=== PATIENT | male | born 1930 | race Hispanic/Latino ===

== ENCOUNTER 2018-04-03 17:07 | Inpatient (IN) | payer MEDICARE ==
[~2018-04-03 17:07] MED LIST: ISOVUE-370 76%-LOCM 1 ML ONE
[2018-04-03 17:44] LABS: #Basophils 0.2 thou/uL (0.0-0.2); #Eosinphils 0.1 thou/uL (0.0-0.7); #Lymphocytes 5.9 thou/uL (1.20-3.40); #Monocytes 0.5 thou/uL (0.11-0.59); #Neutrophils 5.7 thou/uL (1.40-6.50); %Basophils 1.7 % (0.0-1.0); %Eosinophils 0.8 % (0.0-10.0); %Lymphocytes 47.3 % (21.0-51.0); %Neutrophils 46.2 % (42.0-75.0); Mean Corpuscular HGB CONC 33.4 g/dL (32.0-36.0); Mean Corpuscular Hemoglobin 32.9 pg (27.0-31.0); Mean Corpuscular Volume 98.5 fL (78.0-98.0); Mean Platelet Volume 7.3 fL (7.4-10.4); Platelet Count 202 thou/uL (130-400); RBC Distribution Width 12.1 % (11.5-14.5); Red Blood Cell (RBC) Count 4.25 mill/uL (4.70-6.10); White Blood Cell (WBC) Count 12.4 thou/uL (4.8-10.8)
[2018-04-03 18:01] LABS: ALT (SGPT) Less than 7 U/L (8-55); AST (SGOT) 20 U/L (5-34); Albumin 3.9 g/dL (3.4-4.8); Alkaline Phosphatase 71 U/L (40-150); Anion Gap 13 mmol/L (10-20); BUN (Urea Nitrogen) 18 mg/dL (8.4-25.7); Bilirubin, Total 0.8 mg/dL (0.2-1.2); Calc. Creatinine Clearance 0 mL/min (70-130); Calcium 9.6 mg/dL (7.8-10.44); Carbon Dioxide 26 mmol/L (23-31); Chloride 107 mmol/L (98-107); Estimated GFR-MDRD 42; Globulin 2.9 g/dL (2.4-3.5); Glucose 113 mg/dL (83-110); Potassium 3.5 mmol/L (3.5-5.1); Protein, Total 6.8 g/dL (5.8-8.1); Sodium 142 mmol/L (136-145)
[2018-04-03 18:26] LABS: CKMB 0.7 ng/mL (0-6.6); Troponin I Less than 0.010 ng/mL (< 0.028)
[2018-04-03 18:34] LABS: Bilirubin Small (Negative); Blood, Urine Moderate (Negative); Clarity CLOUDY (Clear); Glucose, Urine (Dipstick) Negative (Negative); Leukocyte Small (Negative); Nitrite Negative (Negative); Protein, Urine (Dipstick) 30 mg/dL (Neg-Trace)
[2018-04-03 18:36] LABS: Hyaline Casts/LPF 7-10 HYALINE CAST LPF (0-3 Hyaline); Pathc Cast-AUWi Flag 1.16 (0-2.49)
[2018-04-03 18:37] LABS: Yeast-AUWi Flag 50.1 (0-25.0)
[2018-04-03 18:45] LABS: Bacteria/HPF Rare-Few HPF (None Seen); Yeast-All Forms None Seen HPF (None Seen)
--- NOTE | 2018-04-03 19:56 | RAD ---
PORTABLE CHEST: 04/03/18 HISTORY: Mental status change. COMPARISON: 09/09/16. Rounded mass lesion right mid lung is stable. Cardiomegaly. Lung carlin are clear of acute infiltrate . AICD leads have been placed since the prior study. IMPRESSION: No acute lung process identified. POS: [facility]
--- NOTE | 2018-04-03 21:23 | CT ---
CT BRAIN WITHOUT CONTRAST: 04/03/18 HISTORY: Syncope. Altered mental status. FINDINGS: There are changes of cortical atrophy and old infarction in the right occipital lobe. Ventricular siz e is appropriate and the basilar cisterns patent. No evidence of acute infarct, hemorrhage, midline s hift or abnormal extra-axial fluid collections are seen. The bony calvarium is intact. There is mucos al disease in the paranasal sinuses. There is an osteoma in the right anterior ethmoid air cells. IMPRESSION: No CT evidence of acute intracranial process. POS: [facility]
[2018-04-03] MEDS ORDERED: Nitrofurantoin Macrocrystal 50 MG CAP PO SCH (21:30)
--- NOTE | 2018-04-03 22:46 | CT ---
CT ABDOMEN AND PELVIS WITH IV CONTRAST: HISTORY: Left upper quadrant abdominal pain. COMPARISON: 12/24/2014 FINDINGS: A hamartoma in the right lower lobe is again seen. Mild atelectatic changes in the left lung base ar e again seen. There is a tiny calcified granuloma at the posterior aspect of the liver. The patient is post cholecystectomy. The spleen, pancreas, and adrenal glands are unremarkable. 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 There are cysts in the horseshoe kidney on both sides. There is a 9 mm atiya culus in the right ureter, at the pelvic inlet, which was not seen on the previous exam, with mild hy droureteronephrosis. No calculi are seen in the left ureter or in the urinary bladder. The prostate is enlarged. No free air, free fluid, or lymphadenopathy is seen in the abdomen or pelvis. The small bowel loops are not abnormally dilated. There is sigmoid diverticulosis. There is a 13 mm left paraaortic lymph node. Nonspecific stranding of the presacral fat is again not ed. There are vascular calcifications without evidence of aneurysmal dilatation of the abdominal aorta. There is an 8 mm lymph node in the gastrohepatic ligament. Degenerative changes are seen in the spin e. IMPRESSION: 1. Horseshoe kidney with cysts and calculi. 2. A 9 mm right ureteric calculus at the pelvic inlet with mild ipsilateral hydroureteronephrosis. 3. Sigmoid diverticulosis. 4. Prostatic enlargement. 5. 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 6. Prominent lymph nodes in the gastrohepatic ligament and retroperitoneum. POS: [facility]
[2018-04-03] MEDS ORDERED: Albuterol Sulfate 1.25 MG/3 ML NEB NEB PRN (23:04)
[2018-04-03] MEDS ORDERED: Ondansetron HCl/PF 4 MG/2 ML Vial IVP PRN (23:07)
[2018-04-03] MEDS ORDERED: Dextrose 50% Abboject 50 ML SYRINGE SLOW IVP PRN (23:07)
[2018-04-03] MEDS ORDERED: HumaLOG 300 UNITS/3 ML VIAL SC PRN (23:07)
[2018-04-03] MEDS ORDERED: Dextrose 5% in Water 1,000 ML IV PRN (23:07)
[2018-04-03 23:22] VITALS: BMI 32.7
[2018-04-04] MEDS: cefTRIAXone\\ROCEPHIN 1 GM in Sodium Chloride 0.9% 100 ML IVPB SCH (06:00)
[2018-04-04 06:24] LABS: Anion Gap 11 mmol/L (10-20); BUN (Urea Nitrogen) 17 mg/dL (8.4-25.7); Calc. Creatinine Clearance 55 mL/min (70-130); Carbon Dioxide 25 mmol/L (23-31); Chloride 110 mmol/L (98-107); Estimated GFR-MDRD 47; Glucose 93 mg/dL (83-110); Sodium 143 mmol/L (136-145)
[2018-04-04 06:28] LABS: Band 1 % (5-11); Hemoglobin 12.8 g/dL (14.0-18.0); Lymphocytes 53 % (21-51); MDiff Complete? YES; Mean Corpuscular HGB CONC 33.2 g/dL (32.0-36.0); Mean Corpuscular Hemoglobin 32.5 pg (27.0-31.0); Mean Platelet Volume 7.5 fL (7.4-10.4); Monocytes 4 % (0-10); Neutrophil 28 % (42-75); Platelet Count 193 thou/uL (130-400); Reactive Lymphocytes 14 % (0-10); Red Blood Cell (RBC) Count 3.95 mill/uL (4.70-6.10); White Blood Cell (WBC) Count 10.5 thou/uL (4.8-10.8)
[2018-04-04] MEDS: Carvedilol 3.125 MG TAB PO SCH (08:27)
[2018-04-04] MEDS: Finasteride 5 MG TAB PO SCH (08:27)
[2018-04-04] MEDS: Folic Acid 1 MG TAB PO SCH (08:27)
[2018-04-04] MEDS: Tamsulosin HCl 0.4 MG CAP PO SCH (08:28)
[2018-04-04] MEDS: Allopurinol 300 MG TAB PO SCH (08:28)
[2018-04-04] MEDS: Furosemide 20 MG TAB PO SCH (08:28)
[2018-04-04] MEDS: Apixaban 2.5 MG TAB PO SCH ×2 (08:29→21:39)
[2018-04-04] MEDS: Donepezil HCl 5 MG TAB PO SCH (08:29)
[2018-04-04] MEDS: Carbidopa/Levodopa 25-100 mg Tablet PO SCH (08:29)
[2018-04-04] MEDS ORDERED: Lisinopril 5 MG TAB PO SCH (09:00)
[2018-04-04] MEDS ORDERED: Enoxaparin Sodium 40 MG/0.4 ML SYRINGE SC SCH (09:00)
[2018-04-04] MEDS ORDERED: Metoprolol Tartrate 50 MG TAB PO SCH (09:00)
[2018-04-04] MEDS: Betamethasone 0.1% Cream 15 GM TUBE TOP SCH ×2 (09:32→21:39)
[2018-04-04] MEDS: Bicalutamide 50 MG TAB PO SCH (09:36)
--- NOTE | 2018-04-04 11:21 | PDOC.EVN ---
Event Note - Event Note Event Note: I am seeing this patient in follow-up from Dr. Jimenez. H&P not yet transcribed.
--- NOTE | 2018-04-04 11:25 | PDOC.PN ---
- Subjective Encounter Start Date: 04/04/18 Encounter Start Time: 11:22 Mr. Rowland was seen today in follow-up of diarrhea, abdominal pain, and syncope. He has been having problems with diarrhea, loose stools off and on for about a month. He will have cramping abdominal pain on the left side of his abdomen, and then will have a large volume loose stool. No blood. He will be very weak, afterward, and at times, will become incoherent,and confused, and even pass out. Usually this will happen only once a day, but it happens almost everyday. - Objective Resuscitation Status: Resuscitation Status FULL:Full Resuscitation MAR Reviewed: Yes Vital Signs & Weight: Vital Signs (12 hours) Temp Pulse Resp BP Pulse Ox 04/04/18 07:30 98.7 F 93 16 114/82 95 04/04/18 04:00 97.8 F 89 18 108/51 L 93 L Weight Weight 228 lb 4.8 oz I&O: 04/03/18 04/04/18 04/05/18 06:59 06:59 06:59 Intake Total 300 Output Total 150 Balance 150 Result Diagrams: 04/04/18 05:06 04/04/18 05:06 Additional Labs: Accuchecks 04/04/18 06:28 POC Glucose 78 Phys Exam - Physical Examination HEENT: PERRLA Respiratory: no wheezing, no rales, no rhonchi, clear to auscultation bilateral Cardiovascular: RRR, no significant murmur, no rub Gastrointestinal: soft, no distention, positive bowel sounds + left upper quandrant tenderness, no rebound tenderness Musculoskeletal: no edema, pulses present Psychiatric: normal affect, A&O x 3 Skin: normal turgor, cap refill <2 seconds Dx/Plan (1) Chronic diarrhea Code(s): K52.9 - NONINFECTIVE GASTROENTERITIS AND COLITIS, UNSPECIFIED Status : Acute (2) Syncope Code(s): R55 - SYNCOPE AND COLLAPSE Status: Acute (3) Abdominal pain Code(s): R10.9 - UNSPECIFIED ABDOMINAL PAIN Status: Acute (4) Parkinson disease Code(s): G20 - PARKINSON'S DISEASE Status: Chronic (5) Coronary artery disease Code(s): I25.10 - ATHSCL HEART DISEASE OF [place] CORONARY ARTERY W/O ANG PCTRS Status: Acute (6) DM type 2 (diabetes mellitus, type 2) Status: Chronic Qualifiers: Diabetes mellitus 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 helper insulin use: with 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 helper use Diabetes mellitus complication status: with unspecified complications Qualified Code(s) : E11.8 - Type 2 diabetes mellitus with unspecified complications; Z79.4 - terminal press operator (current) use of insulin (7) Complicated UTI (urinary tract infection) Code(s): N39.0 - URINARY TRACT INFECTION, SITE NOT SPECIFIED Status: Acute (8) HTN (hypertension) Code(s): I10 - ESSENTIAL (PRIMARY) HYPERTENSION Status: Chronic Qualifiers: Hypertension type: essential hypertension Qualified Code(s): I10 - Essential (primary) hypertension (9) Chronic systolic congestive heart failure, NYHA class 3 Code(s): I50.22 - CHRONIC SYSTOLIC (CONGESTIVE) HEART FAILURE Status: Acute Comment: EF- 30-35% in 2017 (10) Nephrolithiasis Status: Chronic - Plan * Diarrhea- Some of his symptoms sound like he may be having intermittent partial obstruction- however his was not noted on CT-scan. Will consult GI * Syncope- suspect this may be due to a vagal response after defecation. However he has a history of CAD,and has a defibrillator- will consult Cardiology for evaluation, and have his pacer-defibrillator interrogated * Complicated UTI due to nephrolithiasis- continue Rocephin * DM- blood glucose is stable * HTN- stable * Parkinson's disease- stable * Chronic systolic heart failure- compensated
--- NOTE | 2018-04-04 12:10 | HP ---
PRIMARY CARE PHYSICIAN: [facility] call. CODE STATUS: FULL CODE. TIME OF EVALUATION: 9:35 p.m. CHIEF COMPLAINT: Change in mental status. HISTORY OF PRESENT ILLNESS: This is an 87 years old male patient with past medical history of multiple comorbidities including chronic kidney disease, malingnacy cancer prostate, cardiomegaly, CHF with EF of 35% on last echo, diabetes, hyperlipidemia, hypertension, Parkinson's disease, who came to the hospital after having episodes of change in mental status per family member, the son and were at the room during my examination. The patient has been getting confused, disoriented, especially for the past month, but really worsening in the past 2-3 days. The patient occasionally has been sleepy most of the time, and having some episodes of near syncope every time. The patient has a bowel movement. The patient also reports that was having diarrhea for about a month with no clear etiology, visited the primary care doctor and was given some laxative. Symptoms were reported as severe. No clear triggers or alleviating factors. REVIEW OF SYSTEMS: Review of system was obtained with the help of the and the son. The patient is cooperative; however, as per family has been confused and forgetful. Constitutional: The patient had no fever, chills or generalized weakness. Respiratory: The patient has some cough, no sputum production or shortness of breath. Cardiovascular: No chest pain, palpitation. Gastrointestinal: The patient had nausea, vomiting, diarrhea for about a month, and some abdominal cramps. 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 Genitourinary: No burning with urination. Extremities: No leg swelling. All other systems were reviewed and are negative except for the findings mentioned above. PAST MEDICAL HISTORY: As mentioned in the HPI. PAST SURGICAL HISTORY: Gallbladder stent removal, cholecystectomy, tonsillectomy, pacemaker. PSYCHIATRIC HISTORY: Depression. SOCIAL HISTORY: The patient quit smoking 10 years ago. Lives at home with family. KNOWN ALLERGIES: No known drug allergies. REPORTED MEDICATIONS: Sertraline, cholecalciferol, allopurinol, finasteride, simvastatin, aspirin, bicalutamide, lisinopril, Flomax, carvedilol, furosemide, carbidopa/levodopa, pantoprazole, folic acid, and donepezil. PHYSICAL EXAMINATION: VITAL SIGNS: On presentation, blood pressure 100/67 with heart rate 104, respiratory rate was 20, temperature 98.8, pain 2/10, oxygen saturation 93 on room air. GENERAL APPEARANCE: The patient is alert, oriented, not in any acute distress. HEENT: Eyes: Normal conjunctiva, moist oral mucosa, anicteric. NECK: No JVD. RESPIRATORY: Bilateral air entry. No rales, no wheezing. Symmetric expansion. CARDIOVASCULAR: Normal rate, regular rhythm. No murmurs, no gallop. Bilateral leg edema. ABDOMEN: Soft, normal bowel sounds. MUSCULOSKELETAL: Baseline range of motion and strength. No tenderness. SKIN: Warm and intact. No pallor, no rash or redness. Peripheral pulses are present. Capillary refill seems to be intact. NEUROLOGIC: No evidence of any new focal weakness. Baseline speech. Cranial nerves seem to be intact. However, the patient is confused occasionally with short memory problems. PSYCHIATRIC: The patient is in good mood. No anxiety, oriented, optimal judgement. EKG was reviewed and discussed with the performing physician from the ER. The patient has normal sinus rhythm at the rate of 90 with frequent PVCs, AV dual paced rhythm. Abdomen and pelvis CT was done showed some renal stones, no severe hydronephrosis, some lymph nodes in the retroperitoneal area. LABORATORY DATA: Labs were drawn. The patient has white blood cell count 12.4 , hemoglobin 14, MCV 98.5, platelet count 202. Chemistry: Sodium 142, potassium 3.5, chloride 107, carbon dioxide 26, anion gap 13, BUN 18, creatinine 1.58. Old records that were reviewed by myself. The creatinine is 1.6, still about same value. GFR 42, glucose 113, calcium 9.6, total bilirubin 0.8, AST 20, ALT less than 7, alkaline phosphatase 71. Troponin less than 0.010. Beta-natriuretic peptide that was mildly elevated at 392. UA was reviewed. The patient had a white count in urine was 7-10. ASSESSMENT AND PLAN: The patient will be placed in the hospital with the following medical problem: 1. Urinary tract infection. The patient has white count in urine while treat the patient with antibiotics. We will need to follow cultures. 2. Nausea, vomiting, and diarrhea, this has been going on for the past month, with no clear triggers. The patient saw his primary care doctor, but no diagnosis was obtained at that point. We are going to send stool samples for culture and we will treat accordingly. The patient has had no sick contacts, no travels, and no exposure for antibiotics recently. The patient already on Rocephin. We will follow workup results to adjust treatment. 3. Hyperlipidemia. Continue atorvastatin, low cholesterol diet is advised. 4. Congestive heart failure. Reconcile home medications. Last echo was few months ago as per the patient and the patient's cattle knocker is Dr. Shin. We will need to be called in for further evaluation and management of medications. 5. History of Parkinson's disease. Continue carbidopa/levodopa. 6. Deep venous thrombosis prophylaxis. We will reconcile home medications. 7. Syncope, unclear etiology, will consult Dr Shin, will follow rec's. MTDD
--- NOTE | 2018-04-04 17:07 | CON ---
DATE OF CONSULTATION: 04/04/2018 REASON FOR CONSULTATION: Syncope. HISTORY OF PRESENT ILLNESS: Mr. Rowland is an 87-year-old gentleman who known in the past. He has a history of severe underlying coronary disease and opted against bypass surgery. He has also ICD plac ement. He states over the last several days to weeks, he has had significant diarrhea. He has been found slumped over. He was seen and evaluated in the emergency room with confusion and mental status changes. His ICD was interrogated with no significant source to his syncope. He denies chest pain, pressure, or other associated symptoms. PAST MEDICAL HISTORY: Ischemic cardiomyopathy, diabetes mellitus, hyperlipidemia, Parkinson disease, prostate cancer, chronic kidney disease, and depression. PAST SURGICAL HISTORY: Cholecystectomy, tonsillectomy, ICD placemen. SOCIAL HISTORY: No current tobacco or alcohol use. ALLERGIES: None. HOME MEDICATIONS: Include allopurinol, finasteride, carvedilol, Lasix, carbidopa/levodopa, sertralin e, simvastatin, aspirin, folic acid, and Donepezil. REVIEW OF SYSTEMS: Ten-point review of systems reviewed and as above, otherwise negative. PHYSICAL EXAMINATION: VITAL SIGNS: Blood pressure 99/52, pulse 80, temperature 97.5. GENERAL: Patient is a pleasant male who is in no acute distress. The patient appears his stated age . NEUROLOGIC: The patient is alert and oriented times 3 with no focal neurologic deficits. HEENT: Sclerae without icterus. Mouth has moist mucous membranes with normal pallor. NECK: No JVD. Carotid upstroke brisk. No bruits bilaterally. LUNGS: Clear to auscultation with unlabored respirations. BACK: No scoliosis or kyphosis. CARDIAC: Regular rate and rhythm with normal S1 and S2. No S3 or S4 noted. No significant rubs, murmurs, thrills, or gallops noted throughout the precordium. PMI is not displaced. There is no parasternal heave. ABDOMEN: Soft, nontender, nondistended. No peritoneal signs present. No hepatosplenomegaly. No abnormal striae. EXTREMITIES: 2+ femoral and 2+ dorsalis pedis pulses. No cyanosis, clubbing, or edema. SKIN: No gross abnormalities. PERTINENT LABS: Hemoglobin 12.8, creatinine 1.44, GFR 47. BNP of 392. IMPRESSION: 1. Syncope. 2. Ischemic cardiomyopathy. 3. Status post implantable cardioverter defibrillator. RECOMMENDATIONS: Recent ICD interrogated and did not find a source to his syncopal episode. This is likely due to volume contraction. BNP is slightly elevated. We would recommend volume replacement. GI has been consulted. Otherwise, continue current medical therapy as prescribed. We will hold li sinopril given hypotension. I would keep on telemetry monitoring overnight. If stable, we would transfer to medical.
[2018-04-04] MEDS: Atorvastatin Calcium 20 MG TAB PO SCH (21:39)
[2018-04-04] MEDS: Acetaminophen 325 MG TAB PO PRN (21:47)
--- NOTE | 2018-04-04 23:49 | CON ---
DATE OF CONSULTATION: 04/04/2018 REQUESTING PHYSICIAN: Dr. Cohen. REASON FOR CONSULTATION: Diarrhea and abdominal pain. HISTORY OF PRESENT ILLNESS: Pierre Rowland is an 87-year-old man with a significant past medical histo ry of severe coronary artery disease, ischemic cardiomyopathy with ejection fraction 35%, pacemaker a nd AICD placement and Parkinson's disease. He is morbidly obese. He was seen in the past by Dr. Shasta gage in 2014. He had a cholecystectomy with subsequent postoperative bile leak and had to have a b iliary stent placed temporarily. He fully recovered from that. Evidently, he has no chronic gastroi ntestinal symptoms until about the past month. He tells me that for about the past month, he has had left-sided abdominal pain off and on, worse over the past several days. He describes this primarily in the left upper quadrant, but also some in the left lower quadrant. It comes on randomly and is n ot particularly associated with eating. In addition to this, he will have diarrhea. He describes th is as only a single bowel movement per day, but this is evidently quite urgent, quite high volume and explosive and usually preceded by the left-sided cramping abdominal pain. There has been no melena or hematochezia. He estimates he has lost about 10 pounds or so. He has not had any significant vom iting. His appetite fluctuates. He was admitted to the hospital yesterday with altered mental statu s and presyncopal episode. Currently, he is alert and oriented and able to give a good history of hi s symptoms. PAST MEDICAL HISTORY: Chronic kidney disease, coronary artery disease, prostate cancer, ischemic car diomyopathy with ejection fraction 35%, diabetes, hypertension, hyperlipidemia, Parkinson's disease, cholecystectomy with postoperative bile leak 2014, ERCP with biliary stent placement in 2014, pacemak er/AICD placement, depression. ALLERGIES: No known drug allergies. OUTPATIENT MEDICATIONS: Sertraline, vitamin D, allopurinol, finasteride, simvastatin, aspirin, bical utamide, lisinopril, Flomax, carvedilol, furosemide, carbidopa/levodopa, pantoprazole, folic acid, do nepezil. INPATIENT MEDICATIONS: Allopurinol, Eliquis 2.5 mg b.i.d., Casodex, carbidopa/levodopa, Coreg, ceftr iaxone 1 gram IV q.24 hours, Aricept, Proscar, folic acid, Lasix, Protonix 40 mg daily, Zoloft, Floma x. SOCIAL HISTORY: He quit smoking about 10 years ago. FAMILY HISTORY: Noncontributory. PHYSICAL EXAMINATION: VITAL SIGNS: Temperature 97.5, pulse 80, blood pressure 99/52, 93% oxygen saturation on room air. GENERAL: Morbidly obese 87-year-old man lying in bed comfortably in no acute distress. MENTAL: He is alert and oriented to person and place. He is able to give pretty good details about his recent history as well as answer questions appropriately regarding current symptoms. SKIN: No jaundice, no rashes were palpable. EYES: No scleral icterus. Extraocular movements intact. ENT: Mucous membranes moist, no oral lesions. LYMPH: No submandibular, supraclavicular lymphadenopathy. THYROID: Nontender to palpation. HEART: Regular rate and rhythm. LUNGS: Distant breath sounds due to body habitus. No respiratory distress, no wheezing appreciated. ABDOMEN: Morbidly obese, nondistended, bowel sounds are present, soft, tender to palpation in the le ft side of the abdomen, particularly left upper quadrant, but no guarding or rebound tenderness. EXTREMITIES: No peripheral edema. VESSELS: Radial pulses 2+ bilaterally. NEUROLOGICAL: Cranial nerves II-XII intact bilaterally. LABORATORY STUDIES: WBC 10.5, hemoglobin 12.8, platelets 193. Sodium 143, potassium 3.0, BUN 17, cr eatinine 1.44, glucose 112. Troponin negative. BNP is elevated to 392.2. LFTs are all normal with total bilirubin 0.8, alkaline phosphatase 71, AST 20, ALT less than 7, albumin 3.9. Urinalysis demon strated 7-10 wbc's, positive for leukocyte esterase. ASSESSMENT AND PLAN: 1. Chronic diarrhea over the past month. 2. Left upper quadrant pain, also over the past month. It is unclear to what extent his reported di arrhea, and abdominal pain is directly related to these episodes of altered mental status. Symptoms might possibly represent left-sided colitic process. Need to consider infectious or ischemic etiolog ies, less likely inflammatory bowel disease. It is unclear to me whether he has ever had a colonosco py before, he thinks so, but it would have been a long time ago. Obviously, due to his age and comor bidities, he would be a higher procedure risk. I think the best course of action would be to await r esults of stool studies already ordered and collected. I have added C. difficile to this. If stool studies are positive, treat appropriately. If the stool studies are unrevealing and the patient miguel ins symptomatic, then diagnostic colonoscopy could be entertained. Thank you for the consultation. Please call any time with questions or concerns.
[2018-04-05] MEDS ORDERED: Furosemide 20 MG TAB PO SCH (09:00)
[2018-04-05] MEDS ORDERED: Bicalutamide 50 MG TAB PO SCH (09:00)
[2018-04-05] MEDS ORDERED: Folic Acid 1 MG TAB PO SCH (09:00)
[2018-04-05] MEDS ORDERED: Loratadine 10 MG TAB PO PRN (11:29)
[2018-04-05] MEDS ORDERED: Artificial Tears 18 DROP/0.9 ML EA EYE PRN (11:29)
[2018-04-05] MEDS ORDERED: Diabetic Tussin 200 MG/10 ML UDCUP PO PRN (11:29)
[2018-04-05] MEDS ORDERED: Zolpidem Tartrate 5 MG TAB PO PRN (11:29)
[2018-04-05] MEDS ORDERED: Ondansetron ODT 4 MG TAB PO PRN (11:29)
[2018-04-05] MEDS ORDERED: hydrALAZINE 20 MG/ML VIAL SLOW IVP PRN (11:29)
[2018-04-05] MEDS ORDERED: HYDROcodone/Acetaminophen 5/325 mg Tablet PO PRN (11:29)
[2018-04-05] MEDS ORDERED: Sodium Chloride 0.65% Nasal 44 ML BOT EA NARE PRN (11:29)
[2018-04-05] MEDS ORDERED: Mag-Al 1200 mg/1200 mg/30 ML UDCUP PO PRN (11:29)
[2018-04-05] MEDS ORDERED: Chloraseptic Spray 180 ml Bottle PO PRN (11:29)
[2018-04-05] MEDS ORDERED: Eucerin (Mineral Oil/Petrolatum,White) 30 gm Jar TOP PRN (11:29)
[2018-04-05 12:17] LABS: Eosinophils 1 % (0-10); Lymphocytes 67 % (21-51); Monocytes 6 % (0-10); Reactive Lymphocytes 5 % (0-10)
[2018-04-05 12:19] LABS: Hemoglobin 12.4 g/dL (14.0-18.0); Mean Corpuscular HGB CONC 32.4 g/dL (32.0-36.0); Mean Corpuscular Hemoglobin 31.9 pg (27.0-31.0); Mean Corpuscular Volume 98.4 fL (78.0-98.0); Platelet Count 189 thou/uL (130-400); RBC Distribution Width 12.1 % (11.5-14.5); Red Blood Cell (RBC) Count 3.89 mill/uL (4.70-6.10)
[2018-04-05 12:20] LABS: Mean Platelet Volume 7.8 fL (7.4-10.4)
[2018-04-05 12:21] LABS: MDiff Complete? YES; Neutrophil 21 % (42-75)
--- NOTE | 2018-04-05 12:46 | PRG ---
DATE OF SERVICE: 04/05/2018 Mr. Rowland states he is feeling better today. No current complaints. He states his diarrhea has imp roved. PHYSICAL EXAMINATION: VITAL SIGNS: Blood pressure 92/54, pulse 80, temperature 98.2. LUNGS: Clear to auscultation. CARDIAC: Regular rate and rhythm. ABDOMEN: Soft, nontender, nondistended. EXTREMITIES: 1+ pitting edema. PERTINENT LABORATORY DATA: Hemoglobin 12.4, creatinine 1.44. IMPRESSION: 1. Syncope. 2. Severe peripheral artery disease. 3. Status post implantable cardioverter/defibrillator. 4. Ischemic cardiomyopathy. RECOMMENDATIONS: Mr. Rowladn's symptoms of syncope, likely related to volume contraction. His ICD di d have several runs of atrial fibrillation with no significant dysrhythmias. There was no discharge present. Continue Eliquis to prevent stroke. He is also on aspirin in addition to atorvastatin. We will hold carvedilol due to hypotension and restart when more stable. We will also discontinue Lasi x.
[2018-04-05 12:48] LABS: Anion Gap 12 mmol/L (10-20); BUN (Urea Nitrogen) 18 mg/dL (8.4-25.7); Calc. Creatinine Clearance 49 mL/min (70-130); Calcium 9.1 mg/dL (7.8-10.44); Carbon Dioxide 24 mmol/L (23-31); Chloride 109 mmol/L (98-107); Estimated GFR-MDRD 41; Glucose 75 mg/dL (83-110); Sodium 142 mmol/L (136-145)
--- NOTE | 2018-04-05 14:41 | PDOC.PN ---
- Subjective Encounter Start Date: 04/05/18 Encounter Start Time: 08:10 -: old records requested/rev Patient seen and examined. No new complaints. No overnight events his left side abdominal pain is better today, no dizziness, no fever, no chest pain - Objective Resuscitation Status: Resuscitation Status FULL:Full Resuscitation MAR Reviewed: Yes Vital Signs & Weight: Weight Weight 228 lb 4.8 oz I&O: 04/04/18 04/05/18 04/06/18 06:59 06:59 06:59 Intake Total 300 240 Output Total 150 Balance 150 240 Result Diagrams: 04/05/18 03:30 04/05/18 03:30 Additional Labs: Accuchecks 04/04/18 04/04/18 20:33 16:43 POC Glucose 108 112 H Radiology Reviewed by me: Yes EKG Reviewed by me: Yes (pacing) Phys Exam - Physical Examination Constitutional: NAD HEENT: PERRLA, moist MMs, sclera anicteric Neck: no JVD, supple Respiratory: no wheezing, no rales, no rhonchi Cardiovascular: no significant murmur, no rub, irregular Gastrointestinal: soft, non-tender, no distention, positive bowel sounds Musculoskeletal: no edema, pulses present Neurological: non-focal, normal sensation, moves all 4 limbs Lymphatic: no nodes Psychiatric: normal affect, A&O x 3 Skin: no rash, normal turgor Dx/Plan (1) Syncope Code(s): R55 - SYNCOPE AND COLLAPSE Status: Acute Comment: due to volume contraction (2) UTI (urinary tract infection) Status: Acute (3) Abdominal pain Code(s): R10.9 - UNSPECIFIED ABDOMINAL PAIN Status: Acute Qualifiers: Abdominal location: left upper quadrant Qualified Code(s): R10.12 - Left upper quadrant pain (4) Chronic diarrhea Code(s): K52.9 - NONINFECTIVE GASTROENTERITIS AND COLITIS, UNSPECIFIED Status : Chronic (5) Chronic systolic congestive heart failure, NYHA class 3 Code(s): I50.22 - CHRONIC SYSTOLIC (CONGESTIVE) HEART FAILURE Status: Chronic Comment: EF- 30-35% in 2017 (6) Coronary artery disease Code(s): I25.10 - ATHSCL HEART DISEASE OF [place] CORONARY ARTERY W/O ANG PCTRS Status: Chronic (7) Nephrolithiasis Status: Chronic (8) Physical deconditioning Code(s): R53.81 - OTHER MALAISE Status: Acute (9) DM type 2 (diabetes mellitus, type 2) Status: Chronic Qualifiers: Diabetes mellitus terminologist insulin use: with terminologist use Diabetes mellitus complication status: with unspecified complications Qualified Code(s) : E11.8 - Type 2 diabetes mellitus with unspecified complications; Z79.4 - FDC (current) use of insulin (10) Dyslipidemia Code(s): E78.5 - HYPERLIPIDEMIA, UNSPECIFIED Status: Chronic (11) H/O prostate cancer Code(s): Z85.46 - PERSONAL HISTORY OF MALIGNANT NEOPLASM OF PROSTATE Status: Chronic (12) HTN (hypertension) Code(s): I10 - ESSENTIAL (PRIMARY) HYPERTENSION Status: Chronic Qualifiers: Hypertension type: essential hypertension Qualified Code(s): I10 - Essential (primary) hypertension (13) Ischemic cardiomyopathy Code(s): I25.5 - ISCHEMIC CARDIOMYOPATHY Status: Chronic Comment: with ef of around 30% (14) Macrocytic anemia Code(s): D53.9 - NUTRITIONAL ANEMIA, UNSPECIFIED Status: Chronic (15) Obesity (BMI 30-39.9) Code(s): E66.9 - OBESITY, UNSPECIFIED Status: Chronic (16) Parkinson disease Code(s): G20 - PARKINSON'S DISEASE Status: Chronic (17) CKD (chronic kidney disease) stage 3, GFR 30-59 ml/min Code(s): N18.3 - CHRONIC KIDNEY DISEASE, STAGE 3 (MODERATE) Status: Chronic - Plan cont current plan of care, continue antibiotics, PT/OT * medication reviewed as below * symptomatic treatment * continue rocephin * continue elliquis * medication adjusted for low BP * transfer to medical * start PT/OT and discharge planning. * GI and cardiology recommendation noted Review of Systems - Review of Systems ENT: negative: Ear Pain, Ear Discharge, Nose Pain, Nose Discharge, Nose Congestion, Mouth Pain, Mouth Swelling, Throat Pain, Throat Swelling, Other Respiratory: negative: Cough, Dry, Shortness of Breath, Hemoptysis, SOB with Excertion, Pleuritic Pain, Sputum, Wheezing Cardiovascular: negative: chest pain, palpitations, orthopnea, paroxysmal nocturnal dyspnea, edema, light headedness, other Gastrointestinal: negative: Nausea, Vomiting, Abdominal Pain, Diarrhea, Constipation, Melena, Hematochezia, Other Genitourinary: negative: Dysuria, Frequency, Incontinence, Hematuria, Retention , Other Musculoskeletal: negative: Neck Pain, Shoulder Pain, Arm Pain, Back Pain, Hand Pain, Leg Pain, Foot Pain, Other - Medications/Allergies Allergies/Adverse Reactions: Allergies Allergy/AdvReac Type Severity Reaction Status Date / Time No Known Drug Allergies Allergy Verified 09/09/16 17:33 Medications: Current Medications Acetaminophen (Tylenol) 650 mg PO Q4H PRN PRN Reason: Headache/Fever/Mild Pain (1-3) Last Admin: 04/04/18 21:47 Dose: 650 mg Albuterol Sulfate (Albuterol Sulfate) 0.63 mg NEB Q4H PRN PRN Reason: Wheezing Allopurinol (Zyloprim) 300 mg PO DAILY [facility] Last Admin: 04/04/18 08:28 Dose: 300 mg Apixaban (Eliquis) 2.5 mg PO BID [facility] Last Admin: 04/04/18 21:39 Dose: 2.5 mg Aspirin (Aspirin) 325 mg PO DAILY [facility] Atorvastatin Calcium (Lipitor) 20 mg PO HS [facility] Last Admin: 04/04/18 21:39 Dose: 20 mg Betamethasone Valerate (Valisone 0.1% Cream) 0 gm TOP BID [facility] Last Admin: 04/04/18 21:39 Dose: Not Given Bicalutamide (Casodex) 50 mg PO DAILY [facility] Last Admin: 04/04/18 09:36 Dose: 50 mg Carbidopa/Levodopa (Sinemet 25-100) 1 tab PO DAILY [facility] Last Admin: 04/04/18 08:29 Dose: 1 tab Carvedilol (Coreg) 3.125 mg PO DAILY [facility] Last Admin: 04/04/18 08:27 Dose: 3.125 mg Cholecalciferol (Vitamin D3) 1,000 units PO DAILY [facility] Dextrose/Water (Dextrose 50%) 25 gm SLOW IVP PRN PRN PRN Reason: Hypoglycemia Donepezil HCl (Aricept) 5 mg PO DAILY [facility] Last Admin: 04/04/18 08:29 Dose: 5 mg Finasteride (Proscar) 5 mg PO DAILY [facility] Last Admin: 04/04/18 08:27 Dose: 5 mg Folic Acid (Folvite) 1 mg PO DAILY [facility] Last Admin: 04/04/18 08:27 Dose: 1 mg Furosemide (Lasix) 20 mg PO DAILY [facility] Last Admin: 04/04/18 08:28 Dose: 20 mg Glucagon (Glucagon) 1 mg IM PRN PRN PRN Reason: Hypoglycemia Dextrose/Water (D5w) 1,000 mls @ 0 mls/hr IV .Q0M PRN PRN Reason: Hypoglycemia Ceftriaxone Sodium 1 gm/ (Sodium Chloride) 100 mls @ 200 mls/hr IVPB Q24HR [facility] Last Admin: 04/04/18 06:00 Dose: 100 mls Insulin Human Lispro (Humalog) 0 units SC .MILD SLIDING SCALE PRN PRN Reason: Mild Correctional Scale Ondansetron HCl (Zofran) 4 mg IVP Q6H PRN PRN Reason: Nausea/Vomiting Pantoprazole Sodium (Protonix) 40 mg PO DAILY [facility] Last Admin: 04/04/18 08:27 Dose: 40 mg Sertraline HCl (Zoloft) 50 mg PO DAILY [facility] Last Admin: 04/04/18 08:28 Dose: 50 mg Sodium Chloride (Flush - Normal Saline) 10 ml IVF Q12HR [facility] Last Admin: 04/04/18 21:39 Dose: 10 ml Sodium Chloride (Flush - Normal Saline) 10 ml IVF PRN PRN PRN Reason: Saline Flush Tamsulosin HCl (Flomax) 0.4 mg PO DAILY [facility] Last Admin: 04/04/18 08:28 Dose: 0.4 mg
--- NOTE | 2018-04-05 14:51 | PRG ---
DATE OF SERVICE: 04/05/2018 SUBJECTIVE: Mr. Rowland is feeling okay today. No chest pain. His left-sided abdominal pain is quit e mild. He has actually not had a bowel movement yet today. He is tolerating his diet. I met his s on as well who confirms that the patient has been having significant left-sided pain for the past sun and the bowel movements have been quite explosive though nonbloody. OBJECTIVE: GENERAL: No acute distress. HEART: Regular rate and rhythm. LUNGS: Clear to auscultation bilaterally. ABDOMEN: Bowel sounds are present, soft, nontender to palpation throughout today. EXTREMITIES: No peripheral edema. LABORATORY STUDIES: Stool is so far negative for Salmonella, Shigella, E. coli and Campylobacter. F ecal leukocytes are not elevated. C. difficile result is not yet back. ASSESSMENT AND PLAN: 1. Chronic diarrhea. 2. Left upper quadrant abdominal pain. I had another long discussion with the patient and his son regarding the differential for his symptom s. Need to consider left-sided colitic process. We are still awaiting on C. difficile result. At t his point, I think the best course would be to go ahead and hold the Eliquis today, and have him on a clear liquid diet tomorrow. The C. difficile would be back by then. If negative, then he could hav e a bowel prep tomorrow evening and plan for diagnostic EGD and colonoscopy on Sunday. The patient a nd his son are in agreement with the plan. Dr. Seth is covering for GI this weekend.
[2018-04-05 15:11] LABS: Potassium 2.9 mmol/L (3.5-5.1)
[2018-04-05] MEDS: Allopurinol 300 MG TAB PO SCH (16:57)
[2018-04-05] MEDS: cefTRIAXone\\ROCEPHIN 1 GM in Sodium Chloride 0.9% 100 ML IVPB SCH (16:57)
[2018-04-05] MEDS: Betamethasone 0.1% Cream 15 GM TUBE TOP SCH ×2 (16:57→19:51)
[2018-04-05] MEDS: Bicalutamide 50 MG TAB PO SCH (16:57)
[2018-04-05] MEDS: Aspirin 325 MG TAB PO SCH (16:57)
[2018-04-05] MEDS: Carbidopa/Levodopa 25-100 mg Tablet PO SCH (16:58)
[2018-04-05] MEDS: Finasteride 5 MG TAB PO SCH (16:58)
[2018-04-05] MEDS: Donepezil HCl 5 MG TAB PO SCH (16:58)
[2018-04-05] MEDS: Folic Acid 1 MG TAB PO SCH (16:58)
[2018-04-05] MEDS: Tamsulosin HCl 0.4 MG CAP PO SCH (16:59)
[2018-04-05] MEDS: Apixaban 2.5 MG TAB PO SCH (17:00)
[2018-04-05] MEDS: Carvedilol 3.125 MG TAB PO SCH (17:00)
[2018-04-05] MEDS: Furosemide 20 MG TAB PO SCH (17:01)
[2018-04-05] MEDS ORDERED: Potassium Chloride 20 MEQ TAB PO SCH (17:30)
[2018-04-05] MEDS: Atorvastatin Calcium 20 MG TAB PO SCH (19:50)
[2018-04-05] MEDS: Famotidine 20 MG TAB PO SCH (19:50)
[2018-04-05] MEDS: Acetaminophen 325 MG TAB PO PRN (23:30)
[2018-04-06] MEDS: cefTRIAXone\\ROCEPHIN 1 GM in Sodium Chloride 0.9% 100 ML IVPB SCH (05:46)
[2018-04-06] MEDS: Donepezil HCl 5 MG TAB PO SCH (09:29)
[2018-04-06] MEDS: Famotidine 20 MG TAB PO SCH ×2 (09:29→21:11)
[2018-04-06] MEDS: Aspirin 325 MG TAB PO SCH (09:29)
[2018-04-06] MEDS: Tamsulosin HCl 0.4 MG CAP PO SCH (09:30)
[2018-04-06] MEDS: Potassium Chloride 20 MEQ TAB PO SCH (09:30)
[2018-04-06] MEDS: Folic Acid 1 MG TAB PO SCH (09:30)
[2018-04-06] MEDS: Allopurinol 300 MG TAB PO SCH (09:31)
[2018-04-06] MEDS: Finasteride 5 MG TAB PO SCH (09:33)
[2018-04-06] MEDS: Betamethasone 0.1% Cream 15 GM TUBE TOP SCH ×2 (09:35→21:10)
[2018-04-06] MEDS: Bicalutamide 50 MG TAB PO SCH (11:37)
[2018-04-06] MEDS: Carbidopa/Levodopa 25-100 mg Tablet PO SCH (11:40)
--- NOTE | 2018-04-06 16:16 | PDOC.PN ---
- Subjective Encounter Start Date: 04/06/18 Encounter Start Time: 11:45 Subjective: pt up in bed no complains - Objective Resuscitation Status: Resuscitation Status FULL:Full Resuscitation Vital Signs & Weight: Vital Signs (12 hours) Temp Pulse Resp BP Pulse Ox 04/06/18 11:00 97.5 F L 86 18 100/56 L 96 04/06/18 08:00 97.6 F 79 04/06/18 07:22 97.6 F 79 18 100/65 95 Weight Weight 228 lb 4.8 oz I&O: 04/05/18 04/06/18 04/07/18 06:59 06:59 06:59 Intake Total 240 910 Output Total 350 Balance 240 560 Result Diagrams: 04/05/18 03:30 04/05/18 03:30 Additional Labs: Accuchecks 04/06/18 04/06/18 04/05/18 11:09 04:24 20:38 POC Glucose 131 H 87 122 H 04/05/18 17:03 POC Glucose 104 Phys Exam - Physical Examination Neck: no nodes, no JVD, supple, full ROM Respiratory: no wheezing, no rales, no rhonchi, wheezing present, clear to auscultation bilateral Cardiovascular: RRR, no significant murmur, no rub, gallop, irregular Gastrointestinal: soft, non-tender, no distention, positive bowel sounds Dx/Plan (1) Syncope Code(s): R55 - SYNCOPE AND COLLAPSE Status: Acute Comment: due to volume contraction (2) Abdominal pain Code(s): R10.9 - UNSPECIFIED ABDOMINAL PAIN Status: Acute Qualifiers: Abdominal location: left upper quadrant Qualified Code(s): R10.12 - Left upper quadrant pain (3) CKD (chronic kidney disease) stage 3, GFR 30-59 ml/min Code(s): N18.3 - CHRONIC KIDNEY DISEASE, STAGE 3 (MODERATE) Status: Chronic - Plan pt up in bed no complains -: stool cx negative -: per gi note pt to have EGD/colo -: pt's urine cx negative will discontinue abx * . Review of Systems - Review of Systems Respiratory: negative: Cough, Dry, Shortness of Breath, Hemoptysis, SOB with Excertion, Pleuritic Pain, Sputum, Wheezing Cardiovascular: negative: chest pain, palpitations, orthopnea, paroxysmal nocturnal dyspnea, edema, light headedness, other Gastrointestinal: negative: Nausea, Vomiting, Abdominal Pain, Diarrhea, Constipation, Melena, Hematochezia, Other - Medications/Allergies Allergies/Adverse Reactions: Allergies Allergy/AdvReac Type Severity Reaction Status Date / Time No Known Drug Allergies Allergy Verified 09/09/16 17:33 Medications: Current Medications Acetaminophen (Tylenol) 650 mg PO Q4H PRN PRN Reason: Headache/Fever/Mild Pain (1-3) Last Admin: 04/05/18 23:30 Dose: 650 mg Hydrocodone Bitart/Acetaminophen ([place] 5/325) 1 tab PO Q4H PRN PRN Reason: Moderate Pain (4-6) Al Hydroxide/Mg Hydroxide (Maalox) 15 ml PO Q4H PRN PRN Reason: Heartburn or Indigestion Albuterol Sulfate (Albuterol Sulfate) 0.63 mg NEB Q4H PRN PRN Reason: Wheezing Allopurinol (Zyloprim) 300 mg PO DAILY [facility] Last Admin: 04/06/18 09:31 Dose: 300 mg Artificial Tears (Tears Naturale) 0 drop EA EYE PRN PRN PRN Reason: Dry Eyes Aspirin (Aspirin) 325 mg PO DAILY [facility] Last Admin: 04/06/18 09:29 Dose: 325 mg Atorvastatin Calcium (Lipitor) 20 mg PO HS [facility] Last Admin: 04/05/18 19:50 Dose: 20 mg Betamethasone Valerate (Valisone 0.1% Cream) 0 gm TOP BID [facility] Last Admin: 04/06/18 09:35 Dose: 1 applic Bicalutamide (Casodex) 50 mg PO DAILY [facility] Last Admin: 04/06/18 11:37 Dose: 50 mg Carbidopa/Levodopa (Sinemet 25-100) 1 tab PO DAILY [facility] Last Admin: 04/06/18 11:40 Dose: Not Given Cholecalciferol (Vitamin D3) 1,000 units PO DAILY [facility] Last Admin: 04/06/18 09:31 Dose: 1,000 units Dextrose/Water (Dextrose 50%) 25 gm SLOW IVP PRN PRN PRN Reason: Hypoglycemia Donepezil HCl (Aricept) 5 mg PO DAILY [facility] Last Admin: 04/06/18 09:29 Dose: 5 mg Famotidine (Pepcid) 20 mg PO BID [facility] Last Admin: 04/06/18 09:29 Dose: 20 mg Finasteride (Proscar) 5 mg PO DAILY [facility] Last Admin: 04/06/18 09:33 Dose: 5 mg Folic Acid (Folvite) 1 mg PO DAILY [facility] Last Admin: 04/06/18 09:30 Dose: 1 mg Glucagon (Glucagon) 1 mg IM PRN PRN PRN Reason: Hypoglycemia Guaifenesin (Robitussin Sf) 200 mg PO Q4H PRN PRN Reason: Cough Hydralazine HCl (Apresoline) 10 mg SLOW IVP Q4H PRN PRN Reason: Systolic BP > 180 Dextrose/Water (D5w) 1,000 mls @ 0 mls/hr IV .Q0M PRN PRN Reason: Hypoglycemia Insulin Human Lispro (Humalog) 0 units SC .MILD SLIDING SCALE PRN PRN Reason: Mild Correctional Scale Loratadine (Claritin) 10 mg PO DAILYPRN PRN PRN Reason: Sinus Symptoms Last Admin: 04/05/18 23:30 Dose: 10 mg Mineral Oil/White Petrolatum (Eucerin Cream) 0 gm TOP BIDPRN PRN PRN Reason: Dry Skin Ondansetron HCl (Zofran) 4 mg IVP Q6H PRN PRN Reason: Nausea/Vomiting Ondansetron HCl (Zofran Odt) 4 mg PO Q6H PRN PRN Reason: Nausea/Vomiting Pantoprazole Sodium (Protonix) 40 mg PO DAILY [facility] Last Admin: 04/06/18 09:31 Dose: 40 mg Phenol (Chloraseptic [place] 180 Ml Bot) 0 ml PO PRN PRN PRN Reason: Sore Throat Potassium Chloride (K-Dur) 20 meq PO QAM-WM [facility] Last Admin: 04/06/18 09:30 Dose: 20 meq Sertraline HCl (Zoloft) 50 mg PO DAILY [facility] Last Admin: 04/06/18 09:31 Dose: 50 mg Sodium Chloride (Flush - Normal Saline) 10 ml IVF Q12HR [facility] Last Admin: 04/06/18 09:32 Dose: 10 ml Sodium Chloride (Flush - Normal Saline) 10 ml IVF PRN PRN PRN Reason: Saline Flush Last Admin: 04/06/18 05:46 Dose: 10 ml Sodium Chloride ([place] Nasal [place] 0.65%) 0 ml EA NARE QIDPRN PRN PRN Reason: Nasal Congestion Tamsulosin HCl (Flomax) 0.4 mg PO DAILY [facility] Last Admin: 04/06/18 09:30 Dose: 0.4 mg Zolpidem Tartrate (Ambien) 5 mg PO HSPRN PRN PRN Reason: Insomnia
[2018-04-06] MEDS ORDERED: GoLYTELY 4,000 ml Bottle PO SCH (18:00)
[2018-04-06] MEDS: Atorvastatin Calcium 20 MG TAB PO SCH (21:11)
--- NOTE | 2018-04-07 05:56 | PRG ---
DATE OF SERVICE: 04/06/2018 REASON FOR CONSULTATION: Diarrhea. SUBJECTIVE: The patient states that he is doing well today with no complaints or problems overnight. He denies any further episodes of diarrhea during this admission and has been able to tolerate a cl ear liquid diet today without difficulty. Currently, he denies any nausea, vomiting, fevers, chills, abdominal pain, diarrhea or constipation. OBJECTIVE: VITAL SIGNS: Temperature 97.8, pulse 88, blood pressure 122/84, respiratory rate 18, satting 93% on room air. GENERAL: The patient is lying in bed in no acute distress. CARDIOVASCULAR: Regular rate and rhythm. RESPIRATORY: Clear to auscultation bilaterally. ABDOMEN: Normoactive bowel sounds, soft, nontender, nondistended. EXTREMITIES: No cyanosis, clubbing or edema. LABORATORY DATA: No current studies are available for review. Although, upon review of his Infectio us Disease studies, they were all negative including C. difficile. IMAGING DATA: No current GI imaging is available for review. ASSESSMENT AND PLAN: The patient is an 87-year-old gentleman presenting with a stated history of chr onic diarrhea and left upper quadrant abdominal pain. Chronic diarrhea. The patient is presenting with a longstanding history of chronic diarrhea that was described as nonbloody explosive bowel movements prior to admission that had been going on for the p ast month; however, during this hospitalization, he has had relatively little bowel movements with no bowel movements within the last 24-48 hours. With negative infectious stool workup, a possible smal l bowel or quick process could be contributing to his diarrhea. Therefore, intraluminal evaluation w ith upper and lower endoscopy is indicated. RECOMMENDATIONS: 1. We will continue patient on clear liquid diet today with plans for n.p.o. at midnight in preparat ion for procedures. 2. We will proceed with both EGD and colonoscopy tomorrow morning for intraluminal evaluation of the small bowel and colon to determine possible chronic diarrhea. We will continue to follow. Please call with any questions.
[2018-04-07] MEDS: Allopurinol 300 MG TAB PO SCH ×2 (09:17→18:02)
[2018-04-07] MEDS: Potassium Chloride 20 MEQ TAB PO SCH ×2 (09:17→18:00)
[2018-04-07] MEDS ORDERED: PROPOFOL 200 MG/20 ML VIAL ONE (11:27)
[2018-04-07] MEDS ORDERED: PHENYLEPHRINE-NS 100 MCG/ML 10 ML SYRINGE ONE ×2 (11:27→16:32)
[2018-04-07] MEDS ORDERED: Lidocaine 1% PF 5 ML VIAL ONE (11:27)
--- NOTE | 2018-04-07 15:27 | PDOC.PN ---
- Subjective Encounter Start Date: 04/07/18 Encounter Start Time: 12:00 Subjective: pt up in bed appears drowsy but easily aroused - Objective Resuscitation Status: Resuscitation Status FULL:Full Resuscitation Vital Signs & Weight: Vital Signs (12 hours) Temp Pulse Resp BP Pulse Ox 04/07/18 11:00 97.6 F 91 18 147/81 H 94 L 04/07/18 08:00 97.7 F 04/07/18 07:50 97.7 F 84 18 114/70 95 Weight Weight 228 lb 4.8 oz I&O: 04/06/18 04/07/18 04/08/18 06:59 06:59 06:59 Intake Total 910 6590 Output Total 350 450 Balance 560 6140 Result Diagrams: 04/05/18 03:30 04/05/18 03:30 Additional Labs: Accuchecks 04/07/18 04/07/18 04/06/18 11:08 05:20 19:48 POC Glucose 85 80 110 04/06/18 15:53 POC Glucose 122 H Phys Exam - Physical Examination Neck: no nodes, no JVD, supple, full ROM Respiratory: no wheezing, no rales, no rhonchi, wheezing present, clear to auscultation bilateral Cardiovascular: RRR, no significant murmur, no rub, gallop, irregular Gastrointestinal: soft, non-tender, no distention, positive bowel sounds Dx/Plan (1) Syncope Code(s): R55 - SYNCOPE AND COLLAPSE Status: Acute Comment: due to volume contraction (2) Abdominal pain Code(s): R10.9 - UNSPECIFIED ABDOMINAL PAIN Status: Acute Qualifiers: Abdominal location: left upper quadrant Qualified Code(s): R10.12 - Left upper quadrant pain (3) CKD (chronic kidney disease) stage 3, GFR 30-59 ml/min Code(s): N18.3 - CHRONIC KIDNEY DISEASE, STAGE 3 (MODERATE) Status: Chronic - Plan stool cx negative. pt going for EGD colonosocpy today -: ? celiac disease will check serology -: tsh is normal. * . Review of Systems - Review of Systems Respiratory: negative: Cough, Dry, Shortness of Breath, Hemoptysis, SOB with Excertion, Pleuritic Pain, Sputum, Wheezing Cardiovascular: negative: chest pain, palpitations, orthopnea, paroxysmal nocturnal dyspnea, edema, light headedness, other Gastrointestinal: negative: Nausea, Vomiting, Abdominal Pain, Diarrhea, Constipation, Melena, Hematochezia, Other Genitourinary: negative: Dysuria, Frequency, Incontinence, Hematuria, Retention , Other Musculoskeletal: negative: Neck Pain, Shoulder Pain, Arm Pain, Back Pain, Hand Pain, Leg Pain, Foot Pain, Other - Medications/Allergies Allergies/Adverse Reactions: Allergies Allergy/AdvReac Type Severity Reaction Status Date / Time No Known Drug Allergies Allergy Verified 09/09/16 17:33 Medications: Current Medications Acetaminophen (Tylenol) 650 mg PO Q4H PRN PRN Reason: Headache/Fever/Mild Pain (1-3) Last Admin: 04/05/18 23:30 Dose: 650 mg Hydrocodone Bitart/Acetaminophen ([place] 5/325) 1 tab PO Q4H PRN PRN Reason: Moderate Pain (4-6) Al Hydroxide/Mg Hydroxide (Maalox) 15 ml PO Q4H PRN PRN Reason: Heartburn or Indigestion Albuterol Sulfate (Albuterol Sulfate) 0.63 mg NEB Q4H PRN PRN Reason: Wheezing Allopurinol (Zyloprim) 300 mg PO DAILY [facility] Last Admin: 04/07/18 09:17 Dose: Not Given Artificial Tears (Tears Naturale) 0 drop EA EYE PRN PRN PRN Reason: Dry Eyes Aspirin (Aspirin) 325 mg PO DAILY [facility] Last Admin: 04/06/18 09:29 Dose: 325 mg Atorvastatin Calcium (Lipitor) 20 mg PO HS [facility] Last Admin: 04/06/18 21:11 Dose: 20 mg Betamethasone Valerate (Valisone 0.1% Cream) 0 gm TOP BID [facility] Last Admin: 04/06/18 21:10 Dose: 1 applic Bicalutamide (Casodex) 50 mg PO DAILY [facility] Last Admin: 04/06/18 11:37 Dose: 50 mg Carbidopa/Levodopa (Sinemet 25-100) 1 tab PO DAILY [facility] Last Admin: 04/06/18 11:40 Dose: Not Given Cholecalciferol (Vitamin D3) 1,000 units PO DAILY [facility] Last Admin: 04/06/18 09:31 Dose: 1,000 units Dextrose/Water (Dextrose 50%) 25 gm SLOW IVP PRN PRN PRN Reason: Hypoglycemia Donepezil HCl (Aricept) 5 mg PO DAILY [facility] Last Admin: 04/06/18 09:29 Dose: 5 mg Famotidine (Pepcid) 20 mg PO BID [facility] Last Admin: 04/06/18 21:11 Dose: 20 mg Finasteride (Proscar) 5 mg PO DAILY [facility] Last Admin: 04/06/18 09:33 Dose: 5 mg Folic Acid (Folvite) 1 mg PO DAILY [facility] Last Admin: 04/06/18 09:30 Dose: 1 mg Glucagon (Glucagon) 1 mg IM PRN PRN PRN Reason: Hypoglycemia Guaifenesin (Robitussin Sf) 200 mg PO Q4H PRN PRN Reason: Cough Hydralazine HCl (Apresoline) 10 mg SLOW IVP Q4H PRN PRN Reason: Systolic BP > 180 Dextrose/Water (D5w) 1,000 mls @ 0 mls/hr IV .Q0M PRN PRN Reason: Hypoglycemia Insulin Human Lispro (Humalog) 0 units SC .MILD SLIDING SCALE PRN PRN Reason: Mild Correctional Scale Loratadine (Claritin) 10 mg PO DAILYPRN PRN PRN Reason: Sinus Symptoms Last Admin: 04/05/18 23:30 Dose: 10 mg Mineral Oil/White Petrolatum (Eucerin Cream) 0 gm TOP BIDPRN PRN PRN Reason: Dry Skin Ondansetron HCl (Zofran) 4 mg IVP Q6H PRN PRN Reason: Nausea/Vomiting Ondansetron HCl (Zofran Odt) 4 mg PO Q6H PRN PRN Reason: Nausea/Vomiting Pantoprazole Sodium (Protonix) 40 mg PO DAILY [facility] Last Admin: 04/06/18 09:31 Dose: 40 mg Phenol (Chloraseptic [place] 180 Ml Bot) 0 ml PO PRN PRN PRN Reason: Sore Throat Potassium Chloride (K-Dur) 20 meq PO QAM[facility] Last Admin: 04/07/18 09:17 Dose: Not Given Sertraline HCl (Zoloft) 50 mg PO DAILY [facility] Last Admin: 04/06/18 09:31 Dose: 50 mg Sodium Chloride (Flush - Normal Saline) 10 ml IVF Q12HR [facility] Last Admin: 04/07/18 09:20 Dose: 10 ml Sodium Chloride (Flush - Normal Saline) 10 ml IVF PRN PRN PRN Reason: Saline Flush Last Admin: 04/06/18 05:46 Dose: 10 ml Sodium Chloride ([place] Nasal [place] 0.65%) 0 ml EA NARE QIDPRN PRN PRN Reason: Nasal Congestion Tamsulosin HCl (Flomax) 0.4 mg PO DAILY [facility] Last Admin: 04/06/18 09:30 Dose: 0.4 mg Zolpidem Tartrate (Ambien) 5 mg PO HSPRN PRN PRN Reason: Insomnia
[2018-04-07] MEDS: Carbidopa/Levodopa 25-100 mg Tablet PO SCH (17:58)
[2018-04-07] MEDS: Bicalutamide 50 MG TAB PO SCH (17:59)
[2018-04-07] MEDS: Folic Acid 1 MG TAB PO SCH (18:00)
[2018-04-07] MEDS: Finasteride 5 MG TAB PO SCH (18:00)
[2018-04-07] MEDS: Famotidine 20 MG TAB PO SCH ×2 (18:01→21:17)
[2018-04-07] MEDS: Tamsulosin HCl 0.4 MG CAP PO SCH (18:01)
[2018-04-07] MEDS: Aspirin 325 MG TAB PO SCH (18:02)
[2018-04-07] MEDS: Betamethasone 0.1% Cream 15 GM TUBE TOP SCH ×2 (18:04→21:17)
[2018-04-07] MEDS: Donepezil HCl 5 MG TAB PO SCH (18:05)
[2018-04-07] MEDS: Atorvastatin Calcium 20 MG TAB PO SCH (21:17)
--- NOTE | 2018-04-07 21:37 | OP ---
DATE OF PROCEDURE: 04/07/2018 PROCEDURES: Esophagogastroduodenoscopy with biopsy, colonoscopy with biopsy, polypectomy and control of hemorrhage. INDICATION FOR PROCEDURE: Chronic diarrhea, left upper quadrant abdominal pain. DESCRIPTION OF PROCEDURES: After the risks and benefits of the procedures were explained to the sedrick ent including risks of bleeding, infection, perforation, reactions to anesthesia, aspiration and/or p ain, informed consent was obtained. The patient was then taken to the endoscopy suite where deep sed ation was administered via propofol and anesthesia support. Once adequate sedation was achieved, the standard gastroscope was introduced into the mouth with intubation of the esophagus, stomach and pro ximal small intestine with the findings listed below. Upon completion of this portion of the procedu re, all equipment was removed and the bed was rotated approximately 180 degrees in preparation for th e colonoscopy. After a digital rectal examination, the standard colonoscope was then introduced into the rectum and advanced to the cecum with moderate difficulty requiring manual abdominal pressure to facilitate passage of the colonoscope from the ascending colon to the cecum. The quality of the pre p was poor with significant lack of visualization in the right colon secondary to retained both solid and liquid stool. Polyps less than 5-6 mm in size could have been missed based on this prep. The p atient tolerated the procedure well with no immediate perioperative complications. After the procedu res were complete, the patient was then taken to PACU in satisfactory condition. EGD FINDINGS: Esophagus: Normal-appearing mucosa was seen in the proximal, mid and distal esophagus. There was no evidence of ulcers, erosions, mass lesions or active/recent bleeding. Stomach: Normal-appearing mucosa was seen in the gastric cardia, fundus, along the greater curvature , antrum and incisura. An 8-9 mm submucosal nodule was seen in the gastric body along the posterior wall that displayed pillow sign upon manipulation with the biopsy forceps. Biopsies were taken of th is nodule and placed in a specimen jar for evaluation. Otherwise, there was no evidence of erosions, ulcerations, mass lesions or active/recent bleeding. Duodenum: Normal-appearing mucosa was seen in both the duodenal bulb and second portion of the duode num. There was no evidence of erosions, ulcerations, mass lesions or active/recent bleeding. Biopsi es were taken from the small bowel for evaluation of chronic diarrhea. IMPRESSION: 1. An 8-9 mm submucosal nodule was seen in the gastric body, status post biopsies. 2. Otherwise, normal upper endoscopy. COLONOSCOPY FINDINGS: Digital Rectal Exam: Small external hemorrhoids were noted on external examination. Colon Findings: A large amount of both solid and liquid stool was seen in the right colon transverse and moderately within the left colon, thereby limiting visualization significantly. The quality of the prep was inadequate for the evaluation of fine mucosal lesions less than 6-7 mm in size and there fore polyps could have been missed. Of the mucosa seen, there were two 5-6 mm transverse colon polyp s that were completely removed with snare cautery polypectomy. They were retrieved and placed in a s pecimen jar for evaluation. There were also 4 polyps seen in the descending colon measuring between 6 mm and 15 mm in size. These were all removed completely with snare cautery polypectomy with en blo c excision. The largest polyp measuring 15 mm required the use of 2 Hemoclips to approximate the muc osal defect, but with good hemostasis achieved. Scattered medium-sized diverticula were seen in the distal descending and sigmoid colon. The mucosa within the rectum was normal. Internal hemorrhoids were seen on rectal retroflexion. IMPRESSION: 1. Poor colonic preparation limiting visualization, especially within the right colon and transverse colon. 2. Two 5-6 mm transverse colon polyps, status post snare cautery polypectomy. 3. Four polyps measuring 6-15 mm in size were seen in the descending colon and completely removed wi th snare cautery polypectomy. Hemoclip x2 was used to approximate the mucosal defect on the 15 mm si ze polyp. 4. [id number] left-sided diverticulosis. 5. Internal and external hemorrhoids. RECOMMENDATIONS: 1. We will follow up on biopsy results with further colonoscopy interval determined by pathology res ults. 2. We would continue higher fiber diet for chronic diarrhea. 3. We would continue PPI 40 mg daily given relief of abdominal pain with this medication. 4. We will place the patient on a full liquid diet and advance as tolerated. We will continue to follow. Please call with any questions.
[2018-04-08] MEDS: Folic Acid 1 MG TAB PO SCH (09:28)
[2018-04-08] MEDS: Tamsulosin HCl 0.4 MG CAP PO SCH (09:28)
[2018-04-08] MEDS: Aspirin 325 MG TAB PO SCH (09:28)
[2018-04-08] MEDS: Potassium Chloride 20 MEQ TAB PO SCH (09:28)
[2018-04-08] MEDS: Finasteride 5 MG TAB PO SCH (09:29)
[2018-04-08] MEDS: Donepezil HCl 5 MG TAB PO SCH (09:29)
[2018-04-08] MEDS: Famotidine 20 MG TAB PO SCH ×2 (09:29→19:58)
[2018-04-08] MEDS: Bicalutamide 50 MG TAB PO SCH (09:30)
[2018-04-08] MEDS: Carbidopa/Levodopa 25-100 mg Tablet PO SCH (09:30)
[2018-04-08] MEDS: Betamethasone 0.1% Cream 15 GM TUBE TOP SCH ×2 (09:36→19:54)
[2018-04-08] MEDS: Allopurinol 300 MG TAB PO SCH (10:04)
[2018-04-08] MEDS: Atorvastatin Calcium 20 MG TAB PO SCH (19:58)
--- NOTE | 2018-04-08 21:28 | PDOC.PN ---
- Subjective Encounter Start Date: 04/08/18 Encounter Start Time: 10:30 Subjective: pt up in bed no complains - Objective Resuscitation Status: Resuscitation Status FULL:Full Resuscitation Vital Signs & Weight: Vital Signs (12 hours) Temp Pulse Resp BP Pulse Ox 04/08/18 19:45 98.9 F 66 16 137/69 97 04/08/18 16:56 98.1 F 83 18 111/67 96 04/08/18 11:34 98.1 F 84 18 104/65 95 Weight Weight 228 lb 4.8 oz I&O: 04/07/18 04/08/18 04/09/18 06:59 06:59 06:59 Intake Total 6590 1490 800 Output Total 450 175 750 Balance 6140 1315 50 Result Diagrams: 04/09/18 04:29 04/09/18 06:39 Additional Labs: Accuchecks 04/08/18 04/08/18 04/08/18 16:26 11:03 05:28 POC Glucose 148 H 132 H 76 04/07/18 20:20 POC Glucose 141 H Phys Exam - Physical Examination Neck: no nodes, no JVD, supple, full ROM Respiratory: no wheezing, no rales, no rhonchi, wheezing present, clear to auscultation bilateral Cardiovascular: RRR, no significant murmur, no rub, gallop, irregular Dx/Plan (1) Syncope Code(s): R55 - SYNCOPE AND COLLAPSE Status: Acute Comment: due to volume contraction (2) Abdominal pain Code(s): R10.9 - UNSPECIFIED ABDOMINAL PAIN Status: Acute Qualifiers: Abdominal location: left upper quadrant Qualified Code(s): R10.12 - Left upper quadrant pain (3) CKD (chronic kidney disease) stage 3, GFR 30-59 ml/min Code(s): N18.3 - CHRONIC KIDNEY DISEASE, STAGE 3 (MODERATE) Status: Chronic - Plan pt going for egd/colonoscopy -: will continue current meds * . Review of Systems - Review of Systems Respiratory: negative: Cough, Dry, Shortness of Breath, Hemoptysis, SOB with Excertion, Pleuritic Pain, Sputum, Wheezing Cardiovascular: negative: chest pain, palpitations, orthopnea, paroxysmal nocturnal dyspnea, edema, light headedness, other Gastrointestinal: negative: Nausea, Vomiting, Abdominal Pain, Diarrhea, Constipation, Melena, Hematochezia, Other - Medications/Allergies Allergies/Adverse Reactions: Allergies Allergy/AdvReac Type Severity Reaction Status Date / Time No Known Drug Allergies Allergy Verified 09/09/16 17:33
[2018-04-09 06:06] LABS: Band 4 % (5-11); Eosinophils 1 % (0-10); Hemoglobin 12.5 g/dL (14.0-18.0); Lymphocytes 61 % (21-51); MDiff Complete? YES; Mean Corpuscular HGB CONC 33.1 g/dL (32.0-36.0); Mean Corpuscular Hemoglobin 32.9 pg (27.0-31.0); Mean Corpuscular Volume 99.3 fL (78.0-98.0); Mean Platelet Volume 7.5 fL (7.4-10.4); Monocytes 8 % (0-10); Neutrophil 26 % (42-75); Platelet Count 188 thou/uL (130-400); RBC Distribution Width 12.3 % (11.5-14.5); White Blood Cell (WBC) Count 11.1 thou/uL (4.8-10.8)
[2018-04-09 07:05] LABS: Calcium 8.9 mg/dL (7.8-10.44); Chloride 113 mmol/L (98-107); Potassium 3.6 mmol/L (3.5-5.1); Sodium 142 mmol/L (136-145)
[2018-04-09 07:06] LABS: Glucose 92 mg/dL (83-110)
[2018-04-09 07:07] LABS: Anion Gap 9 mmol/L (10-20); Carbon Dioxide 24 mmol/L (23-31)
[2018-04-09 07:09] LABS: Calc. Creatinine Clearance 54 mL/min (70-130); Estimated GFR-MDRD 46
[2018-04-09 07:10] LABS: BUN (Urea Nitrogen) 12 mg/dL (8.4-25.7)
[2018-04-09] MEDS: Potassium Chloride 20 MEQ TAB PO SCH (08:10)
[2018-04-09] MEDS: Carbidopa/Levodopa 25-100 mg Tablet PO SCH (08:11)
[2018-04-09] MEDS: Bicalutamide 50 MG TAB PO SCH (08:11)
[2018-04-09] MEDS: Donepezil HCl 5 MG TAB PO SCH (08:11)
[2018-04-09] MEDS: Finasteride 5 MG TAB PO SCH (08:11)
[2018-04-09] MEDS: Folic Acid 1 MG TAB PO SCH (08:11)
[2018-04-09] MEDS: Allopurinol 300 MG TAB PO SCH (08:11)
[2018-04-09] MEDS: Famotidine 20 MG TAB PO SCH (08:12)
[2018-04-09] MEDS: Aspirin 325 MG TAB PO SCH (08:12)
[2018-04-09] MEDS: Tamsulosin HCl 0.4 MG CAP PO SCH (08:12)
[2018-04-09] MEDS: Betamethasone 0.1% Cream 15 GM TUBE TOP SCH (08:13)
[2018-04-09 15:17] LABS: Norovirus GI Negative (Negative); Norovirus GII Negative (Negative)
[2018-04-09 15:58] VITALS: BP 136/70; TEMP 97.6
--- NOTE | 2018-04-09 21:07 | DIS ---
DATE OF ADMISSION: 04/04/2018 DATE OF DISCHARGE: 04/09/2018 DISCHARGE DIAGNOSES: As of the following, 1. Syncope. 2. Abdominal pain. 3. Nausea, vomiting, diarrhea. 4. Chronic kidney disease. HOSPITAL COURSE: The patient is a very pleasant 87-year-old male who has a history of on and off katherine rrhea; however, for the past week had significant frequent diarrhea which caused him to have a syncop al episode. The patient at that time was admitted to the hospital. 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 The patient at that time was seen by GI and underwent an upper endoscopy and a colonoscopy. The u pper endoscopy indicated 8-9 mm submucosal nodule in the gastric body which was biopsied. Also, a co lonoscopy was poor prep, but he did have two 5-6 mm transverse colon polyps which were cauterized and removed and 4 polyps 6-15 mm in size were also seen were removed. Hemoclips was used also. He did have some mild to moderate left-sided diverticulosis. GI recommended to continue PPI and also recomm ended a high-fiber diet and follow up with them as an outpatient. This was transcribed to the patien t and the patient's son. They will follow up as an outpatient. Also, I did send a celiac workup jus t in case if this could be related to his celiac disease. Since he had a syncopal episode, he was se en actually by Dr. Shin in the hospital who recommended just to follow up as outpatient. He tho ught that the syncope was most likely secondary to his volume depletion and also ICD was recently int errogated which did not indicate any acute sources. Patient again will be discharged home. He does not want to go to rehabilitation. He will get home health and physical therapy. DISCHARGE MEDICATIONS: As the following, He is going to go back on finasteride 5 mg daily, donepezil 5 mg daily, Protonix 40 mg daily, folic a issac 1 daily, levodopa and carbidopa 1 daily, Lasix 20 mg daily, simvastatin 40 mg at bedtime, sertral ine 50 daily, lisinopril 5 mg daily, Casodex 50 mg daily, allopurinol 300 mg daily, Carvedilol 2.5 b.i.d., aspirin 81 mg daily. PHYSICAL EXAMINATION: VITAL SIGNS: As of the following, temperature 98.1, 80, 18, 94% on room air, 125/72. GENERAL: He is awake, alert, and oriented x3, does not appear in distress. CARDIOVASCULAR: S1, S2 present. No murmurs, rubs, or gallops. ABDOMEN: Soft. Mild tenderness to his left upper quadrant which is mild than before. Bowel sounds are present x2. DISCHARGE INSTRUCTIONS: The patient will be discharged home. He will follow up with GI as outpatien t for his biopsy results and also with Cardiology.
[2018-04-10 15:31] LABS: t-Transglutaminase (tTG) IgA 0.5 EliAU/mL (<7 Negative); t-Transglutaminase (tTG) IgG Less than 0.6 EliAU/mL (<7 Negative)
--- NOTE | 2018-04-13 10:45 | EKG ---
Test Reason : IRREGULAR PULSE Blood Pressure : / mmHG Vent. Rate : 090 BPM Atrial Rate : 088 BPM P-R Int : 000 ms QRS Dur : 166 ms QT Int : 464 ms P-R-T Axes : 000 -67 053 degrees QTc Int : 567 ms AV dual-paced rhythm with frequent ventricular-paced complexes Biventricular pacemaker detected Abnormal ECG Confirmed by IVANIA GOMEZ ([id number]), associate entertainment editor EDI RODAS ([id number]) on 04/13/2018 10:44:33 AM Referred By: Confirmed By:IVANIA GOMEZ
== END 2018-04-09 16:24 | disposition home or self-care (01) | DRG 690 ==
LOC: ERS 17:07 → 2NO 22:51 → T4-B 04-05 22:53
PROVIDERS: ADMIT Hospitalist; ATTEND Hospitalist
PROC: 0DB98ZX Excision of Duodenum, Via Natural or Artificial Opening Endoscopic, Diagnostic (ICD-10-PCS; principal; 2018-04-07)
PROC: 0DB68ZX Excision of Stomach, Via Natural or Artificial Opening Endoscopic, Diagnostic (ICD-10-PCS; 2018-04-07)
PROC: 0DBM8ZX Excision of Descending Colon, Via Natural or Artificial Opening Endoscopic, Diagnostic (ICD-10-PCS; 2018-04-07)
PROC: 0DBL8ZX Excision of Transverse Colon, Via Natural or Artificial Opening Endoscopic, Diagnostic (ICD-10-PCS; 2018-04-07)
PROC: 0W3P8ZZ Control Bleeding in Gastrointestinal Tract, Via Natural or Artificial Opening Endoscopic (ICD-10-PCS; 2018-04-07)
DX: N39.0 Urinary tract infection, site not specified (principal); I13.0 Hypertensive heart and chronic kidney disease with heart failure and stage 1 through stage 4 chronic kidney disease, or unspecified chronic kidney disease; I50.22 Chronic systolic (congestive) heart failure; K52.9 Noninfective gastroenteritis and colitis, unspecified; E11.22 Type 2 diabetes mellitus with diabetic chronic kidney disease; N18.3 Chronic kidney disease, stage 3 (moderate); I50.9 Heart failure, unspecified; E78.5 Hyperlipidemia, unspecified; G20 Parkinson's disease; F32.9 Major depressive disorder, single episode, unspecified; K31.89 Other diseases of stomach and duodenum; K57.30 Diverticulosis of large intestine without perforation or abscess without bleeding; K64.8 Other hemorrhoids; K63.5 Polyp of colon; I25.5 Ischemic cardiomyopathy; D53.9 Nutritional anemia, unspecified; E66.9 Obesity, unspecified; Z68.32 Body mass index [BMI] 32.0-32.9, adult; Z85.46 Personal history of malignant neoplasm of prostate; Z87.891 Personal history of nicotine dependence; Z95.810 Presence of automatic (implantable) cardiac defibrillator; Z90.49 Acquired absence of other specified parts of digestive tract
CPT/HCPCS: 36415; 36416; 70450; 71045; 74177; 80048; 80053; 81003; 81015; 82553; 83516; 83630; 83735; 83880; 83883; 84443; 84484; 85025; 87045; 87046; 87086; 87324; 87449; 87798; 87899; 88305; 88312; 93005; 93306; G8978-GP-CM; G8979-GP-CK; G8987-GO-CL; G8988-GO-CK; J0696; J2001; J2704; J7050; Q0162

== ENCOUNTER 2018-05-03 09:38 | Inpatient (IN) | payer MEDICARE, OTHER ==
[2018-05-03 10:10] LABS: Hemoglobin 14.8 g/dL (14.0-18.0); Mean Corpuscular HGB CONC 32.4 g/dL (32.0-36.0); Mean Corpuscular Volume 98.9 fL (78.0-98.0); Mean Platelet Volume 7.5 fL (7.4-10.4); Platelet Count 202 thou/uL (130-400); RBC Distribution Width 12.2 % (11.5-14.5); Red Blood Cell (RBC) Count 4.61 mill/uL (4.70-6.10); White Blood Cell (WBC) Count 15.5 thou/uL (4.8-10.8)
[2018-05-03 10:29] LABS: Band 10 % (5-11); Eosinophils 1 % (0-10); Lymphocytes 51 % (21-51); MDiff Complete? YES; Monocytes 5 % (0-10); Neutrophil 32 % (42-75); Reactive Lymphocytes 1 % (0-10)
[2018-05-03 10:30] LABS: ALT (SGPT) 24 U/L (8-55); AST (SGOT) 29 U/L (5-34); Albumin 4.3 g/dL (3.4-4.8); Alkaline Phosphatase 79 U/L (40-150); Anion Gap 16 mmol/L (10-20); BUN (Urea Nitrogen) 24 mg/dL (8.4-25.7); Bilirubin, Total 0.7 mg/dL (0.2-1.2); CK (CPK) 37 U/L (30-200); Calc. Creatinine Clearance 0 mL/min (70-130); Calcium 9.8 mg/dL (7.8-10.44); Carbon Dioxide 22 mmol/L (23-31); Chloride 103 mmol/L (98-107); Estimated GFR-MDRD 27; Globulin 3.1 g/dL (2.4-3.5); Glucose 199 mg/dL (83-110); Lipase 199 U/L (8-78); Potassium 3.8 mmol/L (3.5-5.1); Protein, Total 7.4 g/dL (5.8-8.1); Sodium 137 mmol/L (136-145)
[2018-05-03 10:35] LABS: CKMB 0.6 ng/mL (0-6.6); Troponin I 0.011 ng/mL (< 0.028)
--- NOTE | 2018-05-03 11:13 | RAD ---
PORTABLE CHEST 1 VIEW: Date: 05/03/18 HISTORY: 87-year-old male with history of left-sided abdominal pain. Prior diverticulitis. COMPARISON: 04/03/18. FINDINGS: Left ICD. Minimal cardiomegaly. Stable circumscribed opacity over the right mid chest. IMPRESSION: Stable chest. No acute intrathoracic disease. POS: [facility]
--- NOTE | 2018-05-03 11:20 | CT ---
CT HEAD NONCONTRAST: Indication: Altered mental status. FINDINGS: There is mild to moderate global atrophy. No intracranial hemorrhage, mass effect, or midline shift. Compensatory dilatation of the ventricular system is present. There is mild chronic ischemic disease. IMPRESSION: No acute intracranial hemorrhage or mass effect. POS: [facility]
--- NOTE | 2018-05-03 11:38 | CT ---
CT ABDOMEN AND PELVIS NONCONTRAST: History: Right flank pain. Kidney stones. 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 Proximal to midright ureter remains mildly distended to the level of a cluster of calcifications at the pelvi c inlet that is 0.9 cm axial diameter. Within the distal ureter, smaller grouping of calcifications i s also unchanged in appearance. Approximately 0.5 cm axial diameter. Tiny calcifications are now note d in the dependent portion of the urinary bladder which is incompletely distended. The left ureter is decompressed without stone evident. Lack of contrast limits evaluation for other abnormalities. 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 There is atelectasis at the lung base. Small hiatal hernia. Gallbladder is surgically absent. Calc ification throughout the arterial structures. Diverticulosis is again demonstrated. Slightly enlarged periportal and upper retroperitoneal lymph nodes are unchanged. IMPRESSION: 1. 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 A few tiny calcifications are now present within the urinary bladder. The appearanc e is otherwise unchanged. 2. Diverticulosis. 3. Prominent lymph nodes of the upper abdomen are unchanged. POS: [facility]
[2018-05-03] MEDS ORDERED: cefTRIAXone\\ROCEPHIN 2 GM VIAL ONE (11:52)
[2018-05-03 12:07] LABS: Bilirubin Negative (Negative); Blood, Urine Moderate (Negative); Clarity CLOUDY (Clear); Glucose, Urine (Dipstick) Negative (Negative); Leukocyte Moderate (Negative); Nitrite Negative (Negative); Protein, Urine (Dipstick) 30 mg/dL (Neg-Trace); Specific Gravity, Urine 1.013 (1.002-1.036)
[2018-05-03 12:22] LABS: Hyaline Casts/LPF 0-3 HYALINE CAST LPF (0-3 Hyaline); Pathc Cast-AUWi Flag 0.29 (0-2.49); Squamous Epithelial 0-3 HPF (0-3); WBC/HPF 21-50 HPF (0-3)
[2018-05-03 12:24] LABS: Yeast-AUWi Flag 186.6 (0-25.0)
[2018-05-03 12:27] LABS: Bacteria/HPF 3+ HPF (None Seen); Yeast-All Forms None Seen HPF (None Seen)
[2018-05-03 14:54] LABS: Lactic Acid 1.7 mmol/L (0.5-2.2)
[2018-05-03 15:04] LABS: Troponin I 0.015 ng/mL (< 0.028)
--- NOTE | 2018-05-03 16:07 | CON ---
DATE OF CONSULTATION: 05/03/2018 REASON FOR CONSULTATION: Right ureteral stones and urinary tract infection. HISTORY OF PRESENT ILLNESS: The patient is an 87-year-old male who has a history of a known horseshoe kidney and known renal stones who had opted on monitoring; however, he had never done a prior 24-hour urinalysis. He does have a history of passing a stone 20 years ago and he has never had trouble since. He also has a history of prostate cancer and by their report, has had no treatment for it. On prior record, it sounded like he had possible Lupron or antiandrogen therapy. His is on Casodex at this time. [facility] and presumably a PSA was checked and noted to be okay as the family reports no concerns noted at that visit. Normally, he has frequency q.2-3 hours and nocturia x1. He denies any hesitancy , weak stream, incomplete emptying or straining, but he does admit to recent burning. He has no gross hematuria nor discharge. He is already on tamsulosin twice a day and finasteride once a day. Approximately 3 years ago after his gallbladder surgery, he did go into retention and saw my partner, Dr. Dagmar Tejada and then returned to the [facility] for his further care. He has not had further retention episodes and he stayed on those medicines. He had a history of urinary tract infection in 2014 and they report another one last month; however, they were only with WBCs with rare bacteria and the culture was negative. I am not sufficiently concerned for infection recently, but it does look like he has an infection currently based on his microanalysis from this admission. 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 PAST SURGICAL HISTORY: Includes gallbladder, tonsils and a pacemaker. MEDICATIONS: Include many including Eliquis 2.5 twice a day. He is not taking an aspirin in addition to the above-mentioned finasteride and tamsulosin. He is also on fluocinonide for eczema; carvedilol 6.25 mg half a tablet twice a day ; cholecalciferol; allopurinol 300 mg daily; stool softener, which we reviewed he should not be on because he has chronic diarrhea; bicalutamide 50 mg daily; simvastatin 80; lisinopril 10; sertraline 50; furosemide 20; carbidopa/levodopa daily; pantoprazole 40 daily; folic acid and donepezil 10 mg half daily. ALLERGIES: None. SOCIAL HISTORY: He has a 1 pack per day history for 5-10 years in the past, but quit 30-40 years ago. He drinks wine rarely at 2 ounces at most. Otherwise , he does drink or use other drugs. He lives at home. REVIEW OF SYSTEMS: Revealed that he was admitted last month with diarrhea and had both endoscopy and colonoscopy, which showed polyps in both, but no cancer. He is continued with the diarrhea and nothing is improved from that. In fact , upon admission, he had had 2 very large movements and then passed out, which is why he presented this day and last month, he had mental status changes with the diarrhea. Currently, his pain is better than when he came in, but it was described as a punch in the belly and he has his back pain, which is chronic due 4 disk problems, but he has no new back pain, no chest pain, no shortness of breath and not coughing up anything. FAMILY HISTORY: Significant for mother dying at 85 of heart disease. She also had a history of colon cancer. Father at 92 of heart disease. He also had Parkinson's. PHYSICAL EXAMINATION: GENERAL: He is comfortable in the bed. He is alert and oriented. VITAL SIGNS: His blood pressure was 143/85, heart rate in the 70s, satting well on room air. CARDIOVASCULAR: Regular rate and rhythm. No obvious murmurs, gallops or rubs. LUNGS: Clear to auscultation bilaterally. ABDOMEN: Soft, nondistended, mild tenderness in the left mid to upper quadrant. No CVA tenderness. EXTREMITIES: No significant lower extremity edema. GENITOURINARY: Testes were descended bilaterally without masses. Phallus was uncircumcised with phimosis. I was able to see the glans easily with the meatus , but otherwise unable to retract it beyond that. LABORATORY DATA: White count of 15.5. BUN and creatinine are 24 and 2.30 with his baseline ranging between 1.5 and 2 and lactic acid of 5. A urinalysis from today showed 21-50 wbc's, 4-6 rbc's, 3+ bacteria and 0-3 squamous cells. Urinalysis from last month showed 7-10 wbc's, 4-6 RBCs, rare bacteria and 4-6 squamous cells with a negative culture. He had another negative culture in 2017 from a urine standpoint and has not had a positive culture in the urine since 2014, which was Klebsiella pneumoniae. A PSA from 12/2013 is less than 0.1. I do not have any since then. IMAGING: CT scan from this day 05/03/2018 without contrast reveals a horseshoe kidney, full of stones in both units and the isthmus of it. He also has right proximal 2.5 cm x 6 mm ureteral stone and a right distal 1.5 cm x 3 mm. Both appear to be nonobstructing as there is no significant hydronephrosis on this side. No hydroureter. There is a right simple cyst. There is small debris or stone in the bladder with an enlarged prostate. CT scan from 04/03/2018 with contrast was also reviewed and showed both right ureteral stones were present at that time with the left distal ones slightly smaller than it is today. It actually appeared that there was more distention of the renal pelvis on that scan than on the most recent one. ASSESSMENT AND PLAN: We have an 87-year-old gentleman, admitted after passing out after 2 large diarrhea movements. He has urinary tract infection and bilateral stones with right ureteral stones without any obvious obstruction at this time, which are incidental and having been present for some time. He also has benign prostatic hyperplasia, already on maximum meds with incomplete emptying as well as phimosis as the reason for urinary tract infections. Finally, he also has a history of prostate cancer and is on antiandrogen therapy with bicalutamide at this time as well as maximum benign prostatic hyperplasia therapy with the finasteride and tamsulosin twice a day. He should continue all these medications. Since he is already significantly improving just with hydration and the dose of antibiotics, I did not think that an urgent stent is indicated at this time. We reviewed how a stent could be placed, but then ultimately treating his ureteral stones will take 2, if not, closer to 4 hours of surgical intervention. His anatomy is not amenable to percutaneous nephrostomy tube and I would not attempt to or expect that anyone would be able to clear his kidney stones and would rather only address the ureteral if and when necessary. We also reviewed [employer] laser vaporization of prostate and his phimosis with the possible need for circumcision in the future as well. For now, unless he spikes a temperature or has concern for blood pressure issues , I would allow him to stay without an indwelling catheter, but ensure he is emptying adequately by checking a bladder scan and the postvoid residual. Continue IV antibiotics and hydration at this time and monitor. I have also asked the Emergency Department to consult GI based on his chronic diarrhea and see if there is anything that can be beneficial since I think this was more of an instigating cause for his current hospitalization. ESTHELA
[2018-05-03 17:37] VITALS: BMI 31.9
[2018-05-03 17:59] LABS: Troponin I Less than 0.010 ng/mL (< 0.028)
[2018-05-03] MEDS ORDERED: Calcium Carbonate 500 MG ChewTAB PO PRN (19:10)
[2018-05-03] MEDS ORDERED: Senokot S 8.6-50 MG TAB PO PRN ×2 (19:10→19:14)
[2018-05-03] MEDS ORDERED: Bisacodyl 5 MG TAB PO PRN (19:10)
[2018-05-03] MEDS ORDERED: Ondansetron PF 4 MG/2 ML Vial IVP PRN (19:10)
[2018-05-03] MEDS ORDERED: Acetaminophen 325 MG TAB PO PRN (19:10)
[2018-05-03] MEDS ORDERED: HYDROcodone/Acetaminophen 5/325 mg Tablet PO PRN (19:10)
[2018-05-03] MEDS ORDERED: Betamethasone 0.1% Cream 15 GM TUBE TOP PRN (19:14)
[2018-05-03 20:38] LABS: Troponin I 0.015 ng/mL (< 0.028)
[2018-05-03] MEDS ORDERED: KETOCONAZOLE TOP SCH (21:00)
[2018-05-03] MEDS: Sodium Chloride 0.9% 1,000 ML IV SCH (21:03)
[2018-05-03] MEDS: Apixaban 2.5 MG TAB PO SCH (21:38)
[2018-05-03] MEDS: Atorvastatin Calcium 20 MG TAB PO SCH (21:38)
[2018-05-03] MEDS: Montelukast Sodium 10 mg Tablet PO SCH (21:39)
[2018-05-03] MEDS: Ketoconazole 2% Cream 15 gm Tube TOP SCH (21:41)
[2018-05-03] MEDS: Tamsulosin HCl 0.4 MG CAP PO SCH (21:41)
[2018-05-03] MEDS: Famotidine/PF 20 mg/2ml Vial SLOW IVP SCH (21:45)
[2018-05-03] MEDS: metroNIDAZOLE 500 MG in Premix Bag 1 BAG IVPB SCH (23:00)
--- NOTE | 2018-05-04 01:08 | PDOC.EVN ---
Event Note - Event Note Event Note: h&p [id number]
[2018-05-04] MEDS ORDERED: Melatonin 3 MG TAB PO SCH (02:30)
[2018-05-04] MEDS: metroNIDAZOLE 500 MG in Premix Bag 1 BAG IVPB SCH ×3 (06:08→21:49)
[2018-05-04 06:11] LABS: Anion Gap 12 mmol/L (10-20); BUN (Urea Nitrogen) 25 mg/dL (8.4-25.7); Calc. Creatinine Clearance 43 mL/min (70-130); Calcium 8.7 mg/dL (7.8-10.44); Carbon Dioxide 20 mmol/L (23-31); Chloride 109 mmol/L (98-107); Estimated GFR-MDRD 36; Glucose 94 mg/dL (83-110); Sodium 137 mmol/L (136-145)
[2018-05-04 06:12] LABS: Band 1 % (5-11); Eosinophils 2 % (0-10); Lymphocytes 46 % (21-51); MDiff Complete? YES; Mean Corpuscular HGB CONC 32.8 g/dL (32.0-36.0); Mean Corpuscular Hemoglobin 32.5 pg (27.0-31.0); Mean Platelet Volume 7.9 fL (7.4-10.4); Monocytes 8 % (0-10); Neutrophil 33 % (42-75); Platelet Count 172 thou/uL (130-400); RBC Distribution Width 12.1 % (11.5-14.5); Reactive Lymphocytes 10 % (0-10); Red Blood Cell (RBC) Count 3.71 mill/uL (4.70-6.10); White Blood Cell (WBC) Count 13.7 thou/uL (4.8-10.8)
[2018-05-04 08:57] LABS: Hemoglobin 12.3 g/dL (14.0-18.0); Platelet Count 170 thou/uL (130-400)
[2018-05-04] MEDS ORDERED: FINASTERIDE 5 MG PO SCH (09:00)
[2018-05-04] MEDS ORDERED: Lisinopril 5 MG TAB PO SCH (09:00)
[2018-05-04] MEDS ORDERED: Furosemide 20 MG TAB PO SCH (09:00)
[2018-05-04] MEDS ORDERED: Bicalutamide 50 MG TAB PO SCH (09:00)
[2018-05-04] MEDS: Carvedilol 3.125 MG TAB PO SCH (09:41)
[2018-05-04] MEDS: Bicalutamide 50 MG TAB PO SCH (09:41)
[2018-05-04] MEDS: Allopurinol 300 MG TAB PO SCH (09:44)
[2018-05-04] MEDS: Carbidopa/Levodopa 25-100 mg Tablet PO SCH (09:44)
[2018-05-04] MEDS: Tamsulosin HCl 0.4 MG CAP PO SCH ×2 (09:45→21:49)
[2018-05-04] MEDS: Folic Acid 1 MG TAB PO SCH (09:45)
[2018-05-04] MEDS: Donepezil HCl 5 MG TAB PO SCH (09:45)
[2018-05-04] MEDS: Finasteride 5 MG TAB PO SCH (09:46)
[2018-05-04] MEDS: Ketoconazole 2% Cream 15 gm Tube TOP SCH ×2 (09:46→21:48)
[2018-05-04] MEDS: Betamethasone Val 0.1% OINT 15 GM TUBE TOP SCH (09:49)
--- NOTE | 2018-05-04 12:23 | PDOC.PN ---
- Subjective Encounter Start Date: 05/04/18 Encounter Start Time: 09:50 Subjective: no sob or nausea -: is sitting in chair - Objective Resuscitation Status: Resuscitation Status FULL:Full Resuscitation MAR Reviewed: Yes Vital Signs & Weight: Vital Signs (12 hours) Temp Pulse Resp BP BP BP Pulse Ox 05/04/18 11:49 98.1 F 66 14 117/66 100 05/04/18 09:48 68 05/04/18 09:34 97.7 F 68 18 119/56 L 94 L 05/04/18 03:05 99.0 F 81 16 72/51 L 105/56 L 97 Weight Weight 224 lb 1.6 oz I&O: 05/03/18 05/04/18 05/05/18 06:59 06:59 06:59 Intake Total 1160 Output Total 210 Balance 950 Result Diagrams: 05/04/18 08:29 05/04/18 08:29 Phys Exam - Physical Examination HEENT: PERRLA, moist MMs Neck: no JVD, supple Respiratory: no wheezing, no rales Cardiovascular: RRR, no significant murmur Gastrointestinal: soft, no distention, positive bowel sounds Musculoskeletal: pulses present, edema present Neurological: non-focal, moves all 4 limbs Psychiatric: normal affect, A&O x 3 Dx/Plan (1) Abdominal pain Code(s): R10.9 - UNSPECIFIED ABDOMINAL PAIN Status: Acute Qualifiers: (2) UTI (urinary tract infection) Status: Acute Qualifiers: Urinary tract infection type: acute cystitis Hematuria presence: without hematuria Qualified Code(s): N30.00 - Acute cystitis without hematuria (3) Asthma Code(s): J45.909 - UNSPECIFIED ASTHMA, UNCOMPLICATED Status: Chronic Qualifiers: Asthma severity: mild Asthma persistence: intermittent Asthma complication type: uncomplicated Qualified Code(s): J45.20 - Mild intermittent asthma, uncomplicated (4) CKD (chronic kidney disease) stage 3, GFR 30-59 ml/min Code(s): N18.3 - CHRONIC KIDNEY DISEASE, STAGE 3 (MODERATE) Status: Chronic (5) Chronic systolic congestive heart failure, NYHA class 3 Code(s): I50.22 - CHRONIC SYSTOLIC (CONGESTIVE) HEART FAILURE Status: Chronic Comment: EF- 30-35% in 2017 (6) Coronary artery disease Code(s): I25.10 - ATHSCL HEART DISEASE OF [place] CORONARY ARTERY W/O ANG PCTRS Status: Chronic Qualifiers: Associated angina: without angina (7) DM type 2 (diabetes mellitus, type 2) Status: Chronic Qualifiers: Diabetes mellitus [facility] insulin use: without terminal operator use Diabetes mellitus complication status: with unspecified complications Qualified Code(s) : E11.8 - Type 2 diabetes mellitus with unspecified complications (8) Dyslipidemia Code(s): E78.5 - HYPERLIPIDEMIA, UNSPECIFIED Status: Chronic (9) H/O prostate cancer Code(s): Z85.46 - PERSONAL HISTORY OF MALIGNANT NEOPLASM OF PROSTATE Status: Chronic (10) HTN (hypertension) Code(s): I10 - ESSENTIAL (PRIMARY) HYPERTENSION Status: Chronic Qualifiers: Hypertension type: essential hypertension (11) Macrocytic anemia Code(s): D53.9 - NUTRITIONAL ANEMIA, UNSPECIFIED Status: Chronic (12) Nephrolithiasis Status: Chronic Comment: has horse shoe kidney with multiple stone, partial obstr on right side (13) Obesity (BMI 30-39.9) Code(s): E66.9 - OBESITY, UNSPECIFIED Status: Chronic (14) Parkinson disease Code(s): G20 - PARKINSON'S DISEASE Status: Chronic - Plan is on ceftriaxone, cipro and flagyl, jackson cultures are -ve -: will hold eliquis if urology is planning on stenting right side -: continue coreg, zocor, levadopa, casodez, flomax and finasteride -: hold lasix and lisinopril due to low bp -: wbc is 13k, creatinine around 1.8, mild met acidosis * . Review of Systems - Medications/Allergies Allergies/Adverse Reactions: Allergies Allergy/AdvReac Type Severity Reaction Status Date / Time No Known Drug Allergies Allergy Verified 09/09/16 17:33 Medications: Current Medications Acetaminophen (Tylenol) 650 mg PO Q4H PRN PRN Reason: Headache/Fever/Mild Pain (1-3) Hydrocodone Bitart/Acetaminophen ([place] 5/325) 1 tab PO Q4H PRN PRN Reason: Moderate Pain (4-6) Allopurinol (Zyloprim) 300 mg PO DAILY [facility] Last Admin: 05/04/18 09:44 Dose: 300 mg Apixaban (Eliquis) 2.5 mg PO BID [facility] Last Admin: 05/03/18 21:38 Dose: 2.5 mg Atorvastatin Calcium (Lipitor) 20 mg PO HS [facility] Last Admin: 05/03/18 21:38 Dose: 20 mg Betamethasone Valerate (Valisone 0.1% Cream) 0 gm TOP DAILYPRN PRN PRN Reason: eczema Betamethasone Valerate (Valisone 0.1% Ointment) 0 gm TOP DAILY [facility] Last Admin: 05/04/18 09:49 Dose: 1 applic Bicalutamide (Casodex) 50 mg PO DAILY [facility] Last Admin: 05/04/18 09:41 Dose: 50 mg Bisacodyl (Dulcolax) 10 mg PO DAILYPRN PRN PRN Reason: Constipation Calcium Carbonate (Tums) 1,000 mg PO Q4H PRN PRN Reason: Heartburn or Indigestion Carbidopa/Levodopa (Sinemet 25-100) 1 tab PO DAILY [facility] Last Admin: 05/04/18 09:44 Dose: 1 tab Carvedilol (Coreg) 3.125 mg PO QA-[facility] Last Admin: 05/04/18 09:41 Dose: 3.125 mg Cholecalciferol (Vitamin D3) 500 units PO DAILY [facility] Last Admin: 05/04/18 09:44 Dose: 500 units Donepezil HCl (Aricept) 5 mg PO DAILY [facility] Last Admin: 05/04/18 09:45 Dose: 5 mg Famotidine (Pepcid) 20 mg SLOW IVP Q24HR [facility] Last Admin: 05/03/18 21:45 Dose: 20 mg Finasteride (Proscar) 5 mg PO DAILY [facility] Last Admin: 05/04/18 09:46 Dose: 5 mg Folic Acid (Folvite) 1 mg PO DAILY [facility] Last Admin: 05/04/18 09:45 Dose: 1 mg Sodium Chloride (Normal Saline 0.9%) 1,000 mls @ 100 mls/hr IV .Q10H [facility] Last Admin: 05/03/18 21:03 Dose: 1,000 mls Ciprofloxacin/Dextrose 400 mg/ (Device) 200 mls @ 200 mls/hr IVPB Q12HR [facility] Last Admin: 05/04/18 11:41 Dose: 200 mls Metronidazole 500 mg/ Device 100 mls @ 100 mls/hr IVPB Q8HR [facility] Last Admin: 05/04/18 06:08 Dose: 100 mls Ceftriaxone Sodium 2 gm/ (Sodium Chloride) 100 mls @ 200 mls/hr IVPB Q24HR [facility] Ketoconazole (Nizoral 2% Cream) 0 gm TOP BID [facility] Last Admin: 05/04/18 09:46 Dose: 1 applic Montelukast Sodium (Singulair) 10 mg PO QPM [facility] Last Admin: 05/03/18 21:39 Dose: 10 mg Ondansetron HCl (Zofran) 4 mg IVP Q6H PRN PRN Reason: Nausea/Vomiting Pantoprazole Sodium (Protonix) 40 mg PO DAILY [facility] Last Admin: 05/04/18 09:45 Dose: 40 mg Senna/Docusate Sodium (Senokot S) 2 tab PO BIDPRN PRN PRN Reason: Constipation Sertraline HCl (Zoloft) 50 mg PO DAILY [facility] Last Admin: 05/04/18 09:45 Dose: 50 mg Tamsulosin HCl (Flomax) 0.4 mg PO BID [facility] Last Admin: 05/04/18 09:45 Dose: 0.4 mg
--- NOTE | 2018-05-04 12:32 | PRG ---
DATE OF SERVICE: 05/04/2018 SUBJECTIVE: The patient did well overnight. He still has some left upper quadrant discomfort, he would not describe it as a pain. He has had no further diarrhea. He has had no trouble urinating and a bladder scan showed that he had nothing remaining. OBJECTIVE: VITAL SIGNS: Vitals have been stable with a T-max of 99.0, blood pressure 119/ 56, heart rate 68, satting 94%-97% on room air. GENITOURINARY: Output is listed as only 210 overnight with another approximately 100 mL of yellow urine at the bedside in the urinal. ABDOMEN: Soft, nondistended, with decreased tenderness in left upper quadrant compared to yesterday's exam. He has no suprapubic tenderness or fullness. He has no costovertebral angle tenderness. LABORATORY DATA: His H&H dropped with hydration, but has remained stable and now is 12.3 and 37.8. His white count has come down to 13.7. His creatinine is improved to 1.87. His PSA was 0.05. I contacted Cardiology about him. Right now, there is no emergent or urgent reason for urologic intervention; however, he has multiple issues that may require and/or benefit from intervention in the near future. If we do have to treat the ureteral stones and that could be a 2-4 hour procedure and I would first place a stent and allow that to dilate the ureter before attempting to go treat them whether I had to place a stent urgently or electively. He also has significant BPH with possible debris in the bladder as a source for his infection as well as phimosis, so a [employer] laser vaporization of the prostate and/or a circumcision could be something that are beneficial in the near future. ASSESSMENT: We have an 87-year-old gentleman with multiple issues, nothing urgent or emergent at this time, but certainly could benefit from urologic intervention for circumcision and possibly for his stones and prostate. We will have Cardiology see him in this hospital stay and continue to monitor. ESTHELA
[2018-05-04] MEDS: cefTRIAXone\\ROCEPHIN 2 GM in Sodium Chloride 0.9% 100 ML IVPB SCH (13:50)
[2018-05-04] MEDS: Sodium Chloride 0.9% 1,000 ML IV SCH ×2 (16:10→18:22)
[2018-05-04] MEDS: Apixaban 2.5 MG TAB PO SCH (18:03)
[2018-05-04] MEDS: Atorvastatin Calcium 20 MG TAB PO SCH (21:48)
[2018-05-04] MEDS: Montelukast Sodium 10 mg Tablet PO SCH (21:49)
[2018-05-04] MEDS: Famotidine/PF 20 mg/2ml Vial SLOW IVP SCH (21:52)
--- NOTE | 2018-05-04 23:08 | CON ---
DATE OF CONSULT: 05/04/18 HISTORY OF PRESENT ILLNESS: Patient is an unfortunate 87-year-old gentleman who presented with renal stones and is being evaluated for possible need for surgery. The patient has a long history of coronary artery disease. He underwent a cardiac catheterization approximately a year and half ago. He was found to have a 50% left main lesion and diffuse coronary artery disease. The patient was felt to be a prohibitive risk for undergoing surgery. The patient has been on medical therapy. He denies having any chest pain. He reports occasional palpitations. The patient was admitted with sepsis and urinary tract infection. PAST MEDICAL HISTORY: 1. Coronary artery disease. 2. Severe cardiomyopathy. 3. Parkinson disease. 4. Chronic renal failure. 5. Dyslipidemia. 6. Depression. PAST SURGICAL HISTORY: Cholecystectomy, tonsillectomy. SOCIAL HISTORY: Nonsmoker. MEDICATIONS: See nursing list. ALLERGIES: None. PHYSICAL EXAMINATION: GENERAL: This is an obese gentleman in no acute distress. VITAL SIGNS: Blood pressure 125/68. NECK: No jugular venous distention. LUNGS: Clear to auscultation. HEART: Regular rate and rhythm, normal S1, S2 with no murmurs. ABDOMEN: Distended. EXTREMITIES: Showed trace edema. VASCULAR: Radial pulses 2+. LABORATORY RESULTS: Sodium 137, potassium 4.0, chloride 109, bicarbonate 20, BUN 25, creatinine 1.8. White blood cell count 13.7, hemoglobin 12.0, hematocrit 36.7, his platelets were 172. His EKG reveals him to have dual chamber pacemaker. IMPRESSION: 1. Urosepsis with ureteral stones. 2. History of severe coronary artery disease with a 50% left main lesion. 3. Ischemic cardiomyopathy. 4. History of AICD placement. 5. Renal insufficiency. 6. Parkinson's disease. This gentleman may need to undergo urologic surgery. The patient has a left main lesion, but did not undergo surgery due to being a prohibitive risk. If the patient should need to undergo noncardiac surgery, he is certainly at increased risk of cardiac complications. He does, however, appear to be at acceptable risk since he has had no angina. From a cardiac standpoint,I would monitor the patient very closely perioperatively. Would avoid marked fluctuations in his blood pressure and control the patient's heart rate perioperatively. We will follow this patient with you through his hospitalization. CC: Dr. Juan Luis PROCTOR
[2018-05-05] MEDS: Sodium Chloride 0.9% 1,000 ML IV SCH ×2 (02:48→05:52)
[2018-05-05] MEDS: metroNIDAZOLE 500 MG in Premix Bag 1 BAG IVPB SCH (05:52)
[2018-05-05 05:59] LABS: Band 6 % (5-11); Hemoglobin 11.6 g/dL (14.0-18.0); Lymphocytes 59 % (21-51); MDiff Complete? YES; Mean Corpuscular HGB CONC 32.3 g/dL (32.0-36.0); Mean Corpuscular Hemoglobin 32.3 pg (27.0-31.0); Mean Corpuscular Volume 99.9 fL (78.0-98.0); Mean Platelet Volume 7.8 fL (7.4-10.4); Monocytes 7 % (0-10); Neutrophil 28 % (42-75); Platelet Count 161 thou/uL (130-400); RBC Distribution Width 12.4 % (11.5-14.5); Red Blood Cell (RBC) Count 3.59 mill/uL (4.70-6.10); White Blood Cell (WBC) Count 10.2 thou/uL (4.8-10.8)
[2018-05-05 06:43] LABS: Chloride 113 mmol/L (98-107); Potassium 3.7 mmol/L (3.5-5.1); Sodium 141 mmol/L (136-145)
[2018-05-05 06:44] LABS: Calcium 8.9 mg/dL (7.8-10.44); Glucose 115 mg/dL (83-110)
[2018-05-05 06:45] LABS: Anion Gap 10 mmol/L (10-20); Carbon Dioxide 22 mmol/L (23-31)
[2018-05-05 06:47] LABS: Calc. Creatinine Clearance 48 mL/min (70-130); Estimated GFR-MDRD 40
[2018-05-05 06:48] LABS: BUN (Urea Nitrogen) 21 mg/dL (8.4-25.7)
[2018-05-05] MEDS: Carvedilol 3.125 MG TAB PO SCH (09:56)
[2018-05-05] MEDS: Finasteride 5 MG TAB PO SCH (09:56)
[2018-05-05] MEDS: Folic Acid 1 MG TAB PO SCH (09:57)
[2018-05-05] MEDS: Tamsulosin HCl 0.4 MG CAP PO SCH ×2 (09:57→20:21)
[2018-05-05] MEDS: Donepezil HCl 5 MG TAB PO SCH (09:57)
[2018-05-05] MEDS: Bicalutamide 50 MG TAB PO SCH (09:57)
[2018-05-05] MEDS: Carbidopa/Levodopa 25-100 mg Tablet PO SCH (09:57)
[2018-05-05] MEDS: Allopurinol 300 MG TAB PO SCH (09:58)
[2018-05-05] MEDS: Ketoconazole 2% Cream 15 gm Tube TOP SCH ×2 (09:58→20:21)
[2018-05-05] MEDS: Betamethasone Val 0.1% OINT 15 GM TUBE TOP SCH (09:59)
[2018-05-05] MEDS ORDERED: Apixaban 2.5 MG TAB PO SCH (10:00)
--- NOTE | 2018-05-05 10:15 | PDOC.PN ---
- Subjective Encounter Start Date: 05/05/18 Encounter Start Time: 09:00 Subjective: no abd pain or nausea -: no sob or chest pain - Objective Resuscitation Status: Resuscitation Status FULL:Full Resuscitation MAR Reviewed: Yes Vital Signs & Weight: Vital Signs (12 hours) Temp Pulse Resp BP Pulse Ox 05/05/18 09:45 97.8 F 63 15 136/62 98 05/05/18 03:30 97.9 F 64 19 145/65 H 97 Weight Weight 224 lb 1.6 oz I&O: 05/04/18 05/05/18 05/06/18 06:59 06:59 06:59 Intake Total 1160 880 Output Total 210 850 Balance 950 30 Result Diagrams: 05/05/18 04:58 05/05/18 06:10 Additional Labs: Accuchecks 05/05/18 05/04/18 05/04/18 05:55 20:14 16:52 POC Glucose 116 H 135 H 96 05/04/18 10:55 POC Glucose 117 H Phys Exam - Physical Examination HEENT: PERRLA, moist MMs Neck: no JVD, supple Respiratory: no wheezing, no rales Cardiovascular: RRR, no significant murmur Gastrointestinal: soft, non-tender, positive bowel sounds Musculoskeletal: no edema, pulses present Neurological: non-focal, moves all 4 limbs Psychiatric: normal affect, A&O x 3 Dx/Plan (1) Abdominal pain Code(s): R10.9 - UNSPECIFIED ABDOMINAL PAIN Status: Resolved Qualifiers: (2) UTI (urinary tract infection) Status: Acute Qualifiers: Urinary tract infection type: acute cystitis Hematuria presence: without hematuria Qualified Code(s): N30.00 - Acute cystitis without hematuria (3) Asthma Code(s): J45.909 - UNSPECIFIED ASTHMA, UNCOMPLICATED Status: Chronic Qualifiers: Asthma severity: mild Asthma persistence: intermittent Asthma complication type: uncomplicated Qualified Code(s): J45.20 - Mild intermittent asthma, uncomplicated (4) CKD (chronic kidney disease) stage 3, GFR 30-59 ml/min Code(s): N18.3 - CHRONIC KIDNEY DISEASE, STAGE 3 (MODERATE) Status: Chronic (5) Chronic systolic congestive heart failure, NYHA class 3 Code(s): I50.22 - CHRONIC SYSTOLIC (CONGESTIVE) HEART FAILURE Status: Chronic Comment: EF- 30-35% in 2017 (6) Coronary artery disease Code(s): I25.10 - ATHSCL HEART DISEASE OF [place] CORONARY ARTERY W/O ANG PCTRS Status: Chronic Qualifiers: Associated angina: without angina (7) DM type 2 (diabetes mellitus, type 2) Status: Chronic Qualifiers: Diabetes mellitus belt cutter insulin use: without belt cutter use Diabetes mellitus complication status: with unspecified complications Qualified Code(s) : E11.8 - Type 2 diabetes mellitus with unspecified complications (8) Dyslipidemia Code(s): E78.5 - HYPERLIPIDEMIA, UNSPECIFIED Status: Chronic (9) H/O prostate cancer Code(s): Z85.46 - PERSONAL HISTORY OF MALIGNANT NEOPLASM OF PROSTATE Status: Chronic (10) HTN (hypertension) Code(s): I10 - ESSENTIAL (PRIMARY) HYPERTENSION Status: Chronic Qualifiers: Hypertension type: essential hypertension (11) Macrocytic anemia Code(s): D53.9 - NUTRITIONAL ANEMIA, UNSPECIFIED Status: Chronic (12) Nephrolithiasis Status: Chronic Comment: has horse shoe kidney with multiple stone, partial obstr on right side (13) Obesity (BMI 30-39.9) Code(s): E66.9 - OBESITY, UNSPECIFIED Status: Chronic (14) Parkinson disease Code(s): G20 - PARKINSON'S DISEASE Status: Chronic - Plan is on ceftriaxone and cipro, wbc down to 10k -: blood and urine cultures are -ve -: further w/u per , may tx to med if ok with [place] -: continue coreg, levodopa, casodex, finasteride, zocor -: may restart eliquis if no procedures are planned by urology * . Review of Systems - Medications/Allergies Allergies/Adverse Reactions: Allergies Allergy/AdvReac Type Severity Reaction Status Date / Time No Known Drug Allergies Allergy Verified 09/09/16 17:33 Medications: Current Medications Acetaminophen (Tylenol) 650 mg PO Q4H PRN PRN Reason: Headache/Fever/Mild Pain (1-3) Hydrocodone Bitart/Acetaminophen ([place] 5/325) 1 tab PO Q4H PRN PRN Reason: Moderate Pain (4-6) Allopurinol (Zyloprim) 300 mg PO DAILY [facility] Last Admin: 05/05/18 09:58 Dose: 300 mg Apixaban (Eliquis) 2.5 mg PO NOW [facility] Stop: 05/05/18 12:00 Last Admin: 05/05/18 09:59 Dose: 2.5 mg Atorvastatin Calcium (Lipitor) 20 mg PO HS [facility] Last Admin: 05/04/18 21:48 Dose: 20 mg Betamethasone Valerate (Valisone 0.1% Cream) 0 gm TOP DAILYPRN PRN PRN Reason: eczema Betamethasone Valerate (Valisone 0.1% Ointment) 0 gm TOP DAILY [facility] Last Admin: 05/05/18 09:59 Dose: 1 applic Bicalutamide (Casodex) 50 mg PO DAILY [facility] Last Admin: 05/05/18 09:57 Dose: 50 mg Bisacodyl (Dulcolax) 10 mg PO DAILYPRN PRN PRN Reason: Constipation Calcium Carbonate (Tums) 1,000 mg PO Q4H PRN PRN Reason: Heartburn or Indigestion Carbidopa/Levodopa (Sinemet 25-100) 1 tab PO DAILY [facility] Last Admin: 05/05/18 09:57 Dose: 1 tab Carvedilol (Coreg) 3.125 mg PO QAM[facility] Last Admin: 05/05/18 09:56 Dose: 3.125 mg Cholecalciferol (Vitamin D3) 500 units PO DAILY [facility] Last Admin: 05/05/18 09:57 Dose: 500 units Donepezil HCl (Aricept) 5 mg PO DAILY [facility] Last Admin: 05/05/18 09:57 Dose: 5 mg Famotidine (Pepcid) 20 mg SLOW IVP Q24HR [facility] Last Admin: 05/04/18 21:52 Dose: 20 mg Finasteride (Proscar) 5 mg PO DAILY [facility] Last Admin: 05/05/18 09:56 Dose: 5 mg Folic Acid (Folvite) 1 mg PO DAILY [facility] Last Admin: 05/05/18 09:57 Dose: 1 mg Sodium Chloride (Normal Saline 0.9%) 1,000 mls @ 100 mls/hr IV .Q10H [facility] Last Admin: 05/05/18 05:52 Dose: 1,000 mls Ciprofloxacin/Dextrose 400 mg/ (Device) 200 mls @ 200 mls/hr IVPB Q12HR [facility] Last Admin: 05/05/18 09:58 Dose: 200 mls Metronidazole 500 mg/ Device 100 mls @ 100 mls/hr IVPB Q8HR [facility] Last Admin: 05/05/18 05:52 Dose: 100 mls Ceftriaxone Sodium 2 gm/ (Sodium Chloride) 100 mls @ 200 mls/hr IVPB Q24HR [facility] Last Admin: 05/04/18 13:50 Dose: 100 mls Ketoconazole (Nizoral 2% Cream) 0 gm TOP BID [facility] Last Admin: 05/05/18 09:58 Dose: 1 applic Montelukast Sodium (Singulair) 10 mg PO QPM [facility] Last Admin: 05/04/18 21:49 Dose: 10 mg Ondansetron HCl (Zofran) 4 mg IVP Q6H PRN PRN Reason: Nausea/Vomiting Pantoprazole Sodium (Protonix) 40 mg PO DAILY [facility] Last Admin: 05/05/18 09:57 Dose: 40 mg Senna/Docusate Sodium (Senokot S) 2 tab PO BIDPRN PRN PRN Reason: Constipation Sertraline HCl (Zoloft) 50 mg PO DAILY [facility] Last Admin: 05/05/18 09:57 Dose: 50 mg Tamsulosin HCl (Flomax) 0.4 mg PO BID [facility] Last Admin: 05/05/18 09:57 Dose: 0.4 mg
--- NOTE | 2018-05-05 10:37 | PRG ---
DATE OF SERVICE: 05/05/2018 SUBJECTIVE: The patient has done well overnight. He has no further abdominal pain. He has had no further bowel movements. However, GI has not come to see him and I suspect this is because it never got input as a consult. I'll put this in. I greatly appreciate Cardiology's input and I reviewed this with the patient and his who was on speaker phone. Given the concern that he has significant cardiovascular disease that is too risky to even intervene on--this makes any noncardiac surgery very high risk from a cardiac standpoint. I do not think intervention for his ureteral stones is appropriate at this time, based on his significant cardiac risk. The question will be, if and when it does become an acute concern for obstruction whether or not to pursue a stent at that time--because the stent is only temporary and ultimately a much longer surgery would be required in order to remove the stent. Since he did come in with infection of the urine, and he has phimosis as well as concern for possibly tiny stones in the bladder, if not debris, I do think it would be worth doing a circumcision without general anesthesia and irrigating his bladder at that time. We reviewed this in detail today. OBJECTIVE: He has been afebrile with T-max 98.4. Vitals have been stable and his heart rate in the 60s-70s and blood pressure 136/62 and satting 98% on room air. LABORATORY VALUES: Revealed a white count of 10.2, H and H of 11.6 and 35.9. ASSESSMENT: We have an 87-year-old male admitted with what is most likely diverticulitis, which is now much improved, but he also had a urinary tract infection and ureteral stones without any obvious obstruction that had been present for some time. He also has BPH, bladder debris if not small stones, and prostate cancer. I would plan for circumcision and bladder irrigation Sunday morning. I reviewed this with the nurse, and therefore, I am giving him a dose of Eliquis now and we will hold it thereafter in anticipation of surgery for Sunday under local anesthesia with IV sedation. Continue his current antibiotics, as the culture is unlikely to grow anything, as it has the colony count at this time. His abx coverage best for diverticulitis will cover his urine as well. ESTHELA
[2018-05-05] MEDS: cefTRIAXone\\ROCEPHIN 2 GM in Sodium Chloride 0.9% 100 ML IVPB SCH (11:30)
--- NOTE | 2018-05-05 15:07 | CON ---
DATE OF CONSULTATION: 05/05/2018 GASTROENTEROLOGY CONSULTATION NOTE CHIEF COMPLAINT: Abdominal pain. HISTORY OF PRESENT ILLNESS: Mr. Rowland is an 87-year-old man who was admitted on 05/03/2018 with abd ominal pain. He had some diarrhea prior to admission, but that has since improved. He was found to have urinary tract infection and ureteral stone. He was started on antibiotics and his abdominal jose antonio n has improved. CT scan on admission on 05/03/2018 showed diverticulosis, but no obvious acute dickson es of diverticulitis. He has had no nausea or vomiting. He denies current diarrhea or constipation. He did undergo EGD and colonoscopy by Dr. Seth on 04/07/2018 for evaluation of chronic diarrhea. Upper endoscopy showed a small submucosal nodule in the gastric body. Biopsies over that site were u nremarkable. Colonoscopy showed poor colon prep in the right colon. A few small adenomas were remov ed. A larger adenoma was removed from the descending colon measuring 15 mm. Mild to moderate divert iculosis was noted in the left colon. He was clinically thought to have diverticulitis on presentati on and he has been treated with ciprofloxacin and ceftriaxone. 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 PAST SURGICAL HISTORY: Cholecystectomy followed by ERCP with stent for bile leak. The stent was rem chandan after that. He has had a pacemaker with ICD placement. FAMILY HISTORY: Negative for GI malignancies. SOCIAL HISTORY: Former smoker. No alcohol or drugs. ALLERGIES: No known drug allergies. MEDICATIONS: Currently in the hospital include carbidopa/levodopa, betamethasone, topical atorvastat in, allopurinol, Casodex, calcium carbonate, carvedilol, ceftriaxone, cholecalciferol, ciprofloxacin, donepezil, famotidine, finasteride, folic acid, montelukast, pantoprazole 40 mg daily, sertraline an d tamsulosin. REVIEW OF SYSTEMS: Negative x10 systems reviewed except as stated in history of present illness. Pl ease note that he was on Eliquis prior to admission. PHYSICAL EXAMINATION: VITAL SIGNS: Temperature 98.0, pulse 65, blood pressure 136/62. GENERAL: He is in no acute distress. He is awake and alert. EYES: Have no scleral icterus. OROPHARYNX: Clear without lesions. NECK: No cervical or supraclavicular lymphadenopathy. LUNGS: Clear to auscultation bilaterally. HEART: Regular rate and rhythm without murmur. ABDOMEN: Soft. He has mild tenderness in the left lower quadrant without guarding. Bowel sounds ar e present. EXTREMITIES: Trace lower extremity edema. IMPRESSION: 1. Left-sided abdominal pain currently is improved after antibiotics. He is covered with antibiotic s for clinical diagnosis of diverticulitis. The CT scan shows no obvious diverticulitis. He does duran ve known diverticulosis and since he has had clinical improvement, then he could complete a 7-day cou rse of antibiotics from a colon standpoint. It may be that he will require more prolonged antibiotic s regarding UTI and ureteral stones. 2. He did just undergo colonoscopy last month that showed colon polyps and normal random colon biops ies without microscopic colitis. Duodenal biopsies were negative for celiac disease. 3. Ureteral stones. This is being managed by Urology. 4. Chronic kidney disease and ischemic cardiomyopathy. RECOMMENDATIONS: 1. We should at least complete a 7-day course of antibiotics. However, ultimately the diagnosis of diverticulitis is not confirmed at this point. 2. No further GI intervention indicated at this point. Please call if we can be of assistance.
[2018-05-05] MEDS: Atorvastatin Calcium 20 MG TAB PO SCH (20:19)
[2018-05-05] MEDS: Montelukast Sodium 10 mg Tablet PO SCH (20:21)
[2018-05-05] MEDS: Famotidine 20 MG TAB PO SCH (20:40)
[2018-05-06 05:56] LABS: Anion Gap 12 mmol/L (10-20); BUN (Urea Nitrogen) 19 mg/dL (8.4-25.7); Calc. Creatinine Clearance 44 mL/min (70-130); Calcium 9.1 mg/dL (7.8-10.44); Carbon Dioxide 22 mmol/L (23-31); Chloride 113 mmol/L (98-107); Estimated GFR-MDRD 37; Glucose 123 mg/dL (83-110); Potassium 4.2 mmol/L (3.5-5.1); Sodium 143 mmol/L (136-145)
[2018-05-06 06:13] LABS: Eosinophils 1 % (0-10); Hemoglobin 11.9 g/dL (14.0-18.0); Lymphocytes 59 % (21-51); MDiff Complete? YES; Mean Corpuscular HGB CONC 34.5 g/dL (32.0-36.0); Mean Corpuscular Hemoglobin 34.7 pg (27.0-31.0); Mean Platelet Volume 7.2 fL (7.4-10.4); Monocytes 3 % (0-10); Neutrophil 37 % (42-75); Platelet Count 160 thou/uL (130-400); RBC Distribution Width 12.1 % (11.5-14.5); Red Blood Cell (RBC) Count 3.41 mill/uL (4.70-6.10); White Blood Cell (WBC) Count 11.2 thou/uL (4.8-10.8)
[2018-05-06 08:13] LABS: Hemoglobin 11.8 g/dL (14.0-18.0); Platelet Count 169 thou/uL (130-400)
[2018-05-06] MEDS: Tamsulosin HCl 0.4 MG CAP PO SCH ×2 (08:21→20:15)
[2018-05-06] MEDS: Finasteride 5 MG TAB PO SCH (08:21)
[2018-05-06] MEDS: Carvedilol 3.125 MG TAB PO SCH (08:22)
[2018-05-06] MEDS: Donepezil HCl 5 MG TAB PO SCH (08:22)
[2018-05-06] MEDS: Folic Acid 1 MG TAB PO SCH (08:22)
[2018-05-06] MEDS: Allopurinol 300 MG TAB PO SCH (08:22)
[2018-05-06] MEDS: Ketoconazole 2% Cream 15 gm Tube TOP SCH ×2 (08:23→20:15)
[2018-05-06] MEDS: Carbidopa/Levodopa 25-100 mg Tablet PO SCH (08:23)
[2018-05-06] MEDS: Betamethasone Val 0.1% OINT 15 GM TUBE TOP SCH (08:23)
[2018-05-06] MEDS: Bicalutamide 50 MG TAB PO SCH (08:27)
--- NOTE | 2018-05-06 09:19 | HP ---
CHIEF COMPLAINT: Abdominal pain. HISTORY OF PRESENT ILLNESS: This is an 87-year-old male with a known history of diverticulosis, CHF, horseshoe kidney with staghorn calculi, who initially presented with a chief complaint of left-sided abdominal pain. Of note, the patient was recently seen approximately 3 weeks ago for the same and was diagnosed with diverticulosis. However, earlier today the patient's complaint of pain was accompanied by a syncopal episode while sitting on the toilet right after having an incontinent stool movement. Please note that at the time of my evaluation, the patient is not a great historian. He is accompanied by his son who helps provide the majority of the history as well. Notably, per the son and also secondarily through the ER record appears per the as well, the patient himself has not been cognitively at his baseline just prior to admission. REVIEW OF SYSTEMS: As per HPI. Constitutional: No noted fevers or chills at home. HEENT: No complaints of headache, lightheadedness, or dizziness. Cardiovascular: No complaints of chest pain or chest pressure. No new shortness of breath. Respiratory: No new cough or recent upper respiratory infection. Gastrointestinal: As noted above. Otherwise, no issues with constipation, but the patient has been having intermittent diarrhea at home which she is sometimes incontinent of. Genitourinary: No noted changes in urinary frequency, color; however, it appears that over the last week, the patient had some foul-smelling urine. PAST MEDICAL HISTORY: Significant for, 1. Congestive heart failure, EF of approximately 30%-35%. 2. Coronary artery disease. 3. Permanent pacemaker placement. 4. Horseshoe kidney with staghorn calculi. 5. Prior history of prostate cancer. 6. Diabetes type 2. 7. Hyperlipidemia. 8. Hypertension. 9. Parkinson's disease. 10. Status post cholecystectomy. 11. Status post gallbladder "stent with subsequent removal." 12. 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 13. Status post tonsillectomy. 14. Status post permanent pacemaker placement. HOME MEDICATIONS: Please see the EMR. His list appears to include the following, montelukast sodium 10 mg p.o. q.p.m., pantoprazole 40 mg p.o. daily, folic acid 1 tab p.o. daily, Carbidopa/levodopa 1 tab p.o. daily, simvastatin 40 mg at p.o. bedtime, sertraline 50 mg p.o. daily, lisinopril 5 mg p.o. daily, furosemide 20 mg p.o. daily, Senokot-S 1 tab p.o. b.i.d. p.r.n., Bicalutamide 50 mg p.o. daily, Calcitriol 0.5 tab p.o. daily, Carvedilol unknown strength, allopurinol 300 mg p.o. daily, finasteride 5 mg p.o. daily, Apixaban 2.5 mg p.o. b.i.d., donepezil 5 mg p.o. daily. ALLERGIES: No known drug allergies. FAMILY HISTORY: The patient and his son are not aware of any family history of seizure or syncope. SOCIAL HISTORY: The patient lives at home with . No alcohol, tobacco or illicit drug use. The patient's son at bedside would be his medical decision maker if he is unable to make his own medical decisions and the patient wishes to be FULL CODE at this point in time. The patient states that he has attempted to get an advance directive completed multiple times in the past, but has been unable to do so. PHYSICAL EXAMINATION: GENERAL: The patient is awake, alert, conversant, lying in the hospital bed. He is unfortunately not a particularly reliable historian, however. HEENT: Normocephalic, atraumatic. Moist mucous membranes. Equal ocular motions are intact. CARDIOVASCULAR: S1, S2. No murmurs, rubs or gallops. Pulses 2+ bilateral upper extremities, no pitting pedal edema. RESPIRATORY: Reasonable air movement. No conversational dyspnea. No wheezes, rales or rhonchi. GASTROINTESTINAL: Positive bowel sounds. Soft, slightly tender to palpation over the left upper quadrant of the abdomen. MUSCULOSKELETAL: Moving all 4 extremities. LABORATORY DATA AND IMAGING: WBC 15.5, hemoglobin 14.8, hematocrit 45.6, platelets 202. Sodium 137, potassium 3.8, chloride 103, bicarbonate 22, BUN 24 , creatinine 2.3, glucose 199. Lactic acid initial was 5.0, subsequent was 1.7 , calcium 9.8, total bilirubin 0.7, AST 29, ALT 24, alkaline phosphatase 79. Troponin first is 0.11. BNP natriuretic peptide is 101.4, total protein 7.4, albumin 4.3, lipase 199. UA is significant for 30 of protein, moderate blood, moderate leukocyte esterase, 21-50 urine wbc's, 3+ urine bacteria. ASSESSMENT AND PLAN: This is an 87-year-old male who presents after having a syncopal episode while at home; suspect secondary to hypotension related to sepsis. 1. Urinary tract infection. The patient will be on empiric ciprofloxacin. He has had prior urinary tract infections with the last positive urine cultures in 2014. Based on those speciation, if he has a single organism, he will be sensitive to ciprofloxacin. 2. Hypotension, likely related to sepsis. The patient has responded to IV fluid bolus in the emergency department with subsequent resolution of his hypotension and currently has systolic blood pressures in the 130s to 140s currently. Continue to closely monitor his renal function. I will continue with IV fluids and recommend checking orthostatic vital signs. If the patient is no longer orthostatic and tolerating adequate oral intake, may discontinue the IVF as he has a history of congestive heart failure with ejection fraction was 30%-35%. 3. Sepsis, suspect that the patient's actual source is the urine given his clinical picture. However, the patient does have upper quadrant abdominal discomfort but that may be preexisting. The patient also has a slightly elevated lipase. We will keep the patient n.p.o., continue IV fluid as noted above and symptomatic pain management. In case there is an intra-abdominal component, the patient will have Flagyl added. Patient does appear to be improving since initial presentation in the emergency department with clearance of the patient's lactic acid along with resolution of his hypotension. 4. Prior known history of congestive heart failure with an EF of 35%, status post AICD placement. The patient otherwise continue his home regimen. 5. Parkinson's, continue home regimen. 6. History of a horseshoe kidney with staghorn calculi and prostate cancer. Appreciate Urology consultation. Continue with strict intake/output and closely monitor urine output. 7. Diet: As per above. 8. Activity as tolerated. 9. Deep venous thrombosis prophylaxis, adjust enoxaparin secondary to renal dysfunction and weight. 10. The patient will be admitted inpatient with telemetry. [facility]
--- NOTE | 2018-05-06 09:22 | PRG ---
DATE OF SERVICE: 05/06/2018 The patient did well overnight. He has no complaints. He is still voiding without difficulty. His vitals have been stable. He has been afebrile at 98.4. LABORATORY: Laboratory values reveal an H&H that is good at 11.8 and 37.2, creatinine of 1.67, which appears to be his baseline. We reviewed the risks and benefits of circumcision and bladder irrigation in detail. We will plan to do this without general anesthesia and only under IV sedation and local and we will plan for this to coppola. We signed the consent form together and with his listening on the phone. All questions were answered. We will plan for a circumcision in the OR with cystoscopy and bladder irrigation jory orrow under local anesthetic.
--- NOTE | 2018-05-06 10:26 | PDOC.PN ---
- Subjective Encounter Start Date: 05/06/18 Encounter Start Time: 10:00 Subjective: no sob or abd pain -: is feeling better -: is slowly working with PT - Objective Resuscitation Status: Resuscitation Status FULL:Full Resuscitation MAR Reviewed: Yes Vital Signs & Weight: Vital Signs (12 hours) Temp Pulse Resp BP Pulse Ox 05/06/18 08:00 97 05/06/18 07:35 98.3 F 84 17 141/69 H 94 L 05/06/18 03:03 98.3 F 68 17 126/60 97 Weight Weight 223 lb 11.2 oz I&O: 05/05/18 05/06/18 05/07/18 06:59 06:59 06:59 Intake Total 880 1940 Output Total 850 1185 Balance 30 755 Result Diagrams: 05/06/18 07:55 05/06/18 07:55 Additional Labs: Accuchecks 05/06/18 05/05/18 05/05/18 05:42 20:01 16:52 POC Glucose 115 H 138 H 123 H 05/05/18 10:37 POC Glucose 122 H Phys Exam - Physical Examination HEENT: PERRLA, moist MMs Neck: no JVD, supple Respiratory: no wheezing, no rales Cardiovascular: RRR, no significant murmur Gastrointestinal: soft, non-tender, positive bowel sounds Musculoskeletal: no edema, pulses present Neurological: non-focal, moves all 4 limbs Psychiatric: normal affect, A&O x 3 Dx/Plan (1) Abdominal pain Code(s): R10.9 - UNSPECIFIED ABDOMINAL PAIN Status: Resolved Qualifiers: (2) UTI (urinary tract infection) Status: Acute Qualifiers: Urinary tract infection type: acute cystitis Hematuria presence: without hematuria Qualified Code(s): N30.00 - Acute cystitis without hematuria (3) Asthma Code(s): J45.909 - UNSPECIFIED ASTHMA, UNCOMPLICATED Status: Chronic Qualifiers: Asthma severity: mild Asthma persistence: intermittent Asthma complication type: uncomplicated Qualified Code(s): J45.20 - Mild intermittent asthma, uncomplicated (4) CKD (chronic kidney disease) stage 3, GFR 30-59 ml/min Code(s): N18.3 - CHRONIC KIDNEY DISEASE, STAGE 3 (MODERATE) Status: Chronic (5) Chronic systolic congestive heart failure, NYHA class 3 Code(s): I50.22 - CHRONIC SYSTOLIC (CONGESTIVE) HEART FAILURE Status: Chronic Comment: EF- 30-35% in 2017 (6) Coronary artery disease Code(s): I25.10 - ATHSCL HEART DISEASE OF [place] CORONARY ARTERY W/O ANG PCTRS Status: Chronic Qualifiers: Associated angina: without angina (7) DM type 2 (diabetes mellitus, type 2) Status: Chronic Qualifiers: Diabetes mellitus long-term insulin use: without artificial insemination technician use Diabetes mellitus complication status: with unspecified complications Qualified Code(s) : E11.8 - Type 2 diabetes mellitus with unspecified complications (8) Dyslipidemia Code(s): E78.5 - HYPERLIPIDEMIA, UNSPECIFIED Status: Chronic (9) H/O prostate cancer Code(s): Z85.46 - PERSONAL HISTORY OF MALIGNANT NEOPLASM OF PROSTATE Status: Chronic (10) HTN (hypertension) Code(s): I10 - ESSENTIAL (PRIMARY) HYPERTENSION Status: Chronic Qualifiers: Hypertension type: essential hypertension (11) Macrocytic anemia Code(s): D53.9 - NUTRITIONAL ANEMIA, UNSPECIFIED Status: Chronic (12) Nephrolithiasis Status: Chronic Comment: has horse shoe kidney with multiple stone, partial obstr on right side (13) Obesity (BMI 30-39.9) Code(s): E66.9 - OBESITY, UNSPECIFIED Status: Chronic (14) Parkinson disease Code(s): G20 - PARKINSON'S DISEASE Status: Chronic - Plan for cystoscopy and circumcision in am -: october tx to medsurg if ok with cardio/urology -: hemostable, needs to amb with PT, walked only 20ft -: continue ceftriaxone, cipro, coreg, zocor, casodex, finasteride -: eliquis is held for procedure, dc plan per urology adv * . Review of Systems - Medications/Allergies Allergies/Adverse Reactions: Allergies Allergy/AdvReac Type Severity Reaction Status Date / Time No Known Drug Allergies Allergy Verified 09/09/16 17:33 Medications: Current Medications Acetaminophen (Tylenol) 650 mg PO Q4H PRN PRN Reason: Headache/Fever/Mild Pain (1-3) Hydrocodone Bitart/Acetaminophen ([place] 5/325) 1 tab PO Q4H PRN PRN Reason: Moderate Pain (4-6) Allopurinol (Zyloprim) 300 mg PO DAILY [facility] Last Admin: 05/06/18 08:22 Dose: 300 mg Atorvastatin Calcium (Lipitor) 20 mg PO HS [facility] Last Admin: 05/05/18 20:19 Dose: 20 mg Betamethasone Valerate (Valisone 0.1% Cream) 0 gm TOP DAILYPRN PRN PRN Reason: eczema Betamethasone Valerate (Valisone 0.1% Ointment) 0 gm TOP DAILY [facility] Last Admin: 05/06/18 08:23 Dose: 1 applic Bicalutamide (Casodex) 50 mg PO DAILY [facility] Last Admin: 05/06/18 08:27 Dose: 50 mg Bisacodyl (Dulcolax) 10 mg PO DAILYPRN PRN PRN Reason: Constipation Calcium Carbonate (Tums) 1,000 mg PO Q4H PRN PRN Reason: Heartburn or Indigestion Carbidopa/Levodopa (Sinemet 25-100) 1 tab PO DAILY [facility] Last Admin: 05/06/18 08:23 Dose: 1 tab Carvedilol (Coreg) 3.125 mg PO QA[facility] Last Admin: 05/06/18 08:22 Dose: 3.125 mg Cholecalciferol (Vitamin D3) 500 units PO DAILY [facility] Last Admin: 05/06/18 08:22 Dose: 500 units Donepezil HCl (Aricept) 5 mg PO DAILY [facility] Last Admin: 05/06/18 08:22 Dose: 5 mg Famotidine (Pepcid) 20 mg PO Q24HR [facility] Last Admin: 05/05/18 20:40 Dose: 20 mg Finasteride (Proscar) 5 mg PO DAILY [facility] Last Admin: 05/06/18 08:21 Dose: 5 mg Folic Acid (Folvite) 1 mg PO DAILY [facility] Last Admin: 05/06/18 08:22 Dose: 1 mg Ciprofloxacin/Dextrose 400 mg/ (Device) 200 mls @ 200 mls/hr IVPB Q12HR [facility] Last Admin: 05/06/18 08:23 Dose: 200 mls Ceftriaxone Sodium 2 gm/ (Sodium Chloride) 100 mls @ 200 mls/hr IVPB Q24HR [facility] Last Admin: 05/05/18 11:30 Dose: 100 mls Ketoconazole (Nizoral 2% Cream) 0 gm TOP BID [facility] Last Admin: 05/06/18 08:23 Dose: 1 applic Montelukast Sodium (Singulair) 10 mg PO QPM [facility] Last Admin: 05/05/18 20:21 Dose: 10 mg Ondansetron HCl (Zofran) 4 mg IVP Q6H PRN PRN Reason: Nausea/Vomiting Pantoprazole Sodium (Protonix) 40 mg PO DAILY [facility] Last Admin: 05/06/18 08:22 Dose: 40 mg Senna/Docusate Sodium (Senokot S) 2 tab PO BIDPRN PRN PRN Reason: Constipation Sertraline HCl (Zoloft) 50 mg PO DAILY [facility] Last Admin: 05/06/18 08:22 Dose: 50 mg Tamsulosin HCl (Flomax) 0.4 mg PO BID [facility] Last Admin: 05/06/18 08:21 Dose: 0.4 mg
[2018-05-06] MEDS: cefTRIAXone\\ROCEPHIN 2 GM in Sodium Chloride 0.9% 100 ML IVPB SCH (11:19)
--- NOTE | 2018-05-06 12:25 | PQF ---
CLINICAL DOCUMENTATION IMPROVEMENT CLARIFICATION FORM: ICD-10 Updated PLEASE DO AN ADDENDUM TO THE PROGRESS NOTE WITH ANY DOCUMENTATION UPDATES OR ADDITIONS AND CARRY THROUGH TO DC SUMMARY. THANK YOU. DATE: 05/06 ATTN: DR. Ru LANCASTER Please exercise your independent, professional judgment in responding to the clarification form. Clinical indicators are provided on the bottom of this form for your review. Please check appropriate box(s) to clarify if the following diagnosis has been ruled in or ruled out: SEPSIS [ x ] Ruled in diagnosis [ x ] Continue to treat [ ] Resolved [ ] Ruled out diagnosis [ ] Other diagnosis [ ] Unable to determine For continuity of documentation, please document condition throughout progress notes and discharge summary. Thank You. CLINICAL INDICATORS - SIGNS / SYMPTOMS / LABS ER PRESENTATION 05/03: SEPSIS ALERT RR: 25 HYPOTENSIVE CONFUSED LACTIC ACID: 5.0 WBC: 15.5 ER PHYSICIAN FINAL DIAGNOSES: SEVERE SEPSIS, UTI ATTENDING H&P 05/03: IMPRESSION: 1) UTI; 2) HYPOTENSION, LIKELY R/T SEPSIS; 3 ) SEPSIS, SUSPECT ACTUAL SOURCE IS URINE NO FURTHER MENTION OF SEPSIS TO DATE RISK FACTORS: UTI BPH CHRONIC RENAL STONES W/KNOWN HORSESHOE KIDNEY TREATMENTS: IVF (NS 05/03 - 11; 1.5L NS IN ER) IV ANTIBIOTICS (ROCEPHIN & CIPRO 05/03 - PRESENT) UROLOGY CONSULT THANK YOU! Nusrat (This form is maintained as a part of the permanent medical record) 2014 [employer]. All Rights Reserved Nusrat Bateman RN, BSN [email or web address] Office: [phone] [facility]
[2018-05-06] MEDS: Atorvastatin Calcium 20 MG TAB PO SCH (20:14)
[2018-05-06] MEDS: Montelukast Sodium 10 mg Tablet PO SCH (20:15)
[2018-05-06] MEDS: Famotidine 20 MG TAB PO SCH (20:15)
[2018-05-07 06:14] LABS: Anion Gap 10 mmol/L (10-20); BUN (Urea Nitrogen) 15 mg/dL (8.4-25.7); Calc. Creatinine Clearance 51 mL/min (70-130); Calcium 8.9 mg/dL (7.8-10.44); Carbon Dioxide 22 mmol/L (23-31); Chloride 112 mmol/L (98-107); Estimated GFR-MDRD 44; Glucose 81 mg/dL (83-110); Potassium 3.8 mmol/L (3.5-5.1); Sodium 140 mmol/L (136-145)
[2018-05-07 06:32] LABS: Band 7 % (5-11); Hemoglobin 11.4 g/dL (14.0-18.0); Lymphocytes 45 % (21-51); MDiff Complete? YES; Mean Corpuscular HGB CONC 32.8 g/dL (32.0-36.0); Mean Corpuscular Hemoglobin 32.9 pg (27.0-31.0); Mean Platelet Volume 7.3 fL (7.4-10.4); Monocytes 14 % (0-10); Neutrophil 34 % (42-75); Platelet Count 177 thou/uL (130-400); RBC Distribution Width 12.4 % (11.5-14.5); Red Blood Cell (RBC) Count 3.46 mill/uL (4.70-6.10); White Blood Cell (WBC) Count 10.7 thou/uL (4.8-10.8)
[2018-05-07] MEDS ORDERED: Bupivacaine 0.25% HCL 30 ML VIAL ONE (09:14)
[2018-05-07] MEDS ORDERED: Lidocaine 1% (PF) 30 ML VIAL ONE (09:14)
[2018-05-07] MEDS ORDERED: Bacitracin Zinc Ointment 30 gm TUBE ONE (09:14)
[2018-05-07] MEDS ORDERED: Midazolam HCl 2 mg/2 ml Vial ONE (09:29)
[2018-05-07] MEDS ORDERED: Fentanyl 100 MCG/2 ML VIAL ONE (09:30)
--- NOTE | 2018-05-07 10:21 | PDOC.PN ---
- Subjective Encounter Start Date: 05/07/18 Encounter Start Time: 10:19 Subjective: Feeling better, awaiting cystoscopy - Objective Resuscitation Status: Resuscitation Status FULL:Full Resuscitation MAR Reviewed: Yes Vital Signs & Weight: Vital Signs (12 hours) Temp Pulse Resp BP Pulse Ox 05/07/18 08:25 98 F 80 16 129/66 97 05/07/18 04:00 97.9 F 75 18 109/57 L 94 L Weight Weight 223 lb 11.2 oz I&O: 05/06/18 05/07/18 05/08/18 06:59 06:59 06:59 Intake Total 1940 760 Output Total 1185 600 Balance 755 160 Result Diagrams: 05/07/18 04:59 05/07/18 04:59 Additional Labs: Accuchecks 05/07/18 05/06/18 05/06/18 06:14 20:26 16:44 POC Glucose 79 106 116 H 05/06/18 10:59 POC Glucose 98 Phys Exam - Physical Examination HEENT: PERRLA, moist MMs, sclera anicteric, TM's clear, oral pharynx no lesions , 2+ tonsils Neck: no nodes, no JVD, supple, full ROM Respiratory: no wheezing, no rales, no rhonchi Cardiovascular: RRR, no significant murmur, no rub, gallop, irregular Gastrointestinal: soft, non-tender, no distention, positive bowel sounds Dx/Plan (1) UTI (urinary tract infection) Status: Acute Qualifiers: Urinary tract infection type: acute cystitis Hematuria presence: without hematuria Qualified Code(s): N30.00 - Acute cystitis without hematuria Comment: Urine cx wnl. Continue current abx empirically. Lactic acidosis resolved with IV hydration and abx, issues of kidney anatomy and staghorn renal calculi. Urology on board. Plans for cystoscopy (2) Acute on chronic renal failure Code(s): N17.9 - ACUTE KIDNEY FAILURE, UNSPECIFIED; N18.9 - CHRONIC KIDNEY DISEASE, UNSPECIFIED Status: Acute Qualifiers: Acute renal failure type: with other specified pathological lesion Chronic kidney disease stage: stage 3 (moderate) Qualified Code(s): N17.8 - Other acute kidney failure; N18.3 - Chronic kidney disease, stage 3 (moderate) Comment: Acute on chronic renal failre, IV fluids, creatinine trending down (3) Chronic systolic congestive heart failure, NYHA class 3 Code(s): I50.22 - CHRONIC SYSTOLIC (CONGESTIVE) HEART FAILURE Status: Chronic Comment: EF- 30-35% in 2017. Continue Carvedilol (4) Coronary artery disease Code(s): I25.10 - ATHSCL HEART DISEASE OF [place] CORONARY ARTERY W/O ANG PCTRS Status: Chronic Qualifiers: Coronary Disease-Associated Artery/Lesion type: [place] artery [place] vs. transplanted heart: [place] heart Associated angina: without angina Qualified Code(s): I25.10 - Atherosclerotic heart disease of [place] coronary artery without angina pectoris Comment: Continue statin (5) DM type 2 (diabetes mellitus, type 2) Status: Chronic Qualifiers: Diabetes mellitus shelter insulin use: without shelter use Diabetes mellitus complication status: with unspecified complications Qualified Code(s) : E11.8 - Type 2 diabetes mellitus with unspecified complications (6) Dyslipidemia Code(s): E78.5 - HYPERLIPIDEMIA, UNSPECIFIED Status: Chronic Comment: continue statin (7) Nephrolithiasis Status: Chronic Comment: has horse shoe kidney with multiple stone, partial obstr on right side (8) Parkinson disease Code(s): G20 - PARKINSON'S DISEASE Status: Chronic Comment: continue Carbidopa-Levodopa - Plan cont current plan of care, plan discussed w/ family, continue antibiotics, DVT proph w/SCDs * .
[2018-05-07] MEDS: Carvedilol 3.125 MG TAB PO SCH (11:45)
[2018-05-07] MEDS: Allopurinol 300 MG TAB PO SCH (11:46)
[2018-05-07] MEDS: Betamethasone Val 0.1% OINT 15 GM TUBE TOP SCH (11:47)
[2018-05-07] MEDS: Bicalutamide 50 MG TAB PO SCH (11:48)
[2018-05-07] MEDS: Carbidopa/Levodopa 25-100 mg Tablet PO SCH (11:48)
[2018-05-07] MEDS: Donepezil HCl 5 MG TAB PO SCH (11:49)
[2018-05-07] MEDS: Folic Acid 1 MG TAB PO SCH (11:50)
[2018-05-07] MEDS: Finasteride 5 MG TAB PO SCH (11:50)
[2018-05-07] MEDS: Ketoconazole 2% Cream 15 gm Tube TOP SCH ×2 (11:50→20:38)
[2018-05-07] MEDS: Tamsulosin HCl 0.4 MG CAP PO SCH ×2 (11:51→20:38)
[2018-05-07] MEDS: cefTRIAXone\\ROCEPHIN 2 GM in Sodium Chloride 0.9% 100 ML IVPB SCH (11:51)
[2018-05-07] MEDS ORDERED: Acetaminophen/Codeine 30-300mg Tablet PO PRN ×2 (13:01)
--- NOTE | 2018-05-07 13:52 | OP ---
DATE OF PROCEDURE: 05/07/2018 PREOPERATIVE DIAGNOSES: Phimosis, urinary tract infection, benign prostatic hypertrophy, bladder sto ne debris. POSTOPERATIVE DIAGNOSES: Phimosis, urinary tract infection, benign prostatic hypertrophy, bladder st one debris. PROCEDURE: Cystoscopy, bladder irrigation and circumcision. SURGEON: Soumya Mcknight M.D. ANESTHESIA: IV sedation with penile block using 14 mL lidocaine and Marcaine mixture. SPECIMENS: None. COMPLICATIONS: None. DRAINS REMAINING: None. BLOOD LOSS: Minimal. INDICATIONS: The patient is an 87-year-old male with multiple issues, but did come in with a urinary tract infection and a CT scan showed a small amount of bladder stone debris so in hopes of decreasin g future infections, especially given he has complicated stone history and present stone burden, we o pted for minimal intervention based on his cardiac status to include bladder irrigation and a circumc ision. TECHNIQUE: The patient was brought to the room by Anesthesia and laid on the table in supine positio n. After receiving IV sedation, the penile block was performed with lidocaine and Marcaine mixture f or 10 mL and 4 more were added later when he had some sensation still. At this point, his perineum w as prepped and draped in sterile fashion after his legs were put in lithotomy position and a 21-Frenc h cystoscope was traversed and the bladder inspected. Small tiny bladder stones were noted and irrig ated out. The MiNOWireless evacuator was used to help irrigation and this was after the 22-Afghan was switc hed to a 25-Afghan for further easy irrigation and rinsing out. This was done several times and then the scope was removed in its entirety after draining the bladder fully. At this point, he was repos itioned supine with the legs down and supported at the knees and he was again prepped and draped in s terile fashion. Two circumferential incisions were made, 1 with the foreskin reduced to the level of the mendoza and t he other with the foreskin retracted after performing a dorsal slit in order to fully retract it. Th is was made approximately 5 mm proximal to the mendoza. This excess skin was sharply excised. Hemost asis was achieved with electrocautery and then the 2 skin edges were reapproximated using 3-0 and 4-0 chromic in interrupted fashion. Bacitracin and sterile dressing and Coban were used as a wrap at th e end. The patient tolerated procedure well and was then awakened fully and transferred to PACU in s table condition.
--- NOTE | 2018-05-07 14:14 | PDOC.CTH ---
Cardiology Progress Note - Subjective Pt doing well overall. No current CV complaints. - Objective Vital Signs Temp Pulse Resp BP Pulse Ox 05/07/18 11:39 97.6 F 68 22 H 117/56 L 95 05/07/18 08:25 98 F 80 16 129/66 97 05/07/18 04:00 97.9 F 75 18 109/57 L 94 L Weight 223 lb 11.2 oz 05/06/18 05/07/18 05/08/18 06:59 06:59 06:59 Intake Total 1940 760 Output Total 1185 600 Balance 755 160 - Physical Examination General/Neuro: alert & oriented x3, NAD Neck: no JVD present Lungs: CTA, unlabored respirations Heart: RRR Abdomen: NT/ND, soft Extremities: + femoral B - Labs Result Diagrams: 05/07/18 04:59 05/07/18 04:59 Troponin/CKMB CK-MB (CK-2) 0.6 ng/mL (0-6.6) 05/03/18 09:57 Troponin I 0.015 ng/mL (< 0.028) 05/03/18 19:57 - Assessment/Plan Severe CAD Cardiomyopathy renal calculi Pt ok to proceed with surgery (circumcision, cystoscopy) Pt not felt to be at prohibitive risk but increased risk secodnary to underlying CAD
[2018-05-07] MEDS ORDERED: PROPOFOL 200 MG/20 ML VIAL ONE (16:21)
[2018-05-07] MEDS ORDERED: Lidocaine 1% PF 5 ML VIAL ONE (16:21)
[2018-05-07] MEDS: Atorvastatin Calcium 20 MG TAB PO SCH (20:37)
[2018-05-07] MEDS: Montelukast Sodium 10 mg Tablet PO SCH (20:38)
[2018-05-07] MEDS: Famotidine 20 MG TAB PO SCH (20:38)
[2018-05-08 08:07] LABS: Hemoglobin 11.6 g/dL (14.0-18.0); Platelet Count 172 thou/uL (130-400)
[2018-05-08] MEDS: Carvedilol 3.125 MG TAB PO SCH (08:18)
[2018-05-08] MEDS: Allopurinol 300 MG TAB PO SCH (08:18)
[2018-05-08] MEDS: Bicalutamide 50 MG TAB PO SCH (08:19)
[2018-05-08] MEDS: Betamethasone Val 0.1% OINT 15 GM TUBE TOP SCH (08:19)
[2018-05-08] MEDS: Carbidopa/Levodopa 25-100 mg Tablet PO SCH (08:20)
[2018-05-08] MEDS: Finasteride 5 MG TAB PO SCH (08:21)
[2018-05-08] MEDS: Folic Acid 1 MG TAB PO SCH (08:21)
[2018-05-08] MEDS: Donepezil HCl 5 MG TAB PO SCH (08:21)
[2018-05-08] MEDS: Ketoconazole 2% Cream 15 gm Tube TOP SCH (08:21)
[2018-05-08] MEDS: Tamsulosin HCl 0.4 MG CAP PO SCH (08:22)
--- NOTE | 2018-05-08 08:44 | PRG ---
DATE OF SERVICE: 05/08/2018 SUBJECTIVE: The patient is doing well, getting cleaned. Currently, he has no complaints except he d id have some burning with urination which is expected, but he has been otherwise voiding and feeling empty. OBJECTIVE: VITAL SIGNS: His vitals have been stable. He has had no temperatures. He has 600 out from the urin al by report. : His penis is still wrapped with no significant edema and a pink glans. ASSESSMENT: We have an 87-year-old male status post circumcision and cystoscopy with bladder irrigat ion doing well. Continue the wrap until the evening of the or the morning of the 15 and then that can be removed. From my standpoint, he is fine to resume any anticoagulation therapy that Cardi ology or primary care recommends.
[2018-05-08] MEDS: cefTRIAXone\\ROCEPHIN 2 GM in Sodium Chloride 0.9% 100 ML IVPB SCH (11:25)
--- NOTE | 2018-05-08 11:48 | PDOC.PN ---
- Subjective Encounter Start Date: 05/08/18 Encounter Start Time: 11:46 Subjective: Doing well, no comp-lains. Wants PT and rehab - Objective Resuscitation Status: Resuscitation Status FULL:Full Resuscitation MAR Reviewed: Yes Vital Signs & Weight: Vital Signs (12 hours) Temp Pulse Resp BP Pulse Ox 05/08/18 11:23 97.7 F 60 18 115/59 L 96 05/08/18 08:11 97.9 F 80 16 111/60 95 05/08/18 04:00 98.1 F 71 18 125/58 L 95 Weight Weight 203 lb 3.2 oz I&O: 05/07/18 05/08/18 05/09/18 06:59 06:59 06:59 Intake Total 760 680 Output Total 600 175 Balance 160 505 Result Diagrams: 05/08/18 07:59 05/08/18 07:59 Additional Labs: Accuchecks 05/08/18 05/08/18 05/07/18 10:37 05:48 21:18 POC Glucose 130 H 127 H 162 H 05/07/18 05/07/18 17:06 11:47 POC Glucose 133 H 125 H Phys Exam - Physical Examination HEENT: PERRLA, moist MMs, sclera anicteric, TM's clear, oral pharynx no lesions , 2+ tonsils Respiratory: no wheezing, no rales, no rhonchi Cardiovascular: RRR, no significant murmur, no rub Gastrointestinal: soft, non-tender, no distention, positive bowel sounds Musculoskeletal: edema present Deviation from normal: S/P Circumcision Dx/Plan (1) UTI (urinary tract infection) Status: Acute Qualifiers: Urinary tract infection type: acute cystitis Hematuria presence: without hematuria Qualified Code(s): N30.00 - Acute cystitis without hematuria Comment: Urine cx wnl. Continue current abx empirically. Lactic acidosis resolved with IV hydration and abx, issues of kidney anatomy and staghorn renal calculi. Urology on board. S/P cystoscopy, bladder irrigation, circumcision. OK to start AC as deemd required from urology perspective (2) Acute on chronic renal failure Code(s): N17.9 - ACUTE KIDNEY FAILURE, UNSPECIFIED; N18.9 - CHRONIC KIDNEY DISEASE, UNSPECIFIED Status: Acute Qualifiers: Acute renal failure type: with other specified pathological lesion Chronic kidney disease stage: stage 3 (moderate) Qualified Code(s): N17.8 - Other acute kidney failure; N18.3 - Chronic kidney disease, stage 3 (moderate) Comment: Acute on chronic renal failre, IV fluids, creatinine trending down (3) Chronic systolic congestive heart failure, NYHA class 3 Code(s): I50.22 - CHRONIC SYSTOLIC (CONGESTIVE) HEART FAILURE Status: Chronic Comment: EF- 30-35% in 2017. Continue Carvedilol (4) Coronary artery disease Code(s): I25.10 - ATHSCL HEART DISEASE OF [place] CORONARY ARTERY W/O ANG PCTRS Status: Chronic Qualifiers: Coronary Disease-Associated Artery/Lesion type: [place] artery [place] vs. transplanted heart: [place] heart Associated angina: without angina Qualified Code(s): I25.10 - Atherosclerotic heart disease of [place] coronary artery without angina pectoris Comment: Continue statin (5) DM type 2 (diabetes mellitus, type 2) Status: Chronic Qualifiers: Diabetes mellitus long term care social worker insulin use: without long term care social worker use Diabetes mellitus complication status: with unspecified complications Qualified Code(s) : E11.8 - Type 2 diabetes mellitus with unspecified complications (6) Dyslipidemia Code(s): E78.5 - HYPERLIPIDEMIA, UNSPECIFIED Status: Chronic Comment: continue statin (7) Nephrolithiasis Status: Chronic Comment: has horse shoe kidney with multiple stone, partial obstr on right side (8) Parkinson disease Code(s): G20 - PARKINSON'S DISEASE Status: Chronic Comment: continue Carbidopa-Levodopa - Plan cont current plan of care DW BEATA wrt to DC * .
[2018-05-08 15:51] VITALS: BP 125/65; TEMP 98.4
--- NOTE | 2018-05-09 01:59 | DIS ---
DATE OF ADMISSION: 05/03/2018 DATE OF DISCHARGE: 05/08/2018 ADMISSION DIAGNOSES: 1. Urinary tract infection. 2. Acute on chronic renal failure. 3. Chronic systolic congestive heart failure. 4. Coronary artery disease. 5. Diabetes. 6. Dyslipidemia. 7. Nephrolithiasis. 8. Parkinson's disease. DISCHARGE DIAGNOSES: 1. Urinary tract infection. 2. Acute on chronic renal failure. 3. Chronic systolic congestive heart failure. 4. Coronary artery disease. 5. Diabetes, type 2. 6. Dyslipidemia. 7. Nephrolithiasis. 8. Parkinson's disease. HISTORY OF PRESENT ILLNESS: Patient presented to the ER with complaints of left-sided abdominal pain . Patient was admitted for possible UTI and he was empirically treated with antibiotics. Urine and blood cultures were drawn. Patient's past medical history significant for diverticulosis, congestive heart failure, horseshoe kidney with staghorn calculi, and Parkinson's disease along with acute interventional cardiologist cheryl renal failure. Patient was treated empirically with IV antibiotics and he underwent cystoscopy a nd bladder irrigation and circumcision for his diagnosis of phimosis here in the hospital. The cysto scopy and a bladder irrigation was done because patient had some degrees of the stone and also had le ft hydronephrosis on the CT of the abdomen. SIGNIFICANT LABORATORY DATA: Creatinine on admission was 2.3 that slowly improved to 11.6 prior to d ischarge. RADIOLOGY REPORTS: 1. CT of the abdomen and pelvis without any contrast showed horseshoe kidney with extensive bilatera l renal calculi and extensive partially obstructing right ureteral calculi. 2. Diverticulosis. 3. Prominent lymph node of the upper abdomen. MICROBIOLOGY: Blood and urine cultures did not show any growth. DISCHARGE INSTRUCTIONS: 1. Patient was discharged with an instruction to follow up with his primary care physician and also the urologist. 2. Heart healthy diet. 3. Activity: As tolerated. 4. PT requested with home health.
== END 2018-05-08 16:42 | disposition home health service (06) | DRG 872 ==
LOC: ERS 09:38 → 2NO 17:25
PROVIDERS: ADMIT Internal Medicine; ATTEND Internal Medicine
PROC: 30233K1 Transfusion of Nonautologous Frozen Plasma into Peripheral Vein, Percutaneous Approach (ICD-10-PCS; principal; 2018-05-04)
PROC: 3E1K88Z Irrigation of Genitourinary Tract using Irrigating Substance, Via Natural or Artificial Opening Endoscopic (ICD-10-PCS; 2018-05-07)
PROC: 0VTTXZZ Resection of Prepuce, External Approach (ICD-10-PCS; 2018-05-07)
DX: A41.9 Sepsis, unspecified organism (principal); N30.00 Acute cystitis without hematuria; E87.2 Acidosis; N17.9 Acute kidney failure, unspecified; I13.0 Hypertensive heart and chronic kidney disease with heart failure and stage 1 through stage 4 chronic kidney disease, or unspecified chronic kidney disease; I50.22 Chronic systolic (congestive) heart failure; N20.2 Calculus of kidney with calculus of ureter; K57.92 Diverticulitis of intestine, part unspecified, without perforation or abscess without bleeding; E11.22 Type 2 diabetes mellitus with diabetic chronic kidney disease; N18.3 Chronic kidney disease, stage 3 (moderate); I25.10 Atherosclerotic heart disease of native coronary artery without angina pectoris; E78.5 Hyperlipidemia, unspecified; G20 Parkinson's disease; Z85.46 Personal history of malignant neoplasm of prostate; D53.9 Nutritional anemia, unspecified; Q63.1 Lobulated, fused and horseshoe kidney; N28.89 Other specified disorders of kidney and ureter; E66.9 Obesity, unspecified; J45.20 Mild intermittent asthma, uncomplicated; N47.1 Phimosis; N21.0 Calculus in bladder; Z95.810 Presence of automatic (implantable) cardiac defibrillator; Z86.718 Personal history of other venous thrombosis and embolism; F32.9 Major depressive disorder, single episode, unspecified; Z91.81 History of falling; Z87.891 Personal history of nicotine dependence; R65.20 Severe sepsis without septic shock; N40.0 Benign prostatic hyperplasia without lower urinary tract symptoms; K57.90 Diverticulosis of intestine, part unspecified, without perforation or abscess without bleeding; I25.5 Ischemic cardiomyopathy; K52.9 Noninfective gastroenteritis and colitis, unspecified
CPT/HCPCS: 36415; 36416; 70450; 71045; 74176; 80048; 80053; 81003; 81015; 82553; 82565; 83605; 83690; 83880; 84153; 84484; 85014; 85018; 85025; 85049; 87040; 87086; 93005; 96361; 96365; G8978-GP-CK; G8979-GP-CI; J0696; J0744; J2001; J2250; J2405; J2704; J3010; J7050; S0020; S0028

== ENCOUNTER 2018-06-17 19:38 | Emergency (ER) | payer MEDICARE, OTHER ==
[2018-06-17 20:58] LABS: Bilirubin Small (Negative); Blood, Urine Trace (Negative); Clarity CLEAR (Clear); Glucose, Urine (Dipstick) Negative (Negative); Leukocyte Moderate (Negative); Nitrite Negative (Negative); Protein, Urine (Dipstick) 30 mg/dL (Neg-Trace); Specific Gravity, Urine 1.021 (1.002-1.036)
[2018-06-17 20:59] LABS: Bacteria/HPF None Seen HPF (None Seen); Hyaline Casts/LPF 0-3 HYALINE CAST LPF (0-3 Hyaline); Pathc Cast-AUWi Flag 0.14 (0-2.49); Squamous Epithelial 0-3 HPF (0-3)
--- NOTE | 2018-06-17 22:17 | RAD ---
SINGLE VIEW OF THE CHEST TWO VIEWS ABDOMEN: Comparison: 05-03-18 chest radiograph and 09-09-16. CT chest 11-18-14 History: Constipation. FINDINGS: Single view of the chest and two views of the abdomen shows a nonspecific, nonobstructed bowel gas p attern. Air is seen throughout the colon. A few air bubbles are seen within the colon which may repre sent loose stool. No free air is seen on upright examination. Cholecystectomy clips are seen. A pacemaker is seen with its leads in the right atrium, right ventric le and coronary sinus. A 3.5 cm mass projects over the right thorax. IMPRESSION: 1. No evidence of obstruction. 2. Stable right pulmonary mass. POS: [facility]
== END 2018-06-17 22:20 | disposition home or self-care (01) ==
LOC: ERS 19:38
DX: K59.00 Constipation, unspecified (principal); N30.90 Cystitis, unspecified without hematuria; I11.0 Hypertensive heart disease with heart failure; I50.9 Heart failure, unspecified; D53.9 Nutritional anemia, unspecified; G20 Parkinson's disease; E11.9 Type 2 diabetes mellitus without complications; E78.5 Hyperlipidemia, unspecified; F32.9 Major depressive disorder, single episode, unspecified; N28.9 Disorder of kidney and ureter, unspecified; I25.10 Atherosclerotic heart disease of native coronary artery without angina pectoris; Q63.1 Lobulated, fused and horseshoe kidney; J45.909 Unspecified asthma, uncomplicated; Z79.899 Other long term (current) drug therapy; Z87.891 Personal history of nicotine dependence
CPT/HCPCS: 74022; 81003; 81015; 87086

== ENCOUNTER 2018-07-01 14:28 | Inpatient (IN) | payer MEDICARE ==
[~2018-07-01 14:28] MED LIST changes: -ISOVUE-370 76%-LOCM 1 ML ONE; +Iopamidol 370 76% 100 ML VIAL ONE
[2018-07-01] MEDS ORDERED: Sodium Chloride 0.9% 100 ML ONE ×2 (14:52→14:53)
[2018-07-01] MEDS ORDERED: cefTRIAXone\\ROCEPHIN 1 GM VIAL ONE (14:52)
[2018-07-01] MEDS ORDERED: Piperacillin/Tazobactam 4.5 GM VIAL ONE (14:53)
[2018-07-01 14:56] LABS: Mean Corpuscular HGB CONC 32.6 g/dL (32.0-36.0); Mean Corpuscular Hemoglobin 32.3 pg (27.0-31.0); Platelet Count 190 thou/uL (130-400); RBC Distribution Width 12.7 % (11.5-14.5); Red Blood Cell (RBC) Count 4.33 mill/uL (4.70-6.10); White Blood Cell (WBC) Count 22.1 thou/uL (4.8-10.8)
[2018-07-01 15:00] LABS: Bilirubin Small (Negative); Blood, Urine Large (Negative); Clarity CLOUDY (Clear); Glucose, Urine (Dipstick) Negative (Negative); Leukocyte Large (Negative); Nitrite Negative (Negative); Protein, Urine (Dipstick) 100 mg/dL (Neg-Trace); Specific Gravity, Urine 1.015 (1.002-1.036); Urobilinogen 0.2 mg/dL (0.2-1.0); pH, Urine 5.5 (5.0-9.0)
[2018-07-01 15:02] LABS: Pathc Cast-AUWi Flag 2.03 (0-2.49); Squamous Epithelial 0-3 HPF (0-3); Yeast-AUWi Flag 121.2 (0-25.0)
[2018-07-01 15:06] LABS: Chloride 102 mmol/L (98-107); Sodium 135 mmol/L (136-145)
[2018-07-01 15:13] LABS: Bacteria/HPF Rare-Few HPF (None Seen); Crystals/HPF 2+ AMORPH URATES HPF (Negative)
[2018-07-01 15:15] LABS: CKMB 1.4 ng/mL (0-6.6); Troponin I 0.023 ng/mL (< 0.028)
[2018-07-01 15:17] LABS: ALT (SGPT) Less than 7 U/L (8-55); AST (SGOT) 29 U/L (5-34); Albumin 3.9 g/dL (3.4-4.8); Alkaline Phosphatase 67 U/L (40-150); Anion Gap 27 mmol/L (10-20); BUN (Urea Nitrogen) 36 mg/dL (8.4-25.7); Bilirubin, Total 0.7 mg/dL (0.2-1.2); CK (CPK) 126 U/L (30-200); Calc. Creatinine Clearance 0 mL/min (70-130); Calcium 9.7 mg/dL (7.8-10.44); Carbon Dioxide 12 mmol/L (23-31); Estimated GFR-MDRD 26; Globulin 2.7 g/dL (2.4-3.5); Glucose 156 mg/dL (83-110); Protein, Total 6.6 g/dL (5.8-8.1)
[2018-07-01 15:18] LABS: MDiff Complete? YES
[2018-07-01 15:19] LABS: Band 2 % (5-11); Lymphocytes 47 % (21-51); Monocytes 4 % (0-10); Neutrophil 47 % (42-75); Platelet Morphology Comment Appears Adequate
[2018-07-01 15:20] LABS: Acetaminophen Less than 6.0 mcg/mL (10.0-30.0); Alcohol Less than 10 mg/dL (Less than 10); Lipase 93 U/L (8-78); Salicylate Less than 8.0 mg/dL (15.0-30.0)
--- NOTE | 2018-07-01 15:21 | RAD ---
PORTABLE CHEST: Date: 07/01/18 INDICATION: Trauma. Injury to chest. COMPARISON: 05/03/18. FINDINGS: Rounded mass density overlying the peripheral right mid lung is unchanged. Cardiomegaly again noted w ith AICD leads unchanged in position. No acute lung process or significant interval change noted. The bony thorax appears intact. IMPRESSION: Stable findings as described. POS: [facility]
--- NOTE | 2018-07-01 15:29 | CT ---
CT BRAIN NONCONTRAST: DATE: 07/01/18 TIME: 1503 hours HISTORY: 87-year-old male with altered mental status. As requested, this report was called STAT to Dr. Sanchez of the emergency department at 1512 hours on 0 07/01/18. FINDINGS: There is no midline shift or any other mass effect. There is no evidence of acute intracranial hemor rhage, large cortical infarct, obstructive hydrocephalus, or extraaxial fluid collection. The calvar ium is intact. There is diffuse brain parenchymal volume loss, not unusual for age. There is a band around the right globe. The right globe is elongated in the AP dimension. There is no interval change overall compare d to 05/03/18. IMPRESSION: 1. No acute intracranial findings. 2. Right-sided scleral buckle. CODE CR. jn [] POS: [facility]
--- NOTE | 2018-07-01 15:35 | CT ---
CT CERVICAL SPINE WITHOUT CONTRAST: Date: 07/01/18 INDICATION: Level II trauma. Altered mental status, found down. History of chronic back pain. COMPARISON: None. FINDINGS: Craniocervical junction appears within normal limits. There is multilevel spondylosis of cervical spi ne. No definite acute fracture or subluxation is present. There is diffuse osteopenia. There are mild interstitial fibrotic changes and paraseptal emphysema involving the lung apices. Prevertebral soft tissues appear within normal limits. IMPRESSION: No acute fracture or subluxation is demonstrated. Findings concerning the cervical spine called to Dr. Sanchez at 1514 hours on 07/01/18. CODE CR. POS: [facility]
[2018-07-01 15:49] LABS: Actual Bicarbonate (HCO3a) 16.9 mEq/L (22-28); Analyzer IN Cardio ER; Base Excess (BEa) -8.3 mEq/L (-2.0 to +3.0); CO2 Tension 33.7 mmHg (35.0-45.0); Calcium, Ionized 1.13 mmol/L (1.12-1.30); Carboxyhemoglobin (COHb) 0.1 gm% (0.0-3.0); Hemoglobin (Hb) 13.1 g/dL (14.0-18.0); O2 Tension (PaO2) 77.2 mmHg (> 60.0); Potassium - ABG Lab 3.35 mmol/L (3.70-5.30); pH, Arterial 7.32 (7.35-7.45)
[2018-07-01 15:50] LABS: Puncture Site RBA
[2018-07-01] MEDS ORDERED: Fentanyl 100 MCG/2 ML VIAL ONE ×2 (15:51→15:58)
--- NOTE | 2018-07-01 15:53 | CT ---
CT THORAX WITH CONTRAST CT ABDOMEN WITH CONTRAST CT PELVIS WITH CONTRAST: (trauma protocol) Date: 07/01/18 Time: 1506 hours HISTORY: 87-year-old male status post acute trauma to chest, abdomen, and pelvis from fall. Dr. Jolly gave this Level II trauma report STAT to Dr. Sanchez of the emergency department at 1529 hours on 07/01/18. The left cervical lymphadenopathy suspicious for malignancy was included in the discussi on by telephone. COMPARISON: 11/18/14. TECHNIQUE: IV administration of iodinated contrast media. No oral contrast media. Single phase scans of thorax, abdomen, and pelvis. Sagittal reconstructions of thoracic and lumbar spine. FINDINGS: Thoracic and lumbar spine: Vertebral body heights are maintained, with no evidence of compression fracture. Thorax: The approximately 2.6 x 2.6 x 2.4 cm pulmonary mass in the right lower lobe containing a single tiny central calcification, is unchanged since 2015, and is therefore, benign. 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 No evidence of acute pulmonary contusion. No pleural effus ion or pneumothorax. There is cardiomegaly with chamber dilation. Pacemaker with generator implanted on the left side. No thoracic aortic dissection, aneurysm, or rupture. Ectasia and tortuosity with at herosclerotic calcification of the thoracic aorta. No mediastinal hematoma or lymphadenopathy. There is a new finding of a cluster of numerous enlarged lymph nodes in the lower portion of the left neck, including supraclavicular region. As an example, one of the larger lymph nodes measures 1.5 x 1.0 cm. Level III, IV, and V lymph nodes are involved. There may be higher level pathological lymph n odes that were not included on this chest CT. Chronic small wedge-shaped region of consolidation at t he posterobasilar segment of left lower lobe abutting the left posterior pleural surface appears slig htly larger than on the previous CT. This appears to be chronic. Abdomen: No evidence of laceration involving liver, pancreas, kidneys, or spleen. Horseshoe kidney. Large numb er of moderate-sized bilateral renal calculi, including small staghorn calculi. A calculus in the rig ht renal pelvis was present previously, but currently no such calculus is in a renal pelvis. No hydro nephrosis. An approximately 4 x 5 cm exophytic cyst protruding from the right renal cortex is again n oted. The right side of the horseshoe kidney parenchyma has become atrophic now compared to previous CT. Heavy atherosclerotic calcification of abdominal aorta and iliac arteries, without aneurysm, diss ection, or rupture. No retroperitoneal hematoma. No free fluid within the peritoneal cavity. No obvio us acute findings of the colon down to the sigmoid level. No small bowel dilation. No adrenal nodule. Cholecystectomy clips in the gallbladder fossa. Pelvis: No free fluid within the pelvic cavity. New finding of distention of the rectum by a large amount of stool, to a caliber of 6.5 cm. Mild fat stranding of perirectal space, including presacral region. Th is appears similar or slightly worse compared to prior CT. New Benavides catheter within empty urinary bl adder. Enlarged prostate gland. Skeletal: No acute pelvic fracture identified. No rib fracture or clavicular fracture. No sternal fracture. IMPRESSION: 1. Significant pathologic new left cervical lymphadenopathy, suspicious for malignancy. 2. No evidence of acute traumatic injury in the thorax, abdomen, or pelvis. 3. Horseshoe kidney. 4. Nephrolithiasis, with large stone burden. 5. Interval atrophy of right renal parenchyma. 6. Enlarged prostate gland. 7. Rectal distention by large volume of stool. 8. Right lower lobe pulmonary benign mass, hamartoma. 9. Multiple other findings. CODE CR. JN R POS: [facility]
--- NOTE | 2018-07-01 16:06 | PDOC.FPRHP ---
- History of Present Illness Chief Complaint: AMS History of Present Illness: The following history was obtained from EMS/family/medical records Mr. Rowland presents to the ED with his family for AMS/fall EMS was called after he was found down by his family after being left for no more than two hours. They report that when they left him he was at baseline, talking/moving around and not complaining of anything. When they came back they found him down on the ground with a cut on his head, he was muttering things but unable to communicate much more than that he was in pain. for the past few days he has had some diarrhea and worsening of vision. he has been following up with urology regularly for bladder wash outs. he has a history of recurrent UTI and a known heavy stone burden. no recent illness overall family reports he has been improving since his last admission. ED Course: fentanyl, vanc, zosyn, 2L NS CBC, CMP, LA, CXR, TSH,CK, UDS, Lipase, ABG trauma CT, Xray leg- trauma - Allergies/Adverse Reactions Allergies Allergy/AdvReac Type Severity Reaction Status Date / Time No Known Drug Allergies Allergy Verified 09/09/16 17:33 - Home Medications Medication Instructions Recorded Confirmed Type Cholecalciferol (Vitamin D3) 0.5 tab PO DAILY 11/18/14 05/03/18 History [Vitamin D3] Simvastatin [Zocor] 40 mg PO HS 11/18/14 05/03/18 History Bicalutamide [Casodex] 50 mg PO DAILY 11/21/14 05/03/18 History Folic Acid [Folvite] 1 mg PO DAILY 11/21/14 05/03/18 History Sertraline HCl 50 mg PO DAILY 11/21/14 05/03/18 History Furosemide 20 mg PO DAILY 12/21/14 05/03/18 History Lisinopril 5 mg PO DAILY 12/21/14 05/03/18 History Pantoprazole [Protonix] 40 mg PO DAILY #30 tab 09/18/16 05/03/18 Rx Allopurinol [Zyloprim] 300 mg PO DAILY 04/03/18 05/03/18 History Apixaban [Eliquis] 2.5 mg PO BID 04/03/18 05/03/18 History Carbidopa/Levodopa 1 tablet PO DAILY 04/03/18 05/03/18 History [Carbidopa/Levodopa ODT] Carvedilol [Coreg] 0.5 tab PO DAILY 04/03/18 05/03/18 History Donepezil HCl [Aricept] 5 mg PO DAILY 04/03/18 05/03/18 History Fluocinonide [Fluocinonide 0.05% 1 applic TOP DAILY PRN 04/03/18 05/03/18 History Cream] Ketoconazole [Ketoconazole 2% Foam] 1 applic TOP BID 04/03/18 05/03/18 History Sennosides/Docusate Sodium 2 tab PO BID PRN 04/03/18 05/03/18 History [Senokot S] Triamcinolone Acetonide 1 applic TOP DAILY 04/03/18 05/03/18 History [Triamcinolone Acetonide 0.025% Ointment] Montelukast Sodium 10 mg PO QPM 05/03/18 05/03/18 History Acetaminophen [Tylenol Regular 650 mg PO Q4H PRN tab 05/08/18 Rx Strength] Famotidine [Pepcid] 20 mg PO Q24HR tab 05/08/18 Rx Finasteride [Proscar] 5 mg PO DAILY tab 05/08/18 Rx Tamsulosin HCl [Flomax] 0.4 mg PO BID #60 cap 05/08/18 Rx - History PMHx: chronic UTI/stones, DMII, HTN, CHF, afib, horseshoe kidney, prostate ca, HLD, parkinsons PSHx: multiple bladder washouts, cholecystectomy, appendectomy, AICD placement FHx:NC Social: former smoker, no alcohol or drugs - Review of Systems ROS unobtainable: due to mental status - Vital signs BP: 124/59 HR: 75 RR: 20 Tmax: 96.6 Pox: 99% on RA Wt: 104kg - Physical Exam Constitutional: NAD HEENT: normocephalic and atraumatic, conjunctiva clear, oropharynx clear, other (dry mucous membranes) Neck: trachea midline, other (lymphadenopathy present, non tender) Chest: no-tender to palpation, no lesions Heart: RRR, normal S1/S2, no murmurs/rubs/gallops, pulses present, no edema Lungs: CTAB, no respiratory distress, good air movement Abdomen: soft, bowel sounds present, no masses/distention, other (suprapubic tenderness) Musculoskeletal: normal structure, ROM grossly normal Neurological: no focal deficit Skin: no rash/lesions, other (poor skin turgor, cap refill>2 sec) Heme/Lymphatic: no unusual bruising or bleeding -Psychiatric: unable to asses, somnolent and minimally responsive FMR H&P: Results - Labs Result Diagrams: 07/02/18 04:07 07/02/18 04:07 Lab results: WBC 22.1 thou/uL (4.8-10.8) H 07/01/18 14:38 Hgb 14.0 g/dL (14.0-18.0) 07/01/18 14:38 Hct 42.9 % (42.0-52.0) 07/01/18 14:38 MCV 99.0 fL (78.0-98.0) H 07/01/18 14:38 Plt Count 190 thou/uL (130-400) 07/01/18 14:38 Band Neuts % (Manual) 2 % (5-11) L 07/01/18 14:38 ABG pH 7.32 (7.35-7.45) L 07/01/18 15:48 ABG pCO2 33.7 mmHg (35.0-45.0) L 07/01/18 15:48 ABG pO2 77.2 mmHg (> 60.0) H 07/01/18 15:48 Sodium 135 mmol/L (136-145) L 07/01/18 14:38 Potassium 4.0 mmol/L (3.5-5.1) 07/01/18 14:38 Chloride 102 mmol/L (98-107) 07/01/18 14:38 Carbon Dioxide 12 mmol/L (23-31) L 07/01/18 14:38 BUN 36 mg/dL (8.4-25.7) H 07/01/18 14:38 Creatinine 2.38 mg/dL (0.7-1.3) H 07/01/18 14:38 Glucose 156 mg/dL (83-110) H 07/01/18 14:38 Lactic Acid 3.1 mmol/L (0.5-2.2) H 07/01/18 14:40 Calcium 9.7 mg/dL (7.8-10.44) 07/01/18 14:38 Total Bilirubin 0.7 mg/dL (0.2-1.2) 07/01/18 14:38 AST 29 U/L (5-34) 07/01/18 14:38 ALT Less than 7 U/L (8-55) L 07/01/18 14:38 Alkaline Phosphatase 67 U/L (40-150) 07/01/18 14:38 Creatine Kinase 126 U/L (30-200) 07/01/18 14:38 CK-MB (CK-2) 1.4 ng/mL (0-6.6) 07/01/18 14:38 Serum Total Protein 6.6 g/dL (5.8-8.1) 07/01/18 14:38 Albumin 3.9 g/dL (3.4-4.8) 07/01/18 14:38 Lipase 93 U/L (8-78) H 07/01/18 14:40 Urine Ketones 15 mg/dL (Negative) H 07/01/18 14:42 Urine Blood Large (Negative) H 07/01/18 14:42 Urine Nitrite Negative (Negative) 07/01/18 14:42 Ur Leukocyte Esterase Large (Negative) H 07/01/18 14:42 Urine RBC 7-10 HPF (0-3) H 07/01/18 14:42 Urine WBC Greater Than 50-TNTC HPF (0-3) H 07/01/18 14:42 Ur Squamous Epith Cells 0-3 HPF (0-3) 07/01/18 14:42 Urine Bacteria Rare-Few HPF (None Seen) 07/01/18 14:42 - EKG Interpretation EKG: paced rhythm FMR H&P: A/P - Problem List (1) Septic shock Current Visit: Yes Status: Acute Code(s): A41.9 - SEPSIS, UNSPECIFIED ORGANISM; R65.21 - SEVERE SEPSIS WITH SEPTIC SHOCK (2) Metabolic encephalopathy Current Visit: Yes Status: Acute Code(s): G93.41 - METABOLIC ENCEPHALOPATHY (3) Acute on chronic renal failure Current Visit: No Status: Acute Code(s): N17.9 - ACUTE KIDNEY FAILURE, UNSPECIFIED; N18.9 - CHRONIC KIDNEY DISEASE, UNSPECIFIED Qualifiers: Acute renal failure type: with other specified pathological lesion Chronic kidney disease stage: stage 3 (moderate) Qualified Code(s): N17.8 - Other acute kidney failure; N18.3 - Chronic kidney disease, stage 3 (moderate) Comment: Acute on chronic renal failre, IV fluids, creatinine trending down (4) Chronic systolic congestive heart failure, NYHA class 3 Current Visit: No Status: Chronic Code(s): I50.22 - CHRONIC SYSTOLIC ( CONGE[place]IVE) HEART FAILURE Comment: EF- 30-35% in 2017. Continue Carvedilol (5) DM type 2 (diabetes mellitus, type 2) Current Visit: No Status: Chronic Qualifiers: Diabetes mellitus terminologist insulin use: without senior care use Diabetes mellitus complication status: with unspecified complications Qualified Code(s) : E11.8 - Type 2 diabetes mellitus with unspecified complications (6) Dyslipidemia Current Visit: No Status: Chronic Code(s): E78.5 - HYPERLIPIDEMIA, UNSPECIFIED Comment: continue statin (7) H/O prostate cancer Current Visit: No Status: Chronic Code(s): Z85.46 - PERSONAL HISTORY OF MALIGNANT NEOPLASM OF PROSTATE (8) HTN (hypertension) Current Visit: No Status: Chronic Code(s): I10 - ESSENTIAL (PRIMARY) HYPERTENSION Qualifiers: Hypertension type: essential hypertension Qualified Code(s): I10 - Essential (primary) hypertension (9) Nephrolithiasis Current Visit: No Status: Chronic Comment: has horse shoe kidney with multiple stone, partial obstr on right side (10) Parkinson disease Current Visit: No Status: Chronic Code(s): G20 - PARKINSON'S DISEASE Comment: continue Carbidopa-Levodopa - Plan Septic shock 2/2 UTI - WBC 22, UA w/ bacteria/WBC/LE, LA 3.1, hypothermia, hypotension present on admission - MAP<70 despite adequate fluid resuscitation, central line placed 07/01, pressors began - vanc/zosynx1 in ED, continue broad spectrum coverage, UCx collected - narrow coverage with sensitivities resulted - pulmonology consulted and aware, appreciate recs Metabolic encephalopathy - likely 2/2 UTI and lactic acidosis - underlying parkinsons and some level of altered mentation - monitor mental status, consider other etiologies if persistent with resolved sepsis Acute kidney injury on CKD - known kidney disease - LR 120ml/hr - consider urology consult in AM HTN - aware, hold home medications d/t sepsis DMII - aware, continue home meds once able to tolerate PO - mild SSI CHF - aware, hold lasix - monitor fluid status closely aFib w/ pacemaker - aware, continue home medications once able to tolerate PO Parkinsons - aware, continue home medications once able to tolerate PO HLD - aware, continue home medications once able to tolerate PO Code: full, discussed with son and (REFUGIO) ppx: eliquis, famotidine dispo: admit to ICU on levophed drip, monitor pressure/fluid status/respiratory status closely FMR H&P: Upper Level - Pertinent history 87 yo M with PMHx listed above who presents to ED via EMS from home after being found down by his and son. They report that at 11 am they left to run to have blood work done and got back about a hour and half later and he said he fell getting up to go to the bathroom. Family called EMS and by the time they got there, they report he had gotten progressively more unintelligible and lethargic. On arrival to the ED, his rectal temperature was 92 and he was not communicative or following commands. At this time, he is awake, alert and making eye contact, responding yes/no questions and following simple commands. and son at the bedside provided the majority of history. - Pertinent findings VS: hypothermic on arrival, improving, hypotensive Labs and imaging reviewed Gen: awake, alert, not oriented HEENT: atraumatic, normocephalic, LAD appreciated on L subclavicular and anterior cervical chain CV: RRR, no murmur noted RESP: CTAB ABD: soft, mildly TTP in RLQ and LUQ, no guarding or rebound EXT: no edema, pulses 2+ throughout NEURO: follows simple commands, no facial droop, cranial nerves intact, moving all extremities, gross sensation intact throughout - Plan Date/Time: 07/01/18 1605 87 yo M here with septic shock 2/2 UTI 1. Septic shock 2/2 UTI - s/p 3L NS in ED, persistent hypotension, will start on levophed gtt - continue Vanc/Zosyn - BCx, UCx pending - admit to ICU - repeat lactic acid pending - significant stone burden on CT, will notify Dr. Mcknight in the a.m. 2. Metabolic encephalopathy - likely 2/2 UTI, complicated by history of Parkinson's but not at baseline per family - CT head negative, consider MRI if persistent despite tx of #1 3. Acute kidney injury on CKD - known kidney disease, UZMA likely 2/2 septic shock - continue gentle fluids @ 100 mL/hr - repeat BMP in a.m. 4. HTN - holding home meds 5. DMII - mild SSI - resume home meds when tolerating PO 6. CHF - last EF 30-35% earlier this year - no signs fluid overload - gentle fluids 7. Chronic a-fib - On Eliquis at home, will start heparin gtt 8. Parkinson's - home meds once tolerating PO 9. HLD - Home meds once tolerating PO I, Kelli Yanez MD, have evaluated this patient and agree with findings/plan as outlined by science intern resident. Pertinent changes/additions are listed here. Addendum - Attending - Attending Attestation Date/Time: 07/01/181905 I personally evaluated the patient and discussed the management with Dr. Mcneill and Beau I agree with the History, Examination, Assessment and Plan documented above with any addition or exceptions noted below. 87 yo male present for evaluation of AMS and fall Progressive decline over the past few weeks with increasing weakness. Found down by today. EMS records reviewed. Requiring pressor support. Will need central line and art line. Infection work up pending. Concern for septic shock. Imaging pending. Rule out cardiovascular complications as cause. Patient also with history of parkinson's dz concern this is possible autonomic dysfunction related to dz state. Admit to ICU. Close monitoring throughout the night. Tomeka
--- NOTE | 2018-07-01 16:19 | RAD ---
RADIOGRAPH LEFT LEG TIBIA AND FIBULA 2 VIEWS: Date: 07/01/18 HISTORY: 87-year-old male status post acute traumatic injury to the left leg from fall. FINDINGS: No acute fracture is identified involving the tibia or fibula. IMPRESSION: Negative. POS: [facility]
--- NOTE | 2018-07-01 16:20 | RAD ---
LEFT KNEE 4 VIEWS: Date: 07/01/18 INDICATION: History of altered mental status. Found down at home. Concern for left knee injury. FINDINGS: There is moderate osteoarthrosis of the left knee. There is diffuse osteopenia. There is mild joint c apsular distention. There are vascular calcifications within the soft tissues. No definite acute frac ture or subluxation is evident. IMPRESSION: No acute osseous abnormality demonstrated. POS: [facility]
--- NOTE | 2018-07-01 16:30 | RAD ---
LEFT FEMUR: Date: 07/01/18 INDICATION: Trauma with injury. Fall at home. FINDINGS: AP and lateral views of femur obtained with a total of four images. Degenerative changes of hip and knee. No evidence of acute fracture. IMPRESSION: No acute fracture identified. POS: [facility]
[2018-07-01] MEDS ORDERED: Morphine 4 MG/ML VIAL ONE (18:31)
[2018-07-01] MEDS ORDERED: Norepinephrine 8 MG/0.9% NS 250 ML ONE (18:44)
--- NOTE | 2018-07-01 19:17 | RAD ---
PORTABLE CHEST: 07/01/2018 PROVIDED CLINICAL HISTORY: Altered mental status. COMPARISON: Exam performed earlier on the same date. FINDINGS: Significant interval change with respect to the prior examination is not apparent. IMPRESSION: As above. POS: [facility]
[2018-07-01 19:30] LABS: Lactic Acid 1.4 mmol/L (0.5-2.2)
[2018-07-01 19:57] LABS: CKMB 5.8 ng/mL (0-6.6)
[2018-07-01] MEDS ORDERED: Acetaminophen 325 MG TAB PO PRN (21:41)
[2018-07-01] MEDS ORDERED: Ondansetron PF 4 MG/2 ML Vial IVP PRN ×2 (21:41→22:53)
[2018-07-01] MEDS ORDERED: Ondansetron ODT 4 MG TAB SL PRN (21:41)
[2018-07-01] MEDS ORDERED: Piperacillin/Tazobactam 2.25 GM in Sodium Chloride 0.9% 100 ML IVPB SCH (22:00)
[2018-07-01 22:30] VITALS: BMI 29.7
[2018-07-01] MEDS ORDERED: Norepinephrine 8 MG/0.9% NS 250 ML IVPB SCH (22:53)
[2018-07-01] MEDS ORDERED: Heparin 25,000 units/D5W 500 ML IVPB SCH (22:53)
[2018-07-01] MEDS ORDERED: HumaLOG 300 UNITS/3 ML VIAL SC PRN ×2 (22:53)
[2018-07-01] MEDS ORDERED: Ondansetron ODT 4 MG TAB PO PRN (22:53)
[2018-07-01] MEDS ORDERED: Dextrose 5% in Water 1,000 ML IV PRN (22:53)
[2018-07-01] MEDS ORDERED: Dextrose 50% Abboject 50 ML SYRINGE SLOW IVP PRN (22:53)
[2018-07-01] MEDS ORDERED: Heparin 10,000 UNITS/ 10 ML VIAL SLOW IVP SCH (22:53)
[2018-07-01] MEDS ORDERED: Acetaminophen 650 MG Suppository PR PRN (22:53)
[2018-07-01] MEDS: Piperacillin/Tazobactam 3.375 GM in Sodium Chloride 0.9% 100 ML IVPB SCH (23:28)
[2018-07-01] MEDS: Lactated Ringer's 1,000 ML IV SCH (23:28)
[2018-07-01] MEDS ORDERED: Famotidine 20 MG TAB PO SCH (23:30)
[2018-07-01] MEDS ORDERED: Famotidine/PF 20 mg/2ml Vial SLOW IVP SCH (23:30)
[2018-07-02] MEDS: Acetaminophen 325 MG TAB PO PRN ×2 (00:25→20:06)
[2018-07-02] MEDS ORDERED: Nystatin Powder 15 GM BOT TOP PRN (01:25)
[2018-07-02] MEDS: Piperacillin/Tazobactam 3.375 GM in Sodium Chloride 0.9% 100 ML IVPB SCH ×4 (04:35→22:57)
[2018-07-02] MEDS: traMADol HCl 50 MG TAB PO SCH (04:35)
[2018-07-02 05:07] LABS: ALT (SGPT) 9 U/L (8-55); AST (SGOT) 26 U/L (5-34); Albumin 3.4 g/dL (3.4-4.8); Alkaline Phosphatase 53 U/L (40-150); Anion Gap 19 mmol/L (10-20); BUN (Urea Nitrogen) 33 mg/dL (8.4-25.7); Bilirubin, Total 0.7 mg/dL (0.2-1.2); Calc. Creatinine Clearance 32 mL/min (70-130); Calcium 8.5 mg/dL (7.8-10.44); Carbon Dioxide 18 mmol/L (23-31); Chloride 105 mmol/L (98-107); Estimated GFR-MDRD 27; Globulin 2.5 g/dL (2.4-3.5); Glucose 87 mg/dL (83-110); Potassium 3.7 mmol/L (3.5-5.1); Protein, Total 5.9 g/dL (5.8-8.1); Sodium 138 mmol/L (136-145)
[2018-07-02 05:28] LABS: CKMB 5.3 ng/mL (0-6.6)
[2018-07-02 05:29] LABS: Band 5 % (5-11); Hemoglobin 12.4 g/dL (14.0-18.0); Lymphocytes 43 % (21-51); MDiff Complete? YES; Mean Corpuscular Hemoglobin 33.3 pg (27.0-31.0); Mean Corpuscular Volume 97.8 fL (78.0-98.0); Mean Platelet Volume 7.8 fL (7.4-10.4); Monocytes 6 % (0-10); Neutrophil 41 % (42-75); Platelet Count 141 thou/uL (130-400); RBC Distribution Width 12.8 % (11.5-14.5); Reactive Lymphocytes 5 % (0-10); Red Blood Cell (RBC) Count 3.74 mill/uL (4.70-6.10); White Blood Cell (WBC) Count 16.9 thou/uL (4.8-10.8)
--- NOTE | 2018-07-02 07:21 | PDOC.FM ---
- Subjective Subjective: Pierre Rowland seen at bedside this morning. He is doing well and there were no acute events overnight. He complains of some abdominal pain related to his constipation, states he has not had a BM in about 5 days. He denies fever, chills, chest pain, dyspnea, n/v. He did not require pressors overnight. He can be transitioned out of the ICU today. - Objective MAR Reviewed: Yes Vital Signs & Weight: Vital Signs (12 hours) Temp Pulse Ox 07/02/18 04:00 98.4 F 07/02/18 01:00 98.5 F 07/01/18 22:29 98.3 F 07/01/18 22:00 98.0 F 97 Weight Weight 96.9 kg Most Recent Monitor Data Heart Rate from ECG 87 NIBP 107/47 NIBP BP-Mean 67 Respiration from ECG 22 SpO2 96 I&O: 07/01/18 07/02/18 07/03/18 06:59 06:59 06:59 Intake Total 665 Output Total 415 Balance 250 Result Diagrams: 07/02/18 04:07 07/02/18 04:07 Phys Exam - Physical Examination Constitutional: NAD HEENT: moist MMs, sclera anicteric Neck: supple, full ROM Respiratory: no wheezing, no rales, no rhonchi, clear to auscultation bilateral Cardiovascular: RRR, no significant murmur Gastrointestinal: soft, no distention, positive bowel sounds mild TTP on the left side Musculoskeletal: no edema, pulses present Neurological: non-focal, normal sensation Psychiatric: normal affect, A&O x 3 Dx/Plan (1) Septic shock Code(s): A41.9 - SEPSIS, UNSPECIFIED ORGANISM; R65.21 - SEVERE SEPSIS WITH SEPTIC SHOCK Status: Acute (2) UTI (urinary tract infection) Status: Acute Qualifiers: Urinary tract infection type: acute cystitis Hematuria presence: without hematuria Qualified Code(s): N30.00 - Acute cystitis without hematuria (3) Metabolic encephalopathy Code(s): G93.41 - METABOLIC ENCEPHALOPATHY Status: Acute (4) Acute on chronic renal failure Code(s): N17.9 - ACUTE KIDNEY FAILURE, UNSPECIFIED; N18.9 - CHRONIC KIDNEY DISEASE, UNSPECIFIED Status: Acute Qualifiers: Acute renal failure type: with other specified pathological lesion Chronic kidney disease stage: stage 3 (moderate) Qualified Code(s): N17.8 - Other acute kidney failure; N18.3 - Chronic kidney disease, stage 3 (moderate) (5) Physical deconditioning Code(s): R53.81 - OTHER MALAISE Status: Acute (6) Coronary artery disease Code(s): I25.10 - ATHSCL HEART DISEASE OF [place] CORONARY ARTERY W/O ANG PCTRS Status: Chronic Qualifiers: Coronary Disease-Associated Artery/Lesion type: [place] artery [place] vs. transplanted heart: [place] heart Associated angina: without angina Qualified Code(s): I25.10 - Atherosclerotic heart disease of [place] coronary artery without angina pectoris (7) DM type 2 (diabetes mellitus, type 2) Status: Chronic Qualifiers: Diabetes mellitus terminal operator insulin use: without prison use Diabetes mellitus complication status: with unspecified complications Qualified Code(s) : E11.8 - Type 2 diabetes mellitus with unspecified complications (8) Parkinson disease Code(s): G20 - PARKINSON'S DISEASE Status: Chronic (9) Supraclavicular adenopathy Code(s): R59.0 - LOCALIZED ENLARGED LYMPH NODES Status: Acute - Plan Plan: 1. Septic shock (resolved) 2/2 UTI - s/p 3L NS in ED, persistent hypotension, briefly on Levo ggt, discontinued on 07/01/18 - continue Vanc/Zosyn - BCx, UCx pending - Will transition to floor today - significant stone burden on CT, horseshoe kidney, staghorn calculus with multiple moderate sized chronic stones - Dr. Mcknight is patient's Urologist, no additional recommendations from current plan, she will stop by to see patient. 2. Metabolic encephalopathy - likely 2/2 UTI, complicated by history of Parkinson's but not at baseline per family - CT head negative, consider MRI if persistent despite tx of #1 3. Acute kidney injury on CKD - known kidney disease, UZMA likely 2/2 septic shock - continue gentle fluids @ 100 mL/hr - repeat BMP in a.m. 4. 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 HTN - holding home meds - pt required pressors initially but pressors d/c'd on 07/01/18 - will monitor BP closely 6. DMII - mild SSI - resume home meds when tolerating PO - accuchecks achs 7. CHF - last EF 30-35% earlier this year - no signs fluid overload - gentle fluids - monitor resp status - strict I/Os 8. Chronic a-fib - Cont home eliquis 9. Parkinson's - home meds once tolerating PO 10. HLD - Home meds once tolerating PO Addendum - Attending - Attending Attestation Date/Time: 07/02/18 1036 I personally evaluated the patient and discussed the management with Dr. Longo. I agree with the History, Examination, Assessment and Plan documented above with any addition or exceptions noted below. Patient here with suspected Sepsis 2/2 UTI in the setting of multiple previous UTI and nephrolithiasis. He had CT done overnight which did not show obstructing stone but was done with contrast. Will discuss with radiology what the potential for an obstructed stone is on that imaging and hopefully not need to repeat. Clinically, he is improved, afebrile, and WBC downtrending. Renal function improved somewhat but still elevated above what appears to be his baseline. Improvement in his metabolic acidosis. He sees Urology outpatient and will give them a courtesy call. Continues IVF and abx and await cx results. BP low normal, hold anti-HTN meds. Will transfer out of CCU this morning as no need for respiratory or pressor support at this time.
[2018-07-02] MEDS ORDERED: Prevnar 13-Val Conj/PF 0.5 ML SYRINGE IM ONE (09:00)
[2018-07-02] MEDS ORDERED: Famotidine/PF 20 mg/2ml Vial SLOW IVP SCH (09:00)
[2018-07-02] MEDS ORDERED: Bisacodyl 10 MG SUPP PR PRN (09:11)
[2018-07-02] MEDS ORDERED: Famotidine 20 MG TAB PO SCH (09:15)
[2018-07-02] MEDS: Senokot S 8.6-50 MG TAB PO PRN ×2 (11:42→12:40)
[2018-07-02] MEDS: Famotidine 20 MG TAB PO SCH (11:42)
[2018-07-02] MEDS: Lactated Ringer's 1,000 ML IV SCH ×2 (11:43→20:06)
[2018-07-02] MEDS ORDERED: Milk Of Magnesia 30 ML UDCUP PO PRN (12:13)
[2018-07-02] MEDS: Apixaban 2.5 MG TAB PO SCH ×2 (12:40→20:06)
--- NOTE | 2018-07-02 13:02 | CON ---
DATE OF CONSULTATION: HISTORY OF PRESENT ILLNESS: An 87-year-old morbidly obese gentleman, 104 kg, presented to the ER yesterday after became confused after he sustained a fall. He was telling me that he was tried to get to the bathroom, which is not a long distance. He slipped and fell down. His saturations were 92% on room air. His blood pressure was low in the ER. He was resuscitated volume. I was told that attending physicians tried to put a central line and were unsuccessful. He is now in the ICU. He is off all pressors. Awake, alert, and responsive. It is felt that he had UTI. He has chronic problems, chronic pain. He is having some abdominal issues. He has chronic constipation as per the . He has limitation of activity. Denies any coughing or wheezing. PAST MEDICAL HISTORY: Reported for congestive heart failure, pacemaker inserted, history of anemia, history of renal failure, prostate cancer, diabetes, hyperlipidemia, hypertension, Parkinson disease, asthma, and chronic UTI. PAST SURGICAL HISTORY: Eye surgery, gallbladder, cholecystectomy, stents, tonsils, pacemaker, kidney stones removed. SOCIAL HISTORY: Former smoker. No alcohol. MEDICATIONS: Home medicine includes; 1. Flomax 0.4. 2. Zocor 40. 3. Zoloft 50. 4. Singulair 10. 5. Lisinopril 5. 6. Lasix 20. 7. Folic acid. 8. Proscar 5. 9. Pepcid 20. 10. Aricept 5 mg. 11. carbidopa one tablet daily. 12. Casodex 50. 13. Eliquis 2.5. ALLERGIES: NONE. REVIEW OF SYSTEMS: Otherwise, 10-point negative. PHYSICAL EXAMINATION: GENERAL: Awake, alert, and responsive. VITAL SIGNS: Blood pressure 110/50, saturations are 98%, respiratory rate 18, and pulse 80. CHEST: Decreased breath sounds. No wheezing. CARDIAC: Normal S1 and S2. No gallops. ABDOMEN: Soft. NEUROLOGIC: Awake, alert, and responsive. EXTREMITIES: No edema. LABORATORY DATA: White count 16,000, hemoglobin and hematocrit of 12 and 36, platelet count is normal, 41 segs. His creatinine is 2.3, mildly elevated from baseline. All cultures so far negative. His chest x-ray from yesterday shows the pacemaker, questionable left-sided infiltrate. IMPRESSION: Leukocytosis, hypertension, urinary tract infection, encephalopathy, , asthma, renal failure, congestive heart failure. PLAN: 1. Continue antibiotics. We will deescalate once we have all the cultures back. 2. Pulmonary Critical Care will follow while in the ICU. Consultation note, 70 minutes, 50% direct patient care. Job ID: [id number]
[2018-07-02] MEDS ORDERED: Bisacodyl 10 MG SUPP PR SCH (14:00)
[2018-07-02] MEDS: Vancomycin HCl 750 MG in Sodium Chloride 0.9% 250 ML 250 ML IVPB SCH (15:29)
--- NOTE | 2018-07-02 16:12 | CON ---
DATE OF CONSULTATION: 07/02/2018 HISTORY OF PRESENT ILLNESS: An 87-year-old gentleman, who has a history of Parkinson disease; ischemic cardiomyopathy with a pacemaker; prostate cancer, until now in remission; and type 2 diabetes mellitus; who has been unwell for the past few months with recurrent episodes of hypotension associated with diarrhea. The initial evaluation demonstrated a horseshoe kidney with cysts and nephrolithiasis, but no obstruction. He did have prostatic enlargement. The patient has had numerous cultures submitted since September 08, and all those urine cultures and blood cultures have been no growth on final results. Nonetheless, he has been treated with antimicrobial therapy and he has seen Urology, Dr. Mcknight has done bladder washouts. The last operative note is from May 07 and the procedure carried out was cystoscopy with bladder irrigation as well as circumcision. On the day of admission, the family had left him in the house for a brief period of time, but when they returned, he was down on the ground with a small cut in his forehead with some difficulty with communication. He had experienced return of his diarrhea and denied any headaches, except for the area of injury, no cough or sputum production. No chest pain or abdominal pain. Still with intermittent loose stool and was able to void without difficulty without dysuria. He is somewhat mobility impaired. 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 He also has had a prior cholecystectomy, appendectomy, AICD placement. FAMILY HISTORY: Noncontributory. SOCIAL HISTORY: Former smoker. He is from [place], used to work with the . ALLERGY HISTORY: No known drug allergies. CURRENT MEDICATIONS: 1. P.r.n. medications. 2. Eliquis. 3. Lipitor. 4. Casodex. 5. Dextrose. 6. Aricept. 7. Famotidine. 8. Proscar. 9. Fluocinonide. 10. Folic acid. 11. Insulin. 12. Singulair. 13. Levophed. 14. Zosyn. 15. Vancomycin. PHYSICAL EXAMINATION: VITAL SIGNS: Temperature max 98.4, blood pressure 110/52, heart rate 82, respiratory rate 18, and O2 saturation 97%. SKIN: Remarkable for the presence of a Benavides catheter. He also has a triple-lumen catheter, which was attempted in the right IJ, but was not successful. I believe now he has a peripheral IV access. Areas of bruising in the upper extremities, in the left knee area. The patient has a fairly large lymph node at the base of the neck, left side, it is not fixed to the underlying tissues. HEENT: Ocular movements conjugate. Pupils are equal. Oral cavity is moist. A quite a few teeth in place with a lot of decay and gum disease. NECK: Supple. No jugular venous distention. LUNGS: Symmetric air entry with no crackles or wheezing. HEART: S1 and S2 with a soft aortic murmur. Diminished heart sounds. ABDOMEN: Soft, nondistended, tender. No ascites. A little bit of tenderness in the left upper quadrant. No bladder distention. EXTREMITIES: Some tenderness in the left knee prepatellar region, where he fell and hit his knee. Trace edema in lower extremities. Pulses 1+ in dorsalis pedis. Plantar responses are flexor. No clonus. NEUROLOGIC: He is awake, he knows his name, he knows he is in the hospital, but could not tell me the date, and recollection is limited. LABORATORY DATA: White cell count is 22,000, down to 16; hemoglobin 14; platelets 190; 2% bands; 47% neutrophils. PH 7.32, pCO2 of 33, PO2 of 77. Sodium 138, creatinine is 2.31 and his baseline is around 1.5. Liver profile, normal. Albumin 3.4, globulin 2.5. TSH 0.5. Urinalysis, greater than 50 wbc's. Toxicology negative. Microbiology again thus far cultures negative at 24 hours for the urine and blood cultures in progress. A CT of abdomen, chest, and pelvis with abnormal lymph nodes at base of neck left side, consistent with metastatic malignancy, and note, there are stones but no evidence of pyelonephritis or obstruction. No other intraabdominal inflammatory process noted, no free fluid in the peritoneal cavity. Repeat chest x-ray from yesterday with no interval change. ASSESSMENT: 1. Ischemic cardiomyopathy, biventricular pacemaker, decline in his health status for the past few months with episodes of diarrhea, volume depletion, alternating with constipation. 2. Nephrolithiasis with extensive treatment with washouts and treatment with antimicrobials, but no positive cultures noted. 3. Decline with a fall and hypotension with presumption of sepsis. 4. Abnormal lymph nodes in the left neck chain with a history of prostate cancer and a history of smoking in the past. 5. Neutrophilia. DISCUSSION: Differential diagnosis includes sepsis with secondary to the usual processes, particularly the urinary tract. This will have to be confirmed by cultures. If the cultures remain negative, then we will have to consider other possibilities, particularly metastatic malignancy as the culprit behind his clinical deterioration over the past few weeks to months. This could be either metastatic prostate or a 2nd primary cancer with metastases to the lymph node chain. He has a mass in the lung, but that appears to be benign without any changes over the past few years and central calcification. He may need a core needle biopsy of the lymph node at the left side for diagnostic purposes. Job ID: [id number]
--- NOTE | 2018-07-02 19:46 | CON ---
DATE OF CONSULTATION: 07/02/2018 REASON FOR CONSULTATION: Consultation was requested for urinary tract infection with presumed sepsis. HISTORY OF PRESENT ILLNESS: The patient is known to me as I was consulted on previously for such an admission and has a known horseshoe kidney full of stones as well as significant right-sided ureteral stones, that each time he has been imaged have never appeared to be obstructive and each time he is treated for his urine infection, he gets better slowly with antibiotics. He has not been demonstrated to have obstruction from these ureteral stones thus far. He was sent out on antibiotics from his last hospitalization, followed up in the office and had further infection, so that is when I started 4 weeks of Cipro, starting 06/14/2018, and he was still on these when he presented to this admission. Normally, he has frequency every 2 to 3 hours and nocturia x1. He has been trying to get more fluid in, however, that has to be tampered with his cardiac and pulmonary status. He is already on tamsulosin twice a day and finasteride after he had postop retention for gallbladder surgery back in 2014, but if not had further retention since, we have already reviewed how he is a candidate for [facility] based on his symptoms, but he is ultimately not a good surgical candidate in general and his PCRs have been 0 when checked recently. Based on infections and his phimosis, I did cystoscopy and circumcision under MAC only on 05/07/2018, and noted debris only in the bladder, which I irrigated out and was hoping that both the circumcision and irrigation would decrease his chance further for infections, but more than likely his stones are colonized and then persistent source for infection. I have already had multiple discussions with the family and the patient regarding his stones and how there is no way to get him stone free based on the significant volume and his horseshoe kidney. If it is acutely obstructed, then we can place a stent on the right, but treating the stones in the right previously would be a significant undertaking lasting up to 3 to 4 hours ureteroscopically based on the large stone volume, so unless there is documented obstruction on this side, I have not wanted to place a stent. If I did, we would have to change periodically and/or treat all the ureteral stone. For this admission, he was initially feeling worse and had called the office, and I asked to check another sample, but then he started to actually feel better, and his family went on there and came back to find him having fallen on his way to try to go to the bathroom and brought him in. PAST MEDICAL HISTORY: Significant for diabetes, hypertension, hyperlipidemia, asthma, Parkinson's, cardiomyopathy followed by Dr. Shin, diabetes, morbid obesity, and stones. PAST SURGICAL HISTORY: He had a laparoscopic cholecystectomy as well as stent placement in 2014. He had tonsils, pacemaker, retinal detachment procedure, as well as the above-mentioned cystoscopy and circumcision on 04/2018. FAMILY HISTORY: Father at 92 of a heart attack. Mother at 89 with colorectal cancer. Sister had brain cancer. SOCIAL HISTORY: He smoked for 4 years, four pack a day, but quit in . He does not drink or use other drugs. He has occupational and/or physical therapy 2 to 3 times a week. ALLERGIES: NONE. REVIEW OF SYSTEMS: He really had a colonoscopy in March that showed polyps. He is significantly constipated as he has not had bowel movement in 5 days. We reviewed ways to keep this regular and there is concern that his stools do get too loose or have diarrhea if he goes back and forth between that and constipation, so we discussed this in detail. When he came in, he had malaise and fatigue, but no specific pain. Currently, he has no chest pain. No shortness of breath. No cough. No nausea. No vomiting. Does have some dyspepsia. He had no fever, but his temperature was actually lower than normal without any obvious chills. PHYSICAL EXAMINATION: GENERAL: He is lying in the bed comfortably. He is alert and oriented and appropriate. VITAL SIGNS: T-max of 98.7, heart rate in the 80s, blood pressure 110/52, saturating 95% on room air with respiratory rate between 18 and 23. His urine output has been 500mL after approximately 500 originally. NECK: There is no obvious JVD or cervical lymph nodes visible. HEART: Regular rhythm without any obvious murmurs, gallops, or rubs, but has decreased heart sounds overall. LUNGS: Clear to auscultation bilaterally with somewhat limited inspiratory effort. ABDOMEN: Soft, mildly distended with some tenderness in the left upper quadrant , but no peritoneal signs or rebound tenderness with normoactive bowel sounds. : The Benavides was in place draining yellow urine. Testes descended without masses. Penis circumcised/well healed. EXTREMITIES: He had no significant lower extremity edema. LABORATORY DATA: White count came down to 16.9. Creatinine stable at 2.31 despite the contrast he got with the CT. Urinalysis from 07/01/2018 reveals too numerous to count wbc's, 7 to 10 rbc's, rare bacteria, and 0 to 3 squamous cells with culture pending. Unfortunately, there are no recent cultures that are positive, all of them show mixed kayla or minimal colonies. IMAGING STUDIES: CT scan with contrast reviewed personally from 07/01/2018 reveals that the proximal right ureteral stone is now somewhat smaller, so appears to have 2 stones together and 1 of them is dropped lower, so he now has a 1 x 1 cm proximal ureteral stone, which is still at the level of the mid ureter anatomy hill based on his horseshoe kidney, and then, the distal stone is 2.2 cm, but likely 2 stones together to make that up by about 4 x 5 mm. There is no hydronephrosis or hydroureter, and there is a lot of stones in the kidney, but difficult to tell because there was contrast as well. His bladder is decompressed with Benavides and the ureteral stones are seen on volcanology professor. ASSESSMENT: An 87-year-old gentleman with full of multiple stones that are likely colonized and contribute to be the reason for his infections leading to sepsis without any obvious concern for obstruction despite his existing right ureteral stones. The most recent CT scan actually makes the ureteral stones look a little bit more manageable than previous one since there is more distal, but I am still not sure that getting rid of these would be beneficial for him since there is no pain, no obstruction, and he would still be left with countless stones in the kidney that are likely colonized. He is currently improving with just the antibiotic therapy, but I would ask Dr. Alfred get involved for further recommendations for both type and duration. Job ID: [id number] [facility]
[2018-07-02] MEDS: Montelukast Sodium 10 mg Tablet PO SCH (20:06)
[2018-07-02] MEDS: Atorvastatin Calcium 20 MG TAB PO SCH (20:06)
[2018-07-02] MEDS: Tamsulosin HCl 0.4 MG CAP PO SCH (20:06)
[2018-07-03] MEDS: Lactated Ringer's 1,000 ML IV SCH (04:38)
[2018-07-03] MEDS: Piperacillin/Tazobactam 3.375 GM in Sodium Chloride 0.9% 100 ML IVPB SCH (04:38)
[2018-07-03] MEDS: Acetaminophen 325 MG TAB PO PRN ×2 (04:42→20:17)
--- NOTE | 2018-07-03 06:23 | PDOC.FM ---
- Subjective Subjective: Pierre Rowland seen at bedside this morning. He is doing well, family feels like he is closer to his baseline mental status. Several questions were answered for the son today. Patient had no acute events overnight. Dr. Alfred and Dr. Mcknight have seen the patient. Dr. Alfred feels like patient needs to have biopsy of supraclavicular lymph node performed. Patient continues to have some abdominal pain and constipation. He has not had a BM in 5-6 days now. He denies any fever, chills, chest pain, dyspnea, n/v. - Objective MAR Reviewed: Yes Vital Signs & Weight: Vital Signs (12 hours) Temp Pulse Ox 07/03/18 00:00 98.3 F 07/02/18 20:00 98.2 F 95 Weight Admit Weight 96.615 kg Weight 96.9 kg Most Recent Monitor Data Heart Rate from ECG 89 NIBP 90/59 NIBP BP-Mean 69 Respiration from ECG 16 SpO2 96 I&O: 07/01/18 07/02/18 07/03/18 06:59 06:59 06:59 Intake Total 665 120 Output Total 455 1125 Balance 210 -1005 Result Diagrams: 07/03/18 06:37 07/03/18 06:37 Phys Exam - Physical Examination Constitutional: NAD HEENT: sclera anicteric, TM's clear Neck: supple, full ROM Respiratory: no wheezing, no rales, no rhonchi, clear to auscultation bilateral Cardiovascular: RRR, no significant murmur Gastrointestinal: soft, no distention mild ttp, no rigidity or guarding Musculoskeletal: no edema, pulses present Neurological: non-focal, normal sensation, moves all 4 limbs Psychiatric: normal affect, A&O x 3 Skin: no rash Dx/Plan (1) Septic shock Code(s): A41.9 - SEPSIS, UNSPECIFIED ORGANISM; R65.21 - SEVERE SEPSIS WITH SEPTIC SHOCK Status: Resolved (2) UTI (urinary tract infection) Status: Acute Qualifiers: Urinary tract infection type: acute cystitis Hematuria presence: without hematuria Qualified Code(s): N30.00 - Acute cystitis without hematuria (3) Metabolic encephalopathy Code(s): G93.41 - METABOLIC ENCEPHALOPATHY Status: Resolved (4) Acute on chronic renal failure Code(s): N17.9 - ACUTE KIDNEY FAILURE, UNSPECIFIED; N18.9 - CHRONIC KIDNEY DISEASE, UNSPECIFIED Status: Acute Qualifiers: Acute renal failure type: with other specified pathological lesion Chronic kidney disease stage: stage 3 (moderate) Qualified Code(s): N17.8 - Other acute kidney failure; N18.3 - Chronic kidney disease, stage 3 (moderate) (5) Physical deconditioning Code(s): R53.81 - OTHER MALAISE Status: Acute (6) Coronary artery disease Code(s): I25.10 - ATHSCL HEART DISEASE OF [place] CORONARY ARTERY W/O ANG PCTRS Status: Chronic Qualifiers: Coronary Disease-Associated Artery/Lesion type: [place] artery [place] vs. transplanted heart: [place] heart Associated angina: without angina Qualified Code(s): I25.10 - Atherosclerotic heart disease of [place] coronary artery without angina pectoris (7) DM type 2 (diabetes mellitus, type 2) Status: Chronic Qualifiers: Diabetes mellitus longterm insulin use: without longterm use Diabetes mellitus complication status: with unspecified complications Qualified Code(s) : E11.8 - Type 2 diabetes mellitus with unspecified complications (8) Parkinson disease Code(s): G20 - PARKINSON'S DISEASE Status: Chronic (9) Supraclavicular adenopathy Code(s): R59.0 - LOCALIZED ENLARGED LYMPH NODES Status: Acute - Plan Plan: 1. 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 Mcknight consulted, appreciate recs - Dr. Alfred consulted, appreciate recs 2. Metabolic encephalopathy-improving - likely 2/2 UTI, complicated by history of Parkinson's but not at baseline on admission per family - CT head negative, consider MRI if persistent despite tx of #1 3. Acute kidney injury on CKD: showing improvement - known kidney disease, UZMA likely 2/2 septic shock - continue gentle fluids @ 100 mL/hr - repeat BMP in a.m. 4. 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 Alfred consulted, recommended biopsy - ordered placed to IR for biopsy 5. HTN - holding home meds - pt required pressors initially but pressors d/c'd on 07/01/18 - will monitor BP closely 6. DMII - mild SSI - resume home meds when tolerating PO - accuchecks achs 7. CHF - last EF 30-35% earlier this year - no signs fluid overload - gentle fluids - monitor resp status - strict I/Os 8. Chronic a-fib - Cont home eliquis 9. Parkinson's - home meds once tolerating PO 10. HLD - Home meds once tolerating PO Addendum - Attending - Attending Attestation Date/Time: 07/03/18 1105 I personally evaluated the patient and discussed the management with Dr. Longo. I agree with the History, Examination, Assessment and Plan documented above with any addition or exceptions noted below. Patient here for AMS and hypotension with suspicion of Sepsis 2/2 UTI. He is clinically improving and near mental baseline. However, cultures are negative at this time. He is likely colonized with his nephrolithiasis, Urology and ID on board. We will order CT guided biopsy as some unspecified malignancy may be part to blame with his presentation. Large neck node will be attempted. Other labs stable at this time. Continue to monitor and therapy. Xfer from CCU today. Further mgmt per results and specialist recs.
[2018-07-03 06:58] LABS: Hemoglobin 11.4 g/dL (14.0-18.0); Mean Corpuscular HGB CONC 33.9 g/dL (32.0-36.0); Mean Corpuscular Hemoglobin 33.1 pg (27.0-31.0); Mean Corpuscular Volume 97.5 fL (78.0-98.0); Mean Platelet Volume 7.7 fL (7.4-10.4); Platelet Count 125 thou/uL (130-400); RBC Distribution Width 12.9 % (11.5-14.5); Red Blood Cell (RBC) Count 3.45 mill/uL (4.70-6.10); White Blood Cell (WBC) Count 11.6 thou/uL (4.8-10.8)
[2018-07-03 07:06] LABS: Anion Gap 14 mmol/L (10-20); BUN (Urea Nitrogen) 29 mg/dL (8.4-25.7); Calc. Creatinine Clearance 37 mL/min (70-130); Calcium 8.7 mg/dL (7.8-10.44); Carbon Dioxide 19 mmol/L (23-31); Chloride 106 mmol/L (98-107); Estimated GFR-MDRD 32; Glucose 108 mg/dL (83-110); Potassium 3.3 mmol/L (3.5-5.1); Sodium 136 mmol/L (136-145)
[2018-07-03 07:11] LABS: Troponin I 0.133 ng/mL (< 0.028)
[2018-07-03 07:24] LABS: Band 3 % (5-11); Eosinophils 2 % (0-10); Lymphocytes 52 % (21-51); MDiff Complete? YES; Monocytes 7 % (0-10); Neutrophil 35 % (42-75); Platelet Morphology Comment Appears Decreased; RBC Morphology Normal; Reactive Lymphocytes 1 % (0-10)
[2018-07-03] MEDS ORDERED: Carbidopa/Levodopa 25-100 mg Tablet PO SCH (09:00)
--- NOTE | 2018-07-03 09:11 | PRG ---
DATE OF SERVICE: OBJECTIVE: GENERAL: This morning, he is awake, alert, responsive, still weak. VITAL SIGNS: Pulse is 94, blood pressure 100/80, respiratory rate 18, sats are 99%. He is awake, responsive. He is weak. CHEST: Decreased breath sounds, no wheezing. CARDIAC: Normal S1 and S2. No gallops. ABDOMEN: No masses. Creatinine is 1.9, white count 11,000, H and H are 11 and 33, platelet count is normal. Lytes are normal. All cultures so far negative. IMPRESSION: 1. Hypertension. 2. Advanced age. 3. Recurrent urinary tract infection. 4. Benign prostatic hypertrophy. 5. History of asthma. PLAN: All cultures are negative. I would consider deescalating his antibiotics. Continue PT, supportive care, can probably be transferred out of the ICU. Job ID: [id number]
--- NOTE | 2018-07-03 09:54 | PRG ---
DATE OF SERVICE: 07/03/2018 SUBJECTIVE: The patient was sleeping comfortably and admitted to being cold this morning. There were no overnight events. Vital signs have been stable. He has been afebrile with a T-max of 98.7, heart rate in the 80s with a systolic blood pressure in the 90s to 100s, with a respiratory rate of 18, saturating 96% on room air with about 1200 urine output and it is draining yellow and clear. The catheter no longer secured, so I asked the nurses to get a new component for this, but otherwise his general physical exam was unremarkable, but it was quite bothered by elevating the scrotum which is what we should work to maintain, so that he does not have significant scrotal edema. Dr. Alfred' input is greatly appreciated and biopsy of the lymph node in the neck can definitely give helpful information. 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 He does have a history of prostate cancer and his most recent PSA was 0.05 from May 12, so I suspect based on the current imaging and this PSA that there is no concern for significant recurrence of disease from a prostate cancer standpoint. But certainly pathology of any concerning lymph nodes would be helpful. Job ID: [id number] MTDD
[2018-07-03] MEDS: Apixaban 2.5 MG TAB PO SCH ×2 (09:56→20:18)
[2018-07-03] MEDS: Tamsulosin HCl 0.4 MG CAP PO SCH ×2 (09:58→20:17)
[2018-07-03] MEDS: Famotidine 20 MG TAB PO SCH (09:58)
[2018-07-03] MEDS: Finasteride 5 MG TAB PO SCH (09:58)
[2018-07-03] MEDS: Donepezil HCl 5 MG TAB PO SCH (09:58)
[2018-07-03] MEDS: Bicalutamide 50 MG TAB PO SCH (09:58)
[2018-07-03] MEDS: Folic Acid 1 MG TAB PO SCH (09:58)
[2018-07-03] MEDS: Ketoconazole 2% Cream 15 gm Tube TOP SCH ×4 (10:00→20:18)
[2018-07-03] MEDS: Piperacillin/Tazobactam 2.25 GM in Sodium Chloride 0.9% 100 ML IVPB SCH ×3 (12:49→22:14)
[2018-07-03] MEDS: Vancomycin HCl 750 MG in Sodium Chloride 0.9% 250 ML 250 ML IVPB SCH (14:04)
--- NOTE | 2018-07-03 15:53 | PRG ---
DATE OF SERVICE: 07/03/2018 SUBJECTIVE: Mr. Rowland is awake. There is no dyspnea. No chest pain. No abdominal pain. There is an indwelling Benavides catheter, and urinary output was 1100 over the past 24 hours. Slightly positive balance. OBJECTIVE: GENERAL: Chronically-ill appearing. LUNGS: Symmetric air entry. HEART: S1, S2. Regular rate. ABDOMEN: Soft, not distended. LABORATORY DATA: White cell count 11.6, which is improved from admission. Platelets at 125 with 35% neutrophils, 3% bands, 52% lymphocytes. Two sets of blood cultures. Urine culture, no growth at 48 hours. ASSESSMENT AND DISCUSSION: 1. Ischemic cardiomyopathy, biventricular pacemaker with decline in health status over the past few months, episodes of diarrhea, volume depletion, alternating with constipation. 2. Nephrolithiasis with extensive washouts in the past and treatment with antimicrobials, but no positive cultures noted thus far. 3. Fall and hypotension with presumption of sepsis. 4. Abnormal lymph nodes suggestive of metastatic malignancy. The patient is currently on broad-spectrum antimicrobial therapy with piperacillin-tazobactam, vancomycin. The cultures remain negative, although he does have pyuria. If the final culture results are negative, I guess we will have to make a decision regarding the antimicrobials. Probably, will have to continue to be treated with broad-spectrum coverage assuming colonization of the upper tracts. He will need a biopsy of those lymph nodes because of the likelihood of metastatic malignancy, which could be in part be responsible for his clinical presentation. Job ID: [id number]
[2018-07-03] MEDS ORDERED: traMADol HCl 50 MG TAB PO SCH (16:30)
[2018-07-03] MEDS: traMADol HCl 50 MG TAB PO SCH (16:50)
[2018-07-03] MEDS ORDERED: Docusate 100 MG CAP PO PRN (18:56)
[2018-07-03] MEDS ORDERED: Polyethylene Glycol 3350 17 GM Packet PO SCH (19:45)
[2018-07-03] MEDS: Montelukast Sodium 10 mg Tablet PO SCH (20:17)
[2018-07-03] MEDS: Atorvastatin Calcium 20 MG TAB PO SCH (20:17)
[2018-07-03] MEDS: Carbidopa/Levodopa 25-100 mg Tablet PO SCH (20:39)
[2018-07-04] MEDS: Piperacillin/Tazobactam 2.25 GM in Sodium Chloride 0.9% 100 ML IVPB SCH ×2 (05:13→11:57)
--- NOTE | 2018-07-04 06:21 | PDOC.FM ---
Addendum entered and electronically signed by Dawson Longo MD 07/04/18 10:51: Dr. Alfred recommended biopsy of new supraclavicular lymphadenopathy. Dr. Madrigal recommended excisional biopsy by General Surgery. Dr. Briggs consulted, saw the patient, and recommended that patient have US guided core needle biopsy performed. Order placed for US guided biopsy. Patient's Eliquis was held after morning dose on 07/03/18. Original Note: - Subjective Subjective: Pierre Rowland seen at bedside this morning. Did not have BM with enema yesterday , did have large BM with lactulose this morning. He is influenza B positive. He has shown improvement since admission but family does not feel like he is at his baseline mental status yet. He still complains of vague diffuse abdominal pain. Denies fever, chills, chest pain, dyspnea, n/v. Family is adamant about having lymph node biopsy done during hospitalization. - Objective MAR Reviewed: Yes Vital Signs & Weight: Weight Admit Weight 96.615 kg Weight 96.9 kg Most Recent Monitor Data Heart Rate from ECG 89 NIBP 106/47 NIBP BP-Mean 66 Respiration from ECG 19 SpO2 94 I&O: 07/02/18 07/03/18 07/04/18 06:59 06:59 06:59 Intake Total 665 1244 1583 Output Total 455 1150 420 Balance 811 38 9410 Result Diagrams: 07/03/18 06:37 07/03/18 06:37 Phys Exam - Physical Examination Constitutional: NAD HEENT: moist MMs, sclera anicteric Neck: supple, full ROM Respiratory: no wheezing, no rales, no rhonchi, clear to auscultation bilateral Cardiovascular: RRR, no significant murmur Gastrointestinal: soft, no distention mild ttp in LUQ and suprapubic areas Musculoskeletal: no edema, pulses present Neurological: non-focal, normal sensation, moves all 4 limbs Psychiatric: A&O x 3 Skin: no rash Dx/Plan (1) Septic shock Code(s): A41.9 - SEPSIS, UNSPECIFIED ORGANISM; R65.21 - SEVERE SEPSIS WITH SEPTIC SHOCK Status: Resolved (2) UTI (urinary tract infection) Status: Acute Qualifiers: Urinary tract infection type: acute cystitis Hematuria presence: without hematuria Qualified Code(s): N30.00 - Acute cystitis without hematuria (3) Metabolic encephalopathy Code(s): G93.41 - METABOLIC ENCEPHALOPATHY Status: Resolved (4) Acute on chronic renal failure Code(s): N17.9 - ACUTE KIDNEY FAILURE, UNSPECIFIED; N18.9 - CHRONIC KIDNEY DISEASE, UNSPECIFIED Status: Acute Qualifiers: Acute renal failure type: with other specified pathological lesion Chronic kidney disease stage: stage 3 (moderate) Qualified Code(s): N17.8 - Other acute kidney failure; N18.3 - Chronic kidney disease, stage 3 (moderate) (5) Physical deconditioning Code(s): R53.81 - OTHER MALAISE Status: Acute (6) Coronary artery disease Code(s): I25.10 - ATHSCL HEART DISEASE OF [place] CORONARY ARTERY W/O ANG PCTRS Status: Chronic Qualifiers: Coronary Disease-Associated Artery/Lesion type: [place] artery [place] vs. transplanted heart: [place] heart Associated angina: without angina Qualified Code(s): I25.10 - Atherosclerotic heart disease of [place] coronary artery without angina pectoris (7) DM type 2 (diabetes mellitus, type 2) Status: Chronic Qualifiers: Diabetes mellitus detention insulin use: without detention use Diabetes mellitus complication status: with unspecified complications Qualified Code(s) : E11.8 - Type 2 diabetes mellitus with unspecified complications (8) Parkinson disease Code(s): G20 - PARKINSON'S DISEASE Status: Chronic (9) Supraclavicular adenopathy Code(s): R59.0 - LOCALIZED ENLARGED LYMPH NODES Status: Acute - Plan Plan: 1. 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 Mcknight consulted, appreciate recs - Dr. Alfred consulted, appreciate recs 2. Metabolic encephalopathy-improving - likely 2/2 UTI, complicated by history of Parkinson's but not at baseline on admission per family - CT head negative, consider MRI if persistent despite tx of #1 3. Acute kidney injury on CKD: showing improvement - known kidney disease, UZMA likely 2/2 septic shock - continue gentle fluids @ 100 mL/hr - repeat BMP in a.m. 4. 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 Alfred consulted, recommended biopsy - Consulted Gen Surg, Dr. Briggs, for excision. - will need to hold eliquis for 2 days 5. HTN - holding home meds - pt required pressors initially but pressors d/c'd on 07/01/18 - will monitor BP closely 6. DMII - mild SSI - resume home meds when tolerating PO - accuchecks achs 7. CHF - last EF 30-35% earlier this year - no signs fluid overload - gentle fluids - monitor resp status - strict I/Os 8. Chronic a-fib - Cont home eliquis 9. Parkinson's - home meds once tolerating PO 10. HLD - Home meds once tolerating PO Addendum - Attending - Attending Attestation Date/Time: 07/04/18 1103 I personally evaluated the patient and discussed the management with Dr. Longo. I agree with the History, Examination, Assessment and Plan documented above with any addition or exceptions noted below. Patient here for initial presumed AMS from sepsis 2/2 UTI with negative growing cultures. There is some concern now that his presentation may be due to either UTI in the setting of chronic nephrolithiasis or malignancy. We are working to determine the best approach to biopsy that will be least invasive but give best results. Do not suspect fungal infection as the family suggests but will appreciate Uro and ID input on this. Mentation at baseline. He has tested positive for Influenza B which could also result in his initial presentation.
[2018-07-04] MEDS: Acetaminophen 325 MG TAB PO PRN (08:05)
[2018-07-04] MEDS: Finasteride 5 MG TAB PO SCH (09:20)
[2018-07-04] MEDS: Bicalutamide 50 MG TAB PO SCH (09:20)
[2018-07-04] MEDS: Carbidopa/Levodopa 25-100 mg Tablet PO SCH ×3 (09:20→21:36)
[2018-07-04] MEDS: Donepezil HCl 5 MG TAB PO SCH (09:20)
[2018-07-04] MEDS: Famotidine 20 MG TAB PO SCH (09:20)
[2018-07-04] MEDS: Tamsulosin HCl 0.4 MG CAP PO SCH ×2 (09:20→21:35)
[2018-07-04] MEDS: Folic Acid 1 MG TAB PO SCH (09:20)
[2018-07-04] MEDS: Oseltamivir 75 MG CAP PO SCH ×2 (09:21→21:37)
[2018-07-04] MEDS: Polyethylene Glycol 3350 17 GM Packet PO SCH (09:21)
--- NOTE | 2018-07-04 10:09 | PRG ---
DATE OF SERVICE: 07/04/2018 SUBJECTIVE: This morning, he is better. OBJECTIVE: VITAL SIGNS: Saturations are 92% on room air, respiratory rate temperature 97, and blood pressure 148/74. CHEST: Decreased breath sounds. No wheezing. CARDIAC: Normal S1 and S2. No gallops. ABDOMEN: No masses. IMPRESSION: 1. Recurrent urinary tract infection. 2. Hypotension, resolved. 3. Left supraclavicular lymph node enlargement. PLAN: Family wants to have a biopsy. Best option is to remove the entire lymph node under local. I would consider a surgical consultation. Otherwise, Tamiflu for his influenza B. Pulmonary will follow at a distance. Please call if needed. Job ID: [id number]
[2018-07-04] MEDS: Ketoconazole 2% Cream 15 gm Tube TOP SCH ×2 (11:56→21:36)
--- NOTE | 2018-07-04 12:43 | PRG ---
DATE OF SERVICE: 07/04/2018 SUBJECTIVE: The patient did well overnight. He is more awake and alert today. He did have a bowel movement after lactulose. The abdominal pain is still present in the left upper quadrant, but may be somewhat better. OBJECTIVE: He has been afebrile with T-max 97.9, blood pressure 148/76, saturating 92% on room air with respiratory rate of 20, had about 900 out. On exam, his abdomen is soft, nondistended, tenderness in the left upper quadrant, but without any rebound tenderness and no tenderness to percussion or concern for peritoneal signs. His Benavides catheter is secured and draining yellow urine. We discussed getting that out. No new labs for today. There was discussion of doing a biopsy of his lymph nodes in his neck, and General Surgery was consulted. They recommended having IR to do instead, so that this is still in process. Dr. Alfred, by report, has recommended stopping antibiotics at this time and monitoring. ASSESSMENT: We have an 87-year-old gentleman, admitted with initial concerns for urosepsis. However, now more concern for flu and some other systemic process, possibly exacerbating that with some cervical lymph nodes that will likely be biopsied in the near future. I would remove his catheter and monitor his I's and O's, and continue tamsulosin twice a day and finasteride for now. Job ID: [id number] MTDD
[2018-07-04 14:29] LABS: Vancomycin, Trough 9.3 ug/mL
[2018-07-04] MEDS: Montelukast Sodium 10 mg Tablet PO SCH (21:35)
[2018-07-04] MEDS: Atorvastatin Calcium 20 MG TAB PO SCH (21:35)
[2018-07-04] MEDS: Refresh Lacri-lube Opth Oint 7 GM TUBE L EYE SCH (21:40)
--- NOTE | 2018-07-05 06:23 | PDOC.FM ---
- Subjective Subjective: Pierre Rowland seen at bedside this morning. He has no complaints and there were no acute events overnight. He had multiple BMs yesterday. States he is feeling much better. He denies fever, chills, chest pain, dyspnea, myalgias, n/ v. He is scheduled for US guided lymph node biopsy today and will be clear for discharge afterwards with follow up with his PCP. - Objective MAR Reviewed: Yes Vital Signs & Weight: Vital Signs (12 hours) Temp Pulse Resp BP Pulse Ox 07/04/18 20:10 98.3 F 78 20 130/78 93 L Weight Admit Weight 96.615 kg Weight 96.9 kg Most Recent Monitor Data Heart Rate from ECG 89 NIBP 106/47 NIBP BP-Mean 66 Respiration from ECG 19 SpO2 94 I&O: 07/03/18 07/04/18 07/05/18 06:59 06:59 06:59 Intake Total 1244 2183 Output Total 1150 920 Balance 94 1263 Result Diagrams: 07/05/18 07:03 07/05/18 07:03 Phys Exam - Physical Examination Constitutional: NAD HEENT: moist MMs, sclera anicteric Neck: no JVD, supple, full ROM Respiratory: no rales, no rhonchi, clear to auscultation bilateral very mild end expiratory wheezing Cardiovascular: RRR, no significant murmur Gastrointestinal: soft, non-tender, no distention Musculoskeletal: no edema, pulses present Neurological: non-focal, normal sensation, moves all 4 limbs Psychiatric: normal affect, A&O x 3 Dx/Plan (1) Septic shock Code(s): A41.9 - SEPSIS, UNSPECIFIED ORGANISM; R65.21 - SEVERE SEPSIS WITH SEPTIC SHOCK Status: Resolved (2) UTI (urinary tract infection) Status: Acute Qualifiers: Urinary tract infection type: acute cystitis Hematuria presence: without hematuria Qualified Code(s): N30.00 - Acute cystitis without hematuria (3) Metabolic encephalopathy Code(s): G93.41 - METABOLIC ENCEPHALOPATHY Status: Resolved (4) Acute on chronic renal failure Code(s): N17.9 - ACUTE KIDNEY FAILURE, UNSPECIFIED; N18.9 - CHRONIC KIDNEY DISEASE, UNSPECIFIED Status: Acute Qualifiers: Acute renal failure type: with other specified pathological lesion Chronic kidney disease stage: stage 3 (moderate) Qualified Code(s): N17.8 - Other acute kidney failure; N18.3 - Chronic kidney disease, stage 3 (moderate) (5) Physical deconditioning Code(s): R53.81 - OTHER MALAISE Status: Acute (6) Coronary artery disease Code(s): I25.10 - ATHSCL HEART DISEASE OF [place] CORONARY ARTERY W/O ANG PCTRS Status: Chronic Qualifiers: Coronary Disease-Associated Artery/Lesion type: [place] artery [place] vs. transplanted heart: [place] heart Associated angina: without angina Qualified Code(s): I25.10 - Atherosclerotic heart disease of [place] coronary artery without angina pectoris (7) DM type 2 (diabetes mellitus, type 2) Status: Chronic Qualifiers: Diabetes mellitus mcfp insulin use: without long wall mining machine helper use Diabetes mellitus complication status: with unspecified complications Qualified Code(s) : E11.8 - Type 2 diabetes mellitus with unspecified complications (8) Parkinson disease Code(s): G20 - PARKINSON'S DISEASE Status: Chronic (9) Supraclavicular adenopathy Code(s): R59.0 - LOCALIZED ENLARGED LYMPH NODES Status: Acute - Plan Plan: 1. 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 Mcknight consulted, appreciate recs - Dr. Alfred consulted, appreciate recs 2. Metabolic encephalopathy-improving - likely 2/2 UTI, complicated by history of Parkinson's but not at baseline on admission per family - CT head negative, consider MRI if persistent despite tx of #1 3. Acute kidney injury on CKD: showing improvement - known kidney disease, UZMA likely 2/2 septic shock - continue gentle fluids @ 100 mL/hr - repeat BMP in a.m. 4. 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 Tima consulted, recommended biopsy - Consulted Gen Surg, Dr. Briggs, for excision. - will need to hold eliquis for 2 days - US guided LN biopsy today 5. HTN - holding home meds - pt required pressors initially but pressors d/c'd on 07/01/18 - will monitor BP closely 6. DMII - mild SSI - resume home meds when tolerating PO - accuchecks achs 7. CHF - last EF 30-35% earlier this year - no signs fluid overload - gentle fluids - monitor resp status - strict I/Os 8. Chronic a-fib - Cont home eliquis 9. Parkinson's - home meds once tolerating PO 10. HLD - Home meds once tolerating PO Dispo: patient will be clear for discharge after lymph node biopsy today Addendum - Attending - Attending Attestation Date/Time: 07/05/18 1008 I personally evaluated the patient and discussed the management with Dr. Longo. I agree with the History, Examination, Assessment and Plan documented above with any addition or exceptions noted below. Patient stable. Did not do well on PT eval and discussing with family the options for placement outside of hospital. Cultures negative and ID apparently not recommending long wall mining machine helper abx. This presentation could be due to influenza, deconditioning, infection, or malignancy among other things and likely multifactorial. He is overall at baseline. Going today for biopsy and will likely follow up with that as outpatient. Continue therapy and work on placement decision with family but likely nearing stability for discharge though will need further follow up outpatient with Urology as he has in the past.
[2018-07-05 08:11] LABS: Anion Gap 11 mmol/L (10-20); BUN (Urea Nitrogen) 19 mg/dL (8.4-25.7); Calc. Creatinine Clearance 50 mL/min (70-130); Calcium 8.8 mg/dL (7.8-10.44); Carbon Dioxide 22 mmol/L (23-31); Chloride 110 mmol/L (98-107); Estimated GFR-MDRD 46; Glucose 90 mg/dL (83-110); Potassium 3.2 mmol/L (3.5-5.1); Sodium 140 mmol/L (136-145)
[2018-07-05 08:28] LABS: Hemoglobin 11.4 g/dL (14.0-18.0); Mean Corpuscular HGB CONC 33.5 g/dL (32.0-36.0); Mean Corpuscular Hemoglobin 32.7 pg (27.0-31.0); Mean Corpuscular Volume 97.5 fL (78.0-98.0); Mean Platelet Volume 7.7 fL (7.4-10.4); Platelet Count 165 thou/uL (130-400); Red Blood Cell (RBC) Count 3.49 mill/uL (4.70-6.10); White Blood Cell (WBC) Count 9.9 thou/uL (4.8-10.8)
[2018-07-05 08:44] LABS: Band 2 % (5-11); Eosinophils 3 % (0-10); Lymphocytes 52 % (21-51); MDiff Complete? YES; Monocytes 6 % (0-10); Neutrophil 37 % (42-75); RBC Morphology Normal
[2018-07-05] MEDS: Bicalutamide 50 MG TAB PO SCH (08:50)
[2018-07-05] MEDS: Saccharomyces boulardii 250 MG CAP PO SCH (08:50)
[2018-07-05] MEDS: Finasteride 5 MG TAB PO SCH (08:50)
[2018-07-05] MEDS: Oseltamivir 75 MG CAP PO SCH ×2 (08:51→20:15)
[2018-07-05] MEDS: Ketoconazole 2% Cream 15 gm Tube TOP SCH ×2 (08:51→20:16)
[2018-07-05] MEDS: Carbidopa/Levodopa 25-100 mg Tablet PO SCH ×3 (08:51→20:15)
[2018-07-05] MEDS: Donepezil HCl 5 MG TAB PO SCH (08:51)
[2018-07-05] MEDS: Tamsulosin HCl 0.4 MG CAP PO SCH ×2 (08:51→20:15)
[2018-07-05] MEDS: Famotidine 20 MG TAB PO SCH (08:51)
[2018-07-05] MEDS: Folic Acid 1 MG TAB PO SCH (08:51)
[2018-07-05] MEDS: Refresh Lacri-lube Opth Oint 7 GM TUBE L EYE SCH ×2 (08:51→20:15)
[2018-07-05] MEDS: Polyethylene Glycol 3350 17 GM Packet PO SCH (08:54)
[2018-07-05] MEDS: Acetaminophen 325 MG TAB PO PRN (09:31)
--- NOTE | 2018-07-05 14:00 | EKG ---
Test Reason : Blood Pressure : / mmHG Vent. Rate : 094 BPM Atrial Rate : 033 BPM P-R Int : 000 ms QRS Dur : 168 ms QT Int : 546 ms P-R-T Axes : 000 -26 031 degrees QTc Int : 682 ms AV sequential or dual chamber electronic pacemaker Confirmed by NELI ARROYO MD ([id number]), scientific editor PATRICIA EVANS ([id number] on 07/05/2018 1:59:47 PM Referred By: Confirmed By:NELI ARROYO MD
[2018-07-05] MEDS ORDERED: Lidocaine 1% PF 5 ML VIAL ONE (14:29)
[2018-07-05] MEDS ORDERED: Sodium Bicarbonate 2.5 MEQ/5 ML VIAL ONE (14:29)
--- NOTE | 2018-07-05 15:05 | PRG ---
DATE OF SERVICE: 07/05/2018 SUBJECTIVE: The patient looks significantly better today and is smiling, happy self. He is trying to eat breakfast when I walked in. He has no complaints. He had multiple bowel movements, and he feels significantly better with respect to his abd pain. Benavides was removed previously and he has had no trouble with voiding. OBJECTIVE: VITAL SIGNS: His vitals have been stable. T-max 97.9, saturating 92% on room air with respiratory rate 20, and blood pressure 148/76. "urinal" GENERAL: He looks comfortable in the bed, is trying to eat, but is slouched down and cramped in the bed. ABDOMEN: Soft, nondistended, and nontender. I laid the bed down, helped to move up and then set him up normally. He was able to eat much more readily. LABORATORY DATA: White count down to 9.9, creatinine down to 1.47. Urine culture has been negative, other as previously dictated. His influenza type came back for B antigen. ASSESSMENT: An 87-year-old gentleman admitted with initially concerns for urosepsis, but now the concern is the flu exacerbated by potentially another systemic process that may or may not be related to enlarged cervical lymph nodes. I would continue tamsulosin twice a day and finasteride once a day, but antibiotics per Dr. Alfred' recommendations, which he is said to stop at this time. The plan is, once his lymph nodes are biopsied, he will be able to be discharged home and await the pathology reports to be followed up as an outpatient. For me, he already has followup set up and should keep this. Job ID: [id number] [facility]
--- NOTE | 2018-07-05 16:12 | ULT ---
ULTRASOUND GUIDED FINE NEEDLE ASPIRATION LEFT CERVICAL LYMPHADENOPATHY 07/05/18 HISTORY: Nonspecific new supraclavicular lymphadenopathy. FINDINGS: Informed consent obtained prior to the procedure. Preprocedural imaging demonstrates numerous enlarge d lymph nodes in the supraclavicular region/posterior triangle on the left. Skin overlying left cervical adenopathy prepped and draped in the normal sterile fashion. Two fine ne edle aspirations were obtained using an 18 gauge needle. Specimen was given to the pathologist at the bedside. He reports sarah tissue in the provided specimen. Patient tolerated the procedure well. No postprocedural bleeding noted. IMPRESSION: Successful fine needle aspiration of left cervical lymphadenopathy utilizing 18 gauge needle. POS: [facility]
[2018-07-05] MEDS: Atorvastatin Calcium 20 MG TAB PO SCH (20:15)
[2018-07-05] MEDS: Montelukast Sodium 10 mg Tablet PO SCH (20:16)
--- NOTE | 2018-07-06 06:35 | PDOC.FM ---
- Subjective Subjective: Mr. Rowland is resting comfortably in bed, he reports abdominal pain along his left side, but denies fever/chills - Objective Vital Signs & Weight: Vital Signs (12 hours) Temp Pulse Resp BP Pulse Ox 07/06/18 00:00 98.2 F 80 20 131/68 92 L 07/05/18 19:14 98.1 F 65 20 127/70 93 L Weight Admit Weight 96.615 kg Weight 96.9 kg Most Recent Monitor Data Heart Rate from ECG 89 NIBP 106/47 NIBP BP-Mean 66 Respiration from ECG 19 SpO2 94 I&O: 07/04/18 07/05/18 07/06/18 06:59 06:59 06:59 Intake Total 2183 Output Total 920 Balance 1263 Result Diagrams: 07/05/18 07:03 07/05/18 07:03 Phys Exam - Physical Examination Constitutional: NAD HEENT: moist MMs Neck: no nodes Respiratory: clear to auscultation bilateral Cardiovascular: RRR, no significant murmur Gastrointestinal: soft, non-tender Musculoskeletal: no edema, pulses present Neurological: non-focal, moves all 4 limbs Psychiatric: normal affect Skin: no rash Dx/Plan (1) Septic shock Code(s): A41.9 - SEPSIS, UNSPECIFIED ORGANISM; R65.21 - SEVERE SEPSIS WITH SEPTIC SHOCK Status: Resolved (2) Metabolic encephalopathy Code(s): G93.41 - METABOLIC ENCEPHALOPATHY Status: Resolved (3) Acute on chronic renal failure Code(s): N17.9 - ACUTE KIDNEY FAILURE, UNSPECIFIED; N18.9 - CHRONIC KIDNEY DISEASE, UNSPECIFIED Status: Acute Qualifiers: Acute renal failure type: with other specified pathological lesion Chronic kidney disease stage: stage 3 (moderate) Qualified Code(s): N17.8 - Other acute kidney failure; N18.3 - Chronic kidney disease, stage 3 (moderate) (4) Chronic systolic congestive heart failure, NYHA class 3 Code(s): I50.22 - CHRONIC SYSTOLIC (CONGESTIVE) HEART FAILURE Status: Chronic (5) DM type 2 (diabetes mellitus, type 2) Status: Chronic Qualifiers: Diabetes mellitus mcfp insulin use: without termite control service representative use Diabetes mellitus complication status: with unspecified complications Qualified Code(s) : E11.8 - Type 2 diabetes mellitus with unspecified complications (6) Dyslipidemia Code(s): E78.5 - HYPERLIPIDEMIA, UNSPECIFIED Status: Chronic (7) H/O prostate cancer Code(s): Z85.46 - PERSONAL HISTORY OF MALIGNANT NEOPLASM OF PROSTATE Status: Chronic (8) HTN (hypertension) Code(s): I10 - ESSENTIAL (PRIMARY) HYPERTENSION Status: Chronic Qualifiers: Hypertension type: essential hypertension Qualified Code(s): I10 - Essential (primary) hypertension (9) Nephrolithiasis Status: Chronic (10) Parkinson disease Code(s): G20 - PARKINSON'S DISEASE Status: Chronic - Plan Plan: 1. 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 Mcknight consulted, appreciate recs - Dr. Alfred consulted, appreciate recs 2. Metabolic encephalopathy-improving - likely 2/2 UTI, complicated by history of Parkinson's but not at baseline on admission per family - CT head negative, consider MRI if persistent despite tx of #1 3. Acute kidney injury on CKD: showing improvement - known kidney disease, UZMA likely 2/2 septic shock - continue gentle fluids @ 100 mL/hr - repeat BMP in a.m. 4. 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 Alfred consulted, recommended biopsy - Consulted Gen Surg, Dr. Briggs, for excision. - will need to hold eliquis for 2 days - US guided LN biopsy 5. HTN - holding home meds - pt required pressors initially but pressors d/c'd on 07/01/18 - will monitor BP closely 6. DMII - mild SSI - resume home meds - accuchecks achs 7. CHF - last EF 30-35% earlier this year - no signs fluid overload - gentle fluids - monitor resp status - strict I/Os 8. Chronic a-fib - Cont home eliquis 9. Parkinson's - home meds once tolerating PO 10. HLD - Home meds once tolerating PO Dispo: re-evaluate home situation, possible need for SNF placement Addendum - Attending - Attending Attestation Date/Time: 07/06/18 1016 I personally evaluated the patient and discussed the management with Dr. Mcneill. I agree with the History, Examination, Assessment and Plan documented above with any addition or exceptions noted below. The patient had a biopsy yesterday. Results are pending. No family at bedside. Pt has mild left sided abdominal pain but tells me that this always hurts. Will try to discuss discharge planning with case management.
[2018-07-06] MEDS: Oseltamivir 75 MG CAP PO SCH ×2 (08:16→20:56)
[2018-07-06] MEDS: Saccharomyces boulardii 250 MG CAP PO SCH (08:18)
[2018-07-06] MEDS: Finasteride 5 MG TAB PO SCH (08:18)
[2018-07-06] MEDS: Folic Acid 1 MG TAB PO SCH (08:18)
[2018-07-06] MEDS: Famotidine 20 MG TAB PO SCH (08:18)
[2018-07-06] MEDS: Tamsulosin HCl 0.4 MG CAP PO SCH ×2 (08:18→20:56)
[2018-07-06] MEDS: Donepezil HCl 5 MG TAB PO SCH (08:19)
[2018-07-06] MEDS: Bicalutamide 50 MG TAB PO SCH (08:20)
[2018-07-06] MEDS: Carbidopa/Levodopa 25-100 mg Tablet PO SCH ×3 (08:21→20:56)
[2018-07-06] MEDS: Ketoconazole 2% Cream 15 gm Tube TOP SCH ×2 (08:21→20:57)
[2018-07-06] MEDS: Polyethylene Glycol 3350 17 GM Packet PO SCH (08:22)
[2018-07-06] MEDS: Acetaminophen 325 MG TAB PO PRN (08:28)
[2018-07-06] MEDS: Potassium Chloride 20 MEQ TAB PO SCH ×2 (08:35→16:17)
[2018-07-06] MEDS: SYSTANE 3.5 GM TUBE L EYE SCH ×2 (12:21→20:57)
[2018-07-06] MEDS: Atorvastatin Calcium 20 MG TAB PO SCH (20:56)
[2018-07-06] MEDS: Montelukast Sodium 10 mg Tablet PO SCH (20:56)
--- NOTE | 2018-07-07 06:56 | PDOC.FM ---
- Subjective Subjective: Mr. Rowland is resting comfortably in bed, he reports improved abdominal pain today. no fever/chills - Objective Vital Signs & Weight: Vital Signs (12 hours) Pulse Ox 07/06/18 20:00 92 L Weight Admit Weight 96.615 kg Weight 96.9 kg Most Recent Monitor Data Heart Rate from ECG 89 NIBP 106/47 NIBP BP-Mean 66 Respiration from ECG 19 SpO2 94 I&O: 07/05/18 07/06/18 07/07/18 06:59 06:59 06:59 Intake Total 900 Output Total 800 Balance 100 Result Diagrams: 07/07/18 07:26 07/07/18 07:26 Phys Exam - Physical Examination Constitutional: NAD HEENT: moist MMs Respiratory: clear to auscultation bilateral Cardiovascular: RRR, no significant murmur Gastrointestinal: soft, non-tender, no distention Musculoskeletal: no edema Neurological: moves all 4 limbs Skin: no rash Dx/Plan (1) Septic shock Code(s): A41.9 - SEPSIS, UNSPECIFIED ORGANISM; R65.21 - SEVERE SEPSIS WITH SEPTIC SHOCK Status: Resolved (2) Metabolic encephalopathy Code(s): G93.41 - METABOLIC ENCEPHALOPATHY Status: Resolved (3) Acute on chronic renal failure Code(s): N17.9 - ACUTE KIDNEY FAILURE, UNSPECIFIED; N18.9 - CHRONIC KIDNEY DISEASE, UNSPECIFIED Status: Acute Qualifiers: Acute renal failure type: with other specified pathological lesion Chronic kidney disease stage: stage 3 (moderate) Qualified Code(s): N17.8 - Other acute kidney failure; N18.3 - Chronic kidney disease, stage 3 (moderate) (4) Chronic systolic congestive heart failure, NYHA class 3 Code(s): I50.22 - CHRONIC SYSTOLIC (CONGESTIVE) HEART FAILURE Status: Chronic (5) DM type 2 (diabetes mellitus, type 2) Status: Chronic Qualifiers: Diabetes mellitus trip motor operator insulin use: without trip motor operator use Diabetes mellitus complication status: with unspecified complications Qualified Code(s) : E11.8 - Type 2 diabetes mellitus with unspecified complications (6) Dyslipidemia Code(s): E78.5 - HYPERLIPIDEMIA, UNSPECIFIED Status: Chronic (7) H/O prostate cancer Code(s): Z85.46 - PERSONAL HISTORY OF MALIGNANT NEOPLASM OF PROSTATE Status: Chronic (8) HTN (hypertension) Code(s): I10 - ESSENTIAL (PRIMARY) HYPERTENSION Status: Chronic Qualifiers: Hypertension type: essential hypertension Qualified Code(s): I10 - Essential (primary) hypertension (9) Nephrolithiasis Status: Chronic (10) Parkinson disease Code(s): G20 - PARKINSON'S DISEASE Status: Chronic - Plan Plan: Septic shock (resolved) 2/2 UTI - s/p 3L NS in ED, persistent hypotension, briefly on Levo ggt, discontinued on 07/01/18 - cultures negative DC Vanc/Zosyn - significant stone burden on CT, horseshoe kidney, 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 Mcknight consulted, appreciate recs - Dr. 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 Alfred consulted, recommended biopsy - US guided LN biopsy, results pending HTN - holding home meds - pt required pressors initially but pressors d/c'd on 07/01/18 - will monitor BP closely DMII - mild SSI - resume home meds - accuchecks achs CHF - last EF 30-35% earlier this year - no signs fluid overload - monitor resp status - strict I/Os Chronic a-fib - Cont home eliquis Parkinson's - home meds once tolerating PO HLD - Home meds once tolerating PO Dispo: awaiting placement Addendum - Attending - Attending Attestation Date/Time: 07/07/18 1212 I personally evaluated the patient and discussed the management with Dr. Mcneill. I agree with the History, Examination, Assessment and Plan documented above with any addition or exceptions noted below. Abdominal pain is improved. Biopsy results are pending. Pt is doing well s/p flu diagnosis. Waiting on placement.
[2018-07-07 08:11] LABS: ALT (SGPT) Less than 7 U/L (8-55); AST (SGOT) 13 U/L (5-34); Albumin 2.7 g/dL (3.4-4.8); Alkaline Phosphatase 49 U/L (40-150); Anion Gap 10 mmol/L (10-20); BUN (Urea Nitrogen) 19 mg/dL (8.4-25.7); Bilirubin, Total 0.4 mg/dL (0.2-1.2); Calc. Creatinine Clearance 49 mL/min (70-130); Calcium 8.8 mg/dL (7.8-10.44); Carbon Dioxide 24 mmol/L (23-31); Chloride 113 mmol/L (98-107); Estimated GFR-MDRD 44; Globulin 2.4 g/dL (2.4-3.5); Glucose 105 mg/dL (83-110); Potassium 3.7 mmol/L (3.5-5.1); Protein, Total 5.1 g/dL (5.8-8.1); Sodium 143 mmol/L (136-145)
[2018-07-07] MEDS: Tamsulosin HCl 0.4 MG CAP PO SCH ×2 (08:15→22:03)
[2018-07-07] MEDS: Famotidine 20 MG TAB PO SCH (08:15)
[2018-07-07] MEDS: Potassium Chloride 20 MEQ TAB PO SCH ×2 (08:16→16:40)
[2018-07-07] MEDS: Donepezil HCl 5 MG TAB PO SCH (08:16)
[2018-07-07] MEDS: Saccharomyces boulardii 250 MG CAP PO SCH (08:16)
[2018-07-07] MEDS: Folic Acid 1 MG TAB PO SCH (08:16)
[2018-07-07] MEDS: Bicalutamide 50 MG TAB PO SCH (08:17)
[2018-07-07] MEDS: Finasteride 5 MG TAB PO SCH (08:17)
[2018-07-07] MEDS: Ketoconazole 2% Cream 15 gm Tube TOP SCH ×2 (08:18→20:45)
[2018-07-07] MEDS: Oseltamivir 75 MG CAP PO SCH ×2 (08:18→20:44)
[2018-07-07] MEDS: Carbidopa/Levodopa 25-100 mg Tablet PO SCH ×3 (08:19→20:45)
[2018-07-07] MEDS: Polyethylene Glycol 3350 17 GM Packet PO SCH (08:21)
[2018-07-07] MEDS: SYSTANE 3.5 GM TUBE L EYE SCH ×2 (08:21→21:17)
[2018-07-07] MEDS: Apixaban 2.5 MG TAB PO SCH ×2 (08:21→20:45)
[2018-07-07] MEDS: Acetaminophen 325 MG TAB PO PRN (08:22)
[2018-07-07 08:51] LABS: Eosinophils 4 % (0-10); Hemoglobin 11.2 g/dL (14.0-18.0); Lymphocytes 15 % (21-51); MDiff Complete? YES; Mean Corpuscular HGB CONC 33.7 g/dL (32.0-36.0); Mean Platelet Volume 6.8 fL (7.4-10.4); Microcytosis MODERATE=15-30 cells (100X) (0-5/hpf); Monocytes 8 % (0-10); Neutrophil 54 % (42-75); Platelet Count 201 thou/uL (130-400); Platelet Morphology Comment Appears Adequate; Polychromasia SLIGHT = 2-3 cells (100X) (0-2/hpf); RBC Distribution Width 12.9 % (11.5-14.5); Reactive Lymphocytes 19 % (0-10); Red Blood Cell (RBC) Count 3.38 mill/uL (4.70-6.10); White Blood Cell (WBC) Count 9.7 thou/uL (4.8-10.8)
[2018-07-07 17:08] LABS: Bilirubin Negative (Negative); Blood, Urine Large (Negative); Clarity CLOUDY (Clear); Glucose, Urine (Dipstick) Negative (Negative); Leukocyte Small (Negative); Nitrite Negative (Negative); Protein, Urine (Dipstick) 30 mg/dL (Neg-Trace); Urobilinogen 0.2 mg/dL (0.2-1.0)
[2018-07-07 17:10] LABS: Bacteria/HPF None Seen HPF (None Seen); Hyaline Casts/LPF 0-3 HYALINE CAST LPF (0-3 Hyaline); Pathc Cast-AUWi Flag 0.72 (0-2.49); RBC/HPF GREATER THAN 50-TNTC HPF (0-3); Squamous Epithelial 0-3 HPF (0-3); WBC/HPF 0-3 HPF (0-3)
[2018-07-07] MEDS: Montelukast Sodium 10 mg Tablet PO SCH (20:44)
[2018-07-07] MEDS: Atorvastatin Calcium 20 MG TAB PO SCH (20:44)
[2018-07-07] MEDS: Nystatin Powder 15 GM BOT TOP SCH (20:46)
--- NOTE | 2018-07-08 06:19 | PDOC.FM ---
- Subjective Subjective: No events overnight. Patient has no complaints or concerns. - Objective Vital Signs & Weight: Vital Signs (12 hours) Temp Pulse Resp BP Pulse Ox 07/07/18 20:05 98.4 F 88 18 138/78 94 L Weight Admit Weight 96.615 kg Weight 96.9 kg Most Recent Monitor Data Heart Rate from ECG 89 NIBP 106/47 NIBP BP-Mean 66 Respiration from ECG 19 SpO2 94 I&O: 07/06/18 07/07/18 07/08/18 06:59 06:59 06:59 Intake Total 900 1200 Output Total 800 1000 Balance 100 200 Result Diagrams: 07/08/18 06:01 07/08/18 06:01 Phys Exam - Physical Examination Constitutional: NAD HEENT: PERRLA, moist MMs Neck: full ROM Respiratory: clear to auscultation bilateral Cardiovascular: RRR Gastrointestinal: soft, non-tender, no distention, positive bowel sounds Musculoskeletal: no edema Neurological: moves all 4 limbs Psychiatric: normal affect Dx/Plan (1) Supraclavicular adenopathy Code(s): R59.0 - LOCALIZED ENLARGED LYMPH NODES Status: Acute (2) Metabolic encephalopathy Code(s): G93.41 - METABOLIC ENCEPHALOPATHY Status: Resolved (3) Septic shock Code(s): A41.9 - SEPSIS, UNSPECIFIED ORGANISM; R65.21 - SEVERE SEPSIS WITH SEPTIC SHOCK Status: Resolved (4) Acute on chronic renal failure Code(s): N17.9 - ACUTE KIDNEY FAILURE, UNSPECIFIED; N18.9 - CHRONIC KIDNEY DISEASE, UNSPECIFIED Status: Acute Qualifiers: Acute renal failure type: with other specified pathological lesion Chronic kidney disease stage: stage 3 (moderate) Qualified Code(s): N17.8 - Other acute kidney failure; N18.3 - Chronic kidney disease, stage 3 (moderate) (5) Physical deconditioning Code(s): R53.81 - OTHER MALAISE Status: Acute (6) UTI (urinary tract infection) Status: Acute Qualifiers: Urinary tract infection type: acute cystitis Hematuria presence: without hematuria Qualified Code(s): N30.00 - Acute cystitis without hematuria (7) Asthma Code(s): J45.909 - UNSPECIFIED ASTHMA, UNCOMPLICATED Status: Chronic Qualifiers: Asthma severity: mild Asthma persistence: intermittent Asthma complication type: uncomplicated Qualified Code(s): J45.20 - Mild intermittent asthma, uncomplicated (8) CKD (chronic kidney disease) stage 3, GFR 30-59 ml/min Code(s): N18.3 - CHRONIC KIDNEY DISEASE, STAGE 3 (MODERATE) Status: Chronic (9) Chronic diarrhea Code(s): K52.9 - NONINFECTIVE GASTROENTERITIS AND COLITIS, UNSPECIFIED Status : Chronic (10) Chronic systolic congestive heart failure, NYHA class 3 Code(s): I50.22 - CHRONIC SYSTOLIC (CONGESTIVE) HEART FAILURE Status: Chronic (11) Coronary artery disease Code(s): I25.10 - ATHSCL HEART DISEASE OF [place] CORONARY ARTERY W/O ANG PCTRS Status: Chronic Qualifiers: Coronary Disease-Associated Artery/Lesion type: [place] artery [place] vs. transplanted heart: [place] heart Associated angina: without angina Qualified Code(s): I25.10 - Atherosclerotic heart disease of [place] coronary artery without angina pectoris (12) DM type 2 (diabetes mellitus, type 2) Status: Chronic Qualifiers: Diabetes mellitus terminal supervisor insulin use: without usp use Diabetes mellitus complication status: with unspecified complications Qualified Code(s) : E11.8 - Type 2 diabetes mellitus with unspecified complications (13) Dyslipidemia Code(s): E78.5 - HYPERLIPIDEMIA, UNSPECIFIED Status: Chronic - Plan Plan: Septic shock (resolved) 2/2 UTI - s/p 3L NS in ED, persistent hypotension, briefly on Levo ggt, discontinued on 07/01/18 - cultures negative DC Vanc/Zosyn - significant stone burden on CT, horseshoe kidney, 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 Mcknight consulted, appreciate recs - Dr. 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 Alfred consulted, recommended biopsy; US guided LN biopsy, results pending HTN - holding home meds - pt required pressors initially but pressors d/c'd on 07/01/18 - will monitor BP closely DMII - mild SSI, accuchecks achs - resume home meds CHF - last EF 30-35% earlier this year - no signs fluid overload - monitor resp status - strict I/Os Chronic a-fib - Cont home eliquis Parkinson disease - home meds once tolerating PO HLD - Home meds once tolerating PO Dispo: awaiting placement Addendum - Attending - Attending Attestation Date/Time: 07/08/18 4075 I personally evaluated the patient and discussed the management with Dr. Crespo I agree with the History, Examination, Assessment and Plan documented above with any addition or exceptions noted below. Starting to look into rehab, history of horseshoe kidney with nephrolithiasis defer to [facility]. Biopsy result pending, advance activity and communicated care plan with family.
[2018-07-08 07:11] LABS: Hemoglobin 11.7 g/dL (14.0-18.0); Mean Corpuscular Hemoglobin 32.8 pg (27.0-31.0); Mean Corpuscular Volume 99.3 fL (78.0-98.0); Mean Platelet Volume 6.7 fL (7.4-10.4); Platelet Count 234 thou/uL (130-400); RBC Distribution Width 13.3 % (11.5-14.5); Red Blood Cell (RBC) Count 3.56 mill/uL (4.70-6.10); White Blood Cell (WBC) Count 9.9 thou/uL (4.8-10.8)
[2018-07-08 07:13] LABS: ALT (SGPT) Less than 7 U/L (8-55); AST (SGOT) 14 U/L (5-34); Alkaline Phosphatase 53 U/L (40-150); Anion Gap 9 mmol/L (10-20); BUN (Urea Nitrogen) 20 mg/dL (8.4-25.7); Bilirubin, Total 0.5 mg/dL (0.2-1.2); Calc. Creatinine Clearance 54 mL/min (70-130); Calcium 9.3 mg/dL (7.8-10.44); Carbon Dioxide 27 mmol/L (23-31); Chloride 113 mmol/L (98-107); Estimated GFR-MDRD 49; Globulin 2.4 g/dL (2.4-3.5); Glucose 102 mg/dL (83-110); Potassium 4.5 mmol/L (3.5-5.1); Protein, Total 5.4 g/dL (5.8-8.1); Sodium 144 mmol/L (136-145)
[2018-07-08 08:33] LABS: Band 5 % (5-11); Eosinophils 2 % (0-10); Lymphocytes 49 % (21-51); MDiff Complete? YES; Metamyelocyte 1 % (0-0); Monocytes 5 % (0-10); Neutrophil 28 % (42-75); RBC Morphology Normal; Reactive Lymphocytes 10 % (0-10)
[2018-07-08] MEDS: Potassium Chloride 20 MEQ TAB PO SCH ×2 (09:04→17:36)
[2018-07-08] MEDS: Apixaban 2.5 MG TAB PO SCH ×2 (09:04→20:11)
[2018-07-08] MEDS: Donepezil HCl 5 MG TAB PO SCH (09:05)
[2018-07-08] MEDS: Bicalutamide 50 MG TAB PO SCH (09:05)
[2018-07-08] MEDS: Saccharomyces boulardii 250 MG CAP PO SCH (09:05)
[2018-07-08] MEDS: Famotidine 20 MG TAB PO SCH (09:05)
[2018-07-08] MEDS: Carbidopa/Levodopa 25-100 mg Tablet PO SCH ×3 (09:05→20:11)
[2018-07-08] MEDS: Finasteride 5 MG TAB PO SCH (09:05)
[2018-07-08] MEDS: Tamsulosin HCl 0.4 MG CAP PO SCH ×2 (09:05→20:10)
[2018-07-08] MEDS: Oseltamivir 75 MG CAP PO SCH ×2 (09:05→20:10)
[2018-07-08] MEDS: Folic Acid 1 MG TAB PO SCH (09:05)
[2018-07-08] MEDS: Ketoconazole 2% Cream 15 gm Tube TOP SCH ×2 (09:06→20:11)
[2018-07-08] MEDS: Nystatin Powder 15 GM BOT TOP SCH ×2 (09:06→20:12)
[2018-07-08] MEDS: Acetaminophen 325 MG TAB PO PRN (09:09)
[2018-07-08] MEDS: Polyethylene Glycol 3350 17 GM Packet PO SCH (09:11)
[2018-07-08] MEDS: SYSTANE 3.5 GM TUBE L EYE SCH ×2 (10:15→20:12)
--- NOTE | 2018-07-08 10:52 | PRG ---
DATE OF SERVICE: 07/08/2018 SUBJECTIVE: The patient has done well over the weekend. The only reason he stated was because now they are looking for rehab and they were working for placement. He has remained afebrile. His abdominal pain comes and goes, but overall it is better than when he came in. We had a discussion about whether GI has re-consultation on this gentleman, but since they already did an endoscopy and colonoscopy just in March and based on his clinical condition and symptoms, I do not think there is anything acutely concerning related to this and it may be more related to irritable bowel, but also it could be his chronic issues. It is unlikely to represent anything disconcerting given his recent negative colonoscopy and endoscopy. OBJECTIVE: VITAL SIGNS: He has remained afebrile. Vital signs have been stable. Blood pressure 149/61, saturating 92% on room air, but previously 93% to 94% with a respiratory rate of 18, and heart rate of 74. His I's and O's have been recorded as urinal. GENERAL: He is comfortable on the bed, still lying down, eating a banana. LABORATORY DATA: Reveal a stable and improving CBC based on anemia and creatinine at 1.37. The pathology for his lymph nodes have not come back yet. ASSESSMENT: We have an 87-year-old gentleman admitted with a flu and concern for urosepsis, but this was ultimately deemed to be unlikely source for his deconditioning. He now is improving and doing fine off antibiotics with known significant stone disease including that in the right ureter, which is being observed and deferring treatment based on his medical status and surgical risks. Currently, awaiting pathology results and placement. Job ID: [id number]
[2018-07-08] MEDS: Atorvastatin Calcium 20 MG TAB PO SCH (20:10)
[2018-07-08] MEDS: Montelukast Sodium 10 mg Tablet PO SCH (20:10)
--- NOTE | 2018-07-09 06:37 | PDOC.FM ---
- Subjective Subjective: No events overnight. Patient states he is doing well this morning with no issues or concerns. - Objective Vital Signs & Weight: Vital Signs (12 hours) Temp Pulse Resp BP Pulse Ox 07/08/18 20:40 92 L 07/08/18 20:25 98.5 F 84 18 131/78 92 L Weight Admit Weight 96.615 kg Weight 96.9 kg Most Recent Monitor Data Heart Rate from ECG 89 NIBP 106/47 NIBP BP-Mean 66 Respiration from ECG 19 SpO2 94 I&O: 07/07/18 07/08/18 07/09/18 06:59 06:59 06:59 Intake Total 900 1200 1090 Output Total 800 1000 925 Balance 100 200 165 Result Diagrams: 07/08/18 06:01 07/08/18 06:01 Phys Exam - Physical Examination Constitutional: NAD HEENT: PERRLA, moist MMs, sclera anicteric Neck: supple, full ROM Respiratory: clear to auscultation bilateral Cardiovascular: RRR Gastrointestinal: soft, non-tender, no distention, positive bowel sounds Musculoskeletal: no edema Neurological: moves all 4 limbs Psychiatric: normal affect Dx/Plan (1) CLL (chronic lymphocytic leukemia) Code(s): C91.90 - LYMPHOID LEUKEMIA, UNSPECIFIED NOT HAVING ACHIEVED REMISSION Status: Acute (2) Supraclavicular adenopathy Code(s): R59.0 - LOCALIZED ENLARGED LYMPH NODES Status: Acute (3) Metabolic encephalopathy Code(s): G93.41 - METABOLIC ENCEPHALOPATHY Status: Resolved (4) Septic shock Code(s): A41.9 - SEPSIS, UNSPECIFIED ORGANISM; R65.21 - SEVERE SEPSIS WITH SEPTIC SHOCK Status: Resolved (5) Acute on chronic renal failure Code(s): N17.9 - ACUTE KIDNEY FAILURE, UNSPECIFIED; N18.9 - CHRONIC KIDNEY DISEASE, UNSPECIFIED Status: Acute Qualifiers: Acute renal failure type: with other specified pathological lesion Chronic kidney disease stage: stage 3 (moderate) Qualified Code(s): N17.8 - Other acute kidney failure; N18.3 - Chronic kidney disease, stage 3 (moderate) (6) Physical deconditioning Code(s): R53.81 - OTHER MALAISE Status: Acute (7) UTI (urinary tract infection) Status: Acute Qualifiers: Urinary tract infection type: acute cystitis Hematuria presence: without hematuria Qualified Code(s): N30.00 - Acute cystitis without hematuria (8) Asthma Code(s): J45.909 - UNSPECIFIED ASTHMA, UNCOMPLICATED Status: Chronic Qualifiers: Asthma severity: mild Asthma persistence: intermittent Asthma complication type: uncomplicated Qualified Code(s): J45.20 - Mild intermittent asthma, uncomplicated (9) CKD (chronic kidney disease) stage 3, GFR 30-59 ml/min Code(s): N18.3 - CHRONIC KIDNEY DISEASE, STAGE 3 (MODERATE) Status: Chronic (10) Chronic diarrhea Code(s): K52.9 - NONINFECTIVE GASTROENTERITIS AND COLITIS, UNSPECIFIED Status : Chronic (11) Chronic systolic congestive heart failure, NYHA class 3 Code(s): I50.22 - CHRONIC SYSTOLIC (CONGESTIVE) HEART FAILURE Status: Chronic (12) Coronary artery disease Code(s): I25.10 - ATHSCL HEART DISEASE OF [place] CORONARY ARTERY W/O ANG PCTRS Status: Chronic Qualifiers: Coronary Disease-Associated Artery/Lesion type: [place] artery [place] vs. transplanted heart: [place] heart Associated angina: without angina Qualified Code(s): I25.10 - Atherosclerotic heart disease of [place] coronary artery without angina pectoris (13) DM type 2 (diabetes mellitus, type 2) Status: Chronic Qualifiers: Diabetes mellitus bed bug 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 insulin use: without bed bug 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 use Diabetes mellitus complication status: with unspecified complications Qualified Code(s) : E11.8 - Type 2 diabetes mellitus with unspecified complications (14) Dyslipidemia Code(s): E78.5 - HYPERLIPIDEMIA, UNSPECIFIED Status: Chronic - Plan Plan: Septic shock (resolved) 2/2 UTI - s/p 3L NS in ED, persistent hypotension, briefly on Levo ggt, discontinued on 07/01/18 - cultures negative DC Vanc/Zosyn; pt doing well off abx - significant stone burden on CT, horseshoe kidney, 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 Mcknight consulted, appreciate recs - Dr. 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
[2018-07-09] MEDS: Saccharomyces boulardii 250 MG CAP PO SCH (09:32)
[2018-07-09] MEDS: Tamsulosin HCl 0.4 MG CAP PO SCH ×2 (09:32→20:24)
[2018-07-09] MEDS: Potassium Chloride 20 MEQ TAB PO SCH ×2 (09:32→16:59)
[2018-07-09] MEDS: Apixaban 2.5 MG TAB PO SCH ×2 (09:32→20:24)
[2018-07-09] MEDS: Famotidine 20 MG TAB PO SCH (09:32)
[2018-07-09] MEDS: Carbidopa/Levodopa 25-100 mg Tablet PO SCH ×3 (09:33→20:24)
[2018-07-09] MEDS: Bicalutamide 50 MG TAB PO SCH (09:33)
[2018-07-09] MEDS: Donepezil HCl 5 MG TAB PO SCH (09:33)
[2018-07-09] MEDS: Folic Acid 1 MG TAB PO SCH (09:33)
[2018-07-09] MEDS: Ketoconazole 2% Cream 15 gm Tube TOP SCH ×2 (09:33→20:27)
[2018-07-09] MEDS: Finasteride 5 MG TAB PO SCH (09:33)
[2018-07-09] MEDS: SYSTANE 3.5 GM TUBE L EYE SCH ×2 (09:34→20:25)
[2018-07-09] MEDS: Polyethylene Glycol 3350 17 GM Packet PO SCH (09:34)
[2018-07-09] MEDS: Nystatin Powder 15 GM BOT TOP SCH ×2 (09:34→20:26)
[2018-07-09 09:35] LABS: Hemoglobin 12.6 g/dL (14.0-18.0); Mean Corpuscular HGB CONC 31.9 g/dL (32.0-36.0); Mean Corpuscular Hemoglobin 31.8 pg (27.0-31.0); Mean Corpuscular Volume 99.7 fL (78.0-98.0); Mean Platelet Volume 6.3 fL (7.4-10.4); Platelet Count 260 thou/uL (130-400); RBC Distribution Width 13.2 % (11.5-14.5); Red Blood Cell (RBC) Count 3.97 mill/uL (4.70-6.10); White Blood Cell (WBC) Count 11.3 thou/uL (4.8-10.8)
[2018-07-09 09:55] LABS: Band 6 % (5-11); Lymphocytes 54 % (21-51); MDiff Complete? YES; Monocytes 5 % (0-10); Neutrophil 30 % (42-75); RBC Morphology Normal; Reactive Lymphocytes 5 % (0-10)
[2018-07-09] MEDS: Atorvastatin Calcium 20 MG TAB PO SCH (20:24)
[2018-07-09] MEDS: Montelukast Sodium 10 mg Tablet PO SCH (20:24)
--- NOTE | 2018-07-09 23:12 | CON ---
DATE OF CONSULTATION: REASON FOR CONSULT: CLL/SLL. HISTORY OF PRESENT ILLNESS: Mr. Rowland is a pleasant 87-year-old gentleman who was admitted on July 01 with altered mental status and a fall. He was diagnosed with sepsis, likely due to chronic UTI. During his workup, he had a CT of the chest, abdomen, and pelvis. There was a pulmonary mass noted that was unchanged since 2014 and likely benign. He had a cluster of enlarged lymph nodes in the lower portion of his left neck. There was one lymph node measuring 1.5 x 1.0 cm. Level 3, 4, and 5 lymph nodes were involved. There were no other concerning areas. He underwent an ultrasound-guided needle biopsy of the lymph node on July 05. 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 Tissue was submitted for cytogenetics. The patient has multiple medical problems including kidney stones with UTIs. He also has a remote history of prostate cancer. He is managed by Dr. Mcknight who has seen the patient on this admission. He has been seen by Dr. Alfred for sepsis. He also has coronary artery disease with his last EF around 30%. He complains of left upper quadrant abdominal pain. On exam, it appears to be his left rib where he fell. There was no evidence of fracture on scans. The patient has recovered from his acute illness and is awaiting placement to a rehab facility. PAST MEDICAL HISTORY: 1. Diabetes mellitus 2. 2. Hypertension. 3. Hyperlipidemia. 4. Asthma. 5. Parkinson's. 6. Cardiomyopathy. 7. Kidney stones. 8. Atrial fibrillation. 9. Prostate cancer. PAST SURGICAL HISTORY: 1. Multiple bladder washouts. 2. Cholecystectomy. 3. Appendectomy. 4. AICD placement. 5. Recent endoscopy. ALLERGIES: NO KNOWN DRUG ALLERGIES. HOME MEDICATIONS: 1. Allopurinol 300 mg daily. 2. Eliquis daily. 3. Casodex daily. 4. Levodopa/carbidopa daily. 5. Coreg daily. 6. Aricept daily. 7. Folic acid daily. 8. Furosemide daily. 9. Ketoconazole daily. 10. Lisinopril daily. 11. Dulcolax daily. 12. Zoloft daily. 13. Zocor daily. 14. Pepcid daily. 15. Proscar daily. 16. Protonix daily. 17. Flomax daily. FAMILY HISTORY: No history of lymphoma or leukemia. SOCIAL HISTORY: , lives with his spouse. No alcohol, tobacco, or illicit drug use. REVIEW OF SYSTEMS: A 10-point review of systems is negative except for noted in the HPI. PHYSICAL EXAMINATION: VITAL SIGNS: Temperature is 98.1, pulse is 74, respiratory rate is 18, BP is 125/73. He is 95% on room air. GENERAL: Chronically ill-appearing male, in no acute distress. HEENT: Normocephalic, atraumatic. Pupils equal and reactive to light. NECK: Supple. CV: Regular rate and rhythm. He has an AICD in place. LUNGS: Clear anterior. ABDOMEN: Obese, nontender. Bowel sounds are positive. EXTREMITIES: No clubbing, cyanosis, or edema. SKIN: No rash. HEMATOLOGICAL: He has got scattered bruising throughout. NEUROLOGICAL: The patient is alert and oriented. PERTINENT LABORATORY AND X-RAYS: Current WBCs 11.3, hemoglobin 12.6, hematocrit 39.6, platelet count is 260,000, 30% neutrophils, 6% bands, 54% lymphocytes. Sodium is 144, potassium is 4.5, chloride is 113, CO2 is 27, BUN is 20, creatinine is 1.37, calcium is 9.3, total bilirubin is 0.5, AST is 14, ALT is less than 7, alkaline phosphatase is 53. Serum total protein is 5.4, albumin is 3.0, globulin is 2.4. PSA is 0.05. He was positive for influenza B. ASSESSMENT: 1. Left cervical lymphadenopathy consistent with chronic lymphocytic leukemia/ small lymphocytic lymphoma on flow cytometry. 2. Sepsis, resolved. 3. Chronic kidney disease 3. 4. History of prostate cancer. DISCUSSION: The patient has minimal symptoms from CLL, primarily occasional night sweats, which may be secondary to his chronic infection. He has no cytopenias on his CBC. On discussion with Dr. Prince, there is no treatment required at this time. However, recommend that he follow up in the outpatient setting for continued monitoring. Thank you for the consult. Job ID: [id number] MTDD
--- NOTE | 2018-07-10 06:20 | PDOC.FM ---
- Subjective Subjective: Patient resting comfortably in bed. No complaints or issues. No events overnight. - Objective MAR Reviewed: Yes Vital Signs & Weight: Vital Signs (12 hours) Temp Pulse Resp BP Pulse Ox 07/09/18 20:20 93 L 07/09/18 19:24 98.5 F 86 20 120/69 93 L Weight Admit Weight 96.615 kg Weight 96.9 kg Most Recent Monitor Data Heart Rate from ECG 89 NIBP 106/47 NIBP BP-Mean 66 Respiration from ECG 19 SpO2 94 I&O: 07/08/18 07/09/18 07/10/18 06:59 06:59 06:59 Intake Total 1200 1090 1070 Output Total 1000 925 750 Balance 200 165 320 Result Diagrams: 07/09/18 09:16 07/08/18 06:01 Phys Exam - Physical Examination Constitutional: NAD HEENT: PERRLA, moist MMs, sclera anicteric Neck: supple, full ROM Respiratory: clear to auscultation bilateral Cardiovascular: RRR Gastrointestinal: soft, no distention Musculoskeletal: no edema Neurological: non-focal Psychiatric: normal affect Dx/Plan (1) CLL (chronic lymphocytic leukemia) Code(s): C91.90 - LYMPHOID LEUKEMIA, UNSPECIFIED NOT HAVING ACHIEVED REMISSION Status: Acute (2) Supraclavicular adenopathy Code(s): R59.0 - LOCALIZED ENLARGED LYMPH NODES Status: Acute (3) Metabolic encephalopathy Code(s): G93.41 - METABOLIC ENCEPHALOPATHY Status: Resolved (4) Septic shock Code(s): A41.9 - SEPSIS, UNSPECIFIED ORGANISM; R65.21 - SEVERE SEPSIS WITH SEPTIC SHOCK Status: Resolved (5) Acute on chronic renal failure Code(s): N17.9 - ACUTE KIDNEY FAILURE, UNSPECIFIED; N18.9 - CHRONIC KIDNEY DISEASE, UNSPECIFIED Status: Acute Qualifiers: Acute renal failure type: with other specified pathological lesion Chronic kidney disease stage: stage 3 (moderate) Qualified Code(s): N17.8 - Other acute kidney failure; N18.3 - Chronic kidney disease, stage 3 (moderate) (6) Physical deconditioning Code(s): R53.81 - OTHER MALAISE Status: Acute (7) UTI (urinary tract infection) Status: Acute Qualifiers: Urinary tract infection type: acute cystitis Hematuria presence: without hematuria Qualified Code(s): N30.00 - Acute cystitis without hematuria (8) Asthma Code(s): J45.909 - UNSPECIFIED ASTHMA, UNCOMPLICATED Status: Chronic Qualifiers: Asthma severity: mild Asthma persistence: intermittent Asthma complication type: uncomplicated Qualified Code(s): J45.20 - Mild intermittent asthma, uncomplicated (9) CKD (chronic kidney disease) stage 3, GFR 30-59 ml/min Code(s): N18.3 - CHRONIC KIDNEY DISEASE, STAGE 3 (MODERATE) Status: Chronic (10) Chronic diarrhea Code(s): K52.9 - NONINFECTIVE GASTROENTERITIS AND COLITIS, UNSPECIFIED Status : Chronic (11) Chronic systolic congestive heart failure, NYHA class 3 Code(s): I50.22 - CHRONIC SYSTOLIC (CONGESTIVE) HEART FAILURE Status: Chronic (12) Coronary artery disease Code(s): I25.10 - ATHSCL HEART DISEASE OF [place] CORONARY ARTERY W/O ANG PCTRS Status: Chronic Qualifiers: Coronary Disease-Associated Artery/Lesion type: [place] artery [place] vs. transplanted heart: [place] heart Associated angina: without angina Qualified Code(s): I25.10 - Atherosclerotic heart disease of [place] coronary artery without angina pectoris (13) DM type 2 (diabetes mellitus, type 2) Status: Chronic Qualifiers: Diabetes mellitus terminal clerk insulin use: without chcf use Diabetes mellitus complication status: with unspecified complications Qualified Code(s) : E11.8 - Type 2 diabetes mellitus with unspecified complications (14) Dyslipidemia Code(s): E78.5 - HYPERLIPIDEMIA, UNSPECIFIED Status: Chronic - Plan Plan: Septic shock (resolved) 2/2 UTI - s/p 3L NS in ED, persistent hypotension, briefly on Levo ggt, discontinued on 07/01/18 - cultures negative DC Vanc/Zosyn; pt doing well off abx - significant stone burden on CT, horseshoe kidney, 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 Mcknight consulted, appreciate recs - Dr. 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 Alfred consulted, recommended biopsy; US guided LN biopsy found CLL/SLL - Oncology consulted - no need for treatment at this time, follow up outpatient ; appreciate recs Acute kidney injury on CKD: showing improvement - known kidney disease, UZMA likely 2/2 septic shock - encourage PO hydration - monitor AM BMP HTN - holding home meds - pt required pressors initially but pressors d/c'd on 07/01/18 - will monitor BP closely DMII - mild SSI, accuchecks achs - resume home meds HFrEF, present on admission - last EF 30-35% earlier this year - no signs fluid overload - monitor resp status - strict I/Os Chronic a-fib - Cont home eliquis Parkinson disease - home meds once tolerating PO HLD - Home meds once tolerating PO Dispo: awaiting placement Addendum - Attending - Attending Attestation Date/Time: 07/10/182018 I personally evaluated the patient and discussed the management with Dr. Crespo I agree with the History, Examination, Assessment and Plan documented above with any addition or exceptions noted below.
[2018-07-10] MEDS: Apixaban 2.5 MG TAB PO SCH ×2 (08:29→20:18)
[2018-07-10] MEDS: Folic Acid 1 MG TAB PO SCH (08:29)
[2018-07-10] MEDS: Carbidopa/Levodopa 25-100 mg Tablet PO SCH ×3 (08:29→20:18)
[2018-07-10] MEDS: Donepezil HCl 5 MG TAB PO SCH (08:29)
[2018-07-10] MEDS: Polyethylene Glycol 3350 17 GM Packet PO SCH (08:29)
[2018-07-10] MEDS: Bicalutamide 50 MG TAB PO SCH (08:29)
[2018-07-10] MEDS: Finasteride 5 MG TAB PO SCH (08:30)
[2018-07-10] MEDS: Saccharomyces boulardii 250 MG CAP PO SCH (08:30)
[2018-07-10] MEDS: Potassium Chloride 20 MEQ TAB PO SCH ×2 (08:30→17:26)
[2018-07-10] MEDS: Ketoconazole 2% Cream 15 gm Tube TOP SCH ×2 (08:31→20:25)
[2018-07-10] MEDS: Nystatin Powder 15 GM BOT TOP SCH ×2 (08:32→20:25)
[2018-07-10] MEDS: SYSTANE 3.5 GM TUBE L EYE SCH ×2 (08:32→20:25)
[2018-07-10] MEDS: Tamsulosin HCl 0.4 MG CAP PO SCH ×2 (10:34→20:18)
[2018-07-10] MEDS: Famotidine 20 MG TAB PO SCH (12:44)
[2018-07-10] MEDS: Atorvastatin Calcium 20 MG TAB PO SCH (20:18)
[2018-07-10] MEDS: Montelukast Sodium 10 mg Tablet PO SCH (20:18)
[2018-07-10] MEDS: Acetaminophen 325 MG TAB PO PRN (20:18)
[2018-07-10] MEDS ORDERED: Melatonin 3 MG TAB PO PRN (22:30)
--- NOTE | 2018-07-11 06:48 | PDOC.FM ---
- Subjective Subjective: Patient resting comfortably in bed. No issues or complaints this morning. OVernight patient complained of itchy rash on his back. Patient states rash is itchy but not painful. - Objective MAR Reviewed: Yes Vital Signs & Weight: Vital Signs (12 hours) Temp Pulse Resp BP Pulse Ox 07/10/18 20:15 92 L 07/10/18 19:34 98.5 F 95 20 109/72 92 L Weight Admit Weight 96.615 kg Weight 96.9 kg Most Recent Monitor Data Heart Rate from ECG 89 NIBP 106/47 NIBP BP-Mean 66 Respiration from ECG 19 SpO2 94 I&O: 07/09/18 07/10/18 07/11/18 06:59 06:59 06:59 Intake Total 1090 1070 1000 Output Total 925 950 700 Balance 165 120 300 Result Diagrams: 07/11/18 06:32 07/11/18 06:32 Phys Exam - Physical Examination Constitutional: NAD HEENT: moist MMs, sclera anicteric Neck: supple, full ROM Respiratory: clear to auscultation bilateral Cardiovascular: RRR Gastrointestinal: soft, non-tender, no distention, positive bowel sounds Musculoskeletal: no edema Neurological: non-focal, moves all 4 limbs Psychiatric: normal affect Deviation from normal: dry skin on upper back Dx/Plan (1) CLL (chronic lymphocytic leukemia) Code(s): C91.90 - LYMPHOID LEUKEMIA, UNSPECIFIED NOT HAVING ACHIEVED REMISSION Status: Acute (2) Supraclavicular adenopathy Code(s): R59.0 - LOCALIZED ENLARGED LYMPH NODES Status: Acute (3) Metabolic encephalopathy Code(s): G93.41 - METABOLIC ENCEPHALOPATHY Status: Resolved (4) Septic shock Code(s): A41.9 - SEPSIS, UNSPECIFIED ORGANISM; R65.21 - SEVERE SEPSIS WITH SEPTIC SHOCK Status: Resolved (5) Acute on chronic renal failure Code(s): N17.9 - ACUTE KIDNEY FAILURE, UNSPECIFIED; N18.9 - CHRONIC KIDNEY DISEASE, UNSPECIFIED Status: Acute Qualifiers: Acute renal failure type: with other specified pathological lesion Chronic kidney disease stage: stage 3 (moderate) Qualified Code(s): N17.8 - Other acute kidney failure; N18.3 - Chronic kidney disease, stage 3 (moderate) (6) Physical deconditioning Code(s): R53.81 - OTHER MALAISE Status: Acute (7) UTI (urinary tract infection) Status: Acute Qualifiers: Urinary tract infection type: acute cystitis Hematuria presence: without hematuria Qualified Code(s): N30.00 - Acute cystitis without hematuria (8) Asthma Code(s): J45.909 - UNSPECIFIED ASTHMA, UNCOMPLICATED Status: Chronic Qualifiers: Asthma severity: mild Asthma persistence: intermittent Asthma complication type: uncomplicated Qualified Code(s): J45.20 - Mild intermittent asthma, uncomplicated (9) CKD (chronic kidney disease) stage 3, GFR 30-59 ml/min Code(s): N18.3 - CHRONIC KIDNEY DISEASE, STAGE 3 (MODERATE) Status: Chronic (10) Chronic diarrhea Code(s): K52.9 - NONINFECTIVE GASTROENTERITIS AND COLITIS, UNSPECIFIED Status : Chronic (11) Chronic systolic congestive heart failure, NYHA class 3 Code(s): I50.22 - CHRONIC SYSTOLIC (CONGESTIVE) HEART FAILURE Status: Chronic (12) Coronary artery disease Code(s): I25.10 - ATHSCL HEART DISEASE OF [place] CORONARY ARTERY W/O ANG PCTRS Status: Chronic Qualifiers: Coronary Disease-Associated Artery/Lesion type: [place] artery [place] vs. transplanted heart: [place] heart Associated angina: without angina Qualified Code(s): I25.10 - Atherosclerotic heart disease of [place] coronary artery without angina pectoris (13) DM type 2 (diabetes mellitus, type 2) Status: Chronic Qualifiers: Diabetes mellitus fpc insulin use: without fpc use Diabetes mellitus complication status: with unspecified complications Qualified Code(s) : E11.8 - Type 2 diabetes mellitus with unspecified complications (14) Dyslipidemia Code(s): E78.5 - HYPERLIPIDEMIA, UNSPECIFIED Status: Chronic - Plan Plan: Septic shock (resolved) 2/2 UTI - s/p 3L NS in ED, persistent hypotension, briefly on Levo ggt, discontinued on 07/01/18 - cultures negative DC Vanc/Zosyn; pt doing well off abx - significant stone burden on CT, horseshoe kidney, 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 Mcknight consulted, appreciate recs - Dr. 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 Alfred consulted, recommended biopsy; US guided LN biopsy found CLL/SLL - Oncology consulted - no need for treatment at this time, follow up outpatient ; appreciate recs Acute kidney injury on CKD: showing improvement - known kidney disease, UZMA likely 2/2 septic shock - encourage PO hydration - monitor AM BMP HTN - holding home meds - pt required pressors initially but pressors d/c'd on 07/01/18 - will monitor BP closely DMII - mild SSI, accuchecks achs - resume home meds HFrEF, present on admission - last EF 30-35% earlier this year - no signs fluid overload - monitor resp status - strict I/Os Chronic a-fib - Cont home eliquis Parkinson disease - home meds once tolerating PO HLD - Home meds once tolerating PO Dispo: pt rejected from rehab, pursuing SNF Addendum - Attending - Attending Attestation Date/Time: 07/11/18 1600 I personally evaluated the patient and discussed the management with Dr. Crespo I agree with the History, Examination, Assessment and Plan documented above with any addition or exceptions noted below.Disposition to SNF or swing bed as available working with family for further options.
[2018-07-11 07:31] LABS: Anion Gap 12 mmol/L (10-20); BUN (Urea Nitrogen) 20 mg/dL (8.4-25.7); Calc. Creatinine Clearance 51 mL/min (70-130); Calcium 9.2 mg/dL (7.8-10.44); Carbon Dioxide 23 mmol/L (23-31); Chloride 112 mmol/L (98-107); Estimated GFR-MDRD 46; Glucose 91 mg/dL (83-110); Potassium 4.9 mmol/L (3.5-5.1); Sodium 142 mmol/L (136-145)
[2018-07-11 07:32] LABS: Hemoglobin 11.6 g/dL (14.0-18.0); Mean Corpuscular HGB CONC 31.9 g/dL (32.0-36.0); Mean Corpuscular Hemoglobin 32.1 pg (27.0-31.0); Mean Platelet Volume 6.3 fL (7.4-10.4); Platelet Count 249 thou/uL (130-400); RBC Distribution Width 13.2 % (11.5-14.5); Red Blood Cell (RBC) Count 3.63 mill/uL (4.70-6.10)
[2018-07-11 08:03] LABS: Band 2 % (5-11); Eosinophils 1 % (0-10); Lymphocytes 70 % (21-51); MDiff Complete? YES; Monocytes 5 % (0-10); Neutrophil 22 % (42-75); RBC Morphology Normal
[2018-07-11] MEDS: Bicalutamide 50 MG TAB PO SCH (08:51)
[2018-07-11] MEDS: Donepezil HCl 5 MG TAB PO SCH (08:53)
[2018-07-11] MEDS: Apixaban 2.5 MG TAB PO SCH (08:53)
[2018-07-11] MEDS: Finasteride 5 MG TAB PO SCH (08:53)
[2018-07-11] MEDS: Potassium Chloride 20 MEQ TAB PO SCH (08:53)
[2018-07-11] MEDS: Carbidopa/Levodopa 25-100 mg Tablet PO SCH ×2 (08:53→15:06)
[2018-07-11] MEDS: Famotidine 20 MG TAB PO SCH (08:53)
[2018-07-11] MEDS: Saccharomyces boulardii 250 MG CAP PO SCH (08:53)
[2018-07-11] MEDS: Folic Acid 1 MG TAB PO SCH (08:53)
[2018-07-11] MEDS: Ketoconazole 2% Cream 15 gm Tube TOP SCH (08:54)
[2018-07-11] MEDS: Nystatin Powder 15 GM BOT TOP SCH (08:54)
[2018-07-11] MEDS: SYSTANE 3.5 GM TUBE L EYE SCH (08:54)
[2018-07-11] MEDS: Polyethylene Glycol 3350 17 GM Packet PO SCH (08:55)
[2018-07-11] MEDS: Tamsulosin HCl 0.4 MG CAP PO SCH (08:57)
[2018-07-11 16:13] VITALS: BP 161/63; TEMP 98.4
--- NOTE | 2018-07-12 08:58 | PRG ---
DATE OF SERVICE: 07/11/2018 SUBJECTIVE: The patient is sleeping comfortably in the bed. When I asked how he is doing, he is not as good as normal, because his left upper quadrant pain is still hurting. He has had a normal bowel movement and is not nauseous or vomiting and is eating okay. He has no complaints about his urination. I spoke with the patient about his pathology regarding the lymph node biopsy and he seemed to be hearing it for the first time. We reviewed how Oncology feels this is such an early stage component. There is no indicated treatment at this time. He seemed to understand. PHYSICAL EXAMINATION: VITAL SIGNS: He has been afebrile with vital signs stable, saturating 96% on room air. Output 700 in the last 24 hours, which is too low from a stone standpoint in prevention. ABDOMEN: Soft, nondistended, nontender. The tenderness is actually at the rib instead of the abdomen at this point. LABORATORY DATA: Laboratory values reveal a stable H and H, and improved creatinine to 1.45. ASSESSMENT: We have an 87-year-old gentleman, admitted initially with concerns for urosepsis, but now more likely related to dehydration and flu with long-standing stone disease and BPH. He should continue tamsulosin and finasteride and other care per the other services. He is awaiting placement at this time. Job ID: [id number]
--- NOTE | 2018-07-12 10:49 | DIS ---
DATE OF ADMISSION: 07/01/2018 DATE OF DISCHARGE: 07/11/2018 RESIDENT: Daphnie Crespo MD ADMITTING ATTENDING: Leona Avila MD DISCHARGE ATTENDING: Chilango Weinberg MD. CONSULTS: Case Management, Infectious Disease, Oncology, Pulmonology, PT/OT, Rehab Screen. PROCEDURES: Needle ultrasound-guided biopsy of lymph node on 07/05/2018. PRIMARY DIAGNOSES: 1. Septic shock, resolved, secondary to influenza B. 2. Metabolic encephalopathy, resolved. 3. Chronic lymphocytic leukemia/small lymphocytic lymphoma. 4. Acute kidney injury on chronic kidney disease. SECONDARY DIAGNOSES: 1. Hypertension. 2. Diabetes type 2. 3. Heart failure with reduced ejection fraction, present on admission. 4. Chronic atrial fibrillation. 5. Parkinson disease. 6. Hyperlipidemia. DISCHARGE MEDICATIONS: 1. Colace 100 mg oral twice daily as needed. 2. MiraLAX 17 g once daily. 3. K-Dur 20 mEq oral twice daily with meals. 4. Florastor 250 mg oral daily. 5. Zocor 40 mg oral at bedtime. 6. Vitamin D3, 0.5 tabs oral daily. 7. Sertraline 50 mg oral daily. 8. Casodex 50 mg oral daily. 9. Folic acid 1 mg oral daily. 10. Lisinopril 5 mg oral daily. 11. Furosemide 20 mg oral daily. 12. Protonix 40 mg oral daily. 13. Donepezil 5 mg oral daily. 14. Carbidopa/levodopa 1 tablet oral 3 times daily. 15. Triamcinolone acetonide ointment 1 application topical daily. 16. Ketoconazole 1 topical twice daily. 17. Senokot-S 2 tablets oral twice daily as needed. 18. Coreg 0.5 tabs oral daily. 19. Fluocinonide topical daily as needed. 20. Eliquis 2.5 mg oral twice daily. 21. Allopurinol 300 mg once daily. 22. Montelukast sodium 10 mg oral every evening. 23. Tylenol regular strength 650 mg oral every 4 hours as needed. 24. Pepcid 20 mg oral every 24 hours. 25. Proscar 5 mg oral daily. 26. Flomax 0.4 mg oral twice daily. DISCONTINUED MEDICATIONS: None. HISTORY OF PRESENT ILLNESS AND HOSPITAL COURSE: This is an 87-year-old male who presented to the emergency department for altered mental status and fall. The patient was found down by family after being left for no more than 2 hours. The patient was seen prior to the fall at baseline, walking, moving around, and not complaining of anything. When he was found, the patient was on the ground and had cut his head, was muttering incomprehensible words. Over the last several days , the patient had diarrhea with also constipation. The patient has been following up with Urology regularly for bladder washouts. The patient has a history significant for recurrent UTIs and a known heavy stone burden. The patient has a history of a horseshoe kidney. In the ED, the patient was given fentanyl, vancomycin, Zosyn , and normal saline. The patient's vital signs were within normal limits on admission. The patient was then found to have a white blood cell count of 15.9. The patient had a BUN/creatinine of 33/2.31 on admission. The patient's UA was positive for blood, leukocyte esterase, wbc's, and rare to few bacteria. The patient's urine culture had no growth next 48 hours, which made the patient's UTI unlikely. Due to blood pressure under 70, the patient had a central line placed on 07/01/2018 pressors were began. Pulmonology was consulted. The patient was found to have significant stone burden on CT as well as horseshoe kidney, staghorn calculus with multiple moderate-sized chronic stones. Dr. Mcknight is the patient's urologist, and she had no additional recommendations and to continue with the current plan. Over the course of the hospitalization, the patient's metabolic encephalopathy improved. The family endorsed that the patient was back to his baseline by the end of his hospitalization. The patient's CT chest, abdomen, and pelvis, which showed a new supraclavicular lymph node. ID recommended to obtain a biopsy. Pathology on this lymph node came back CLL/SLL. Oncology was consulted and came to see the patient and recommended that treatment at this time is follow up outpatient. The patient's pressors were discontinued and his blood pressure was monitored closely throughout his stay with a return to normal limits. The patient was found to be positive for influenza B and Tamiflu was started on 07/04/2018. The patient completed a full course of Tamiflu. The patient was initially set up to go to rehab, but was denied. The patient was unable to be transferred due to bed availability and family did not want to go a different facility. Discussed with family the need for PT/OT at home for the patient and caregiver burden. The family states that they would like to take the patient home and take care of him there. They are aware of the 30-day period when the patient would be eligible for an inpatient rehab stay. The patient's antibiotics were discontinued as UTI was unlikely and his symptoms were likely due to the flu. DISPOSITION: Guarded. DISCHARGE INSTRUCTIONS: 1. Location: Home. 2. Diet: Heart healthy, low-sodium. 3. Activity: Ad roberto with PT/OT. 4. Followup: With PCP within 1 week, follow up with Dr. Mcknight and Dr. Prince in 1 week. Job ID: [id number] [facility]ITAL[facility]
== END 2018-07-11 16:17 | disposition home health service (06) | DRG 853 ==
LOC: ERS 14:28 → CCU 17:27 → T4-A 07-03 15:26
PROVIDERS: ADMIT Student in an Organized Health Care Education/Training Program; ATTEND Student in an Organized Health Care Education/Training Program
PROC: 3E033XZ Introduction of Vasopressor into Peripheral Vein, Percutaneous Approach (ICD-10-PCS; 2018-07-01)
PROC: 07B23ZX Excision of Left Neck Lymphatic, Percutaneous Approach, Diagnostic (ICD-10-PCS; principal; 2018-07-05)
DX: A41.9 Sepsis, unspecified organism (principal); R65.21 Severe sepsis with septic shock; G93.41 Metabolic encephalopathy; N17.9 Acute kidney failure, unspecified; I13.0 Hypertensive heart and chronic kidney disease with heart failure and stage 1 through stage 4 chronic kidney disease, or unspecified chronic kidney disease; I50.22 Chronic systolic (congestive) heart failure; C91.10 Chronic lymphocytic leukemia of B-cell type not having achieved remission; N20.2 Calculus of kidney with calculus of ureter; Q63.1 Lobulated, fused and horseshoe kidney; E78.5 Hyperlipidemia, unspecified; G20 Parkinson's disease; E11.22 Type 2 diabetes mellitus with diabetic chronic kidney disease; N18.3 Chronic kidney disease, stage 3 (moderate); I25.10 Atherosclerotic heart disease of native coronary artery without angina pectoris; J11.1 Influenza due to unidentified influenza virus with other respiratory manifestations; I48.2 Chronic atrial fibrillation; K52.9 Noninfective gastroenteritis and colitis, unspecified; E66.01 Morbid (severe) obesity due to excess calories; Z68.29 Body mass index [BMI] 29.0-29.9, adult; G89.29 Other chronic pain; I25.5 Ischemic cardiomyopathy; Z87.891 Personal history of nicotine dependence; Z85.46 Personal history of malignant neoplasm of prostate; Z90.49 Acquired absence of other specified parts of digestive tract; Z95.810 Presence of automatic (implantable) cardiac defibrillator; Z80.0 Family history of malignant neoplasm of digestive organs; Z80.8 Family history of malignant neoplasm of other organs or systems; Z82.49 Family history of ischemic heart disease and other diseases of the circulatory system
CPT/HCPCS: 36415; 36416; 38505; 51702; 70450; 71045; 71260; 72125; 74177; 80048; 80053; 80202; 80307; 81001; 81003; 81015; 82550; 82553; 82805; 83605; 83690; 84443; 84484; 85007; 85025; 85027; 85060; 87040; 87086; 87804; 88184; 88333; 93005; 94760; 96361; 96365; 96366; 96367; 96374; 96375; J0696; J1644; J2001; J2270; J2543; J3010; J3370; J7050; S0028

== ENCOUNTER 2018-10-08 16:43 | Emergency (ER) | payer MEDICARE, OTHER ==
[~2018-10-08 16:43] MED LIST changes: +ISOVUE-370 76%-LOCM 1 ML ONE; -Iopamidol 370 76% 100 ML VIAL ONE
[2018-10-08 19:52] LABS: Mean Corpuscular HGB CONC 32.7 g/dL (32.0-36.0); Mean Corpuscular Hemoglobin 34.1 pg (27.0-31.0); Mean Platelet Volume 8.2 fL (7.4-10.4); Platelet Count 223 thou/uL (130-400); RBC Distribution Width 13.2 % (11.5-14.5); White Blood Cell (WBC) Count 31.5 thou/uL (4.8-10.8)
[2018-10-08 20:08] LABS: Anion Gap 10 mmol/L (10-20); BUN (Urea Nitrogen) 30 mg/dL (8.4-25.7); Calc. Creatinine Clearance 0 mL/min (70-130); Calcium 9.3 mg/dL (7.8-10.44); Carbon Dioxide 28 mmol/L (23-31); Chloride 107 mmol/L (98-107); Estimated GFR-MDRD 37; Glucose 98 mg/dL (83-110); Sodium 140 mmol/L (136-145)
[2018-10-08 20:15] LABS: Band 1 % (5-11); Lymphocytes 90 % (21-51); MDiff Complete? YES; Monocytes 1 % (0-10); Neutrophil 8 % (42-75); Platelet Morphology Comment Appears Adequate
--- NOTE | 2018-10-08 22:08 | CT ---
EXAM: ORBIT CT SCAN WITH IV CONTRAST: 10/08/18 HISTORY: Pain and swelling right eye. Patient has had prior surgery with some type of banding involving the right optic globe. The right op tic globe is somewhat more elongated in the anterior and posterior dimension compared to the left, pr esumably from the prior surgery. No evidence for intraorbital mass or abnormal fluid collection. 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 No evidence for significant sinus fluid. There is mil d right maxillary sinus mucosal disease. No evidence for acute fracture. There is bilateral atrophy a nd chronic white matter ischemic change. IMPRESSION: Postoperative changes involving the right optic globe. No intraorbital mass or abnormal fat stranding or abnormal fluid collection. Mild right maxillary sinus mucosal thickening. Right frontal sinus ost eoma. POS: ADRIÁN
== END 2018-10-08 22:32 | disposition home or self-care (01) ==
LOC: ERS 16:43
DX: H54.7 Unspecified visual loss (principal); H57.89 Other specified disorders of eye and adnexa; I11.0 Hypertensive heart disease with heart failure; I50.9 Heart failure, unspecified; E11.9 Type 2 diabetes mellitus without complications; E78.5 Hyperlipidemia, unspecified; G20 Parkinson's disease; J45.909 Unspecified asthma, uncomplicated; F32.9 Major depressive disorder, single episode, unspecified; Z87.891 Personal history of nicotine dependence; Z87.442 Personal history of urinary calculi; Z79.899 Other long term (current) drug therapy
CPT/HCPCS: 36415; 70481; 80048; 85025; Q9966

== ENCOUNTER 2019-01-31 02:36 | Inpatient (IN) | payer MEDICARE, OTHER ==
[2019-01-31] MEDS ORDERED: Ondansetron PF 4 MG/2 ML Vial ONE ×2 (03:01→09:45)
[2019-01-31] MEDS ORDERED: Acetaminophen 500 MG TAB ONE (03:15)
[2019-01-31 03:19] LABS: Hemoglobin 11.9 g/dL (14.0-18.0); Mean Corpuscular HGB CONC 31.9 g/dL (32.0-36.0); Mean Corpuscular Hemoglobin 32.7 pg (27.0-31.0); Mean Platelet Volume 8.8 fL (7.4-10.4); Platelet Count 376 thou/uL (130-400); RBC Distribution Width 12.9 % (11.5-14.5); Red Blood Cell (RBC) Count 3.65 mill/uL (4.70-6.10); White Blood Cell (WBC) Count 28.8 thou/uL (4.8-10.8)
[2019-01-31 03:31] LABS: ALT (SGPT) 13 U/L (8-55); AST (SGOT) 19 U/L (5-34); Albumin 3.5 g/dL (3.4-4.8); Alkaline Phosphatase 122 U/L (40-150); Anion Gap 16 mmol/L (10-20); BUN (Urea Nitrogen) 29 mg/dL (8.4-25.7); Bilirubin, Total 0.6 mg/dL (0.2-1.2); Calc. Creatinine Clearance 0 mL/min (70-130); Calcium 9.2 mg/dL (7.8-10.44); Carbon Dioxide 21 mmol/L (23-31); Chloride 107 mmol/L (98-107); Estimated GFR-MDRD 29; Globulin 2.9 g/dL (2.4-3.5); Glucose 282 mg/dL (83-110); Lipase 129 U/L (8-78); Potassium 4.2 mmol/L (3.5-5.1); Protein, Total 6.4 g/dL (5.8-8.1); Sodium 140 mmol/L (136-145)
[2019-01-31] MEDS ORDERED: Acetaminophen 650 MG Suppository ONE (03:34)
[2019-01-31] MEDS ORDERED: Acetaminophen 325 MG Suppository ONE (03:34)
[2019-01-31 03:44] LABS: Band 5 % (5-11); Hypochromia SLIGHT = 6-15 cells (100X) (0-5/hpf); Lymphocytes 17 % (21-51); MDiff Complete? YES; Macrocytosis SLIGHT = 6-15 cells (100X) (0-5/hpf); Monocytes 3 % (0-10); Neutrophil 75 % (42-75); Platelet Morphology Comment Appears Adequate
[2019-01-31 03:52] LABS: CKMB 0.8 ng/mL (0-6.6)
[2019-01-31] MEDS ORDERED: Meropenem 2 GM, Admixture Fee 1 EACH in Sodium Chloride 0.9% 100 ML IVPB SCH (04:00)
[2019-01-31] MEDS ORDERED: Acetaminophen 650 MG Suppository PR PRN (04:25)
[2019-01-31] MEDS ORDERED: Ondansetron ODT 4 MG TAB PO PRN (04:25)
[2019-01-31] MEDS ORDERED: Ondansetron PF 4 MG/2 ML Vial IVP PRN (04:25)
[2019-01-31] MEDS ORDERED: Meropenem 1 GM, Admixture Fee 1 EACH in Sodium Chloride 0.9% 100 ML IVPB SCH (04:30)
[2019-01-31] MEDS ORDERED: Vancomycin HCl 1.5 GM in Sodium Chloride 0.9% 250 ML 300 ML IVPB SCH (06:00)
[2019-01-31] MEDS ORDERED: Norepinephrine 4 MG/4 ML VIAL ONE ×2 (06:04→14:57)
[2019-01-31 06:18] LABS: Troponin I 0.034 ng/mL (< 0.028)
[2019-01-31] MEDS: Norepinephrine 8 MG in Dextrose 5% in Water 242 ML IVPB PRN ×2 (06:48→16:55)
--- NOTE | 2019-01-31 08:12 | HP ---
CODE STATUS: Full code as stated by son and he is the power of consumer attorney. TIME OF EVALUATION: 05:00 am CHIEF COMPLAINT: Nausea, vomiting, and diarrhea. HISTORY OF PRESENT ILLNESS: This is an 88-year-old male patient with past medical history of diabetes, leukemia, came to the hospital after having nausea, vomiting, and diarrhea reported for the past couple of days. associated with fever. No clear triggers, no alleviating factors. blood pressure has dropped during evaluation in er adn has not responded to ivf, will start vasopressors and treat for septic shock, pt has history of recurrent uti's and staghorn, kidney stones. REVIEW OF SYSTEMS: CONSTITUTIONAL: The patient had fever, chills, generalized weakness. RESPIRATORY: No cough, sputum production, or shortness of breath. CARDIOVASCULAR: No chest pain or palpitation. GASTROINTESTINAL: Patient has nausea, vomiting, and diarrhea. No abdominal pain. CENTRAL NERVOUS SYSTEM: No dizziness, headache, or feeling lightheaded. GENITOURINARY: No burning on urination. EXTREMITIES: No leg swelling. FAMILY HISTORY:Reviewed and non contributory for current presentation. All other systems were reviewed and negative except for the findings mentioned above. PAST MEDICAL HISTORY: Positive for CLL, hypertension, kidney stones, congestive heart failure, arrhythmia, treated with AICD, microcytic anemia, horseshoe kidney, prostate cancer, diabetes, hyperlipidemia, Parkinson, CHF with last EF of 35%, chronic UTIs. PAST SURGICAL HISTORY: The patient had eye surgery, gallbladder stent removed, cholecystectomy, heart surgery as an infant, and tonsillectomy. SOCIAL HISTORY: The patient lives in home with son. The son is the power of consumer attorney. ALLERGIES: NO KNOWN DRUG ALLERGIES. REPORTED MEDICATIONS: 1. Imbruvica. 2. Nizoral. 3. Potassium chloride. 4. Sertraline. 5. Simvastatin. 6. Tamsulosin. 7. Acetaminophen. 8. Allopurinol. 9. Eliquis. 10. Carbidopa levodopa. 11. Cholecalciferol. 12. Carvedilol. 13. Donepezil. 14. Finasteride. 15. Folic acid. 16. Furosemide. 17. Gabapentin. 18. Topiramate. FAMILY HISTORY: Reviewed, noncontributory for current presentation. PHYSICAL EXAMINATION: VITAL SIGNS: On presentation, blood pressure 181/137, blood pressure has continuously dropped needing vasopressors, with heart rate 83, respiratory rate was 22, oxygen saturation was 96%, temperature 101.6. GENERAL APPEARANCE: The patient is alert and oriented, not in acute distress. HEENT: Eyes, normal conjunctivae. Dry oral mucosa. Anicteric. No JVD. RESPIRATORY: Bilateral air entry. No rales or wheezes. Symmetric expansion. CARDIOVASCULAR: Normal rate. Regular rhythm. No murmurs. No gallop. Bilateral leg edema. ABDOMEN: Soft, decreased bowel sounds. MUSCULOSKELETAL: Baseline range of motion and strength. SKIN: Warm, intact. No pallor. No rash. No redness. Capillary refill seems to be intact. NEUROLOGIC: No evidence of any new focal weakness. Cranial nerves seem to be intact. PSYCHIATRIC: Patient is in good mood. No anxiety. Optimal judgment. IMAGING DATA: EKG, AV sequential dual chamber electronic pacemaker at the rate of 74, QRS 138, QT corrected 499. LABORATORY DATA: Reviewed. The patient has white count 28.8, hemoglobin 11.9, MCV 102, platelet count 376. Chemistry; sodium 140, potassium 4.2, chloride 107, carbon dioxide 21, anion gap 16, BUN 29, creatinine 2.19, GFR 29, glucose 282. Lactic acid 4.9, calcium 9.2, total bilirubin 0.6. LFTs were negative. Troponin 0.030. Lipase 129. ASSESSMENT AND PLAN: The patient will be placed in the hospital with following medical problems; 1. Possible septic shock. The patient is hypertensive with lactic acidosis. The patient is immunosuppressed due to CLL, the patient had fever today. We will start broad-spectrum antibiotics, send cultures. Chest x-ray is pending. UA is pending. We will follow cultures and adjust as per sensitivity. 2. Chronic lymphocytic leukemia, this places the patient at risk for complications. 3. Lactic acidosis secondary to possible sepsis, also we should have into consideration lactic acidosis type B from malignancy. We will repeat levels as per sepsis protocol. If not improving, we will consider contacting Oncology for any further recommendations. 4. Microcytic anemia. This is likely secondary to malignancy. This can be followed as outpatient. 5. Acute on chronic kidney injury with an increase in creatinine of 0.3 mg/dL. We will hydrate. It could be secondary to dehydration from diarrhea. We will monitor the patient and treat accordingly. 6. Mildly elevated troponin. This could be secondary to a [id number] myocardial infarction type 2 secondary to sepsis or kidney failure. 7. Uncontrolled hypertension. The patient presented with initial very high blood pressure and felt due to sepsis. We will hold any anti-hypertensive medications at this point. 8. History of congestive heart failure. Last EF mentioned in chart was 35%, so systolic dysfunction. The patient is in shock, giving fluids. Will monitor fluid balance, patient to get vasopressors. 9. History of recurrent urinary tract infection, that might be the source for infection. Order for urine has been placed, I will follow the results. 10. Hyperlipidemia. Low-cholesterol diet is advised. Reconcile home medications. 11. History of Parkinson's disease, reconcile home medications once updated to avoid withdrawals. 12. Deep venous thrombosis prophylaxis. 13. History of pacemaker. The patient has a paced rhythm on the EKG. Job ID: [id number] [facility]
--- NOTE | 2019-01-31 08:36 | RAD ---
CHEST 1 VIEW: HISTORY: Pneumonia. COMPARISON: 07/01/2018. FINDINGS: Cardiac silhouette is magnified and enlarged. Pulmonary vasculature accentuated by shallow inspirati on. Mediastinum is midline with aortic calcification, dual-lead left subclavian cardiac electronic d evice, and right subclavian central venous catheter. The tip overlies the right atrium. Left hemidiaphragm not well visualized, favored to be obscured. Soft tissue density mass over the ri ght lung is stable. No evidence of pneumothorax. IMPRESSION: 1. Left basilar infiltrate, suggestive of pneumonia. Consider upright PA and lateral views of the c hest when patient can undergo that exam. 2. Right subclavian central venous catheter in good radiographic position. 3. Chronic-type findings are stable. POS: ADRIÁN
[2019-01-31] MEDS ORDERED: Vancomycin HCl 1 GM in Premix Bag 1 BAG IVPB SCH (09:00)
[2019-01-31] MEDS ORDERED: Rocuronium Bromide 10 MG/ML (10ML VIAL) ONE (09:45)
[2019-01-31] MEDS ORDERED: PHENYLEPHRINE-NS 100 MCG/ML 10 ML SYRINGE ONE (09:45)
[2019-01-31] MEDS ORDERED: Dexamethasone 20 MG/5 ML VIAL ONE (09:45)
[2019-01-31] MEDS ORDERED: Succinylcholine Chloride 20 MG/ML 10 ml SYRINGE FS ONE (09:45)
[2019-01-31] MEDS ORDERED: Lidocaine 2% PF 5 ML VIAL ONE (09:45)
[2019-01-31 10:16] LABS: Troponin I 0.036 ng/mL (< 0.028)
--- NOTE | 2019-01-31 11:55 | CT ---
CT abdomen and pelvis noncontrast HISTORY: Sepsis. Renal stones. Hematuria. Flank pain. FINDINGS: Mild infiltrate at the left lung base. Small amount of bilateral pleural fluid. Mild atelec tasis right lung base. Soft tissue density mass within the right lung is partially visualized and has been documented to be stable. Horseshoe configuration of the kidney is again demonstrated with multiple irregular stones similar in appearance to the 07/01/2018 CT exam. There is now moderate distention of the right renal collecting system and proximal ureter. Multiple irregular shaped stones are stacked along several centimeters of the mid to distal right ureter. The largest stones are the more superior stones, measuring up to 0.8 cm diameter. Extensive stranding with moderate fluid in the right retroperitoneum indicating rupt ure of the collecting system. The left renal collecting system and ureter are decompressed. Benavides catheter decompresses the urinary bladder. Lack of contrast limits evaluation for other abnormalities. Gallbladder surgically absent. Prominent degenerative changes lumbar spine. Calcification throughout the arterial structures. IMPRESSION: High-grade obstruction of the mid to distal right ureter due to multiple, stacked calcifi cations. Evidence of rupture of the right renal collecting system. Horseshoe kidney, multiple stones, and other chronic-type findings are otherwise stable. Findings were discussed with Dr. Tejada at the time of the exam.
[2019-01-31] MEDS ORDERED: MEROPENEM 1 GM/50 ML 1 GM in Premix Bag 1 BAG IVPB SCH (12:00)
[2019-01-31] MEDS: Sodium Chloride 0.9% 1,000 ML IV SCH ×3 (12:21→16:53)
[2019-01-31] MEDS ORDERED: Fentanyl 100 MCG/2 ML VIAL ONE (13:54)
[2019-01-31] MEDS ORDERED: Midazolam HCl 2 mg/2 ml Vial ONE (13:55)
[2019-01-31] MEDS ORDERED: Ketamine 50 MG/ML (10ML VIAL) ONE (13:55)
[2019-01-31] MEDS ORDERED: Iothalamate Meglumine 60% 50 ML VIAL FS ONE (13:56)
[2019-01-31] MEDS ORDERED: SUGAMMADEX SODIUM 500 MG/5 ML VIAL ONE (15:15)
--- NOTE | 2019-01-31 15:25 | RAD ---
EXAM: XR IVP Retrograde PROVIDED CLINICAL HISTORY: Horseshoe-shaped kidney with obstructing right ureteral calculi and sepsis. COMPARISON: Noncontrast CT on 01/31/2019. FINDINGS/IMPRESSION: 3 images from a retrograde right urogram are submitted for interpretation. Veterinary Surgery Technologist image demonstrates b ilateral renal calculi with calcifications overlying the right sacrum shown to represent right ureteral calculi on recent CT scan exam. Subsequent imaging demonstrates opacification of a dilated r ight renal collecting system of the horseshoe kidney with a right ureteral stent in place with proximal portion overlying the right renal collecting system and distal portion overlying the expecte d location of the urinary bladder. Surgical clips overlie the right upper quadrant. Correlation with intraoperative findings is recommended.
--- NOTE | 2019-01-31 15:36 | CON ---
DATE OF CONSULTATION: 01/31/2019 REASON FOR CONSULTATION: Hematuria, history of sepsis. HISTORY OF PRESENT ILLNESS: Mr. Rowland is an 88-year-old male with history of prostate cancer, followed by [facility], treated with Casodex; questionable Lupron in the past. He is a poor historian, does confirm that he is solely treated with Casodex.. The patient was previously followed Dr. Soumya Mcknight, she saw him as an inpatient consult for UTI. She proceeded to perform a cystoscopy, circumcision under MAC on April 2018 in hopes that circumcision would reduce his history of recurrent UTI. He has been provided tamsulosin b.i.d., finasteride by Dr. Mcknight as he had postop urinary retention in the remote past, status post cholecystectomy. She was working him up for GreenLight laser prostatectomy, however due to his frail nature, decided to observe. He has a history of bilateral renal lithiasis, right ureteral stones with mild dilation previously on CT measuring 9 mm which she was aware of and opted not to address his stones as there was concern regarding definitive stone treatment. His last PSA of record is 0.05 in April 2018. He is followed by Dr. Mccann for history of leukemia , on observation . Also has seen Dr. Alfred, followed by Cardiology due to history of CHF.afib anticoagulant with Eliquis. He came in due to symptoms of malaise, abdominal pain. In the ER, his temperature was 101.6, blood pressure 64/41. Due to hypotension, high fever, he is currently in the ICU for sepsis, on pressure support. I was called this morning as nursing staff attempted to place a Benavides catheter for strict I's and O's as he is in septic shock, which went in without significant issues; however, hematuria was noted subsequently with no significant output. Nursing staff did try to irrigate the Benavides and got some fluid back. No obvious clots were appreciated. He has not had significant urine output with the Benavides catheter. CT obtained this morning per my request with clinical history provided to me demonstrates Benavides catheter in balloon, however, demonstrates extensive bilateral kidney stones and a horseshoe kidney with high-grade obstruction of the right ureter with perinephric stranding, with fluid in the retroperitoneal cavity consistent with rupture of the collecting system. PAST MEDICAL HISTORY: Horseshoe kidney; history of prostate cancer, on watchful waiting, active surveillance by the [facility], last PSA 0.05 in April 2018; chronic lymphocytic leukemia; hypertension; history of kidney stones with horseshoe kidney CHF, followed by Dr. Shin; history of arrhythmia; history of AICD; hypertension; Parkinson's; CHF, last ejection fraction 35%; history of recurrent UTI. Per review of records, his last positive urine culture in 2014 demonstrating pansensitive, ESBL negative Klebsiella. 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 ALLERGIES: NO KNOWN DRUG ALLERGIES. CURRENT MEDICATIONS: Include; 1. Tylenol. 2. Casodex. 3. Aricept. 4. Pepcid. 5. Meropenem. 6. on Levophed. 7. Zofran. 8. Zoloft. 9. Flomax b.i.d. 10. Vancomycin. HOME MEDICATIONS: Include; 1. Imbruvica. 2. Nizoral. 3. Potassium chloride. 4. Sertraline. 5. Simvastatin. 6. Tamsulosin. 7. Allopurinol. 8. Eliquis. 9. Carbidopa and levodopa. 10. Donepezil. 11. Finasteride. 12. Lasix. 13. Gabapentin. 14. Topiramate. REVIEW OF SYSTEMS: Ten-point review of systems as above, otherwise noncontributory, suboptimal due to poor historian. PHYSICAL EXAMINATION: VITAL SIGNS: Currently, blood pressure 108/59, heart rate 90. GENERAL: The patient is an elderly male. He is a poor historian. He is oriented x1. Therefore, history obtained per chart. The patient is resting, however, easily arousable. HEENT: Grossly unremarkable. HEART: Regular rate. LUNGS: Clear. ABDOMEN: Morbidly obese, protuberant. He does have right CVA tenderness. : Uncircumcised. Meatus is unremarkable. Benavides catheter demonstrates red- tinged urine. EXTREMITIES: No cyanosis, clubbing, or edema. DIAN demonstrates new tiny subtle nodularity in the right mid apex. This is very subtle. I do not feel any sinister DIAN such as gross nodularity, induration of concern. PSYCHIATRIC: Difficult to delineate due to his mental status currently. Affect appears to be appropriate. LABORATORY DATA: White count of 28,000. Baseline white count variable from 11 to 22. White count 11, platelet 276, INR is 1.0, PTT is 28, that was back in August of 2016. Creatinine is 2.1. Baseline creatinine is variable from 1.4 to 2.3. Hemoglobin A1c 5.9. UA is not obtained on this admission. Prior history of urine culture in 2014 demonstrates Klebsiella UTI, pansensitive, ESBL negative. CT of the abdomen and pelvis with stone protocol per my request this morning at January 31, 2019, demonstrates extensive bilateral renal calculi with horseshoe kidney. There are bilateral renal calculi per my review, the right kidney moiety demonstrates 1.6, 1.5, 1.7 cm stone s Multiple stones, calcific density in the isthmus measuring approximately 1.3 cm. Left renal moiety also has multiple renal lithiasis: 2 cm, 1.5 cm, 2.9 cm. Renal pelvic stone moiety is also appreciated about 2 cm, Hounsfield unit of over 1000. Right ureteral calculi at the level of L5 measuring 5 mm, 8 mm with extensive hydronephrosis and perinephric stranding. CT prostate measures 3.3 x 3.5 x 3.9 cm. Benavides catheter is confirmed to be within the bladder. Evidence of rupture the right renal collecting system, answers moderate fluid in the retroperitoneum CT of the chest, abdomen, and pelvis dated July 01, 2018, demonstrates cervical lymphadenopathy, horseshoe kidney, extensive bilateral nephrolithiasis, BPH. 04/2018: Horseshoe kidney with extensive bilateral renal calculi, extensive partially obstructing right ureteral calculi. Tiny calcifications within the bladder. Cluster of right ureteral stone measuring 9 mm smaller grouping more distal 5 mm IMPRESSION AND PLAN: Mr. Rowland is an 88-year-old male with history of severe CHF; history of arrhythmia; history of chronic lymphocytic leukemia; history of kidney stone; congestive heart failure; history of prostate cancer, [facility], last PSA of 0.05 in April 2018, currently admitted for septic shock. CT demonstrates obstructing right ureteral calculi with perinephric stranding, posterior collecting system with significant hydronephrosis. Unfortunately, percutaneous nephrostomy tube would be challenging, given his body habitus and horseshoe kidney, extensive perinephric stranding, moreover, he has been on Eliquis. As such, I do not have a choice but to proceed with cysto, right stent. The patient informed, he desires to proceed. We will need to monitor back in ICU after surgery as he remains high risk for surgical intervention. Formal cardiac consultation is advised. As prior CT demonstrates long-standing obstructing stone dating back April 2018, possibility of compromised function right kidney moiety. To OR emergent right stent Job ID: [id number] MTDD
--- NOTE | 2019-01-31 15:52 | PDOC.HOSPP ---
- Subjective Subjective: Patient seen and examined in ICU. Patient critically ill on vasoactive medications to maintain MAP >65. Patient answering simple questions appropriately, though much of history is limited due to mental status. Patient does endorse some right flank/ abdominal pain. Breathing well. With history of prostate CA a freeman cath has been difficult to maintain and Urology planning cystoscopy. - Objective Vital Signs & Weight: Vital Signs (12 hours) Temp 01/31/19 12:00 98.3 F 01/31/19 07:00 98.6 F Weight Weight 3.506 oz Most Recent Monitor Data Heart Rate from ECG 90 NIBP 106/54 NIBP BP-Mean 71 Respiration from ECG 25 SpO2 98 I&O: 01/30/19 01/31/19 02/01/19 06:59 06:59 06:59 Output Total 0 Balance 0 Result Diagrams: 01/31/19 03:04 01/31/19 02:45 ROS - Medication Medications: Active Medications Generic Name Dose Route Start Last Admin Trade Name Freq PRN Reason Stop Dose Admin Sodium Chloride 1,000 mls @ 100 mls/hr 01/31/19 04:30 01/31/19 12:44 Normal Saline 0.9% IV Not Given .Q10H BERNARDINO Vancomycin HCl 1.5 gm/ Sodium 300 mls @ 200 mls/hr 01/31/19 06:00 01/31/19 06 :48 Chloride IVPB 300 mls Q24HR@0600 BERNARDINO Administration Norepinephrine Bitartrate 8 mg 250 mls @ 0 mls/hr 01/31/19 06:15 01/31/19 06: 48 / Dextrose/Water IVPB 250 mls INF PRN Administration TO MAINTAIN MAP > 65 Protocol As Directed - Exam ill appearing Eye: PERRL ENT: moist mucosa Neck: supple, symmetric Heart: RRR, no murmur Respiratory: no wheezes, no ronchi. negative: normal chest expansion Respiratory - other findings: Poor air movement secondary to body habitus Gastrointestinal: soft, tender to palpation (Right side/ flank) Gastrointestinal - other findings: Obese Extremities: 1+ LE edema Neurological: no focal deficits, no new deficit, facial droop. negative: hemiplegia Musculoskeletal: generalized weakness Psychiatric: oriented to person, lethargic Hosp A/P - Plan Plan: ICU Pulmonology/CC consultation, recommendations appreciated Cardiology consultation, recommendations appreciated Urology consultation, recommendations appreciated Vasoactive medications as needed to maintain MAP >65 Broad spectrum ABX IV fluid resuscitation in the setting of reduced EF CHF Patient requiring cystoscopy Elevated cardiac risk Echo Resume home medications as able
--- NOTE | 2019-01-31 16:43 | CON ---
DATE OF CONSULTATION: 01/31/2019 CONSULTING PHYSICIAN: Dr. Jimenez. REASON FOR CONSULTATION: Septic shock. HISTORY OF PRESENT ILLNESS: The patient is an 88-year-old man, who came to the hospital last night with nausea, vomiting, diarrhea for 2 days prior to admission. He is complaining of some abdominal pain on palpation. He has had no real cough, chest congestion, or shortness of breath. PAST MEDICAL HISTORY: 1. Chronic lymphocytic leukemia. 2. Hypertension. 3. Nephrolithiasis. 4. Heart failure. 5. Cardiac arrhythmias. 6. AICD placement. 7. Horseshoe kidney. 8. Prostate cancer. 9. Diabetes mellitus type 2. 10. Hyperlipidemia. 11. Parkinson disease. 12. Systolic heart failure with EF 35%. 13. Chronic UTIs. PAST SURGICAL HISTORY: 1. Cholecystectomy. 2. Gallbladder stent with removal. 3. Pediatric heart surgery. 4. Eye surgery. 5. Tonsillectomy. SOCIAL HISTORY: Nonsmoker. Does not consume alcohol. ALLERGIES: NONE. MEDICATIONS: Prior to admission; 1. Imbruvica. 2. Nizoral. 3. Potassium chloride. 4. Sertraline. 5. Simvastatin. 6. Tamsulosin. 7. Acetaminophen. 8. Allopurinol. 9. Eliquis. 10. Carbidopa/levodopa. 11. Cholecalciferol. 12. Carvedilol. 13. Donepezil. 14. Finasteride. 15. Folate. 16. Furosemide. 17. Gabapentin. 18. Topiramate. FAMILY HISTORY: Unremarkable. PHYSICAL EXAMINATION: VITAL SIGNS: Pulse 78, blood pressure 105/59, O2 saturation 97%, respiratory rate 23. GENERAL: He is lying in bed, in no acute distress. HEENT: Unremarkable. NECK: No adenopathy or JVD. LUNGS: Fairly clear anteriorly. CARDIAC: S1, S2. Regular to tachycardic. Paced at times. ABDOMEN: Diffuse and mild tenderness to palpation. No rebound. EXTREMITIES: No clubbing, cyanosis, or edema. LABORATORY DATA: Sodium 140, potassium 4.2, BUN 29, creatinine 2.2, chloride 107, CO2 is 21. Lactate 4.9. Troponin 0.034. Lipase 129. White blood cell count 28.8, hematocrit 37.4, and platelet count 376. Chest x-ray showed no overt mass, effusion, or infiltrate. He has an old hematoma in the right chest. ASSESSMENT: I suspect he may have some type of intraabdominal process such as diverticulosis, diverticulitis. UTI would also be in the differential. I do not suspect pneumonia. RECOMMENDATIONS: 1. Hydration as you are doing. 2. Broad-spectrum IV antibiotics. 3. Benavides. Obtain urine culture. 4. Start Pepcid for GI prophylaxis. 5. Need his home medications restarted. Job ID: [id number]
--- NOTE | 2019-01-31 17:45 | CON ---
DATE OF CONSULTATION: 01/31/2019 REASON FOR CONSULTATION: Atrial fibrillation, anticoagulation, and hematuria. PRIMARY INSPECTOR [employer]: Riley Shin MD. HISTORY OF PRESENT ILLNESS: Mr. Rowland is a pleasant 88-year-old white gentleman who comes to the hospital for fever and chills. He has been having nausea, vomiting, and diarrhea for the last 2 days as well as abdominal pain. He was evaluated and admitted for septic shock, eventually was found to have hematuria and the imaging of the kidneys show evidence of obstructing right ureteral calculi with perinephric stranding. He is on Eliquis for history of chronic AFib and this has been stopped given his hematuria. He has a history of cardiomyopathy, EF at about 30% to 35%, AICD is in place. He had a heart catheterization in 2017, that showed moderate disease mostly. His last EF on echo was 30% to 35%. Currently, he denies any chest pain, tightness, or pressure. No shortness of breath. His blood pressure dropped and he had to be put on pressors. PAST MEDICAL HISTORY: 1. CLL. 2. Hypertension. 3. History of nephrolithiasis in the past. 4. Chronic systolic heart failure. 5. History of chronic atrial fibrillation. 6. AICD in place. 7. Horseshoe kidney. 8. Prostate cancer. 9. Type 2 diabetes. 10. Hyperlipidemia. 11. Parkinson disease. 12. Chronic UTIs. SURGICAL HISTORY: 1. Cholecystectomy. 2. Gallbladder stent with removal. 3. Heart surgery as a pediatric patient. 4. Eye surgery. 5. Tonsillectomy. SOCIAL HISTORY: No alcohol, tobacco, or drugs. FAMILY HISTORY: Noncontributory. OUTPATIENT MEDICATIONS: 1. Tamsulosin. 2. Sertraline. 3. Famotidine. 4. Donepezil. 5. Casodex. 6. Eliquis. 7. Triamcinolone ointment. 8. Simvastatin. 9. Senokot. 10. Florastor. 11. Potassium chloride. 12. MiraLAX. 13. Protonix. 14. Montelukast. 15. Lisinopril. 16. Ketoconazole. 17. Furosemide. 18. Folic acid. 19. Fluocinonide. 20. Finasteride. 21. Vitamin D3. 22. Coreg. 23. Carbidopa/levodopa. 24. Allopurinol. 25. Acetaminophen. ALLERGIES: NO KNOWN DRUG ALLERGIES. REVIEW OF SYSTEMS: A 12-point review of systems was done and was all negative unless stated in history of present illness. PHYSICAL EXAMINATION: VITAL SIGNS: Temperature 98.3, pulse 76, respiratory rate 24, and saturation 98 % on 3L nasal cannula. GENERAL: Awake, alert, oriented to person and place, difficulty with time, in no distress. HEENT: Normocephalic and atraumatic. NECK: Supple. LUNGS: Clear. CARDIOVASCULAR: S1 and S2. No S3 or S4. No murmurs. ABDOMEN: Soft. Positive bowel sounds. EXTREMITIES: No edema. SKIN: Warm and dry. LABORATORY DATA: Laboratory work was reviewed. CBC with a white count of 28, hemoglobin 11, hematocrit 37, and platelet count 376. Chemistries were unremarkable. Lactic acid was 4.9. Creatinine of 2.1 and GFR of 29. Troponin is 0.03, 0.03, and 0.03. Albumin of 3.5 and lipase of 129. ASSESSMENT AND PLAN: 1. Septic shock. 2. Chronic atrial fibrillation, on chronic anticoagulation with Eliquis. 3. Hematuria secondary to an obstructive right ureteral calculus with perinephric stranding. 4. Type 2 demand type of ischemia. PLAN: 1. Agree with holding Eliquis and any aspirin for the foreseeable future. His risk of stroke is much lower than the risk of the Eliquis being on board given his current situation with his kidneys. We will hold indefinitely for now. The patient understands the risk of stroke is just slightly higher than normal, but risk of bleeding is higher being on Eliquis. 2. Troponin is mildly elevated, likely related to his septic type picture. 3. From his systolic function point of view, his EF is reduced. He has an AICD in place and his coronary anatomy shows moderate disease mostly. 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 May proceed with surgery as advised per Urology. Thank you for letting me to participate in the care of your patient. We will follow. Job ID: [id number] [facility]
[2019-01-31] MEDS: Hyoscyamine Sulfate SL 0.125 mg Tablet SL SCH (17:47)
[2019-01-31] MEDS: Tamsulosin HCl 0.4 MG CAP PO SCH (20:08)
[2019-01-31] MEDS ORDERED: Apixaban 2.5 MG TAB PO SCH (21:00)
--- NOTE | 2019-01-31 21:44 | OP ---
DATE OF PROCEDURE: 01/31/2019 PREOPERATIVE DIAGNOSES: 1. Mr. Rowland is an 88-year-old male, with history of congestive heart failure, history of prostate cancer. 2. History of horseshoe kidney. 3. Known history of multiple renal calculi, ureteral calculi, previously on observation by Dr. Mcknight. 4. Presents with urosepsis, septic shock. 5. Severe hydronephrosis of the right horseshoe kidney moiety. POSTOPERATIVE DIAGNOSES: 1. Mr. Rowland is an 88-year-old male, with history of congestive heart failure, history of prostate cancer. 2. History of horseshoe kidney. 3. Known history of multiple renal calculi, ureteral calculi, previously on observation by Dr. Mcknight. 4. Presents with urosepsis, septic shock. 5. Severe hydronephrosis of the right horseshoe kidney moiety. PROCEDURES PERFORMED: Cystoscopy, right retrograde pyelogram, 6 x 22 double-J ureteral stent placement, 22-Trinidadian 3-way Benavides catheter over guidewire assist, 30 mL insufflated. ANESTHESIA: General. COMPLICATIONS: None apparent. DISPOSITION: Extubated to ICU in guarded condition. INDICATIONS FOR THE PROCEDURE AND HISTORY: Mr. Rowland is an 88-year-old male, with history of prostate cancer followed by the [facility], known history of horseshoe kidney with multiple extensive bilateral renal calculi, right ureteral calculi, previously followed by Dr. Mcknight on observation. He presented today early this morning with history of fever, hypotension. He is observed in ICU and Urology was consulted as he had hematuria with Benavides catheter placement for strict I's and O's. CT demonstrated high-grade obstruction of the right ureter of the horseshoe kidney, left kidney is decompressed; however, there are extensive bilateral renal calculi. Obstructing ureteral stone seen at the level of S1, S2 ureter. Discussed with the patient regarding CT findings, critical nature of his sepsis,with perforated collecting system advised regarding ureteral stent. I informed the patient that nephrostomy tube would be ideal; however, due to morbid obesity, congenital abnormality of horseshoe kidney, moreover as he is on Eliquis, nephrostomy tube is unable to be performed by Interventional Radiology; therefore, he presents for cysto and stent placement. Risks and complications including, but not limited to, bleeding, pain, infection, urosepsis, PE, DVT, perioperative morbidity and mortality was reviewed with him in detail and he desired to proceed. DESCRIPTION OF PROCEDURE: After an informed consent was signed, the patient taken to the operating room, placed in a dorsal lithotomy position. He had received broad-spectrum antibiotics on floor with meropenem. A 21-Trinidadian cystoscope was utilized for cystoscopy, which demonstrated normal anterior urethra. There was some evidence of irritation of the Benavides catheter with some edema in the bulbar proximal penile urethra with no gross false passage. Prostatic urethra appeared to be somewhat irritated from Benavides catheter placement, however, no false passage. He does have moderately obstructing bilobar hyperplasia with high median bar. Bladder was entered, which demonstrated the UOs left was unremarkable in normal anatomical location approximately 5 mm or 6 mm from the bladder neck. The left UO was obvious and easily identified. The right UO was difficult to identify. We followed the trigone to the right side and we were able to find what appeared to be a right UO, appeared to be small as he has had no significant output from the right kidney, likely due to high-grade obstruction. I tried to intubate the right UO was difficult given its small caliber, therefore we utilized a 0.35 Sensor wire Glidewire which had difficulty passing. Using angled Glidewire, we were able to get into the right UO, then subsequently passed the open-ended catheter to the level of the stone at the level of S1 to ureter. I had difficulty opacifying the collecting system proximal to this as there was high-grade obstruction. Faint contrast was seen just proximal to the stone. I did not see an extravasation of contrast at this point. I used a combination of 0.35 straight Sensor wire and angled Glidewire. We had difficulty passing the wire with high-grade obstruction; therefore, I did use 1:1 viscous lidocaine with contrast. We opacified and lubricated this region further. With further manipulation, I was able to negotiate an angled Glidewire proximally, then subsequently passed the open-ended catheter to the level of the upper pole. It was difficult to pass the open-ended catheter consistent with high-grade obstruction. At this time, we opacified the collecting system, confirming proper placement of the open-ended catheter in the upper pole of renal pelvis. There was some extravasation of contrast which is a high-grade hydronephrosis., withb known perforated collecting system on CT, Likely thinning of the parenchyma. A 0.35 Sensor wire was then placed into the right upper pole. Some of the wire did traverse outside the collecting system. We pulled back so that it is in the upper pole. A 6 x 22 double-J ureteral stent was passed with some manipulation due to an obstructing stone; however, I was able to successfully pass the stent to the upper pole and adequate redundancy in the bladder. Of note, once we passed a 5-Trinidadian open- ended catheter, we did obtain a culture from the right collecting system for urine culture. He did have significant hematuria old venous caliber coming from the right kidney consistent with high-grade obstruction and anticoagulation status Due to significant hematuria that I anticipate to as he is on Eliquis, I did try to pass a 22-Trinidadian; there was some hang up at the prostatic urethra and bladder neck due to high median bar. Therefore, a 0.35 Super Stiff wire in the bladder and made a Councill 3-way using 22-Trinidadian and passed the 22-Trinidadian Benavides over a guidewire assist without significant issues. 30 mL insufflated. Urine output demonstrates hematuria component with venous bleeding of venous old blood. CBI was initiated as there was significant hematuria as anticipated. He will be monitored with CBI and follow culture. The patient transported to ICU in critical guarded condition. Job ID: [id number] [facility]
--- NOTE | 2019-01-31 22:38 | CON ---
DATE OF CONSULTATION: 01/31/2019 REASON FOR CONSULTATION: CLL/SLL. HISTORY OF PRESENT ILLNESS: Mr. Rowland is an 88-year-old gentleman, who was diagnosed with CLL/SLL found incidentally on a hospitalization in June 2018. He was having some night sweats with fatigue and was started on reduced dose ibrutinib, which he has been on for several months. He presented to the emergency room with sepsis. He was noted to have obstructing right ureteral calculi with perinephric stranding. Dr. Tejada saw the patient and placed a stent. The patient was seen at bedside postoperatively, he remained sedated. No family at bedside. PAST MEDICAL HISTORY: 1. CLL/SLL. 2. Parkinson disease. 3. Congestive heart failure. 4. Diabetes mellitus 2. 5. Hypertension. 6. Hyperlipidemia. 7. Asthma. 8. Kidney stones. 9. Atrial fibrillation. 10. Prostate cancer. 11. Arthritis. PAST SURGICAL HISTORY: 1. Bladder washouts. 2. Cholecystectomy. 3. Appendectomy. 4. AICD placement. 5. Tonsillectomy. HOME MEDICATIONS: 1. Simvastatin 40. 2. Sertraline 50. 3. Proscar 5. 4. Ketoconazole foam. 5. Ibrutinib. 6. Glipizide. 7. Gabapentin. 8. Furosemide. 9. Folic acid. 10. Flomax. 11. Eliquis. 12. Donepezil. 13. Colace. 14. Coreg. 15. Carbidopa-levodopa. 16. Allopurinol. FAMILY HISTORY: Mother had a colon cancer. Sister had a brain cancer. SOCIAL HISTORY: , lives with his spouse. Former smoker. No alcohol or illicit drug use. REVIEW OF SYSTEMS: Unable to obtain secondary to sedation. PHYSICAL EXAMINATION: VITAL SIGNS: Temperature 98.3, pulse is 90, respiratory rate is 25, BP is 106/54, he is 98% on 3 L. GENERAL: Well-developed, well-nourished male, in no acute distress. HEENT: Normocephalic, atraumatic. NECK: Supple. CV: Regular rate and rhythm. LUNGS: Clear anterior. ABDOMEN: Soft and nontender. Bowel sounds are positive. EXTREMITIES: 1+ bilateral lower extremity edema. SKIN: No rash. HEMATOLOGICAL: Scattered bruising. NEUROLOGICAL: Unable to assess. PERTINENT LABS AND X-RAYS: Current WBCs are 28.8, hemoglobin 11.9, hematocrit 37.4, platelet count 376,000, 75% neutrophils, 5% bands, 17% lymphocytes. Sodium 140, potassium 4.2, chloride 107, CO2 is 21, BUN 29, creatinine 2.19. Lactic acid is 1. Calcium 9.2, bilirubin 0.6, AST is 19, ALT is 13, alkaline phosphatase is 122. Troponin is 0.036. Serum total protein 6.4, albumin 3.5, globulin is 2.9, lipase is 129. ASSESSMENT: 1. Chronic lymphocytic leukemia/small lymphocytic lymphoma. 2. Obstructing right ureteral calculi, status post stent. 3. Hematuria. 4. Congestive heart failure. 5. History of prostate cancer. DISCUSSION: The patient's ibrutinib should be held while he is in the hospital and until he recovers. He has a followup appointment with Dr. Mccann, which can be moved forward. He has been tolerating ibrutinib well with WBC count of around 12, so his leukocytosis is likely due to sepsis. We will defer to Urology and [facility] for treatment of this. We will follow his hospital course remotely. Thank you for the consult. Job ID: [id number]
[2019-02-01] MEDS: Hyoscyamine Sulfate SL 0.125 mg Tablet SL SCH ×4 (00:09→18:51)
[2019-02-01] MEDS: MEROPENEM 1 GM/50 ML 1 GM in Premix Bag 1 BAG IVPB SCH ×2 (00:09→12:13)
[2019-02-01] MEDS: Acetaminophen 325 MG TAB PO PRN ×2 (01:50→15:13)
[2019-02-01 05:23] LABS: Vancomycin, Random 15.7 ug/mL (See Comment)
[2019-02-01 05:30] LABS: Anion Gap 16 mmol/L (10-20); BUN (Urea Nitrogen) 45 mg/dL (8.4-25.7); Calc. Creatinine Clearance 0 mL/min (70-130); Calcium 8.2 mg/dL (7.8-10.44); Carbon Dioxide 15 mmol/L (23-31); Chloride 113 mmol/L (98-107); Estimated GFR-MDRD 14; Glucose 160 mg/dL (83-110); Potassium 4.8 mmol/L (3.5-5.1); Sodium 139 mmol/L (136-145)
[2019-02-01 05:33] LABS: Band 2 % (5-11); Elliptocytes SLIGHT = 2-5 cells (100X) (0-1/hpf); Hemoglobin 7.9 g/dL (14.0-18.0); Lymphocytes 26 % (21-51); MDiff Complete? YES; Mean Corpuscular HGB CONC 33.3 g/dL (32.0-36.0); Mean Corpuscular Volume 99.2 fL (78.0-98.0); Mean Platelet Volume 8.2 fL (7.4-10.4); Monocytes 8 % (0-10); Neutrophil 64 % (42-75); Platelet Count 256 thou/uL (130-400); Platelet Morphology Comment Appears Adequate; RBC Distribution Width 12.7 % (11.5-14.5); White Blood Cell (WBC) Count 19.8 thou/uL (4.8-10.8)
[2019-02-01] MEDS: Vancomycin HCl 1 GM in Premix Bag 1 BAG IVPB SCH (05:46)
[2019-02-01 08:26] LABS: Clarity Extra Turbid (Clear)
[2019-02-01 08:28] LABS: Glucose, Urine (Dipstick) Unable to Interpret mg/dL (Negative); Leukocyte Unable to Interpret (Negative); Nitrite Unable to Interpret (Negative); Protein, Urine (Dipstick) Unable to Interpret mg/dL (Neg-Trace)
[2019-02-01 08:29] LABS: Bilirubin Unable to Interpret (Negative); Blood, Urine Large (Negative); Urobilinogen UNABLE TO INTERPRET mg/dL (Less than 2)
[2019-02-01 08:30] LABS: RBC/HPF Greater than 50 HPF (0-3)
[2019-02-01 08:31] LABS: Squamous Epithelial None Seen HPF (0-3)
[2019-02-01 08:32] LABS: Bacteria/HPF 3+ HPF (None Seen); WBC/HPF 21-50 HPF (0-3)
[2019-02-01 08:34] LABS: Urine Culture Reflex Yes Yes
[2019-02-01] MEDS ORDERED: Bicalutamide 50 MG TAB PO SCH (09:00)
[2019-02-01] MEDS: Famotidine 20 MG TAB PO SCH (09:29)
[2019-02-01] MEDS: Tamsulosin HCl 0.4 MG CAP PO SCH ×2 (09:29→21:18)
[2019-02-01] MEDS: Donepezil HCl 5 MG TAB PO SCH (09:30)
--- NOTE | 2019-02-01 09:50 | PRG ---
DATE OF SERVICE: 02/01/2019 SUBJECTIVE: The patient was found to have nephrolithiasis with hydronephrosis of his right horseshoe kidney yesterday. He was taken to the operating room for cystoscopy, pyelogram, and ureteral stent placement with Dr. Tejada yesterday. He is very much improved today. He has been weaned off the vasopressors. He still complains of some mild abdominal pain. OBJECTIVE: VITAL SIGNS: His temperature is 98.4, pulse 76, blood pressure 111/64. HEENT: Unremarkable. NECK: No JVD. CHEST: Clear to auscultation. CARDIAC: S1 and S2 . ABDOMEN: Mildly tender to superficial palpation. EXTREMITIES: No clubbing, cyanosis, or edema. LABORATORY DATA: White cell count 19.8, hematocrit 23.8, and platelet count 256. Sodium 139, potassium 4.8, chloride 113, CO2 of 15, BUN 45, creatinine 3.9, glucose 160. Cultures have not resulted yet. ASSESSMENT: 1. Septic shock secondary to obstructing ureteral calculi. 2. Status post ureteral stent placement. 3. Anemia. RECOMMENDATIONS: 1. Continue to follow the patient's labs closely with low threshold for transfusing. 2. Continue antibiotics and consolidate once results known. 3. Keep in CCU for the time being. Job ID: [id number]
--- NOTE | 2019-02-01 11:31 | PRG ---
DATE OF SERVICE: 02/01/2019 SUBJECTIVE: The patient appears to be more alert, awake, states that he does feel better. OBJECTIVE: VITAL SIGNS: Stable. He is afebrile, off pressors. LABORATORY DATA: White count decreased from 28 to 19, hemoglobin 7.9, platelet 256 creatinine 3.96, BUN 45. Urine culture preliminary is negative, I did obtain a UA from catheterization of the right kidney, demonstrating 3+ bacteria. Currently, on meropenem and vancomycin. IMPRESSION AND PLAN: 1. An 88-year-old male with history of horseshoe kidney, extensive bilateral renal calculi, known history of right ureteral calculi, presents with ruptured right collecting system, severe hydronephrosis of the right renal moiety, septic shock. 2. Status post postoperative day 1, cystoscopy, right retrograde, 6 x 22 double- J ureteral stent, three-way Benavides catheter placement. Significant old venous output was noted upon catheterization of the right collecting system. CT known to have perforated collecting system. Anticoagulation is to be on hold as he has hematuria. Continue broad-spectrum antibiotic therapy, meropenem, vancomycin. Monitor renal function. 3. History of prostate cancer on Casodex. 4. History of congestive heart failure. 5. History of atrial fibrillation. Cardiology following approved to hold anticoagulation given current circumstances. Condition remains guarded. Transfuse p.r.n. Job ID: [id number] [facility]
[2019-02-01] MEDS: Sodium Chloride 0.9% 1,000 ML IV SCH (12:19)
[2019-02-01] MEDS ORDERED: Sodium Bicarbonate 150 MEQ in Dextrose 5% in Water 1,000 ML IV SCH (14:15)
--- NOTE | 2019-02-01 15:07 | PDOC.HOSPP ---
- Subjective Subjective: Seen and examined in ICU. Clinically improved after required surgery. Now off vasopressors. Has hematuria, holding any anticoagulation. Still with abdominal pain. No other acute complaints. - Objective Vital Signs & Weight: Vital Signs (12 hours) Temp Pulse Ox 02/01/19 12:00 98.7 F 02/01/19 08:00 98.4 F 02/01/19 07:55 97 02/01/19 04:00 99.1 F Weight Weight 221 lb 12.56 oz Most Recent Monitor Data Heart Rate from ECG 75 NIBP 102/53 NIBP BP-Mean 69 Respiration from ECG 24 SpO2 94 I&O: 01/31/19 02/01/19 02/02/19 06:59 06:59 06:59 Intake Total 3445.8 380 Output Total 0 Balance 3445.8 380 Result Diagrams: 02/01/19 04:56 02/01/19 04:56 ROS - Medication Medications: Active Medications Generic Name Dose Route Start Last Admin Trade Name Freq PRN Reason Stop Dose Admin Acetaminophen 650 mg 01/31/19 04:25 02/01/19 01:50 Tylenol PO 650 mg Q4H PRN Administration Headache/Fever/Mild Pain (1-3) Bicalutamide 50 mg 02/01/19 09:00 02/01/19 09:29 Casodex PO 50 mg DAILY BERNARDINO Administration Donepezil HCl 5 mg 02/01/19 09:00 02/01/19 09:30 Aricept PO 5 mg DAILY BERNARDINO Administration Famotidine 20 mg 02/01/19 09:00 02/01/19 09:29 Pepcid PO 20 mg DAILY BERNARDINO Administration Hyoscyamine Sulfate 0.25 mg 01/31/19 18:00 02/01/19 12:20 Levsin Sl SL 0.25 mg Q6HR BERNARDINO Administration Norepinephrine Bitartrate 8 mg 250 mls @ 0 mls/hr 01/31/19 06:15 01/31/19 16: 55 / Dextrose/Water IVPB 250 mls INF PRN Administration TO MAINTAIN MAP > 65 Protocol As Directed Meropenem 1 gm/ Device 50 mls @ 100 mls/hr 02/01/19 00:00 02/01/19 12:13 IVPB 50 mls 0000,1200 BERNARDINO Administration Vancomycin HCl 1 gm/ Device 200 mls @ 200 mls/hr 02/01/19 06:00 02/01/19 05: 46 IVPB 200 mls Q24HR@0600 BERNARDINO Administration Sertraline HCl 50 mg 02/01/19 09:00 02/01/19 09:29 Zoloft PO 50 mg DAILY BERNARDINO Administration Tamsulosin HCl 0.4 mg 01/31/19 21:00 02/01/19 09:29 Flomax PO 0.4 mg BID BERNARDINO Administration - Exam NAD, awake alert Eye: PERRL, anicteric sclera ENT: normocephalic atraumatic, moist mucosa Neck: supple, symmetric, no JVD Heart: no gallops, no rubs, normal peripheral pulses Heart - other findings: S1 and S2 present Respiratory: no wheezes, no rales, no ronchi Respiratory - other findings: Decreased breath sounds secondary to body habitus. Gastrointestinal: soft, non-distended, normal bowel sounds, no rigidity, tender to palpation. negative: voluntary guarding Gastrointestinal - other findings: Obese. mildly tender to deep palpation. Extremities: no cyanosis Skin: normal turgor Neurological: no focal deficits, no new deficit Musculoskeletal: generalized weakness Psychiatric: oriented to person (At baseline, Forgetful.) Psychiatric - other findings: Knows self, does not know situation despite being told multiple times. Hosp A/P (1) CHF (congestive heart failure), NYHA class III Code(s): I50.9 - HEART FAILURE, UNSPECIFIED Status: Chronic (2) Acute on chronic renal failure Code(s): N17.9 - ACUTE KIDNEY FAILURE, UNSPECIFIED; N18.9 - CHRONIC KIDNEY DISEASE, UNSPECIFIED Status: Acute Qualifiers: Acute renal failure type: with other specified pathological lesion Chronic kidney disease stage: stage 3 (moderate) Qualified Code(s): N17.8 - Other acute kidney failure; N18.3 - Chronic kidney disease, stage 3 (moderate) (3) CLL (chronic lymphocytic leukemia) Code(s): C91.90 - LYMPHOID LEUKEMIA, UNSPECIFIED NOT HAVING ACHIEVED REMISSION Status: Chronic (4) Physical deconditioning Code(s): R53.81 - OTHER MALAISE Status: Chronic (5) UTI (urinary tract infection) Status: Acute Qualifiers: Urinary tract infection type: acute cystitis Hematuria presence: without hematuria Qualified Code(s): N30.00 - Acute cystitis without hematuria (6) Coronary artery disease Code(s): I25.10 - ATHSCL HEART DISEASE OF [place] CORONARY ARTERY W/O ANG PCTRS Status: Chronic Qualifiers: Coronary Disease-Associated Artery/Lesion type: [place] artery [place] vs. transplanted heart: [place] heart Associated angina: without angina Qualified Code(s): I25.10 - Atherosclerotic heart disease of [place] coronary artery without angina pectoris (7) DM type 2 (diabetes mellitus, type 2) Status: Chronic Qualifiers: Diabetes mellitus terminal supervisor insulin use: without terminal supervisor use Diabetes mellitus complication status: with unspecified complications (8) Dyslipidemia Code(s): E78.5 - HYPERLIPIDEMIA, UNSPECIFIED Status: Chronic (9) H/O prostate cancer Code(s): Z85.46 - PERSONAL HISTORY OF MALIGNANT NEOPLASM OF PROSTATE Status: Chronic (10) HTN (hypertension) Code(s): I10 - ESSENTIAL (PRIMARY) HYPERTENSION Status: Chronic Qualifiers: Hypertension type: essential hypertension Qualified Code(s): I10 - Essential (primary) hypertension (11) Macrocytic anemia Code(s): D53.9 - NUTRITIONAL ANEMIA, UNSPECIFIED Status: Acute (12) Nephrolithiasis Status: Acute (13) Obesity (BMI 30-39.9) Code(s): E66.9 - OBESITY, UNSPECIFIED Status: Chronic (14) Parkinson disease Code(s): G20 - PARKINSON'S DISEASE Status: Chronic (15) Abdominal pain Code(s): R10.9 - UNSPECIFIED ABDOMINAL PAIN Status: Acute Qualifiers: (16) Metabolic encephalopathy Code(s): G93.41 - METABOLIC ENCEPHALOPATHY Status: Resolved (17) Septic shock Code(s): A41.9 - SEPSIS, UNSPECIFIED ORGANISM; R65.21 - SEVERE SEPSIS WITH SEPTIC SHOCK Status: Resolved - Plan Plan: ICU Pulmonology/CC consultation, recommendations appreciated Urology consultation, recommendations appreciated Nephrology consultation, recommendations appreciated Cardiology consultation, recommendations appreciated Worsening UZMA, expected with shock on vasopressors, nephrolithiasis w/ hydro. If renal function continues to worsen may require HD Weaned off vasoactive medications as needed to maintain MAP >65 Broad spectrum ABX, de escilate to culture and sensitivity as able IV fluid resuscitation in the setting of reduced EF CHF S/p cystoscopy on 01/31/19 - see full op report for details Caution with volume overload, patient with UZMA in the setting of CHF Echo Resume home medications as able DVT PPX - SCDS - Chemical PPX contraindicated with hematuria GI PPX
--- NOTE | 2019-02-01 15:15 | PDOC.CTH ---
Cardiology Progress Note - Subjective No new issues. - Objective Vital Signs Temp Pulse Ox 02/01/19 12:00 98.7 F 02/01/19 08:00 98.4 F 02/01/19 07:55 97 02/01/19 04:00 99.1 F Weight 221 lb 12.56 oz 01/31/19 02/01/19 02/02/19 06:59 06:59 06:59 Intake Total 3445.8 380 Output Total 0 Balance 3445.8 380 - Physical Examination General/Neuro: NAD Neck: no JVD present Lungs: CTA, unlabored respirations Heart: other: (Irre girreg) Abdomen: NT/ND Extremities: + edema B (1+) - Telemetry Telemetry Rhythm: Afib HR 70's. - Labs Result Diagrams: 02/01/19 04:56 02/01/19 04:56 Troponin/CKMB CK-MB (CK-2) 0.8 ng/mL (0-6.6) 01/31/19 02:45 Troponin I 0.036 ng/mL (< 0.028) H 01/31/19 09:43 - Assessment/Plan 1. Septic shock 2. Chronic afib, rate controlled. 3. Chronic anticoagulation with Eliquis on hold for now. 4. hematuria 5. Obstructive right ureteral calculus. PLAn: - Continue to hold Eliquis until bleeding has stopped and safe to restart from urologic perspective. - Abx per primary team.
[2019-02-01] MEDS ORDERED: IMBRUVICA 140 MG PO SCH (17:45)
--- NOTE | 2019-02-01 17:46 | CON ---
DATE OF CONSULTATION: 02/01/2019 CONSULTING PHYSICIAN: Dr. Tejada. REASON FOR CONSULTATION: Acute kidney injury. REASON FOR ADMISSION: Nausea, vomiting, and diarrhea. HISTORY OF PRESENT ILLNESS: This is an 88-year-old male with history of CLL, hypertension, kidney stones, congestive heart failure, AICD, anemia, prostate cancer, hyperlipidemia, diabetes, CHF, came to the hospital with nausea, vomiting, diarrhea and is initially treated for dehydration. His creatinine on admission was 2.19 from a baseline of around 1.4 to 1.6. The patient was seen in ICU today. 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 The patient is making dark urine. Denies any abdominal pain. No nausea or vomiting. No chest pain or palpitation reported. PAST MEDICAL HISTORY: Positive for CLL, hypertension, nephrolithiasis, congestive heart failure, microcytic anemia, horseshoe kidney, prostate cancer, type 2 diabetes, hyperlipidemia, and Parkinson's, and chronic UTIs. PAST SURGICAL HISTORY: Eye surgery, cholecystectomy, heart surgery, tonsillectomy, and AICD. HOME MEDICATIONS: Include: 1. Flomax. 2. Pepcid. 3. Casodex. 4. Eliquis. 5. Senokot. 6. K-Dur. 7. MiraLAX. 8. Protonix. 9. Proscar. 10. Vitamin D3. 11. Carbidopa/levodopa. 12. Tylenol. SOCIAL HISTORY: No smoking, alcohol, or illicit drugs. FAMILY HISTORY: No history of kidney disease. REVIEW OF SYSTEMS: CONSTITUTIONAL: Negative for weight loss or gain, ability to conduct usual activities. SKIN: Negative for rash, itching. EYES: Negative for double vision, pain. ENT/MOUTH: Negative for nose bleeding, neck stiffness, pain, tenderness. CARDIOVASCULAR: Negative for palpitations, dyspnea on exertion, orthopnea. RESPIRATORY: Negative for shortness of breath, wheezing, cough, hemoptysis, fever or night sweats. GASTROINTESTINAL: Negative for poor appetite, abdominal pain, heartburn, nausea, vomiting, constipation, or diarrhea. GENITOURINARY: Negative for urgency, frequency, dysuria, nocturia. MUSCULOSKELETAL: Negative for pain, swelling. NEUROLOGIC/PSYCHIATRIC: Negative for anxiety, depression. ALLERGY/IMMUNOLOGIC: Negative for skin rash, bleeding tendency. PHYSICAL EXAMINATION: GENERAL: This is a well-built male, in no apparent distress. VITAL SIGNS: Temperature 98.7, pulse 75, respiratory rate 20, blood pressure 102/53. HEENT: Atraumatic and normocephalic. Oral mucosa moist. NECK: Supple. CV: S1 and S2 heard. Regular rate and rhythm. RESPIRATORY: Clear to auscultation. GASTROINTESTINAL: Abdomen is soft. MUSCULOSKELETAL: 1+ edema. DERMATOLOGIC: No rash NEUROLOGIC: Alert and awake. PSYCHIATRIC: Mood and affect normal. LABORATORY DATA: Potassium is 4.8, BUN is 45, creatinine is 3.9, and bicarb is 50. ASSESSMENT AND PLAN: 1. Acute kidney injury, multifactorial given the obstructive uropathy and possible volume depletion. Agree with hydration. Given the severe acidosis, we will change fluids to bicarb drip. 2. Hyperchloremia. 3. Metabolic acidosis, per BMP. Plan is to start on bicarb drip. 4. Elevated BUN. 5. Anemia, rule out any bleed. Recheck hemoglobin. There is significant drop from yesterday. 6. Edema, controlled. 7. History of hypertension. 8. Pyuria. Follow up cultures. Plan is to hydrate avoid nephrotoxins. Renally dose the medications. Continue antibiotics. Continue bicarb drip. Monitor vancomycin level. We will closely follow. Thank you for the consult. Follow up with Urology. Job ID: [id number]
[2019-02-01] MEDS ORDERED: Prevnar 13-Val Conj/PF 0.5 ML SYRINGE IM ONE (18:30)
[2019-02-02] MEDS: Hyoscyamine Sulfate SL 0.125 mg Tablet SL SCH ×5 (00:07→23:32)
[2019-02-02] MEDS: MEROPENEM 1 GM/50 ML 1 GM in Premix Bag 1 BAG IVPB SCH ×3 (00:07→23:33)
[2019-02-02] MEDS ORDERED: Furosemide 40 MG/4 ML VIAL SLOW IVP SCH ×2 (02:00→16:15)
[2019-02-02] MEDS ORDERED: Sodium Chloride 0.9% 1,000 ML IV SCH (02:00)
[2019-02-02] MEDS: Morphine 4 MG/ML VIAL SLOW IVP PRN ×6 (03:06→23:31)
[2019-02-02] MEDS: Vancomycin HCl 1 GM in Premix Bag 1 BAG IVPB SCH (05:00)
[2019-02-02 05:25] LABS: #Basophils 0.2 thou/uL (0.0-0.2); #Lymphocytes 3.7 thou/uL (1.20-3.40); #Neutrophils 10.6 thou/uL (1.40-6.50); %Basophils 1.3 % (0.0-1.0); %Eosinophils 0.2 % (0.0-10.0); %Lymphocytes 23.8 % (21.0-51.0); %Monocytes 6.1 % (0.0-10.0); %Neutrophils 68.5 % (42.0-75.0); Hemoglobin 6.7 g/dL (14.0-18.0); Mean Corpuscular HGB CONC 32.5 g/dL (32.0-36.0); Mean Corpuscular Hemoglobin 32.5 pg (27.0-31.0); Mean Corpuscular Volume 99.8 fL (78.0-98.0); Mean Platelet Volume 7.8 fL (7.4-10.4); Platelet Count 227 thou/uL (130-400); RBC Distribution Width 12.8 % (11.5-14.5); Red Blood Cell (RBC) Count 2.08 mill/uL (4.70-6.10); White Blood Cell (WBC) Count 15.5 thou/uL (4.8-10.8)
[2019-02-02 05:43] LABS: Vancomycin, Trough 23.9 ug/mL
[2019-02-02 05:47] LABS: Anion Gap 13 mmol/L (10-20); BUN (Urea Nitrogen) 59 mg/dL (8.4-25.7); Calc. Creatinine Clearance 14 mL/min (70-130); Carbon Dioxide 20 mmol/L (23-31); Chloride 108 mmol/L (98-107); Estimated GFR-MDRD 10; Glucose 106 mg/dL (83-110); Potassium 4.2 mmol/L (3.5-5.1); Sodium 137 mmol/L (136-145)
[2019-02-02] MEDS: Tamsulosin HCl 0.4 MG CAP PO SCH ×2 (07:57→20:34)
[2019-02-02] MEDS: Famotidine 20 MG TAB PO SCH (07:57)
[2019-02-02] MEDS: Donepezil HCl 5 MG TAB PO SCH (07:57)
[2019-02-02] MEDS: Linezolid 600 MG in Premix Bag 1 BAG IVPB SCH ×2 (08:29→21:12)
--- NOTE | 2019-02-02 08:29 | PRG ---
DATE OF SERVICE: 02/02/2019 SUBJECTIVE: The patient is still complaining of abdominal pain, otherwise seems to be doing reasonably well given the circumstances. OBJECTIVE: VITAL SIGNS: His temperature is 98.3, pulse 93, blood pressure 103/62, O2 saturation 95%. Total intake for last 24 hours 680, output 1350. HEENT: Unremarkable. NECK: No adenopathy, JVD, or bruits. LUNGS: Clear. CARDIAC: S1 and S2. Somewhat irregular. ABDOMEN: Soft, slightly tender to palpation. EXTREMITIES: No clubbing, cyanosis, or edema. LABORATORY DATA: White blood cell count 15.5, hemoglobin 6.7, hematocrit 20.7, and platelet count 227. Sodium 137, potassium 4.2, chloride 108, CO2 of 20, BUN 59, creatinine 5.5, and glucose 106. ASSESSMENT: 1. Septic shock secondary to obstructing calculi. 2. Status post ureteral stent placement. 3. Anemia. 4. Worsening renal function. PLAN: 1. I think he probably would benefit from transfusion of blood products. Hopefully, this would also help his renal perfusion and his kidney function. 2. Continue antibiotics adjusted to altered kidney function. 3. Probably continue ICU care until bladder flushes no longer needed. Job ID: [id number]
[2019-02-02] MEDS ORDERED: IMBRUVICA 140 MG PO SCH (09:00)
--- NOTE | 2019-02-02 11:43 | PDOC.HOSPP ---
- Subjective Subjective: Seen and examined in ICU. Clinically not improving. Continues with hematuria requiring flushing. Worsening abdominal pain and distention, will add CT abd/ pelvis. Worsening renal function. Patient answering simple questions appropriately, currently at his baseline. - Objective Vital Signs & Weight: Vital Signs (12 hours) Temp Pulse Resp Pulse Ox 02/02/19 11:16 98.0 F 68 23 H 93 L 02/02/19 11:00 98.0 F 02/02/19 08:25 97.8 F 94 29 H 95 02/02/19 08:10 98.1 F 99 25 H 95 02/02/19 08:00 98.1 F 02/02/19 04:00 98.3 F 02/02/19 00:00 98.4 F Weight Admit Weight 221 lb 12.56 oz Weight 235 lb 0.204 oz Most Recent Monitor Data Heart Rate from ECG 99 NIBP 103/55 NIBP BP-Mean 71 Respiration from ECG 19 SpO2 91 I&O: 02/01/19 02/02/19 02/03/19 06:59 06:59 06:59 Intake Total 3445.8 680 350 Output Total 0 1350 Balance 3445.8 -670 350 Result Diagrams: 02/02/19 05:18 02/02/19 05:18 ROS - Medication Medications: Active Medications Generic Name Dose Route Start Last Admin Trade Name Freq PRN Reason Stop Dose Admin Acetaminophen 650 mg 01/31/19 04:25 02/01/19 15:13 Tylenol PO 650 mg Q4H PRN Administration Headache/Fever/Mild Pain (1-3) Donepezil HCl 5 mg 02/01/19 09:00 02/02/19 07:57 Aricept PO 5 mg DAILY BERNARDINO Administration Famotidine 20 mg 02/01/19 09:00 02/02/19 07:57 Pepcid PO 20 mg DAILY BERNARDINO Administration Hyoscyamine Sulfate 0.25 mg 01/31/19 18:00 02/02/19 11:19 Levsin Sl SL 0.25 mg Q6HR BERNARDINO Administration Norepinephrine Bitartrate 8 mg 250 mls @ 0 mls/hr 01/31/19 06:15 01/31/19 16: 55 / Dextrose/Water IVPB 250 mls INF PRN Administration TO MAINTAIN MAP > 65 Protocol As Directed Meropenem 1 gm/ Device 50 mls @ 100 mls/hr 02/01/19 00:00 02/02/19 11:26 IVPB 50 mls 0000,1200 BERNARDINO Administration Linezolid 600 mg/ Device 300 mls @ 150 mls/hr 02/02/19 09:00 02/02/19 08:29 IVPB 300 mls Q12HR BERNARDINO Administration Morphine Sulfate 2 mg 02/01/19 18:27 02/02/19 11:26 Morphine SLOW IVP 2 mg Q2H PRN Administration Pain Sertraline HCl 50 mg 02/01/19 09:00 02/02/19 07:57 Zoloft PO 50 mg DAILY BERNARDINO Administration Tamsulosin HCl 0.4 mg 01/31/19 21:00 02/02/19 07:57 Flomax PO 0.4 mg BID BERNARDINO Administration - Exam ill appearing Eye: PERRL, anicteric sclera ENT: normocephalic atraumatic, moist mucosa Neck: supple, symmetric, no JVD Heart - other findings: S1 and S2 present. Faint heart sounds secondary to body habitus Respiratory: CTAB, no wheezes, no rales, no ronchi Respiratory - other findings: Breathing well on room air Gastrointestinal: normal bowel sounds, no hepatomegaly, no splenomegaly, tender to palpation, distended Gastrointestinal - other findings: Worsening distention and pain to palpation from yesterday. Extremities: 1+ LE edema Skin: normal turgor Neurological: CN's grossly intact, no focal deficits, no new deficit Musculoskeletal: generalized weakness, diffuse muscle atrophy Psychiatric: oriented to person, oriented to place. negative: oriented to time Hosp A/P (1) CHF (congestive heart failure), NYHA class III Code(s): I50.9 - HEART FAILURE, UNSPECIFIED Status: Chronic (2) Acute on chronic renal failure Code(s): N17.9 - ACUTE KIDNEY FAILURE, UNSPECIFIED; N18.9 - CHRONIC KIDNEY DISEASE, UNSPECIFIED Status: Acute Qualifiers: Acute renal failure type: with other specified pathological lesion Chronic kidney disease stage: stage 3 (moderate) Qualified Code(s): N17.8 - Other acute kidney failure; N18.3 - Chronic kidney disease, stage 3 (moderate) (3) CLL (chronic lymphocytic leukemia) Code(s): C91.90 - LYMPHOID LEUKEMIA, UNSPECIFIED NOT HAVING ACHIEVED REMISSION Status: Chronic (4) Physical deconditioning Code(s): R53.81 - OTHER MALAISE Status: Chronic (5) UTI (urinary tract infection) Status: Acute Qualifiers: Urinary tract infection type: acute cystitis Hematuria presence: without hematuria Qualified Code(s): N30.00 - Acute cystitis without hematuria (6) Coronary artery disease Code(s): I25.10 - ATHSCL HEART DISEASE OF [place] CORONARY ARTERY W/O ANG PCTRS Status: Chronic Qualifiers: Coronary Disease-Associated Artery/Lesion type: [place] artery [place] vs. transplanted heart: [place] heart Associated angina: without angina Qualified Code(s): I25.10 - Atherosclerotic heart disease of [place] coronary artery without angina pectoris (7) DM type 2 (diabetes mellitus, type 2) Status: Chronic Qualifiers: Diabetes mellitus termite helper insulin use: without termite helper use Diabetes mellitus complication status: with unspecified complications (8) Dyslipidemia Code(s): E78.5 - HYPERLIPIDEMIA, UNSPECIFIED Status: Chronic (9) H/O prostate cancer Code(s): Z85.46 - PERSONAL HISTORY OF MALIGNANT NEOPLASM OF PROSTATE Status: Chronic (10) HTN (hypertension) Code(s): I10 - ESSENTIAL (PRIMARY) HYPERTENSION Status: Chronic Qualifiers: Hypertension type: essential hypertension Qualified Code(s): I10 - Essential (primary) hypertension (11) Macrocytic anemia Code(s): D53.9 - NUTRITIONAL ANEMIA, UNSPECIFIED Status: Acute (12) Nephrolithiasis Status: Acute (13) Obesity (BMI 30-39.9) Code(s): E66.9 - OBESITY, UNSPECIFIED Status: Chronic (14) Parkinson disease Code(s): G20 - PARKINSON'S DISEASE Status: Chronic (15) Abdominal pain Code(s): R10.9 - UNSPECIFIED ABDOMINAL PAIN Status: Acute Qualifiers: (16) Metabolic encephalopathy Code(s): G93.41 - METABOLIC ENCEPHALOPATHY Status: Resolved (17) Septic shock Code(s): A41.9 - SEPSIS, UNSPECIFIED ORGANISM; R65.21 - SEVERE SEPSIS WITH SEPTIC SHOCK Status: Resolved - Plan Plan: ICU Pulmonology/CC consultation, recommendations appreciated Urology consultation, recommendations appreciated Nephrology consultation, recommendations appreciated Cardiology consultation, recommendations appreciated ID consultation, recommendations appreciated CT abd/ pelvis - worsening pain and distention Continues to have hematuria requiring flushing Worsening UZMA, expected with shock on vasopressors, nephrolithiasis w/ hydro. If renal function continues to worsen may require HD Vanco trough high, will D/c vanco secondary to nephrotoxicity and add Zyvox Broad spectrum ABX, de escilate to culture and sensitivity as able Weaned off vasoactive medications as needed to maintain MAP >65 IV fluid resuscitation in the setting of reduced EF CHF S/p cystoscopy on 01/31/19 - see full op report for details Caution with volume overload, patient with UZMA in the setting of CHF Echo Resume home medications as able DVT PPX - SCDS - Chemical PPX contraindicated with hematuria GI PPX Long and short term prognosis for meaningful recovery is guarded
--- NOTE | 2019-02-02 12:01 | PRG ---
DATE OF SERVICE: 02/02/2019 SUBJECTIVE: The patient is oriented x2. OBJECTIVE: VITAL SIGNS: 98, respiration 23, 93%, and 103/55, off Levophed. CBI is going at a slow rate, megan peach. GENERAL: The patient has ecchymosis diffusely. ABDOMEN: Grossly distended more than previous, tender. No CVA tenderness. EXTREMITIES: Lower extremities consistent with evolving anasarca. : Benavides catheter adequately secured. I did gently flush the catheter with tiny clot, minimal, subsequently clear. Urine output 1350. LABORATORY DATA: White count has decreased from 28 to 15. Decrease hemoglobin at 6.7, he is receiving 2 units. Platelet 227. Worsening renal insufficiency, BUN 59, creatinine 5.5. Blood culture and urine culture, negative. Has been on meropenem, vancomycin. IMPRESSION AND PLAN: 1. Mr. Rowland is an 88-year-old male with horseshoe kidney. 2. Extensive bilateral renal moiety calculi. 3. High-grade right ureteral calculi with obstruction causing severe hydronephrosis of right renal moiety, presented with ruptured right collecting system. Postop day #2 cysto, right retrograde, 6 x 22 stent, 3-way Benavides catheter placed. 4. History of atrial fibrillation, congestive heart failure; on Eliquis, recently discontinued due to hematuria, recent surgery. con to hold due to anemia 5. History of prostate cancer, previously on Casodex, currently on hold per Med Onc. 6. Atrial fibrillation. patient remains high risk, hospitalist has obtained a CT scan this morning, which I agree due to his abdominal distention and worsening renal failure, Nephrology on board, hemodialysis as indicated per Nephrology service. Mr. Rowland remains critically ill. Continue medical optimization. will review CT when available. 7. [facility] Job ID: [id number] MTDD
--- NOTE | 2019-02-02 14:18 | CT ---
CT ABDOMEN AND PELVIS WITHOUT IV CONTRAST: HISTORY: Abdominal pain. The patient complains of increasing abdominal distention and pain. Recent ureteral stent placement secondary to obstructing ureteral calculi. COMPARISON: 01/31/2019. FINDINGS: Partial visualization of cardiac AICD leads is again seen. Cardiac silhouette is mildly enlarged. There are small bilateral pleural effusions and associated consolidation at each lung base which has developed in the interim which is probably related to passive atelectasis. The hypodense mass with c entral calcification is again seen and has been seen on prior studies dating back to 2015. This may represent a hamartoma. However, this is stable. Post cholecystectomy changes are noted. There has been interval placement of a right ureteral stent when compared to the prior exam with the proximal portion overlying the right aspect of the horseshoe-shaped kidney and distal portion just wi thin the urinary bladder. Multiple renal calculi are seen in the horseshoe-shaped kidney bilaterally with multiple calculi again seen along the course of the mid right ureter also noted on the prior ex am. There is increased density material within the right renal collecting system probably related to hemorrhage. There is also increased density material involving the horseshoe-shaped kidney with ove rall heterogeneous appearance of a kidney, and the kidney does appear larger in size. Findings are w orrisome for subcapsular hematoma. Increased density fluid is seen in the retroperitoneum on the rig ht also suggesting a hemorrhage. Calcified granuloma is seen in the liver. The spleen, pancreas, and bilateral adrenal glands demonstrate a normal CT appearance. Right renal hypodensities are seen likely related to renal cysts which were also seen on the study in 2015. Vascular calcifications are seen in the abdominal aorta and involving the iliac arteries. There is free fluid seen in the abdomen and each paracolic gutter with inflammatory stranding seen in a presacral location and a tiny amount of fluid was also seen on prior exam. Benavides catheter is present in the urinary bladder. There is colonic diverticulosis present. Mild gaseous distention of the colon and loops of small bow el are seen without small bowel dilatation. IMPRESSION: 1. Horseshoe-shaped kidney with evidence of nephrolithiasis including multiple calculi seen bilatera lly. 2. Heterogeneity of the horseshoe-shaped kidney on noncontrast exam with findings worrisome for subc apsular hemorrhage. The horseshoe-shaped kidney is larger in size compared to the prior exam on 2018. In addition, there is increased density material in a retroperitoneal location on the right wh ich is probably related to hemorrhage as well. Findings are similar to recent exam. 3. Interval placement of a right ureteral stent with improvement in hydronephrosis and hydroureter. 4. Increase in bilateral pleural effusions and consolidation at each lung base probably related to a telectasis. 5. Mild cardiomegaly. 6. Distention of the stomach and loops of colon as well as a few loops of small bowel. There are no findings to suggest a bowel obstruction. Findings may be related to developing ileus. 7. Above findings concerning the kidney and suggested subcapsular hematoma and retroperitoneal hemor rhage overall stable compared to the prior study were discussed with Dr. Tejada on 02/02/2019 at 1236 hours. CODE CR POS: [id number]
--- NOTE | 2019-02-02 15:50 | PDOC.CTH ---
Cardiology Progress Note - Subjective He is starting to accumulate fluid. Had to have a dose of lasix last night and it is difficult to tell his ins and outs due to his bladder being irrigated continuosly. His creatinine from yesterday. - Objective Vital Signs Temp Pulse Resp Pulse Ox 02/02/19 12:50 97.9 F 98 19 98 02/02/19 12:35 98.1 F 96 18 97 02/02/19 11:16 98.0 F 68 23 H 93 L 02/02/19 11:00 98.0 F 02/02/19 08:25 97.8 F 94 29 H 95 02/02/19 08:10 98.1 F 99 25 H 95 02/02/19 08:00 98.1 F 02/02/19 04:00 98.3 F Admit Weight 221 lb 12.56 oz Weight 235 lb 0.204 oz 02/01/19 02/02/19 02/03/19 06:59 06:59 06:59 Intake Total 3445.8 680 700 Output Total 0 1350 350 Balance 3445.8 -670 350 - Physical Examination General/Neuro: NAD Neck: no JVD present Lungs: other: (Crackles at bases. ) Heart: other: (Irreg irreg) Abdomen: NT/ND Extremities: + edema B (3+) - Telemetry Telemetry Rhythm: Afib HR 80-100 - Labs Result Diagrams: 02/02/19 05:18 02/02/19 05:18 Troponin/CKMB CK-MB (CK-2) 0.8 ng/mL (0-6.6) 01/31/19 02:45 Troponin I 0.036 ng/mL (< 0.028) H 01/31/19 09:43 - Assessment/Plan 1. Septic shock 2. Chronic afib, rate controlled. 3. Chronic anticoagulation with Eliquis on hold for now. 4. Hematuria 5. Obstructive right ureteral calculus. 6. Anemia 7. Dilated Cardiomyopathy EF 25-30% PLAN: - Continue to hold Eliquis until bleeding has stopped and safe to restart from urologic perspective. Currently his Hgb continues to drop and needs transfusion. - Repeat CT abdomen showed subcapsular hematoma and retroperitoneal hemorrhage around kidney which would explain both drop in Hgb and increased creatinine. - IV lasix to try to increase diuresis as he has anasarca now but his kidneys are worsening, most likely will need dialysis to get fluid out and maybe mcc. - Will repeat echocardiogram - Will interrogate PPM. - Try to keep Hgb above 8 if possible. - Severely ill and would not be unexpected. - Family was updated. - 40 minutes critical care time.
--- NOTE | 2019-02-02 16:15 | PRG ---
DATE OF SERVICE: 02/02/2019 SUBJECTIVE: Patient was seen and examined at bedside and overnight events noted. Patient denies any shortness of breath or chest pain or palpitation. No history of nausea or vomiting or diarrhea or fever or chills or cramps. OBJECTIVE: GENERAL: This is a well-built male, in no acute distress. VITAL SIGNS: Temperature 97.9. Heart rate 90. Respiratory rate 18. Blood pressure 108/68. HEENT: Atraumatic, normocephalic. Oral mucosa is moist NECK: Supple. CARDIOVASCULAR: S1, S2 heard. Rate and rhythm regular. RESPIRATORY: Clear to auscultation. GASTROINTESTINAL: Abdomen is soft. MUSCULOSKELETAL: No tenderness. No edema. DERMATOLOGIC: No skin rash. NEUROLOGIC: Alert and awake and oriented X3. No focal neurologic deficits. Moving all the extremities. PSYCHIATRIC: Mood and affect normal. LABORATORY DATA: Potassium 4.2, BUN is 59, and creatinine is 5.5. ASSESSMENT AND PLAN: 1. Acute kidney injury, getting worse. No acute indication for dialysis. We will continue to follow. Unable to have much IV fluids given his cardiac status. 2. Metabolic acidosis. 3. Elevated BUN. 4. Hypochloremia. 5. Edema. 6. History of hypertension. 7. Pyuria. 8. Acidosis, better. We will monitor. No acute indication for dialysis. Avoid nephrotoxins. Medications reviewed. Vancomycin changed to Zyvox. Add one dose of Lasix. Labs are stable. Continue to monitor. Job ID: [id number]
[2019-02-02] MEDS ORDERED: Vancomycin HCl 750 MG in Sodium Chloride 0.9% 250 ML 250 ML IVPB SCH (18:00)
--- NOTE | 2019-02-02 23:56 | CON ---
DATE OF CONSULTATION: 02/02/2019 REASON FOR CONSULTATION: Obstructive uropathy with sepsis. HISTORY OF PRESENT ILLNESS: An 88-year-old, whom I had seen in June when he presented with a history of Parkinson disease or actually essential tremors, ischemic cardiomyopathy with a pacemaker, prostate cancer in remission as well as type 2 diabetes mellitus with hypotension and diarrhea. He also has a history of nephrolithiasis with prior extensive treatment with washouts, antimicrobials, but always negative cultures. One prior urine culture from December 29, 2014 with Klebsiella. All more recent urine samples have been consistently negative. He had been receiving chemotherapy under Dr. Mccann's supervision for his CLL. This time, he was brought in with nausea, vomiting, and diarrhea associated with fever. He was given IV fluids in the emergency room and then started on vasopressors. On arrival, his BP was 180/130 initially and then it dropped, which led to the initiation of vasopressors. His O2 saturations were 96%, temperature 101.6. He was oriented and initial white cell count 28,000, hemoglobin 11.9, creatinine 2.19, glucose 282. The patient had an abdomen and pelvis CT, which demonstrated high-grade obstruction of mid to distal right ureter due to multiple stacked calcifications and possible rupture in the right renal collecting system. Dr. Tejada was consulted and she placed a stent over the obstruction. A followup abdomen and pelvis CT showed a stent. Multiple renal calculi seen along the course of the mid right ureter and increased density material within the right renal collecting system, possibly related to hemorrhage. Possibility of subcapsular hematoma was considered and also possibility of hemorrhage in the retroperitoneal area. Currently, Mr. Rowland is delirious. He is disoriented. Denies headaches. No respiratory symptoms. He has diffuse abdominal pain, particularly in the right side. PAST MEDICAL HISTORY: Includes type 2 diabetes, CLL, on Imbruvica, recurrent severe nephrolithiasis, requiring interventions in the past, episodes of urosepsis, hypertension, CHF with AICD, type 2 diabetes, essential tremor. SURGICAL HISTORY: Gallbladder stent removal, cholecystectomy. SOCIAL HISTORY: The patient lives in [place] with son. Retired. Never smoker. CURRENT MEDICATIONS: 1. Tylenol. 2. Aricept. 3. Pepcid. 4. Lasix. 5. Levsin. 6. Linezolid. 7. Meropenem. 8. Norepinephrine. PHYSICAL EXAMINATION: VITAL SIGNS: T-max 99.1, blood pressure 130/70, pulse 102, respirations 21, O2 saturation 99. SKIN: The patient has an indwelling Benavides. I's and O's were positive yesterday and now they are negative -600. HEENT: Ocular movements conjugate. Sclerae white. Oral cavity moist. NECK: Supple. No jugular vein distention. LUNGS: Symmetric air entry with diminished breath sounds at the bases. HEART: S1 and S2, diminished heart sounds. Regular rate. ABDOMEN: With tenderness particularly on the right side. Moderate distention. No ascites. No bladder distention. MUSCULOSKELETAL: No joint inflammatory activity. EXTREMITIES: He is able to move extremities on command. Plantar responses are flexor. No clonus. 1+ edema. NEUROLOGIC: He is awake, but has a hard time following commands. Cannot answer questions properly. LABORATORY DATA: [place] [address] to [address], hemoglobin is down to 6.7, MCV 99, platelets 227 with a normal differential. Creatinine is up from 2.19 to 5.54. AST 19, ALT 13, alkaline phosphatase 122, albumin 3.5, globulin 2.9, lipase 129. Urinalysis, 21 to 50 wbc's. Vancomycin trough was 23. Microbiology, thus far no growth in blood and urine cultures. ASSESSMENT: 1. Severe nephrolithiasis, recurrent episodes of urosepsis in the past, chronic lymphocytic leukemia, on Imbruvica. 2. Sepsis, presumably from urinary tract origin associated with the obstruction, status post stenting with negative cultures thus far. DISCUSSION: The patient has now developed a complication of the process and intervention, which is hemorrhage, his renal function is deteriorating probably from the sepsis and the obstruction. The negative cultures may be related to the obstruction and the fact that samples were obtained after the antimicrobials had been already initiated. From a practical standpoint, we will have to continue with this broad-spectrum coverage already given. Follow up the clinical course. Job ID: [id number]
[2019-02-03] MEDS: Morphine 4 MG/ML VIAL SLOW IVP PRN ×7 (02:19→23:00)
[2019-02-03 03:56] LABS: #Basophils 0.1 thou/uL (0.0-0.2); #Eosinphils 0.1 thou/uL (0.0-0.7); #Lymphocytes 3.8 thou/uL (1.20-3.40); #Monocytes 0.9 thou/uL (0.11-0.59); #Neutrophils 11.2 thou/uL (1.40-6.50); %Basophils 0.7 % (0.0-1.0); %Eosinophils 0.6 % (0.0-10.0); %Lymphocytes 23.7 % (21.0-51.0); %Monocytes 5.6 % (0.0-10.0); %Neutrophils 69.4 % (42.0-75.0); Hemoglobin 9.4 g/dL (14.0-18.0); Mean Corpuscular HGB CONC 33.2 g/dL (32.0-36.0); Mean Corpuscular Hemoglobin 32.5 pg (27.0-31.0); Platelet Count 212 thou/uL (130-400); Red Blood Cell (RBC) Count 2.88 mill/uL (4.70-6.10); White Blood Cell (WBC) Count 16.2 thou/uL (4.8-10.8)
[2019-02-03 04:18] LABS: Anion Gap 16 mmol/L (10-20); BUN (Urea Nitrogen) 68 mg/dL (8.4-25.7); Calc. Creatinine Clearance 13 mL/min (70-130); Carbon Dioxide 19 mmol/L (23-31); Chloride 107 mmol/L (98-107); Estimated GFR-MDRD 9; Glucose 108 mg/dL (83-110); Potassium 3.9 mmol/L (3.5-5.1); Sodium 138 mmol/L (136-145)
[2019-02-03] MEDS: Furosemide 40 MG/4 ML VIAL SLOW IVP SCH ×2 (05:41→15:33)
[2019-02-03] MEDS: Hyoscyamine Sulfate SL 0.125 mg Tablet SL SCH ×3 (05:42→17:46)
--- NOTE | 2019-02-03 08:21 | PRG ---
DATE OF SERVICE: 02/03/2019 SUBJECTIVE: The patient is arousable, coherent. OBJECTIVE: VITAL SIGNS: Stable at temperature 97.9, blood pressure 125/66 off pressors, and oxygen saturation 94%. I's and O's, 1740 in and 2049 out. His CBI is going at a slow rate, megan to clear. NG output 650. GENERAL: The patient is arousable, oriented x2. At rest, appears comfortable. LUNGS: Decreased inspiratory effort. ABDOMEN: Grossly distended, diffuse tenderness. GENITOURINARY: Three-way Benavides catheter in place. CBI going at a low rate. LABORATORY DATA: White count 16, hemoglobin after 2 units has increased from 6.7 to 9.4, and platelet 212. BUN increased to 68, creatinine 6.25, and potassium 3.9. All cultures so far negative. IMPRESSION AND PLAN: 1. Mr. Rowland is an 88-year-old male with history of horseshoe kidney. 2. Extensive bilateral renal stone moiety. 3. High-grade right ureteral obstruction due to calculi, longstanding, presented with ruptured right collecting system, subcapsular hematoma in retrospect as I reviewed CT with Dr. Reyna yesterday. He is postop day #3, status post cysto, right retrograde, 6 x 22 double-J ureteral stent, three-way Ebnavides catheter. 4. Hematuria, on continuous bladder irrigation degree of hematuria improving 5. Anemia, status post 2 units with appropriate increase in H and H. 6. History of prostate cancer, in remission, Casodex discontinued by Med/Onc. 7. History of atrial fibrillation and congestive heart failure. Anticoagulation on hold due to anemia, subcapsular hematoma of the right kidney and hematuria component. 8. History of CLL. RECOMMENDATION: His prognosis remains guarded and poor, patient will most likely require dialysis at this point. Nephrology is following. He remains in critical condition. Continue medical optimization. Job ID: [id number] [facility]
[2019-02-03] MEDS: Linezolid 600 MG in Premix Bag 1 BAG IVPB SCH ×2 (08:25→20:19)
--- NOTE | 2019-02-03 08:34 | PRG ---
DATE OF SERVICE: 02/03/2019 SUBJECTIVE: Mr. Rowland remains in the CCU. He is having severe problems with renal dysfunction and dialysis is now being considered. OBJECTIVE: VITAL SIGNS: His temperature is 97.9, pulse 94, and blood pressure 125/66. He is currently on no vasopressors. HEENT: Unremarkable. NECK: No adenopathy or JVD. CHEST: Clear anteriorly. CARDIAC: S1 and S2, regular. ABDOMEN: Diffusely tender to palpation. EXTREMITIES: Edematous. LABORATORY DATA: Sodium 138, potassium 3.9, chloride 107, CO2 of 19, BUN , creatinine 6.2, and glucose 108. White blood cell count 16.2, hemoglobin 9.4, hematocrit 28.2, and platelet count 212. ASSESSMENT: 1. Nephrolithiasis. 2. Status post septic shock. 3. Intraparenchymal bleed into horseshoe kidney. 4. Acute on chronic renal failure. PLAN: 1. I agree with Dr. Tejada that dialysis will be needed. 2. Keep in ICU for the time being as his status is very tenuous. 3. Continue to monitor labs. 4. Continue IV antibiotics. Job ID: [id number]
[2019-02-03] MEDS: Famotidine 20 MG TAB PO SCH (11:46)
[2019-02-03] MEDS: Tamsulosin HCl 0.4 MG CAP PO SCH ×2 (11:46→20:20)
[2019-02-03] MEDS: Donepezil HCl 5 MG TAB PO SCH (11:47)
[2019-02-03] MEDS: Meropenem 500 MG in Sodium Chloride 0.9% 100 ML IVPB SCH ×2 (12:43→23:44)
[2019-02-03 12:49] LABS: HBSAg Index 0.41 S/CO (0-0.99); Hep B Surf Ag Non-Reactive S/CO (NonReactive)
--- NOTE | 2019-02-03 13:31 | PRG ---
DATE OF SERVICE: 02/03/2019 SUBJECTIVE: An 88-year-old gentleman being seen for acute kidney injury. The patient is very somnolent. OBJECTIVE: See above. Awake, alert, in no acute distress. The patient is resting. VITAL SIGNS: Afebrile, pulse 124, breathing 16, blood pressure 109/54. GENERAL APPEARANCE AND MENTAL STATUS: Fair. HEAD/NECK: Normocephalic. Atraumatic. EYES: EOMI. No deformity. EARS: Clear. No ulcers. NOSE: Intact. No lesions. MOUTH: Clear. No discharge. THROAT: Clear. No exudate. LUNGS: Clear. No crackles. CARDIAC: S1, S2. No rub. ABDOMEN: Benign. Bowel sounds positive. GENITALIA/RECTUM: Benavides absent. BACK/EXTREMITIES: The patient has 4+ edema. NEUROLOGICAL: Alert and motor intact. The patient is resting. SKIN: LYMPHATICS: LABORATORY DATA: Showed hemoglobin 9.4. Creatinine is 6.25. ASSESSMENT AND PLAN: 1. Chronic kidney disease stage 5 with massive volume overload and possible uremia. Risks, versus, and benefits of dialysis were discussed with the patient and his son, and I spent more than 40 minutes about the importance and the risks versus benefits of dialysis. The patient's spouse wants the patient to be comfortable, do not resuscitate, but the son who is the medical [id number] wants full care at this time. I will advise them to discuss this and let me know, and if indicated, we will plan dialysis. 2. Anemia, stable. 3. Medication based on GFR appropriate. Job ID: [id number]
[2019-02-03] MEDS ORDERED: Lidocaine 1% (PF) 30 ML VIAL ONE (14:10)
[2019-02-03] MEDS ORDERED: Heparin 10,000 UNITS/1 ML VIAL ONE (15:00)
--- NOTE | 2019-02-03 16:13 | PDOC.HOSPP ---
- Subjective Subjective: Patient seen and examined in ICU. Remains critically ill. No clinical improvement. Will require HD, I discussed the case with nephrology. I discussed the case at [facility] with the patient, patients son (BROOK), and his . Many questions were asked, all answered in detail. - Objective Vital Signs & Weight: Vital Signs (12 hours) Temp 02/03/19 11:00 97.0 F L 02/03/19 08:00 98.0 F 02/03/19 05:36 97.9 F Weight Admit Weight 221 lb 12.56 oz Weight 236 lb 1.841 oz Most Recent Monitor Data Heart Rate from ECG 90 NIBP 109/65 NIBP BP-Mean 79 Respiration from ECG 14 SpO2 93 I&O: 02/02/19 02/03/19 02/04/19 06:59 06:59 06:59 Intake Total 680 1741 Output Total 1350 2050 Balance -670 -309 Result Diagrams: 02/03/19 03:30 02/03/19 03:30 ROS - Medication Medications: Active Medications Generic Name Dose Route Start Last Admin Trade Name Freq PRN Reason Stop Dose Admin Acetaminophen 650 mg 01/31/19 04:25 02/01/19 15:13 Tylenol PO 650 mg Q4H PRN Administration Headache/Fever/Mild Pain (1-3) Donepezil HCl 5 mg 02/01/19 09:00 02/03/19 11:47 Aricept PO 5 mg DAILY BERNARDINO Administration Famotidine 20 mg 02/01/19 09:00 02/03/19 11:46 Pepcid PO 20 mg DAILY BERNARDINO Administration Furosemide 40 mg 02/03/19 06:00 02/03/19 15:33 Lasix SLOW IVP Not Given 0600,1400 BERNARDINO Hyoscyamine Sulfate 0.25 mg 01/31/19 18:00 02/03/19 12:47 Levsin Sl SL Not Given Q6HR BERNARDINO Norepinephrine Bitartrate 8 mg 250 mls @ 0 mls/hr 01/31/19 06:15 01/31/19 16: 55 / Dextrose/Water IVPB 250 mls INF PRN Administration TO MAINTAIN MAP > 65 Protocol As Directed Linezolid 600 mg/ Device 300 mls @ 150 mls/hr 02/02/19 09:00 02/03/19 08:25 IVPB 300 mls Q12HR BERNARDINO Administration Meropenem 500 mg/ Sodium 100 mls @ 200 mls/hr 02/03/19 12:00 02/03/19 12:43 Chloride IVPB 100 mls 0000,1200 BERNARDINO Administration Morphine Sulfate 2 mg 02/01/19 18:27 02/03/19 12:10 Morphine SLOW IVP 2 mg Q2H PRN Administration Pain Sertraline HCl 50 mg 02/01/19 09:00 02/03/19 11:46 Zoloft PO 50 mg DAILY BERNARDINO Administration Tamsulosin HCl 0.4 mg 01/31/19 21:00 02/03/19 11:46 Flomax PO 0.4 mg BID BERNARDINO Administration - Exam ill appearing Eye: anicteric sclera Eye - other findings: EOMI ENT: moist mucosa Neck: supple, symmetric Heart - other findings: Irregularly irregular rhythm with a regular rate. Respiratory: rales, wheezes Respiratory - other findings: Decreased air movement secondary to body habitus Gastrointestinal: soft, non-tender, distended Extremities: 2+ LE edema Neurological: CN's grossly intact, no focal deficits, no new deficit Musculoskeletal: generalized weakness Psychiatric: oriented to person, flat affect. negative: oriented to place, oriented to time Hosp A/P (1) CHF (congestive heart failure), NYHA class III Code(s): I50.9 - HEART FAILURE, UNSPECIFIED Status: Chronic (2) Acute on chronic renal failure Code(s): N17.9 - ACUTE KIDNEY FAILURE, UNSPECIFIED; N18.9 - CHRONIC KIDNEY DISEASE, UNSPECIFIED Status: Acute Qualifiers: Acute renal failure type: with other specified pathological lesion Chronic kidney disease stage: stage 3 (moderate) Qualified Code(s): N17.8 - Other acute kidney failure; N18.3 - Chronic kidney disease, stage 3 (moderate) (3) CLL (chronic lymphocytic leukemia) Code(s): C91.90 - LYMPHOID LEUKEMIA, UNSPECIFIED NOT HAVING ACHIEVED REMISSION Status: Chronic (4) Physical deconditioning Code(s): R53.81 - OTHER MALAISE Status: Chronic (5) UTI (urinary tract infection) Status: Acute Qualifiers: Urinary tract infection type: acute cystitis Hematuria presence: without hematuria Qualified Code(s): N30.00 - Acute cystitis without hematuria (6) Coronary artery disease Code(s): I25.10 - ATHSCL HEART DISEASE OF [place] CORONARY ARTERY W/O ANG PCTRS Status: Chronic Qualifiers: Coronary Disease-Associated Artery/Lesion type: [place] artery [place] vs. transplanted heart: [place] heart Associated angina: without angina Qualified Code(s): I25.10 - Atherosclerotic heart disease of [place] coronary artery without angina pectoris (7) DM type 2 (diabetes mellitus, type 2) Status: Chronic Qualifiers: Diabetes mellitus pizza delivery insulin use: without usp use Diabetes mellitus complication status: with unspecified complications (8) Dyslipidemia Code(s): E78.5 - HYPERLIPIDEMIA, UNSPECIFIED Status: Chronic (9) H/O prostate cancer Code(s): Z85.46 - PERSONAL HISTORY OF MALIGNANT NEOPLASM OF PROSTATE Status: Chronic (10) HTN (hypertension) Code(s): I10 - ESSENTIAL (PRIMARY) HYPERTENSION Status: Chronic Qualifiers: Hypertension type: essential hypertension Qualified Code(s): I10 - Essential (primary) hypertension (11) Macrocytic anemia Code(s): D53.9 - NUTRITIONAL ANEMIA, UNSPECIFIED Status: Acute (12) Nephrolithiasis Status: Acute (13) Obesity (BMI 30-39.9) Code(s): E66.9 - OBESITY, UNSPECIFIED Status: Chronic (14) Parkinson disease Code(s): G20 - PARKINSON'S DISEASE Status: Chronic (15) Abdominal pain Code(s): R10.9 - UNSPECIFIED ABDOMINAL PAIN Status: Acute Qualifiers: (16) Metabolic encephalopathy Code(s): G93.41 - METABOLIC ENCEPHALOPATHY Status: Resolved (17) Septic shock Code(s): A41.9 - SEPSIS, UNSPECIFIED ORGANISM; R65.21 - SEVERE SEPSIS WITH SEPTIC SHOCK Status: Resolved - Plan Plan: ICU Pulmonology/CC consultation, recommendations appreciated Urology consultation, recommendations appreciated Nephrology consultation, recommendations appreciated Cardiology consultation, recommendations appreciated ID consultation, recommendations appreciated Will require HD, HD cath in place UZMA worsening CT abd/ pelvis with ileus Continues to have hematuria requiring flushing, Hgb not trending down Broad spectrum ABX, de escilate to culture and sensitivity as able Weaned off vasoactive medications as needed to maintain MAP >65 Caution with IV fluid resuscitation in the setting of reduced EF CHF S/p cystoscopy on 01/31/19 - see full op report for details Echo Continue home medications as able DVT PPX - SCDS - Chemical PPX contraindicated with hematuria GI PPX Long and short term prognosis for meaningful recovery is guarded - Patients son who is POA wishes patient to remain full code Greater than 40 minutes spent caring for the patient
--- NOTE | 2019-02-03 18:17 | OP ---
DATE OF PROCEDURE: 02/03/2019 PREOPERATIVE DIAGNOSIS: Acute renal failure. POSTOPERATIVE DIAGNOSIS: Acute renal failure. PROCEDURES: Placement of femoral dialysis catheter. ANESTHESIA: Local. ESTIMATED BLOOD LOSS: Minimal. COMPLICATION: None. SPECIMEN: None. DESCRIPTION OF PROCEDURE: The patient's right groin was shaved, prepped, and draped in a sterile fashion. Local anesthetic was infiltrated over the right femoral vein. Femoral vein was cannulated using Seldinger needle. Wire was passed under no tension. Small deon was made at the entrance site and the two dilators used to dilate the femoral vein under no tension. The Trialysis catheter was threaded to its fullest extent and sewn in place using the enclosed nylon suture, the wire was removed. All ports flushed and rebeca blood without difficulties, flushed with a heparin flush. Sterile dressings were placed. The patient tolerated the procedure well. Job ID: [id number]
[2019-02-04] MEDS: Hyoscyamine Sulfate SL 0.125 mg Tablet SL SCH ×5 (00:24→23:05)
[2019-02-04] MEDS: Morphine 4 MG/ML VIAL SLOW IVP PRN ×6 (01:00→21:43)
[2019-02-04 04:09] LABS: #Basophils 0.1 thou/uL (0.0-0.2); #Eosinphils 0.1 thou/uL (0.0-0.7); #Lymphocytes 3.5 thou/uL (1.20-3.40); #Monocytes 1.1 thou/uL (0.11-0.59); #Neutrophils 10.2 thou/uL (1.40-6.50); %Basophils 0.6 % (0.0-1.0); %Eosinophils 0.9 % (0.0-10.0); %Lymphocytes 23.5 % (21.0-51.0); %Monocytes 7.3 % (0.0-10.0); %Neutrophils 67.7 % (42.0-75.0); Hemoglobin 9.2 g/dL (14.0-18.0); Mean Corpuscular HGB CONC 33.6 g/dL (32.0-36.0); Mean Corpuscular Hemoglobin 32.6 pg (27.0-31.0); Mean Platelet Volume 7.7 fL (7.4-10.4); Platelet Count 227 thou/uL (130-400); RBC Distribution Width 13.2 % (11.5-14.5); Red Blood Cell (RBC) Count 2.82 mill/uL (4.70-6.10); White Blood Cell (WBC) Count 15.1 thou/uL (4.8-10.8)
[2019-02-04 04:32] LABS: Anion Gap 17 mmol/L (10-20); BUN (Urea Nitrogen) 61 mg/dL (8.4-25.7); Calc. Creatinine Clearance 15 mL/min (70-130); Calcium 8.4 mg/dL (7.8-10.44); Carbon Dioxide 20 mmol/L (23-31); Chloride 105 mmol/L (98-107); Estimated GFR-MDRD 10; Glucose 125 mg/dL (83-110); Potassium 4.2 mmol/L (3.5-5.1); Sodium 138 mmol/L (136-145)
[2019-02-04] MEDS: Furosemide 40 MG/4 ML VIAL SLOW IVP SCH ×2 (05:12→14:06)
--- NOTE | 2019-02-04 07:49 | PRG ---
DATE OF SERVICE: 02/04/2019 SUBJECTIVE: The patient confused, arousable. OBJECTIVE: VITAL SIGNS: Stable. He is afebrile off Levophed. Blood pressure 105/56, CBI going at a very slow rate, megan clear. I's and O's 1269 in and 1450 out. He was dialyzed yesterday, NG tube 350. Urine output 1100. GENERAL: The patient oriented x1, confused. ABDOMEN: Morbidly obese, protuberant, distended, diffuse tenderness. : Benavides catheter in place. CBI going at a slow rate. Preputial scrotal edema is consistent with fluid overload and anasarca. PERTINENT LABORATORY DATA: White count 15, hemoglobin stable at 9.2, status post 2 units, platelets 227. BUN today 61, creatinine 5.5, yesterday is predialysis 6.2. All cultures negative thus far, currently on meropenem. IMPRESSION AND PLAN: 1. 88-year-old male with history of horseshoe kidney. 2. Extensive bilateral renal stone moiety. 3. Presented with long-standing history likely of high-grade right ureteral obstruction due to mid to distal ureteral calculi, presented with ruptured collecting system with subcapsular hematoma, postop day #4 status post cysto, right retrograde, 6 x 22 double-J ureteral stent with 3-way Benavides catheter. 4. Hematuria, resolving. will hold CBI, monitor for recurrence of hematuria. Nursing provided regarding strict instructions to restart CBI if gross hematuria recurs. 5. Anemia, status post 2 units. H and H stable. 6. History of prostate cancer, in remission, Casodex discontinued by Med/Onc. 7. History of chronic lymphocytic leukemia. 8. History of atrial fibrillation. 9. Congestive heart failure with recent echocardiogram demonstrating EF of 30% to 35%. 10. Renal failure. 11. Sepsis. The patient's prognosis remains poor and guarded. Apparently, there is discrepancy regarding power of criminal attorney. Recommend case management, palliative care consult. Long discussion with son yesterday regarding presenting history and guarded clinical status. He has been updated regarding his plan of action, which I agreed /recom hemodialysis. The patient is 15 pounds plus since admission. hemodialysis p.r.n. per Nephrology. There are no indications to treat his ureteral or renal calculi at this time. when patient recovers medically, stone treatment would be elective. He remains critically ill, in guarded condition. Job ID: [id number] [facility]
[2019-02-04] MEDS: Donepezil HCl 5 MG TAB PO SCH (09:22)
[2019-02-04] MEDS: Famotidine 20 MG TAB PO SCH (09:23)
[2019-02-04] MEDS: Tamsulosin HCl 0.4 MG CAP PO SCH ×2 (09:25→20:04)
--- NOTE | 2019-02-04 09:31 | PRG ---
DATE OF SERVICE: 02/04/2019 SUBJECTIVE: He is a little more lethargic today than he has been before. He did get a session of dialysis yesterday. OBJECTIVE: VITAL SIGNS: On exam, temperature 98.4, pulse 100, blood pressure 90/61, O2 saturation 99%. Intake for 24 hours 1269, output 1450. HEENT: Unremarkable. NECK: No JVD. LUNGS: Fairly clear anteriorly. CARDIAC: S1 and S2. Regular. ABDOMEN: Less tender. EXTREMITIES: Edematous. LABORATORY DATA: Sodium 138, potassium 4.2, chloride 105, CO2 of 20, BUN 61, creatinine 5.5, glucose 125. White blood cell count 15.1, hematocrit 27.3, and platelet count 227. ASSESSMENT: 1. Acute renal failure. 2. Nephrolithiasis. 3. Status post septic shock. 4. Intraparenchymal bleed into a horseshoe kidney. PLAN: 1. Start Levophed for dialysis if needed. 2. I will withhold feeding him for the time being given that he has an ileus. Job ID: [id number]
[2019-02-04] MEDS: Linezolid 600 MG in Premix Bag 1 BAG IVPB SCH ×2 (09:42→19:51)
[2019-02-04] MEDS: Meropenem 500 MG in Sodium Chloride 0.9% 100 ML IVPB SCH ×2 (12:30→23:31)
--- NOTE | 2019-02-04 14:41 | PDOC.HOSPP ---
- Subjective Subjective: Seen and examined. After a long discussion with the and son, the has decided to make the patient a DNR and DNI. Patients tells me they have discussed this in the past and that he would not want to live artificially on machines. We will honor family wishes. Tolerated HD. Patient remains in good spirits. Abdominal pain persists, though abdomen is much softer and less distended after NG was placed. Discussed with family that long and short term prognosis for meaningful recovery is guarded. - Objective Vital Signs & Weight: Vital Signs (12 hours) Temp 02/04/19 12:00 98.2 F 02/04/19 08:00 98.4 F 02/04/19 03:00 98.2 F Weight Admit Weight 221 lb 12.56 oz Weight 235 lb 7.259 oz Most Recent Monitor Data Heart Rate from ECG 86 NIBP 102/50 NIBP BP-Mean 67 Respiration from ECG 17 SpO2 98 I&O: 02/03/19 02/04/19 02/05/19 06:59 06:59 06:59 Intake Total 1741 1269 1300 Output Total 2050 1450 Balance -309 -181 1300 Result Diagrams: 02/04/19 04:00 02/04/19 04:00 ROS - Medication Medications: Active Medications Generic Name Dose Route Start Last Admin Trade Name Vikki PRN Reason Stop Dose Admin Acetaminophen 650 mg 01/31/19 04:25 02/01/19 15:13 Tylenol PO 650 mg Q4H PRN Administration Headache/Fever/Mild Pain (1-3) Donepezil HCl 5 mg 02/01/19 09:00 02/04/19 09:22 Aricept PO Not Given DAILY BERNARDINO Furosemide 40 mg 02/03/19 06:00 02/04/19 14:06 Lasix SLOW IVP 40 mg 0600,1400 BERNARDINO Administration Hyoscyamine Sulfate 0.25 mg 01/31/19 18:00 02/04/19 12:32 Levsin Sl SL 0.25 mg Q6HR BERNARDINO Administration Norepinephrine Bitartrate 8 mg 250 mls @ 0 mls/hr 01/31/19 06:15 01/31/19 16: 55 / Dextrose/Water IVPB 250 mls INF PRN Administration TO MAINTAIN MAP > 65 Protocol As Directed Linezolid 600 mg/ Device 300 mls @ 150 mls/hr 02/02/19 09:00 02/04/19 09:42 IVPB 300 mls Q12HR BERNARDINO Administration Meropenem 500 mg/ Sodium 100 mls @ 200 mls/hr 02/03/19 12:00 02/04/19 12:30 Chloride IVPB 100 mls 0000,1200 BERNARDINO Administration Morphine Sulfate 2 mg 02/01/19 18:27 02/04/19 13:05 Morphine SLOW IVP 2 mg Q2H PRN Administration Pain Sertraline HCl 50 mg 02/01/19 09:00 02/04/19 09:25 Zoloft PO Not Given DAILY BERNARDINO Tamsulosin HCl 0.4 mg 01/31/19 21:00 02/04/19 09:25 Flomax PO Not Given BID BERNARDINO - Exam ill appearing Eye: PERRL Eye - other findings: EOMI Neck: supple, symmetric Heart: no murmur, no gallops, irregular Heart - other findings: Irregularly irregular rhythm with a regular rate. Respiratory: normal chest expansion, rales, rhonchi Gastrointestinal: soft, normal bowel sounds, tender to palpation, distended Extremities: no cyanosis, 2+ LE edema Neurological: CN's grossly intact, no focal deficits, no new deficit Musculoskeletal: generalized weakness Psychiatric: oriented to person. negative: oriented to place, oriented to time Hosp A/P (1) CHF (congestive heart failure), NYHA class III Code(s): I50.9 - HEART FAILURE, UNSPECIFIED Status: Acute (2) Acute on chronic renal failure Code(s): N17.9 - ACUTE KIDNEY FAILURE, UNSPECIFIED; N18.9 - CHRONIC KIDNEY DISEASE, UNSPECIFIED Status: Acute Qualifiers: Acute renal failure type: with other specified pathological lesion Chronic kidney disease stage: stage 3 (moderate) Qualified Code(s): N17.8 - Other acute kidney failure; N18.3 - Chronic kidney disease, stage 3 (moderate) (3) CLL (chronic lymphocytic leukemia) Code(s): C91.90 - LYMPHOID LEUKEMIA, UNSPECIFIED NOT HAVING ACHIEVED REMISSION Status: Chronic (4) Physical deconditioning Code(s): R53.81 - OTHER MALAISE Status: Chronic (5) UTI (urinary tract infection) Status: Acute Qualifiers: Urinary tract infection type: acute cystitis Hematuria presence: without hematuria Qualified Code(s): N30.00 - Acute cystitis without hematuria (6) Coronary artery disease Code(s): I25.10 - ATHSCL HEART DISEASE OF [place] CORONARY ARTERY W/O ANG PCTRS Status: Chronic Qualifiers: Coronary Disease-Associated Artery/Lesion type: [place] artery [place] vs. transplanted heart: [place] heart Associated angina: without angina Qualified Code(s): I25.10 - Atherosclerotic heart disease of [place] coronary artery without angina pectoris (7) DM type 2 (diabetes mellitus, type 2) Status: Chronic Qualifiers: Diabetes mellitus terminal gauger insulin use: without terminal gauger use Diabetes mellitus complication status: with unspecified complications (8) Dyslipidemia Code(s): E78.5 - HYPERLIPIDEMIA, UNSPECIFIED Status: Chronic (9) H/O prostate cancer Code(s): Z85.46 - PERSONAL HISTORY OF MALIGNANT NEOPLASM OF PROSTATE Status: Chronic (10) HTN (hypertension) Code(s): I10 - ESSENTIAL (PRIMARY) HYPERTENSION Status: Chronic Qualifiers: Hypertension type: essential hypertension Qualified Code(s): I10 - Essential (primary) hypertension (11) Macrocytic anemia Code(s): D53.9 - NUTRITIONAL ANEMIA, UNSPECIFIED Status: Acute (12) Nephrolithiasis Status: Acute (13) Obesity (BMI 30-39.9) Code(s): E66.9 - OBESITY, UNSPECIFIED Status: Chronic (14) Parkinson disease Code(s): G20 - PARKINSON'S DISEASE Status: Chronic (15) Abdominal pain Code(s): R10.9 - UNSPECIFIED ABDOMINAL PAIN Status: Acute Qualifiers: (16) Metabolic encephalopathy Code(s): G93.41 - METABOLIC ENCEPHALOPATHY Status: Resolved (17) Septic shock Code(s): A41.9 - SEPSIS, UNSPECIFIED ORGANISM; R65.21 - SEVERE SEPSIS WITH SEPTIC SHOCK Status: Resolved - Plan Plan: ICU Pulmonology/CC consultation, recommendations appreciated Urology consultation, recommendations appreciated Nephrology consultation, recommendations appreciated Cardiology consultation, recommendations appreciated ID consultation, recommendations appreciated vasoactive medications as needed to maintain MAP >65 HD as needed per nephrology, vasopressors if needed CT abd/ pelvis with ileus Has been having hematuria requiring flushing, Hgb not trending down - seems to be improving Broad spectrum ABX, de escilate to culture and sensitivity as able Caution with IV fluid resuscitation in the setting of reduced EF CHF S/p cystoscopy on 01/31/19 - see full op report for details Echo Continue home medications as able DVT PPX - SCDS - Chemical PPX contraindicated with hematuria GI PPX Long and short term prognosis for meaningful recovery is guarded - Patients / son have decided to make the patient DNR and DNI - we will honor their wishes
[2019-02-04] MEDS: Norepinephrine 8 MG in Dextrose 5% in Water 242 ML IVPB PRN (15:17)
--- NOTE | 2019-02-04 16:40 | PRG ---
DATE OF SERVICE: 02/04/2019 SUBJECTIVE: An 88-year-old gentleman being seen for end-stage renal disease. The patient denies any complaints. He is resting. OBJECTIVE: See above. GENERAL: Awake, alert, in no acute distress. On examination, the patient is resting. VITAL SIGNS: Pulse 95, breathing 16, blood pressure 100/64. GENERAL APPEARANCE AND MENTAL STATUS: Fair. HEAD/NECK: Normocephalic. Atraumatic. EYES: EOMI. No deformity. EARS: Clear. No ulcers. NOSE: Intact. No lesions. MOUTH: Clear. No discharge. THROAT: Clear. No exudate. LUNGS: Clear. No crackles. CARDIAC: S1, S2. No rub. ABDOMEN: Benign. Bowel sounds positive. GENITALIA/RECTUM: Benavides absent. BACK/EXTREMITIES: Edema 0+. NEUROLOGICAL: Alert and motor intact. SKIN: LYMPHATICS: LABORATORY DATA: Hemoglobin 9.2. Potassium 4.2, creatinine ASSESSMENT AND PLAN: 1. Stage 6 chronic kidney disease. Plan dialysis. 2. Hypertension, stable. 3. Anemia, stable. 4. Medication based on GFR appropriate. Overall prognosis remains poor due to multiple comorbidities and multiorgan failure. Job ID: [id number]
--- NOTE | 2019-02-04 17:23 | PRG ---
DATE OF SERVICE: 02/04/2019 SUBJECTIVE: The patient being dialyzed, at this time, feeling better, less abdominal distention, no respiratory symptoms. OBJECTIVE: VITAL SIGNS: Temperature max 98.4, blood pressure 100/64, heart rate 95, respiratory rate 20, O2 saturation 100. Right groin hemodialysis catheter. HEENT: Ocular movements conjugate. LUNGS: Symmetric air entry. Faint basilar crackles. HEART: S1 and S2, regular rate. ABDOMEN: Less distended. Benavides catheter with fairly clear urine with some blood in it. LABORATORY DATA: White cell count of 15,000, hemoglobin 9.2, platelets 227, 67% neutrophils, 22% lymphocytes. Creatinine is down to 5.51. Sodium 138. Microbiology with negative urine culture at 3 days. ASSESSMENT AND DISCUSSION: Severe nephrolithiasis, recurrent episodes of urosepsis. Chronic lymphocytic leukemia, on Imbruvica. Another episode of obstruction with likely infection, still negative cultures, status post stenting. The patient also had likely rupture of the collecting system with some bleeding from this rupture. The patient will continue on broad-spectrum antimicrobial coverage and hopefully, we will see improvement in renal function. Job ID: [id number]
--- NOTE | 2019-02-04 20:30 | PRG ---
DATE OF SERVICE: 02/04/2019 SUBJECTIVE: Mr. Rowland appears to be weaker today. He is also less responsive. He underwent dialysis. They pulled out 1.5 L. His blood pressure has been stable. He is not on pressors. PHYSICAL EXAMINATION: GENERAL: He does appear weak. VITAL SIGNS: Blood pressure 116/59, pulse 96, temperature afebrile. NEUROLOGIC: The patient is alert and oriented x3 with no focal neurologic deficits. HEENT: Sclerae without icterus. Mouth has moist mucous membranes with normal pallor. NECK: No JVD. Carotid upstroke brisk. No bruits bilaterally. LUNGS: Clear to auscultation with unlabored respirations. BACK: No scoliosis or kyphosis. CARDIAC: Regular rate and rhythm with normal S1 and S2. No S3 or S4 noted. No significant rubs, murmurs, thrills, or gallops noted throughout the precordium. PMI is not displaced. There is no parasternal heave. ABDOMEN: Soft, nontender, nondistended. No peritoneal signs present. No hepatosplenomegaly. No abnormal striae. EXTREMITIES: 2+ pitting edema. SKIN: No gross abnormalities. PERTINENT LABORATORY DATA: Hemoglobin 9.2. Creatinine 5.5. IMPRESSION: 1. Hematuria. 2. Horseshoe kidney. 3. Ischemic cardiomyopathy. 4. Status post ICD. RECOMMENDATIONS: Mr. Rowland fortunately has been holding from a CV standpoint. His blood pressure has been stable. He has no current symptoms suggesting angina. We will continue current course with continued bladder irrigation per Dr. Dagmar Tejada. We will also continue dialysis. Long-term dialysis has been discussed with family and Dr. Helton. Otherwise, I have no further recommendations. Job ID: [id number]
[2019-02-05 04:52] LABS: #Basophils 0.2 thou/uL (0.0-0.2); #Eosinphils 0.2 thou/uL (0.0-0.7); #Lymphocytes 3.9 thou/uL (1.20-3.40); #Monocytes 1.3 thou/uL (0.11-0.59); #Neutrophils 9.4 thou/uL (1.40-6.50); %Basophils 1.4 % (0.0-1.0); %Eosinophils 1.2 % (0.0-10.0); %Lymphocytes 26.1 % (21.0-51.0); %Monocytes 8.5 % (0.0-10.0); %Neutrophils 62.7 % (42.0-75.0); Mean Corpuscular HGB CONC 32.7 g/dL (32.0-36.0); Mean Corpuscular Hemoglobin 31.8 pg (27.0-31.0); Mean Corpuscular Volume 97.2 fL (78.0-98.0); Mean Platelet Volume 7.4 fL (7.4-10.4); Platelet Count 244 thou/uL (130-400); RBC Distribution Width 13.2 % (11.5-14.5); Red Blood Cell (RBC) Count 2.84 mill/uL (4.70-6.10)
[2019-02-05 05:10] LABS: Anion Gap 13 mmol/L (10-20); BUN (Urea Nitrogen) 45 mg/dL (8.4-25.7); Calc. Creatinine Clearance 19 mL/min (70-130); Calcium 8.8 mg/dL (7.8-10.44); Carbon Dioxide 27 mmol/L (23-31); Chloride 102 mmol/L (98-107); Estimated GFR-MDRD 14; Glucose 113 mg/dL (83-110); Potassium 4.1 mmol/L (3.5-5.1); Sodium 138 mmol/L (136-145)
[2019-02-05] MEDS: Furosemide 40 MG/4 ML VIAL SLOW IVP SCH ×2 (05:13→14:09)
[2019-02-05] MEDS: Hyoscyamine Sulfate SL 0.125 mg Tablet SL SCH ×4 (05:13→23:08)
--- NOTE | 2019-02-05 07:24 | PRG ---
DATE OF SERVICE: 02/05/2019 SUBJECTIVE: The patient remains in the CCU. He has been intermittently encephalopathic. Right now, he is conversant and seems to know everything that is going on. OBJECTIVE: VITAL SIGNS: Temperature 98.4, pulse 94, blood pressure 105/64, and O2 saturations 100% on nasal cannula. On Levophed drip at 2 mcg/minute. Intake for last 24 hours , and output from the Benavides is 650, through dialysis 1999. HEENT: Unremarkable. NECK: No JVD. LUNGS: Clear anteriorly. CARDIOVASCULAR: S1, S2. Regular. ABDOMEN: Softer, less tenderness. EXTREMITIES: Generalized mild edema. LABORATORY DATA: White blood cell count 15, hemoglobin 9, hematocrit 27.6, and platelet count 244. Sodium 138, potassium 4.1, chloride 102, CO2 of 27, BUN 45, creatinine 4.1, and glucose 113. ASSESSMENT: 1. Urosepsis/septic shock, which is resolved. 2. Hypotension, which I think is mediated by dialysis and fluid removal. 3. Status post intraparenchymal bleed into a horseshoe kidney. 4. Acute renal failure. PLAN: 1. He is continuing Zyvox and meropenem for his sepsis. I do not see an organism that has been identified. Dr. Alfred is on the case, and I will leave antibiotic management to him. 2. He continues on diuretics. Hopefully, wean off Levophed as his volume status normalizes. 3. Trial of clear liquids to see if he can tolerate eating. Job ID: [id number]
--- NOTE | 2019-02-05 08:08 | PRG ---
DATE OF SERVICE: 02/05/2019 SUBJECTIVE: The patient is more alert, states that he feels better. Clinically , appears to be improved after hemodialysis. Mental status improved. He is oriented x2. Vital signs are stable. Afebrile. He did require pressors during hemodialysis yesterday. Vital signs are stable. Urine output 650. His CBI was held yesterday; however, restarted at a low rate due to recurrent hematuria. Currently, it is dripping at a slow rate, megan clear urine. We did flush the tubing with no subsequent clots. I did gently manually irrigate his Benavides demonstrating no significant clots of concern. Abdomen is much softer; however, remains distended. NG tube in place. No rigidity. , decreased scrotal and preputial edema, improved with hemodialysis. Extremities, has persistent pedal edema. PERTINENT LABORATORY DATA: White count 15, hemoglobin 9.0, and platelet 244. Creatinine 4.1 and BUN 45. Cultures negative. IMPRESSION AND PLAN: 1. Mr. Rowland is an 88-year-old male with history of horseshoe kidney. 2. History of significant bilateral stone burden. 3. Presented with urosepsis, right severe hydronephrosis due to obstructing ureteral calculi resulting in ruptured collecting system subcapsular hematoma, postop day #5 cysto, right retrograde, 6 x 22 stent, and three-way Benavides catheter. 4. Hematuria, resolving, improving. We will monitor the patient off CBI. Restart p.r.n. if needed. Flush p.r.n. Nursing instruction provided. 5. Anemia, stable, status post 2 units. 6. History of prostate cancer in remission, Casodex on hold, discontinued by Med /Onc. 7. History of chronic lymphocytic leukemia. 8. History of atrial fibrillation. 9. History of congestive heart failure, ejection fraction 30%. 10. Renal failure. The patient's prognosis remained guarded, he appears to be clinically improved with hemodialysis. Long-term recovery of his renal function remains to be determined. Continue ICU monitoring. Job ID: [id number] MTDD
[2019-02-05] MEDS ORDERED: Famotidine/PF 20 mg/2ml Vial SLOW IVP SCH (09:00)
[2019-02-05] MEDS: Donepezil HCl 5 MG TAB PO SCH (10:19)
[2019-02-05] MEDS: Tamsulosin HCl 0.4 MG CAP PO SCH ×2 (10:19→20:02)
[2019-02-05] MEDS ORDERED: Heparin 10,000 UNITS/ 10 ML VIAL ONE (11:11)
--- NOTE | 2019-02-05 11:17 | PRG ---
DATE OF SERVICE: SUBJECTIVE: An 88-year-old gentleman being seen for end-stage renal disease. The patient denies any nausea, vomiting, chest pain. OBJECTIVE: GENERAL: The patient is awake and alert. VITAL SIGNS: Afebrile, pulse 75, breathing 16, blood pressure was 111/58 on Levophed. GENERAL APPEARANCE AND MENTAL STATUS: Fair. HEAD/NECK: Normocephalic. Atraumatic. EYES: EOMI. No deformity. EARS: Clear. No ulcers. NOSE: Intact. No lesions. MOUTH: Clear. No discharge. THROAT: Clear. No exudate. LUNGS: Clear. No crackles. CARDIAC: S1, S2. No rub. ABDOMEN: Benign. Bowel sounds positive. GENITALIA/RECTUM: Benavides absent. BACK/EXTREMITIES: Lower extremities have edema. NEUROLOGICAL: Alert and motor intact. SKIN: LYMPHATICS: LABORATORY DATA: Labs reviewed. ASSESSMENT AND PLAN: Stage 6 chronic kidney disease. Plan dialysis due to massive edema which has been improving. Anemia, stable. Medication based on GFR appropriate. Uremia, improved. The patient is much more awake, alert, and oriented. Job ID: [id number]
--- NOTE | 2019-02-05 13:44 | PDOC.HOSPP ---
- Subjective Subjective: Seen and examined. Clinically more awake and alert. Tolerating HD. Still with NG tube. No family at bedside this AM. - Objective Vital Signs & Weight: Vital Signs (12 hours) Temp Pulse BP Pulse Ox Pulse Ox 02/05/19 12:00 98.4 F 02/05/19 08:20 98 100/50 L 98 02/05/19 08:00 98.3 F 02/05/19 07:55 97 02/05/19 07:09 97 02/05/19 03:00 98.4 F Weight Admit Weight 221 lb 12.56 oz Weight 231 lb 4.238 oz Most Recent Monitor Data Heart Rate from ECG 92 NIBP 113/48 NIBP BP-Mean 69 Respiration from ECG 22 SpO2 99 I&O: 02/04/19 02/05/19 02/06/19 06:59 06:59 06:59 Intake Total 1269 1087 280 Output Total 1450 1050 360 Balance -181 37 -80 Result Diagrams: 02/05/19 04:36 02/05/19 04:36 ROS - Medication Medications: Active Medications Generic Name Dose Route Start Last Admin Trade Name Freq PRN Reason Stop Dose Admin Acetaminophen 650 mg 01/31/19 04:25 02/01/19 15:13 Tylenol PO 650 mg Q4H PRN Administration Headache/Fever/Mild Pain (1-3) Donepezil HCl 5 mg 02/01/19 09:00 02/05/19 10:19 Aricept PO 5 mg DAILY BERNARDINO Administration Furosemide 40 mg 02/03/19 06:00 02/05/19 05:13 Lasix SLOW IVP 40 mg 0600,1400 BERNARDINO Administration Hyoscyamine Sulfate 0.25 mg 01/31/19 18:00 02/05/19 05:13 Levsin Sl SL 0.25 mg Q6HR BERNARDINO Administration Norepinephrine Bitartrate 8 mg 250 mls @ 0 mls/hr 01/31/19 06:15 02/04/19 15: 17 / Dextrose/Water IVPB 250 mls INF PRN Administration TO MAINTAIN MAP > 65 Protocol As Directed Linezolid 600 mg/ Device 300 mls @ 150 mls/hr 02/02/19 09:00 02/04/19 19:51 IVPB 300 mls Q12HR BERNARDINO Administration Meropenem 500 mg/ Sodium 100 mls @ 200 mls/hr 02/03/19 12:00 02/04/19 23:31 Chloride IVPB 100 mls 0000,1200 BERNARDINO Administration Morphine Sulfate 2 mg 02/01/19 18:27 02/04/19 21:43 Morphine SLOW IVP 2 mg Q2H PRN Administration Pain Sertraline HCl 50 mg 02/01/19 09:00 02/05/19 10:19 Zoloft PO 50 mg DAILY BERNARDINO Administration Tamsulosin HCl 0.4 mg 01/31/19 21:00 02/05/19 10:19 Flomax PO 0.4 mg BID BERNARDINO Administration - Exam ill appearing Eye: PERRL, anicteric sclera ENT: no oropharyngeal lesions Neck: supple, symmetric Heart: no murmur, no gallops, irregular Heart - other findings: irregularly irregular rhythm with regular rate Respiratory: no rales, no ronchi, wheezes. negative: normal chest expansion Respiratory - other findings: Decreased pulmonary excursion secondary to body habitus Gastrointestinal: no palpable masses, no hepatomegaly, tender to palpation, distended Extremities: 2+ LE edema Skin: no rashes Neurological: CN's grossly intact, no focal deficits, no new deficit Musculoskeletal: generalized weakness, diffuse muscle atrophy Psychiatric: normal affect, oriented to person. negative: oriented to place, oriented to time Hosp A/P (1) CHF (congestive heart failure), NYHA class III Code(s): I50.9 - HEART FAILURE, UNSPECIFIED Status: Acute (2) Acute on chronic renal failure Code(s): N17.9 - ACUTE KIDNEY FAILURE, UNSPECIFIED; N18.9 - CHRONIC KIDNEY DISEASE, UNSPECIFIED Status: Acute Qualifiers: Acute renal failure type: with other specified pathological lesion Chronic kidney disease stage: stage 3 (moderate) Qualified Code(s): N17.8 - Other acute kidney failure; N18.3 - Chronic kidney disease, stage 3 (moderate) (3) CLL (chronic lymphocytic leukemia) Code(s): C91.90 - LYMPHOID LEUKEMIA, UNSPECIFIED NOT HAVING ACHIEVED REMISSION Status: Chronic (4) Physical deconditioning Code(s): R53.81 - OTHER MALAISE Status: Chronic (5) UTI (urinary tract infection) Status: Acute Qualifiers: Urinary tract infection type: acute cystitis Hematuria presence: without hematuria Qualified Code(s): N30.00 - Acute cystitis without hematuria (6) Coronary artery disease Code(s): I25.10 - ATHSCL HEART DISEASE OF [place] CORONARY ARTERY W/O ANG PCTRS Status: Chronic Qualifiers: Coronary Disease-Associated Artery/Lesion type: [place] artery [place] vs. transplanted heart: [place] heart Associated angina: without angina Qualified Code(s): I25.10 - Atherosclerotic heart disease of [place] coronary artery without angina pectoris (7) DM type 2 (diabetes mellitus, type 2) Status: Chronic Qualifiers: Diabetes mellitus longterm insulin use: without longterm use Diabetes mellitus complication status: with unspecified complications (8) Dyslipidemia Code(s): E78.5 - HYPERLIPIDEMIA, UNSPECIFIED Status: Chronic (9) H/O prostate cancer Code(s): Z85.46 - PERSONAL HISTORY OF MALIGNANT NEOPLASM OF PROSTATE Status: Chronic (10) HTN (hypertension) Code(s): I10 - ESSENTIAL (PRIMARY) HYPERTENSION Status: Chronic Qualifiers: Hypertension type: essential hypertension Qualified Code(s): I10 - Essential (primary) hypertension (11) Macrocytic anemia Code(s): D53.9 - NUTRITIONAL ANEMIA, UNSPECIFIED Status: Acute (12) Nephrolithiasis Status: Acute (13) Obesity (BMI 30-39.9) Code(s): E66.9 - OBESITY, UNSPECIFIED Status: Chronic (14) Parkinson disease Code(s): G20 - PARKINSON'S DISEASE Status: Chronic (15) Abdominal pain Code(s): R10.9 - UNSPECIFIED ABDOMINAL PAIN Status: Acute Qualifiers: (16) Metabolic encephalopathy Code(s): G93.41 - METABOLIC ENCEPHALOPATHY Status: Resolved (17) Septic shock Code(s): A41.9 - SEPSIS, UNSPECIFIED ORGANISM; R65.21 - SEVERE SEPSIS WITH SEPTIC SHOCK Status: Resolved - Plan Plan: ICU Pulmonology/CC consultation, recommendations appreciated Urology consultation, recommendations appreciated Nephrology consultation, recommendations appreciated Cardiology consultation, recommendations appreciated ID consultation, recommendations appreciated vasoactive medications as needed to maintain MAP >65 HD as needed per nephrology, vasopressors if needed CT abd/ pelvis with ileus Resolving hematuria, stopping CBI Broad spectrum ABX, de escilate to culture and sensitivity as able Caution with IV fluid resuscitation in the setting of reduced EF CHF S/p cystoscopy on 01/31/19 - see full op report for details Echo Continue home medications as able DVT PPX - SCDS - Chemical PPX contraindicated with hematuria GI PPX Long and short term prognosis for meaningful recovery is guarded - Patients / son have decided to make the patient DNR and DNI - we will honor their wishes
[2019-02-05] MEDS: Meropenem 500 MG in Sodium Chloride 0.9% 100 ML IVPB SCH ×2 (14:08→23:23)
[2019-02-05] MEDS: Linezolid 600 MG in Premix Bag 1 BAG IVPB SCH ×2 (14:21→20:02)
[2019-02-05] MEDS: Norepinephrine 8 MG in Dextrose 5% in Water 242 ML IVPB PRN (23:05)
--- NOTE | 2019-02-05 23:41 | PDOC.CTH ---
Cardiology Progress Note - Subjective Patient seen earlier this morning at approximately 10am. Mild encephlopathic, but improved per staff and compared to previous notes. No new events. Continues with good output on HD. - Objective Vital Signs Temp Pulse Pulse BP BP Pulse Ox Pulse Ox 02/05/19 23:00 98.3 F 02/05/19 19:35 94 L 02/05/19 19:00 98.3 F 02/05/19 17:00 98.1 F 02/05/19 14:42 92 91 117/51 L 108/76 95 02/05/19 14:00 98.1 F 02/05/19 12:00 98.4 F Pulse Ox 02/05/19 23:00 02/05/19 19:35 02/05/19 19:00 02/05/19 17:00 02/05/19 14:42 97 02/05/19 14:00 02/05/19 12:00 Admit Weight 221 lb 12.56 oz Weight 231 lb 4.238 oz 02/04/19 02/05/19 02/06/19 06:59 06:59 06:59 Intake Total 1269 1087 1199 Output Total 1450 1050 440 Balance -181 37 759 - Physical Examination General/Neuro: other: (alert and awake) Lungs: CTA Heart: RRR Abdomen: soft - Labs Result Diagrams: 02/05/19 04:36 02/05/19 04:36 Troponin/CKMB CK-MB (CK-2) 0.8 ng/mL (0-6.6) 01/31/19 02:45 Troponin I 0.036 ng/mL (< 0.028) H 01/31/19 09:43 - Assessment/Plan 1. Urosepsis and shock 2. ICMO 3. s/p ICD 4. Advanced CKD on HD Continue antibiotics and supportive care. No changes today.
[2019-02-06] MEDS: Acetaminophen 325 MG TAB PO PRN ×2 (04:08→11:49)
[2019-02-06 04:42] LABS: #Basophils 0.2 thou/uL (0.0-0.2); #Eosinphils 0.3 thou/uL (0.0-0.7); #Monocytes 1.3 thou/uL (0.11-0.59); #Neutrophils 7.9 thou/uL (1.40-6.50); %Basophils 1.5 % (0.0-1.0); %Lymphocytes 29.2 % (21.0-51.0); %Monocytes 9.7 % (0.0-10.0); %Neutrophils 57.6 % (42.0-75.0); Hemoglobin 8.9 g/dL (14.0-18.0); Mean Corpuscular HGB CONC 33.5 g/dL (32.0-36.0); Mean Corpuscular Hemoglobin 32.5 pg (27.0-31.0); Mean Platelet Volume 7.2 fL (7.4-10.4); Platelet Count 278 thou/uL (130-400); RBC Distribution Width 13.2 % (11.5-14.5); Red Blood Cell (RBC) Count 2.74 mill/uL (4.70-6.10); White Blood Cell (WBC) Count 13.8 thou/uL (4.8-10.8)
[2019-02-06 05:17] LABS: Anion Gap 15 mmol/L (10-20); BUN (Urea Nitrogen) 36 mg/dL (8.4-25.7); Calc. Creatinine Clearance 24 mL/min (70-130); Carbon Dioxide 26 mmol/L (23-31); Chloride 101 mmol/L (98-107); Estimated GFR-MDRD 18; Glucose 122 mg/dL (83-110); Potassium 3.6 mmol/L (3.5-5.1); Sodium 138 mmol/L (136-145)
[2019-02-06] MEDS: Furosemide 40 MG/4 ML VIAL SLOW IVP SCH ×2 (05:21→15:41)
[2019-02-06] MEDS: Hyoscyamine Sulfate SL 0.125 mg Tablet SL SCH ×3 (05:21→18:09)
--- NOTE | 2019-02-06 08:32 | PRG ---
DATE OF SERVICE: 02/06/2019 SUBJECTIVE: The patient is arousable, oriented x2, resting comfortably at rest. dialyzed yesterday, requiring pressors during dialysis, currently on low-dose Levophed. OBJECTIVE: VITAL SIGNS: Afebrile. Blood pressure 120/63. Abdomen: As previous grossly distended, however is soft. : Benavides catheter, 3-way, on hold with CBI, megan yellow urine in the bag. Nursing does require occasional flushing through the CBI when there is hematuria present. Overall hematuria component is improving. Hemoglobin stable. PERTINENT LABORATORY DATA: White count 13, hemoglobin 8.9, platelet 273. BUN 36, creatinine 3.22. All cultures negative thus far IMPRESSION AND PLAN: Mr. Rowland is an 88-year-old male with history of 1. Horseshoe kidney. 2. History of significant bilateral stone burden. 3. Current presentation due to urosepsis, severely obstructing right renal moiety due to ureteral calculi, resulting in calyceal rupture and subcapsular hematoma. Postop day #6 cysto right retrograde, 6 x 22 stent, 3-way Benavides. 4. Hematuria, resolving, improving, H and H stable. CBI in place, on hold. Nursing to flush p.r.n. 5. History of prostate cancer, in remission. Casodex on hold per Med/Onc. 6. History of chronic lymphocytic leukemia, followed by Dr. Mccann. 7. History of atrial fibrillation. 8. History of congestive heart failure with EF of 30%. 9. Renal failure, on hemodialysis, requiring pressure support. Continue ICU monitoring. No further surgical intervention is warranted at this time. patient needs to be medically optimized. His prognosis remains guarded. Continue present management. Job ID: [id number] [facility]
[2019-02-06] MEDS: Linezolid 600 MG in Premix Bag 1 BAG IVPB SCH (09:50)
[2019-02-06] MEDS: Famotidine 20 MG TAB PO SCH (09:50)
[2019-02-06] MEDS: Tamsulosin HCl 0.4 MG CAP PO SCH ×2 (09:50→21:50)
[2019-02-06] MEDS: Donepezil HCl 5 MG TAB PO SCH (09:50)
--- NOTE | 2019-02-06 11:40 | PRG ---
DATE OF SERVICE: 02/06/2019 SUBJECTIVE: This is an 88-year-old gentleman being seen for acute kidney injury, which is dialysis dependent. The patient denies any complaint, looks better. OBJECTIVE: See above. The patient is awake and alert, in no acute distress. VITAL SIGNS: Pulse 98, breathing 16, blood pressure 94/68, on pressors. GENERAL APPEARANCE AND MENTAL STATUS: Fair. HEAD/NECK: Normocephalic. Atraumatic. EYES: EOMI. No deformity. EARS: Clear. No ulcers. NOSE: Intact. No lesions. MOUTH: Clear. No discharge. THROAT: Clear. No exudate. LUNGS: Clear. No crackles. CARDIAC: S1, S2. No rub. ABDOMEN: Benign. Bowel sounds positive. GENITALIA/RECTUM: Benavides absent. BACK/EXTREMITIES: Edema 4+. NEUROLOGICAL: Alert and motor intact. SKIN: LYMPHATICS: LABORATORY DATA: Labs show hemoglobin 8.9. Creatinine 3.2. ASSESSMENT AND PLAN: 1. Chronic kidney disease, stage 6. Plan dialysis tomorrow. 2. Congestive heart failure, stable. 3. Hypotension, on pressors. 4. Multiorgan failure. Overall prognosis is poor. Risks versus benefits of dialysis as an outpatient were discussed. The family is in the decisive mode. Job ID: [id number]
[2019-02-06] MEDS: Meropenem 500 MG in Sodium Chloride 0.9% 100 ML IVPB SCH (12:03)
--- NOTE | 2019-02-06 13:15 | PDOC.PALCO ---
Palliative Care Consult - Consult Details Requesting Physician: Dr Tejada Reason for Consult: family support Family Members Present: Son and paitent - Pertinent HPI Presented to the emergency room with complaints of nausea, vomiting, diarrhea with fever for the past 2-3 days. No identified trigger or measures that alleviated the symptoms. During evaluation in the emergency room patient was noted to be hypotensive, admitted for septic shock. Franklin has had continued decline and required dialysis. Palliative Care consult for support of family. - Pertinent PMH CLL, Hypertension, kidney stones, CHF, A fib, microcytic anemia, horseshoe kidney, diabetes, prostate cancer, Parkinson, chronic UTI. - Social History Smoking Status: Unknown if ever smoked Alcohol Use: none Drug Use History: none Living Situation: other (lives iwth son and , son is MPOA) - Allergies Allergies/Adverse Reactions: Allergies Allergy/AdvReac Type Severity Reaction Status Date / Time No Known Drug Allergies Allergy Verified 09/09/16 17:33 - Subjective Patient intermittently sleeping during visit. No specific complaints today. Patient and his son are at bedside. Dr Helton discussed dialysis and potential outcomes. ROS: 10 point review negative - Objective Vital Signs: Vital Signs - Most Recent Temp Pulse Resp BP Pulse Ox 98.5 F 92 19 117/51 L 99 02/06/19 05:00 02/05/19 14:42 02/02/19 12:50 02/05/19 14:42 02/06/19 10:30 Palliative Performance Scale: 30 - Physical Exam Constitutional: confusion HEENT: moist MMs, EOMI Respiratory: unlabored breathing Cardiovascular: RRR Gastrointestinal: soft, positive bowel sounds Musculoskeletal: edema present (mild edema to hands) Deviation from normal: lethargic Deviation from normal: Fair turgor, brusing in various stages. Thin fragile skin - Problem List (1) Palliative care encounter Code(s): Z51.5 - ENCOUNTER FOR PALLIATIVE CARE Current Visit: Yes Status: Acute (2) CHF (congestive heart failure), NYHA class III Code(s): I50.9 - HEART FAILURE, UNSPECIFIED Current Visit: Yes Status: Acute (3) Acute on chronic renal failure Code(s): N17.9 - ACUTE KIDNEY FAILURE, UNSPECIFIED; N18.9 - CHRONIC KIDNEY DISEASE, UNSPECIFIED Current Visit: No Status: Acute Qualifiers: Acute renal failure type: with other specified pathological lesion Chronic kidney disease stage: stage 3 (moderate) Qualified Code(s): N17.8 - Other acute kidney failure; N18.3 - Chronic kidney disease, stage 3 (moderate) (4) Physical deconditioning Code(s): R53.81 - OTHER MALAISE Current Visit: No Status: Chronic - Plan/Recommendations Plan: Lengthy time spent (45 minutes) with family and patient. Discussed possible outcomes. Encouraged life review to reflect on patient previous expressed wishes related to treatment and measures that extend life verses measures that provide comfort. Therapeutic listening. Palliative Crae Team / Perla Fields RN and myself will continue to follow and offer support to patient, son and patient . states that she and her both had previous marriages with each having other children, neither of them have contact with their other children. states she and Mr Rowland have been 47 years and have one son, who is present, together. [75] minutes spent on this encounter with >50% of the time in counseling and coordination of care. Thank you for this very appropriate consult.
--- NOTE | 2019-02-06 13:37 | PRG ---
DATE OF SERVICE: 02/06/2019 SUBJECTIVE: The patient is seen and examined at the bedside. He does not have much complaints to offer, and he is getting irrigation of his urinary bladder. His hematuria is clearing up. OBJECTIVE: VITAL SIGNS: Blood pressure is 95/68, pulse is 98, respiratory rate is 16, and O2 saturation is 98% on room air. HEENT: His head is atraumatic and normocephalic. Eyes are PERRLA. Sclerae are nonicteric. Oral mucosa is moist. LUNGS: Breath sounds are somewhat diminished at both bases. HEART: S1 and S2, somewhat irregular. No S3. No S4. ABDOMEN: Soft, nontender. EXTREMITIES: 1+ to 2+ swelling. NEUROLOGICAL: He follows my commands. He moves his all 4 extremities. LABORATORY DATA: White count of 13.8, hemoglobin 8.9, hematocrit 26.6, platelet count is 278,000. Normal electrolytes. BUN of 36 and creatinine 3.22. Glucose is 122, calcium 9.0. Microbiology, no new tests were done. IMPRESSION: 1. Congestive heart failure. 2. Nhjyj-hj-ldvcwtj renal failure, currently on dialysis per linecasting machine keyboard operator service. 3. Chronic lymphocytic leukemia. 4. Coronary artery disease, chronic, stable. 5. Sepsis, improved. 6. Hypotension, secondary to sepsis. The patient is still requiring a small dose of Levophed. 7. Microcytic anemia. 8. Nephrolithiasis, resulting in a rupture of calyx and subcapsular hematoma with retroperitoneal bleed. DISCUSSION: The patient is receiving linezolid and meropenem. He had two bowel movements, so his GI function is coming back. I will continue hemodialysis per linecasting machine keyboard operator. I will continue Levophed small dose until his blood pressure does not require any support. His creatinine is gradually coming down. Thanks to Hemodialysis, and we will continue supportive care in intensive care unit, he is very deconditioned. Job ID: [id number]
[2019-02-06] MEDS: Carbidopa/Levodopa 25-100 mg Tablet PER TUBE SCH ×2 (16:26→21:50)
[2019-02-06] MEDS: HYDROcodone/Acetaminophen 7.5/325 mg Tablet PO PRN ×2 (16:33→22:58)
--- NOTE | 2019-02-06 17:28 | PRG ---
DATE OF SERVICE: 02/06/2019 SUBJECTIVE: Mr. Rowland has no complaints other than hurting all over. OBJECTIVE: VITAL SIGNS: Heart rate is 90, blood pressure 108/48, respiratory rate is 19, oximetry is 99%. HEAD AND NECK: Unremarkable. LUNGS: Clear anteriorly. HEART: Regular rhythm, S1 and S2 are normal. ABDOMEN: Protuberant, diffusely mildly tender as well as tympanitic. EXTREMITIES: Without clubbing, cyanosis, or edema. LABORATORY DATA: Intake and outputs recorded as being positive at 1213 mL. White count 13.8, hemoglobin 8.9, and platelets 278. Sodium 138, potassium 3.6, chloride 101, bicarb 26, BUN 36, creatinine 3.22, and glucose 122. Urine output for 24 hours was 560 mL. IMPRESSION: 1. Clinical sepsis. Cultures to date are negative. 2. Renal failure. 3. History of horseshoe kidney, parenchymal bleed. 4. Deconditioning with obesity. 5. History of chronic lymphocytic leukemia. 6. History of coronary artery disease. 7. History of nephrolithiasis. 8. Anemia that is likely multifactorial. PLAN: Continue supportive care. He clinically appears stable enough to move out of the Critical Care Unit. Job ID: [id number]
--- NOTE | 2019-02-06 19:51 | PRG ---
DATE OF SERVICE: 02/06/2019 SUBJECTIVE: The patient is awake, having some intermittent pain in the abdomen, mostly in the right upper quadrant, but sometimes with pain in the appendicular structures as well. He is oriented and follows commands. Some dyspnea. No chest pain. OBJECTIVE: VITAL SIGNS: He has been afebrile and the other vital signs are fairly stable. BP 196/60, pulse 72. I's and O's are slightly positive over the past 2 days and today there is 1200 positive. Output around 1300. GENERAL: Chronically ill appearing, but in no acute distress. HEENT: Ocular movements are conjugate. Pupils are equal. LUNGS: Symmetric air entry. HEART: S1, S2. Regular rate. ABDOMEN: Distended and diffusely tender. Indwelling Benavides catheter. EXTREMITIES: He is able to wiggle his distal ends of his upper and lower extremities. LABORATORY DATA: His white cell count is down to 13.8. Hemoglobin 8.9, platelets 278, 57% neutrophils, 29% lymphocytes. The creatinine is down to 3.22. Sodium 138. Microbiology: Again no growth in blood or urine cultures. He is currently on linezolid and meropenem. ASSESSMENT AND DISCUSSION: Severe nephrolithiasis, recurrent with episodes of urosepsis, chronic lymphocytic leukemia, on Imbruvica and another episode of obstruction with possible or likely infection, although cultures are negative, status post stenting with rupture of collecting system, some bleeding from the rupture. At this point, we will discontinue linezolid and continue the remainder antimicrobial. His kidney functions seems to be improving steadily. If the cultures are negative in final results then we should be able to discontinue antimicrobial therapy and then use antimicrobials in a preemptive fashion with periotic checking of his urinalysis and culture. Job ID: [id number] [facility]
[2019-02-07] MEDS: Hyoscyamine Sulfate SL 0.125 mg Tablet SL SCH ×4 (00:03→18:53)
[2019-02-07] MEDS: Meropenem 500 MG in Sodium Chloride 0.9% 100 ML IVPB SCH ×2 (00:05→11:30)
[2019-02-07 05:01] LABS: Anion Gap 13 mmol/L (10-20); BUN (Urea Nitrogen) 49 mg/dL (8.4-25.7); Calc. Creatinine Clearance 21 mL/min (70-130); Calcium 8.6 mg/dL (7.8-10.44); Carbon Dioxide 26 mmol/L (23-31); Chloride 102 mmol/L (98-107); Estimated GFR-MDRD 16; Glucose 103 mg/dL (83-110); Potassium 3.3 mmol/L (3.5-5.1); Sodium 138 mmol/L (136-145)
[2019-02-07 05:25] LABS: Band 2 % (5-11); Eosinophils 8 % (0-10); Hemoglobin 7.3 g/dL (14.0-18.0); Lymphocytes 19 % (21-51); MDiff Complete? YES; Mean Corpuscular Volume 96.9 fL (78.0-98.0); Mean Platelet Volume 7.4 fL (7.4-10.4); Monocytes 5 % (0-10); Neutrophil 66 % (42-75); Platelet Count 323 thou/uL (130-400); RBC Distribution Width 13.3 % (11.5-14.5); Red Blood Cell (RBC) Count 2.27 mill/uL (4.70-6.10); White Blood Cell (WBC) Count 14.9 thou/uL (4.8-10.8)
[2019-02-07] MEDS: Morphine 4 MG/ML VIAL SLOW IVP PRN ×2 (06:09→12:54)
[2019-02-07] MEDS: Carbidopa/Levodopa 25-100 mg Tablet PER TUBE SCH ×3 (06:10→21:46)
--- NOTE | 2019-02-07 07:46 | PRG ---
DATE OF SERVICE: 02/06/2019 SUBJECTIVE: Mr. Rowland is an 88-year-old gentleman, I have seen him recently. He continues to be on pressor support. This was required for dialysis. Otherwise from a CV standpoint, his blood pressure and heart rate have been marginal. His hematuria appears to slowly be improving. OBJECTIVE: GENERAL: Patient is a pleasant gentleman, who is in no acute distress. The patient appears weak. VITAL SIGNS: Blood pressure 107/51, pulse 69, temperature afebrile. NEUROLOGIC: The patient is alert and oriented x3 with no focal neurologic deficits. HEENT: Sclerae without icterus. Mouth has moist mucous membranes with normal pallor. NECK: No JVD. Carotid upstroke brisk. No bruits bilaterally. LUNGS: Clear to auscultation with unlabored respirations. BACK: No scoliosis or kyphosis. CARDIAC: Regular rate and rhythm with normal S1 and S2. No S3 or S4 noted. No significant rubs, murmurs, thrills, or gallops noted throughout the precordium. PMI is not displaced. There is no parasternal heave. ABDOMEN: Soft, nontender, nondistended. No peritoneal signs present. No hepatosplenomegaly. No abnormal striae. EXTREMITIES: 2+ femoral and 2+ dorsalis pedis pulses. No cyanosis or clubbing. 2+ pitting edema. SKIN: No gross abnormalities. PERTINENT LABORATORY DATA: Hemoglobin 8.9, white blood cell count 13.8. Creatinine 3.2. IMPRESSION: 1. Renal failure. 2. Ischemic cardiomyopathy. 3. Status post implantable cardioverter-defibrillator. 4. Horseshoe kidney. 5. Hematuria. RECOMMENDATIONS: From a CV standpoint, he appears stable. He is on low-dose Levophed. I would anticipate discontinuing over the next several hours. The patient does appear markedly weak, and based on his kidney function and ischemic cardiomyopathy, he will require a prolonged rehabilitation course and is unlikely to get back to his previous condition. Overall prognosis does appear poor to return to his baseline. Job ID: [id number]
--- NOTE | 2019-02-07 08:06 | PRG ---
DATE OF SERVICE: 02/07/2019 OBJECTIVE: GENERAL: The patient is alert, oriented x2. VITAL SIGNS: He is afebrile. All pressure is blood pressure variable from 109/ 42 to 93/57. LUNGS: Clear, decreased inspiratory effort. HEART: Regular rate. ABDOMEN: Obese, protuberant, distended; however, his abdominal exam is much softer, not as tense. EXTREMITIES: Bilateral lower extremity edema consistent with fluid overload. Admitting weight is 215#, increased to 236, currently 223 #after HD . Benavides draining megan-tinged urine. He is not on continuous bladder irrigation, requires flushing through the tubing p.r.n. with immediate clearing. manually irrigate his Benavides at bedside demonstrating no clots in the bladder with immediate clearing. PERTINENT LABORATORY DATA: BUN 49, creatinine 3.62. White count 14, hemoglobin 8.3, platelet 323. IMPRESSION: Mr. Rowland is an 88-year-old male with history of, 1. Horseshoe kidney. 2. History of significant bilateral renal stone burden. 3. High-grade obstruction of the right collecting system, renal moiety due to ureteral calculi resulting in calyceal rupture/subcapsular hematoma . POD #7, status post cystoscopy, right retrograde, 6 x 22 stent three-way Benavides. 4. Hematuria, improving. Occasionally requires flushing through the tubing; however, hematuria component has significantly improved. 5. History of prostate cancer in remission on Casodex, on hold per Medical Oncology. 6. History of chronic lymphocytic leukemia, followed by Dr. Mccann. 7. History of atrial fibrillation, off Eliquis due to recent renal parenchymal bleed secondary to high-grade obstruction. 8. History of congestive heart failure, ejection fraction 30%. 9. Renal failure multifactorial. He has been dialyzed intermittently, requiring pressure support during dialysis. He remains in critical condition. Recommend continuing ICU monitor. Party Plan Salesperson did order an acute abdominal series today Iwill reviewed as well. Continue to monitor CBC. Transfuse as indicated. There are no indications for further surgical intervention at this time given his clinical status. Plan is to perform ureteroscopy laser lithotripsy in a few weeks, when he has improved from Cardiopulmonary perspective. Dr. Hinson is covering me this weekend. Job ID: [id number] [facility]
--- NOTE | 2019-02-07 08:14 | PRG ---
DATE OF SERVICE: 02/07/2019 SUBJECTIVE: Mr. Jay today is complaining of discomfort. He appears to have diffuse pain, but mainly to the left upper quadrant. No chest pain or pressure noted. OBJECTIVE: VITAL SIGNS: Blood pressure 102/57, pulse 93, temperature afebrile. LUNGS: Clear to auscultation. HEART: Regular rate and rhythm with extra systolic beats. ABDOMEN: Tenderness noted to mild palpation in the left upper quadrant. EXTREMITIES: 2+ pitting edema. PERTINENT LABORATORY DATA: Creatinine 3.6. Hemoglobin 7.3. IMPRESSION: 1. Abdominal pain. 2. Ischemic cardiomyopathy. 3. Hematuria. 4. Horseshoe kidney. 5. Renal failure. RECOMMENDATIONS: GI has been consulted. X-ray of the abdomen has also been requested. He is off pressors with the stable blood pressure and heart rate. Again, prognosis appears guarded. Job ID: [id number]
--- NOTE | 2019-02-07 08:32 | RAD ---
ABDOMINAL SURVEY WITH UPRIGHT CHEST AND 2 VIEW ABDOMEN: Upright portable chest obtained along with a supine abdomen and a left lateral decubitus of abdomen. INDICATION: Abdominal distention and pain. COMPARISON: Correlation is made to CT of 02/02/2019. The lungs show bilateral effusions and bibasilar atelectasis as noted on the CT through the lung bases. The rounded mass density in the right lower lung has bee n previously noted. Images of the abdomen show gas-filled distended loops of small and large bowel. A right ureteral michael nt is noted with bilateral renal calcifications. Horseshoe kidney was noted on the CT. No free air identified. No change in the appearance of the bowel gas pattern when compared to the CT of 02/02/2019. POS: [facility]
--- NOTE | 2019-02-07 09:31 | PRG ---
DATE OF SERVICE: 02/07/2019 SUBJECTIVE: Pierre Rowland is off pressors. He still complains of hurting all over. He points to his abdomen when asked where his worst pain is. He actually moans when he squeeze any of his muscles on his extremities equally to the moaning he does when he has his abdomen palpated. OBJECTIVE: VITAL SIGNS: His heart rate is 95, blood pressure is 109/42, and respiratory rate is 20. GENERAL: He is in no distress. LUNGS: Clear. HEART: Regular rhythm. S1 and S2 are normal. ABDOMEN: Distended and diffusely tender, but no more than yesterday. EXTREMITIES: All tender. IMAGING STUDIES: Abdominal survey, an upright chest was done today. He has bilateral effusions, bibasilar atelectasis, density at his right lung base. He has no free air. He has a similar bowel-gas pattern comparing back to February [address] IMPRESSION: 1. Nephrolithiasis. 2. Status post cystoscopy with stenting. 3. Hematuria. 4. Prostate cancer. 5. Chronic lymphocytic leukemia. 6. Atrial fibrillation, off anticoagulants. 7. Cardiomyopathy that is severe with an ejection fraction of 30%. 8. Density at his right lung base of an unclear etiology. 9. Renal failure. 10. Hypotension, now off pressors. Cultures were again reviewed. There are no pathogens that have been isolated. 11. Continue with supportive care. I will have Gastroenterology look at him with his ongoing abdominal complaints. 12. He is being followed currently by just about every specialty. Deconditioning is a huge factor and added in to all of his medical problems. We will continue to follow. Job ID: [id number]
[2019-02-07] MEDS: Famotidine 20 MG TAB PO SCH (09:50)
[2019-02-07] MEDS: Tamsulosin HCl 0.4 MG CAP PO SCH ×2 (09:50→21:46)
[2019-02-07] MEDS: Donepezil HCl 5 MG TAB PO SCH (09:51)
[2019-02-07] MEDS: HYDROcodone/Acetaminophen 7.5/325 mg Tablet PO PRN ×2 (11:49→21:45)
--- NOTE | 2019-02-07 16:26 | CON ---
DATE OF CONSULTATION: 02/07/2019 CHIEF COMPLAINT: Abdominal pain. HISTORY OF PRESENT ILLNESS: Mr. Rowland was admitted to the hospital on 01/31/2019. For several days prior to that, his primary complaint was constipation. He took some MiraLAX without help and then a couple of days later, took some more MiraLAX without help and then on the morning of admission, he took a couple of Dulcolax tablets. Later that day, he developed 2 episodes of large volume diarrhea with incontinence. After the second large volume diarrhea episode, he passed out. He then came on to the emergency room for further care. He was found to have nephrolithiasis, hydronephrosis, and sepsis. He underwent ureteral stent placement and was treated with antibiotics. He had acute renal failure and required placement of a dialysis catheter. Over the course of his hospital stay, he has been evaluated by Cardiology for atrial fibrillation and Pulmonology Critical Care. He has been seen by Hematology/Oncology due to history of chronic lymphocytic leukemia. Today, he complains of abdominal pain. He has had some abdominal distention. He did have 2 loose to liquidy stools today, 3 yesterday, and 1 the day before that. He has had no nausea or vomiting. No blood in the stool. He reports upper and lower endoscopy were performed by Dr. Seth several months ago with polyps removed from his colon, but has no major pathology. PAST MEDICAL HISTORY: 1. Chronic lymphocytic leukemia. 2. Hypertension. 3. Kidney stones. 4. Congestive heart failure. 5. Atrial fibrillation. 6. AICD. 7. Prostate cancer. 8. Diabetes. 9. Hyperlipidemia. 10. Parkinson disease. 11. Horseshoe kidney. 12. Recurrent UTIs. PAST SURGICAL HISTORY: 1. Cholecystectomy. 2. Heart surgery as an . 3. Tonsillectomy. 4. Eye surgery. 5. Endoscopy. FAMILY HISTORY: Negative for GI malignancies. SOCIAL HISTORY: No alcohol, tobacco, or drugs. ALLERGIES: NO KNOWN DRUG ALLERGIES. MEDICATIONS: 1. Carbidopa-levodopa. 2. Pepcid. 3. Donepezil. 4. Hyoscyamine. 5. Meropenem. 6. Sertraline. 7. Tamsulosin. At home, he is on Eliquis prior to admission. REVIEW OF SYSTEMS: Negative x10 systems reviewed, except as stated in the history of present illness. PHYSICAL EXAMINATION: VITAL SIGNS: Temperature 98.0, blood pressure 90/44 to 107/42, pulse 96. GENERAL: He is in no acute distress. He is alert and oriented. HEENT: His eyes have no scleral icterus. Oropharynx is clear without lesions. No cervical or supraclavicular lymphadenopathy. LUNGS: Clear to auscultation bilaterally. HEART: Regular rate and rhythm without murmur. ABDOMEN: Soft; diffusely tender, more so on the right side. Bowel sounds are present. EXTREMITIES: 1+ lower extremity edema. RECTAL: Reveals no impaction in the rectal vault. He has brown stool. LABORATORY DATA: White blood cell count 14.9, hemoglobin 7.3, platelets 323. Creatinine 3.62, down from 6.25; BUN 49; bilirubin 0.6; AST 19; ALT 13; alkaline phosphatase 122; lipase 129; albumin 3.5. IMPRESSION: 1. Right-sided abdominal tenderness and diffused abdominal pain. He was constipated for several days prior to admission and then had diarrhea after taking multiple antibiotics. Combined with his sepsis and hypotension, he could have had ischemic colitis contributing to his abdominal pain. At this point, he is having some mild ongoing diarrhea, but no blood in the stool. Treatment either way would be supportive with IV fluids. We will rule out C diff. He does not have an impaction by digital exam now. 2. He does have right-sided kidney stones, had a stent placed and some of his tenderness might be related to that as well. 3. Sevfe-yc-fmuthht renal insufficiency. 4. Anemia without overt bleeding may be related to his renal failure. 5. Chronic lymphocytic leukemia. RECOMMENDATIONS: 1. Send stool for C diff. 2. Advance his diet as he tolerates. He is on clear liquids for now. 3. IV fluids and supportive care. Job ID: [id number]
--- NOTE | 2019-02-07 17:36 | PRG ---
DATE OF SERVICE: 02/07/2019 SUBJECTIVE: An 88-year-old gentleman being seen for acute kidney injury. The patient denied nausea, vomiting, or chest pain. OBJECTIVE: GENERAL: The patient is awake and alert. VITAL SIGNS: Febrile. Pulse 96, breathing 16, blood pressure 107/42. GENERAL APPEARANCE AND MENTAL STATUS: Fair. HEAD/NECK: Normocephalic. Atraumatic. EYES: EOMI. No deformity. EARS: Clear. No ulcers. NOSE: Intact. No lesions. MOUTH: Clear. No discharge. THROAT: Clear. No exudate. LUNGS: Clear. No crackles. CARDIAC: S1, S2. No rub. ABDOMEN: Benign. Bowel sounds positive. GENITALIA/RECTUM: Benavides absent. BACK/EXTREMITIES: Edema 0+. NEUROLOGICAL: Alert and motor intact. SKIN: LYMPHATICS: LABORATORY DATA: Hemoglobin 7.3. Creatinine is 3.6. ASSESSMENT AND PLAN: 1. Acute kidney injury with chronic kidney disease stage 5. Offered dialysis, the patient and his spouse declined. 2. Hypertension, stable. 3. Anemia, stable. 4. Medication based on GFR appropriate. 5. Hypokalemia. Recommend high potassium diet. Job ID: [id number]
--- NOTE | 2019-02-07 19:13 | PDOC.HOSPP ---
- Subjective Subjective: Doing ok. Sitting up a bit for the first time. Has some generalized abd discomfort. GI had just seen him. - Objective Vital Signs & Weight: Vital Signs (12 hours) Temp Pulse Ox 02/07/19 16:00 99.1 F 02/07/19 12:00 98.0 F 02/07/19 08:00 96 Weight Admit Weight 221 lb 12.56 oz Weight 223 lb 1.725 oz Most Recent Monitor Data Heart Rate from ECG 84 NIBP 97/48 NIBP BP-Mean 64 Respiration from ECG 19 SpO2 97 I&O: 02/06/19 02/07/19 02/08/19 06:59 06:59 06:59 Intake Total 1823 1455.3 832 Output Total 610 1420 330 Balance 1213 35.3 502 Result Diagrams: 02/07/19 03:50 02/07/19 03:50 ROS - Medication Medications: Active Medications Generic Name Dose Route Start Last Admin Trade Name Freq PRN Reason Stop Dose Admin Acetaminophen 650 mg 01/31/19 04:25 02/06/19 11:49 Tylenol PO 650 mg Q4H PRN Administration Headache/Fever/Mild Pain (1-3) Hydrocodone Bitart/Acetaminophen 1 tab 02/06/19 16:27 02/07/19 11:49 [place] 7.5/325 PO 1 tab Q6H PRN Administration Pain Carbidopa/Levodopa 1 tab 02/06/19 14:00 02/07/19 13:50 Sinemet 25-100 PER TUBE 1 tab Q8HR BERNARDINO Administration Donepezil HCl 5 mg 02/01/19 09:00 02/07/19 09:51 Aricept PO 5 mg DAILY BERNARDINO Administration Famotidine 20 mg 02/06/19 09:00 02/07/19 09:50 Pepcid PO 20 mg DAILY BERNARDINO Administration Hyoscyamine Sulfate 0.25 mg 01/31/19 18:00 02/07/19 18:53 Levsin Sl SL 0.25 mg Q6HR BERNARDINO Administration Norepinephrine Bitartrate 8 mg 250 mls @ 0 mls/hr 01/31/19 06:15 02/05/19 23: 05 / Dextrose/Water IVPB 250 mls INF PRN Administration TO MAINTAIN MAP > 65 Protocol As Directed Meropenem 500 mg/ Sodium 100 mls @ 200 mls/hr 02/03/19 12:00 02/07/19 11:30 Chloride IVPB 100 mls 0000,1200 BERNARDINO Administration Morphine Sulfate 2 mg 02/01/19 18:27 02/07/19 12:54 Morphine SLOW IVP 2 mg Q2H PRN Administration Pain Sertraline HCl 50 mg 02/01/19 09:00 02/07/19 09:50 Zoloft PO 50 mg DAILY BERNARDINO Administration Tamsulosin HCl 0.4 mg 01/31/19 21:00 02/07/19 09:50 Flomax PO 0.4 mg BID BERNARDINO Administration - Exam NAD, awake alert Heart: RRR (Frequent ectopy.) Gastrointestinal: soft, distended Gastrointestinal - other findings: Diffuse TTP and hyperresonance. Skin: normal turgor Neurological: CN's grossly intact Psychiatric: normal affect, normal behavior Hosp A/P (1) Septic shock Code(s): A41.9 - SEPSIS, UNSPECIFIED ORGANISM; R65.21 - SEVERE SEPSIS WITH SEPTIC SHOCK Status: Resolved (2) Hydroureter Code(s): N13.4 - HYDROURETER Status: Acute (3) Ureterolithiasis Code(s): N20.1 - CALCULUS OF URETER Status: Acute (4) Hematuria Code(s): R31.9 - HEMATURIA, UNSPECIFIED Status: Acute (5) Abdominal pain Code(s): R10.9 - UNSPECIFIED ABDOMINAL PAIN Status: Acute Qualifiers: (6) Acute on chronic renal failure Code(s): N17.9 - ACUTE KIDNEY FAILURE, UNSPECIFIED; N18.9 - CHRONIC KIDNEY DISEASE, UNSPECIFIED Status: Acute Qualifiers: Acute renal failure type: with other specified pathological lesion Chronic kidney disease stage: stage 3 (moderate) Qualified Code(s): N17.8 - Other acute kidney failure; N18.3 - Chronic kidney disease, stage 3 (moderate) (7) Nephrolithiasis Status: Acute (8) CLL (chronic lymphocytic leukemia) Code(s): C91.90 - LYMPHOID LEUKEMIA, UNSPECIFIED NOT HAVING ACHIEVED REMISSION Status: Chronic (9) Chronic systolic congestive heart failure, NYHA class 3 Code(s): I50.22 - CHRONIC SYSTOLIC (CONGESTIVE) HEART FAILURE Status: Chronic (10) Coronary artery disease Code(s): I25.10 - ATHSCL HEART DISEASE OF [place] CORONARY ARTERY W/O ANG PCTRS Status: Chronic Qualifiers: Coronary Disease-Associated Artery/Lesion type: [place] artery [place] vs. transplanted heart: [place] heart Associated angina: without angina Qualified Code(s): I25.10 - Atherosclerotic heart disease of [place] coronary artery without angina pectoris (11) H/O prostate cancer Code(s): Z85.46 - PERSONAL HISTORY OF MALIGNANT NEOPLASM OF PROSTATE Status: Chronic (12) HTN (hypertension) Code(s): I10 - ESSENTIAL (PRIMARY) HYPERTENSION Status: Chronic Qualifiers: Hypertension type: essential hypertension Qualified Code(s): I10 - Essential (primary) hypertension (13) Ischemic cardiomyopathy Code(s): I25.5 - ISCHEMIC CARDIOMYOPATHY Status: Chronic (14) Parkinson disease Code(s): G20 - PARKINSON'S DISEASE Status: Chronic (15) Physical deconditioning Code(s): R53.81 - OTHER MALAISE Status: Chronic (16) UTI (urinary tract infection) Status: Acute Qualifiers: Urinary tract infection type: acute cystitis Hematuria presence: without hematuria Qualified Code(s): N30.00 - Acute cystitis without hematuria - Plan Numerous questions from the patient, his and son answered. Had stent placed with resolution of hydroureter. Deferring dialysis today. Still making some urine. Suspect he has an ileus that looked to be early on admission CT. Has good bowel sounds. Gaseous distension. C diff pending. Off pressors. Advance to renal diet. Team includes ID, Onc, Pulmonay/CC, Urology, Nephrology, Cardiology, Surgery and Palliatie Care.
[2019-02-08] MEDS: Hyoscyamine Sulfate SL 0.125 mg Tablet SL SCH ×4 (00:22→18:27)
[2019-02-08] MEDS: Meropenem 500 MG in Sodium Chloride 0.9% 100 ML IVPB SCH ×2 (00:23→11:45)
[2019-02-08] MEDS: HYDROcodone/Acetaminophen 7.5/325 mg Tablet PO PRN ×3 (03:19→21:20)
[2019-02-08 03:49] LABS: #Basophils 0.3 thou/uL (0.0-0.2); #Eosinphils 0.4 thou/uL (0.0-0.7); #Monocytes 0.9 thou/uL (0.11-0.59); #Neutrophils 8.8 thou/uL (1.40-6.50); %Basophils 2.1 % (0.0-1.0); %Eosinophils 2.8 % (0.0-10.0); %Lymphocytes 22.7 % (21.0-51.0); %Monocytes 6.8 % (0.0-10.0); %Neutrophils 65.5 % (42.0-75.0); Hemoglobin 9.2 g/dL (14.0-18.0); Mean Corpuscular HGB CONC 33.6 g/dL (32.0-36.0); Mean Corpuscular Hemoglobin 32.3 pg (27.0-31.0); Mean Corpuscular Volume 96.2 fL (78.0-98.0); Platelet Count 303 thou/uL (130-400); RBC Distribution Width 13.7 % (11.5-14.5); Red Blood Cell (RBC) Count 2.86 mill/uL (4.70-6.10); White Blood Cell (WBC) Count 13.4 thou/uL (4.8-10.8)
[2019-02-08 04:11] LABS: Anion Gap 16 mmol/L (10-20); BUN (Urea Nitrogen) 60 mg/dL (8.4-25.7); Calc. Creatinine Clearance 20 mL/min (70-130); Calcium 9.1 mg/dL (7.8-10.44); Carbon Dioxide 25 mmol/L (23-31); Chloride 103 mmol/L (98-107); Estimated GFR-MDRD 15; Glucose 117 mg/dL (83-110); Potassium 3.5 mmol/L (3.5-5.1); Sodium 140 mmol/L (136-145)
[2019-02-08] MEDS: Carbidopa/Levodopa 25-100 mg Tablet PER TUBE SCH ×3 (05:42→20:58)
[2019-02-08] MEDS: Donepezil HCl 5 MG TAB PO SCH (09:20)
[2019-02-08] MEDS: Famotidine 20 MG TAB PO SCH (09:24)
[2019-02-08] MEDS: Tamsulosin HCl 0.4 MG CAP PO SCH ×2 (09:25→20:58)
[2019-02-08] MEDS: Morphine 4 MG/ML VIAL SLOW IVP PRN ×2 (10:14→12:30)
--- NOTE | 2019-02-08 10:59 | PRG ---
DATE OF SERVICE: 02/08/2019 SUBJECTIVE: An 88-year-old gentleman being seen for acute kidney injury, which is dialysis dependent. The patient does not make much urine and remains hypertensive throughout the day. He is off Levophed. The patient at this time is not interested in dialysis. OBJECTIVE: CONSTITUTIONAL: The patient is awake and alert. VITAL SIGNS: Afebrile, pulse 98, breathing 16, blood pressure 88/50. GENERAL APPEARANCE AND MENTAL STATUS: Fair. HEAD/NECK: Normocephalic. Atraumatic. EYES: EOMI. No deformity. EARS: Clear. No ulcers. NOSE: Intact. No lesions. MOUTH: Clear. No discharge. THROAT: Clear. No exudate. LUNGS: Clear. No crackles. CARDIAC: S1, S2. No rub. ABDOMEN: Benign. Bowel sounds positive. GENITALIA/RECTUM: Benavides absent. BACK/EXTREMITIES: Edema 0+. NEUROLOGICAL: Alert and motor intact. SKIN: LYMPHATICS: LABORATORY DATA: Labs show hemoglobin 9.2. Potassium is 3.5. ASSESSMENT AND PLAN: 1. Chronic kidney disease, stage 5. Discussed risks versus benefits of dialysis. The patient has declined. 2. Anemia, stable. 3. Hyperkalemia, stable. 4. Medication based on GFR appropriate. Job ID: [id number]
--- NOTE | 2019-02-08 11:16 | PRG ---
DATE OF SERVICE: 02/08/2019 SUBJECTIVE: Mr. Rowland reports his abdominal pain has significantly improved today. He is tolerating a solid diet. He had a couple of mushy bowel movements yesterday. OBJECTIVE: VITAL SIGNS: Blood pressure 93/52, pulse 107, temperature 97.8. GENERAL: He is in no acute distress. Awake and alert. LUNGS: Clear to auscultation bilaterally. HEART: Tachycardic, S1 and S2. ABDOMEN: Soft. Mild tenderness in the upper abdomen without guarding. Bowel sounds are present. EXTREMITIES: 1+ lower extremity edema. LABORATORY DATA: White blood cell count 13.4, hemoglobin 9.2, platelets 303. Creatinine 3.77. IMPRESSION: 1. Abdominal pain, more right-sided. He started with constipation for several days and then developed diarrhea after taking multiple laxatives. He was then admitted with sepsis and hypotension. I suspect he had mild ischemic colitis as a cause for his abdominal pain that is now improving. He had a couple of mushy stools yesterday and these were Clostridium difficile negative. 2. Chronic lymphocytic leukemia. 3. Sepsis and renal failure. RECOMMENDATIONS: Primary treatment from a GI standpoint is just supportive care now with fluids and antibiotics. His dialysis was held today due to low blood pressure. I will sign off for now. Please call if GI can be of assistance. Job ID: [id number]
--- NOTE | 2019-02-08 12:16 | EKG ---
Test Reason : Blood Pressure : / mmHG Vent. Rate : 074 BPM Atrial Rate : 258 BPM P-R Int : 000 ms QRS Dur : 138 ms QT Int : 450 ms P-R-T Axes : 000 -39 047 degrees QTc Int : 499 ms AV sequential or dual chamber electronic pacemaker Confirmed by MADDI CHONG ([id number]), web editor PATRICIA EVANS ([id number]) on 02/08/2019 12:15:26 PM Referred By: Confirmed By:MADDI CHONG
--- NOTE | 2019-02-08 12:51 | PRG ---
DATE OF SERVICE: 02/08/2019 SERVICE: Pulmonary Medicine. INTERVAL HISTORY: The patient is doing fine from a respiratory standpoint. He is breathing comfortably. That being said, he had significant abdominal discomfort. Any time he takes any p.o., he has severe pain that lasts for several hours. Yesterday, he had 2 to 3 mushy stools, which were moderate in size. There was no evidence of an infection in them. This was likely secondary to multiple laxatives that he previously received. Otherwise, there has been no interval change to his condition. PHYSICAL EXAMINATION: VITAL SIGNS: Afebrile, pulse 107, blood pressure 93/52, respirations 21, and saturation 94% on room air. GENERAL: The patient is awake and alert, in no apparent distress. LUNGS: Good air entry. Dependent crackles are minimal. No prolonged expiratory phase or wheezing is present. HEART: Normal rate. Irregular. ABDOMEN: Distended. Bowel sounds are present. He has tenderness to palpation throughout with no rebound or guarding. : Benavides catheter in place. NEUROLOGIC: Grossly nonfocal. MUSCULOSKELETAL: No cyanosis or clubbing. There is diffuse 2+ to 3+ pitting throughout. LABORATORY DATA: WBC 13.4, hemoglobin 9.2, and platelets 303,000. Creatinine 3.77 and roughly stable and BUN 60 and gently up-trending. Urinalysis; multiple red blood cells, several white blood cells. There is 3+ bacteria present. Large amounts of blood prevented us from interpreting nitrites or leukocyte esterase. Blood cultures x2, Clostridium difficile antigen and toxin, and urine culture are all unremarkable. ASSESSMENT: 1. Septic shock, resolved. 2. Nephrolithiasis, status post cystoscopy and stent placement. 3. Prostate cancer. 4. Chronic lymphocytic leukemia. 5. Atrial fibrillation, permanent. 6. Chronic systolic heart failure. 7. Acute kidney injury (versus chronic kidney disease). 8. Abdominal discomfort, suspect intestinal angina. DISCUSSION AND PLAN: The patient will remain in the ICU with supportive care. We will try to minimize fluids through time. Hopefully, his urine output will start to citrus picker and it will clear what I feel may be an acute on chronic kidney disease. Pulmonary/Critical Care will follow along while the patient remains in the ICU. Because of his multiple comorbidities, advanced age, and relative debility at baseline, I do think that the patient is going to have a very difficult time getting over this hospital stay. Supportive measures, however, will be continued. Job ID: [id number]
--- NOTE | 2019-02-08 14:00 | PRG ---
DATE OF SERVICE: 02/08/2019 SUBJECTIVE: The patient states that he is still having abdominal pain. He denies any significant bladder or penile pain. He is not complaining of any flank or back pain. Otherwise, not very conversant, not really answering questions very appropriately. OBJECTIVE: VITAL SIGNS: Temperature 98.2, pulse 93, blood pressure 120/57, and saturations 95% with respiration rate of 25. GENERAL: No apparent distress, not really answering questions appropriately, but not confused or delirious. CHEST: No increased work of breathing. CARDIOVASCULAR: Regular rate and rhythm. ABDOMEN: Protuberant, somewhat tender to palpation in the upper quadrants. : Benavides catheter in place with megan-colored urine. DIAGNOSTIC STUDIES: LABORATORY RESULTS: White count 13.4, hemoglobin 9.2. Creatinine 3.77. 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 He appears to be stable from a urologic standpoint. I would continue the catheter for the current time. The patient is currently having his dialysis held today secondary to hypotension, which I will defer decision on that to his film developer. The patient's hemoglobin is 9.2 currently. There is no evidence of ongoing bleeding at the current time, but his hemoglobin should continue to be checked serially to ensure that he does not continue to bleed more or have a problem with erythrogenesis secondary to his renal failure currently. No further management options from a urologic standpoint other than continued monitoring. We will continue to follow until Dr. Howard Hinson resumes care on Sunday. Job ID: [id number] [facility]
--- NOTE | 2019-02-08 16:29 | PDOC.HOSPP ---
- Subjective Encounter Date: 02/08/19 Encounter Time: 16:14 Subjective: Still having some intermittent crampy GI discomfort. He says he does not recall the conversation with Dr. Helton regarding dialysis. Son is at the bedside today as well. - Objective Vital Signs & Weight: Vital Signs (12 hours) Temp Pulse Ox 02/08/19 12:00 98.2 F 02/08/19 08:00 96 02/08/19 07:00 97.8 F Weight Admit Weight 221 lb 12.56 oz Weight 226 lb 3.108 oz Most Recent Monitor Data Heart Rate from ECG 90 NIBP 85/58 NIBP BP-Mean 67 Respiration from ECG 19 SpO2 92 I&O: 02/07/19 02/08/19 02/09/19 06:59 06:59 06:59 Intake Total 1455.3 1072 310 Output Total 1420 595 180 Balance 35.3 477 130 Result Diagrams: 02/08/19 03:30 02/08/19 03:30 ROS - Medication Medications: Active Medications Generic Name Dose Route Start Last Admin Trade Name Freq PRN Reason Stop Dose Admin Acetaminophen 650 mg 01/31/19 04:25 02/06/19 11:49 Tylenol PO 650 mg Q4H PRN Administration Headache/Fever/Mild Pain (1-3) Hydrocodone Bitart/Acetaminophen 1 tab 02/06/19 16:27 02/08/19 14:14 [place] 7.5/325 PO 1 tab Q6H PRN Administration Pain Carbidopa/Levodopa 1 tab 02/06/19 14:00 02/08/19 13:45 Sinemet 25-100 PER TUBE 1 tab Q8HR BERNARDINO Administration Donepezil HCl 5 mg 02/01/19 09:00 02/08/19 09:20 Aricept PO 5 mg DAILY BERNARDINO Administration Famotidine 20 mg 02/06/19 09:00 02/08/19 09:24 Pepcid PO 20 mg DAILY BERNARDINO Administration Hyoscyamine Sulfate 0.25 mg 01/31/19 18:00 02/08/19 12:44 Levsin Sl SL 0.25 mg Q6HR BERNARDINO Administration Norepinephrine Bitartrate 8 mg 250 mls @ 0 mls/hr 01/31/19 06:15 02/05/19 23: 05 / Dextrose/Water IVPB 250 mls INF PRN Administration TO MAINTAIN MAP > 65 Protocol As Directed Meropenem 500 mg/ Sodium 100 mls @ 200 mls/hr 02/03/19 12:00 02/08/19 11:45 Chloride IVPB 100 mls 0000,1200 BERNARDINO Administration Morphine Sulfate 2 mg 02/01/19 18:27 02/08/19 12:30 Morphine SLOW IVP 2 mg Q2H PRN Administration Pain Sertraline HCl 50 mg 02/01/19 09:00 02/08/19 09:25 Zoloft PO 50 mg DAILY BERNARDINO Administration Tamsulosin HCl 0.4 mg 01/31/19 21:00 02/08/19 09:25 Flomax PO 0.4 mg BID BERNARDINO Administration - Exam NAD, awake alert Heart: RRR, II/IV Heart - other findings: Frequent ectopy. Respiratory: no wheezes, no rales Respiratory - other findings: Diminished at bases. Gastrointestinal: soft, distended Gastrointestinal - other findings: hyperresonant. Extremeties - other findings: UE edema improved. LE edema worse. Skin: normal turgor Musculoskeletal: generalized weakness Psychiatric: normal affect, normal behavior, somnolent Hosp A/P (1) Septic shock Code(s): A41.9 - SEPSIS, UNSPECIFIED ORGANISM; R65.21 - SEVERE SEPSIS WITH SEPTIC SHOCK Status: Resolved (2) Hydroureter Code(s): N13.4 - HYDROURETER Status: Resolved (3) Ureterolithiasis Code(s): N20.1 - CALCULUS OF URETER Status: Acute (4) Hematuria Code(s): R31.9 - HEMATURIA, UNSPECIFIED Status: Acute (5) Abdominal pain Code(s): R10.9 - UNSPECIFIED ABDOMINAL PAIN Status: Acute Qualifiers: (6) Acute on chronic renal failure Code(s): N17.9 - ACUTE KIDNEY FAILURE, UNSPECIFIED; N18.9 - CHRONIC KIDNEY DISEASE, UNSPECIFIED Status: Acute Qualifiers: Acute renal failure type: with other specified pathological lesion Chronic kidney disease stage: stage 3 (moderate) Qualified Code(s): N17.8 - Other acute kidney failure; N18.3 - Chronic kidney disease, stage 3 (moderate) (7) Nephrolithiasis Status: Acute (8) CLL (chronic lymphocytic leukemia) Code(s): C91.90 - LYMPHOID LEUKEMIA, UNSPECIFIED NOT HAVING ACHIEVED REMISSION Status: Chronic (9) Chronic systolic congestive heart failure, NYHA class 3 Code(s): I50.22 - CHRONIC SYSTOLIC (CONGESTIVE) HEART FAILURE Status: Chronic (10) Coronary artery disease Code(s): I25.10 - ATHSCL HEART DISEASE OF [place] CORONARY ARTERY W/O ANG PCTRS Status: Chronic Qualifiers: Coronary Disease-Associated Artery/Lesion type: [place] artery [place] vs. transplanted heart: [place] heart Associated angina: without angina Qualified Code(s): I25.10 - Atherosclerotic heart disease of [place] coronary artery without angina pectoris (11) H/O prostate cancer Code(s): Z85.46 - PERSONAL HISTORY OF MALIGNANT NEOPLASM OF PROSTATE Status: Chronic (12) HTN (hypertension) Code(s): I10 - ESSENTIAL (PRIMARY) HYPERTENSION Status: Chronic Qualifiers: Hypertension type: essential hypertension Qualified Code(s): I10 - Essential (primary) hypertension (13) Ischemic cardiomyopathy Code(s): I25.5 - ISCHEMIC CARDIOMYOPATHY Status: Chronic (14) Parkinson disease Code(s): G20 - PARKINSON'S DISEASE Status: Chronic (15) Physical deconditioning Code(s): R53.81 - OTHER [place]AISE Status: Chronic (16) UTI (urinary tract infection) Status: Acute Qualifiers: Urinary tract infection type: acute cystitis Hematuria presence: without hematuria Qualified Code(s): N30.00 - Acute cystitis without hematuria - Plan Numerous questions from the patient, and son answered. Had stent placed with resolution of hydroureter. Deferring dialysis today. Dr. Helton indicated in his note patient is declining dialysis. Patient says he does not recall the conversation. I encouraged the patient and his son to consider HD tomorrow if that is the recommendation for nephrology. Still making some urine. Concern for ischemic gut given the initial hypotension. Has good bowel sounds. Gaseous distension. C diff negative. Off pressors. BP labile, but better overall. Advance to renal diet. Team includes ID, Onc, Pulmonay/CC, Urology, Nephrology, Cardiology, Surgery and Palliatie Care.
[2019-02-09] MEDS: Hyoscyamine Sulfate SL 0.125 mg Tablet SL SCH ×5 (00:02→23:51)
[2019-02-09] MEDS: Meropenem 500 MG in Sodium Chloride 0.9% 100 ML IVPB SCH ×3 (00:02→23:50)
[2019-02-09] MEDS: Morphine 4 MG/ML VIAL SLOW IVP PRN (00:45)
[2019-02-09] MEDS: HYDROcodone/Acetaminophen 7.5/325 mg Tablet PO PRN (02:56)
[2019-02-09 05:17] LABS: #Basophils 0.1 thou/uL (0.0-0.2); #Eosinphils 0.6 thou/uL (0.0-0.7); #Lymphocytes 2.6 thou/uL (1.20-3.40); #Neutrophils 6.4 thou/uL (1.40-6.50); %Basophils 0.8 % (0.0-1.0); %Eosinophils 5.5 % (0.0-10.0); %Lymphocytes 24.6 % (21.0-51.0); %Monocytes 8.9 % (0.0-10.0); %Neutrophils 60.3 % (42.0-75.0); Hemoglobin 8.6 g/dL (14.0-18.0); Mean Corpuscular HGB CONC 33.1 g/dL (32.0-36.0); Mean Corpuscular Hemoglobin 32.1 pg (27.0-31.0); Mean Corpuscular Volume 96.8 fL (78.0-98.0); Mean Platelet Volume 6.8 fL (7.4-10.4); Platelet Count 280 thou/uL (130-400); RBC Distribution Width 13.7 % (11.5-14.5); Red Blood Cell (RBC) Count 2.68 mill/uL (4.70-6.10); White Blood Cell (WBC) Count 10.6 thou/uL (4.8-10.8)
[2019-02-09 05:32] LABS: Phosphorus 5.3 mg/dL (2.3-4.7)
[2019-02-09 05:50] LABS: Anion Gap 13 mmol/L (10-20); BUN (Urea Nitrogen) 64 mg/dL (8.4-25.7); Calc. Creatinine Clearance 21 mL/min (70-130); Calcium 8.4 mg/dL (7.8-10.44); Carbon Dioxide 25 mmol/L (23-31); Chloride 104 mmol/L (98-107); Estimated GFR-MDRD 16; Glucose 90 mg/dL (83-110); Magnesium 2.1 mg/dL (1.6-2.6); Potassium 3.4 mmol/L (3.5-5.1); Sodium 139 mmol/L (136-145)
[2019-02-09] MEDS: Carbidopa/Levodopa 25-100 mg Tablet PER TUBE SCH ×3 (06:18→21:15)
[2019-02-09] MEDS: Tamsulosin HCl 0.4 MG CAP PO SCH ×2 (09:48→21:15)
[2019-02-09] MEDS: Famotidine 20 MG TAB PO SCH (09:49)
[2019-02-09] MEDS: Donepezil HCl 5 MG TAB PO SCH (09:52)
[2019-02-09] MEDS ORDERED: Furosemide 40 MG/4 ML VIAL SLOW IVP SCH (10:00)
--- NOTE | 2019-02-09 10:20 | PRG ---
DATE OF SERVICE: 02/09/2019 SERVICE: Pulmonary Medicine. INTERVAL HISTORY: The patient's blood pressure has firmed up a little bit. He is breathing comfortable. His strength is improving a little bit, although he remains extraordinarily weak. There has been no interval change to his condition otherwise. PHYSICAL EXAMINATION: VITAL SIGNS: Afebrile, pulse 95, blood pressure 99/48, respirations 20, and saturation 97%, currently on room air. GENERAL: The patient is awake and alert, in no apparent distress. LUNGS: Very good air entry. There are minimal dependent crackles present without overt rhonchi or wheezing. HEART: Normal rate and regular. ABDOMEN: Soft, nontender, nondistended. Bowel sounds are positive. MUSCULOSKELETAL: There is no cyanosis or clubbing. Diffuse 1 to 2+ pitting is present throughout. NEUROLOGIC: Grossly nonfocal. LABORATORY DATA: WBC 10.6, hemoglobin 8.6, platelets 280,000. Creatinine 3.64 and roughly stable, potassium 3.4, magnesium 2.1, phosphorus 5.3. Red blood cells and white blood cells are prominent in the urinalysis. Blood cultures x2 and urine culture, however, unremarkable. Clostridium difficile antigen and toxin are negative. ASSESSMENT: 1. Septic shock, resolved. 2. Nephrolithiasis, status post cystoscopy and stent placement. 3. Prostate cancer. 4. Chronic lymphocytic leukemia. 5. Atrial fibrillation, permanent. 6. Chronic systolic heart failure. 7. Acute kidney injury, suspected superimposed on top of chronic kidney disease. 8. Intestinal angina, suspected. DISCUSSION AND PLAN: The patient is doing great from respiratory standpoint. At this point, his blood pressure has firmed up very nicely and is stable for transition out of the ICU. He can go to the [facility] given his increasing nursing requirements. Pulmonary/Critical Care will follow very closely. Job ID: [id number]
[2019-02-09] MEDS ORDERED: Calcium Carbonate 500 MG ChewTAB PO PRN (11:34)
--- NOTE | 2019-02-09 13:31 | PRG ---
DATE OF SERVICE: 02/09/2019 SUBJECTIVE: An 88-year-old gentleman, being seen for acute kidney injury. The patient denies any complaints like nausea, vomiting, or chest pain. OBJECTIVE: CONSTITUTIONAL: The patient is awake and alert. VITAL SIGNS: Pulse 94, breathing 16, blood pressure 110/65. GENERAL APPEARANCE AND MENTAL STATUS: Fair. HEAD/NECK: Normocephalic. Atraumatic. EYES: EOMI. No deformity. EARS: Clear. No ulcers. NOSE: Intact. No lesions. MOUTH: Clear. No discharge. THROAT: Clear. No exudate. LUNGS: Clear. No crackles. CARDIAC: S1, S2. No rub. ABDOMEN: Benign. Bowel sounds positive. GENITALIA/RECTUM: Benavides absent. BACK/EXTREMITIES: Edema 0+. NEUROLOGICAL: Alert and motor intact. SKIN: LYMPHATICS: LABORATORY DATA: Hemoglobin 8.6. Creatinine 3.6. ASSESSMENT AND PLAN: 1. Chronic kidney disease, stage 4, stable. Has improved from stage 5 to stage 4. 2. The patient has multiorgan failure that is now improving. 3. The patient is nonoliguric. No indication for dialysis. Can remove dialysis catheter tomorrow. 4. Hypokalemia. Recommend 20 mEq of potassium. 5. Anemia, stable. 6. Medication based on GFR appropriate. Job ID: [id number]
--- NOTE | 2019-02-09 15:03 | PRG ---
DATE OF SERVICE: 02/09/2019 SUBJECTIVE: The patient continues to have vague GI abdominal discomfort. Otherwise, denies any bladder spasms. No other acute changes. Nursing staff has been flushing his catheter by starting the CBI twice a day. They have not reported any blood clots or significant hematuria in the urine. Urine output remains low, but continues to be produced. OBJECTIVE: VITAL SIGNS: Temperature 98.3, pulse 87, blood pressure 115/87, respirations 17, and saturation 90% on room air. GENERAL: No apparent distress. CARDIOVASCULAR: Regular rate. Irregular rhythm. ABDOMEN: Some vague abdominal discomfort in the upper abdomen. No significant suprapubic tenderness. : Benavides catheter secured with tape with megan colored urine. LABORATORY EVALUATION: Full set of labs are in the [employer] [facility], which I have reviewed. Of note, hemoglobin is 8.6. Creatinine today is 3.64. ASSESSMENT AND PLAN: An 88-year-old white male with presumed urosepsis, status post ureteral stent placement and either calyceal rupture versus perinephric bleed status post again ureteral stent, currently with recovering acute kidney injury. The patient's urine remains relatively clear. I agree with keeping the CBI off. However, if the patient's urine gets little bloody or dark, it would be reasonable to flush the catheter with CBI 1 to 2 times a day to avoid clots or blood from accumulating in the bladder. The patient not really having any reported bladder spasms or problems. Would continue current course and continue medical management per other teams. From Urology standpoint, Dr. Tejada will resume care tomorrow and will make further recommendations as needed. Job ID: [id number]
--- NOTE | 2019-02-09 22:14 | PDOC.HOSPP ---
- Subjective Subjective: Primary concern is still the abdominal distention and bloat. Otherwise ok. - Objective Vital Signs & Weight: Vital Signs (12 hours) Temp 02/09/19 21:09 98.6 F 02/09/19 15:03 97.6 F Weight Admit Weight 221 lb 12.56 oz Weight 226 lb 10.163 oz Most Recent Monitor Data Heart Rate from ECG 92 NIBP 114/71 NIBP BP-Mean 85 Respiration from ECG 18 SpO2 95 I&O: 02/08/19 02/09/19 02/10/19 06:59 06:59 06:59 Intake Total 1072 1070 1180 Output Total 595 730 700 Balance 477 340 480 Result Diagrams: 02/09/19 04:50 02/09/19 04:50 ROS - Medication Medications: Active Medications Generic Name Dose Route Start Last Admin Trade Name Freq PRN Reason Stop Dose Admin Acetaminophen 650 mg 01/31/19 04:25 02/06/19 11:49 Tylenol PO 650 mg Q4H PRN Administration Headache/Fever/Mild Pain (1-3) Hydrocodone Bitart/Acetaminophen 1 tab 02/06/19 16:27 02/09/19 02:56 [place] 7.5/325 PO 1 tab Q6H PRN Administration Pain Calcium Carbonate 1,000 mg 02/09/19 11:34 02/09/19 12:02 Tums PO 1,000 mg Q4H PRN Administration HEART BURN Carbidopa/Levodopa 1 tab 02/06/19 14:00 02/09/19 21:15 Sinemet 25-100 PER TUBE 1 tab Q8HR BERNARDINO Administration Donepezil HCl 5 mg 02/01/19 09:00 02/09/19 09:52 Aricept PO 5 mg DAILY BERNARDINO Administration Famotidine 20 mg 02/06/19 09:00 02/09/19 09:49 Pepcid PO 20 mg DAILY BERNARDINO Administration Hyoscyamine Sulfate 0.25 mg 01/31/19 18:00 02/09/19 17:47 Levsin Sl SL 0.25 mg Q6HR BERNARDINO Administration Norepinephrine Bitartrate 8 mg 250 mls @ 0 mls/hr 01/31/19 06:15 02/05/19 23: 05 / Dextrose/Water IVPB 250 mls INF PRN Administration TO MAINTAIN MAP > 65 Protocol As Directed Meropenem 500 mg/ Sodium 100 mls @ 200 mls/hr 02/03/19 12:00 02/09/19 12:03 Chloride IVPB 100 mls 0000,1200 BERNARDINO Administration Morphine Sulfate 2 mg 02/01/19 18:27 02/09/19 00:45 Morphine SLOW IVP 2 mg Q2H PRN Administration Pain Sertraline HCl 50 mg 02/01/19 09:00 02/09/19 09:48 Zoloft PO 50 mg DAILY BERNARDINO Administration Tamsulosin HCl 0.4 mg 01/31/19 21:00 02/09/19 21:15 Flomax PO 0.4 mg BID BERNARDINO Administration - Exam NAD, awake alert Heart: no murmur, no gallops, irregular Respiratory: CTAB, no wheezes, no rales Respiratory - other findings: diminished at bases. Gastrointestinal: soft Gastrointestinal - other findings: Distented with hyperresonance. Slightly high pitched bowel sounds. Hosp A/P (1) Septic shock Code(s): A41.9 - SEPSIS, UNSPECIFIED ORGANISM; R65.21 - SEVERE SEPSIS WITH SEPTIC SHOCK Status: Resolved (2) Hydroureter Code(s): N13.4 - HYDROURETER Status: Resolved (3) Ureterolithiasis Code(s): N20.1 - CALCULUS OF URETER Status: Acute (4) Hematuria Code(s): R31.9 - HEMATURIA, UNSPECIFIED Status: Acute (5) Abdominal pain Code(s): R10.9 - UNSPECIFIED ABDOMINAL PAIN Status: Acute Qualifiers: (6) Acute on chronic renal failure Code(s): N17.9 - ACUTE KIDNEY FAILURE, UNSPECIFIED; N18.9 - CHRONIC KIDNEY DISEASE, UNSPECIFIED Status: Acute Qualifiers: Acute renal failure type: with other specified pathological lesion Chronic kidney disease stage: stage 3 (moderate) Qualified Code(s): N17.8 - Other acute kidney failure; N18.3 - Chronic kidney disease, stage 3 (moderate) (7) Nephrolithiasis Status: Acute (8) CLL (chronic lymphocytic leukemia) Code(s): C91.90 - LYMPHOID LEUKEMIA, UNSPECIFIED NOT HAVING ACHIEVED REMISSION Status: Chronic (9) Chronic systolic congestive heart failure, NYHA class 3 Code(s): I50.22 - CHRONIC SYSTOLIC (CONGESTIVE) HEART FAILURE Status: Chronic (10) Coronary artery disease Code(s): I25.10 - ATHSCL HEART DISEASE OF [place] CORONARY ARTERY W/O ANG PCTRS Status: Chronic Qualifiers: Coronary Disease-Associated Artery/Lesion type: [place] artery [place] vs. transplanted heart: [place] heart Associated angina: without angina Qualified Code(s): I25.10 - Atherosclerotic heart disease of [place] coronary artery without angina pectoris (11) H/O prostate cancer Code(s): Z85.46 - PERSONAL HISTORY OF MALIGNANT NEOPLASM OF PROSTATE Status: Chronic (12) HTN (hypertension) Code(s): I10 - ESSENTIAL (PRIMARY) HYPERTENSION Status: Chronic Qualifiers: Hypertension type: essential hypertension Qualified Code(s): I10 - Essential (primary) hypertension (13) Ischemic cardiomyopathy Code(s): I25.5 - ISCHEMIC CARDIOMYOPATHY Status: Chronic (14) Parkinson disease Code(s): G20 - PARKINSON'S DISEASE Status: Chronic (15) Physical deconditioning Code(s): R53.81 - OTHER MALAISE Status: Chronic (16) UTI (urinary tract infection) Status: Acute Qualifiers: Urinary tract infection type: acute cystitis Hematuria presence: without hematuria Qualified Code(s): N30.00 - Acute cystitis without hematuria - Plan All questions from the patient, and son answered. Had stent placed with resolution of hydroureter in the setting of possible ruptured calyx or hemorrhage. Creatinine has stabilized. Making urine. Discussed with Dr. Helton. Will recheck tomorrow. If stable, consider DC in the catheter. Concern for ischemic gut given the initial hypotension. Has good bowel sounds. Slightly high pitched. Gaseous distension. C diff negative. Off pressors. BP better overall. Advance to renal diet. Team includes ID, Onc, Pulmonay/CC, Urology, Nephrology, Cardiology, Surgery and Palliatie Care.
[2019-02-10 05:05] LABS: #Basophils 0.1 thou/uL (0.0-0.2); #Eosinphils 0.4 thou/uL (0.0-0.7); #Lymphocytes 2.6 thou/uL (1.20-3.40); #Monocytes 0.9 thou/uL (0.11-0.59); #Neutrophils 5.7 thou/uL (1.40-6.50); %Basophils 1.2 % (0.0-1.0); %Eosinophils 4.5 % (0.0-10.0); %Lymphocytes 26.6 % (21.0-51.0); %Neutrophils 58.7 % (42.0-75.0); Hemoglobin 8.7 g/dL (14.0-18.0); Mean Corpuscular HGB CONC 33.6 g/dL (32.0-36.0); Mean Corpuscular Hemoglobin 32.5 pg (27.0-31.0); Mean Corpuscular Volume 96.9 fL (78.0-98.0); Mean Platelet Volume 6.7 fL (7.4-10.4); Platelet Count 291 thou/uL (130-400); Red Blood Cell (RBC) Count 2.66 mill/uL (4.70-6.10); White Blood Cell (WBC) Count 9.7 thou/uL (4.8-10.8)
[2019-02-10 05:18] LABS: Anion Gap 14 mmol/L (10-20); BUN (Urea Nitrogen) 62 mg/dL (8.4-25.7); Calc. Creatinine Clearance 24 mL/min (70-130); Calcium 8.4 mg/dL (7.8-10.44); Carbon Dioxide 25 mmol/L (23-31); Chloride 105 mmol/L (98-107); Estimated GFR-MDRD 19; Glucose 93 mg/dL (83-110); Potassium 3.3 mmol/L (3.5-5.1); Sodium 141 mmol/L (136-145)
[2019-02-10] MEDS: Carbidopa/Levodopa 25-100 mg Tablet PER TUBE SCH ×3 (06:02→21:36)
[2019-02-10] MEDS: Furosemide 40 MG/4 ML VIAL SLOW IVP SCH (06:02)
[2019-02-10] MEDS: Hyoscyamine Sulfate SL 0.125 mg Tablet SL SCH ×3 (06:06→18:16)
--- NOTE | 2019-02-10 08:47 | PRG ---
DATE OF SERVICE: 02/10/2019 SUBJECTIVE: The patient is alert, awake. Denies chills. Events over the weekend reviewed. The patient off pressors. Dialysis on hold, discontinued. OBJECTIVE: VITAL SIGNS: He is afebrile, blood pressure 116/62. I's and O's 1580 in and 1100 out. He is positive for 180 mL. Admitting weight 219. Current weight is 231. ABDOMEN: Distended, however, soft. Bowel sounds active. : Preputial scrotal edema consistent with anasarca. Benavides catheter secured. Continuous bladder irrigation tubing in place. The patient has flushing p.r.n., twice a day flushing to prevent blood and bladder debris. Urine output has been relatively clear per nursing staff. Urine is yellow in the bag. EXTREMITIES: Bilateral edema. No calf tenderness. LABORATORY DATA: White count 9.7, hemoglobin stable at 8.7, and platelets 291. BUN 62, creatinine 3.15. Over the weekend, creatinine was variable from 3.7 to 3.6. Repeat cultures are negative. IMPRESSION AND PLAN: Mr. Rowland is an 88-year-old male with history of; 1. Horseshoe kidney. 2. Significant bilateral renal stone burden. 3. High-grade obstruction of the right renal moiety, secondary to obstructing ureteral calculi, postop day #10, status post cysto, right retrograde, 6 x 22 double-J ureteral stent. 4. Hematuria, improving, resolving. Continue to flush tubing p.r.n. 5. History of prostate cancer in remission, on Casodex on hold per Med Onc. 6. History of chronic lymphocytic leukemia, followed by Dr. Mccann. 7. History of atrial fibrillation, previously on Eliquis on hold due to subcapsular hematoma, resolving. 8. History of congestive heart failure, ejection fraction of 30%. 9. Renal failure, multifactorial. The patient has received dialysis last week. His creatinine is stable and slowly improving off dialysis; however, he continues to have significant fluid overload, as indicated by his weight. will need to monitor his fluid status closely, may need to repeat hemodialysis if cardio pul compromise p.r.n., which I will leave up to Nephrology. From Urologic perspective, continue present management. will continue indwelling Benavides catheter, Monitor degree of hematuria Continue IV antibiotics per Infectious Disease. . Anticoagulation contraindicated due presenting complaints in presentation of hematuria and subcapsular bleed. Job ID: [id number] MTDD
[2019-02-10] MEDS ORDERED: Clopidogrel Bisulfate 75 MG TAB ONE (10:00)
[2019-02-10] MEDS: Famotidine 20 MG TAB PO SCH (10:12)
[2019-02-10] MEDS: Tamsulosin HCl 0.4 MG CAP PO SCH ×2 (10:14→21:36)
[2019-02-10] MEDS: Donepezil HCl 5 MG TAB PO SCH (10:15)
--- NOTE | 2019-02-10 11:12 | PRG ---
DATE OF SERVICE: 02/10/2019 SUBJECTIVE: Patient was seen and examined at bedside and overnight events noted. Patient denies any shortness of breath or chest pain or palpitation. No history of nausea or vomiting or diarrhea or fever or chills or cramps. OBJECTIVE: GENERAL: This is a well-built male, in no apparent distress. VITAL SIGNS: Temperature 98.0. Heart rate 96. Respiratory rate 18. Blood pressure 110/63. HEENT: Atraumatic, normocephalic. Oral mucosa is moist NECK: Supple. CARDIOVASCULAR: S1, S2 heard. Rate and rhythm regular. RESPIRATORY: Clear to auscultation. GASTROINTESTINAL: Abdomen is soft. MUSCULOSKELETAL: No tenderness. 2+ edema. DERMATOLOGIC: No skin rash. NEUROLOGIC: Alert and awake and oriented X3. No focal neurologic deficits. Moving all the extremities. PSYCHIATRIC: Mood and affect normal. LABORATORY DATA: Potassium 3.3, BUN is 62 from 64, creatinine is 3.1 from 3.66. ASSESSMENT AND PLAN: 1. Chronic kidney disease, stage 4 with recent acute kidney injury. Creatinine is better off dialysis, creatinine down to 3.1. 2. Edema. The patient remains edematous, but not hypoxic. Hopefully, we will have postobstructive diuresis and improvement in his edema. No acute indication for dialysis. We will continue to monitor. Limit fluid intake, if tolerated. 3. Hypokalemia, replace aggressively with cautious monitoring. 4. Anemia. 5. History of hypertension. 6. No acute indication for dialysis. We will continue close monitoring. We will follow. Continue antibiotics. Currently on Lasix and potassium. We will follow. Job ID: [id number]
[2019-02-10] MEDS: Meropenem 500 MG in Sodium Chloride 0.9% 100 ML IVPB SCH (11:49)
--- NOTE | 2019-02-10 13:34 | PRG ---
DATE OF SERVICE: 02/10/2019 SERVICE: Pulmonary Medicine. INTERVAL HISTORY: The patient is doing really well from respiratory standpoint. No complaints of chest discomfort, nausea, or vomiting. He is breathing comfortably. He is surrounding by his family today. His white count continues to go down, and his breathing continues to improve. His strength is better day-by-day as well. PHYSICAL EXAMINATION: VITAL SIGNS: Afebrile. Pulse 78, blood pressure 127/53, respirations 17, and saturation 98% on room air. GENERAL: The patient is awake and alert, in no apparent distress. LUNGS: Decent air entry. Crackles are present dependently. HEART: Normal rate, regular. ABDOMEN: Soft, nontender, and nondistended. Bowel sounds are positive. MUSCULOSKELETAL: No cyanosis or clubbing. Pitting edema is dramatically improving. NEUROLOGIC: Grossly nonfocal. LABORATORY DATA: WBC 9.7, hemoglobin 8.7 and stable, and platelets 291,000. Creatinine 3.15, downtrending; BUN 62, and potassium 3.3. Urinalysis is unremarkable. Blood cultures x2, and C. diff antigen and toxin are negative. ASSESSMENT: 1. Septic shock, resolved. 2. Nephrolithiasis, status post cystoscopy and stent placement. 3. Prostate cancer. 4. Chronic lymphocytic leukemia. 5. Atrial fibrillation, permanent. 6. Chronic systolic heart failure. 7. Acute kidney injury, on chronic kidney disease, improving. 8. Intestinal angina, suspected. DISCUSSION AND PLAN: I will continue our mobilization efforts. At this point, I believe the patient is stable from a respiratory standpoint for transition out of the hospital. We will continue to diurese him gently to euvolemia. I will give him one time dose of potassium today. Pulmonary/Critical Care will continue to follow along, but hopefully, he will be discharged from the hospital soon. Job ID: [id number]
--- NOTE | 2019-02-10 17:29 | PDOC.HOSPP ---
- Subjective Encounter Date: 02/10/19 Encounter Time: 17:27 Subjective: Feels ok. He is continuing to have bowel movements. No abdominal pain today. - Objective Vital Signs & Weight: Vital Signs (12 hours) Temp Pulse Ox 02/10/19 14:54 97.8 F 02/10/19 10:39 98.2 F 02/10/19 07:51 98 02/10/19 07:10 98.0 F Weight Admit Weight 221 lb 12.56 oz Weight 231 lb 14.821 oz Most Recent Monitor Data Heart Rate from ECG 89 NIBP 119/56 NIBP BP-Mean 77 Respiration from ECG 50 SpO2 97 I&O: 02/09/19 02/10/19 02/11/19 06:59 06:59 06:59 Intake Total 1070 1580 Output Total 730 1100 Balance 340 480 Result Diagrams: 02/10/19 04:45 02/10/19 04:45 ROS - Medication Medications: Active Medications Generic Name Dose Route Start Last Admin Trade Name Freq PRN Reason Stop Dose Admin Acetaminophen 650 mg 01/31/19 04:25 02/06/19 11:49 Tylenol PO 650 mg Q4H PRN Administration Headache/Fever/Mild Pain (1-3) Hydrocodone Bitart/Acetaminophen 1 tab 02/06/19 16:27 02/09/19 02:56 [place] 7.5/325 PO 1 tab Q6H PRN Administration Pain Calcium Carbonate 1,000 mg 02/09/19 11:34 02/09/19 12:02 Tums PO 1,000 mg Q4H PRN Administration HEART BURN Carbidopa/Levodopa 1 tab 02/06/19 14:00 02/10/19 14:18 Sinemet 25-100 PER TUBE 1 tab Q8HR BERNARDINO Administration Donepezil HCl 5 mg 02/01/19 09:00 02/10/19 10:15 Aricept PO 5 mg DAILY BERNARDINO Administration Famotidine 20 mg 02/06/19 09:00 02/10/19 10:12 Pepcid PO 20 mg DAILY BERNARDINO Administration Furosemide 40 mg 02/10/19 06:00 02/10/19 06:02 Lasix SLOW IVP 40 mg 0600 BERNARDINO Administration Hyoscyamine Sulfate 0.25 mg 01/31/19 18:00 02/10/19 14:12 Levsin Sl SL 0.25 mg Q6HR BERNARDINO Administration Meropenem 500 mg/ Sodium 100 mls @ 200 mls/hr 02/03/19 12:00 02/10/19 11:49 Chloride IVPB 100 mls 0000,1200 BERNARDINO Administration Sertraline HCl 50 mg 02/01/19 09:00 02/10/19 10:14 Zoloft PO 50 mg DAILY BERNARDINO Administration Tamsulosin HCl 0.4 mg 01/31/19 21:00 02/10/19 10:14 Flomax PO 0.4 mg BID BERNARDINO Administration - Exam NAD, awake alert Heart: RRR, no murmur, no gallops, no rubs, normal peripheral pulses Respiratory: CTAB, no wheezes, no rales, no ronchi, normal chest expansion, no tachypnea, normal percussion Gastrointestinal: soft, non-tender, non-distended, normal bowel sounds, no palpable masses, no hepatomegaly, no splenomegaly, no bruit Extremities: 1+ LE edema Neurological: CN's grossly intact Psychiatric: normal affect, normal behavior, A&O x 3 Hosp A/P (1) Septic shock Code(s): A41.9 - SEPSIS, UNSPECIFIED ORGANISM; R65.21 - SEVERE SEPSIS WITH SEPTIC SHOCK Status: Resolved (2) Hydroureter Code(s): N13.4 - HYDROURETER Status: Resolved (3) Ureterolithiasis Code(s): N20.1 - CALCULUS OF URETER Status: Acute (4) Hematuria Code(s): R31.9 - HEMATURIA, UNSPECIFIED Status: Acute (5) Abdominal pain Code(s): R10.9 - UNSPECIFIED ABDOMINAL PAIN Status: Acute Qualifiers: (6) Acute on chronic renal failure Code(s): N17.9 - ACUTE KIDNEY FAILURE, UNSPECIFIED; N18.9 - CHRONIC KIDNEY DISEASE, UNSPECIFIED Status: Acute Qualifiers: Acute renal failure type: with other specified pathological lesion Chronic kidney disease stage: stage 3 (moderate) Qualified Code(s): N17.8 - Other acute kidney failure; N18.3 - Chronic kidney disease, stage 3 (moderate) (7) Nephrolithiasis Status: Acute (8) CLL (chronic lymphocytic leukemia) Code(s): C91.90 - LYMPHOID LEUKEMIA, UNSPECIFIED NOT HAVING ACHIEVED REMISSION Status: Chronic (9) Chronic systolic congestive heart failure, NYHA class 3 Code(s): I50.22 - CHRONIC SYSTOLIC (CONGESTIVE) HEART FAILURE Status: Chronic (10) Coronary artery disease Code(s): I25.10 - ATHSCL HEART DISEASE OF [place] CORONARY ARTERY W/O ANG PCTRS Status: Chronic Qualifiers: Coronary Disease-Associated Artery/Lesion type: [place] artery [place] vs. transplanted heart: [place] heart Associated angina: without angina Qualified Code(s): I25.10 - Atherosclerotic heart disease of [place] coronary artery without angina pectoris (11) H/O prostate cancer Code(s): Z85.46 - PERSONAL HISTORY OF MALIGNANT NEOPLASM OF PROSTATE Status: Chronic (12) HTN (hypertension) Code(s): I10 - ESSENTIAL (PRIMARY) HYPERTENSION Status: Chronic Qualifiers: Hypertension type: essential hypertension Qualified Code(s): I10 - Essential (primary) hypertension (13) Ischemic cardiomyopathy Code(s): I25.5 - ISCHEMIC CARDIOMYOPATHY Status: Chronic (14) Parkinson disease Code(s): G20 - PARKINSON'S DISEASE Status: Chronic (15) Physical deconditioning Code(s): R53.81 - OTHER MALAISE Status: Chronic (16) UTI (urinary tract infection) Status: Acute Qualifiers: Urinary tract infection type: acute cystitis Hematuria presence: without hematuria Qualified Code(s): N30.00 - Acute cystitis without hematuria - Plan All questions from the patient answered. Had stent placed with resolution of hydroureter in the setting of possible ruptured calyx or hemorrhage. Requiring intermittent irrigation. Creatinine has stabilized and slightly better. Making urine. Hoping [facility] will pick up and delivery driver. Concern for ischemic gut given the initial hypotension. Has good bowel sounds. Gaseous distension improved today. C diff negative. renal diet. Team includes ID, Onc, Pulmonay/CC, Urology, Nephrology, Cardiology, Surgery and Palliatie Care. Will need PT.
[2019-02-11] MEDS: Hyoscyamine Sulfate SL 0.125 mg Tablet SL SCH ×4 (01:01→18:10)
[2019-02-11] MEDS: Meropenem 500 MG in Sodium Chloride 0.9% 100 ML IVPB SCH ×2 (01:02→12:18)
[2019-02-11] MEDS: Furosemide 40 MG/4 ML VIAL SLOW IVP SCH (05:37)
[2019-02-11] MEDS: Carbidopa/Levodopa 25-100 mg Tablet PER TUBE SCH ×3 (05:37→21:59)
[2019-02-11 06:16] LABS: Anion Gap 14 mmol/L (10-20); BUN (Urea Nitrogen) 60 mg/dL (8.4-25.7); Calc. Creatinine Clearance 28 mL/min (70-130); Calcium 8.2 mg/dL (7.8-10.44); Carbon Dioxide 26 mmol/L (23-31); Chloride 105 mmol/L (98-107); Estimated GFR-MDRD 21; Glucose 91 mg/dL (83-110); Potassium 3.6 mmol/L (3.5-5.1); Sodium 141 mmol/L (136-145)
--- NOTE | 2019-02-11 08:02 | PRG ---
DATE OF SERVICE: 02/11/2019 SUBJECTIVE: The patient without complaints. OBJECTIVE: GENERAL: He is alert. VITAL SIGNS: Stable at 97, blood pressure 117/61, off pressors. I's and O's 1700 in, 1025 out. He is positive 670 mL. ABDOMEN: Morbidly obese, protuberant, soft. No rigidity. No rebound. : Preputial and scrotal edema consistent with anasarca. Benavides catheter is secured demonstrating megan concentrated urine. Nursing staff flushing CBI tubing b.i.d.; however, with no significant clots appreciated. PERTINENT LABORATORY DATA: No new CBC. His hemoglobin yesterday was stable at 8.7. BUN 60, creatinine 2.84, previously 3.1, 3.6. Cultures negative thus far. IMPRESSION/PLAN: Mr. Rowland is an 88-year-old male with history of, 1. Horseshoe kidney. 2. History of bilateral renal stone burden. 3. History of high-grade obstruction of the right renal moiety secondary to obstructing ureteral calculi. Postoperative day #11, status post cystoscopy, right retrograde, 6 x 22 stent. 4. Hematuria, improving, near resolved. 5. History of prostate cancer, in remission, previously on Casodex. 6. History of chronic lymphocytic leukemia. 7. Atrial fibrillation. 8. Congestive heart failure, ejection fraction of 30%. 9. Renal failure multifactorial, dialysis on hold as his creatinine is slowly improving with observation. Continue medical management. Continue Benavides catheter, p.r.n. flushing, b.i.d. Continue antibiotics per Infectious Disease. Job ID: [id number] [facility]
--- NOTE | 2019-02-11 09:45 | PRG ---
DATE OF SERVICE: 02/11/2019 SUBJECTIVE: He appears to be doing better. Dialysis is being held because his kidney function has apparently improved. He is still having some mild abdominal pain. OBJECTIVE: VITAL SIGNS: Temperature 97.0, pulse 92, respirations 24, O2 saturation 96%, blood pressure 117/61. HEENT: Unremarkable. NECK: No adenopathy or JVD. CHEST: Clear to auscultation. CARDIAC: S1 and S2. Regular. ABDOMEN: Mild diffuse tenderness. EXTREMITIES: No edema. LABORATORY DATA: Sodium 141, potassium 3.6, chloride 105, CO2 of 26, BUN 60, creatinine 2.8, and glucose 91. ASSESSMENT: 1. Acute renal failure, improving. 2. Status post septic shock and nephrolithiasis. 3. Horseshoe kidney. 4. Chronic lymphocytic leukemia. PLAN: From my point, he can be probably transferred to the floor if okay with Dr. Tejada. Job ID: [id number]
[2019-02-11] MEDS: Famotidine 20 MG TAB PO SCH (10:31)
[2019-02-11] MEDS: Donepezil HCl 5 MG TAB PO SCH (10:31)
[2019-02-11] MEDS: Tamsulosin HCl 0.4 MG CAP PO SCH ×2 (10:31→21:59)
--- NOTE | 2019-02-11 14:52 | PRG ---
DATE OF SERVICE: 02/11/2019 SUBJECTIVE: Patient was seen and examined at bedside and overnight events noted. Patient denies any shortness of breath or chest pain or palpitation. No history of nausea or vomiting or diarrhea or fever or chills or cramps. OBJECTIVE: GENERAL: This is a well built male, in no acute distress. VITAL SIGNS: Temperature 98.4. Heart rate 62. Respiratory rate 21. Blood pressure 117/61. HEENT: Atraumatic, normocephalic. Oral mucosa is moist NECK: Supple. CARDIOVASCULAR: S1, S2 heard. Rate and rhythm regular. RESPIRATORY: Clear to auscultation. GASTROINTESTINAL: Abdomen is soft. MUSCULOSKELETAL: No tenderness. No edema. DERMATOLOGIC: No skin rash. NEUROLOGIC: Alert and awake and oriented X3. No focal neurologic deficits. Moving all the extremities. PSYCHIATRIC: Mood and affect normal. LABORATORY DATA: Potassium 3.6, BUN is 60, creatinine is 2.84. ASSESSMENT AND PLAN: 1. Chronic kidney stage 4 with recent acute kidney injury. Creatinine seems to be getting better. Avoid nephrotoxins and recommend cautious use of diuretics and potassium replacement. 2. Hypokalemia, better. 3. Edema. We will continue close watch and currently, on Lasix and diuresing well. 4. Edema, controlled. 5. History of hypertension. 6. Anemia of chronic disease. 7. Renal function, getting better. Avoid nephrotoxins. Cautious diuresis with close monitoring of labs and electrolytes. We will follow. Job ID: [id number]
[2019-02-11] MEDS: HYDROcodone/Acetaminophen 7.5/325 mg Tablet PO PRN ×2 (15:54→22:00)
--- NOTE | 2019-02-11 17:19 | PRG ---
DATE OF SERVICE: 02/11/2019 SUBJECTIVE: Feeling much better. No abdominal pain. No dyspnea. Voiding without difficulty. OBJECTIVE: VITAL SIGNS: T-max 98.4, blood pressure 106/58, pulse 85, and O2 saturation 93%. GENERAL: Oriented, follows commands. Good recollection. HEENT: Ocular movements conjugate. LUNGS: Clear. HEART: S1 and S2, regular rate. ABDOMEN: Flat and soft, not tender. EXTREMITIES: No edema. LABORATORY DATA: White cell count down to 9.7, hemoglobin 8.7, and platelets 291. Sodium 141; creatinine 2.84, which is markedly improved since peaked at 5.51. ASSESSMENT AND DISCUSSION: Severe nephrolithiasis, recurrent with episodes of urosepsis, chronic lymphocytic leukemia, on Imbruvica and status post another stent for management of obstruction and the right side much improved renal function since the procedure. Cultures have been negative, final results. At this time, we would recommend discontinuation of antimicrobial therapy. Remove a triple-lumen catheter and dialysis catheter as soon as possible. Job ID: [id number] MTDD
[2019-02-12] MEDS: Hyoscyamine Sulfate SL 0.125 mg Tablet SL SCH ×5 (00:27→23:57)
--- NOTE | 2019-02-12 01:05 | PDOC.HOSPP ---
- Subjective Subjective: Having a little more GI discomfort again today. Still having BM's. - Objective Vital Signs & Weight: Vital Signs (12 hours) Temp 02/12/19 00:00 97.9 F 02/11/19 19:29 98.3 F 02/11/19 14:54 98.2 F Weight Admit Weight 221 lb 12.56 oz Weight 226 lb 6.636 oz Most Recent Monitor Data Heart Rate from ECG 90 NIBP 118/60 NIBP BP-Mean 79 Respiration from ECG 22 SpO2 98 I&O: 02/10/19 02/11/19 02/12/19 06:59 06:59 06:59 Intake Total 1580 1700 1020 Output Total 1100 1025 535 Balance 480 675 485 Result Diagrams: 02/10/19 04:45 02/11/19 05:48 ROS - Medication Medications: Active Medications Generic Name Dose Route Start Last Admin Trade Name Freq PRN Reason Stop Dose Admin Acetaminophen 650 mg 01/31/19 04:25 02/06/19 11:49 Tylenol PO 650 mg Q4H PRN Administration Headache/Fever/Mild Pain (1-3) Hydrocodone Bitart/Acetaminophen 1 tab 02/06/19 16:27 02/11/19 22:00 [place] 7.5/325 PO 1 tab Q6H PRN Administration Pain Calcium Carbonate 1,000 mg 02/09/19 11:34 02/09/19 12:02 Tums PO 1,000 mg Q4H PRN Administration HEART BURN Carbidopa/Levodopa 1 tab 02/06/19 14:00 02/11/19 21:59 Sinemet 25-100 PER TUBE 1 tab Q8HR BERNARDINO Administration Donepezil HCl 5 mg 02/01/19 09:00 02/11/19 10:31 Aricept PO 5 mg DAILY BERNARDINO Administration Famotidine 20 mg 02/06/19 09:00 02/11/19 10:31 Pepcid PO 20 mg DAILY BERNARDINO Administration Furosemide 40 mg 02/10/19 06:00 02/11/19 05:37 Lasix SLOW IVP 40 mg 0600 BERNARDINO Administration Hyoscyamine Sulfate 0.25 mg 01/31/19 18:00 02/12/19 00:27 Levsin Sl SL 0.25 mg Q6HR BERNARDINO Administration Sertraline HCl 50 mg 02/01/19 09:00 02/11/19 10:31 Zoloft PO 50 mg DAILY BERNARDINO Administration Tamsulosin HCl 0.4 mg 01/31/19 21:00 02/11/19 21:59 Flomax PO 0.4 mg BID BERNARDINO Administration - Exam NAD, awake alert Heart: no murmur, irregular Respiratory: CTAB, no wheezes, no rales Respiratory - other findings: Diminished at bases. Gastrointestinal: soft, normal bowel sounds Gastrointestinal - other findings: Slightly distended and hypertympanic. Skin: normal turgor Psychiatric: normal affect Hosp A/P (1) Septic shock Code(s): A41.9 - SEPSIS, UNSPECIFIED ORGANISM; R65.21 - SEVERE SEPSIS WITH SEPTIC SHOCK Status: Resolved (2) Hydroureter Code(s): N13.4 - HYDROURETER Status: Resolved (3) Ureterolithiasis Code(s): N20.1 - CALCULUS OF URETER Status: Acute (4) Hematuria Code(s): R31.9 - HEMATURIA, UNSPECIFIED Status: Acute (5) Abdominal pain Code(s): R10.9 - UNSPECIFIED ABDOMINAL PAIN Status: Acute Qualifiers: (6) Acute on chronic renal failure Code(s): N17.9 - ACUTE KIDNEY FAILURE, UNSPECIFIED; N18.9 - CHRONIC KIDNEY DISEASE, UNSPECIFIED Status: Acute Qualifiers: Acute renal failure type: with other specified pathological lesion Chronic kidney disease stage: stage 3 (moderate) Qualified Code(s): N17.8 - Other acute kidney failure; N18.3 - Chronic kidney disease, stage 3 (moderate) (7) Nephrolithiasis Status: Acute (8) CLL (chronic lymphocytic leukemia) Code(s): C91.90 - LYMPHOID LEUKEMIA, UNSPECIFIED NOT HAVING ACHIEVED REMISSION Status: Chronic (9) Chronic systolic congestive heart failure, NYHA class 3 Code(s): I50.22 - CHRONIC SYSTOLIC (CONGESTIVE) HEART FAILURE Status: Chronic (10) Coronary artery disease Code(s): I25.10 - ATHSCL HEART DISEASE OF [place] CORONARY ARTERY W/O ANG PCTRS Status: Chronic Qualifiers: Coronary Disease-Associated Artery/Lesion type: [place] artery [place] vs. transplanted heart: [place] heart Associated angina: without angina Qualified Code(s): I25.10 - Atherosclerotic heart disease of [place] coronary artery without angina pectoris (11) H/O prostate cancer Code(s): Z85.46 - PERSONAL HISTORY OF MALIGNANT NEOPLASM OF PROSTATE Status: Chronic (12) HTN (hypertension) Code(s): I10 - ESSENTIAL (PRIMARY) HYPERTENSION Status: Chronic Qualifiers: Hypertension type: essential hypertension Qualified Code(s): I10 - Essential (primary) hypertension (13) Ischemic cardiomyopathy Code(s): I25.5 - ISCHEMIC CARDIOMYOPATHY Status: Chronic (14) Parkinson disease Code(s): G20 - PARKINSON'S DISEASE Status: Chronic (15) Physical deconditioning Code(s): R53.81 - OTHER MALAISE Status: Chronic (16) UTI (urinary tract infection) Status: Acute Qualifiers: Urinary tract infection type: acute cystitis Hematuria presence: without hematuria Qualified Code(s): N30.00 - Acute cystitis without hematuria - Plan All questions from the patient answered. Had stent placed with resolution of hydroureter in the setting of possible ruptured calyx or hemorrhage. Requiring intermittent irrigation. Creatinine has stabilized and slightly better. Making urine. Hoping UOP will excelsior picker so PRN bladder irrigation can be stopped. Concern for ischemic gut given the initial hypotension. Has good bowel sounds. Gaseous distension waxes and wanes. C diff negative. Renal Diet. Should remove the dialysis catheter. Does not appear that there will be a need for dialysis. Team includes ID, Onc, Pulmonay/CC, Urology, Nephrology, Cardiology, Surgery and Palliatie Care. Will need PT.
[2019-02-12] MEDS: Carbidopa/Levodopa 25-100 mg Tablet PER TUBE SCH ×3 (05:26→21:22)
[2019-02-12] MEDS: Furosemide 40 MG/4 ML VIAL SLOW IVP SCH (05:26)
[2019-02-12 06:14] LABS: Anion Gap 13 mmol/L (10-20); BUN (Urea Nitrogen) 53 mg/dL (8.4-25.7); Calc. Creatinine Clearance 34 mL/min (70-130); Calcium 8.3 mg/dL (7.8-10.44); Carbon Dioxide 25 mmol/L (23-31); Chloride 109 mmol/L (98-107); Estimated GFR-MDRD 27; Glucose 77 mg/dL (83-110); Potassium 3.6 mmol/L (3.5-5.1); Sodium 143 mmol/L (136-145)
--- NOTE | 2019-02-12 08:20 | PRG ---
DATE OF SERVICE: 02/12/2019 OBJECTIVE: GENERAL: The patient is alert and awake, clinically appears to be improving. VITAL SIGNS: Stable. He is afebrile. Blood pressure 112/60. Is and Os 1170 in, 885 out. Urine output, megan. Per nursing staff, urine output occasionally turns red-tinged requiring a flushing. ABDOMEN: Obese, protuberant; however, it is soft. No rigidity. No rebound. : Benavides catheters demonstrating megan, concentrated yellow urine. LABORATORY DATA: No recent CBC. BUN 53, creatinine 2.33, potassium 3.6. IMPRESSION AND PLAN: Mr. Rowland is an 88-year-old male with, 1. Horseshoe kidney. 2. Bilateral renal stone burden. 3. High-grade right ureteral obstruction secondary to multiple ureteral calculi postop day #12 status post cystoscopy, right retrograde, 6 x 22 stent. 4. Hematuria, improving, near resolved. 5. History of prostate cancer, in remission. Previously on Casodex. 6. History of chronic lymphocytic leukemia. 7. Atrial fibrillation, congestive heart failure. 8. Renal failure, slowly improving off hemodialysis. The nursing staff will provide a specimen of urine when it does turn with component of hematuria for my view, if it is not significantly of concern, I will plug a CBI port and leave Benavides catheter to gravity. The patient's clinical status is slowly improving. Antibiotics have been discontinued by Dr. Alfred. We will continue to follow. Elective ureteroscopy when the patient recovers from current events. Eliquis contraindicated due to hematuria and subcapsular bleed. Job ID: [id number]
[2019-02-12] MEDS ORDERED: Saccharomyces boulardii 250 MG CAP PO SCH (09:00)
--- NOTE | 2019-02-12 09:49 | PRG ---
DATE OF SERVICE: 02/12/2019 SUBJECTIVE: Mr. Rowland seems to be doing well. He has continued to get bladder irrigation, which is necessitating him staying in the intermediate care unit. OBJECTIVE: VITAL SIGNS: Temperature 97.9, pulse 92, blood pressure 112/60, and O2 saturation 95%. His intake for the last 24 hours was 1170 and output 885. HEENT: Unremarkable. NECK: No adenopathy or JVD. CHEST: Clear anteriorly. CARDIAC: S1 and S2. Regular without murmur. ABDOMEN: Soft. EXTREMITIES: No edema. LABORATORY DATA: Sodium 143, potassium 3.6, BUN 53, creatinine 2.3, and glucose 77. ASSESSMENT: 1. Acute renal failure - improving. 2. Status post septic shock from nephrolithiasis. 3. Horseshoe kidney. 4. Chronic lymphocytic leukemia. PLAN: He is continuing bladder irrigation. His antibiotics have been stopped. He can be transferred to the floor when his need for bladder irrigation stops. Job ID: [id number]
[2019-02-12] MEDS: Saccharomyces boulardii 250 MG CAP PO SCH (09:55)
[2019-02-12] MEDS: Tamsulosin HCl 0.4 MG CAP PO SCH ×2 (09:55→21:22)
[2019-02-12] MEDS: Famotidine 20 MG TAB PO SCH (09:55)
[2019-02-12] MEDS: Donepezil HCl 5 MG TAB PO SCH (09:56)
--- NOTE | 2019-02-12 13:09 | PDOC.HOSPP ---
- Subjective Encounter Date: 02/12/19 Encounter Time: 12:30 Subjective: Patient seen and examined for Sepsis. No CP/SOB or fever. No new complaints. No overnight events - Objective Vital Signs & Weight: Vital Signs (12 hours) Temp Pulse Pulse BP BP Pulse Ox 02/12/19 11:16 97.2 F L 02/12/19 09:00 67 95 91/56 L 119/83 02/12/19 08:00 99 02/12/19 07:27 96.7 F L 02/12/19 03:46 97.9 F Weight Admit Weight 221 lb 12.56 oz Weight 231 lb 7.766 oz Most Recent Monitor Data Heart Rate from ECG 94 NIBP 120/62 NIBP BP-Mean 81 Respiration from ECG 26 SpO2 99 I&O: 02/11/19 02/12/19 02/13/19 06:59 06:59 06:59 Intake Total 1700 1170 Output Total 1025 885 Balance 675 285 Result Diagrams: 02/10/19 04:45 02/12/19 05:40 EKG Reviewed by me: Yes (Tele SR) ROS - Review of Systems Respiratory: denies: cough, dry, shortness of breath, hemoptysis, SOB with excertion, pleuritic pain, sputum, wheezing, other Cardiovascular: denies: chest pain, palpitations, orthopnea, paroxysmal noc. dyspnea, edema, light headedness, other Gastrointestinal: denies: nausea, vomitting, abdominal pain, diarrhea, constipation, melena, hematochezia, other - Medication Medications: Active Medications Generic Name Dose Route Start Last Admin Trade Name Freq PRN Reason Stop Dose Admin Acetaminophen 650 mg 01/31/19 04:25 02/06/19 11:49 Tylenol PO 650 mg Q4H PRN Administration Headache/Fever/Mild Pain (1-3) Hydrocodone Bitart/Acetaminophen 1 tab 02/06/19 16:27 02/11/19 22:00 [place] 7.5/325 PO 1 tab Q6H PRN Administration Pain Calcium Carbonate 1,000 mg 02/09/19 11:34 02/09/19 12:02 Tums PO 1,000 mg Q4H PRN Administration HEART BURN Carbidopa/Levodopa 1 tab 02/06/19 14:00 02/12/19 05:26 Sinemet 25-100 PER TUBE 1 tab Q8HR BERNARDINO Administration Donepezil HCl 5 mg 02/01/19 09:00 02/12/19 09:56 Aricept PO 5 mg DAILY BERNARDINO Administration Famotidine 20 mg 02/06/19 09:00 02/12/19 09:55 Pepcid PO 20 mg DAILY BERNARDINO Administration Furosemide 40 mg 02/10/19 06:00 02/12/19 05:26 Lasix SLOW IVP 40 mg 0600 BERNARDINO Administration Hyoscyamine Sulfate 0.25 mg 01/31/19 18:00 02/12/19 05:26 Levsin Sl SL 0.25 mg Q6HR BERNARDINO Administration Saccharomyces Boulardii 250 mg 02/12/19 09:00 02/12/19 09:55 Florastor PO 250 mg DAILY BERNARDINO Administration Sertraline HCl 50 mg 02/01/19 09:00 02/12/19 09:55 Zoloft PO 50 mg DAILY BERNARDINO Administration Tamsulosin HCl 0.4 mg 01/31/19 21:00 02/12/19 09:55 Flomax PO 0.4 mg BID BERNARDINO Administration - Exam NAD Neck: supple, no JVD Heart: RRR, no rubs Respiratory: CTAB, no rales Gastrointestinal: soft, non-tender, normal bowel sounds Extremities: 1+ LE edema Hosp A/P (1) UTI (urinary tract infection) Status: Acute Qualifiers: Urinary tract infection type: acute cystitis Hematuria presence: without hematuria Qualified Code(s): N30.00 - Acute cystitis without hematuria (2) Acute on chronic renal failure Code(s): N17.9 - ACUTE KIDNEY FAILURE, UNSPECIFIED; N18.9 - CHRONIC KIDNEY DISEASE, UNSPECIFIED Status: Acute Qualifiers: Acute renal failure type: with other specified pathological lesion Chronic kidney disease stage: stage 3 (moderate) Qualified Code(s): N17.8 - Other acute kidney failure; N18.3 - Chronic kidney disease, stage 3 (moderate) (3) Coronary artery disease Code(s): I25.10 - ATHSCL HEART DISEASE OF [place] CORONARY ARTERY W/O ANG PCTRS Status: Chronic (4) HTN (hypertension) Code(s): I10 - ESSENTIAL (PRIMARY) HYPERTENSION Status: Chronic Qualifiers: Hypertension type: essential hypertension Qualified Code(s): I10 - Essential (primary) hypertension (5) Septic shock Code(s): A41.9 - SEPSIS, UNSPECIFIED ORGANISM; R65.21 - SEVERE SEPSIS WITH SEPTIC SHOCK Status: Resolved (6) CKD (chronic kidney disease) stage 3, GFR 30-59 ml/min Code(s): N18.3 - CHRONIC KIDNEY DISEASE, STAGE 3 (MODERATE) Status: Chronic (7) Other issues per previous notes - Plan PT/OT, DVT proph w/SCDs DC Dialysis catheter Cont other meds as below Atbx dced per ID Bladder irrigation PRN for hematuria Cont PT/OT AM labs Add Nepro TID on IV Lasix
--- NOTE | 2019-02-12 16:08 | PRG ---
DATE OF SERVICE: 02/12/2019 SUBJECTIVE: Patient was seen and examined at bedside and overnight events noted. Patient denies any shortness of breath or chest pain or palpitation. No history of nausea or vomiting or diarrhea or fever or chills or cramps. OBJECTIVE: GENERAL: This is a well-built male, in no apparent distress. VITAL SIGNS: Temperature 97.2. Heart rate 91. Respiratory rate 22. Blood pressure 120/62. HEENT: Atraumatic, normocephalic. Oral mucosa is moist. NECK: Supple. CARDIOVASCULAR: S1, S2 heard. Rate and rhythm regular. RESPIRATORY: Clear to auscultation. GASTROINTESTINAL: Abdomen is soft. MUSCULOSKELETAL: No tenderness. No edema. DERMATOLOGIC: No skin rash. NEUROLOGIC: Alert and awake and oriented x3. No focal neurologic deficits. Moving all the extremities. PSYCHIATRIC: Mood and affect normal. LABORATORY DATA: Potassium is 3.6, BUN is 53, and creatinine is 2.3. ASSESSMENT AND PLAN: 1. Chronic kidney disease, stage 4, getting better. 2. Acute kidney injury, much better. 3. Edema, controlled. Now, hypoxia. 4. Anemia. 5. History of hypertension. Renal function continues to get better. Recommend cautious use of Lasix. Limit fluid intake and we will follow. No acute indication for dialysis. Job ID: [id number]
[2019-02-13] MEDS: Carbidopa/Levodopa 25-100 mg Tablet PER TUBE SCH ×3 (05:49→22:29)
[2019-02-13] MEDS: Hyoscyamine Sulfate SL 0.125 mg Tablet SL SCH ×4 (05:49→22:29)
[2019-02-13] MEDS: Furosemide 40 MG/4 ML VIAL SLOW IVP SCH (05:49)
[2019-02-13 06:09] LABS: #Basophils 0.1 thou/uL (0.0-0.2); #Eosinphils 0.2 thou/uL (0.0-0.7); #Lymphocytes 1.9 thou/uL (1.20-3.40); #Monocytes 0.8 thou/uL (0.11-0.59); #Neutrophils 6.2 thou/uL (1.40-6.50); %Basophils 0.8 % (0.0-1.0); %Eosinophils 2.6 % (0.0-10.0); %Lymphocytes 20.8 % (21.0-51.0); %Monocytes 8.7 % (0.0-10.0); %Neutrophils 67.1 % (42.0-75.0); Hemoglobin 8.6 g/dL (14.0-18.0); Mean Corpuscular HGB CONC 33.2 g/dL (32.0-36.0); Mean Corpuscular Hemoglobin 32.4 pg (27.0-31.0); Mean Corpuscular Volume 97.4 fL (78.0-98.0); Mean Platelet Volume 6.3 fL (7.4-10.4); Platelet Count 302 thou/uL (130-400); RBC Distribution Width 13.9 % (11.5-14.5); Red Blood Cell (RBC) Count 2.66 mill/uL (4.70-6.10); White Blood Cell (WBC) Count 9.3 thou/uL (4.8-10.8)
[2019-02-13 06:30] LABS: Anion Gap 12 mmol/L (10-20); BUN (Urea Nitrogen) 45 mg/dL (8.4-25.7); Calc. Creatinine Clearance 36 mL/min (70-130); Calcium 8.2 mg/dL (7.8-10.44); Carbon Dioxide 27 mmol/L (23-31); Chloride 107 mmol/L (98-107); Estimated GFR-MDRD 29; Glucose 119 mg/dL (83-110); Potassium 3.5 mmol/L (3.5-5.1); Sodium 142 mmol/L (136-145)
--- NOTE | 2019-02-13 08:06 | PRG ---
DATE OF SERVICE: 02/13/2019 SUBJECTIVE: The patient is doing well, he states that he is feeling well with no complaints. OBJECTIVE: VITAL SIGNS: Stable, afebrile. I's and O's 1170 in, 885 out. He is positive 200 mL. ABDOMEN: Morbidly obese, soft. No rigidity. No rebound. : Benavides catheter demonstrating concentrated yellow urine per nursing staff. There was no degree of hematuria over the last 24 hours. PERTINENT LABORATORY DATA: White count is stable at 9.3, hemoglobin 8.6, 302 platelets. BUN 45, creatinine 2.4. IMPRESSION AND PLAN: Mr. Rowland is an 88-year-old male with history of, 1. Horseshoe kidney. 2. Bilateral renal stone burden. 3. History of right high-grade ureteral obstruction secondary to multiple ureteral calculi postoperative day #13, status post cystoscopy, right retrograde, 6 x 22 stent. 4. Hematuria secondary to high-grade obstruction, subcapsular bleed. Hematuria has resolved. Hemoglobin and hematocrit are stable. 5. Chronic lymphocytic leukemia. 6. Atrial fibrillation. 7. Congestive heart failure. 8. Renal failure. Continues to make progress off dialysis. Please remove his triple-lumen femoral catheter, If there are no plans to proceed with hemodialysis. Continue indwelling Benavides catheter for strict Is and Os. His CBI port is plugged this morning. From urologic perspective, the patient can be transitioned to medical or surgical floor. Elective treatment of his ureteral calculi obstructing in few weeks as previously advised. Job ID: [id number] MTDD
--- NOTE | 2019-02-13 08:19 | PRG ---
DATE OF SERVICE: 02/13/2019 SUBJECTIVE: Mr. Rowland is doing well. His bladder irrigation has been stopped. He is anxious to start walk again. OBJECTIVE: VITAL SIGNS: Temperature 98.7, pulse 90, blood pressure 108/50, O2 saturation 100%. Intake for 24 hours 1170, output 885. HEENT: Unremarkable. NECK: No JVD. CHEST: Clear to auscultation. CARDIAC: S1 and S2 regular. ABDOMEN: Soft. EXTREMITIES: No edema. LABORATORY DATA: White blood cell count 9.3, hematocrit 25.9, and platelet count 302. Sodium 142, potassium 3.5, chloride 107, CO2 of 27, BUN 45, creatinine 2.1, glucose 119. ASSESSMENT: 1. Status post septic shock related to nephrolithiasis. 2. Acute renal failure, improving. 3. Horseshoe kidney. 4. Chronic lymphocytic leukemia. PLAN: Since his bladder irrigation has been discontinued, I will go ahead and move him out to the medical floor. We need to focus on physical therapy. He would be a great candidate for rehab given his deconditioning. Job ID: [id number]
[2019-02-13] MEDS: Donepezil HCl 5 MG TAB PO SCH (10:34)
[2019-02-13] MEDS: Saccharomyces boulardii 250 MG CAP PO SCH (10:34)
[2019-02-13] MEDS: Tamsulosin HCl 0.4 MG CAP PO SCH ×2 (10:35→22:30)
[2019-02-13] MEDS: Famotidine 20 MG TAB PO SCH (10:35)
--- NOTE | 2019-02-13 10:58 | PRG ---
DATE OF SERVICE: 02/13/2019 SUBJECTIVE: Patient was seen and examined at bedside and overnight events noted. Patient denies any shortness of breath or chest pain or palpitation. No history of nausea or vomiting or diarrhea or fever or chills or cramps. OBJECTIVE: GENERAL: This is a well-built male, in no apparent distress. VITAL SIGNS: Temperature 97.8. Heart rate 92. Respiratory rate 22. Blood pressure 108/50. HEENT: Atraumatic, normocephalic. Oral mucosa is moist NECK: Supple. CARDIOVASCULAR: S1, S2 heard. Rate and rhythm regular. RESPIRATORY: Clear to auscultation. GASTROINTESTINAL: Abdomen is soft. MUSCULOSKELETAL: No tenderness. No edema. DERMATOLOGIC: No skin rash. NEUROLOGIC: Alert and awake and oriented X3. No focal neurologic deficits. Moving all the extremities. PSYCHIATRIC: Mood and affect normal. LABORATORY DATA: Potassium 3.5, BUN is 45, and creatinine is 2.1. ASSESSMENT AND PLAN: 1. Acute kidney injury on chronic kidney disease stage 4, getting better every day. Avoid nephrotoxins. 2. Acute kidney injury. 3. Edema, controlled. 4. Anemia of chronic disease. 5. History of hypertension. Renal function getting better every day. Monitor renal function closely. Job ID: [id number]
--- NOTE | 2019-02-13 12:15 | PDOC.HOSPP ---
- Subjective Encounter Date: 02/13/19 Encounter Time: 10:15 Subjective: Patient seen and examined. No new complaints. No overnight events - Objective Vital Signs & Weight: Vital Signs (12 hours) Temp BP Pulse Ox 02/13/19 11:17 97.3 F L 02/13/19 07:44 100 02/13/19 07:09 97.8 F 02/13/19 04:00 98.7 F 100/55 L Weight Admit Weight 221 lb 12.56 oz Weight 228 lb 9.91 oz Most Recent Monitor Data Heart Rate from ECG 94 NIBP 123/69 NIBP BP-Mean 87 Respiration from ECG 21 SpO2 98 I&O: 02/12/19 02/13/19 02/14/19 06:59 06:59 06:59 Intake Total 1170 694 Output Total 885 450 Balance 285 244 Result Diagrams: 02/13/19 05:50 02/13/19 05:50 ROS - Review of Systems Constitutional: reports: weakness. denies: fever, chills, sweats, malaise, other ENT: denies: ear pain, ear discharge, nose pain, nose discharge, nose congestion , mouth pain, mouth swelling, throat pain, throat swelling, other Respiratory: denies: cough, dry, shortness of breath, hemoptysis, SOB with excertion, pleuritic pain, sputum, wheezing, other Cardiovascular: denies: chest pain, palpitations, orthopnea, paroxysmal noc. dyspnea, edema, light headedness, other Gastrointestinal: denies: nausea, vomitting, abdominal pain, diarrhea, constipation, melena, hematochezia, other Genitourinary: denies: dysuria, frequency, incontinence, hematuria, retention, other Musculoskeletal: denies: neck pain, shoulder pain, arm pain, back pain, hand pain, leg pain, foot pain, other - Medication Medications: Active Medications Generic Name Dose Route Start Last Admin Trade Name Freq PRN Reason Stop Dose Admin Acetaminophen 650 mg 01/31/19 04:25 02/06/19 11:49 Tylenol PO 650 mg Q4H PRN Administration Headache/Fever/Mild Pain (1-3) Hydrocodone Bitart/Acetaminophen 1 tab 02/06/19 16:27 02/11/19 22:00 [place] 7.5/325 PO 1 tab Q6H PRN Administration Pain Calcium Carbonate 1,000 mg 02/09/19 11:34 02/09/19 12:02 Tums PO 1,000 mg Q4H PRN Administration HEART BURN Carbidopa/Levodopa 1 tab 02/06/19 14:00 02/13/19 05:49 Sinemet 25-100 PER TUBE 1 tab Q8HR BERNARDINO Administration Donepezil HCl 5 mg 02/01/19 09:00 02/13/19 10:34 Aricept PO 5 mg DAILY BERNARDINO Administration Famotidine 20 mg 02/06/19 09:00 02/13/19 10:35 Pepcid PO 20 mg DAILY BERNARDINO Administration Hyoscyamine Sulfate 0.25 mg 01/31/19 18:00 02/13/19 05:49 Levsin Sl SL 0.25 mg Q6HR BERNARDINO Administration Saccharomyces Boulardii 250 mg 02/12/19 09:00 02/13/19 10:34 Florastor PO 250 mg DAILY BERNARDINO Administration Sertraline HCl 50 mg 02/01/19 09:00 02/13/19 10:34 Zoloft PO 50 mg DAILY BERNARDINO Administration Tamsulosin HCl 0.4 mg 01/31/19 21:00 02/13/19 10:35 Flomax PO 0.4 mg BID BERNARDINO Administration - Exam NAD, awake alert Eye: PERRL, anicteric sclera ENT: normocephalic atraumatic, no oropharyngeal lesions Neck: supple, symmetric, no JVD Heart: RRR, no murmur, no gallops Respiratory: CTAB, no wheezes, no rales Gastrointestinal: soft, non-tender, non-distended, no palpable masses Extremities: no cyanosis, no clubbing Extremeties - other findings: freeman+ Skin: normal turgor, no lesions Neurological: CN's grossly intact, no focal deficits Musculoskeletal: normal tone, normal strength Psychiatric: normal affect, normal behavior Hosp A/P (1) Ureterolithiasis Code(s): N20.1 - CALCULUS OF URETER Status: Acute (2) Nephrolithiasis Status: Acute (3) UTI (urinary tract infection) Status: Ruled-out Qualifiers: Urinary tract infection type: acute cystitis Hematuria presence: without hematuria Qualified Code(s): N30.00 - Acute cystitis without hematuria (4) Asthma Code(s): J45.909 - UNSPECIFIED ASTHMA, UNCOMPLICATED Status: Chronic Qualifiers: Asthma severity: mild Asthma persistence: intermittent Asthma complication type: uncomplicated Qualified Code(s): J45.20 - Mild intermittent asthma, uncomplicated (5) CKD (chronic kidney disease) stage 3, GFR 30-59 ml/min Code(s): N18.3 - CHRONIC KIDNEY DISEASE, STAGE 3 (MODERATE) Status: Chronic (6) CLL (chronic lymphocytic leukemia) Code(s): C91.90 - LYMPHOID LEUKEMIA, UNSPECIFIED NOT HAVING ACHIEVED REMISSION Status: Chronic (7) Chronic systolic congestive heart failure, NYHA class 3 Code(s): I50.22 - CHRONIC SYSTOLIC (CONGESTIVE) HEART FAILURE Status: Chronic (8) Coronary artery disease Code(s): I25.10 - ATHSCL HEART DISEASE OF [place] CORONARY ARTERY W/O ANG PCTRS Status: Chronic (9) DM type 2 (diabetes mellitus, type 2) Status: Chronic Qualifiers: Diabetes mellitus usp insulin use: without usp use Diabetes mellitus complication status: with unspecified complications (10) Dyslipidemia Code(s): E78.5 - HYPERLIPIDEMIA, UNSPECIFIED Status: Chronic (11) H/O prostate cancer Code(s): Z85.46 - PERSONAL HISTORY OF MALIGNANT NEOPLASM OF PROSTATE Status: Chronic (12) HTN (hypertension) Code(s): I10 - ESSENTIAL (PRIMARY) HYPERTENSION Status: Chronic Qualifiers: Hypertension type: essential hypertension Qualified Code(s): I10 - Essential (primary) hypertension (13) Ischemic cardiomyopathy Code(s): I25.5 - ISCHEMIC CARDIOMYOPATHY Status: Chronic (14) Obesity (BMI 30-39.9) Code(s): E66.9 - OBESITY, UNSPECIFIED Status: Chronic (15) Parkinson disease Code(s): G20 - PARKINSON'S DISEASE Status: Chronic (16) Physical deconditioning Code(s): R53.81 - OTHER MALAISE Status: Chronic (17) Metabolic encephalopathy Code(s): G93.41 - METABOLIC ENCEPHALOPATHY Status: Resolved (18) Septic shock Code(s): A41.9 - SEPSIS, UNSPECIFIED ORGANISM; R65.21 - SEVERE SEPSIS WITH SEPTIC SHOCK Status: Resolved (19) Horseshoe kidney Code(s): Q63.1 - LOBULATED, FUSED AND HORSESHOE KIDNEY Status: Chronic (20) Hematuria Code(s): R31.9 - HEMATURIA, UNSPECIFIED Status: Resolved - Plan old records reviewed/req, PT/OT, social worker school bladder irrigation now off transfer to medical floor continue PT/OT and possible need for placement medication reviewed as below symptomatic treatment
[2019-02-14] MEDS: Hyoscyamine Sulfate SL 0.125 mg Tablet SL SCH ×4 (06:20→23:40)
[2019-02-14] MEDS: Carbidopa/Levodopa 25-100 mg Tablet PER TUBE SCH (06:21)
[2019-02-14 07:07] LABS: #Basophils 0.1 thou/uL (0.0-0.2); #Eosinphils 0.2 thou/uL (0.0-0.7); #Lymphocytes 2.1 thou/uL (1.20-3.40); #Monocytes 0.7 thou/uL (0.11-0.59); #Neutrophils 5.3 thou/uL (1.40-6.50); %Basophils 0.6 % (0.0-1.0); %Eosinophils 2.5 % (0.0-10.0); %Lymphocytes 25.1 % (21.0-51.0); %Monocytes 8.6 % (0.0-10.0); %Neutrophils 63.3 % (42.0-75.0); Hemoglobin 8.9 g/dL (14.0-18.0); Mean Corpuscular HGB CONC 32.8 g/dL (32.0-36.0); Mean Corpuscular Hemoglobin 31.9 pg (27.0-31.0); Mean Corpuscular Volume 97.4 fL (78.0-98.0); Mean Platelet Volume 6.7 fL (7.4-10.4); Platelet Count 314 thou/uL (130-400); RBC Distribution Width 13.9 % (11.5-14.5); Red Blood Cell (RBC) Count 2.79 mill/uL (4.70-6.10); White Blood Cell (WBC) Count 8.4 thou/uL (4.8-10.8)
[2019-02-14 07:29] LABS: ALT (SGPT) Less than 7 U/L (8-55); AST (SGOT) 15 U/L (5-34); Albumin 2.5 g/dL (3.4-4.8); Alkaline Phosphatase 73 U/L (40-150); Anion Gap 11 mmol/L (10-20); BUN (Urea Nitrogen) 36 mg/dL (8.4-25.7); Bilirubin, Total 0.6 mg/dL (0.2-1.2); Calc. Creatinine Clearance 40 mL/min (70-130); Calcium 8.2 mg/dL (7.8-10.44); Carbon Dioxide 27 mmol/L (23-31); Chloride 108 mmol/L (98-107); Estimated GFR-MDRD 32; Globulin 2.5 g/dL (2.4-3.5); Glucose 91 mg/dL (83-110); Potassium 3.3 mmol/L (3.5-5.1); Sodium 143 mmol/L (136-145)
--- NOTE | 2019-02-14 07:49 | PRG ---
DATE OF SERVICE: 02/14/2019 SUBJECTIVE: The patient is alert and awake, states that he feels well. PHYSICAL EXAMINATION: VITAL SIGNS: Stable. He is afebrile. Blood pressure 114/64. I's and O's 1750 in and 900. ABDOMEN: Obese, protuberant, soft. No rigidity. No rebound. : Benavides catheter draining concentrated yellow urine with no evidence of hematuria. LABORATORY DATA: CBC yesterday is stable. Creatinine 2.1. No recent labs. A.m. labs are pending. All cultures negative. IMPRESSION AND PLAN: Mr. Rowland is an 88-year-old male, previously followed by Dr. Mcknight with history of; 1. Horseshoe kidney. 2. Bilateral large stone burden. 3. Presented with renal failure, sepsis, secondary to right high-grade obstruction due to multiple ureteral calculi postop day #14, status post cystoscopy, right retrograde, 6 x 22 double-J ureteral stent. 4. Hematuria secondary to high-grade obstruction, subcapsular bleed on initial presentation. H and H stable, patient has been off CBI, hematuria resolved. 5. History of chronic lymphocytic leukemia. 6. History of atrial fibrillation, previously on Eliquis. Anticoagulation currently contraindicated due to presenting hematuria, which has been approved by Cardiology due to presenting issues. 7. Renal failure, status post stent, required dialysis, currently off hemodialysis, and his renal function continues to slowly improve. 8. History of prostate cancer, in remission, previously on Casodex, discontinued by Medical Oncology. 9. Benign prostatic hyperplasia on cystoscopy. Continue Flomax, Avodart added. RECOMMENDATIONS: The patient will most likely stay for the next few days, as there are issues of [facility] to a [facility] facility. I spoke with oil field caser, likely stay most of next week, pending placement. He continues to improve medically. Surgically stable. patient has been fully informed that we will proceed with elective ureteroscopy and laser lithotripsy in few weeks. Continue indwelling Benavides catheter for now, anticipate when placement near finalized, I will initiate a voiding trial. The patient is stable from urologic perspective. Dr. Kota Pérez from [facility] covering me this weekend, for p.r.n. issues for Mr. Rowland. Job ID: [id number] [facility]
[2019-02-14] MEDS ORDERED: hydrALAZINE 20 MG/ML VIAL SLOW IVP PRN (08:02)
[2019-02-14] MEDS ORDERED: Diabetic Tussin 200 MG/10 ML UDCUP PO PRN (08:02)
[2019-02-14] MEDS ORDERED: Loperamide HCl 2 MG CAP PO PRN (08:02)
[2019-02-14] MEDS ORDERED: Bisacodyl 10 MG SUPP PR PRN (08:02)
[2019-02-14] MEDS ORDERED: Cepastat Lozenges 1 LOZ PO PRN (08:02)
[2019-02-14] MEDS ORDERED: Senokot S 8.6-50 MG TAB PO PRN (08:02)
[2019-02-14] MEDS ORDERED: Sodium Chloride 0.65% Nasal 44 ML BOT EA NARE PRN (08:02)
[2019-02-14] MEDS ORDERED: Loratadine 10 MG TAB PO PRN (08:02)
[2019-02-14] MEDS ORDERED: Artificial Tears 18 DROP/0.9 ML EA EYE PRN (08:02)
[2019-02-14] MEDS ORDERED: Carvedilol 6.25 MG TAB PO SCH (09:00)
--- NOTE | 2019-02-14 10:22 | PRG ---
DATE OF SERVICE: 02/14/2019 SUBJECTIVE: Patient was seen and examined at bedside and overnight events noted. Patient denies any shortness of breath or chest pain or palpitation. No history of nausea or vomiting or diarrhea or fever or chills or cramps. OBJECTIVE: GENERAL: This is an obese male, in no apparent distress. VITAL SIGNS: Temperature 98.5. Heart rate 80. Respiratory rate 20. Blood pressure 114/64. HEENT: Atraumatic, normocephalic. Oral mucosa is moist NECK: Supple. CARDIOVASCULAR: S1, S2 heard. Rate and rhythm regular. RESPIRATORY: Clear to auscultation. GASTROINTESTINAL: Abdomen is soft. MUSCULOSKELETAL: No tenderness. No edema. DERMATOLOGIC: No skin rash. NEUROLOGIC: Alert and awake and oriented X3. No focal neurologic deficits. Moving all the extremities. PSYCHIATRIC: Mood and affect normal. LABORATORY DATA: Potassium 3.3, BUN is 36, and creatinine is 1.9. ASSESSMENT AND PLAN: 1. Acute kidney injury on chronic kidney disease, stage 3. Renal function with improvement. 2. Edema, controlled of legs. 3. Hypokalemia. Cautious replacement. 4. Anemia of chronic disease. 5. History of hypertension, stable. Continue to monitor renal function. Avoid nephrotoxins. We will follow. Job ID: [id number]
[2019-02-14] MEDS: Gabapentin 100 MG CAP PO SCH ×3 (10:26→20:29)
[2019-02-14] MEDS: Finasteride 5 MG TAB PO SCH (10:26)
[2019-02-14] MEDS: Polyethylene Glycol 3350 17 GM Packet PO SCH (10:26)
[2019-02-14] MEDS: Potassium Chloride 20 MEQ TAB PO SCH (10:27)
[2019-02-14] MEDS: Folic Acid 1 MG TAB PO SCH (10:27)
[2019-02-14] MEDS: Topiramate 25 MG TAB PO SCH (10:27)
[2019-02-14] MEDS: Allopurinol 100 MG TAB PO SCH (10:27)
[2019-02-14] MEDS: Dutasteride 0.5 MG CAP PO SCH (10:27)
[2019-02-14] MEDS: Famotidine 20 MG TAB PO SCH (10:28)
[2019-02-14] MEDS: Saccharomyces boulardii 250 MG CAP PO SCH (10:28)
[2019-02-14] MEDS: Carbidopa/Levodopa 25-100 mg Tablet PO SCH ×3 (10:28→23:30)
[2019-02-14] MEDS: Donepezil HCl 5 MG TAB PO SCH (10:28)
[2019-02-14] MEDS: Tamsulosin HCl 0.4 MG CAP PO SCH ×2 (10:29→20:28)
--- NOTE | 2019-02-14 12:44 | PDOC.HOSPP ---
- Subjective Encounter Date: 02/14/19 Encounter Time: 09:45 Subjective: Patient seen and examined. No new complaints. No overnight events - Objective Vital Signs & Weight: Vital Signs (12 hours) Temp Pulse Resp BP Pulse Ox 02/14/19 08:00 93 L 02/14/19 07:05 98.5 F 88 16 114/64 93 L 02/14/19 04:00 98.3 F 81 20 128/69 94 L Weight Admit Weight 221 lb 12.56 oz Weight 234 lb Most Recent Monitor Data Heart Rate from ECG 94 NIBP 123/69 NIBP BP-Mean 87 Respiration from ECG 21 SpO2 98 I&O: 02/13/19 02/14/19 02/15/19 06:59 06:59 06:59 Intake Total 694 1750 Output Total 450 900 Balance 244 850 Result Diagrams: 02/14/19 06:36 02/14/19 06:36 ROS - Review of Systems Constitutional: reports: weakness. denies: fever, chills, sweats, malaise, other ENT: denies: ear pain, ear discharge, nose pain, nose discharge, nose congestion , mouth pain, mouth swelling, throat pain, throat swelling, other Respiratory: denies: cough, dry, shortness of breath, hemoptysis, SOB with excertion, pleuritic pain, sputum, wheezing, other Cardiovascular: denies: chest pain, palpitations, orthopnea, paroxysmal noc. dyspnea, edema, light headedness, other Gastrointestinal: denies: nausea, vomitting, abdominal pain, diarrhea, constipation, melena, hematochezia, other Genitourinary: denies: dysuria, frequency, incontinence, hematuria, retention, other Musculoskeletal: denies: neck pain, shoulder pain, arm pain, back pain, hand pain, leg pain, foot pain, other - Medication Medications: Active Medications Generic Name Dose Route Start Last Admin Trade Name Freq PRN Reason Stop Dose Admin Acetaminophen 650 mg 01/31/19 04:25 02/06/19 11:49 Tylenol PO 650 mg Q4H PRN Administration Headache/Fever/Mild Pain (1-3) Hydrocodone Bitart/Acetaminophen 1 tab 02/06/19 16:27 02/11/19 22:00 [place] 7.5/325 PO 1 tab Q6H PRN Administration Pain Allopurinol 100 mg 02/14/19 09:00 02/14/19 10:27 Zyloprim PO 100 mg DAILY BERNARDINO Administration Carbidopa/Levodopa 1 tab 02/14/19 10:00 02/14/19 10:28 Sinemet 25-100 PO 1 tab Q8HR BERNARDINO Administration Donepezil HCl 5 mg 02/01/19 09:00 02/14/19 10:28 Aricept PO 5 mg DAILY BERNARDINO Administration Dutasteride 0.5 mg 02/14/19 09:00 02/14/19 10:27 Avodart PO 0.5 mg DAILY BERNARDINO Administration Famotidine 20 mg 02/06/19 09:00 02/14/19 10:28 Pepcid PO 20 mg DAILY BERNARDINO Administration Finasteride 5 mg 02/14/19 09:00 02/14/19 10:26 Proscar PO 5 mg DAILY BERNARDINO Administration Folic Acid 1 mg 02/14/19 09:00 02/14/19 10:27 Folvite PO 1 mg DAILY BERNARDINO Administration Gabapentin 100 mg 02/14/19 09:00 02/14/19 10:26 Neurontin PO 100 mg TID BERNARDINO Administration Hyoscyamine Sulfate 0.25 mg 01/31/19 18:00 02/14/19 06:20 Levsin Sl SL 0.25 mg Q6HR BERNARDINO Administration Polyethylene Glycol 17 gm 02/14/19 09:00 02/14/19 10:26 Miralax PO 17 gm DAILY BERNARDINO Administration Potassium Chloride 20 meq 02/14/19 09:00 02/14/19 10:27 K-Dur PO 20 meq DAILY BERNARDINO Administration Saccharomyces Boulardii 250 mg 02/12/19 09:00 02/14/19 10:28 Florastor PO 250 mg DAILY BERNARDINO Administration Sertraline HCl 50 mg 02/01/19 09:00 02/14/19 10:28 Zoloft PO 50 mg DAILY BERNARDINO Administration Tamsulosin HCl 0.4 mg 01/31/19 21:00 02/14/19 10:29 Flomax PO 0.4 mg BID BERNARDINO Administration Topiramate 25 mg 02/14/19 09:00 02/14/19 10:27 Topamax PO 25 mg DAILY BERNARDINO Administration - Exam NAD, awake alert Eye: PERRL, anicteric sclera ENT: normocephalic atraumatic, no oropharyngeal lesions Neck: supple, symmetric, no JVD Heart: RRR, no murmur, no gallops, no rubs Respiratory: CTAB, no wheezes, no rales, no ronchi Gastrointestinal: soft, non-tender, non-distended Gastrointestinal - other findings: freeman+ Extremities: no cyanosis, no clubbing Skin: normal turgor, no lesions Neurological: CN's grossly intact, normal sensation to touch, no focal deficits , no new deficit Musculoskeletal: normal tone, normal strength Psychiatric: normal affect, normal behavior Hosp A/P (1) Ureterolithiasis Code(s): N20.1 - CALCULUS OF URETER Status: Acute (2) Nephrolithiasis Status: Acute (3) Asthma Code(s): J45.909 - UNSPECIFIED ASTHMA, UNCOMPLICATED Status: Chronic Qualifiers: Asthma severity: mild Asthma persistence: intermittent Asthma complication type: uncomplicated Qualified Code(s): J45.20 - Mild intermittent asthma, uncomplicated (4) CKD (chronic kidney disease) stage 3, GFR 30-59 ml/min Code(s): N18.3 - CHRONIC KIDNEY DISEASE, STAGE 3 (MODERATE) Status: Chronic (5) CLL (chronic lymphocytic leukemia) Code(s): C91.90 - LYMPHOID LEUKEMIA, UNSPECIFIED NOT HAVING ACHIEVED REMISSION Status: Chronic (6) Chronic systolic congestive heart failure, NYHA class 3 Code(s): I50.22 - CHRONIC SYSTOLIC (CONGESTIVE) HEART FAILURE Status: Chronic (7) Coronary artery disease Code(s): I25.10 - ATHSCL HEART DISEASE OF [place] CORONARY ARTERY W/O ANG PCTRS Status: Chronic (8) DM type 2 (diabetes mellitus, type 2) Status: Chronic Qualifiers: Diabetes mellitus termite control representative insulin use: without custodial use Diabetes mellitus complication status: with unspecified complications (9) Dyslipidemia Code(s): E78.5 - HYPERLIPIDEMIA, UNSPECIFIED Status: Chronic (10) H/O prostate cancer Code(s): Z85.46 - PERSONAL HISTORY OF MALIGNANT NEOPLASM OF PROSTATE Status: Chronic (11) HTN (hypertension) Code(s): I10 - ESSENTIAL (PRIMARY) HYPERTENSION Status: Chronic Qualifiers: Hypertension type: essential hypertension Qualified Code(s): I10 - Essential (primary) hypertension (12) Ischemic cardiomyopathy Code(s): I25.5 - ISCHEMIC CARDIOMYOPATHY Status: Chronic (13) Obesity (BMI 30-39.9) Code(s): E66.9 - OBESITY, UNSPECIFIED Status: Chronic (14) Parkinson disease Code(s): G20 - PARKINSON'S DISEASE Status: Chronic (15) Physical deconditioning Code(s): R53.81 - OTHER MALAISE Status: Chronic (16) Horseshoe kidney Code(s): Q63.1 - LOBULATED, FUSED AND HORSESHOE KIDNEY Status: Chronic (17) CHF (congestive heart failure), NYHA class III Code(s): I50.9 - HEART FAILURE, UNSPECIFIED Status: Chronic Qualifiers: Congestive heart failure type: combined (18) Hematuria Code(s): R31.9 - HEMATURIA, UNSPECIFIED Status: Resolved - Plan old records reviewed/req, PT/OT, older adult social work specialist bladder irrigation now off, hematuria continue PT/OT and will need for placement medication reviewed as below symptomatic treatment
[2019-02-14] MEDS: Simvastatin 40 MG TAB PO SCH (20:28)
[2019-02-15] MEDS: Hyoscyamine Sulfate SL 0.125 mg Tablet SL SCH ×3 (06:39→17:01)
[2019-02-15] MEDS: Carbidopa/Levodopa 25-100 mg Tablet PO SCH ×3 (06:40→21:43)
[2019-02-15] MEDS: Saccharomyces boulardii 250 MG CAP PO SCH (09:23)
[2019-02-15] MEDS: Tamsulosin HCl 0.4 MG CAP PO SCH ×2 (09:23→21:43)
[2019-02-15] MEDS: Folic Acid 1 MG TAB PO SCH (09:23)
[2019-02-15] MEDS: Allopurinol 100 MG TAB PO SCH (09:23)
[2019-02-15] MEDS: Polyethylene Glycol 3350 17 GM Packet PO SCH (09:23)
[2019-02-15] MEDS: Donepezil HCl 5 MG TAB PO SCH (09:24)
[2019-02-15] MEDS: Gabapentin 100 MG CAP PO SCH ×3 (09:24→21:43)
[2019-02-15] MEDS: Finasteride 5 MG TAB PO SCH (09:24)
[2019-02-15] MEDS: Topiramate 25 MG TAB PO SCH (09:24)
[2019-02-15] MEDS: Famotidine 20 MG TAB PO SCH (09:24)
[2019-02-15] MEDS: Carvedilol 3.125 MG TAB PO SCH (09:24)
[2019-02-15] MEDS: Potassium Chloride 20 MEQ TAB PO SCH (09:24)
[2019-02-15] MEDS: Dutasteride 0.5 MG CAP PO SCH (09:45)
--- NOTE | 2019-02-15 12:07 | PRG ---
DATE OF SERVICE: 02/15/2019 SUBJECTIVE: Patient was seen and examined at bedside and overnight events noted. Patient denies any shortness of breath or chest pain or palpitation. No history of nausea or vomiting or diarrhea or fever or chills or cramps. OBJECTIVE: GENERAL: This is an obese male, in no apparent distress. VITAL SIGNS: Temperature 98.6. Pulse 90. Respiratory rate 16. Blood pressure 91/59. HEENT: Atraumatic, normocephalic. Oral mucosa is moist NECK: Supple. CARDIOVASCULAR: S1, S2 heard. Rate and rhythm regular. RESPIRATORY: Clear to auscultation. GASTROINTESTINAL: Abdomen is soft. MUSCULOSKELETAL: No tenderness. No edema. DERMATOLOGIC: No skin rash. NEUROLOGIC: Alert and awake and oriented X3. No focal neurologic deficits. Moving all the extremities. PSYCHIATRIC: Mood and affect normal. LABORATORY DATA: No labs done today. ASSESSMENT AND PLAN: 1. Acute kidney injury on chronic kidney disease stage 3 with improvement in renal function. No labs today. We will check in the morning. 2. Hypokalemia. Cautious replacement recommended. 3. Edema, controlled. 4. Anemia of chronic disease. 5. History of hypertension. Labs are getting better. We will recheck labs in the morning. Cautious potassium supplements. Job ID: [id number]
--- NOTE | 2019-02-15 12:44 | PDOC.HOSPP ---
- Subjective Encounter Date: 02/15/19 Encounter Time: 12:42 Subjective: Patient seen and examined. - Objective Vital Signs & Weight: Vital Signs (12 hours) Temp Pulse Resp BP BP Pulse Ox 02/15/19 08:23 98.6 F 90 16 91/59 L 94 L 02/15/19 04:00 98.4 F 81 20 107/58 L 95 Weight Admit Weight 221 lb 12.56 oz Weight 231 lb 3 oz Most Recent Monitor Data Heart Rate from ECG 94 NIBP 123/69 NIBP BP-Mean 87 Respiration from ECG 21 SpO2 98 I&O: 02/14/19 02/15/19 02/16/19 06:59 06:59 06:59 Intake Total 1750 1980 Output Total 900 1520 Balance 850 460 Result Diagrams: 02/14/19 06:36 02/14/19 06:36 ROS - Medication Medications: Active Medications Generic Name Dose Route Start Last Admin Trade Name Freq PRN Reason Stop Dose Admin Acetaminophen 650 mg 01/31/19 04:25 02/06/19 11:49 Tylenol PO 650 mg Q4H PRN Administration Headache/Fever/Mild Pain (1-3) Hydrocodone Bitart/Acetaminophen 1 tab 02/06/19 16:27 02/11/19 22:00 [place] 7.5/325 PO 1 tab Q6H PRN Administration Pain Allopurinol 100 mg 02/14/19 09:00 02/15/19 09:23 Zyloprim PO 100 mg DAILY BERNARDINO Administration Carbidopa/Levodopa 1 tab 02/14/19 10:00 02/15/19 06:40 Sinemet 25-100 PO 1 tab Q8HR BERNARDINO Administration Carvedilol 3.125 mg 02/15/19 09:00 02/15/19 09:24 Coreg PO 3.125 mg DAILY BERNARDINO Administration Cholecalciferol 1,000 units 02/15/19 09:00 02/15/19 09:23 Vitamin D3 PO 1,000 units DAILY BERNARDINO Administration Donepezil HCl 5 mg 02/01/19 09:00 02/15/19 09:24 Aricept PO 5 mg DAILY BERNARDINO Administration Dutasteride 0.5 mg 02/14/19 09:00 02/15/19 09:45 Avodart PO 0.5 mg DAILY BERNARDINO Administration Famotidine 20 mg 02/06/19 09:00 02/15/19 09:24 Pepcid PO 20 mg DAILY BERNARDINO Administration Finasteride 5 mg 02/14/19 09:00 02/15/19 09:24 Proscar PO 5 mg DAILY BERNARDINO Administration Folic Acid 1 mg 02/14/19 09:00 02/15/19 09:23 Folvite PO 1 mg DAILY BERNARDINO Administration Gabapentin 100 mg 02/14/19 09:00 02/15/19 09:24 Neurontin PO 100 mg TID BERNARDINO Administration Hyoscyamine Sulfate 0.25 mg 01/31/19 18:00 02/15/19 11:44 Levsin Sl SL 0.25 mg Q6HR BERNARDINO Administration Polyethylene Glycol 17 gm 02/14/19 09:00 02/15/19 09:23 Miralax PO 17 gm DAILY BERNARDINO Administration Potassium Chloride 20 meq 02/14/19 09:00 02/15/19 09:24 K-Dur PO 20 meq DAILY BERNARDINO Administration Saccharomyces Boulardii 250 mg 02/12/19 09:00 02/15/19 09:23 Florastor PO 250 mg DAILY BERNARDINO Administration Sertraline HCl 50 mg 02/01/19 09:00 02/15/19 09:23 Zoloft PO 50 mg DAILY BERNARDINO Administration Simvastatin 40 mg 02/14/19 21:00 02/14/19 20:28 Zocor PO 40 mg HS BERNARDINO Administration Tamsulosin HCl 0.4 mg 01/31/19 21:00 02/15/19 09:23 Flomax PO 0.4 mg BID BERNARDINO Administration Topiramate 25 mg 02/14/19 09:00 02/15/19 09:24 Topamax PO 25 mg DAILY BERNARDINO Administration - Exam NAD, awake alert Eye: PERRL, anicteric sclera ENT: normocephalic atraumatic, no oropharyngeal lesions Neck: supple, symmetric, no JVD Heart: RRR, no murmur, no gallops Respiratory: CTAB, no wheezes, no rales Gastrointestinal: soft, non-tender, non-distended, normal bowel sounds Hosp A/P (1) Horseshoe kidney Code(s): Q63.1 - LOBULATED, FUSED AND HORSESHOE KIDNEY Status: Chronic (2) Abdominal pain Code(s): R10.9 - UNSPECIFIED ABDOMINAL PAIN Status: Acute Qualifiers: (3) Nephrolithiasis Status: Acute (4) Asthma Code(s): J45.909 - UNSPECIFIED ASTHMA, UNCOMPLICATED Status: Chronic Qualifiers: Asthma severity: mild Asthma persistence: intermittent Asthma complication type: uncomplicated Qualified Code(s): J45.20 - Mild intermittent asthma, uncomplicated (5) CKD (chronic kidney disease) stage 3, GFR 30-59 ml/min Code(s): N18.3 - CHRONIC KIDNEY DISEASE, STAGE 3 (MODERATE) Status: Chronic (6) CLL (chronic lymphocytic leukemia) Code(s): C91.90 - LYMPHOID LEUKEMIA, UNSPECIFIED NOT HAVING ACHIEVED REMISSION Status: Chronic (7) HTN (hypertension) Code(s): I10 - ESSENTIAL (PRIMARY) HYPERTENSION Status: Chronic Qualifiers: Hypertension type: essential hypertension Qualified Code(s): I10 - Essential (primary) hypertension (8) Ischemic cardiomyopathy Code(s): I25.5 - ISCHEMIC CARDIOMYOPATHY Status: Chronic (9) Obesity (BMI 30-39.9) Code(s): E66.9 - OBESITY, UNSPECIFIED Status: Chronic - Plan - pending placement - cont current medical plan of care for now - vitals stable - case and plan d/w patient - DC once placement has been arranged
[2019-02-15] MEDS: Simvastatin 40 MG TAB PO SCH (21:43)
[2019-02-16] MEDS: Hyoscyamine Sulfate SL 0.125 mg Tablet SL SCH ×4 (00:43→17:54)
[2019-02-16] MEDS: Carbidopa/Levodopa 25-100 mg Tablet PO SCH ×3 (05:08→20:47)
[2019-02-16 05:42] LABS: Anion Gap 14 mmol/L (10-20); BUN (Urea Nitrogen) 28 mg/dL (8.4-25.7); Calc. Creatinine Clearance 43 mL/min (70-130); Calcium 8.1 mg/dL (7.8-10.44); Carbon Dioxide 20 mmol/L (23-31); Chloride 112 mmol/L (98-107); Estimated GFR-MDRD 35; Glucose 100 mg/dL (83-110); Potassium 4.2 mmol/L (3.5-5.1); Sodium 142 mmol/L (136-145)
[2019-02-16] MEDS: Tamsulosin HCl 0.4 MG CAP PO SCH ×2 (07:58→20:47)
[2019-02-16] MEDS: Folic Acid 1 MG TAB PO SCH (07:58)
[2019-02-16] MEDS: Allopurinol 100 MG TAB PO SCH (07:58)
[2019-02-16] MEDS: Saccharomyces boulardii 250 MG CAP PO SCH (07:58)
[2019-02-16] MEDS: Carvedilol 3.125 MG TAB PO SCH (07:58)
[2019-02-16] MEDS: Donepezil HCl 5 MG TAB PO SCH (07:58)
[2019-02-16] MEDS: Topiramate 25 MG TAB PO SCH (07:59)
[2019-02-16] MEDS: Polyethylene Glycol 3350 17 GM Packet PO SCH (07:59)
[2019-02-16] MEDS: Gabapentin 100 MG CAP PO SCH ×3 (07:59→20:47)
[2019-02-16] MEDS: Finasteride 5 MG TAB PO SCH (07:59)
[2019-02-16] MEDS: Famotidine 20 MG TAB PO SCH (07:59)
[2019-02-16] MEDS: Potassium Chloride 20 MEQ TAB PO SCH (07:59)
[2019-02-16] MEDS: Dutasteride 0.5 MG CAP PO SCH (10:43)
--- NOTE | 2019-02-16 12:55 | PDOC.HOSPP ---
- Subjective Encounter Date: 02/16/19 Encounter Time: 12:55 Subjective: Patient seen and examined, no new issues or complaints. - Objective Vital Signs & Weight: Vital Signs (12 hours) Temp Pulse Resp BP Pulse Ox 02/16/19 08:00 98.2 F 70 18 102/60 92 L Weight Admit Weight 221 lb 12.56 oz Weight 231 lb 3 oz Most Recent Monitor Data Heart Rate from ECG 94 NIBP 123/69 NIBP BP-Mean 87 Respiration from ECG 21 SpO2 98 I&O: 02/15/19 02/16/19 02/17/19 06:59 06:59 06:59 Intake Total 1980 2470 360 Output Total 1520 2325 Balance 460 145 360 Result Diagrams: 02/14/19 06:36 02/16/19 05:01 ROS - Medication Medications: Active Medications Generic Name Dose Route Start Last Admin Trade Name Freq PRN Reason Stop Dose Admin Acetaminophen 650 mg 01/31/19 04:25 02/06/19 11:49 Tylenol PO 650 mg Q4H PRN Administration Headache/Fever/Mild Pain (1-3) Hydrocodone Bitart/Acetaminophen 1 tab 02/06/19 16:27 02/11/19 22:00 [place] 7.5/325 PO 1 tab Q6H PRN Administration Pain Allopurinol 100 mg 02/14/19 09:00 02/16/19 07:58 Zyloprim PO 100 mg DAILY BERNARDINO Administration Carbidopa/Levodopa 1 tab 02/14/19 10:00 02/16/19 07:58 Sinemet 25-100 PO 1 tab Q8HR BERNARDINO Administration Carvedilol 3.125 mg 02/15/19 09:00 02/16/19 07:58 Coreg PO 3.125 mg DAILY BERNARDINO Administration Cholecalciferol 1,000 units 02/15/19 09:00 02/16/19 07:58 Vitamin D3 PO 1,000 units DAILY BERNARDINO Administration Donepezil HCl 5 mg 02/01/19 09:00 02/16/19 07:58 Aricept PO 5 mg DAILY BERNARDINO Administration Dutasteride 0.5 mg 02/14/19 09:00 02/16/19 10:43 Avodart PO 0.5 mg DAILY BERNARDINO Administration Famotidine 20 mg 02/06/19 09:00 02/16/19 07:59 Pepcid PO 20 mg DAILY BERNARDINO Administration Finasteride 5 mg 02/14/19 09:00 02/16/19 07:59 Proscar PO 5 mg DAILY BERANRDINO Administration Folic Acid 1 mg 02/14/19 09:00 02/16/19 07:58 Folvite PO 1 mg DAILY BERNARDINO Administration Gabapentin 100 mg 02/14/19 09:00 02/16/19 07:59 Neurontin PO 100 mg TID BERNARDINO Administration Hyoscyamine Sulfate 0.25 mg 01/31/19 18:00 02/16/19 07:57 Levsin Sl SL 0.25 mg Q6HR BERNARDINO Administration Polyethylene Glycol 17 gm 02/14/19 09:00 02/16/19 07:59 Miralax PO 17 gm DAILY BERNARDINO Administration Potassium Chloride 20 meq 02/14/19 09:00 02/16/19 07:59 K-Dur PO 20 meq DAILY BERNARDINO Administration Saccharomyces Boulardii 250 mg 02/12/19 09:00 02/16/19 07:58 Florastor PO 250 mg DAILY BERNARDINO Administration Sertraline HCl 50 mg 02/01/19 09:00 02/16/19 07:59 Zoloft PO 50 mg DAILY BERNARDINO Administration Simvastatin 40 mg 02/14/19 21:00 02/15/19 21:43 Zocor PO 40 mg HS BERNARDINO Administration Sodium Chloride 10 ml 01/31/19 16:05 02/16/19 08:00 Flush - Normal Saline IVF 10 ml PRN PRN Administration Saline Flush Tamsulosin HCl 0.4 mg 01/31/19 21:00 02/16/19 07:58 Flomax PO 0.4 mg BID BERNARDINO Administration Topiramate 25 mg 02/14/19 09:00 02/16/19 07:59 Topamax PO 25 mg DAILY BERNARDINO Administration - Exam NAD, awake alert Eye: PERRL, anicteric sclera ENT: normocephalic atraumatic, no oropharyngeal lesions Neck: supple, symmetric, no JVD Heart: RRR, no murmur, no gallops, no rubs Respiratory: CTAB, no wheezes, no rales, no ronchi Gastrointestinal: soft, non-tender, non-distended, normal bowel sounds Hosp A/P (1) Horseshoe kidney Code(s): Q63.1 - LOBULATED, FUSED AND HORSESHOE KIDNEY Status: Chronic (2) Abdominal pain Code(s): R10.9 - UNSPECIFIED ABDOMINAL PAIN Status: Acute Qualifiers: (3) Nephrolithiasis Status: Acute (4) Asthma Code(s): J45.909 - UNSPECIFIED ASTHMA, UNCOMPLICATED Status: Chronic Qualifiers: Asthma severity: mild Asthma persistence: intermittent Asthma complication type: uncomplicated Qualified Code(s): J45.20 - Mild intermittent asthma, uncomplicated (5) CKD (chronic kidney disease) stage 3, GFR 30-59 ml/min Code(s): N18.3 - CHRONIC KIDNEY DISEASE, STAGE 3 (MODERATE) Status: Chronic (6) CLL (chronic lymphocytic leukemia) Code(s): C91.90 - LYMPHOID LEUKEMIA, UNSPECIFIED NOT HAVING ACHIEVED REMISSION Status: Chronic (7) HTN (hypertension) Code(s): I10 - ESSENTIAL (PRIMARY) HYPERTENSION Status: Chronic Qualifiers: Hypertension type: essential hypertension Qualified Code(s): I10 - Essential (primary) hypertension (8) Ischemic cardiomyopathy Code(s): I25.5 - ISCHEMIC CARDIOMYOPATHY Status: Chronic (9) Obesity (BMI 30-39.9) Code(s): E66.9 - OBESITY, UNSPECIFIED Status: Chronic - Plan - pending placement - cont current medical plan of care for now - vitals stable - case and plan d/w patient - DC once placement has been arranged
--- NOTE | 2019-02-16 13:22 | PRG ---
DATE OF SERVICE: 02/16/2019 SUBJECTIVE: Patient was seen and examined at bedside and overnight events noted. Patient denies any shortness of breath or chest pain or palpitation. No history of nausea or vomiting or diarrhea or fever or chills or cramps. OBJECTIVE: GENERAL: This is a well-built male, in no apparent distress. VITAL SIGNS: Temperature 98.2. Heart rate 75. Respiratory rate 18. Blood pressure 102/60. HEENT: Atraumatic, normocephalic. Oral mucosa is moist NECK: Supple. CARDIOVASCULAR: S1, S2 heard. Rate and rhythm regular. RESPIRATORY: Clear to auscultation. GASTROINTESTINAL: Abdomen is soft. MUSCULOSKELETAL: No tenderness. No edema. DERMATOLOGIC: No skin rash. NEUROLOGIC: Alert and awake and oriented X3. No focal neurologic deficits. Moving all the extremities. PSYCHIATRIC: Mood and affect normal. LABORATORY DATA: Potassium 4.2, BUN is 28, and creatinine is 1.8. ASSESSMENT AND PLAN: 1. Acute kidney injury on chronic kidney disease, stage 3. Renal function is close to his baseline. His baseline creatinine is around 1.6. 2. Edema, controlled. 3. Hypokalemia, monitor, better. 4. History of hypertension. 5. Anemia of chronic disease. 6. Monitor labs. Job ID: [id number]
[2019-02-16] MEDS ORDERED: diphenhydrAMINE 25 MG CAP PO SCH (20:30)
[2019-02-16] MEDS: Simvastatin 40 MG TAB PO SCH (20:47)
[2019-02-17] MEDS: Acetaminophen 325 MG TAB PO PRN ×2 (00:21→20:44)
[2019-02-17] MEDS: Hyoscyamine Sulfate SL 0.125 mg Tablet SL SCH ×2 (00:21→05:49)
[2019-02-17] MEDS: Carbidopa/Levodopa 25-100 mg Tablet PO SCH ×3 (05:48→20:44)
[2019-02-17] MEDS: Gabapentin 100 MG CAP PO SCH ×3 (08:03→20:45)
[2019-02-17] MEDS: Dutasteride 0.5 MG CAP PO SCH (08:03)
[2019-02-17] MEDS: Allopurinol 100 MG TAB PO SCH (08:03)
[2019-02-17] MEDS: Saccharomyces boulardii 250 MG CAP PO SCH (08:03)
[2019-02-17] MEDS: Tamsulosin HCl 0.4 MG CAP PO SCH ×2 (08:03→20:45)
[2019-02-17] MEDS: Famotidine 20 MG TAB PO SCH (08:03)
[2019-02-17] MEDS: Finasteride 5 MG TAB PO SCH (08:04)
[2019-02-17] MEDS: Folic Acid 1 MG TAB PO SCH (08:04)
[2019-02-17] MEDS: Potassium Chloride 20 MEQ TAB PO SCH (08:04)
[2019-02-17] MEDS: Carvedilol 3.125 MG TAB PO SCH (08:04)
[2019-02-17] MEDS: Donepezil HCl 5 MG TAB PO SCH (08:04)
[2019-02-17] MEDS: Polyethylene Glycol 3350 17 GM Packet PO SCH (08:08)
--- NOTE | 2019-02-17 09:47 | PDOC.HOSPP ---
- Subjective Encounter Date: 02/17/19 Subjective: Mr. Rowland complains of burning with urination overnight. He has not had any more burning or pain since early this morning. He also complains of a mildly sore throat and a dry cough x2 days. He continues to have epigastric abdominal pain, which has not changed or worsened. He has no other complaints, and is pending placement for rehabilitation. - Objective Vital Signs & Weight: Vital Signs (12 hours) Temp Pulse Resp BP Pulse Ox 02/17/19 08:00 93 L 02/17/19 07:27 97.8 F 70 18 107/60 93 L Weight Admit Weight 100.6 kg Weight 104.865 kg Most Recent Monitor Data Heart Rate from ECG 94 NIBP 123/69 NIBP BP-Mean 87 Respiration from ECG 21 SpO2 98 I&O: 02/16/19 02/17/19 02/18/19 06:59 06:59 06:59 Intake Total 2470 1570 360 Output Total 2325 800 Balance 145 770 360 Result Diagrams: 02/14/19 06:36 02/16/19 05:01 Additional Labs: Microbiology 02/14/19 15:50 Stool C. difficile GDH Antigen & Toxins - Final Laboratory Tests 02/07/19 02/08/19 02/09/19 03:50 03:30 04:50 Hgb 7.3 L 9.2 L 8.6 L Potassium Creatinine 02/10/19 02/13/19 02/13/19 04:45 05:50 05:50 Hgb 8.7 L 8.6 L Potassium 3.5 Creatinine 2.14 H 02/14/19 06:36 Hgb Potassium 3.3 L Creatinine 1.97 H ROS - Review of Systems Constitutional: denies: fever, chills, sweats, malaise ENT: reports: nose discharge (slight- 2 day history), throat pain (mild- 2 day history) Respiratory: reports: cough (2 day history, mostly a dry cough). denies: shortness of breath, sputum Cardiovascular: denies: chest pain, palpitations, edema, light headedness Gastrointestinal: reports: nausea, abdominal pain (epigastric, unchanged in nature or intensity from previous exams). denies: vomitting, diarrhea, constipation, hematochezia Genitourinary: reports: dysuria (complains that he had burning with urination yesterday and last night, but none today), incontinence, other (Flank pain bilaterally). denies: frequency, hematuria Skin: denies: rash, lesions Neurological: denies: weakness, numbness, confusion - Medication Medications: Active Medications Generic Name Dose Route Start Last Admin Trade Name Freq PRN Reason Stop Dose Admin Acetaminophen 650 mg 01/31/19 04:25 02/17/19 00:21 Tylenol PO 650 mg Q4H PRN Administration Headache/Fever/Mild Pain (1-3) Allopurinol 100 mg 02/14/19 09:00 02/17/19 08:03 Zyloprim PO 100 mg DAILY BERNARDINO Administration Carbidopa/Levodopa 1 tab 02/14/19 10:00 02/17/19 05:48 Sinemet 25-100 PO 1 tab Q8HR BERNARDINO Administration Carvedilol 3.125 mg 02/15/19 09:00 02/17/19 08:04 Coreg PO 3.125 mg DAILY BERNARDINO Administration Cholecalciferol 1,000 units 02/15/19 09:00 02/17/19 08:03 Vitamin D3 PO 1,000 units DAILY BERNARDINO Administration Donepezil HCl 5 mg 02/01/19 09:00 02/17/19 08:04 Aricept PO 5 mg DAILY BERNARDINO Administration Dutasteride 0.5 mg 02/14/19 09:00 02/17/19 08:03 Avodart PO 0.5 mg DAILY BERNARDINO Administration Famotidine 20 mg 02/06/19 09:00 02/17/19 08:03 Pepcid PO 20 mg DAILY BERNARDINO Administration Finasteride 5 mg 02/14/19 09:00 02/17/19 08:04 Proscar PO 5 mg DAILY BERNARDINO Administration Folic Acid 1 mg 02/14/19 09:00 02/17/19 08:04 Folvite PO 1 mg DAILY BERNARDINO Administration Gabapentin 100 mg 02/14/19 09:00 02/17/19 08:03 Neurontin PO 100 mg TID BERNARDINO Administration Polyethylene Glycol 17 gm 02/14/19 09:00 02/17/19 08:08 Miralax PO 17 gm DAILY BERNARDINO Administration Potassium Chloride 20 meq 02/14/19 09:00 02/17/19 08:04 K-Dur PO 20 meq DAILY BERNARDINO Administration Saccharomyces Boulardii 250 mg 02/12/19 09:00 02/17/19 08:03 Florastor PO 250 mg DAILY BERNARDINO Administration Sertraline HCl 50 mg 02/01/19 09:00 02/17/19 08:04 Zoloft PO 50 mg DAILY BERNARDINO Administration Simvastatin 40 mg 02/14/19 21:00 02/16/19 20:47 Zocor PO 40 mg HS BERNARDINO Administration Sodium Chloride 10 ml 01/31/19 16:05 02/17/19 08:05 Flush - Normal Saline IVF 10 ml PRN PRN Administration Saline Flush Tamsulosin HCl 0.4 mg 01/31/19 21:00 02/17/19 08:03 Flomax PO 0.4 mg BID BERNARDINO Administration - Exam awake alert Eye: PERRL, anicteric sclera ENT: normocephalic atraumatic, no oropharyngeal lesions, moist mucosa ENT - other findings: Pharynx is non-erythematous, no current nasal discharge. Neck: supple Heart: RRR (S1 and S2 heard, dimished overall heart sounds due to obese habitus) , no murmur, no gallops, no rubs, normal peripheral pulses Respiratory: no rales, no ronchi, no tachypnea, normal percussion, wheezes ( Faint expiratory wheezes in all lung carlin) Gastrointestinal: soft, non-distended, normal bowel sounds, no palpable masses, tender to palpation (in epigastric region and left and right upper abdomen) Extremities: no cyanosis, no clubbing, no edema Skin: normal turgor, no lesions Neurological: no new deficit Musculoskeletal: generalized weakness Hosp A/P (1) Asthma Code(s): J45.909 - UNSPECIFIED ASTHMA, UNCOMPLICATED Status: Chronic Qualifiers: Asthma severity: mild Asthma persistence: intermittent Asthma complication type: uncomplicated Qualified Code(s): J45.20 - Mild intermittent asthma, uncomplicated Plan: Mild exacerbation, add bronchodilators, O2 prn (2) Ureterolithiasis Code(s): N20.1 - CALCULUS OF URETER Status: Acute Plan: Plan for outpt lithotripsy/ureteroscopy per Urology (3) Acute on chronic renal failure Code(s): N17.9 - ACUTE KIDNEY FAILURE, UNSPECIFIED; N18.9 - CHRONIC KIDNEY DISEASE, UNSPECIFIED Status: Acute Qualifiers: Acute renal failure type: with other specified pathological lesion Chronic kidney disease stage: stage 3 (moderate) Qualified Code(s): N17.8 - Other acute kidney failure; N18.3 - Chronic kidney disease, stage 3 (moderate) Plan: Renal function continuing to improve toward baseline. Daily labs and continue current management. 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 Patient is stable and afebrile. O2 sats have hovered around 93%, and cough and wheezing indicate albuterol treatment for asthma-like symptoms. If sats do not correct with treatment, nasal cannula oxygen can be considered. Otherwise, continue current plan of care until placement is achieved. At that point, patient can be D/C. Await Rehab approval Add Albuterol MDI PT/OT for mobilization
--- NOTE | 2019-02-17 11:13 | PRG ---
DATE OF SERVICE: 02/17/2019 SUBJECTIVE: The patient is alert and awake, doing well. No complaints. Events over the weekend reviewed. OBJECTIVE: VITAL SIGNS: Stable. He is afebrile. I's and O's of 1570 in and 800. GENERAL: The patient is alert and oriented, doing well. LUNGS: Clear. ABDOMEN: Morbidly obese, protuberant, soft. No rigidity. No rebound. : Benavides catheter draining concentrated yellow urine with some sediment. PERTINENT LABORATORY DATA: No new CBC of record. Chemistry profile; sodium 142 , potassium 4.2, BUN is 28, creatinine is 1.8, which has been his baseline since 2017. All cultures are negative. IMPRESSION AND PLAN: Mr. Rowland is an 88-year-old male previously followed by Dr. Mcknight with: 1. History of horseshoe kidney. 2. History of large bilateral stone burden. 3. Presented with renal failure, sepsis, secondary to right high-grade ureteral obstruction, due to multiple ureteral calculi postop day #17, status post cystoscopy, right retrograde, 6 x 22 double-J ureteral stent. 4. Hematuria secondary to high-grade obstruction, subcapsular bleed on initial presentation, resolved. 5. History of chronic lymphocytic leukemia. 6. History of atrial fibrillation, previously on Eliquis, on hold due to history of hematuria. 7. History of renal failure, status post stent, required dialysis intermittently , currently his renal function is back to his near baseline with observation. 8. History of prostate cancer, in remission, previously on Casodex, discontinued by Medical Oncology. 9. History of benign prostatic hypertrophy on cystoscopy. Continue Flomax and Avodart. RECOMMENDATIONS: Continue medical management/optimization.. He is clinically stable. will require ureteroscopy and laser lithotripsy at a later date due to presenting obstructing ureteral calculi. Await placement to rehab. Job ID: [id number] [facility]
--- NOTE | 2019-02-17 11:44 | PRG ---
DATE OF SERVICE: 02/17/2019 SUBJECTIVE: This is an 88-year-old gentleman being seen for acute kidney injury. The patient denies any nausea, vomiting, or chest pain. OBJECTIVE: CONSTITUTIONAL: On exam, the patient is awake and alert. VITAL SIGNS: Afebrile, pulse 70, breathing 16, and blood pressure 112/60. GENERAL APPEARANCE AND MENTAL STATUS: Fair. HEAD/NECK: Normocephalic. Atraumatic. EYES: EOMI. No deformity. EARS: Clear. No ulcers. NOSE: Intact. No lesions. MOUTH: Clear. No discharge. THROAT: Clear. No exudate. LUNGS: Clear. No crackles. CARDIAC: S1, S2. No rub. ABDOMEN: Benign. Bowel sounds positive. GENITALIA/RECTUM: Benavides absent. BACK/EXTREMITIES: Edema 0+. NEUROLOGICAL: Alert and motor intact. SKIN: LYMPHATICS: LABORATORY DATA: Reviewed. ASSESSMENT AND PLAN: 1. Stage 3 chronic kidney disease, stable. 2. Hypertension, stable. 3. Anemia, stable. No indication for dialysis. I will sign off on this patient. Please reconsult as needed. Job ID: [id number]
[2019-02-17] MEDS: PROVENTIL INHALER 6.7 G (200 INHALATIONS) INH SCH ×2 (20:13→23:54)
[2019-02-17] MEDS: diphenhydrAMINE 25 MG CAP PO PRN (20:45)
[2019-02-17] MEDS: Simvastatin 40 MG TAB PO SCH (20:45)
[2019-02-18] MEDS: Carbidopa/Levodopa 25-100 mg Tablet PO SCH ×3 (05:47→21:15)
[2019-02-18] MEDS: PROVENTIL INHALER 6.7 G (200 INHALATIONS) INH SCH ×3 (07:27→18:39)
--- NOTE | 2019-02-18 07:52 | PRG ---
DATE OF SERVICE: 02/18/2019 SUBJECTIVE: The patient without complaints, doing well. OBJECTIVE: VITAL SIGNS: Stable. He is afebrile. Is and Os 1330 in, 1950 out. ABDOMEN: Soft, morbidly obese, protuberant. No rigidity. No rebound. : Benavides catheter, yellow, with some sediment. LABORATORY DATA: No new labs. Creatinine on February 16, is 1.84, which is near his baseline. IMPRESSION/PLAN: Mr. Rowland is an 88-year-old male with past medical history, 1. History of horseshoe kidney. 2. Large bilateral stone burden. 3. Presented with urosepsis, renal failure secondary to high-grade obstruction of the right ureter due to ureteral calculi postoperative day #18, status post cystoscopy, right retrograde, 6 x 22 stent. 4. Hematuria secondary to high-grade obstruction subcapsular bleed, calyceal rupture, resolved. 5. History of chronic lymphocytic leukemia. 6. History of atrial fibrillation, previously on Eliquis, on hold. 7. History of congestive heart failure. 8. Renal failure, resolving. 9. History of prostate cancer, in remission, previously on Casodex, discontinued by Med-Onc. 10. History of benign prostatic hyperplasia on cystoscopy. Continue Flomax, Avodart. RECOMMENDATION: The patient is medically stable, is awaiting final disposition for rehab. I did discuss with the patient, if disposition is pending, and he remains in-house, I did tentatively schedule the patient for ureteroscopy, laser lithotripsy next Sunday. If it works out with Case Management and placement is on hold due to insurance issues, I would prefer to proceed with surgical intervention while the patient is in-house due to medical comorbidities. Discussed with transplant case manager, regarding keeping patient in house until surgery next Sunday. As he presented with critical illness , would prefer surgery in house while all specialists are following the patient. Informed hospitalist. Job ID: [id number] [facility]
[2019-02-18] MEDS: Tamsulosin HCl 0.4 MG CAP PO SCH ×2 (08:53→21:15)
[2019-02-18] MEDS: Saccharomyces boulardii 250 MG CAP PO SCH (08:53)
[2019-02-18] MEDS: Dutasteride 0.5 MG CAP PO SCH (08:53)
[2019-02-18] MEDS: Gabapentin 100 MG CAP PO SCH ×3 (08:53→21:15)
[2019-02-18] MEDS: Famotidine 20 MG TAB PO SCH (08:54)
[2019-02-18] MEDS: Finasteride 5 MG TAB PO SCH (08:54)
[2019-02-18] MEDS: Potassium Chloride 20 MEQ TAB PO SCH (08:54)
[2019-02-18] MEDS: Carvedilol 3.125 MG TAB PO SCH (08:54)
[2019-02-18] MEDS: Folic Acid 1 MG TAB PO SCH (08:54)
[2019-02-18] MEDS: Donepezil HCl 5 MG TAB PO SCH (08:54)
[2019-02-18] MEDS: Allopurinol 100 MG TAB PO SCH (08:55)
[2019-02-18] MEDS: Polyethylene Glycol 3350 17 GM Packet PO SCH (08:55)
--- NOTE | 2019-02-18 13:28 | PDOC.HOSPP ---
- Subjective Encounter Date: 02/18/19 Encounter Time: 13:05 Subjective: f/u for ureterolithiasis, s/p calyceal rupture and ureteral stent placement. UZMA improving and stable. Ambulated up to 24ft today with CGA/RW. - Objective Vital Signs & Weight: Vital Signs (12 hours) Temp Pulse Resp BP Pulse Ox 02/18/19 07:39 98.2 F 63 18 108/65 94 L Weight Admit Weight 221 lb 12.56 oz Weight 231 lb 3 oz Most Recent Monitor Data Heart Rate from ECG 94 NIBP 123/69 NIBP BP-Mean 87 Respiration from ECG 21 SpO2 98 I&O: 02/17/19 02/18/19 02/19/19 06:59 06:59 06:59 Intake Total 1570 1330 Output Total 800 950 Balance 770 380 Result Diagrams: 02/14/19 06:36 02/16/19 05:01 Additional Labs: Microbiology 02/14/19 15:50 Stool C. difficile GDH Antigen & Toxins - Final Laboratory Tests 02/07/19 02/08/19 02/09/19 03:50 03:30 04:50 Hgb 7.3 L 9.2 L 8.6 L Potassium Creatinine 02/10/19 02/13/19 02/13/19 04:45 05:50 05:50 Hgb 8.7 L 8.6 L Potassium 3.5 Creatinine 2.14 H 02/14/19 06:36 Hgb Potassium 3.3 L Creatinine 1.97 H Hospitalist ROS - Medication Medications: Active Medications Generic Name Dose Route Start Last Admin Trade Name Freq PRN Reason Stop Dose Admin Acetaminophen 650 mg 01/31/19 04:25 02/17/19 20:44 Tylenol PO 650 mg Q4H PRN Administration Headache/Fever/Mild Pain (1-3) Albuterol Sulfate 2 puff 02/17/19 19:00 02/18/19 07:27 Proventil Hfa INH 2 puff [id number] BERNARDINO Administration Allopurinol 100 mg 02/14/19 09:00 02/18/19 08:55 Zyloprim PO 100 mg DAILY BERNARDINO Administration Carbidopa/Levodopa 1 tab 02/14/19 10:00 02/18/19 05:47 Sinemet 25-100 PO 1 tab Q8HR BERNARDINO Administration Carvedilol 3.125 mg 02/15/19 09:00 02/18/19 08:54 Coreg PO 3.125 mg DAILY BERNARDINO Administration Cholecalciferol 1,000 units 02/15/19 09:00 02/18/19 08:55 Vitamin D3 PO 1,000 units DAILY BERNARDINO Administration Diphenhydramine HCl 25 mg 02/17/19 20:02 02/17/19 20:45 Benadryl PO 25 mg HSPRN PRN Administration Itching & Insomnia Donepezil HCl 5 mg 02/01/19 09:00 02/18/19 08:54 Aricept PO 5 mg DAILY BERNARDINO Administration Dutasteride 0.5 mg 02/14/19 09:00 02/18/19 08:53 Avodart PO 0.5 mg DAILY BERNARDINO Administration Famotidine 20 mg 02/06/19 09:00 02/18/19 08:54 Pepcid PO 20 mg DAILY BERNARDINO Administration Finasteride 5 mg 02/14/19 09:00 02/18/19 08:54 Proscar PO 5 mg DAILY BERNARDINO Administration Folic Acid 1 mg 02/14/19 09:00 02/18/19 08:54 Folvite PO 1 mg DAILY BERNARDINO Administration Gabapentin 100 mg 02/14/19 09:00 02/18/19 08:53 Neurontin PO 100 mg TID BERNARDINO Administration Polyethylene Glycol 17 gm 02/14/19 09:00 02/18/19 08:55 Miralax PO 17 gm DAILY BERNARDINO Administration Potassium Chloride 20 meq 02/14/19 09:00 02/18/19 08:54 K-Dur PO 20 meq DAILY BERNARDINO Administration Saccharomyces Boulardii 250 mg 02/12/19 09:00 02/18/19 08:53 Florastor PO 250 mg DAILY BERNARDINO Administration Sertraline HCl 50 mg 02/01/19 09:00 02/18/19 08:54 Zoloft PO 50 mg DAILY BERNARDINO Administration Simvastatin 40 mg 02/14/19 21:00 02/17/19 20:45 Zocor PO 40 mg HS BERNARDINO Administration Sodium Chloride 10 ml 01/31/19 16:05 02/17/19 08:05 Flush - Normal Saline IVF 10 ml PRN PRN Administration Saline Flush Tamsulosin HCl 0.4 mg 01/31/19 21:00 02/18/19 08:53 Flomax PO 0.4 mg BID BERNARDINO Administration - Exam General Appearance: NAD, awake alert Eye: PERRL, anicteric sclera ENT: normocephalic atraumatic, no oropharyngeal lesions Neck: supple, symmetric, no JVD, no thyromegaly, no lymphadenopathy Heart: RRR, no murmur, no gallops, no rubs, normal peripheral pulses Respiratory: CTAB, no wheezes, no rales, no ronchi, normal chest expansion Gastrointestinal: soft, non-tender, non-distended, normal bowel sounds Extremities: no cyanosis, no clubbing Skin: normal turgor, no lesions Neurological: CN's grossly intact, no new deficit Musculoskeletal: generalized weakness Psychiatric: oriented to person, oriented to place Hosp A/P (1) Ureterolithiasis Code(s): N20.1 - CALCULUS OF URETER Status: Acute Plan: plan for laser lithotripsy in approx 1 week, continue to monitor renal function closely (2) Acute on chronic renal failure Code(s): N17.9 - ACUTE KIDNEY FAILURE, UNSPECIFIED; N18.9 - CHRONIC KIDNEY DISEASE, UNSPECIFIED Status: Acute Qualifiers: Acute renal failure type: with other specified pathological lesion Chronic kidney disease stage: stage 3 (moderate) Qualified Code(s): N17.8 - Other acute kidney failure; N18.3 - Chronic kidney disease, stage 3 (moderate) Plan: UZMA improved, follow renal function closely (3) Anemia in CKD (chronic kidney disease) Code(s): N18.9 - CHRONIC KIDNEY DISEASE, UNSPECIFIED; D63.1 - ANEMIA IN CHRONIC KIDNEY DISEASE Status: Acute (4) Physical deconditioning Code(s): R53.81 - OTHER MALAISE Status: Chronic Plan: Recommend inpt rehab for aggressive therapy and mobilization (5) Obesity (BMI 30-39.9) Code(s): E66.9 - OBESITY, UNSPECIFIED Status: Chronic (6) Horseshoe kidney Code(s): Q63.1 - LOBULATED, FUSED AND HORSESHOE KIDNEY Status: Chronic (7) Asthma Code(s): J45.909 - UNSPECIFIED ASTHMA, UNCOMPLICATED Status: Chronic Qualifiers: Asthma severity: mild Asthma persistence: intermittent Asthma complication type: uncomplicated Qualified Code(s): J45.20 - Mild intermittent asthma, uncomplicated - Plan plan discussed w/ family, PT/OT, social media marketing manager, out of bed/ambulate Patient is pending placement for rehab services. Recommend inpt rehab for daily physician monitoring given renal function with ureterolithiasis Await Rehab approval Add Albuterol MDI PT/OT for mobilization Laser lithotripsy scheduled in 1 week Low-protein renal diet AM lab: BMP
[2019-02-18 14:45] VITALS: BMI 28.9
[2019-02-18] MEDS: Simvastatin 40 MG TAB PO SCH (21:15)
[2019-02-19] MEDS: PROVENTIL INHALER 6.7 G (200 INHALATIONS) INH SCH ×4 (00:30→18:49)
[2019-02-19 03:52] LABS: Anion Gap 10 mmol/L (10-20); BUN (Urea Nitrogen) 30 mg/dL (8.4-25.7); Calc. Creatinine Clearance 48 mL/min (70-130); Calcium 8.3 mg/dL (7.8-10.44); Carbon Dioxide 25 mmol/L (23-31); Chloride 114 mmol/L (98-107); Estimated GFR-MDRD 40; Glucose 85 mg/dL (83-110); Sodium 145 mmol/L (136-145)
[2019-02-19] MEDS: Carbidopa/Levodopa 25-100 mg Tablet PO SCH ×3 (04:48→21:52)
--- NOTE | 2019-02-19 09:03 | PRG ---
DATE OF SERVICE: 02/19/2019 SUBJECTIVE: The patient without complaints, doing well. OBJECTIVE: VITAL SIGNS: Stable. He is afebrile. 300 of urine output. ABDOMEN: Morbidly obese and soft. No rigidity. No rebound. : Benavides catheter with concentrated yellow urine with some sediment. PERTINENT LABORATORY DATA: No recent CBC. Creatinine today is 1.6, which is his baseline. All cultures negative dated from January 31. IMPRESSION AND PLAN: 1. Mr. Rowland is an 88-year-old male with history of horseshoe kidney. 2. Multiple bilateral renal moiety stone burden. 3. High-grade right ureteral obstruction due to ureteral calculi postop day #19, status post cysto, right retrograde, and 6 x 22 stent. 4. History of hematuria secondary to obstructive high-grade obstructions of capsular bleed and calyceal rupture, resolved. 5. History of CLL. 6. History of atrial fibrillation, previously on Eliquis, on hold due to hematuria. 7. History of congestive heart failure. 8. Renal failure, resolving. 9. History of prostate cancer, in remission, previously on Casodex. 10. History of benign prostatic hyperplasia on cystoscopy, on Flomax and Avodart. We await placement for the patient's disposition. I did recommend to the patient and discussed with hospitalist that I would prefer the patient to stay in-house as he is high risk for recurrent admission. As he is scheduled for ureteroscopy next Sunday, consider the patient to be in-house until then for medical optimization. will need to re-discuss with Cardiology and Infectious Disease regarding further optimization if needed. Continue present management. Job ID: [id number] [facility]
[2019-02-19] MEDS: Potassium Chloride 20 MEQ TAB PO SCH (09:22)
[2019-02-19] MEDS: Dutasteride 0.5 MG CAP PO SCH (09:22)
[2019-02-19] MEDS: Donepezil HCl 5 MG TAB PO SCH (09:22)
[2019-02-19] MEDS: Gabapentin 100 MG CAP PO SCH ×3 (09:22→20:16)
[2019-02-19] MEDS: Saccharomyces boulardii 250 MG CAP PO SCH (09:23)
[2019-02-19] MEDS: Folic Acid 1 MG TAB PO SCH (09:23)
[2019-02-19] MEDS: Famotidine 20 MG TAB PO SCH (09:23)
[2019-02-19] MEDS: Carvedilol 3.125 MG TAB PO SCH (09:23)
[2019-02-19] MEDS: Finasteride 5 MG TAB PO SCH (09:23)
[2019-02-19] MEDS: Allopurinol 100 MG TAB PO SCH (09:23)
[2019-02-19] MEDS: Polyethylene Glycol 3350 17 GM Packet PO SCH (09:24)
[2019-02-19] MEDS: Tamsulosin HCl 0.4 MG CAP PO SCH ×2 (09:28→20:16)
--- NOTE | 2019-02-19 10:21 | PDOC.HOSPP ---
- Subjective Encounter Date: 02/19/19 Subjective: patient was admitted for urosepsis, resolved. f/u on extensive ureterolithiasis s/p ureteral stent placement following calyceal rupture. UZMA resolving toward baseline renal function. 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 Still complains of upper abdominal pain he has had throughout his hospital course, which is unchanged in nature or intensity from previous encounters. - Objective Vital Signs & Weight: Vital Signs (12 hours) Temp Pulse Resp BP Pulse Ox 02/19/19 08:00 98.1 F 66 18 120/51 L 94 L 02/19/19 07:11 75 16 92 L 02/19/19 04:00 98 F 70 18 110/65 93 L 02/19/19 00:30 72 12 Weight Admit Weight 100.6 kg Weight 104.865 kg Most Recent Monitor Data Heart Rate from ECG 94 NIBP 123/69 NIBP BP-Mean 87 Respiration from ECG 21 SpO2 98 I&O: 02/18/19 02/19/19 02/20/19 06:59 06:59 06:59 Intake Total 1330 350 Output Total 950 Balance 380 350 Result Diagrams: 02/14/19 06:36 02/19/19 03:25 Additional Labs: WBC 28.8 on admission, now 8.4 H&H stable over course of admission. BUN 29 on admission, elevated up to 64 on day 10, and now 30. Cr 1.65, improving toward baseline of 1.6. Hospitalist ROS - Review of Systems Constitutional: denies: fever, chills, sweats ENT: denies: nose discharge, nose congestion, throat pain Respiratory: reports: shortness of breath Cardiovascular: denies: chest pain, palpitations Gastrointestinal: reports: abdominal pain. denies: nausea, vomitting, diarrhea , constipation Genitourinary: reports: other (freeman catheter present, output 350ml this am). denies: dysuria, frequency Neurological: denies: weakness, numbness - Medication Medications: Active Medications Generic Name Dose Route Start Last Admin Trade Name Freq PRN Reason Stop Dose Admin Acetaminophen 650 mg 01/31/19 04:25 02/17/19 20:44 Tylenol PO 650 mg Q4H PRN Administration Headache/Fever/Mild Pain (1-3) Albuterol Sulfate 2 puff 02/17/19 19:00 02/19/19 07:11 Proventil Hfa INH 2 puff [id number] BERNARDINO Administration Allopurinol 100 mg 02/14/19 09:00 02/19/19 09:23 Zyloprim PO 100 mg DAILY BERNARDINO Administration Carbidopa/Levodopa 1 tab 02/14/19 10:00 02/19/19 04:48 Sinemet 25-100 PO 1 tab Q8HR BERNARDINO Administration Carvedilol 3.125 mg 02/15/19 09:00 02/19/19 09:23 Coreg PO 3.125 mg DAILY BERNARDINO Administration Cholecalciferol 1,000 units 02/15/19 09:00 02/19/19 09:23 Vitamin D3 PO 1,000 units DAILY BERNARDINO Administration Diphenhydramine HCl 25 mg 02/17/19 20:02 02/17/19 20:45 Benadryl PO 25 mg HSPRN PRN Administration Itching & Insomnia Donepezil HCl 5 mg 02/01/19 09:00 02/19/19 09:22 Aricept PO 5 mg DAILY BERNARDINO Administration Dutasteride 0.5 mg 02/14/19 09:00 02/19/19 09:22 Avodart PO 0.5 mg DAILY BERNARDINO Administration Famotidine 20 mg 02/06/19 09:00 02/19/19 09:23 Pepcid PO 20 mg DAILY BERNARDINO Administration Finasteride 5 mg 02/14/19 09:00 02/19/19 09:23 Proscar PO 5 mg DAILY BERNARDINO Administration Folic Acid 1 mg 02/14/19 09:00 02/19/19 09:23 Folvite PO 1 mg DAILY BERNARDINO Administration Gabapentin 100 mg 02/14/19 09:00 02/19/19 09:22 Neurontin PO 100 mg TID BERNARDINO Administration Polyethylene Glycol 17 gm 02/14/19 09:00 02/19/19 09:24 Miralax PO Not Given DAILY BERNARDINO Potassium Chloride 20 meq 02/14/19 09:00 02/19/19 09:22 K-Dur PO 20 meq DAILY BERNARDINO Administration Saccharomyces Boulardii 250 mg 02/12/19 09:00 02/19/19 09:23 Florastor PO 250 mg DAILY BERNARDINO Administration Sertraline HCl 50 mg 02/01/19 09:00 02/19/19 09:22 Zoloft PO 50 mg DAILY BERNARDINO Administration Simvastatin 40 mg 02/14/19 21:00 02/18/19 21:15 Zocor PO 40 mg HS BERNARDINO Administration Sodium Chloride 10 ml 01/31/19 16:05 02/17/19 08:05 Flush - Normal Saline IVF 10 ml PRN PRN Administration Saline Flush Tamsulosin HCl 0.4 mg 01/31/19 21:00 02/19/19 09:28 Flomax PO 0.4 mg BID BERNARDINO Administration - Exam General Appearance: awake alert Eye: PERRL ENT: normocephalic atraumatic, no oropharyngeal lesions, moist mucosa Neck: supple, symmetric Heart: RRR (Heart sounds distant secondary to body habitus), no murmur, no gallops, no rubs Respiratory: CTAB, no wheezes, no rales, no ronchi, no tachypnea Gastrointestinal: soft, normal bowel sounds, no palpable masses, no guarding, no rigidity, tender to palpation (in epigastric region and right and left upper quadrants, unchanged from previous exams.) Gastrointestinal - other findings: soft, no distention, no rebound Extremities: no cyanosis, no clubbing, no edema Skin: normal turgor Neurological: CN's grossly intact, no focal deficits, no new deficit Musculoskeletal: normal tone Psychiatric: oriented to person, oriented to place Hosp A/P (1) Ureterolithiasis Code(s): N20.1 - CALCULUS OF URETER Status: Acute Plan: Plan for laser lithotripsy on 02/26/19 (2) Acute on chronic renal failure Code(s): N17.9 - ACUTE KIDNEY FAILURE, UNSPECIFIED; N18.9 - CHRONIC KIDNEY DISEASE, UNSPECIFIED Status: Acute Qualifiers: Acute renal failure type: with other specified pathological lesion Chronic kidney disease stage: stage 3 (moderate) Qualified Code(s): N17.8 - Other acute kidney failure; N18.3 - Chronic kidney disease, stage 3 (moderate) Plan: Cr improving, is 1.65, almost at baseline function of 1.6. Continue to monitor, daily BMP. (3) Anemia in CKD (chronic kidney disease) Code(s): N18.9 - CHRONIC KIDNEY DISEASE, UNSPECIFIED; D63.1 - ANEMIA IN CHRONIC KIDNEY DISEASE Status: Acute Plan: Normocytic anemia, stable, continue to monitor. (4) Physical deconditioning Code(s): R53.81 - OTHER MALAISE Status: Chronic Plan: Continue PT/OT/OOB while inpatient. Inpt Rehab denied by insurance. 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 Will start nasal cannula oxygen to keep O2 sats above 94. - Plan plan discussed w/ family, freeman catheter, PT/OT, clinical social worker, out of bed/ ambulate Patient is stable overall UZMA is resolving, with Cr nearly back to baseline 1.6. Inpatient rehab denied by insurance carrier PT/OT/OOB today for physical deconditioning. Laser lithotripsy in 1 week is planned for ureterolithiasis. Add nasal cannula oxygen to albuterol treatment for low O2 sats, 92-94 on room air, secondary to asthma. Daily BMP, am. CM for SNF options
[2019-02-19] MEDS: Simvastatin 40 MG TAB PO SCH (20:16)
[2019-02-20] MEDS: PROVENTIL INHALER 6.7 G (200 INHALATIONS) INH SCH ×4 (00:29→18:43)
[2019-02-20] MEDS: Carbidopa/Levodopa 25-100 mg Tablet PO SCH ×3 (05:47→21:05)
--- NOTE | 2019-02-20 07:45 | PRG ---
DATE OF SERVICE: 02/20/2019 SUBJECTIVE: The patient without complaints, doing well. Vital signs are stable. He is afebrile. I's and O's 980 in and 1300 out. Abdomen is morbidly obese, protuberant. No rigidity, no rebound. , Benavides catheter adequately secured, urine output concentrated, yellow with sediment. PERTINENT LABORATORY DATA: No recent labs. Creatinine yesterday has normalized to 1.65, which is his baseline. IMPRESSION AND PLAN: 1. Mr. Rowland is a pleasant 88-year-old male with past medical history of horseshoe kidney, previously followed by Dr. Mcknight. 2. History of large bilateral stone burden. 3. Presented with urosepsis, septic shock, renal failure secondary to high-grade right ureteral obstruction due to ureteral calculi, postoperative day #19, status post cystoscopy, right retrograde, 6 x 22 stent. 4. Hematuria secondary to high-grade obstruction, subcapsular bleed with calyceal rupture, resolved. 5. History of chronic lymphocytic leukemia. 6. Atrial fibrillation, previously on Eliquis on hold due to presenting issues. 7. Congestive heart failure. 8. Renal failure, resolved. Dialysis has been discontinued as his renal function has returned to his baseline. 9. History of prostate cancer, in remission, previously on Casodex, discontinued by [facility] 10. Benign prostate hypertrophy, on cystoscopy. Continue Flomax, Avodart. RECOMMENDATIONS: Review case management note. The patient has been approved by the [place] to stay in-house until surgical intervention next Sunday. I will discuss with Cardiology, Infectious Disease regarding any further input from their service. His previous urine culture and blood culture are negative. The patient has been informed regarding the plans to proceed with surgery next Sunday and agrees. Conference with infectious disease Dr. Alfred. Per his recommendations will provide preoperative meropenem vancomycin. I also discussed with his health researcher Dr. Shin. Due to his pre-existing cardiac comorbidities, patient does have risk of surgical intervention. However , as he presented with life threatening sepsis, renal failure patient and family desires to proceed with ureteroscopy laser lithotripsy. Alternative options also discussed regarding observation, stent pull and observation which I do not recommend as he presented with septic shock . I inform patient and family that the goal would be to clear the obstructing ureteral stone component , and observe residual stone nidus in the renal moiety to minimize intraoperative time. Reached out to power of senior trial attorney, also discussed with son regarding Plan of action. Family members agreed to proceed as planned. I will be off service until Sunday, on-call Urology to cover for p.r.n. issues. I do not anticipate acute urologic event over the weekend as he has been stable. Job ID: [id number] MTDD
[2019-02-20] MEDS: Allopurinol 100 MG TAB PO SCH (09:06)
[2019-02-20] MEDS: Folic Acid 1 MG TAB PO SCH (09:06)
[2019-02-20] MEDS: Polyethylene Glycol 3350 17 GM Packet PO SCH (09:06)
[2019-02-20] MEDS: Gabapentin 100 MG CAP PO SCH ×3 (09:06→20:30)
[2019-02-20] MEDS: Famotidine 20 MG TAB PO SCH (09:06)
[2019-02-20] MEDS: Tamsulosin HCl 0.4 MG CAP PO SCH ×2 (09:07→20:30)
[2019-02-20] MEDS: Potassium Chloride 20 MEQ TAB PO SCH (09:07)
[2019-02-20] MEDS: Donepezil HCl 5 MG TAB PO SCH (09:07)
[2019-02-20] MEDS: Saccharomyces boulardii 250 MG CAP PO SCH (09:07)
[2019-02-20] MEDS: Carvedilol 3.125 MG TAB PO SCH (09:07)
[2019-02-20] MEDS: Finasteride 5 MG TAB PO SCH (09:07)
[2019-02-20] MEDS: Dutasteride 0.5 MG CAP PO SCH (09:07)
--- NOTE | 2019-02-20 10:48 | PDOC.HOSPP ---
- Subjective Encounter Date: 02/20/19 Subjective: f/u on ureterolithiasis s/p ureteral stent placement following calyceal rupture. Laser lithotripsy is scheduled for next week. Patient was originally admitted for urosepsis, which has since resolved. UZMA overlayed on chronic renal failure was noted on admission, but renal function has now improved to baseline. Patient is currently still pending rehab placement. On today's encounter, patient has no new complaints. - Objective Vital Signs & Weight: Vital Signs (12 hours) Temp Pulse Resp BP Pulse Ox 02/20/19 07:35 98.1 F 66 18 115/53 L 94 L 02/20/19 06:24 71 16 92 L 02/20/19 04:00 97.9 F 64 18 110/65 97 02/20/19 00:29 69 12 94 L Weight Admit Weight 100.6 kg Weight 104.865 kg Most Recent Monitor Data Heart Rate from ECG 94 NIBP 123/69 NIBP BP-Mean 87 Respiration from ECG 21 SpO2 98 O2 sats improved overall compared to previous days. I&O: 02/19/19 02/20/19 02/21/19 06:59 06:59 06:59 Intake Total 350 980 Output Total 1300 Balance 350 -320 Result Diagrams: 02/14/19 06:36 02/19/19 03:25 Additional Labs: Cr has improved to 1.65, which approximates patient's baseline of 1.6. Hospitalist ROS - Review of Systems Constitutional: denies: fever, chills, weakness ENT: denies: nose discharge, nose congestion, throat pain Respiratory: denies: cough, shortness of breath, wheezing Cardiovascular: denies: chest pain, palpitations, edema Gastrointestinal: denies: nausea, vomitting, abdominal pain, diarrhea, constipation Genitourinary: denies: dysuria Neurological: denies: weakness, numbness, confusion - Medication Medications: Active Medications Generic Name Dose Route Start Last Admin Trade Name Freq PRN Reason Stop Dose Admin Acetaminophen 650 mg 01/31/19 04:25 02/17/19 20:44 Tylenol PO 650 mg Q4H PRN Administration Headache/Fever/Mild Pain (1-3) Albuterol Sulfate 2 puff 02/17/19 19:00 02/20/19 06:24 Proventil Hfa INH 2 puff [id number] BERNARDINO Administration Allopurinol 100 mg 02/14/19 09:00 02/20/19 09:06 Zyloprim PO 100 mg DAILY BERNARDINO Administration Carbidopa/Levodopa 1 tab 02/14/19 10:00 02/20/19 05:47 Sinemet 25-100 PO 1 tab Q8HR BERNARDINO Administration Carvedilol 3.125 mg 02/15/19 09:00 02/20/19 09:07 Coreg PO 3.125 mg DAILY BERNARDINO Administration Cholecalciferol 1,000 units 02/15/19 09:00 02/20/19 09:07 Vitamin D3 PO 1,000 units DAILY BERNARDINO Administration Diphenhydramine HCl 25 mg 02/17/19 20:02 02/17/19 20:45 Benadryl PO 25 mg HSPRN PRN Administration Itching & Insomnia Donepezil HCl 5 mg 02/01/19 09:00 02/20/19 09:07 Aricept PO 5 mg DAILY BERNARDINO Administration Dutasteride 0.5 mg 02/14/19 09:00 02/20/19 09:07 Avodart PO 0.5 mg DAILY BERNARDINO Administration Famotidine 20 mg 02/06/19 09:00 02/20/19 09:06 Pepcid PO 20 mg DAILY BERNARDINO Administration Finasteride 5 mg 02/14/19 09:00 02/20/19 09:07 Proscar PO 5 mg DAILY BERNARDINO Administration Folic Acid 1 mg 02/14/19 09:00 02/20/19 09:06 Folvite PO 1 mg DAILY BERNARDINO Administration Gabapentin 100 mg 02/14/19 09:00 02/20/19 09:06 Neurontin PO 100 mg TID BERNARDINO Administration Polyethylene Glycol 17 gm 02/14/19 09:00 02/20/19 09:06 Miralax PO 17 gm DAILY BERNARDINO Administration Potassium Chloride 20 meq 02/14/19 09:00 02/20/19 09:07 K-Dur PO 20 meq DAILY BERNARDINO Administration Saccharomyces Boulardii 250 mg 02/12/19 09:00 02/20/19 09:07 Florastor PO 250 mg DAILY BERNARDINO Administration Sertraline HCl 50 mg 02/01/19 09:00 02/20/19 09:06 Zoloft PO 50 mg DAILY BERNARDINO Administration Simvastatin 40 mg 02/14/19 21:00 08/28/19 20:16 Zocor PO 40 mg HS BERNARDINO Administration Sodium Chloride 10 ml 01/31/19 16:05 02/17/19 08:05 Flush - Normal Saline IVF 10 ml PRN PRN Administration Saline Flush Tamsulosin HCl 0.4 mg 01/31/19 21:00 02/20/19 09:07 Flomax PO 0.4 mg BID BERNARDINO Administration - Exam General Appearance: NAD, awake alert General - other findings: Patient appeared sleepy, but was awake and engaging in conversation. Eye: anicteric sclera ENT: normocephalic atraumatic, no oropharyngeal lesions, moist mucosa Neck: supple, symmetric, no JVD, no thyromegaly Heart: RRR (Distant heart sounds secondary to body habitus), no murmur, no gallops, no rubs Respiratory: CTAB, no wheezes, no rales, no ronchi, no tachypnea Gastrointestinal: soft, non-tender, non-distended, normal bowel sounds, no palpable masses, no hepatomegaly, no splenomegaly Extremities: no cyanosis, no clubbing, no edema Skin: normal turgor Neurological: no weakness, no focal deficits Psychiatric: A&O x 3 Psychiatric - other findings: Short term memory impaired;repeatedly couldn't recall if he'd ordered bfast Hosp A/P (1) Ureterolithiasis Code(s): N20.1 - CALCULUS OF URETER Status: Acute Plan: Laser lithotripsy planned for next week. (2) Acute on chronic renal failure Code(s): N17.9 - ACUTE KIDNEY FAILURE, UNSPECIFIED; N18.9 - CHRONIC KIDNEY DISEASE, UNSPECIFIED Status: Acute Qualifiers: Acute renal failure type: with other specified pathological lesion Chronic kidney disease stage: stage 3 (moderate) Qualified Code(s): N17.8 - Other acute kidney failure; N18.3 - Chronic kidney disease, stage 3 (moderate) Plan: Cr improved to baseline, UZMA resolved. (3) Anemia in CKD (chronic kidney disease) Code(s): N18.9 - CHRONIC KIDNEY DISEASE, UNSPECIFIED; D63.1 - ANEMIA IN CHRONIC KIDNEY DISEASE Status: Acute (4) Physical deconditioning Code(s): R53.81 - OTHER MALAISE Status: Chronic Plan: PT/OT/OOB while inpatient. 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 O2 sats and lung auscultation findings have improved with administration of bronchodilators. - Plan PT/OT, mental health social worker, out of bed/ambulate, DVT proph w/SCDs Stable overall Continue PT/OT for mobilization Plan for Lithotripsy in approx 1 week Continue Avodart/Proscar DVT ppx Avoid nephrotoxic meds and limit contrast exposure SNF options pending
[2019-02-20] MEDS: Simvastatin 40 MG TAB PO SCH (20:30)
[2019-02-21] MEDS: PROVENTIL INHALER 6.7 G (200 INHALATIONS) INH SCH ×4 (01:43→19:05)
[2019-02-21] MEDS: Carbidopa/Levodopa 25-100 mg Tablet PO SCH ×3 (05:22→22:42)
[2019-02-21] MEDS: Donepezil HCl 5 MG TAB PO SCH (09:06)
[2019-02-21] MEDS: Gabapentin 100 MG CAP PO SCH ×3 (09:06→20:31)
[2019-02-21] MEDS: Folic Acid 1 MG TAB PO SCH (09:06)
[2019-02-21] MEDS: Finasteride 5 MG TAB PO SCH (09:06)
[2019-02-21] MEDS: Allopurinol 100 MG TAB PO SCH (09:06)
[2019-02-21] MEDS: Carvedilol 3.125 MG TAB PO SCH (09:06)
[2019-02-21] MEDS: Famotidine 20 MG TAB PO SCH (09:06)
[2019-02-21] MEDS: Dutasteride 0.5 MG CAP PO SCH (09:06)
[2019-02-21] MEDS: Tamsulosin HCl 0.4 MG CAP PO SCH ×2 (09:07→20:31)
[2019-02-21] MEDS: Saccharomyces boulardii 250 MG CAP PO SCH (09:07)
[2019-02-21] MEDS: Potassium Chloride 20 MEQ TAB PO SCH (09:07)
[2019-02-21] MEDS: Polyethylene Glycol 3350 17 GM Packet PO SCH (09:08)
[2019-02-21] MEDS: Acetaminophen 325 MG TAB PO PRN (14:21)
--- NOTE | 2019-02-21 14:41 | PDOC.HOSPP ---
- Subjective Encounter Date: 02/21/19 Encounter Time: 14:40 Subjective: f/u for ureterolithiasis s/p R ureteral stent placement after calyceal rupture with sepsis. Overall clinically improved. Refused to work with PT today. - Objective Vital Signs & Weight: Vital Signs (12 hours) Temp Pulse Resp BP Pulse Ox 02/21/19 12:59 77 12 02/21/19 07:20 98.4 F 77 18 107/65 92 L 02/21/19 06:55 73 12 Weight Admit Weight 221 lb 12.56 oz Weight 231 lb 3 oz Most Recent Monitor Data Heart Rate from ECG 94 NIBP 123/69 NIBP BP-Mean 87 Respiration from ECG 21 SpO2 98 I&O: 02/20/19 02/21/19 02/22/19 06:59 06:59 06:59 Intake Total 980 400 Output Total 1300 500 Balance -320 -100 Result Diagrams: 02/14/19 06:36 02/19/19 03:25 Additional Labs: Microbiology 02/14/19 15:50 Stool C. difficile GDH Antigen & Toxins - Final Laboratory Tests 02/07/19 02/08/19 02/09/19 03:50 03:30 04:50 Hgb 7.3 L 9.2 L 8.6 L Potassium Creatinine 02/10/19 02/13/19 02/13/19 04:45 05:50 05:50 Hgb 8.7 L 8.6 L Potassium 3.5 Creatinine 2.14 H 02/14/19 06:36 Hgb Potassium 3.3 L Creatinine 1.97 H Hospitalist ROS - Medication Medications: Active Medications Generic Name Dose Route Start Last Admin Trade Name Freq PRN Reason Stop Dose Admin Acetaminophen 650 mg 01/31/19 04:25 02/21/19 14:21 Tylenol PO 650 mg Q4H PRN Administration Headache/Fever/Mild Pain (1-3) Albuterol Sulfate 2 puff 02/17/19 19:00 02/21/19 12:59 Proventil Hfa INH 2 puff [id number] BERNARDINO Administration Allopurinol 100 mg 02/14/19 09:00 02/21/19 09:06 Zyloprim PO 100 mg DAILY BERNARDINO Administration Carbidopa/Levodopa 1 tab 02/14/19 10:00 02/21/19 14:21 Sinemet 25-100 PO 1 tab Q8HR BERNARDINO Administration Carvedilol 3.125 mg 02/15/19 09:00 02/21/19 09:06 Coreg PO 3.125 mg DAILY BERNARDINO Administration Cholecalciferol 1,000 units 02/15/19 09:00 02/21/19 09:06 Vitamin D3 PO 1,000 units DAILY BERNARDINO Administration Diphenhydramine HCl 25 mg 02/17/19 20:02 02/17/19 20:45 Benadryl PO 25 mg HSPRN PRN Administration Itching & Insomnia Donepezil HCl 5 mg 02/01/19 09:00 02/21/19 09:06 Aricept PO 5 mg DAILY BERNARDINO Administration Dutasteride 0.5 mg 02/14/19 09:00 02/21/19 09:06 Avodart PO 0.5 mg DAILY BERNARDINO Administration Famotidine 20 mg 02/06/19 09:00 02/21/19 09:06 Pepcid PO 20 mg DAILY BERNARDINO Administration Finasteride 5 mg 02/14/19 09:00 02/21/19 09:06 Proscar PO 5 mg DAILY BERNARDINO Administration Folic Acid 1 mg 02/14/19 09:00 02/21/19 09:06 Folvite PO 1 mg DAILY BERNARDINO Administration Gabapentin 100 mg 02/14/19 09:00 02/21/19 14:21 Neurontin PO 100 mg TID BERNARDINO Administration Polyethylene Glycol 17 gm 02/14/19 09:00 02/21/19 09:08 Miralax PO 17 gm DAILY BERNARDINO Administration Potassium Chloride 20 meq 02/14/19 09:00 02/21/19 09:07 K-Dur PO 20 meq DAILY BERNARDINO Administration Saccharomyces Boulardii 250 mg 02/12/19 09:00 02/21/19 09:07 Florastor PO 250 mg DAILY BERNARDINO Administration Sertraline HCl 50 mg 02/01/19 09:00 02/21/19 09:10 Zoloft PO 50 mg DAILY BERNARDINO Administration Simvastatin 40 mg 02/14/19 21:00 02/20/19 20:30 Zocor PO 40 mg HS BERNARDINO Administration Sodium Chloride 10 ml 01/31/19 16:05 02/17/19 08:05 Flush - Normal Saline IVF 10 ml PRN PRN Administration Saline Flush Tamsulosin HCl 0.4 mg 01/31/19 21:00 02/21/19 09:07 Flomax PO 0.4 mg BID BERNARDINO Administration - Exam General Appearance: NAD, awake alert Eye: PERRL, anicteric sclera ENT: normocephalic atraumatic, no oropharyngeal lesions Neck: supple, symmetric, no JVD, no thyromegaly, no lymphadenopathy Heart: RRR, no murmur, no gallops, no rubs, normal peripheral pulses Respiratory: no rales, no ronchi Respiratory - other findings: diminished in bases bilat Gastrointestinal: soft, non-tender, non-distended, normal bowel sounds, no palpable masses Gastrointestinal - other findings: obese Extremities: no cyanosis, no clubbing Skin: normal turgor, no lesions Neurological: CN's grossly intact, no new deficit Musculoskeletal: normal tone, generalized weakness Psychiatric: oriented to person Hosp A/P (1) Ureterolithiasis Code(s): N20.1 - CALCULUS OF URETER Status: Acute (2) Acute on chronic renal failure Code(s): N17.9 - ACUTE KIDNEY FAILURE, UNSPECIFIED; N18.9 - CHRONIC KIDNEY DISEASE, UNSPECIFIED Status: Acute Qualifiers: Acute renal failure type: with other specified pathological lesion Chronic kidney disease stage: stage 3 (moderate) Qualified Code(s): N17.8 - Other acute kidney failure; N18.3 - Chronic kidney disease, stage 3 (moderate) (3) Anemia in CKD (chronic kidney disease) Code(s): N18.9 - CHRONIC KIDNEY DISEASE, UNSPECIFIED; D63.1 - ANEMIA IN CHRONIC KIDNEY DISEASE Status: Acute (4) Physical deconditioning Code(s): R53.81 - OTHER MALAISE Status: Chronic (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, FUSED AND HORSESHOE KIDNEY Status: Chronic (6) Obesity (BMI 30-39.9) Code(s): E66.9 - OBESITY, UNSPECIFIED Status: Chronic (7) Asthma Code(s): J45.909 - UNSPECIFIED ASTHMA, UNCOMPLICATED Status: Chronic Qualifiers: Asthma severity: mild Asthma persistence: intermittent Asthma complication type: uncomplicated Qualified Code(s): J45.20 - Mild intermittent asthma, uncomplicated - Plan plan discussed w/ family, PT/OT, social media assistant, out of bed/ambulate Stable overall Continue PT/OT for mobilization Plan for Lithotripsy in approx 1 week Continue Avodart/Proscar DVT ppx Avoid nephrotoxic meds and limit contrast exposure SNF options pending
[2019-02-21] MEDS: Simvastatin 40 MG TAB PO SCH (20:31)
[2019-02-22] MEDS: PROVENTIL INHALER 6.7 G (200 INHALATIONS) INH SCH ×4 (01:04→20:04)
[2019-02-22] MEDS: Carbidopa/Levodopa 25-100 mg Tablet PO SCH ×3 (05:29→21:26)
[2019-02-22] MEDS: Famotidine 20 MG TAB PO SCH (08:45)
[2019-02-22] MEDS: Saccharomyces boulardii 250 MG CAP PO SCH (08:45)
[2019-02-22] MEDS: Dutasteride 0.5 MG CAP PO SCH (08:45)
[2019-02-22] MEDS: Allopurinol 100 MG TAB PO SCH (08:45)
[2019-02-22] MEDS: Folic Acid 1 MG TAB PO SCH (08:46)
[2019-02-22] MEDS: Donepezil HCl 5 MG TAB PO SCH (08:46)
[2019-02-22] MEDS: Carvedilol 3.125 MG TAB PO SCH (08:46)
[2019-02-22] MEDS: Tamsulosin HCl 0.4 MG CAP PO SCH ×2 (08:46→20:10)
[2019-02-22] MEDS: Potassium Chloride 20 MEQ TAB PO SCH (08:46)
[2019-02-22] MEDS: Polyethylene Glycol 3350 17 GM Packet PO SCH (08:46)
[2019-02-22] MEDS: Finasteride 5 MG TAB PO SCH (08:46)
[2019-02-22] MEDS: Gabapentin 100 MG CAP PO SCH ×3 (08:46→20:10)
--- NOTE | 2019-02-22 09:47 | PDOC.HOSPP ---
- Subjective Encounter Date: 02/22/19 Subjective: f/u ureterolithiasis s/p ureteral stend following calyceal rupture. Laser lithotripsy planned for early next week. Originally admitted for urosepsis and UZMA, both since resolved. Currently pending SNF options while waiting for lithotripsy. On today's encounter, has no new complaints. - Objective Vital Signs & Weight: Vital Signs (12 hours) Pulse Resp Pulse Ox 02/22/19 06:39 73 12 02/22/19 01:04 70 12 93 L Weight Admit Weight 100.6 kg Weight 104.865 kg Most Recent Monitor Data Heart Rate from ECG 94 NIBP 123/69 NIBP BP-Mean 87 Respiration from ECG 21 SpO2 98 I&O: 02/21/19 02/22/19 02/23/19 06:59 06:59 06:59 Intake Total 400 1550 Output Total 500 1870 Balance -100 -320 Result Diagrams: 02/14/19 06:36 02/19/19 03:25 Additional Labs: Cr back to approx baseline 1.6 Microbiology 02/14/19 15:50 Stool C. difficile GDH Antigen & Toxins - Final Laboratory Tests 02/07/19 02/08/19 02/09/19 03:50 03:30 04:50 Hgb 7.3 L 9.2 L 8.6 L Potassium Creatinine 02/10/19 02/13/19 02/13/19 04:45 05:50 05:50 Hgb 8.7 L 8.6 L Potassium 3.5 Creatinine 2.14 H 02/14/19 06:36 Hgb Potassium 3.3 L Creatinine 1.97 H Hospitalist ROS - Review of Systems Constitutional: denies: fever, chills, sweats, weakness ENT: denies: nose discharge, nose congestion, throat pain Respiratory: denies: cough, shortness of breath, wheezing Cardiovascular: denies: chest pain, palpitations, edema, light headedness Gastrointestinal: reports: abdominal pain (c/o upper and mid abd pain, unchanged from previous encounters). denies: nausea, vomitting, diarrhea, constipation Genitourinary: reports: other (Freeman catheter present). denies: dysuria, frequency Neurological: denies: weakness, numbness, confusion - Medication Medications: Active Medications Generic Name Dose Route Start Last Admin Trade Name Freq PRN Reason Stop Dose Admin Acetaminophen 650 mg 01/31/19 04:25 02/21/19 14:21 Tylenol PO 650 mg Q4H PRN Administration Headache/Fever/Mild Pain (1-3) Albuterol Sulfate 2 puff 02/17/19 19:00 02/22/19 06:39 Proventil Hfa INH 2 puff [id number] BERNARDINO Administration Allopurinol 100 mg 02/14/19 09:00 02/22/19 08:45 Zyloprim PO 100 mg DAILY BERNARDINO Administration Carbidopa/Levodopa 1 tab 02/14/19 10:00 02/22/19 05:29 Sinemet 25-100 PO 1 tab Q8HR BERNARDINO Administration Carvedilol 3.125 mg 02/15/19 09:00 02/22/19 08:46 Coreg PO 3.125 mg DAILY BERNARDINO Administration Cholecalciferol 1,000 units 02/15/19 09:00 02/22/19 08:46 Vitamin D3 PO 1,000 units DAILY BERNARDINO Administration Diphenhydramine HCl 25 mg 02/17/19 20:02 02/17/19 20:45 Benadryl PO 25 mg HSPRN PRN Administration Itching & Insomnia Donepezil HCl 5 mg 02/01/19 09:00 02/22/19 08:46 Aricept PO 5 mg DAILY BERNARDINO Administration Dutasteride 0.5 mg 02/14/19 09:00 02/22/19 08:45 Avodart PO 0.5 mg DAILY BERNARDINO Administration Famotidine 20 mg 02/06/19 09:00 02/22/19 08:45 Pepcid PO 20 mg DAILY BERNARDINO Administration Finasteride 5 mg 02/14/19 09:00 02/22/19 08:46 Proscar PO 5 mg DAILY BERNARDINO Administration Folic Acid 1 mg 02/14/19 09:00 02/22/19 08:46 Folvite PO 1 mg DAILY BERNARDINO Administration Gabapentin 100 mg 02/14/19 09:00 02/22/19 08:46 Neurontin PO 100 mg TID BERNARDINO Administration Polyethylene Glycol 17 gm 02/14/19 09:00 02/22/19 08:46 Miralax PO 17 gm DAILY BERNARDINO Administration Potassium Chloride 20 meq 02/14/19 09:00 02/22/19 08:46 K-Dur PO 20 meq DAILY BERNARDINO Administration Saccharomyces Boulardii 250 mg 02/12/19 09:00 02/22/19 08:45 Florastor PO 250 mg DAILY BERNARDINO Administration Sertraline HCl 50 mg 02/01/19 09:00 02/22/19 08:45 Zoloft PO 50 mg DAILY BERNARDINO Administration Simvastatin 40 mg 02/14/19 21:00 02/21/19 20:31 Zocor PO 40 mg HS BERNARDINO Administration Sodium Chloride 10 ml 01/31/19 16:05 02/17/19 08:05 Flush - Normal Saline IVF 10 ml PRN PRN Administration Saline Flush Tamsulosin HCl 0.4 mg 01/31/19 21:00 02/22/19 08:46 Flomax PO 0.4 mg BID BERNARDINO Administration - Exam General Appearance: NAD, awake alert General - other findings: talkative, responsive Eye: PERRL, anicteric sclera ENT: normocephalic atraumatic, no oropharyngeal lesions, moist mucosa Neck: supple, symmetric, no JVD, no thyromegaly Heart: RRR, no murmur, no gallops, no rubs Respiratory: CTAB, no wheezes, no rales, no ronchi, normal chest expansion, no tachypnea Gastrointestinal: soft, normal bowel sounds, no palpable masses, tender to palpation (epigastric and mid abdominal tenderness with palpation). negative: no guarding, no rigidity Extremities: no cyanosis, no clubbing, no edema Skin: normal turgor Neurological: normal sensation to touch, no weakness, no focal deficits Musculoskeletal: normal tone, normal strength Psychiatric: A&O x 3 Hosp A/P (1) Ureterolithiasis Code(s): N20.1 - CALCULUS OF URETER Status: Acute Plan: Laser lithotripsy planned for early next week (2) Acute on chronic renal failure Code(s): N17.9 - ACUTE KIDNEY FAILURE, UNSPECIFIED; N18.9 - CHRONIC KIDNEY DISEASE, UNSPECIFIED Status: Acute Qualifiers: Acute renal failure type: with other specified pathological lesion Chronic kidney disease stage: stage 3 (moderate) Qualified Code(s): N17.8 - Other acute kidney failure; N18.3 - Chronic kidney disease, stage 3 (moderate) Plan: UZMA resolved to baseline renal function (3) Anemia in CKD (chronic kidney disease) Code(s): N18.9 - CHRONIC KIDNEY DISEASE, UNSPECIFIED; D63.1 - ANEMIA IN CHRONIC KIDNEY DISEASE Status: Acute Plan: s/p 2u PRBC's (4) Physical deconditioning Code(s): R53.81 - OTHER MALAISE Status: Chronic Plan: PT/OT/OOB (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 O2 sats and lung auscultation remain improved. - Plan freeman catheter, PT/OT, social welfare administrator, respiratory therapy, out of bed/ambulate , DVT proph w/SCDs Stable currently Continue supportive mgmt OOB/PT for mobilization Await lithotripsy 02/26/19
[2019-02-22] MEDS: Simvastatin 40 MG TAB PO SCH (20:10)
[2019-02-23] MEDS: PROVENTIL INHALER 6.7 G (200 INHALATIONS) INH SCH ×5 (01:52→23:16)
[2019-02-23] MEDS: Carbidopa/Levodopa 25-100 mg Tablet PO SCH ×3 (05:43→20:55)
[2019-02-23] MEDS: Potassium Chloride 20 MEQ TAB PO SCH (08:19)
[2019-02-23] MEDS: Folic Acid 1 MG TAB PO SCH (08:19)
[2019-02-23] MEDS: Finasteride 5 MG TAB PO SCH (08:19)
[2019-02-23] MEDS: Famotidine 20 MG TAB PO SCH (08:19)
[2019-02-23] MEDS: Saccharomyces boulardii 250 MG CAP PO SCH (08:19)
[2019-02-23] MEDS: Tamsulosin HCl 0.4 MG CAP PO SCH ×2 (08:20→20:54)
[2019-02-23] MEDS: Gabapentin 100 MG CAP PO SCH ×3 (08:20→20:54)
[2019-02-23] MEDS: Dutasteride 0.5 MG CAP PO SCH (08:20)
[2019-02-23] MEDS: Carvedilol 3.125 MG TAB PO SCH (08:20)
[2019-02-23] MEDS: Allopurinol 100 MG TAB PO SCH (08:20)
[2019-02-23] MEDS: Donepezil HCl 5 MG TAB PO SCH (08:20)
[2019-02-23] MEDS: Polyethylene Glycol 3350 17 GM Packet PO SCH (08:20)
[2019-02-23] MEDS: Acetaminophen 325 MG TAB PO PRN ×3 (12:13→23:26)
--- NOTE | 2019-02-23 15:47 | PDOC.HOSPP ---
- Subjective Encounter Date: 02/23/19 Encounter Time: 15:35 Subjective: f/u for deconditioning, ureterolithiasis. Feels ok overall but generally weak. Some abd cramping but reports 2 BM's. Appetite ok. No fever. - Objective Vital Signs & Weight: Vital Signs (12 hours) Temp Pulse Resp BP Pulse Ox 02/23/19 12:40 77 22 H 02/23/19 08:00 98.4 F 70 20 113/69 95 Weight Admit Weight 221 lb 12.56 oz Weight 231 lb 3 oz Most Recent Monitor Data Heart Rate from ECG 94 NIBP 123/69 NIBP BP-Mean 87 Respiration from ECG 21 SpO2 98 I&O: 02/22/19 02/23/19 02/24/19 06:59 06:59 06:59 Intake Total 1550 1430 Output Total 1870 1650 Balance -320 -220 Result Diagrams: 02/14/19 06:36 02/19/19 03:25 Additional Labs: Microbiology 02/14/19 15:50 Stool C. difficile GDH Antigen & Toxins - Final Laboratory Tests 02/07/19 02/08/19 02/09/19 03:50 03:30 04:50 Hgb 7.3 L 9.2 L 8.6 L Potassium Creatinine 02/10/19 02/13/19 02/13/19 04:45 05:50 05:50 Hgb 8.7 L 8.6 L Potassium 3.5 Creatinine 2.14 H 02/14/19 06:36 Hgb Potassium 3.3 L Creatinine 1.97 H Hospitalist ROS - Medication Medications: Active Medications Generic Name Dose Route Start Last Admin Trade Name Freq PRN Reason Stop Dose Admin Acetaminophen 650 mg 01/31/19 04:25 02/23/19 12:13 Tylenol PO 650 mg Q4H PRN Administration Headache/Fever/Mild Pain (1-3) Albuterol Sulfate 2 puff 02/17/19 19:00 02/23/19 12:40 Proventil Hfa INH 2 puff [id number] BERNARDINO Administration Allopurinol 100 mg 02/14/19 09:00 02/23/19 08:20 Zyloprim PO 100 mg DAILY BERNARDINO Administration Carbidopa/Levodopa 1 tab 02/14/19 10:00 02/23/19 05:43 Sinemet 25-100 PO 1 tab Q8HR BERNARDINO Administration Carvedilol 3.125 mg 02/15/19 09:00 02/23/19 08:20 Coreg PO 3.125 mg DAILY BERNARDINO Administration Cholecalciferol 1,000 units 02/15/19 09:00 02/23/19 08:19 Vitamin D3 PO 1,000 units DAILY BERNARDINO Administration Diphenhydramine HCl 25 mg 02/17/19 20:02 02/17/19 20:45 Benadryl PO 25 mg HSPRN PRN Administration Itching & Insomnia Donepezil HCl 5 mg 02/01/19 09:00 02/23/19 08:20 Aricept PO 5 mg DAILY BERNARDINO Administration Dutasteride 0.5 mg 02/14/19 09:00 02/23/19 08:20 Avodart PO 0.5 mg DAILY BERNARDINO Administration Famotidine 20 mg 02/06/19 09:00 02/23/19 08:19 Pepcid PO 20 mg DAILY BERNARDINO Administration Finasteride 5 mg 02/14/19 09:00 02/23/19 08:19 Proscar PO 5 mg DAILY BERNARDINO Administration Folic Acid 1 mg 02/14/19 09:00 02/23/19 08:19 Folvite PO 1 mg DAILY BERNARDINO Administration Gabapentin 100 mg 02/14/19 09:00 02/23/19 08:20 Neurontin PO 100 mg TID BERNARDINO Administration Polyethylene Glycol 17 gm 02/14/19 09:00 02/23/19 08:20 Miralax PO 17 gm DAILY BERNARDINO Administration Potassium Chloride 20 meq 02/14/19 09:00 02/23/19 08:19 K-Dur PO 20 meq DAILY BERNARDINO Administration Saccharomyces Boulardii 250 mg 02/12/19 09:00 02/23/19 08:19 Florastor PO 250 mg DAILY BERNARDINO Administration Sertraline HCl 50 mg 02/01/19 09:00 02/23/19 08:19 Zoloft PO 50 mg DAILY BERNARDINO Administration Simvastatin 40 mg 02/14/19 21:00 02/22/19 20:10 Zocor PO 40 mg HS BERNARDINO Administration Sodium Chloride 10 ml 01/31/19 16:05 02/17/19 08:05 Flush - Normal Saline IVF 10 ml PRN PRN Administration Saline Flush Tamsulosin HCl 0.4 mg 01/31/19 21:00 02/23/19 08:20 Flomax PO 0.4 mg BID BERNARDINO Administration - Exam General Appearance: NAD, awake alert Eye: PERRL, anicteric sclera ENT: normocephalic atraumatic, no oropharyngeal lesions Neck: supple, symmetric, no JVD, no thyromegaly Heart: RRR, no murmur, no gallops, no rubs, normal peripheral pulses Respiratory: CTAB, no wheezes, no rales, no ronchi Gastrointestinal: soft, non-tender, non-distended, normal bowel sounds, no palpable masses Extremities: no cyanosis, 1+ LE edema Skin: normal turgor, no lesions Neurological: CN's grossly intact, no new deficit Musculoskeletal: normal tone Psychiatric: oriented to person, oriented to place Hosp A/P (1) Ureterolithiasis Code(s): N20.1 - CALCULUS OF URETER Status: Acute (2) Acute on chronic renal failure Code(s): N17.9 - ACUTE KIDNEY FAILURE, UNSPECIFIED; N18.9 - CHRONIC KIDNEY DISEASE, UNSPECIFIED Status: Acute Qualifiers: Acute renal failure type: with other specified pathological lesion Chronic kidney disease stage: stage 3 (moderate) Qualified Code(s): N17.8 - Other acute kidney failure; N18.3 - Chronic kidney disease, stage 3 (moderate) (3) Anemia in CKD (chronic kidney disease) Code(s): N18.9 - CHRONIC KIDNEY DISEASE, UNSPECIFIED; D63.1 - ANEMIA IN CHRONIC KIDNEY DISEASE Status: Acute (4) Physical deconditioning Code(s): R53.81 - OTHER MALAISE Status: Chronic (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
[2019-02-23] MEDS: Simvastatin 40 MG TAB PO SCH (20:54)
[2019-02-23] MEDS: diphenhydrAMINE 25 MG CAP PO PRN (20:54)
[2019-02-24] MEDS: Carbidopa/Levodopa 25-100 mg Tablet PO SCH ×3 (05:58→21:03)
[2019-02-24] MEDS: Allopurinol 100 MG TAB PO SCH (07:51)
[2019-02-24] MEDS: Saccharomyces boulardii 250 MG CAP PO SCH (07:51)
[2019-02-24] MEDS: Potassium Chloride 20 MEQ TAB PO SCH (07:51)
[2019-02-24] MEDS: Donepezil HCl 5 MG TAB PO SCH (07:52)
[2019-02-24] MEDS: Gabapentin 100 MG CAP PO SCH ×3 (07:52→21:03)
[2019-02-24] MEDS: Finasteride 5 MG TAB PO SCH (07:52)
[2019-02-24] MEDS: Carvedilol 3.125 MG TAB PO SCH (07:52)
[2019-02-24] MEDS: Famotidine 20 MG TAB PO SCH (07:52)
[2019-02-24] MEDS: Folic Acid 1 MG TAB PO SCH (07:52)
[2019-02-24] MEDS: Tamsulosin HCl 0.4 MG CAP PO SCH ×2 (07:52→21:03)
[2019-02-24] MEDS: Polyethylene Glycol 3350 17 GM Packet PO SCH (07:53)
[2019-02-24] MEDS: Dutasteride 0.5 MG CAP PO SCH (08:21)
[2019-02-24] MEDS: PROVENTIL INHALER 6.7 G (200 INHALATIONS) INH SCH ×3 (08:24→19:51)
--- NOTE | 2019-02-24 13:36 | PDOC.HOSPP ---
- Subjective Encounter Date: 02/24/19 Encounter Time: 13:30 Subjective: f/u for ureterolithiasis with plans for laser lithotripsy on 02/26/19. Feels weak and fatigued. Appetite ok. - Objective Vital Signs & Weight: Vital Signs (12 hours) Temp Pulse Resp BP Pulse Ox 02/24/19 08:24 71 14 94 L 02/24/19 08:00 98 F 80 16 122/60 93 L Weight Admit Weight 221 lb 12.56 oz Weight 231 lb 3 oz Most Recent Monitor Data Heart Rate from ECG 94 NIBP 123/69 NIBP BP-Mean 87 Respiration from ECG 21 SpO2 98 I&O: 02/23/19 02/24/19 02/25/19 06:59 06:59 06:59 Intake Total 1430 1690 Output Total 1650 650 Balance -220 1040 Result Diagrams: 02/14/19 06:36 02/19/19 03:25 Additional Labs: Microbiology 02/14/19 15:50 Stool C. difficile GDH Antigen & Toxins - Final Laboratory Tests 02/07/19 02/08/19 02/09/19 03:50 03:30 04:50 Hgb 7.3 L 9.2 L 8.6 L Potassium Creatinine 02/10/19 02/13/19 02/13/19 04:45 05:50 05:50 Hgb 8.7 L 8.6 L Potassium 3.5 Creatinine 2.14 H 02/14/19 06:36 Hgb Potassium 3.3 L Creatinine 1.97 H Hospitalist ROS - Medication Medications: Active Medications Generic Name Dose Route Start Last Admin Trade Name Freq PRN Reason Stop Dose Admin Acetaminophen 650 mg 01/31/19 04:25 02/23/19 23:26 Tylenol PO 650 mg Q4H PRN Administration Headache/Fever/Mild Pain (1-3) Albuterol Sulfate 2 puff 02/17/19 19:00 02/24/19 08:24 Proventil Hfa INH 2 puff [id number] BERNARDINO Administration Allopurinol 100 mg 02/14/19 09:00 02/24/19 07:51 Zyloprim PO 100 mg DAILY BERNARDINO Administration Carbidopa/Levodopa 1 tab 02/14/19 10:00 02/24/19 05:58 Sinemet 25-100 PO 1 tab Q8HR BERNARDINO Administration Carvedilol 3.125 mg 02/15/19 09:00 02/24/19 07:52 Coreg PO 3.125 mg DAILY BERNARDINO Administration Cholecalciferol 1,000 units 02/15/19 09:00 02/24/19 07:51 Vitamin D3 PO 1,000 units DAILY BERNARDINO Administration Diphenhydramine HCl 25 mg 02/17/19 20:02 02/23/19 20:54 Benadryl PO 25 mg HSPRN PRN Administration Itching & Insomnia Donepezil HCl 5 mg 02/01/19 09:00 02/24/19 07:52 Aricept PO 5 mg DAILY BERNARDINO Administration Dutasteride 0.5 mg 02/14/19 09:00 02/24/19 08:21 Avodart PO 0.5 mg DAILY BERNARDINO Administration Famotidine 20 mg 02/06/19 09:00 02/24/19 07:52 Pepcid PO 20 mg DAILY BERNARDINO Administration Finasteride 5 mg 02/14/19 09:00 02/24/19 07:52 Proscar PO 5 mg DAILY BERNARDINO Administration Folic Acid 1 mg 02/14/19 09:00 02/24/19 07:52 Folvite PO 1 mg DAILY BERNARDINO Administration Gabapentin 100 mg 02/14/19 09:00 02/24/19 07:52 Neurontin PO 100 mg TID BERNARDINO Administration Polyethylene Glycol 17 gm 02/14/19 09:00 02/24/19 07:53 Miralax PO Not Given DAILY BERNARDINO Potassium Chloride 20 meq 02/14/19 09:00 02/24/19 07:51 K-Dur PO 20 meq DAILY BERNARDINO Administration Saccharomyces Boulardii 250 mg 02/12/19 09:00 02/24/19 07:51 Florastor PO 250 mg DAILY BERNARDINO Administration Sertraline HCl 50 mg 02/01/19 09:00 02/24/19 07:51 Zoloft PO 50 mg DAILY BERNARDINO Administration Simvastatin 40 mg 02/14/19 21:00 02/23/19 20:54 Zocor PO 40 mg HS BERNARDINO Administration Sodium Chloride 10 ml 01/31/19 16:05 02/17/19 08:05 Flush - Normal Saline IVF 10 ml PRN PRN Administration Saline Flush Tamsulosin HCl 0.4 mg 01/31/19 21:00 02/24/19 07:52 Flomax PO 0.4 mg BID BERNARDINO Administration - Exam General Appearance: NAD, awake alert Eye: PERRL, anicteric sclera ENT: normocephalic atraumatic, no oropharyngeal lesions Neck: supple, symmetric, no JVD, no thyromegaly, no lymphadenopathy Heart: RRR, no murmur, no gallops, no rubs Respiratory: CTAB, no wheezes, no rales, no ronchi Respiratory - other findings: diminished in bases Gastrointestinal: soft, non-tender, non-distended, normal bowel sounds, no palpable masses Extremities: no cyanosis, no clubbing Skin: normal turgor Neurological: CN's grossly intact, no focal deficits, no new deficit Musculoskeletal: generalized weakness Hosp A/P (1) Ureterolithiasis Code(s): N20.1 - CALCULUS OF URETER Status: Acute (2) Acute on chronic renal failure Code(s): N17.9 - ACUTE KIDNEY FAILURE, UNSPECIFIED; N18.9 - CHRONIC KIDNEY DISEASE, UNSPECIFIED Status: Acute Qualifiers: Acute renal failure type: with other specified pathological lesion Chronic kidney disease stage: stage 3 (moderate) Qualified Code(s): N17.8 - Other acute kidney failure; N18.3 - Chronic kidney disease, stage 3 (moderate) (3) Anemia in CKD (chronic kidney disease) Code(s): N18.9 - CHRONIC KIDNEY DISEASE, UNSPECIFIED; D63.1 - ANEMIA IN CHRONIC KIDNEY DISEASE Status: Acute (4) Physical deconditioning Code(s): R53.81 - OTHER MALAISE Status: Chronic (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, FUSED AND HORSESHOE KIDNEY Status: Chronic (6) Obesity (BMI 30-39.9) Code(s): E66.9 - OBESITY, UNSPECIFIED Status: Chronic (7) Asthma Code(s): J45.909 - UNSPECIFIED ASTHMA, UNCOMPLICATED Status: Chronic Qualifiers: Asthma severity: mild Asthma persistence: intermittent Asthma complication type: uncomplicated Qualified Code(s): J45.20 - Mild intermittent asthma, uncomplicated - Plan PT/OT, nursing home social worker, out of bed/ambulate, DVT proph w/SCDs Stable currently Continue supportive mgmt OOB/PT for mobilization Await lithotripsy 02/26/19 SNF/NH options for d/c Continue Avodart/Proscar
[2019-02-24] MEDS: Acetaminophen 325 MG TAB PO PRN (21:02)
[2019-02-24] MEDS: diphenhydrAMINE 25 MG CAP PO PRN (21:03)
[2019-02-24] MEDS: Simvastatin 40 MG TAB PO SCH (21:03)
--- NOTE | 2019-02-24 21:31 | PDOC.EVN ---
Event Note - Event Note Event Note: Notfied by RN, patient complaining of penile pain. Has freeman cathetery in. Patient seen and examined. He described a burning sensation, has catheter in place with turbid output. No hematuria. States it started this morning and currently 7/10 in severity. Has been constant. On exam had suprapubic discomfort with light palptation, reports feeling his bladder is full. Was already given Tylenol 650 mg PO without relief. BP currently 114 systolic. Will give Tramadol 50 mg PO. No labs done since 2 days ago. Will repeat CBC and CMP. No morphine given BP on lower side and also patient refusing. Bladder scan requested to assess for urine retention, catheter potentially clogged.
[2019-02-24 21:52] LABS: #Basophils 0.1 thou/uL (0.0-0.2); #Eosinphils 0.2 thou/uL (0.0-0.7); #Lymphocytes 1.6 thou/uL (1.20-3.40); #Monocytes 0.6 thou/uL (0.11-0.59); #Neutrophils 3.9 thou/uL (1.40-6.50); %Basophils 0.8 % (0.0-1.0); %Eosinophils 3.8 % (0.0-10.0); %Lymphocytes 24.6 % (21.0-51.0); %Monocytes 9.7 % (0.0-10.0); %Neutrophils 61.1 % (42.0-75.0); Hemoglobin 9.1 g/dL (14.0-18.0); Mean Corpuscular HGB CONC 33.3 g/dL (32.0-36.0); Mean Platelet Volume 6.7 fL (7.4-10.4); Platelet Count 295 thou/uL (130-400); RBC Distribution Width 14.3 % (11.5-14.5); Red Blood Cell (RBC) Count 2.75 mill/uL (4.70-6.10); White Blood Cell (WBC) Count 6.4 thou/uL (4.8-10.8)
[2019-02-24] MEDS: traMADol HCl 50 MG TAB PO PRN (21:58)
[2019-02-24 22:14] LABS: ALT (SGPT) Less than 7 U/L (8-55); AST (SGOT) 12 U/L (5-34); Albumin 2.5 g/dL (3.4-4.8); Alkaline Phosphatase 80 U/L (40-150); Anion Gap 9 mmol/L (10-20); BUN (Urea Nitrogen) 24 mg/dL (8.4-25.7); Bilirubin, Total 0.4 mg/dL (0.2-1.2); Calc. Creatinine Clearance 48 mL/min (70-130); Calcium 8.5 mg/dL (7.8-10.44); Carbon Dioxide 24 mmol/L (23-31); Chloride 112 mmol/L (98-107); Estimated GFR-MDRD 40; Glucose 108 mg/dL (83-110); Potassium 4.2 mmol/L (3.5-5.1); Protein, Total 5.5 g/dL (5.8-8.1); Sodium 141 mmol/L (136-145)
[2019-02-25] MEDS: PROVENTIL INHALER 6.7 G (200 INHALATIONS) INH SCH ×2 (00:43→07:23)
[2019-02-25] MEDS: Carbidopa/Levodopa 25-100 mg Tablet PO SCH ×3 (06:14→21:10)
[2019-02-25] MEDS: traMADol HCl 50 MG TAB PO PRN ×3 (06:18→20:34)
[2019-02-25] MEDS ORDERED: Meropenem 2 GM in Admixture Fee 1 EACH IVPB SCH (08:00)
[2019-02-25] MEDS: Carvedilol 3.125 MG TAB PO SCH (08:08)
[2019-02-25] MEDS: Dutasteride 0.5 MG CAP PO SCH (08:08)
[2019-02-25] MEDS: Polyethylene Glycol 3350 17 GM Packet PO SCH (08:08)
[2019-02-25] MEDS: Potassium Chloride 20 MEQ TAB PO SCH (08:08)
[2019-02-25] MEDS: Gabapentin 100 MG CAP PO SCH ×3 (08:09→20:33)
[2019-02-25] MEDS: Saccharomyces boulardii 250 MG CAP PO SCH (08:09)
[2019-02-25] MEDS: Folic Acid 1 MG TAB PO SCH (08:09)
[2019-02-25] MEDS: Famotidine 20 MG TAB PO SCH (08:09)
[2019-02-25] MEDS: Allopurinol 100 MG TAB PO SCH (08:09)
[2019-02-25] MEDS: Tamsulosin HCl 0.4 MG CAP PO SCH ×2 (08:09→20:33)
[2019-02-25] MEDS: Donepezil HCl 5 MG TAB PO SCH (08:09)
[2019-02-25] MEDS: Finasteride 5 MG TAB PO SCH (08:09)
--- NOTE | 2019-02-25 08:26 | PRG ---
DATE OF SERVICE: 02/25/2019 SUBJECTIVE: The patient without complaints, doing well. OBJECTIVE: VITAL SIGNS: Stable. He is afebrile. I's and O's of 1690 in, 650 out. Urine output, turbid yellow with some sediment. ABDOMEN: Morbidly obese, protuberant. No rigidity. No rebound. PERTINENT LABORATORY DATA: On February 24, white count 6.4, hemoglobin 9.1, and platelet 295. Yesterday, his creatinine is 1.63, which is his baseline. All cultures on this admission have been negative thus far, previously on meropenem and vancomycin. IMPRESSION AND PLAN: An 88-year-old male with past medical history of, 1. Horseshoe kidney, previously followed by Dr. Mcknight. 2. History of large bilateral stone burden. 3. Presented with urosepsis, septic shock, renal failure secondary to high-grade right ureteral obstruction due to ureteral calculi, status post cysto, right ureteral stent on January 31, 2019. 4. Hematuria secondary to high-grade obstruction subcapsular bleed with calyceal rupture, resolved. 5. History of chronic lymphocytic leukemia. 6. History of atrial fibrillation, previously on Eliquis on hold. 7. History of congestive heart failure. 8. Renal failure, resolved. Dialysis discontinued and his renal function is back to his baseline. 9. History of prostate cancer, in remission, on casodex, previously discontinued by Medical Oncology. 10. History of benign prostatic hyperplasia, on cystoscopy, on Flomax and Avodart. RECOMMENDATIONS: The patient will be n.p.o. after midnight for ureteroscopy, laser lithotripsy of his obstructing ureteral stone component tomorrow. We will obtain staging CT today, n.p.o. after midnight, I will start his prophylactic antibiotics today of meropenem and vancomycin, which I previously conferenced with Dr. Alfred to proceed. I previously spoke with Dr. Shin, the patient is cleared to proceed with his ureteroscopy, laser lithotripsy tomorrow as planned. Job ID: [id number] [facility]
[2019-02-25] MEDS: Meropenem 2 GM in Sodium Chloride 0.9% 100 ML IVPB SCH ×2 (08:40→17:23)
[2019-02-25] MEDS: Vancomycin HCl 1 GM in Premix Bag 1 BAG IVPB SCH ×2 (09:29→20:34)
--- NOTE | 2019-02-25 10:56 | CT ---
CT ABDOMEN AND PELVIS WITHOUT CONTRAST: INDICATIONS: Abdominal pain with history of right ureteral obstruction. COMPARISON: 02/02/2019 FINDINGS: Redemonstration of horseshoe kidney with numerous calcifications of each renal moiety and prominent s urrounding perinephric edema, bilaterally. Indwelling stent of the right ureter, terminating at the pelvis of the right renal moiety remains, which has significantly distended, notably at its proximal aspect, since the prior exam and there remains three discrete calcifications along the distal course of the stent, from the distal ureter, which are in a grossly stable configuration and of grossly stab le size. A small locule of air density is present, adjacent the proximal to mid aspect of the right u reteral stent. Redemonstration of heterogeneous density of the horseshoe kidney, again possibly relat ing to a component of subcapsular hemorrhage. Redemonstration of exophytic mixed density cystic stru cture emanating from the anterior aspect of the right renal moiety and stable small exophytic hypode nsity from the superior pole of the left renal moiety, medially. Bilateral pleural fluid with adjace nt consolidation is again demonstrated, slightly progressed in volume. The unenhanced liver, spleen, pancreas, and adrenal glands are grossly stable. Bowel is incompletely evaluated on the basis of th is exam. The urinary bladder is decompressed with an indwelling Benavides catheter, limiting detail. Os seous structures are stable. IMPRESSION: 1. Interval development of moderate proximal right hydroureter since prior examination. There are g rossly stable calcifications along the course of the distal right ureteral stent, within the distal r ight ureter. A small locule of air density is present, adjacent the proximal to mid aspect of the ri ght ureteral stent. 2. Redemonstration of diffuse heterogeneity of horseshoe kidney, which may relate to a component of subcapsular hematoma, given persistent intrinsic density, in addition to numerous calcifications of e ach renal moiety, and persistent exophytic renal densities. POS: [facility]
--- NOTE | 2019-02-25 14:12 | PDOC.HOSPP ---
- Subjective Encounter Date: 02/25/19 Encounter Time: 14:10 Subjective: f/u for ureterolithiasis and R hydronephrosis s/p ureteral stent placement. Awaiting lithotripsy planned for 02/26/19. Had penile pain last pm with indwelling Benavides. - Objective Vital Signs & Weight: Vital Signs (12 hours) Temp Pulse Resp BP Pulse Ox 02/25/19 08:00 96 02/25/19 07:22 78 16 96 02/25/19 07:16 98.0 F 72 20 110/63 93 L Weight Admit Weight 221 lb 12.56 oz Weight 231 lb 3 oz Most Recent Monitor Data Heart Rate from ECG 94 NIBP 123/69 NIBP BP-Mean 87 Respiration from ECG 21 SpO2 98 I&O: 02/24/19 02/25/19 02/26/19 06:59 06:59 06:59 Intake Total 1690 490 Output Total 650 750 Balance 1040 -260 Result Diagrams: 02/24/19 21:45 02/24/19 21:45 Additional Labs: Microbiology 02/14/19 15:50 Stool C. difficile GDH Antigen & Toxins - Final Laboratory Tests 02/07/19 02/08/19 02/09/19 03:50 03:30 04:50 Hgb 7.3 L 9.2 L 8.6 L Potassium Creatinine 02/10/19 02/13/19 02/13/19 04:45 05:50 05:50 Hgb 8.7 L 8.6 L Potassium 3.5 Creatinine 2.14 H 02/14/19 06:36 Hgb Potassium 3.3 L Creatinine 1.97 H Radiology Reviewed by me: Yes (CT abd/pel - R hydroureter, horseshoe kidney, R stent noted) Hospitalist ROS - Medication Medications: Active Medications Generic Name Dose Route Start Last Admin Trade Name Freq PRN Reason Stop Dose Admin Acetaminophen 650 mg 01/31/19 04:25 02/24/19 21:02 Tylenol PO 650 mg Q4H PRN Administration Headache/Fever/Mild Pain (1-3) Albuterol/Ipratropium 3 ml 02/25/19 01:00 02/25/19 07:22 Duoneb NEB 3 ml [id number] BERNARDINO Administration Allopurinol 100 mg 02/14/19 09:00 02/25/19 08:09 Zyloprim PO 100 mg DAILY BERNARDINO Administration Carbidopa/Levodopa 1 tab 02/14/19 10:00 02/25/19 13:01 Sinemet 25-100 PO 1 tab Q8HR BERNARDINO Administration Carvedilol 3.125 mg 02/15/19 09:00 02/25/19 08:08 Coreg PO 3.125 mg DAILY BERNARDINO Administration Cholecalciferol 1,000 units 02/15/19 09:00 02/25/19 08:09 Vitamin D3 PO 1,000 units DAILY BERNARDINO Administration Diphenhydramine HCl 25 mg 02/17/19 20:02 02/24/19 21:03 Benadryl PO 25 mg HSPRN PRN Administration Itching & Insomnia Donepezil HCl 5 mg 02/01/19 09:00 02/25/19 08:09 Aricept PO 5 mg DAILY BERNARDINO Administration Dutasteride 0.5 mg 02/14/19 09:00 02/25/19 08:08 Avodart PO 0.5 mg DAILY BERNARDINO Administration Famotidine 20 mg 02/06/19 09:00 02/25/19 08:09 Pepcid PO Not Given DAILY BERNARDINO Finasteride 5 mg 02/14/19 09:00 02/25/19 08:09 Proscar PO 5 mg DAILY BERNARDINO Administration Folic Acid 1 mg 02/14/19 09:00 02/25/19 08:09 Folvite PO 1 mg DAILY BERNARDINO Administration Gabapentin 100 mg 02/14/19 09:00 02/25/19 08:09 Neurontin PO 100 mg TID BERNARDINO Administration Vancomycin HCl 1 gm/ Device 200 mls @ 200 mls/hr 02/25/19 09:00 02/25/19 09: 29 IVPB 200 mls Q12HR BERNARDINO Administration Meropenem 2 gm/ Sodium 100 mls @ 100 mls/hr 02/25/19 09:00 02/25/19 08:40 Chloride IVPB 100 mls Q8H BERNARDINO Administration Polyethylene Glycol 17 gm 02/14/19 09:00 02/25/19 08:08 Miralax PO Not Given DAILY BERNARDINO Potassium Chloride 20 meq 02/14/19 09:00 02/25/19 08:08 K-Dur PO 20 meq DAILY BERNARDINO Administration Saccharomyces Boulardii 250 mg 02/12/19 09:00 02/25/19 08:09 Florastor PO 250 mg DAILY BERNARDINO Administration Sertraline HCl 50 mg 02/01/19 09:00 02/25/19 08:08 Zoloft PO 50 mg DAILY BERNARDINO Administration Simvastatin 40 mg 02/14/19 21:00 02/24/19 21:03 Zocor PO 40 mg HS BERNARDINO Administration Sodium Chloride 10 ml 01/31/19 16:05 02/17/19 08:05 Flush - Normal Saline IVF 10 ml PRN PRN Administration Saline Flush Tamsulosin HCl 0.4 mg 01/31/19 21:00 02/25/19 08:09 Flomax PO 0.4 mg BID BERNARDINO Administration Tramadol HCl 50 mg 02/24/19 21:27 02/25/19 13:01 Ultram PO 50 mg Q4H PRN Administration Moderate Pain (4-6) - Exam General Appearance: NAD, awake alert Eye: PERRL, anicteric sclera ENT: normocephalic atraumatic, no oropharyngeal lesions Neck: supple, symmetric, no JVD, no thyromegaly, no lymphadenopathy Heart: RRR, no murmur, no gallops, no rubs, normal peripheral pulses Respiratory: CTAB, no wheezes, no rales, no ronchi Gastrointestinal: soft, non-tender, non-distended, normal bowel sounds, no palpable masses Extremities: no cyanosis, no clubbing Skin: normal turgor, no lesions Neurological: CN's grossly intact, no focal deficits, no new deficit Musculoskeletal: generalized weakness Hosp A/P (1) Ureterolithiasis Code(s): N20.1 - CALCULUS OF URETER Status: Acute Plan: s/p R ureteral stent placement with plans fro laser lithotripsy 02/26/19, continue Meropenem/Vancomycin (2) Acute on chronic renal failure Code(s): N17.9 - ACUTE KIDNEY FAILURE, UNSPECIFIED; N18.9 - CHRONIC KIDNEY DISEASE, UNSPECIFIED Status: Acute Qualifiers: Acute renal failure type: with other specified pathological lesion Chronic kidney disease stage: stage 3 (moderate) Qualified Code(s): N17.8 - Other acute kidney failure; N18.3 - Chronic kidney disease, stage 3 (moderate) Plan: Back to baseline eGFR, serial monitoring (3) Anemia in CKD (chronic kidney disease) Code(s): N18.9 - CHRONIC KIDNEY DISEASE, UNSPECIFIED; D63.1 - ANEMIA IN CHRONIC KIDNEY DISEASE Status: Acute (4) Physical deconditioning Code(s): R53.81 - OTHER MALAISE Status: Chronic (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, FUSED AND HORSESHOE KIDNEY Status: Chronic (6) Obesity (BMI 30-39.9) Code(s): E66.9 - OBESITY, UNSPECIFIED Status: Chronic (7) Asthma Code(s): J45.909 - UNSPECIFIED ASTHMA, UNCOMPLICATED Status: Chronic Qualifiers: Asthma severity: mild Asthma persistence: intermittent Asthma complication type: uncomplicated Qualified Code(s): J45.20 - Mild intermittent asthma, uncomplicated - Plan plan discussed w/ family, continue antibiotics, PT/OT, social media marketing specialist, out of bed/ambulate, DVT proph w/SCDs Stable currently Continue supportive mgmt OOB/PT for mobilization Await lithotripsy 02/26/19 Inpt Rehab after lithotripsy Continue Avodart/Proscar
[2019-02-25] MEDS: Simvastatin 40 MG TAB PO SCH (20:33)
[2019-02-26] MEDS: Meropenem 2 GM in Sodium Chloride 0.9% 100 ML IVPB SCH ×3 (00:25→21:46)
[2019-02-26] MEDS: Carbidopa/Levodopa 25-100 mg Tablet PO SCH ×3 (06:34→21:50)
[2019-02-26] MEDS: Finasteride 5 MG TAB PO SCH (08:13)
[2019-02-26] MEDS: Allopurinol 100 MG TAB PO SCH (08:13)
[2019-02-26] MEDS: Potassium Chloride 20 MEQ TAB PO SCH (08:13)
[2019-02-26] MEDS: Gabapentin 100 MG CAP PO SCH ×3 (08:13→21:50)
[2019-02-26] MEDS: Folic Acid 1 MG TAB PO SCH (08:14)
[2019-02-26] MEDS: Donepezil HCl 5 MG TAB PO SCH (08:14)
[2019-02-26] MEDS: Carvedilol 3.125 MG TAB PO SCH (08:14)
[2019-02-26] MEDS: Tamsulosin HCl 0.4 MG CAP PO SCH ×2 (08:14→21:50)
[2019-02-26] MEDS: Saccharomyces boulardii 250 MG CAP PO SCH (08:14)
[2019-02-26] MEDS: Vancomycin HCl 1 GM in Premix Bag 1 BAG IVPB SCH ×2 (08:15→22:40)
[2019-02-26] MEDS: Polyethylene Glycol 3350 17 GM Packet PO SCH (08:15)
[2019-02-26] MEDS ORDERED: Clopidogrel Bisulfate 75 MG TAB ONE ×2 (08:23→08:24)
[2019-02-26] MEDS: Dutasteride 0.5 MG CAP PO SCH (08:27)
[2019-02-26] MEDS: Famotidine 20 MG TAB PO SCH (08:28)
[2019-02-26] MEDS ORDERED: PHENYLEPHRINE-NS 100 MCG/ML 10 ML SYRINGE ONE (11:36)
[2019-02-26] MEDS ORDERED: Ondansetron PF 4 MG/2 ML Vial ONE (11:36)
[2019-02-26] MEDS ORDERED: Rocuronium Bromide 10 MG/ML (10ML VIAL) ONE (11:36)
[2019-02-26] MEDS ORDERED: Lidocaine 1% PF 5 ML VIAL ONE (11:36)
--- NOTE | 2019-02-26 13:46 | PDOC.HOSPP ---
- Subjective Encounter Date: 02/26/19 Encounter Time: 13:45 Subjective: f/u for ureterolithiasis s/p laser lithotripsy today. Receiving Meropenem/ Vancomycin. No new issues reported. - Objective Vital Signs & Weight: Vital Signs (12 hours) Temp Pulse Resp BP BP Pulse Ox 02/26/19 08:11 98.0 F 87 20 121/54 L 91 L 02/26/19 08:00 91 L 02/26/19 07:08 69 16 96 02/26/19 06:22 67 113/57 L Weight Admit Weight 221 lb 12.56 oz Weight 231 lb 3 oz Most Recent Monitor Data Heart Rate from ECG 94 NIBP 123/69 NIBP BP-Mean 87 Respiration from ECG 21 SpO2 98 I&O: 02/25/19 02/26/19 02/27/19 06:59 06:59 06:59 Intake Total 490 320 Output Total 750 550 Balance -260 -230 Result Diagrams: 02/24/19 21:45 02/24/19 21:45 Additional Labs: Microbiology 02/14/19 15:50 Stool C. difficile GDH Antigen & Toxins - Final Laboratory Tests 02/07/19 02/08/19 02/09/19 03:50 03:30 04:50 Hgb 7.3 L 9.2 L 8.6 L Potassium Creatinine 02/10/19 02/13/19 02/13/19 04:45 05:50 05:50 Hgb 8.7 L 8.6 L Potassium 3.5 Creatinine 2.14 H 02/14/19 06:36 Hgb Potassium 3.3 L Creatinine 1.97 H Hospitalist ROS - Medication Medications: Active Medications Generic Name Dose Route Start Last Admin Trade Name Freq PRN Reason Stop Dose Admin Acetaminophen 650 mg 01/31/19 04:25 02/24/19 21:02 Tylenol PO 650 mg Q4H PRN Administration Headache/Fever/Mild Pain (1-3) Albuterol/Ipratropium 3 ml 02/25/19 01:00 02/26/19 07:08 Duoneb NEB 3 ml [id number] BERNARDINO Administration Allopurinol 100 mg 02/14/19 09:00 02/26/19 08:13 Zyloprim PO 100 mg DAILY BERNARDINO Administration Carbidopa/Levodopa 1 tab 02/14/19 10:00 02/26/19 06:34 Sinemet 25-100 PO Not Given Q8HR BERNARDINO Carvedilol 3.125 mg 02/15/19 09:00 02/26/19 08:14 Coreg PO 3.125 mg DAILY BERNARDINO Administration Cholecalciferol 1,000 units 02/15/19 09:00 02/26/19 08:13 Vitamin D3 PO 1,000 units DAILY BERNARDINO Administration Diphenhydramine HCl 25 mg 02/17/19 20:02 02/24/19 21:03 Benadryl PO 25 mg HSPRN PRN Administration Itching & Insomnia Donepezil HCl 5 mg 02/01/19 09:00 02/26/19 08:14 Aricept PO 5 mg DAILY BERNARDINO Administration Dutasteride 0.5 mg 02/14/19 09:00 02/26/19 08:27 Avodart PO 0.5 mg DAILY BERNARDINO Administration Famotidine 20 mg 02/06/19 09:00 02/26/19 08:28 Pepcid PO Not Given DAILY BERNARDINO Finasteride 5 mg 02/14/19 09:00 02/26/19 08:13 Proscar PO 5 mg DAILY BERNARDINO Administration Folic Acid 1 mg 02/14/19 09:00 02/26/19 08:14 Folvite PO 1 mg DAILY BERNARDINO Administration Gabapentin 100 mg 02/14/19 09:00 02/26/19 08:13 Neurontin PO 100 mg TID BERNARDINO Administration Vancomycin HCl 1 gm/ Device 200 mls @ 200 mls/hr 02/25/19 09:00 02/26/19 08: 15 IVPB 200 mls Q12HR BERNARDINO Administration Meropenem 2 gm/ Sodium 100 mls @ 100 mls/hr 02/25/19 09:00 02/26/19 08:14 Chloride IVPB 100 mls Q8H BERNARDINO Administration Polyethylene Glycol 17 gm 02/14/19 09:00 02/26/19 08:15 Miralax PO Not Given DAILY BERNARDINO Potassium Chloride 20 meq 02/14/19 09:00 02/26/19 08:13 K-Dur PO 20 meq DAILY BERNARDINO Administration Saccharomyces Boulardii 250 mg 02/12/19 09:00 02/26/19 08:14 Florastor PO 250 mg DAILY BERNARDINO Administration Sertraline HCl 50 mg 02/01/19 09:00 09/04/19 08:13 Zoloft PO 50 mg DAILY BERNARDINO Administration Simvastatin 40 mg 02/14/19 21:00 02/25/19 20:33 Zocor PO 40 mg HS BERNARDINO Administration Sodium Chloride 10 ml 01/31/19 16:05 02/26/19 00:25 Flush - Normal Saline IVF 10 ml PRN PRN Administration Saline Flush Tamsulosin HCl 0.4 mg 01/31/19 21:00 02/26/19 08:14 Flomax PO 0.4 mg BID BERNARDINO Administration Tramadol HCl 50 mg 02/24/19 21:27 02/25/19 20:34 Ultram PO 50 mg Q4H PRN Administration Moderate Pain (4-6) - Exam General Appearance: NAD Eye: PERRL, anicteric sclera ENT: normocephalic atraumatic, no oropharyngeal lesions Neck: supple, symmetric, no JVD, no thyromegaly, no lymphadenopathy Heart: RRR, no gallops, no rubs, normal peripheral pulses Respiratory: CTAB, no wheezes, no rales, no ronchi Gastrointestinal: soft, non-tender, non-distended, normal bowel sounds, no palpable masses, no guarding Extremities: no cyanosis, 1+ LE edema Skin: normal turgor, no lesions Neurological: CN's grossly intact, no focal deficits, no new deficit Musculoskeletal: normal tone, generalized weakness Psychiatric: normal affect, oriented to person, oriented to place Hosp A/P (1) Ureterolithiasis Code(s): N20.1 - CALCULUS OF URETER Status: Acute Plan: Laser lithotripsy today, continue Meropenem/Vancomycin, pain control (2) Acute on chronic renal failure Code(s): N17.9 - ACUTE KIDNEY FAILURE, UNSPECIFIED; N18.9 - CHRONIC KIDNEY DISEASE, UNSPECIFIED Status: Acute Qualifiers: Acute renal failure type: with other specified pathological lesion Chronic kidney disease stage: stage 3 (moderate) Qualified Code(s): N17.8 - Other acute kidney failure; N18.3 - Chronic kidney disease, stage 3 (moderate) Plan: Stable, avoid nephrotoxic agents and limit contrast exposure (3) Anemia in CKD (chronic kidney disease) Code(s): N18.9 - CHRONIC KIDNEY DISEASE, UNSPECIFIED; D63.1 - ANEMIA IN CHRONIC KIDNEY DISEASE Status: Acute (4) Physical deconditioning Code(s): R53.81 - OTHER MALAISE Status: Chronic (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, FUSED AND HORSESHOE KIDNEY Status: Chronic (6) Obesity (BMI 30-39.9) Code(s): E66.9 - OBESITY, UNSPECIFIED Status: Chronic (7) Asthma Code(s): J45.909 - UNSPECIFIED ASTHMA, UNCOMPLICATED Status: Chronic Qualifiers: Asthma severity: mild Asthma persistence: intermittent Asthma complication type: uncomplicated Qualified Code(s): J45.20 - Mild intermittent asthma, uncomplicated - Plan continue antibiotics, PT/OT, social services coordinator, respiratory therapy, incentive spirometry, out of bed/ambulate, DVT proph w/SCDs Stable currently Continue supportive mgmt OOB/PT for mobilization s/p Lithotripsy 02/26/19 Inpt Rehab after lithotripsy Continue Avodart/Proscar Likely d/c to Rehab in 24h
[2019-02-26] MEDS ORDERED: Iothalamate Meglumine 60% 50 ML VIAL FS ONE (14:13)
[2019-02-26] MEDS ORDERED: Ketamine 50 MG/ML (10ML VIAL) ONE (14:23)
[2019-02-26] MEDS ORDERED: Midazolam HCl 2 mg/2 ml Vial ONE (14:26)
[2019-02-26] MEDS ORDERED: SUGAMMADEX SODIUM 200 MG/2 ML VIAL ONE (14:27)
[2019-02-26] MEDS ORDERED: Hyoscyamine Sulfate SL 0.125 mg Tablet ONE ×2 (15:03→15:04)
[2019-02-26] MEDS ORDERED: Ondansetron HCl/PF 4 MG/2 ML Vial IVP PRN (16:56)
--- NOTE | 2019-02-26 17:03 | RAD ---
Retrograde ureterogram intraoperative fluoroscopy HISTORY: Renal stone. Stent exchange. FINDINGS: Intraoperative fluoroscopy was provided for retrograde study as performed by Dr. Zelda singh. Spot fluoroscopic images show catheterization of the right ureter. Final image shows double pigtail stent overlying the course of the right ureter. Bilateral renal calculi are also again demons trated.
[2019-02-26 17:44] LABS: Anion Gap 12 mmol/L (10-20); BUN (Urea Nitrogen) 20 mg/dL (8.4-25.7); Calc. Creatinine Clearance 52 mL/min (70-130); Carbon Dioxide 21 mmol/L (23-31); Chloride 113 mmol/L (98-107); Estimated GFR-MDRD 44; Glucose 125 mg/dL (83-110); Potassium 5.4 mmol/L (3.5-5.1); Sodium 141 mmol/L (136-145)
[2019-02-26] MEDS ORDERED: Furosemide 20 MG/2 ML VIAL ONE (17:46)
[2019-02-26 18:03] LABS: #Eosinphils 0.3 thou/uL (0.0-0.7); #Lymphocytes 1.6 thou/uL (1.20-3.40); #Monocytes 0.6 thou/uL (0.11-0.59); #Neutrophils 5.3 thou/uL (1.40-6.50); %Basophils 0.4 % (0.0-1.0); %Eosinophils 3.7 % (0.0-10.0); %Lymphocytes 20.1 % (21.0-51.0); %Monocytes 7.9 % (0.0-10.0); %Neutrophils 67.9 % (42.0-75.0); Hemoglobin 10.4 g/dL (14.0-18.0); Mean Corpuscular HGB CONC 31.7 g/dL (32.0-36.0); Mean Corpuscular Hemoglobin 31.6 pg (27.0-31.0); Mean Corpuscular Volume 99.5 fL (78.0-98.0); Mean Platelet Volume 6.3 fL (7.4-10.4); Platelet Count 319 thou/uL (130-400); RBC Distribution Width 14.1 % (11.5-14.5); Red Blood Cell (RBC) Count 3.28 mill/uL (4.70-6.10); White Blood Cell (WBC) Count 7.8 thou/uL (4.8-10.8)
[2019-02-26 21:28] LABS: Vancomycin, Trough 22.7 ug/mL
[2019-02-26] MEDS: Simvastatin 40 MG TAB PO SCH (21:50)
[2019-02-26] MEDS: Vancomycin HCl 750 MG in Sodium Chloride 0.9% 250 ML 250 ML IVPB SCH (21:58)
[2019-02-26] MEDS: Acetaminophen 325 MG TAB PO PRN (23:59)
[2019-02-27] MEDS: Meropenem 2 GM in Sodium Chloride 0.9% 100 ML IVPB SCH ×3 (00:03→17:10)
--- NOTE | 2019-02-27 00:45 | OP ---
DATE OF PROCEDURE: 02/26/2019 PREOPERATIVE DIAGNOSES: 1. An 88-year-old male with history of horseshoe kidney, significant stone burden bilaterally. 2. History of high-grade right ureteral obstruction due to multiple ureteral calculi. 3. History of renal failure, improved/resolved. POSTOPERATIVE DIAGNOSES: 1. An 88-year-old male with history of horseshoe kidney, significant stone burden bilaterally. 2. History of high-grade right ureteral obstruction due to multiple ureteral calculi. 3. History of renal failure, improved/resolved. PROCEDURES PERFORMED: Cystoscopy, right retrograde pyelogram, 6 x 22 double-J ureteral stent exchange with distal tail in situ, balloon dilation of the distal ureter, flexible and rigid ureteroscopy, laser lithotripsy of multiple ureteral calculi, basket extraction of stone fragments, 20-Palestinian 3-way Benavides catheter placement. ANESTHESIA: General. DISPOSITION: To recovery room. INTRAOPERATIVE FINDINGS: 1. Numerous tiny punctate bladder calculi. 2. Bilobar hyperplasia of the prostate. 3. Bladder spasticity, hindering cystoscopic evaluation. 4. Right UO is somewhat retracted cephalad due to history of horseshoe kidney. 5. Multiple right ureteral calculi, although CT demonstrates 3 main stone niduses, conglomerate of the 8 mm stone is likely multiple 3-4 mm stones. 6. Impacted right L5-S1 8 mm ureteral calculi with mucosal overgrowth. INDICATIONS FOR PROCEDURE AND HISTORY: Mr. Rowland is an 88-year-old male with history of significant comorbidities, previously followed by Dr. Mcknight. He was advised regarding observation of his renal and ureteral calculi. He subsequently presented due to severe sepsis, renal failure, with subcapsular bleed, caliceal rupture due to high-grade ureteral obstruction. He underwent ureteral stent placement, has subsequently been medically optimized. He has been cleared by Infectious Disease, and Cardiology to proceed with ureteroscopy and laser lithotripsy as he remains in-house while waiting for disposition. Indications of ureteroscopy and laser lithotripsy were reviewed with the patient and family in detail. Risks and complications including, but not limited to, bleeding, pain, infection, injury to adjacent organs, urosepsis, ureteral, renal, kidney injury , PE, DVT, comorbidities. Increased risk due to his pre-existing comorbidities have been discussed, however, as he presents with life-threatening ureteral obstruction, patient and family desired to proceed to treat his ureteral stone components. As he does have significant renal stone burden, and due to his comorbidities, decision was made in agreement with family that we will treat the obstructing ureteral calculi only to minimize intraoperative time. DESCRIPTION OF PROCEDURE: After an informed consent was signed, the patient was taken to the operating room, placed in a dorsal lithotomy position with the genital area prepped and draped in the usual surgical sterile fashion. Broad-spectrum antibiotics were provided. A 21-Palestinian cystoscope was utilized for cystoscopy, which demonstrated normal anterior urethra. Prostatic urethra demonstrated obstructing lateral lobes. Bladder was entered, which demonstrated multiple tiny punctate renal calculi 2 to 3 mm in size, consistent with prior passage of kidney stones. The UOs were somewhat retracted cephalad in its orientation in the bladder. The bladder mucosa demonstrated inflammation consistent with chronic indwelling Benavides catheter. The right ureteral stent was removed to the level of the meatus , I was unable to pass a wire through the existing stent as the distal tail was occluded. The wire then subsequently passed on its own and extruded. Therefore , we performed the cystoscope again to identify his right UO. Identification of the right UO was somewhat difficult as there was bullous edema, moreover, patient's bladder would not fill as he had significant spasticity. Levsin 0.25 sublingual was provided intraoperatively. Subsequently, we were able to identify the right UO. An open-ended catheter was utilized to intubate the right ureteral orifice. A 0.035 Sensor wire was passed to the level of the right upper pole. At this time, a rigid ureteroscope was attempted. However, despite having the wire in situ, it was difficult to intubate the right UO. Therefore, we did pass a 10-Palestinian dual- lumen access sheath to obtain an access wire as a working 2nd wire. Rigid ureteroscope was passed with the working wire in situ to the level of the kidney and subsequently removed. We staged the ureter, which demonstrated multiple ureteral calculi significantly more than what CT deemed. It was likely that the 8 mm stone nidus is multiple stones stacked up on top of each other. As the access into the right ureteral orifice was somewhat cumbersome, a decision was made to dilate the intramural ureter with a [employer] 12-Palestinian 4 cm dilator. After subsequent dilatation under fluoroscopic guidance, it was easier to identify the right UO. We were able to subsequently laser lithotripsy of the stones in the ureter which was difficult, as the angle of his ureter was somewhat difficult to engage given his horseshoe kidney. As the ureter was somewhat deviated medially.anterior from the horseshoe kidney, it was challenging to access the ureteral calculi. However, we were able to laser lithotripsy, and subsequently basket extract with flexible and rigid ureteral scope in tandem. There was a larger stone nidus at the level of L5, area just proximal to this demonstrated some narrowing. A 0.035 Sensor wire was able to be passed into the right upper pole as an access wire with Super Stiff. Using an 11/13-Palestinian 28 cm navigator, we passed this to the level of the stone. I tried to engage the stone with the flexible ureteroscope, however, despite flexible ureteroscope, angle of the stone and his anatomy, it was very difficult to engage the stone, moreover this stone had embedded, had mucosal overgrowth. I was able to laser lithotripsy this component and rendered it somewhat free, however, was unable to be safely engaged with the flexible ureteroscope. I did transition to a rigid ureteroscope, visualization was improved, however, it was difficult to access the stone as there was significant bullous edema and inflammation of overgrowth stone. As such, as we spent significant time in lasering and treating his more distal stones, decision was made to bring him back at a later time to address his impacted ureteral stone at the level of L5, as there was significant mucosal overgrowth and inflammatory component. A 6 x 22 double-J ureteral stent was passed over the working wire and the wire subsequently removed. Good coil was seen in the kidney and bladder. I tried to Ellik evacuate the small stones in the bladder; however, due to bladder spasticity, this was unable to be performed. Staging of the bladder stones appeared to be punctate. Therefore, I left them in situ as he will most likely void them out subsequently. I did place an 18-Palestinian 3-way Benavides catheter with 30 mL balloon. Transparent pink red tinged urine was noted. CBI tubing is attached and we will monitor patient off CBI. Due to his medical comorbidities, we will admit to [facility] for medical observation and Cardiology and Medical Service to follow. Job ID: [id number] [facility]
[2019-02-27] MEDS: Carbidopa/Levodopa 25-100 mg Tablet PO SCH ×3 (06:45→21:13)
[2019-02-27 08:15] LABS: Anion Gap 13 mmol/L (10-20); BUN (Urea Nitrogen) 21 mg/dL (8.4-25.7); Calc. Creatinine Clearance 47 mL/min (70-130); Calcium 8.5 mg/dL (7.8-10.44); Carbon Dioxide 20 mmol/L (23-31); Chloride 113 mmol/L (98-107); Estimated GFR-MDRD 39; Glucose 91 mg/dL (83-110); Potassium 4.6 mmol/L (3.5-5.1); Sodium 141 mmol/L (136-145)
[2019-02-27] MEDS: Allopurinol 100 MG TAB PO SCH (09:13)
[2019-02-27] MEDS: Saccharomyces boulardii 250 MG CAP PO SCH (09:13)
[2019-02-27] MEDS: Vancomycin HCl 750 MG in Sodium Chloride 0.9% 250 ML 250 ML IVPB SCH ×2 (09:21→21:13)
[2019-02-27] MEDS: Dutasteride 0.5 MG CAP PO SCH (09:21)
[2019-02-27] MEDS: Donepezil HCl 5 MG TAB PO SCH (09:21)
[2019-02-27] MEDS: Finasteride 5 MG TAB PO SCH (09:21)
[2019-02-27] MEDS: Tamsulosin HCl 0.4 MG CAP PO SCH ×2 (09:21→21:12)
[2019-02-27] MEDS: Carvedilol 3.125 MG TAB PO SCH (09:21)
[2019-02-27] MEDS: Famotidine 20 MG TAB PO SCH (09:21)
[2019-02-27] MEDS: Folic Acid 1 MG TAB PO SCH (09:21)
[2019-02-27] MEDS: Gabapentin 100 MG CAP PO SCH ×3 (09:21→21:12)
[2019-02-27] MEDS: Polyethylene Glycol 3350 17 GM Packet PO SCH (09:22)
[2019-02-27] MEDS: Potassium Chloride 20 MEQ TAB PO SCH (09:22)
--- NOTE | 2019-02-27 09:51 | PRG ---
DATE OF SERVICE: 02/27/2019 SUBJECTIVE: The patient is awake, has no significant discomfort. OBJECTIVE: VITAL SIGNS: T-max of 101.4, 97.6 current, 100% on 3 L, and blood pressure stable 120/59. I's and O's; 570 in and 1050 out, hematuria. ABDOMEN: Soft, nontender, nondistended. : Benavides catheter secured, demonstrating gross hematuria. I did irrigate the catheter at bedside, which demonstrates no clots. start low-rate CBI. LABORATORY DATA: A.m. labs are pending. IMPRESSION AND PLAN: 1. Mr. Rowland is an 88-year-old male with history of horseshoe kidney, high- grade obstruction of the right ureter. 2. History of renal failure, sepsis secondary to above. 3. Chronic lymphocytic leukemia. 4. History of atrial fibrillation, previously on Eliquis, on hold. 5. History of congestive heart failure. 6. History of prostate cancer in remission, on Casodex, previously discontinued by Medical Onc. 7. History of benign prostatic hypertrophy and cystoscopy, on Flomax and Avodart. He is postop day #1, status post cysto, right ureteroscopy, laser lithotripsy, stent exchange, 6 x 22. 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 Multiple ureteral calculi were treated. However one nidus remains at the level of L4 ureter, on ureteroscopy impacted, with mucosal overgrowth. He will require stage ureteroscopy laser lithotripsy at a later date. Recheck blood culture urine culture if temperature greater than 101. Continue meropenem intake per infectious disease recommendations. Anticoagulation contraindicated due to recent surgery and hematuria Job ID: [id number] [facility]
[2019-02-27 14:05] LABS: #Eosinphils 0.3 thou/uL (0.0-0.7); #Lymphocytes 1.4 thou/uL (1.20-3.40); #Monocytes 0.7 thou/uL (0.11-0.59); #Neutrophils 4.1 thou/uL (1.40-6.50); %Basophils 0.6 % (0.0-1.0); %Eosinophils 3.9 % (0.0-10.0); %Lymphocytes 21.8 % (21.0-51.0); %Monocytes 10.2 % (0.0-10.0); %Neutrophils 63.5 % (42.0-75.0); Hemoglobin 9.5 g/dL (14.0-18.0); Mean Corpuscular Hemoglobin 31.7 pg (27.0-31.0); Mean Corpuscular Volume 99.2 fL (78.0-98.0); Mean Platelet Volume 6.5 fL (7.4-10.4); Platelet Count 274 thou/uL (130-400); RBC Distribution Width 14.1 % (11.5-14.5); Red Blood Cell (RBC) Count 2.99 mill/uL (4.70-6.10); White Blood Cell (WBC) Count 6.4 thou/uL (4.8-10.8)
[2019-02-27] MEDS ORDERED: Simethicone Chewable 80 MG TAB PO PRN (15:30)
--- NOTE | 2019-02-27 15:34 | PDOC.HOSPP ---
- Subjective Encounter Date: 02/27/19 Encounter Time: 15:15 Subjective: f/u s/p R ureteral stent and laser lithotripsy with attempts to remove impacted stones. Post-op hematuria on current CBI. Pt c/o abd cramps and gas. + 2 BM's today. No fever or emesis. - Objective Vital Signs & Weight: Vital Signs (12 hours) Temp Pulse Resp Pulse Ox 02/27/19 12:10 63 16 100 02/27/19 11:35 98.6 F 02/27/19 07:44 97.6 F 02/27/19 06:33 100 02/27/19 06:31 90 16 100 02/27/19 03:55 99.3 F Weight Admit Weight 219 lb 2.232 oz Weight 231 lb 3 oz Most Recent Monitor Data Heart Rate from ECG 79 NIBP 113/60 NIBP BP-Mean 77 Respiration from ECG 21 SpO2 100 I&O: 02/26/19 02/27/19 02/28/19 06:59 06:59 06:59 Intake Total 320 570 Output Total 550 1050 1775 Balance -230 480 -7753 Result Diagrams: 02/27/19 13:57 02/27/19 07:03 Additional Labs: Microbiology 02/14/19 15:50 Stool C. difficile GDH Antigen & Toxins - Final Laboratory Tests 02/07/19 02/08/19 02/09/19 03:50 03:30 04:50 Hgb 7.3 L 9.2 L 8.6 L Potassium Creatinine 02/10/19 02/13/19 02/13/19 04:45 05:50 05:50 Hgb 8.7 L 8.6 L Potassium 3.5 Creatinine 2.14 H 02/14/19 06:36 Hgb Potassium 3.3 L Creatinine 1.97 H EKG Reviewed by me: Yes (Tele - V-pacing) Hospitalist ROS - Medication Medications: Active Medications Generic Name Dose Route Start Last Admin Trade Name Freq PRN Reason Stop Dose Admin Acetaminophen 650 mg 01/31/19 04:25 02/26/19 23:59 Tylenol PO 650 mg Q4H PRN Administration Headache/Fever/Mild Pain (1-3) Albuterol/Ipratropium 3 ml 02/25/19 01:00 02/27/19 12:10 Duoneb NEB 3 ml [id number] BERNARDINO Administration Allopurinol 100 mg 02/14/19 09:00 02/27/19 09:13 Zyloprim PO 100 mg DAILY BERNARDINO Administration Carbidopa/Levodopa 1 tab 02/14/19 10:00 02/27/19 12:54 Sinemet 25-100 PO 1 tab Q8HR BERNARDINO Administration Carvedilol 3.125 mg 02/15/19 09:00 02/27/19 09:21 Coreg PO 3.125 mg DAILY BERNARDINO Administration Cholecalciferol 1,000 units 02/15/19 09:00 02/27/19 09:21 Vitamin D3 PO 1,000 units DAILY BERNARDINO Administration Diphenhydramine HCl 25 mg 02/17/19 20:02 02/24/19 21:03 Benadryl PO 25 mg HSPRN PRN Administration Itching & Insomnia Donepezil HCl 5 mg 02/01/19 09:00 02/27/19 09:21 Aricept PO 5 mg DAILY BERNARDINO Administration Dutasteride 0.5 mg 02/14/19 09:00 02/27/19 09:21 Avodart PO 0.5 mg DAILY BERNARDINO Administration Famotidine 20 mg 02/06/19 09:00 02/27/19 09:21 Pepcid PO 20 mg DAILY BERNARDINO Administration Finasteride 5 mg 02/14/19 09:00 02/27/19 09:21 Proscar PO 5 mg DAILY BERNARDINO Administration Folic Acid 1 mg 02/14/19 09:00 02/27/19 09:21 Folvite PO 1 mg DAILY BERNARDINO Administration Gabapentin 100 mg 02/14/19 09:00 02/27/19 09:21 Neurontin PO 100 mg TID BERNARDINO Administration Meropenem 2 gm/ Sodium 100 mls @ 100 mls/hr 02/25/19 09:00 02/27/19 09:22 Chloride IVPB 100 mls Q8H BERNARDINO Administration Vancomycin HCl 750 mg/ Sodium 250 mls @ 250 mls/hr 02/26/19 22:00 02/27/19 09 :21 Chloride IVPB 250 mls 1000,2200 BERNARDINO Administration Polyethylene Glycol 17 gm 02/14/19 09:00 02/27/19 09:22 Miralax PO 17 gm DAILY BERNARDINO Administration Potassium Chloride 20 meq 02/14/19 09:00 02/27/19 09:22 K-Dur PO 20 meq DAILY BERNARDINO Administration Saccharomyces Boulardii 250 mg 02/12/19 09:00 02/27/19 09:13 Florastor PO 250 mg DAILY BERNARDINO Administration Sertraline HCl 50 mg 02/01/19 09:00 02/27/19 09:21 Zoloft PO 50 mg DAILY BERNARDINO Administration Simvastatin 40 mg 02/14/19 21:00 02/26/19 21:50 Zocor PO 40 mg HS BERNARDINO Administration Sodium Chloride 10 ml 01/31/19 16:05 02/26/19 00:25 Flush - Normal Saline IVF 10 ml PRN PRN Administration Saline Flush Tamsulosin HCl 0.4 mg 01/31/19 21:00 02/27/19 09:21 Flomax PO 0.4 mg BID BERNARDINO Administration Tramadol HCl 50 mg 02/24/19 21:27 02/25/19 20:34 Ultram PO 50 mg Q4H PRN Administration Moderate Pain (4-6) - Exam General Appearance: NAD, awake alert Eye: PERRL, anicteric sclera ENT: normocephalic atraumatic, no oropharyngeal lesions Neck: supple, symmetric, no JVD, no thyromegaly, no lymphadenopathy Heart: RRR, no gallops, no rubs, normal peripheral pulses Respiratory: CTAB, no wheezes, no rales, no ronchi Gastrointestinal: soft, non-distended, normal bowel sounds, tender to palpation Extremities: no cyanosis, no clubbing Neurological: CN's grossly intact, no new deficit Musculoskeletal: generalized weakness Psychiatric: A&O x 3 Hosp A/P (1) Ureterolithiasis Code(s): N20.1 - CALCULUS OF URETER Status: Acute Plan: s/p R ureteral stent and attempts to remove impacted stones, continue Meropenem/ Vancomycin post-op, CBI for gross hematuria (2) Acute on chronic renal failure Code(s): N17.9 - ACUTE KIDNEY FAILURE, UNSPECIFIED; N18.9 - CHRONIC KIDNEY DISEASE, UNSPECIFIED Status: Acute Qualifiers: Acute renal failure type: with other specified pathological lesion Chronic kidney disease stage: stage 3 (moderate) Qualified Code(s): N17.8 - Other acute kidney failure; N18.3 - Chronic kidney disease, stage 3 (moderate) Plan: Stable currently, appears to be at baseline renal function (3) Anemia in CKD (chronic kidney disease) Code(s): N18.9 - CHRONIC KIDNEY DISEASE, UNSPECIFIED; D63.1 - ANEMIA IN CHRONIC KIDNEY DISEASE Status: Acute Plan: Serial H/H monitoring given gross hematuria (4) Physical deconditioning Code(s): R53.81 - OTHER MALAISE Status: Chronic Plan: PT/OT for mobilization, SNF/Rehab pending (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, FUSED AND HORSESHOE KIDNEY Status: Chronic (6) Obesity (BMI 30-39.9) Code(s): E66.9 - OBESITY, UNSPECIFIED Status: Chronic (7) Asthma Code(s): J45.909 - UNSPECIFIED ASTHMA, UNCOMPLICATED Status: Chronic Qualifiers: Asthma severity: mild Asthma persistence: intermittent Asthma complication type: uncomplicated Qualified Code(s): J45.20 - Mild intermittent asthma, uncomplicated - Plan continue antibiotics, PT/OT, certified social workers in health care, respiratory therapy, out of bed/ ambulate, DVT proph w/SCDs Stable currently Continue supportive mgmt OOB/PT for mobilization s/p Lithotripsy 02/26/19 with R ureteral stent Inpt Rehab when clinically stable Continue Avodart/Proscar Continue Meropenem/Vancomycin Continue CBI Trial Simethicone 80mg PCHS AM lab: BMP, CBC
[2019-02-27] MEDS: traMADol HCl 50 MG TAB PO PRN (16:34)
[2019-02-27] MEDS: Hyoscyamine Sulfate SL 0.125 mg Tablet SL SCH (17:10)
[2019-02-27] MEDS: Simvastatin 40 MG TAB PO SCH (21:12)
[2019-02-28] MEDS: Meropenem 2 GM in Sodium Chloride 0.9% 100 ML IVPB SCH ×3 (00:28→17:23)
[2019-02-28] MEDS: Hyoscyamine Sulfate SL 0.125 mg Tablet SL SCH ×4 (00:28→17:23)
[2019-02-28 06:15] LABS: #Basophils 0.1 thou/uL (0.0-0.2); #Eosinphils 0.7 thou/uL (0.0-0.7); #Lymphocytes 1.8 thou/uL (1.20-3.40); #Monocytes 0.7 thou/uL (0.11-0.59); #Neutrophils 3.1 thou/uL (1.40-6.50); %Basophils 0.8 % (0.0-1.0); %Eosinophils 11.3 % (0.0-10.0); %Lymphocytes 28.6 % (21.0-51.0); %Monocytes 10.5 % (0.0-10.0); %Neutrophils 48.8 % (42.0-75.0); Hemoglobin 8.5 g/dL (14.0-18.0); Mean Corpuscular HGB CONC 32.2 g/dL (32.0-36.0); Mean Corpuscular Volume 99.3 fL (78.0-98.0); Mean Platelet Volume 6.5 fL (7.4-10.4); Platelet Count 291 thou/uL (130-400); RBC Distribution Width 13.9 % (11.5-14.5); Red Blood Cell (RBC) Count 2.66 mill/uL (4.70-6.10); White Blood Cell (WBC) Count 6.3 thou/uL (4.8-10.8)
[2019-02-28] MEDS: Carbidopa/Levodopa 25-100 mg Tablet PO SCH ×3 (06:17→21:44)
[2019-02-28 06:32] LABS: Anion Gap 9 mmol/L (10-20); BUN (Urea Nitrogen) 19 mg/dL (8.4-25.7); Calc. Creatinine Clearance 52 mL/min (70-130); Calcium 8.5 mg/dL (7.8-10.44); Carbon Dioxide 26 mmol/L (23-31); Chloride 111 mmol/L (98-107); Estimated GFR-MDRD 44; Glucose 78 mg/dL (83-110); Potassium 4.6 mmol/L (3.5-5.1); Sodium 141 mmol/L (136-145)
--- NOTE | 2019-02-28 08:35 | PRG ---
DATE OF SERVICE: 02/28/2019 SUBJECTIVE: The patient is alert. OBJECTIVE: VITAL SIGNS: Stable, 98, 113/75. I's and O's; 3900 in, 6 L out. On low rate CBI, not true urine output. ABDOMEN: Soft. No rigidity. No rebound. GENITOURINARY: Benavides catheter adequately secured with clear dilute urine, CBI at a very low rate. LABORATORY DATA: White count 6, hemoglobin 8.5, and platelet 291. Creatinine is 1.52. All cultures negative thus far. IMPRESSION: Mr. Rowland is an 88-year-old male with history of horseshoe kidney, high-grade obstruction of the right ureter, history of renal failure, sepsis secondary to above due to high-grade right ureteral obstruction, chronic lymphocytic leukemia. 1. History of atrial fibrillation, previously on Eliquis on hold. 2. History of congestive heart failure. 3. History of prostate cancer, in remission, on Casodex, previously discontinued by Medical Oncology. 4. History of benign prostatic hyperplasia, on cystoscopy, on Flomax and Avodart. PLAN: Postop day #2, status post cysto, right ureteroscopy, laser lithotripsy, stent exchange 6 x 22. Most of his ureteral stones were extracted and laser lithotripsies. One nidus remains as it was imbedded, unable to approach at this time. I plan to take the patient back in few weeks for restaging ureteroscopy. CBI can be held and flush p.r.n. as his hematuria has significantly improved. Anticipate the patient can be discharged to rehab sometime next week, ideally without a Benavides catheter as I anticipate hematuria will resolve. Continue broad-spectrum antibiotics, meropenem, vancomycin, per discretion of Dr. Alfred. Dr. Hinson covering me this weekend Job ID: [id number] [facility]
[2019-02-28] MEDS: Carvedilol 3.125 MG TAB PO SCH (09:14)
[2019-02-28] MEDS: Allopurinol 100 MG TAB PO SCH (09:14)
[2019-02-28] MEDS: Dutasteride 0.5 MG CAP PO SCH (09:14)
[2019-02-28] MEDS: Donepezil HCl 5 MG TAB PO SCH (09:14)
[2019-02-28] MEDS: Famotidine 20 MG TAB PO SCH (09:14)
[2019-02-28] MEDS: Folic Acid 1 MG TAB PO SCH (09:15)
[2019-02-28] MEDS: Gabapentin 100 MG CAP PO SCH ×3 (09:15→20:39)
[2019-02-28] MEDS: Finasteride 5 MG TAB PO SCH (09:15)
[2019-02-28] MEDS: Polyethylene Glycol 3350 17 GM Packet PO SCH (09:15)
[2019-02-28] MEDS: Potassium Chloride 20 MEQ TAB PO SCH (09:15)
[2019-02-28] MEDS: Saccharomyces boulardii 250 MG CAP PO SCH (09:16)
[2019-02-28] MEDS: Vancomycin HCl 750 MG in Sodium Chloride 0.9% 250 ML 250 ML IVPB SCH ×2 (09:16→10:46)
[2019-02-28] MEDS: Tamsulosin HCl 0.4 MG CAP PO SCH ×2 (09:16→20:39)
[2019-02-28 09:54] LABS: Vancomycin, Trough 30.4 ug/mL
--- NOTE | 2019-02-28 10:30 | PDOC.HOSPP ---
- Subjective Encounter Date: 02/28/19 Subjective: appears well, not in distress, he is confused. - Objective Vital Signs & Weight: Vital Signs (12 hours) Temp Pulse Resp Pulse Ox 02/28/19 08:06 90 15 99 02/28/19 07:14 98.0 F 02/28/19 03:40 98.8 F 02/28/19 00:33 81 16 100 02/28/19 00:00 98.8 F Weight Admit Weight 219 lb 2.232 oz Weight 231 lb 3 oz Most Recent Monitor Data Heart Rate from ECG 79 NIBP 117/59 NIBP BP-Mean 78 Respiration from ECG 18 SpO2 100 I&O: 02/27/19 02/28/19 03/01/19 06:59 06:59 06:59 Intake Total 570 3900 Output Total 1050 6050 Balance -480 -2150 Result Diagrams: 02/28/19 05:27 02/28/19 05:27 Hospitalist ROS - Review of Systems Constitutional: reports: fever, chills, sweats, weakness, malaise, other Eyes: reports: pain, vision change, conjunctivae inflammation, eyelid inflammation, redness, other ENT: reports: ear pain, ear discharge, nose pain, nose discharge, nose congestion, mouth pain, mouth swelling, throat pain, throat swelling, other Respiratory: reports: cough, dry, shortness of breath, hemoptysis, SOB with excertion, pleuritic pain, sputum, wheezing, other Cardiovascular: reports: chest pain, palpitations, orthopnea, paroxysmal noc. dyspnea, edema, light headedness, other Gastrointestinal: reports: nausea, vomitting, abdominal pain, diarrhea, constipation, melena, hematochezia, other Genitourinary: reports: dysuria, frequency, incontinence, hematuria, retention, other Musculoskeletal: reports: neck pain, shoulder pain, arm pain, back pain, hand pain, leg pain, foot pain, other Skin: reports: rash, lesions, carine, bruising, other Neurological: reports: weakness, numbness, incoordination, change in speech, confusion, seizures, other - Medication Medications: Active Medications Generic Name Dose Route Start Last Admin Trade Name Freq PRN Reason Stop Dose Admin Acetaminophen 650 mg 01/31/19 04:25 02/26/19 23:59 Tylenol PO 650 mg Q4H PRN Administration Headache/Fever/Mild Pain (1-3) Albuterol/Ipratropium 3 ml 02/25/19 01:00 02/28/19 08:06 Duoneb NEB 3 ml [id number] BERNARDINO Administration Allopurinol 100 mg 02/14/19 09:00 02/28/19 09:14 Zyloprim PO 100 mg DAILY BERNARDINO Administration Carbidopa/Levodopa 1 tab 02/14/19 10:00 02/28/19 06:17 Sinemet 25-100 PO 1 tab Q8HR BERNARDINO Administration Carvedilol 3.125 mg 02/15/19 09:00 02/28/19 09:14 Coreg PO 3.125 mg DAILY BERNARDINO Administration Cholecalciferol 1,000 units 02/15/19 09:00 02/28/19 09:14 Vitamin D3 PO 1,000 units DAILY BERNARDINO Administration Diphenhydramine HCl 25 mg 02/17/19 20:02 02/24/19 21:03 Benadryl PO 25 mg HSPRN PRN Administration Itching & Insomnia Donepezil HCl 5 mg 02/01/19 09:00 02/28/19 09:14 Aricept PO 5 mg DAILY BERNARDINO Administration Dutasteride 0.5 mg 02/14/19 09:00 02/28/19 09:14 Avodart PO 0.5 mg DAILY BERNARDINO Administration Famotidine 20 mg 02/06/19 09:00 02/28/19 09:14 Pepcid PO 20 mg DAILY BERNARDINO Administration Finasteride 5 mg 02/14/19 09:00 02/28/19 09:15 Proscar PO 5 mg DAILY BERNARDINO Administration Folic Acid 1 mg 02/14/19 09:00 02/28/19 09:15 Folvite PO 1 mg DAILY BERNARDINO Administration Gabapentin 100 mg 02/14/19 09:00 02/28/19 09:15 Neurontin PO 100 mg TID BERNARDINO Administration Hyoscyamine Sulfate 0.25 mg 02/27/19 18:00 02/28/19 06:17 Levsin Sl SL 0.25 mg Q6HR BERNARDINO Administration Meropenem 2 gm/ Sodium 100 mls @ 100 mls/hr 02/25/19 09:00 02/28/19 09:15 Chloride IVPB 100 mls Q8H BERNARDINO Administration Polyethylene Glycol 17 gm 02/14/19 09:00 02/28/19 09:15 Miralax PO Not Given DAILY BERNARDINO Potassium Chloride 20 meq 02/14/19 09:00 02/28/19 09:15 K-Dur PO 20 meq DAILY BERNARDINO Administration Saccharomyces Boulardii 250 mg 02/12/19 09:00 02/28/19 09:16 Florastor PO 250 mg DAILY BERNARDINO Administration Sertraline HCl 50 mg 02/01/19 09:00 02/28/19 09:16 Zoloft PO 50 mg DAILY BERNARDINO Administration Simethicone 80 mg 02/27/19 15:30 02/27/19 16:35 Mylicon Chewable PO 80 mg PCHS PRN Administration Gas Pain Simvastatin 40 mg 02/14/19 21:00 02/27/19 21:12 Zocor PO 40 mg HS BERNARDINO Administration Sodium Chloride 10 ml 01/31/19 16:05 02/27/19 21:13 Flush - Normal Saline IVF 10 ml PRN PRN Administration Saline Flush Tamsulosin HCl 0.4 mg 01/31/19 21:00 02/28/19 09:16 Flomax PO 0.4 mg BID BERNARDINO Administration Tramadol HCl 50 mg 02/24/19 21:27 02/27/19 16:34 Ultram PO 50 mg Q4H PRN Administration Moderate Pain (4-6) Hosp A/P (1) Anemia in CKD (chronic kidney disease) Code(s): N18.9 - CHRONIC KIDNEY DISEASE, UNSPECIFIED; D63.1 - ANEMIA IN CHRONIC KIDNEY DISEASE Status: Acute (2) Ureterolithiasis Code(s): N20.1 - CALCULUS OF URETER Status: Acute (3) Horseshoe kidney Code(s): Q63.1 - LOBULATED, FUSED AND HORSESHOE KIDNEY Status: Chronic (4) Acute on chronic renal failure Code(s): N17.9 - ACUTE KIDNEY FAILURE, UNSPECIFIED; N18.9 - CHRONIC KIDNEY DISEASE, UNSPECIFIED Status: Acute Qualifiers: Acute renal failure type: with other specified pathological lesion Chronic kidney disease stage: stage 3 (moderate) Qualified Code(s): N17.8 - Other acute kidney failure; N18.3 - Chronic kidney disease, stage 3 (moderate) (5) CKD (chronic kidney disease) stage 3, GFR 30-59 ml/min Code(s): N18.3 - CHRONIC KIDNEY DISEASE, STAGE 3 (MODERATE) Status: Chronic (6) Parkinson disease Code(s): G20 - PARKINSON'S DISEASE Status: Chronic - Plan - Day 2 post cysto and stent placement--follow urology recommendation ---as per Uro will need restaging ureteroscopy in couple of weeks. - hgb stable - sepsis--continue IV ATB - afib---eliquis on hold - CKD--seems stable , will continue to follow labs.
[2019-02-28] MEDS: Simvastatin 40 MG TAB PO SCH (20:39)
[2019-03-01] MEDS: Hyoscyamine Sulfate SL 0.125 mg Tablet SL SCH ×4 (00:44→17:51)
[2019-03-01] MEDS: Meropenem 2 GM in Sodium Chloride 0.9% 100 ML IVPB SCH ×3 (00:53→17:47)
[2019-03-01] MEDS: Carbidopa/Levodopa 25-100 mg Tablet PO SCH ×3 (06:42→21:16)
[2019-03-01] MEDS: Allopurinol 100 MG TAB PO SCH (09:07)
[2019-03-01] MEDS: Carvedilol 3.125 MG TAB PO SCH (09:07)
[2019-03-01] MEDS: Donepezil HCl 5 MG TAB PO SCH (09:08)
[2019-03-01] MEDS: Famotidine 20 MG TAB PO SCH (09:08)
[2019-03-01] MEDS: Dutasteride 0.5 MG CAP PO SCH (09:08)
[2019-03-01] MEDS: Folic Acid 1 MG TAB PO SCH (09:09)
[2019-03-01] MEDS: Potassium Chloride 20 MEQ TAB PO SCH (09:09)
[2019-03-01] MEDS: Gabapentin 100 MG CAP PO SCH ×3 (09:09→21:16)
[2019-03-01] MEDS: Polyethylene Glycol 3350 17 GM Packet PO SCH (09:09)
[2019-03-01] MEDS: Finasteride 5 MG TAB PO SCH (09:09)
[2019-03-01] MEDS: Saccharomyces boulardii 250 MG CAP PO SCH (09:10)
[2019-03-01] MEDS: Tamsulosin HCl 0.4 MG CAP PO SCH ×2 (09:10→21:16)
[2019-03-01 09:31] LABS: Vancomycin, Random 24.1 ug/mL (See Comment)
--- NOTE | 2019-03-01 13:09 | PDOC.HOSPP ---
- Subjective Encounter Date: 03/01/19 Encounter Time: 11:00 Subjective: Patient seen and examined. No new complaints. No overnight events - Objective Vital Signs & Weight: Vital Signs (12 hours) Temp Pulse Resp Pulse Ox 03/01/19 10:25 98.0 F 03/01/19 07:56 99 03/01/19 07:54 80 19 99 03/01/19 07:12 99.0 F 03/01/19 04:00 99.0 F Weight Admit Weight 219 lb 2.232 oz Weight 231 lb 3 oz Most Recent Monitor Data Heart Rate from ECG 89 NIBP 111/69 NIBP BP-Mean 83 Respiration from ECG 15 SpO2 100 I&O: 02/28/19 03/01/19 03/02/19 06:59 06:59 06:59 Intake Total 3900 1400 Output Total 6050 1375 Balance -2150 25 Result Diagrams: 02/28/19 05:27 02/28/19 05:27 Radiology Reviewed by me: Yes EKG Reviewed by me: Yes Hospitalist ROS - Review of Systems ENT: denies: ear pain, ear discharge, nose pain, nose discharge, nose congestion , mouth pain, mouth swelling, throat pain, throat swelling, other Respiratory: denies: cough, dry, shortness of breath, hemoptysis, SOB with excertion, pleuritic pain, sputum, wheezing, other Cardiovascular: denies: chest pain, palpitations, orthopnea, paroxysmal noc. dyspnea, edema, light headedness, other Gastrointestinal: denies: nausea, vomitting, abdominal pain, diarrhea, constipation, melena, hematochezia, other Genitourinary: denies: dysuria, frequency, incontinence, hematuria, retention, other Musculoskeletal: denies: neck pain, shoulder pain, arm pain, back pain, hand pain, leg pain, foot pain, other - Medication Medications: Active Medications Generic Name Dose Route Start Last Admin Trade Name Freq PRN Reason Stop Dose Admin Acetaminophen 650 mg 01/31/19 04:25 02/26/19 23:59 Tylenol PO 650 mg Q4H PRN Administration Headache/Fever/Mild Pain (1-3) Albuterol/Ipratropium 3 ml 02/25/19 01:00 03/01/19 07:54 Duoneb NEB 3 ml [id number] BERNARDINO Administration Allopurinol 100 mg 02/14/19 09:00 03/01/19 09:07 Zyloprim PO 100 mg DAILY BERNARDINO Administration Carbidopa/Levodopa 1 tab 02/14/19 10:00 03/01/19 06:42 Sinemet 25-100 PO 1 tab Q8HR BERNARDINO Administration Carvedilol 3.125 mg 02/15/19 09:00 03/01/19 09:07 Coreg PO 3.125 mg DAILY BERNARDINO Administration Cholecalciferol 1,000 units 02/15/19 09:00 03/01/19 09:08 Vitamin D3 PO 1,000 units DAILY BERNARDINO Administration Diphenhydramine HCl 25 mg 02/17/19 20:02 02/24/19 21:03 Benadryl PO 25 mg HSPRN PRN Administration Itching & Insomnia Donepezil HCl 5 mg 02/01/19 09:00 03/01/19 09:08 Aricept PO 5 mg DAILY BERNARDINO Administration Dutasteride 0.5 mg 02/14/19 09:00 03/01/19 09:08 Avodart PO 0.5 mg DAILY BERNARDINO Administration Famotidine 20 mg 02/06/19 09:00 03/01/19 09:08 Pepcid PO 20 mg DAILY BERNARDINO Administration Finasteride 5 mg 02/14/19 09:00 03/01/19 09:09 Proscar PO 5 mg DAILY BERNARDINO Administration Folic Acid 1 mg 02/14/19 09:00 03/01/19 09:09 Folvite PO 1 mg DAILY BERNARDINO Administration Gabapentin 100 mg 02/14/19 09:00 03/01/19 09:09 Neurontin PO 100 mg TID BERNARDINO Administration Hyoscyamine Sulfate 0.25 mg 02/27/19 18:00 03/01/19 06:42 Levsin Sl SL 0.25 mg Q6HR BERNARDINO Administration Meropenem 2 gm/ Sodium 100 mls @ 100 mls/hr 02/25/19 09:00 03/01/19 09:09 Chloride IVPB 100 mls Q8H BERNARDINO Administration Polyethylene Glycol 17 gm 02/14/19 09:00 03/01/19 09:09 Miralax PO Not Given DAILY BERNARDINO Potassium Chloride 20 meq 02/14/19 09:00 03/01/19 09:09 K-Dur PO 20 meq DAILY BERNARDINO Administration Saccharomyces Boulardii 250 mg 02/12/19 09:00 03/01/19 09:10 Florastor PO 250 mg DAILY BERNARDINO Administration Sertraline HCl 50 mg 02/01/19 09:00 03/01/19 09:10 Zoloft PO 50 mg DAILY BERNARDINO Administration Simethicone 80 mg 02/27/19 15:30 02/27/19 16:35 Mylicon Chewable PO 80 mg PCHS PRN Administration Gas Pain Simvastatin 40 mg 02/14/19 21:00 02/28/19 20:39 Zocor PO 40 mg HS BERNARDINO Administration Sodium Chloride 10 ml 01/31/19 16:05 03/01/19 09:10 Flush - Normal Saline IVF 10 ml PRN PRN Administration Saline Flush Tamsulosin HCl 0.4 mg 01/31/19 21:00 03/01/19 09:10 Flomax PO 0.4 mg BID BERNARDINO Administration Tramadol HCl 50 mg 02/24/19 21:27 02/27/19 16:34 Ultram PO 50 mg Q4H PRN Administration Moderate Pain (4-6) - Exam General Appearance: NAD, awake alert Eye: PERRL, anicteric sclera ENT: normocephalic atraumatic, no oropharyngeal lesions Neck: supple, symmetric, no JVD Heart: RRR, no murmur, no gallops, no rubs Respiratory: CTAB, no wheezes, no rales Gastrointestinal: soft, non-tender, non-distended, normal bowel sounds Extremities: no cyanosis, no clubbing Skin: normal turgor, no lesions Neurological: CN's grossly intact, no focal deficits Musculoskeletal: normal tone, normal strength Psychiatric: normal affect, normal behavior Hosp A/P (1) Ureterolithiasis Code(s): N20.1 - CALCULUS OF URETER Status: Acute (2) Nephrolithiasis Status: Acute (3) Asthma Code(s): J45.909 - UNSPECIFIED ASTHMA, UNCOMPLICATED Status: Chronic Qualifiers: Asthma severity: mild Asthma persistence: intermittent Asthma complication type: uncomplicated Qualified Code(s): J45.20 - Mild intermittent asthma, uncomplicated (4) CKD (chronic kidney disease) stage 3, GFR 30-59 ml/min Code(s): N18.3 - CHRONIC KIDNEY DISEASE, STAGE 3 (MODERATE) Status: Chronic (5) CLL (chronic lymphocytic leukemia) Code(s): C91.90 - LYMPHOID LEUKEMIA, UNSPECIFIED NOT HAVING ACHIEVED REMISSION Status: Chronic (6) Chronic systolic congestive heart failure, NYHA class 3 Code(s): I50.22 - CHRONIC SYSTOLIC (CONGESTIVE) HEART FAILURE Status: Chronic (7) Coronary artery disease Code(s): I25.10 - ATHSCL HEART DISEASE OF [place] CORONARY ARTERY W/O ANG PCTRS Status: Chronic (8) DM type 2 (diabetes mellitus, type 2) Status: Chronic Qualifiers: Diabetes mellitus continuous churn buttermaker insulin use: without continuous churn buttermaker use Diabetes mellitus complication status: with unspecified complications (9) Dyslipidemia Code(s): E78.5 - HYPERLIPIDEMIA, UNSPECIFIED Status: Chronic (10) H/O prostate cancer Code(s): Z85.46 - PERSONAL HISTORY OF MALIGNANT NEOPLASM OF PROSTATE Status: Chronic (11) HTN (hypertension) Code(s): I10 - ESSENTIAL (PRIMARY) HYPERTENSION Status: Chronic Qualifiers: Hypertension type: essential hypertension Qualified Code(s): I10 - Essential (primary) hypertension (12) Ischemic cardiomyopathy Code(s): I25.5 - ISCHEMIC CARDIOMYOPATHY Status: Chronic (13) Obesity (BMI 30-39.9) Code(s): E66.9 - OBESITY, UNSPECIFIED Status: Chronic (14) Parkinson disease Code(s): G20 - PARKINSON'S DISEASE Status: Chronic (15) Physical deconditioning Code(s): R53.81 - OTHER MALAISE Status: Chronic (16) Horseshoe kidney Code(s): Q63.1 - LOBULATED, FUSED AND HORSESHOE KIDNEY Status: Chronic (17) Hematuria Code(s): R31.9 - HEMATURIA, UNSPECIFIED Status: Resolved - Plan old records reviewed/req, continue antibiotics bladder irrigation now off, hematuria resolved continue PT/OT and will need for placement medication reviewed as below symptomatic treatment currently in meropenam and vancomycin will transfer to surgical floor vitals stable
--- NOTE | 2019-03-01 14:44 | PRG ---
DATE OF SERVICE: 03/01/2019 SUBJECTIVE: The patient states he is feeling fine. He states he feels much better than he did previously. He recently underwent a ureteroscopy this week with Dr. Tejada with removal of several stones in his ureter, but he still has a stone remaining. He has a Benavides catheter in place with a stent in place as well. He denies any pain or bladder spasms. OBJECTIVE: VITAL SIGNS: Temperature 98.0, pulse 89, respirations 15, blood pressure 111/69, and saturation 100% on room air. GENERAL: No apparent distress, communicative, and alert. CARDIOVASCULAR: Regular rate and rhythm. CHEST: No increased work of breathing. EXTREMITIES: 1+ edema bilaterally. GENITOURINARY: Benavides catheter in place with clear yellow urine secured. LABORATORY EVALUATION: The full set of labs are in the [facility], which I have reviewed. Of note, the patient's white count is 6.3 with a hemoglobin of 8.5. Creatinine is 1.52, which is around baseline. ASSESSMENT AND PLAN: An 88-year-old white male with ureterolithiasis and acute kidney injury, which has mostly recovered. He underwent a ureteroscopy after clearance of a previous urinary tract infection with removal of majority of stones. However, the patient continues to have one stone remaining within the ureter and some additional stones in the kidney. Dr. Tejada will plan treatment in the future after discussion with the son and the patient regarding long-term plans. For now, we would not recommend any further changes. We would recommend continuation of the Benavides catheter for the time being. If catheter is to be removed, I will leave that to Dr. Tejada's discretion on Sunday. I will continue to see him over the weekend. Job ID: [id number]
[2019-03-01] MEDS: Simvastatin 40 MG TAB PO SCH (21:16)
[2019-03-02] MEDS: Hyoscyamine Sulfate SL 0.125 mg Tablet SL SCH ×4 (00:31→17:29)
[2019-03-02] MEDS: Meropenem 2 GM in Sodium Chloride 0.9% 100 ML IVPB SCH ×3 (01:57→17:29)
[2019-03-02] MEDS: Carbidopa/Levodopa 25-100 mg Tablet PO SCH ×3 (05:55→20:59)
[2019-03-02] MEDS: Finasteride 5 MG TAB PO SCH (08:46)
[2019-03-02] MEDS: Gabapentin 100 MG CAP PO SCH ×3 (08:46→20:56)
[2019-03-02] MEDS: Potassium Chloride 20 MEQ TAB PO SCH (08:46)
[2019-03-02] MEDS: Allopurinol 100 MG TAB PO SCH (08:46)
[2019-03-02] MEDS: Carvedilol 3.125 MG TAB PO SCH (08:47)
[2019-03-02] MEDS: Folic Acid 1 MG TAB PO SCH (08:48)
[2019-03-02] MEDS: Famotidine 20 MG TAB PO SCH (08:48)
[2019-03-02] MEDS: Donepezil HCl 5 MG TAB PO SCH (08:48)
[2019-03-02] MEDS: Dutasteride 0.5 MG CAP PO SCH (08:48)
[2019-03-02] MEDS: Saccharomyces boulardii 250 MG CAP PO SCH (08:48)
[2019-03-02] MEDS: Polyethylene Glycol 3350 17 GM Packet PO SCH (08:48)
[2019-03-02] MEDS: Tamsulosin HCl 0.4 MG CAP PO SCH ×2 (08:48→20:56)
[2019-03-02] MEDS ORDERED: Vancomycin HCl 1 GM in Premix Bag 1 BAG IVPB SCH (10:00)
[2019-03-02 11:14] LABS: Vancomycin, Random 16.2 ug/mL (See Comment)
--- NOTE | 2019-03-02 11:57 | PDOC.HOSPP ---
- Subjective Encounter Date: 03/02/19 Encounter Time: 07:30 Subjective: Patient seen and examined. No new complaints. No overnight events - Objective Vital Signs & Weight: Vital Signs (12 hours) Temp Pulse Resp BP BP Pulse Ox 03/02/19 10:50 98.2 F 88 18 125/74 03/02/19 08:45 100 03/02/19 07:59 98.1 F 77 18 102/56 L 100 03/02/19 04:33 98.2 F 76 18 115/60 98 03/02/19 01:00 98.5 F 77 18 108/57 L 100 Weight Admit Weight 219 lb 2.232 oz Weight 231 lb 3 oz Most Recent Monitor Data Heart Rate from ECG 75 NIBP 137/66 NIBP BP-Mean 89 Respiration from ECG 15 SpO2 100 I&O: 03/01/19 03/02/19 03/03/19 06:59 06:59 06:59 Intake Total 1400 1180 Output Total 1375 1825 Balance 25 -645 Result Diagrams: 02/28/19 05:27 02/28/19 05:27 Hospitalist ROS - Review of Systems ENT: denies: ear pain, ear discharge, nose pain, nose discharge, nose congestion , mouth pain, mouth swelling, throat pain, throat swelling, other Respiratory: denies: cough, dry, shortness of breath, hemoptysis, SOB with excertion, pleuritic pain, sputum, wheezing, other Cardiovascular: denies: chest pain, palpitations, orthopnea, paroxysmal noc. dyspnea, edema, light headedness, other Gastrointestinal: denies: nausea, vomitting, abdominal pain, diarrhea, constipation, melena, hematochezia, other Genitourinary: denies: dysuria, frequency, incontinence, hematuria, retention, other Musculoskeletal: denies: neck pain, shoulder pain, arm pain, back pain, hand pain, leg pain, foot pain, other - Medication Medications: Active Medications Generic Name Dose Route Start Last Admin Trade Name Freq PRN Reason Stop Dose Admin Acetaminophen 650 mg 01/31/19 04:25 02/26/19 23:59 Tylenol PO 650 mg Q4H PRN Administration Headache/Fever/Mild Pain (1-3) Albuterol/Ipratropium 3 ml 02/25/19 01:00 03/02/19 07:30 Duoneb NEB Not Given [id number] BERNARDINO Allopurinol 100 mg 02/14/19 09:00 03/02/19 08:46 Zyloprim PO 100 mg DAILY BERNARDINO Administration Carbidopa/Levodopa 1 tab 02/14/19 10:00 03/02/19 05:55 Sinemet 25-100 PO 1 tab Q8HR BENRARDINO Administration Carvedilol 3.125 mg 02/15/19 09:00 03/02/19 08:47 Coreg PO 3.125 mg DAILY BERNARDINO Administration Cholecalciferol 1,000 units 02/15/19 09:00 03/02/19 08:46 Vitamin D3 PO 1,000 units DAILY BERNARDINO Administration Diphenhydramine HCl 25 mg 02/17/19 20:02 02/24/19 21:03 Benadryl PO 25 mg HSPRN PRN Administration Itching & Insomnia Donepezil HCl 5 mg 02/01/19 09:00 03/02/19 08:48 Aricept PO 5 mg DAILY BERNARDINO Administration Dutasteride 0.5 mg 02/14/19 09:00 03/02/19 08:48 Avodart PO 0.5 mg DAILY BERNARDINO Administration Famotidine 20 mg 02/06/19 09:00 03/02/19 08:48 Pepcid PO 20 mg DAILY BERNARDINO Administration Finasteride 5 mg 02/14/19 09:00 03/02/19 08:46 Proscar PO 5 mg DAILY BERNARDINO Administration Folic Acid 1 mg 02/14/19 09:00 03/02/19 08:48 Folvite PO 1 mg DAILY BERNARDION Administration Gabapentin 100 mg 02/14/19 09:00 03/02/19 08:46 Neurontin PO 100 mg TID BERNARDINO Administration Hyoscyamine Sulfate 0.25 mg 02/27/19 18:00 03/02/19 05:55 Levsin Sl SL 0.25 mg Q6HR BERNARDINO Administration Meropenem 2 gm/ Sodium 100 mls @ 100 mls/hr 02/25/19 09:00 03/02/19 08:46 Chloride IVPB 100 mls Q8H BERNARDINO Administration Polyethylene Glycol 17 gm 02/14/19 09:00 03/02/19 08:48 Miralax PO 17 gm DAILY BERNARDINO Administration Potassium Chloride 20 meq 02/14/19 09:00 03/02/19 08:46 K-Dur PO 20 meq DAILY BERNARDINO Administration Saccharomyces Boulardii 250 mg 02/12/19 09:00 03/02/19 08:48 Florastor PO 250 mg DAILY BERNARDINO Administration Sertraline HCl 50 mg 02/01/19 09:00 03/02/19 08:46 Zoloft PO 50 mg DAILY BERNARDINO Administration Simethicone 80 mg 02/27/19 15:30 02/27/19 16:35 Mylicon Chewable PO 80 mg PCHS PRN Administration Gas Pain Simvastatin 40 mg 02/14/19 21:00 03/01/19 21:16 Zocor PO 40 mg HS BERNARDINO Administration Sodium Chloride 10 ml 01/31/19 16:05 03/01/19 09:10 Flush - Normal Saline IVF 10 ml PRN PRN Administration Saline Flush Tamsulosin HCl 0.4 mg 01/31/19 21:00 03/02/19 08:48 Flomax PO 0.4 mg BID BERNARDINO Administration Tramadol HCl 50 mg 02/24/19 21:27 02/27/19 16:34 Ultram PO 50 mg Q4H PRN Administration Moderate Pain (4-6) - Exam General Appearance: NAD, awake alert Eye: PERRL, anicteric sclera ENT: normocephalic atraumatic, no oropharyngeal lesions Neck: supple, symmetric, no JVD, no thyromegaly Heart: RRR, no murmur, no gallops, no rubs Respiratory: CTAB, no wheezes, no rales Gastrointestinal: soft, non-tender, non-distended, normal bowel sounds, no palpable masses, no hepatomegaly, no splenomegaly, no bruit Extremities: no clubbing, no edema Skin: normal turgor, no lesions Neurological: no focal deficits Musculoskeletal: normal tone, normal strength Psychiatric: normal affect, normal behavior Hosp A/P (1) Ureterolithiasis Code(s): N20.1 - CALCULUS OF URETER Status: Acute (2) Nephrolithiasis Status: Acute (3) Asthma Code(s): J45.909 - UNSPECIFIED ASTHMA, UNCOMPLICATED Status: Chronic Qualifiers: Asthma severity: mild Asthma persistence: intermittent Asthma complication type: uncomplicated Qualified Code(s): J45.20 - Mild intermittent asthma, uncomplicated (4) CKD (chronic kidney disease) stage 3, GFR 30-59 ml/min Code(s): N18.3 - CHRONIC KIDNEY DISEASE, STAGE 3 (MODERATE) Status: Chronic (5) CLL (chronic lymphocytic leukemia) Code(s): C91.90 - LYMPHOID LEUKEMIA, UNSPECIFIED NOT HAVING ACHIEVED REMISSION Status: Chronic (6) Chronic systolic congestive heart failure, NYHA class 3 Code(s): I50.22 - CHRONIC SYSTOLIC (CONGESTIVE) HEART FAILURE Status: Chronic (7) Coronary artery disease Code(s): I25.10 - ATHSCL HEART DISEASE OF [place]' CORONARY ARTERY W/O ANG PCTRS Status: Chronic (8) DM type 2 (diabetes mellitus, type 2) Status: Chronic Qualifiers: Diabetes mellitus watermelon inspector insulin use: without watermelon inspector use Diabetes mellitus complication status: with unspecified complications (9) Dyslipidemia Code(s): E78.5 - HYPERLIPIDEMIA, UNSPECIFIED Status: Chronic (10) H/O prostate cancer Code(s): Z85.46 - PERSONAL HISTORY OF MALIGNANT NEOPLASM OF PROSTATE Status: Chronic (11) HTN (hypertension) Code(s): I10 - ESSENTIAL (PRIMARY) HYPERTENSION Status: Chronic Qualifiers: Hypertension type: essential hypertension Qualified Code(s): I10 - Essential (primary) hypertension (12) Ischemic cardiomyopathy Code(s): I25.5 - ISCHEMIC CARDIOMYOPATHY Status: Chronic (13) Obesity (BMI 30-39.9) Code(s): E66.9 - OBESITY, UNSPECIFIED Status: Chronic (14) Parkinson disease Code(s): G20 - PARKINSON'S DISEASE Status: Chronic (15) Physical deconditioning Code(s): R53.81 - OTHER MALAISE Status: Chronic (16) Horseshoe kidney Code(s): Q63.1 - LOBULATED, FUSED AND HORSESHOE KIDNEY Status: Chronic (17) Hematuria Code(s): R31.9 - HEMATURIA, UNSPECIFIED Status: Resolved - Plan old records reviewed/req, plan discussed w/ family, continue antibiotics, PT/OT , social work manager bladder irrigation now off, hematuria resolved continue PT/OT and will need for placement medication reviewed as above symptomatic treatment currently in meropenam and vancomycin will ask urology how long antibiotics needed and freeman catheter
[2019-03-02] MEDS: Vancomycin HCl 750 MG in Sodium Chloride 0.9% 250 ML 250 ML IVPB SCH (12:03)
--- NOTE | 2019-03-02 12:22 | PRG ---
DATE OF SERVICE: 03/02/2019 SUBJECTIVE: The patient states he is feeling fine. He is not having any catheter bother bladder spasms. No other events overnight. OBJECTIVE: VITAL SIGNS: Temperature 98.2, pulse 88, respirations 18, blood pressure 125/74, and saturation 100% on 2.5 L nasal cannula. GENERAL: No apparent distress. ABDOMEN: Soft, nontender, and nondistended. Positive bowel sounds. : Benavides catheter in place, draining clear yellow urine. ASSESSMENT AND PLAN: An 88-year-old white male with ureterolithiasis and nephrolithiasis, status post ureteroscopy with repeat stent placement. The patient is extremely debilitated, being in the hospital for almost a month. Long-term decision regarding a Benavides catheter will be dependent on a void trial and the patient's functional status. I will leave it to Dr. Tejada decide if he should keep the Benavides catheter in versus undergo void trial and a decision when to perform repeat surgery to try and remove any residual stones. For now, there is nothing further needs to be done from urologic standpoint. Dr. Tejada will resume care tomorrow. Job ID: [id number]
[2019-03-02] MEDS: Simvastatin 40 MG TAB PO SCH (20:56)
[2019-03-03] MEDS: Hyoscyamine Sulfate SL 0.125 mg Tablet SL SCH ×2 (00:34→05:43)
[2019-03-03] MEDS: Meropenem 2 GM in Sodium Chloride 0.9% 100 ML IVPB SCH ×2 (00:34→09:37)
[2019-03-03] MEDS: Carbidopa/Levodopa 25-100 mg Tablet PO SCH ×2 (05:42→16:06)
--- NOTE | 2019-03-03 08:03 | PRG ---
DATE OF SERVICE: 03/03/2019 SUBJECTIVE: The patient is feeling better, in better spirits today. OBJECTIVE: VITAL SIGNS: Are stable. He is afebrile. I's and O's 2200 in, 1100 out. ABDOMEN: Soft, nontender, and nondistended. : Urine output clear. Did not require CBI. LABORATORY DATA: No current labs. Last CBC is stable. Creatinine 1.5 on 02/28/2019. IMPRESSION: Mr. Rowland is an 88-year-old male with history of, 1. 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 2. History of high-grade obstruction of the right ureter, resulting in calyceal rupture, subcapsular bleed, renal failure, resolved. 3. History of atrial fibrillation, previously on Eliquis on hold. 4. History of congestive heart failure. 5. Prostate cancer in remission on Casodex discontinued by Medical Oncology. 6. History of benign prostatic hyperplasia on cystoscopy on Flomax and Avodart. 7. Postop day #5, status post cysto, right ureteroscopy, laser lithotripsy, 6 x 22 double-J ureteral stent exchange. He had multiple obstructing ureteral calculi , one nidus remains at the level of L5-S1 ureter, which has mucosal overgrowth, unable to successfully treat. PLAN: Restaging ureteroscopy in few weeks. Continue IV antibiotics while in- house. Await placement. The patient is surgically stable to dispo to snf facility. When dispo final, we will discontinue Benavides for a voiding trial. Continue BPH medications and IV antibiotic therapy for now until dispo finalized. We will discontinue Levsin if he no longer has bladder spasms of concern. addendum: Called by nursing staff, patient ready for this both to encompass rehabilitation. Voiding trial initiated, voided complete with no significant postvoid residual. Discussed with infectious disease, antibiotics no longer needed. appointment March 20 at 1 PM Job ID: [id number] [facility]
[2019-03-03] MEDS: Finasteride 5 MG TAB PO SCH (09:36)
[2019-03-03] MEDS: Polyethylene Glycol 3350 17 GM Packet PO SCH ×2 (09:36→09:43)
[2019-03-03] MEDS: Dutasteride 0.5 MG CAP PO SCH (09:36)
[2019-03-03] MEDS: Saccharomyces boulardii 250 MG CAP PO SCH (09:36)
[2019-03-03] MEDS: Famotidine 20 MG TAB PO SCH (09:37)
[2019-03-03] MEDS: Allopurinol 100 MG TAB PO SCH (09:37)
[2019-03-03] MEDS: Potassium Chloride 20 MEQ TAB PO SCH (09:37)
[2019-03-03] MEDS: Gabapentin 100 MG CAP PO SCH ×2 (09:37→16:06)
[2019-03-03] MEDS: Tamsulosin HCl 0.4 MG CAP PO SCH (09:37)
[2019-03-03] MEDS: Folic Acid 1 MG TAB PO SCH (09:37)
[2019-03-03] MEDS: Donepezil HCl 5 MG TAB PO SCH (09:38)
[2019-03-03] MEDS: Carvedilol 3.125 MG TAB PO SCH (09:38)
[2019-03-03] MEDS: Vancomycin HCl 750 MG in Sodium Chloride 0.9% 250 ML 250 ML IVPB SCH (13:10)
[2019-03-03 15:33] VITALS: BP 139/70; TEMP 97.9
--- NOTE | 2019-03-04 07:46 | DIS ---
DATE OF ADMISSION: 01/31/2019 DATE OF DISCHARGE: 03/03/2019 PRIMARY CARE PROVIDER: [facility] in [place]. DISPOSITION: Discharged to inpatient rehab. FINAL DIAGNOSES: Septic shock syndrome, urinary tract infection, horseshoe kidney, calculus of ureter, acute renal failure superimposed on chronic kidney disease, metabolic acidosis, chronic lymphocytic leukemia, chronic systolic heart failure , history of prostate carcinoma, Parkinson disease, demand ischemia. DISCHARGE MEDICATIONS: 1. Tylenol 650 mg suppository p.o. q.4 hours p.r.n. 2. Allopurinol 100 mg p.o. daily. 3. Sinemet 1 p.o. q.8 hours. 4. Aricept 5 mg p.o. daily. 5. Pepcid 20 mg p.o. daily. 6. Folic acid 1 mg p.o. daily. 7. Gabapentin 100 mg p.o. t.i.d. 8. Zofran oral dissolving tablets 4 mg q.6 hours p.r.n. 9. MiraLAX 17gms in water daily. 10. Florastor 250 mg p.o. daily. 11. Zoloft 50 mg p.o. daily. 12. Zocor 40 mg p.o. daily. 13. Flomax 0.4 mg p.o. daily. 14. Tramadol 50 mg p.o. q.6 hours p.r.n. MEDICATIONS HELD: 1. Eliquis 2.5 mg a day. 2. Lasix 20 mg a day. 3. Imbruvica 280 mg a day. 4. Topiramate 25 mg p.o. daily. ALLERGIES: NO KNOWN DRUG ALLERGIES. CODE STATUS: DNAR. DIET: Heart healthy, low-sodium. PENDING AT TIME OF DISCHARGE: Nothing. CONSULTATIONS: 1. Dr. Beto Taveras, Pulmonology. 2. Dr. Dagmar Tejada, Genitourinary. 3. Alice Leong, [facility], Oncology. 4. Dr. Jadiel Berkowitz, Cardiology. 5. Dr. Jennifer Vera, Renal. 6. Dr. Riley Alfred, Infectious Disease. 7. Dr. Moises Woodson, Gastroenterology. PROCEDURES: Cystoscopy, right retrograde pyelogram, ureteral stent placement on 01/31/[address] Dagmar Tejada; Dr. Nikolas Darling on 02/03/2019 did femoral dialysis catheter; on 02/26/2019, Dr. Dagmar Tejada did repeat cystoscopy, right retrograde pyelogram, ureteral stent exchange with distal tail in situ, balloon dilatation of distal ureter, laser lithotripsy of multiple ureteral calculi, basket extraction of stone fragments. HOSPITAL COURSE: The patient was admitted through [facility] to the [facility] with nausea, vomiting, and diarrhea. Presenting diagnosis of septic shock was made with lactic acidosis. Cultures were sent. Broad-spectrum antibiotics sent. The patient was noted to have an acute on chronic renal injury, elevated troponins. Appropriate consultations were obtained. Antibiotics were administered. CT scan revealed high-level obstruction of mid to distal right ureteral catheter, multiple stacked calcifications, evidence of rupture of right renal collecting system. The patient underwent cystoscopy and appropriate other procedures by Dr. Tejada on 01/31/2019. Dr. Berkowitz saw the patient in consultation for cardiology. Agreed with holding Eliquis and aspirin for the foreseeable future and cleared for surgery. The patient was seen by Dr. Beto Taveras, Pulmonology, and industrial conveyor belt repairer. At that time, the patient's hemoglobin had dropped from 11.9 to 6.7. The patient was transfused on 02/02. White cell count 28.8 on admission was down to 15.5, and platelet count was normal. The patient was treated with vancomycin and broad-spectrum antibiotics. Vancomycin levels were followed per pharmacy. The patient's initial creatinine was 2.19, a BUN of 29. Lytes were basically balanced. Lactic acid was 4.9. This rapidly dropped down to 1.0. Troponins were 0.03, 0.034, 0.036. On 02/01, his creatinine has increased to 3.96, BUN 45, CO2 had dropped to 15. The lactic acid was now normal. On 02/02, vital signs were stable. He was being transfused. An echocardiogram revealed an EF of 30% to 35%. Hospitalist's progress note; the patient continued to have hematuria requiring flushing of the catheter. By 02/06/2019, the patient was arousable, oriented x2, requiring dialysis, requiring low-dose Levophed during dialysis, heart failure was stable. Hypertension was stable on pressors. On 02/10, abdominal pain resolved. Creatinine had stabilized and was even slightly better. He was having significant urine output, did have some abdominal distention, however, he had good bowel sounds. At this time, his creatinine dropped to 2.84. Lytes were balanced. Hemoglobin was steady at 8.7 plus or minus. White count was normal at 9.7. In fact, he never did grow any definitive positive bacterial culture from blood or urine. The patient has continued to improve. He had a repeat pyelogram by Dr. Tejada on 02/26/2019. Hospitalist's progress note reports still on meropenem, vancomycin. Kidney disease was now stage 3, not requiring dialysis. The patient has continued to improve during his hospital stay. He is now considered stable, ready for transfer to rehab for physical therapy and occupational therapy. His vital signs are stable. Cardiorespiratory exam is benign. His abdomen is benign. His current laboratory on 02/28, hemoglobin 8.5, white count 6.3, platelet count 291,000. Chemistries; sodium 141, potassium 4.6, chloride 111, CO2 of 26, BUN 19, creatinine 1.52. The patient is being transferred to rehab for deconditioning. Antibiotics will be discontinued. He will need followup post rehab with his primary care doctor and with Dr. Tejada. TIME SPENT: 45 minutes spent preparing this discharge. Job ID: [id number] [facility]TDD
[2019-03-04 17:11] LABS: CA Oxalate Monohydrate 65 % (.); CA Phosphate 20 % (.); Color Tan (.); Comment Comment: (.); Stone Size 3x3x3 mm (.); Stone Weight 17.6 mg (.)
== END 2019-03-03 15:15 | DRG 853 ==
LOC: ERS 02:36 → 2NO 04:37 → ERHOLD 04:51 → CCU 06:45 → IMCU/EMU 02-09 10:56 → T4-B 02-13 12:48 → IMCU/EMU 02-26 17:54 → SURG A 03-01 16:12
PROVIDERS: ADMIT Hospitalist; ATTEND Hospitalist
PROC: 0T768DZ Dilation of Right Ureter with Intraluminal Device, Via Natural or Artificial Opening Endoscopic (ICD-10-PCS; principal; 2019-01-31)
PROC: 3E033XZ Introduction of Vasopressor into Peripheral Vein, Percutaneous Approach (ICD-10-PCS; 2019-01-31)
PROC: BT1DZZZ Fluoroscopy of Right Kidney, Ureter and Bladder (ICD-10-PCS; 2019-01-31)
PROC: 30233N1 Transfusion of Nonautologous Red Blood Cells into Peripheral Vein, Percutaneous Approach (ICD-10-PCS; 2019-02-02)
PROC: 06HY33Z Insertion of Infusion Device into Lower Vein, Percutaneous Approach (ICD-10-PCS; 2019-02-03)
PROC: 5A1D70Z Performance of Urinary Filtration, Intermittent, Less than 6 Hours Per Day (ICD-10-PCS; 2019-02-03)
PROC: 0T768DZ Dilation of Right Ureter with Intraluminal Device, Via Natural or Artificial Opening Endoscopic (ICD-10-PCS; 2019-02-26)
PROC: 0T9D80Z Drainage of Urethra with Drainage Device, Via Natural or Artificial Opening Endoscopic (ICD-10-PCS; 2019-02-26)
PROC: 0TC68ZZ Extirpation of Matter from Right Ureter, Via Natural or Artificial Opening Endoscopic (ICD-10-PCS; 2019-02-26)
PROC: 0TP98DZ Removal of Intraluminal Device from Ureter, Via Natural or Artificial Opening Endoscopic (ICD-10-PCS; 2019-02-26)
PROC: BT1DZZZ Fluoroscopy of Right Kidney, Ureter and Bladder (ICD-10-PCS; 2019-02-26)
PROC: 0TP98DZ Removal of Intraluminal Device from Ureter, Via Natural or Artificial Opening Endoscopic (ICD-10-PCS; 2019-02-26)
DX: A41.9 Sepsis, unspecified organism (principal); R65.21 Severe sepsis with septic shock; G93.41 Metabolic encephalopathy; E87.2 Acidosis; C91.10 Chronic lymphocytic leukemia of B-cell type not having achieved remission; I50.22 Chronic systolic (congestive) heart failure; N17.9 Acute kidney failure, unspecified; N13.6 Pyonephrosis; I42.0 Dilated cardiomyopathy; I24.8 Other forms of acute ischemic heart disease; I13.0 Hypertensive heart and chronic kidney disease with heart failure and stage 1 through stage 4 chronic kidney disease, or unspecified chronic kidney disease; Z66 Do not resuscitate; D63.1 Anemia in chronic kidney disease; N18.3 Chronic kidney disease, stage 3 (moderate); E78.5 Hyperlipidemia, unspecified; E11.22 Type 2 diabetes mellitus with diabetic chronic kidney disease; G20 Parkinson's disease; I25.10 Atherosclerotic heart disease of native coronary artery without angina pectoris; F32.9 Major depressive disorder, single episode, unspecified; M19.90 Unspecified osteoarthritis, unspecified site; J45.20 Mild intermittent asthma, uncomplicated; I48.2 Chronic atrial fibrillation; N28.89 Other specified disorders of kidney and ureter; D63.0 Anemia in neoplastic disease; I25.5 Ischemic cardiomyopathy; D53.9 Nutritional anemia, unspecified; N40.0 Benign prostatic hyperplasia without lower urinary tract symptoms; E66.9 Obesity, unspecified; R31.9 Hematuria, unspecified; K59.00 Constipation, unspecified; E87.8 Other disorders of electrolyte and fluid balance, not elsewhere classified; E87.6 Hypokalemia; Z90.49 Acquired absence of other specified parts of digestive tract; Q63.1 Lobulated, fused and horseshoe kidney; Z87.440 Personal history of urinary (tract) infections; Z79.84 Long term (current) use of oral hypoglycemic drugs; Z95.810 Presence of automatic (implantable) cardiac defibrillator; Z79.01 Long term (current) use of anticoagulants; Z79.899 Other long term (current) drug therapy; Z85.46 Personal history of malignant neoplasm of prostate; Z68.28 Body mass index [BMI] 28.0-28.9, adult
CPT/HCPCS: 36415; 36430; 36556; 71045; 74022; 74176; 74420; 80048; 80053; 80202; 81001; 82365; 82553; 83605; 83690; 83735; 84100; 84484; 85025; 86850; 86900; 86901; 87040; 87086; 87324; 87340; 87449; 88300; 90935; 93005; 93306; 94640; 94664; 96361; 96365; 96375; C1758; C1769; G0257; J1100; J1642; J1644; J1940; J2001; J2020; J2185; J2250; J2270; J2405; J3010; J3370; J3490; J7050; J7070; J7620; P9016; Q0163; S0028

== ENCOUNTER 2019-03-20 13:57 | Inpatient (IN) | payer MEDICARE, OTHER ==
[2019-03-20] MEDS ORDERED: Heparin 1,000 UNITS/ML VIAL ONE (15:00)
[2019-03-20] MEDS ORDERED: Furosemide 40 MG/4 ML VIAL SLOW IVP SCH (16:00)
[2019-03-20] MEDS ORDERED: Acetaminophen 650 MG Suppository PR PRN (16:01)
[2019-03-20] MEDS ORDERED: Acetaminophen 325 MG TAB PO PRN (16:01)
--- NOTE | 2019-03-20 18:09 | RAD ---
CHEST ONE VIEW: 03/20/19 COMPARISON: 09/15/16, 03/12/19, 02/07/19, 05/03/18. HISTORY: CHF exacerbation. FINDINGS: Stable left sided transvenous defibrillator. There is cardiomegaly and atherosclerosis of the aorta. Obscuration of the left hemidiaphragm due to pleural effusion with adjacent parenchymal changes. Adeq uate aeration of the left lung. There is a well circumscribed mass in the right hemithorax, unchanged from previous examination. The mass measures 3 cm. No pneumothorax. IMPRESSION: 1. Stable transvenous defibrillator. 2. Atherosclerosis. 3. Cardiomegaly with left sided pleural effusion and parenchymal change. There is evidence for c ongestive heart failure. 4. Stable mass in the right hemithorax. POS: NELLA
--- NOTE | 2019-03-20 19:09 | HP ---
PRIMARY CARE PHYSICIAN: [facility] in [place]. Admitting team will be the hospitalist. CHIEF COMPLAINT: Shortness of breath. HISTORY OF PRESENT ILLNESS: Mr. Rowland is an 88-year-old man, who was recently discharged from [facility] after a month long stay for septic shock syndrome, urinary tract infection, horseshoe kidney, calculus of the ureter, acute renal failure superimposed on chronic kidney disease, metabolic acidosis, CLL, chronic systolic heart failure, history of prostate carcinoma, Parkinson disease, and demand ischemia. He has been over at the rehab, undergoing therapy, and was seen today by Dr. Tejada for a preop visit for possible removal of renal calculi on 03/24/2019. While in the office, Dr. Tejada was concerned for CHF exacerbation. The patient has some pitting edema, although he denied any increased work of breathing or shortness of breath, and she sent him over to the hospital for direct admission for evaluation of CHF and Cardiology consult. 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 The patient also had a followup CT scan on 03/14/2019 with impression of horseshoe kidney with stable right-sided double-J ureteral stent. The calcifications are again noted within the right ureter along the course of the stent. Extensive bilateral renal calculi are noted. Extensive subcapsular fluid collection posteriorly on the right and left, decreased in density when compared to prior exam, but increased in size suggesting evolution of extensive subcapsular hematoma formation. Developing Page kidney cannot be excluded, not well evaluated without contrast media. Clinical correlation is essential. Nonspecific pleural and parenchymal opacities within the lung bases, incompletely imaged right lower lobe pulmonary parenchymal mass. The patient is admitted to the Telemetry for further evaluation and Cardiology consult. PAST MEDICAL HISTORY: As above; 1. CLL. 2. Hypertension. 3. Kidney stones. 4. Congestive heart failure. 5. Arrhythmias. 6. He has an AICD. 7. Microcytic anemia. 8. Prostate cancer. 9. Diabetes. 10. Hyperlipidemia. 11. Parkinson's. 12. CHF with last EF of 30% to 35%. 13. Chronic UTIs. 14. Renal calculi. PAST SURGICAL HISTORY: 1. Eye surgery. 2. Gallbladder stent removed. 3. Cholecystectomy. 4. Heart surgery as an . 5. Tonsillectomy. The patient on the last hospital visit had a cystoscopy, right retrograde pyelogram, ureteral stent placement on 01/31/2019. Dr. Darling put in a femoral dialysis catheter, and then on 02/26/2019, Dr. Tejada did a repeat cystoscopy, right retrograde pyelogram, urethral stent exchange with distal tail in situ, balloon dilatation of the distal ureter, laser lithotripsy with multiple ureteral calculi, basket extraction of stone fragments. ALLERGIES: NO KNOWN DRUG ALLERGIES, BUT IS INTOLERANT OF WHEY. REPORTS IT GIVES HIM DIARRHEA. HOME MEDICATIONS: 1. Zyloprim 100 mg p.o. daily. 2. Eliquis 2.5 mg p.o. b.i.d. 3. Carbidopa-levodopa ODT 25 mg-100 mg p.o. t.i.d. 4. Coreg 3.125 mg p.o. daily. 5. Vitamin D 1000 units p.o. daily. 6. Aricept 5 mg p.o. daily. 7. Folic acid 1 mg p.o. daily. 8. Lasix 20 mg p.o. daily. 9. Neurontin 100 mg p.o. t.i.d. 10. Melatonin 6 mg p.o. at bedtime. 11. K-Dur 20 mEq p.o. daily. 12. Sertraline 100 mg p.o. daily. 13. Zocor 40 mg p.o. at bedtime. 14. Regular Tylenol 650 mg p.o. q.4 hours as needed. 15. Avodart 0.5 mg p.o. daily. 16. Finasteride 5 mg p.o. daily. 17. Zofran 4 mg p.o. q.6 hours as needed. 18. MiraLAX 17 g p.o. daily as needed. 19. Florastor 250 mg p.o. daily. 20. Flomax 0.4 mg p.o. b.i.d. 21. Ultram 50 mg p.o. q.4 hours as needed for pain. SOCIAL HISTORY: The patient has been at the rehab since discharge on 03/03/2019. Before that, he lived at home with his son. Son is power of finance attorney. FAMILY HISTORY: Has been reviewed and noncontributory to current presentation. REVIEW OF SYSTEMS: The patient denied any fever or chills. Reports that he has been improving at the rehab and has been able to complete his 3 hours of therapy per day. Reports that he is tired by the end of the day. Denies any increased dyspnea or cough. Denied any nausea, vomiting, diarrhea, or constipation. All other systems are reviewed and are negative unless mentioned in the HPI. PHYSICAL EXAMINATION: VITAL SIGNS: On arrival; temp is 98.2, pulse is 90, respirations are 18, pO2 sats are 97% on 2 L of O2, blood pressure 148/76. GENERAL APPEARANCE: He is alert and oriented. He is not on any acute distress. He answers questions appropriately. HEENT: Pupils are equally round and reactive to light. Mucous membranes are moist. No JVD is noted. RESPIRATORY: Breath sounds decreased at the bases. No rales or wheezes. Symmetric expansion. CARDIOVASCULAR: Normal rate and rhythm. No murmurs. There is some bilateral pitting edema. ABDOMEN: Soft. Bowel sounds are heard. EXTREMITIES: Upper extremities; motor strength normal. Pulses equal bilaterally. Inspection normal. Lower extremities; normal strength, normal range of motion, normal inspection. Pedal pulses equal bilaterally. Pitting edema noted bilaterally. SKIN: Warm, dry, normal in color. Cap refill less than 3 seconds. NEUROLOGIC: He is alert and oriented. Cranial nerves 2 through 12 are intact. LABORATORY DATA: Lab work done today at the rehab; white blood cell count 6, red blood cells 2.64, hemoglobin is 8, hematocrit is 25.5. Sodium 141, potassium 4.7, chloride 107, carbon dioxide 29, gap is 10, BUN is 25, creatinine is 1.28, estimated GFR is 53, glucose is 93, AST 40, ALT less than 7, and alk phos is 133. PLAN/ASSESSMENT: 1. Concern for congestive heart failure exacerbation. We will restart Lasix, started daily and IV. We have asked the Heart Failure Team to consult. 2. History of horseshoe kidney with multiple renal and urethral calculi as well as history of high-grade obstruction of the right ureter resulting in calyceal rupture, subcapsular bleed. Dr. Tejada initiated the direct admission and consult has been placed for her to continue. She has told Dr. Quesada, who is seeing this patient with me that she plans to take him back to the OR on 03/24/2019. 3. Parkinson disease. We will restart home medications. 4. Chronic lymphocytic leukemia. We will monitor. Continue home medications. 5. Gastrointestinal prophylaxis will be continued. 6. Chronic anticoagulation, was on Eliquis, but held at discharge, will be held again. Per Dr. Tejada's requests for the patient not to have any anticoagulations pending surgery. 7. We will add SCDs for deep venous thrombosis prophylaxis. 8. Case discussed with Dr. Quesada, who agrees with plan. 9. Hospital course pending clinical findings. Job ID: [id number]
[2019-03-20] MEDS: Atorvastatin Calcium 20 MG TAB PO SCH (20:55)
[2019-03-20] MEDS: Gabapentin 100 MG CAP PO SCH (20:55)
[2019-03-20] MEDS: Melatonin 3 MG TAB PO SCH (20:55)
[2019-03-20] MEDS: Carbidopa/Levodopa 25-100 mg Tablet PO SCH (20:55)
[2019-03-20] MEDS: Tamsulosin HCl 0.4 MG CAP PO SCH (20:55)
--- NOTE | 2019-03-20 21:58 | CON ---
DATE OF CONSULTATION: PRIMARY CARE PHYSICIAN: Delon Cruz MD [facility] PREVIOUS UROLOGIST: Soumya Mcknight MD HISTORY OF PRESENT ILLNESS: Mr. Rowland is an 88-year-old male with history of prostate cancer, previously on Casodex, horseshoe kidney, multiple bilateral renal stone moiety. He was admitted in January 2019, whom I had seen the patient as an inpatient consultation as he presented with septic shock, high-grade right renal moiety obstruction due to multiple obstructing right ureteral calculi, with subcapsular bleed, calyceal rupture. He underwent ureteral stent placement, was observed in the ICU setting for protracted period of time and has subsequently been referred to the rehab and followed by Dr. Cruz. He did undergo ureteroscopy , laser lithotripsy, with negative urine culture. Treatment of his ureteral calculi was very challenging as he has a horseshoe kidney and deviated ureter with multiple ureteral calculi. I was able to make progress on most of his ureteral stone burden, however, one remained in nidus in situ as it was imbedded in the ureter due to chronic obstruction. He has had an indwelling ureteral stent which was exchanged on February 26, 2019, and subsequently in rehab. Recently, he had a low-grade temperature in which blood culture was obtained, negative, no significant CBC, leukocytosis of concern. He did undergo restaging CT, chest x-ray which shows pulmonary edema, Dr. Shin has been notified. He was informed to see Cardiology, however, did not show for the appointment as he felt deconditioned. He presented to my office for further evaluation, given his CHF exacerbation, was advised regarding medical observation. Long discussion with patient's PCP, Dr. Cruz, and family, we discussed options of conservative observation, palliative care given his age, comorbidities, and frail nature. With further consultation aided by Dr. Cruz, the patient desires along with family to proceed with treatment of his residual stone burden with full understanding the complexity of his case and the patient's frail nature. They have been fully informed regarding possible perioperative morbidity and mortality. He was admitted for medical evaluation, to rule out CHF exacerbation and subsequent clearance to proceed and medical optimization. PAST MEDICAL HISTORY: Asthma; cardiomyopathy, followed by Dr. hSin; dyslipidemia; type 2 diabetes; hypertension; history of heart failure; Parkinson 's; obesity; history of prostate cancer, previously on Casodex, on surveillance; history of chronic renal insufficiency, followed by Dr. Vera; he has history of lymphocytic leukemia, followed by Dr. Mccann. SURGICAL HISTORY: Laparoscopic cholecystectomy in October 2014, tonsillectomy, pacemaker defibrillator, retinal surgery. He underwent cystoscopy, circumcision , bladder irrigation of bladder stones by Dr. Petty in April 2018. Status post cysto, right 6 x 22 stent January 31. Status post cysto, right ureteroscopy, laser lithotripsy, stent exchange on 02/26/2019. SOCIAL HISTORY: He is a smoker, quit in 1977. CURRENT MEDICATIONS: Include; 1. Tylenol. 2. Allopurinol. 3. Lipitor. 4. Sinemet. 5. Coreg. 6. Vitamin D. 7. Aricept. 8. Dutasteride. 9. Proscar. 10. Flomax. 11. Lasix. 12. Neurontin. 13. Melatonin. 14. MiraLAX. 15. . 16. Tamsulosin. He was previously on anticoagulation with Eliquis due to atrial fibrillation. This has been held as he presented with gross hematuria and subcapsular bleed. REVIEW OF SYSTEMS: A 10-point review of systems as above, otherwise noncontributory. PHYSICAL EXAMINATION: VITAL SIGNS: Stable. He is 98, 19, 80, 97% on 2 L, 148/76. Weight is 233. GENERAL: The patient is an elderly frail male, cooperative to physical exam, pleasant. HEENT: Grossly unremarkable. HEART: Regular rate. LUNGS: Has decreased inspiratory effort. Distant lung sounds. ABDOMEN: Morbidly obese, protuberant. EXTREMITIES: Bilateral pitting edema. PSYCHIATRIC: Appears to be appropriate. NEUROLOGIC: Difficult to evaluate as mostly the patient is bedridden. Sensation appears to be intact. ALLERGIES: WHEY CAUSES DIARRHEA. OTHERWISE, NO KNOWN DRUG ALLERGIES. HE IS A FULL CODE. PERTINENT LABORATORY DATA: White count is 6, hemoglobin 8, platelets 338. No recent Coags. Creatinine is 1.2. Baseline creatinine variable from 1.4 to 1.3. He was previously admitted with a creatinine of 6.2. Hemoglobin A1c is 5.9 in December 2014. PSA is 0.05 in April 2018. UA in March 11 does demonstrate a contaminated specimen, 4 to 6 rbc's, greater than 300 protein, 7 to 10 rbc's, 21 to 50 wbc's. Previous stone analysis in February 2019; 55% calcium monohydrate, calcium phosphate moiety. IMAGING: CT of the abdomen and pelvis on March [address] Cruz which I have reviewed myself with the radiologist, CT noncontrast. Subcapsular renal fluid collection noted smaller compared to 01/31/2019, consistent with expected evolution of previous subcapsular hemorrhage. No new hemorrhage is seen. No evidence of hydronephrosis. Bilateral renal stone moiety, has previous horseshoe kidney. There are two ureteral calculi, 4 mm, 7 mm in the mid to distal ureter at the level of L5, S1, S2 respectively. IMPRESSION: Mr. Rowland is an 88-year-old male deconditioned with multiple comorbidities; 1. History of prostate cancer. 2. History of horseshoe kidney. 3. History of atrial fibrillation. 4. Congestive heart failure. 5. History of chronic lymphocytic leukemia previously admitted due to urosepsis; however, culture negative with obstructing ureteral calculi, multiple. He underwent ureteroscopy, laser lithotripsy was very challenging due to anterior deviated ureter as he has a horseshoe kidney and his body habitus. He has residual stone nidus , which was very difficult to treat as it was imbedded. The patient and family desires us to proceed with staging ureteroscopy to clear his ureteral stone burden. Extensive discussion with patient, and son at bedside. I informed them regarding high risk surgery given his comorbidities and pre-existing medical issues and body habitus. I informed them that I cannot guarantee stone burden clearance in the ureter as appeared to be impacted. However, they desire us to try to proceed to clear his ureter if it is possible with full understanding regarding significant risks. He was admitted with CHF exacerbation, I would recommend medical optimization and Cardiology eval and clearance. I did speak with Dr. Shin regarding the patient's course, we will optimize best they can to provide patient euvolemic state. Recheck UA c and S, straight cath is to be obtained, Infectious Disease has been reconsulted regarding recommendations of antibiotic regimen. Anticoagulation contraindicated due to upcoming surgery, for now meropenem lathe operator contact lens to the OR pending infectious disease input. Job ID: [id number] [facility]
[2019-03-20 22:18] LABS: Bacteria/HPF None Seen HPF (None Seen); Bilirubin Negative (Negative); Blood, Urine Negative (Negative); Clarity Clear (Clear); Glucose, Urine (Dipstick) Normal (Negative); Leukocyte 75 Leu/uL (Negative); Nitrite Negative (Negative); Protein, Urine (Dipstick) Negative (Neg-Trace); RBC/HPF 0-3 HPF (0-3); Squamous Epithelial 0-3 HPF (0-3); Urobilinogen Normal mg/dL (Less than 2)
[2019-03-21 05:21] LABS: #Eosinphils 0.1 thou/uL (0.0-0.7); #Lymphocytes 1.2 thou/uL (1.20-3.40); #Monocytes 0.7 thou/uL (0.11-0.59); #Neutrophils 4.5 thou/uL (1.40-6.50); %Basophils 0.1 % (0.0-1.0); %Eosinophils 2.1 % (0.0-10.0); %Lymphocytes 18.2 % (21.0-51.0); %Monocytes 10.1 % (0.0-10.0); %Neutrophils 69.5 % (42.0-75.0); Hemoglobin 7.5 g/dL (14.0-18.0); Mean Corpuscular HGB CONC 32.6 g/dL (32.0-36.0); Mean Corpuscular Hemoglobin 30.9 pg (27.0-31.0); Mean Corpuscular Volume 94.7 fL (78.0-98.0); Mean Platelet Volume 6.1 fL (7.4-10.4); Platelet Count 354 thou/uL (130-400); RBC Distribution Width 14.5 % (11.5-14.5); Red Blood Cell (RBC) Count 2.43 mill/uL (4.70-6.10); White Blood Cell (WBC) Count 6.4 thou/uL (4.8-10.8)
[2019-03-21 05:26] LABS: INR-International Normal Ratio 1.2; Prothrombin Time 15.3 SEC (12.0-14.7)
[2019-03-21 05:47] LABS: ALT (SGPT) 8 U/L (8-55); AST (SGOT) 31 U/L (5-34); Albumin 2.2 g/dL (3.4-4.8); Alkaline Phosphatase 116 U/L (40-110); Anion Gap 12 mmol/L (10-20); BUN (Urea Nitrogen) 25 mg/dL (8.4-25.7); Bilirubin, Total 0.3 mg/dL (0.2-1.2); Calc. Creatinine Clearance 53 mL/min (70-130); Calcium 8.3 mg/dL (7.8-10.44); Carbon Dioxide 26 mmol/L (23-31); Chloride 107 mmol/L (98-107); Estimated GFR-MDRD 45; Globulin 3.3 g/dL (2.4-3.5); Glucose 140 mg/dL (83-110); Potassium 4.1 mmol/L (3.5-5.1); Protein, Total 5.5 g/dL (5.8-8.1); Sodium 141 mmol/L (136-145)
[2019-03-21 08:01] LABS: PTT 39.6 SEC (22.9-36.1)
--- NOTE | 2019-03-21 08:11 | PRG ---
DATE OF SERVICE: 03/21/2019 SUBJECTIVE: The patient without complaints. Denies chest pain or shortness of breath. OBJECTIVE: VITAL SIGNS: Stable, 98, 86, 92, 95% on 2 L, 112/57. ABDOMEN: Soft, obese. No rigidity. No rebound. No CVA tenderness. : Uncircumcised. No blood at the meatus. Testes are descended. PERTINENT LABORATORY DATA: 1. White count 6.4, hemoglobin 7.5, platelet 354. INR is 1.2. Renal function stable with creatinine 1.48, recheck UA C and S obtained yesterday demonstrates 0-3 RBCs, 4-6 WBCs, no epithelials, no bacteria. Repeat urine culture is pending. 2. 03/11 urine culture demonstrates mixed kayla, but nonspecific yeast. Blood culture negative. IMPRESSION AND PLAN: 1. Mr. Rowland is an 88-year-old male with history of prostate cancer in remission. 2. History of horseshoe kidney. 3. History of atrial fibrillation. 4. History of congestive heart failure. 5. History of chronic lymphocytic leukemia. 6. History of multiple bilateral renal calculi. 7. History of right obstructing ureteral stone status post stent ureteroscopy few weeks ago. 8. Congestive heart failure exacerbation. Chest x-ray reviewed demonstrating pulmonary edema. He is admitted for optimization. Appreciate Hospitalist, Cardiology consult. I did speak with Dr. Shin yesterday regarding this patient. He requested that we contact on-call Cardiology to provide patient cardiac optimization. He will most likely require diuresis. Consent in chart. His culture is negative. We will proceed with ureteroscopy laser lithotripsy on Sunday unless contraindicated by Cardiology. Infectious Disease has also been consulted due to his prior urine culture. We will provide meropenem agronomy technician to OR unless other recommendations provided by Dr. Alfred. Anticoagulation is contraindicated due to her upcoming surgery. Job ID: [id number] [facility]
[2019-03-21] MEDS ORDERED: Furosemide 40 MG/4 ML VIAL SLOW IVP SCH (09:00)
[2019-03-21] MEDS: Saccharomyces boulardii 250 MG CAP PO SCH (09:18)
[2019-03-21] MEDS: Meropenem 2 GM in Sodium Chloride 0.9% 100 ML IVPB SCH ×2 (09:18→21:02)
[2019-03-21] MEDS: Dutasteride 0.5 MG CAP PO SCH (09:18)
[2019-03-21] MEDS: Tamsulosin HCl 0.4 MG CAP PO SCH ×2 (09:19→21:01)
[2019-03-21] MEDS: Carbidopa/Levodopa 25-100 mg Tablet PO SCH ×3 (09:19→21:01)
[2019-03-21] MEDS: Donepezil HCl 5 MG TAB PO SCH (09:19)
[2019-03-21] MEDS: Folic Acid 1 MG TAB PO SCH (09:19)
[2019-03-21] MEDS: Allopurinol 100 MG TAB PO SCH (09:19)
[2019-03-21] MEDS: Finasteride 5 MG TAB PO SCH (09:19)
[2019-03-21] MEDS: Carvedilol 6.25 MG TAB PO SCH (09:19)
[2019-03-21] MEDS: Gabapentin 100 MG CAP PO SCH ×3 (09:19→21:01)
[2019-03-21] MEDS: Polyethylene Glycol 3350 17 GM Packet PO SCH (09:21)
--- NOTE | 2019-03-21 15:16 | CON ---
DATE OF CONSULTATION: 03/21/2019 REASON FOR CONSULTATION: Followup recommendations on antimicrobial management perioperatively. HISTORY OF PRESENT ILLNESS: An 88-year-old patient, well known to me from prior visits, who has a history of Parkinson disease or essential tremors, ischemic cardiomyopathy with pacemaker, prostate cancer in remission, type 2 diabetes, and recently was diagnosed CLL as well as extensive nephrolithiasis and horseshoe kidneys. The admission was for obstructive uropathy with sepsis. The patient had a stent placed and all the cultures have been negative for a while. He did have a little bit of hemorrhage, but it turned around and improved. His kidney function improved and the sepsis syndrome resolved. He was treated with broad-spectrum antimicrobial therapy and he was transferred to rehab and then Dr. Tejada evaluated him and admitted him to tune him up prior to the upcoming procedure to remove the remainder of stone burden in the right side. He is having some issues with delirium with some behavioral changes. Currently, he is awake. He knows he is in the hospital. Denies headaches. No visual symptoms, sore throat, odynophagia, or dysphagia. No dyspnea or chest pain. Mild to moderate pain in the right side of his abdomen, mostly around the flank. No bladder distention. He has a chronic deformities in lower extremities, but he is able to move all extremities. PAST MEDICAL HISTORY: Type 2 diabetes; CLL, on Imbruvica; severe nephrolithiasis; horseshoe kidneys; prior stenting and lithotripsy; urosepsis; hypertension; CHF with AICD placement; type 2 diabetes; and essential tremor. PAST SURGICAL HISTORY: Cholecystectomy, nephrolithiasis with stenting, and lithotripsy. SOCIAL HISTORY: Lives in [place] with son. Retired. Never a smoker. ALLERGY HISTORY: No known drug allergies. CURRENT MEDICATIONS: 1. Tylenol. 2. Zyloprim. 3. Lipitor. 4. Sinemet. 5. Coreg. 6. Vitamin D. 7. Aricept. 8. Avodart. 9. Proscar. 10. Folvite. 11. Lasix. 12. Neurontin. 13. Melatonin. 14. Meropenem. PHYSICAL EXAMINATION: VITAL SIGNS: Temperature normal. Other vital signs with a BP 114/61, pulse 61, respirations 20, O2 saturation 97% on 2 L nasal cannula. SKIN: Peripheral IV access. Does not have a Benavides catheter. No lymphadenopathy. GENERAL: Appears chronically ill, somewhat disheveled, awake, pleasant. HEENT: Ocular movements conjugate. Sclerae white. Oral cavity moist. Quite a few missing teeth. NECK: Supple. No jugular vein distention. LUNGS: Symmetric air entry. S1 and S2. Regular rate. No S3 or S4. ABDOMEN: Soft with tenderness in the right side, right upper quadrant and right flank. Bowel sounds present. No bladder distention. EXTREMITIES: Deformities in the ankles. Able to wiggle his toes and move his ankles and feet, but is diffusely weak. NEUROLOGIC: He is awake. He knows where he is. Recognizes family members. LABORATORY DATA: White cell count 6.4, hemoglobin 7.5, MCV 94, platelets 354, with 18% lymphocytes. His GFR is at 45, which is better than previously. Alkaline phosphatase 116, transaminases normal, bilirubin 0.3, albumin 2.2. Albumin is lower than in the past. Globulin 3.3. Microbiology with no growth at 12 hours from urine sample. The last positive culture was from December 25, 2014 with Klebsiella, which was pretty susceptible phenotype. IMAGING: We have an abdomen and pelvis CT with horseshoe kidney and a right- sided double-J ureteral stent, calcifications within the right ureter along the course of the stent, extensive bilateral renal calculi are noted. There is subcapsular fluid collection in the right and left, which is decreased in density when compared with prior exam, but increased in size suggesting evolution of hematoma formation. No obstructive uropathy on the left. ASSESSMENT: Nephrolithiasis with urosepsis with negative cultures. Chronic lymphocytic leukemia, on Imbruvica. Prior obstructions with recent stenting, ischemic cardiomyopathy with AICD in place, and subcapsular fluid collection, which increased in size, but has decreased in density when compared with prior exam. This seems to be an evolution of previous subcapsular hematoma. Nonspecific pleural and parenchymal opacities in lung bases. DISCUSSION: The patient is being prepared for removal of stones on the right side and cultures and then will be continued on antimicrobial therapy assuming that the stones are colonized. The difficulty here is the lack of microbiological definition in view of the negative previous cultures and we will have to assume resistant pathogen until proven otherwise and continue meropenem. This is in preparation for the upcoming procedure. He does have those mental state changes, which are likely delirium rather than CVA. May have to image his brain depending on clinical progress. The kidney capsular hematoma seems to be enlarging, but there does not appear to have any new blood in it, it is just probably change in the characteristic of the fluid collection. Contrast was not given. The possibility of an abscess in that area is something to be considered that appears to be less likely though. In view of the normal white cell count and lack of left shift, one would expect a significant left shift if this collection had an inflammatory character. Job ID: [id number] [facility]
--- NOTE | 2019-03-21 16:37 | PDOC.HOSPP ---
- Subjective Subjective: Doing ok. No complaints. His reports that he has some episodes in which he in which he will rather abruptly become a little agitated and mean. Then he returns to his normal baseline. Concerned that he needs psych evaluation. - Objective Vital Signs & Weight: Vital Signs (12 hours) Temp Pulse Resp BP BP BP BP 03/21/19 15:14 98.3 F 66 24 H 120/62 03/21/19 12:00 98.7 F 61 20 114/61 03/21/19 09:19 110/76 03/21/19 08:50 110/55 L 104/48 L Pulse Ox 03/21/19 15:14 94 L 03/21/19 12:00 97 03/21/19 09:19 03/21/19 08:50 Weight Weight 232 lb 8 oz I&O: 03/20/19 03/21/19 03/22/19 06:59 06:59 06:59 Intake Total 440 Output Total 125 Balance 315 Result Diagrams: 03/21/19 04:47 03/21/19 04:47 Additional Labs: Accuchecks 03/20/19 03/20/19 19:39 16:39 POC Glucose 145 H 107 Hospitalist ROS - Medication Medications: Active Medications Generic Name Dose Route Start Last Admin Trade Name Vikki PRN Reason Stop Dose Admin Allopurinol 100 mg 03/21/19 09:00 03/21/19 09:19 Zyloprim PO 100 mg DAILY BERNARDINO Administration Atorvastatin Calcium 20 mg 03/20/19 21:00 03/20/19 20:55 Lipitor PO 20 mg HS BERNARDINO Administration Carbidopa/Levodopa 1 tab 03/20/19 21:00 03/21/19 15:45 Sinemet 25-100 PO 1 tab TID BERANRDINO Administration Carvedilol 6.25 mg 03/21/19 09:00 03/21/19 09:19 Coreg PO 6.25 mg DAILY BERNARDINO Administration Cholecalciferol 1,000 units 03/21/19 09:00 03/21/19 09:19 Vitamin D3 PO 1,000 units DAILY BERNARDINO Administration Donepezil HCl 5 mg 03/21/19 09:00 03/21/19 09:19 Aricept PO 5 mg DAILY BERNARDINO Administration Dutasteride 0.5 mg 03/21/19 09:00 03/21/19 09:18 Avodart PO 0.5 mg DAILY BERNARDINO Administration Finasteride 5 mg 03/21/19 09:00 03/21/19 09:19 Proscar PO 5 mg DAILY BERNARDINO Administration Folic Acid 1 mg 03/21/19 09:00 03/21/19 09:19 Folvite PO 1 mg DAILY BERNARDINO Administration Furosemide 40 mg 03/21/19 09:00 03/21/19 09:20 Lasix SLOW IVP 40 mg DAILY BERNARDINO Administration Gabapentin 100 mg 03/20/19 21:00 03/21/19 15:45 Neurontin PO 100 mg TID BERNARDINO Administration Meropenem 2 gm/ Sodium 100 mls @ 100 mls/hr 03/21/19 10:00 03/21/19 09:18 Chloride IVPB 100 mls Q8H BERNARDINO Administration Melatonin 6 mg 03/20/19 21:00 03/20/19 20:55 Melatonin PO 6 mg HS BERNARDINO Administration Polyethylene Glycol 17 gm 03/21/19 09:00 03/21/19 09:21 Miralax PO Not Given DAILY BERNARDINO Saccharomyces Boulardii 250 mg 03/21/19 09:00 03/21/19 09:18 Florastor PO 250 mg DAILY BERNARDINO Administration Tamsulosin HCl 0.4 mg 03/20/19 21:00 03/21/19 09:19 Flomax PO 0.4 mg BID BERNARDINO Administration - Exam General Appearance: NAD, awake alert Neck: supple, symmetric Heart: RRR, no murmur, no gallops, no rubs, normal peripheral pulses Respiratory: CTAB, no wheezes, no rales, no ronchi, normal chest expansion, no tachypnea, normal percussion Gastrointestinal: soft, non-tender, non-distended, normal bowel sounds Extremities: no cyanosis, 1+ LE edema Skin: normal turgor Musculoskeletal: generalized weakness Psychiatric: not oriented Psychiatric - other findings: flat affect Hosp A/P (1) Acute on chronic systolic (congestive) heart failure Code(s): I50.23 - ACUTE ON CHRONIC SYSTOLIC (CONGESTIVE) HEART FAILURE Status : Acute (2) Anemia in CKD (chronic kidney disease) Code(s): N18.9 - CHRONIC KIDNEY DISEASE, UNSPECIFIED; D63.1 - ANEMIA IN CHRONIC KIDNEY DISEASE Status: Acute (3) Nephrolithiasis Status: Acute (4) Ureterolithiasis Code(s): N20.1 - CALCULUS OF URETER Status: Acute (5) Asthma Code(s): J45.909 - UNSPECIFIED ASTHMA, UNCOMPLICATED Status: Chronic Qualifiers: Asthma severity: mild Asthma persistence: intermittent Asthma complication type: uncomplicated Qualified Code(s): J45.20 - Mild intermittent asthma, uncomplicated (6) CKD (chronic kidney disease) stage 3, GFR 30-59 ml/min Code(s): N18.3 - CHRONIC KIDNEY DISEASE, STAGE 3 (MODERATE) Status: Chronic (7) CLL (chronic lymphocytic leukemia) Code(s): C91.90 - LYMPHOID LEUKEMIA, UNSPECIFIED NOT HAVING ACHIEVED REMISSION Status: Chronic (8) Chronic systolic congestive heart failure, NYHA class 3 Code(s): I50.22 - CHRONIC SYSTOLIC (CONGESTIVE) HEART FAILURE Status: Chronic (9) Coronary artery disease Code(s): I25.10 - ATHSCL HEART DISEASE OF [place] CORONARY ARTERY W/O ANG PCTRS Status: Chronic (10) DM type 2 (diabetes mellitus, type 2) Status: Chronic Qualifiers: Diabetes mellitus fdc insulin use: without regional intermodal truck driver use Diabetes mellitus complication status: with unspecified complications (11) Dyslipidemia Code(s): E78.5 - HYPERLIPIDEMIA, UNSPECIFIED Status: Chronic (12) H/O prostate cancer Code(s): Z85.46 - PERSONAL HISTORY OF MALIGNANT NEOPLASM OF PROSTATE Status: Chronic (13) HTN (hypertension) Code(s): I10 - ESSENTIAL (PRIMARY) HYPERTENSION Status: Chronic Qualifiers: Hypertension type: essential hypertension Qualified Code(s): I10 - Essential (primary) hypertension (14) Horseshoe kidney Code(s): Q63.1 - LOBULATED, FUSED AND HORSESHOE KIDNEY Status: Chronic (15) Ischemic cardiomyopathy Code(s): I25.5 - ISCHEMIC CARDIOMYOPATHY Status: Chronic (16) Parkinson disease Code(s): G20 - PARKINSON'S DISEASE Status: Chronic (17) Physical deconditioning Code(s): R53.81 - OTHER MALAISE Status: Chronic - Plan Patient has a complicated medical history. Has multiple chronic conditions. Recently admitted with obstructing ureterolithiasis with either hemorrhage or rupture based on subcapsular fluid collection. Had stent placed. Stabilized, but had decompensated CHF, UZMA. Seems to have recovered fairly well. Has been in rehab. Needs to have definitive stone removal. Was seen in Urology clinic and was directly admitted for concern for decompensated HF. Appears to have very mild CHF exac. Has acute on chronic anemia as well. Diuresing. Cards following. Discussed with Dr. Berkowitz. Will transfuse. Check anemia work-up prior to the transfusion.
--- NOTE | 2019-03-21 17:54 | CON ---
DATE OF CONSULTATION: 03/21/2019 PRIMARY DIRECTOR OF THERAPY SERVICES: Riley Shin MD REASON FOR CONSULTATION: Preoperative evaluation and heart failure. HISTORY OF PRESENT ILLNESS: Mr. Rowland is a pleasant 88-year-old white gentleman, who comes to the hospital for preparation for surgery on Sunday. He has a very complex history with a horseshoe kidney. He was in septic shock back in January and started having hematuria and had a right ureteral calculi, perinephric standing. He is in Eliquis for chronic atrial fibrillation, which was stopped. Has a nonischemic cardiomyopathy with EF at 30% to 35% with an AICD in place, had a normal heart catheterization in 2016, that only showed moderate disease. He was admitted as he was a little volume overloaded and Dr. Tejada is planning on doing removal of the stents on Sunday. He is mostly nonverbal, difficult to arouse, but this has been his baseline for the last few weeks. Family denies him having any chest pain, tightness, or pressure and his breathing is pretty much close to his baseline. PAST MEDICAL HISTORY: 1. CLL, on Imbruvica. 2. Hypertension. 3. Nephrolithiasis in the past. 4. Chronic systolic heart failure. 5. Chronic atrial fibrillation. 6. AICD in place. 7. LV dysfunction EF of 30% to 35%. 8. Horseshoe kidney. 9. Prostate cancer. 10. Type 2 diabetes. 11. Hyperlipidemia. 12. Parkinson disease. 13. Chronic UTIs. SURGICAL HISTORY: 1. Cholecystectomy. 2. Gallbladder stent with removal. 3. Pediatric heart surgery. 4. Eye surgery. 5. Tonsillectomy. SOCIAL HISTORY: No alcohol, tobacco, or drugs. FAMILY HISTORY: Noncontributory. REVIEW OF SYSTEMS: Unobtainable as the patient is confused. OUTPATIENT MEDICATIONS: Reviewed. ALLERGIES: WHEY, OTHERWISE NO KNOWN DRUG ALLERGIES. PHYSICAL EXAMINATION: VITAL SIGNS: Temperature 98.3, pulse 66, respiratory rate 20, saturating 97% on 2 L, and blood pressure 114/61. GENERAL: Sleepy, but easily arousable. HEENT: Normocephalic and atraumatic. NECK: Supple. LUNGS: Clear to auscultation. CARDIOVASCULAR: S1 and S2. No S3 or S4. There is a grade 3/6 systolic murmur at the right upper sternal border. ABDOMEN: Soft. EXTREMITIES: 1+ edema. SKIN: Warm and dry. LABORATORY DATA: Laboratory work was reviewed. White count of 6.4, hemoglobin is 7.5 with baseline of about 10. Coags were reviewed. Chemistries were reviewed. Creatinine is 1.48 from baseline of about 1.5. He was as high as 6.25 on a recent admission with subscapular hematoma. BNP was 807, which is as high as it has been, but not terribly high. Albumin of 2.2. UA was unremarkable. Chest x-ray showed atherosclerosis, cardiomegaly with left-sided pleural effusion and parenchymal changes with mild congestive heart failure, mass in the right hemithorax is unchanged. ASSESSMENT: 1. Acute on chronic systolic heart failure. 2. Presence of an AICD. 3. Nonischemic dilated cardiomyopathy. 4. Moderate coronary artery disease. PLAN: 1. Certainly, he is high risk for any type of interventions, but certainly he is not prohibitive risk. I would recommend that he be diuresed adequately over the weekend. I would also recommend that his hemoglobin be maximized to have it at least close to or above 10 at the time of the surgery, so we would recommend two more units of blood to be given at least. Definitely try to give the blood slow with Lasix in between. 2. We will increase his Lasix dose to 40 mg twice a day IV. 3. I spoke with the family at length, mostly the who was in the room about the risk of him having surgery. His risk is mostly of having heart failure issues later and having a difficult time coming off the ventilator. She understands, verbalized understanding of this. She still would like to proceed if this is going to help. 4. Thank you for letting us to participate in the care of your patient. We will follow. Job ID: [id number]
[2019-03-21 18:25] LABS: Folate (Folic Acid) 17.1 ng/mL (7.0-31.4)
[2019-03-21 18:40] VITALS: BMI 33.3
[2019-03-21] MEDS: Melatonin 3 MG TAB PO SCH (21:01)
[2019-03-21] MEDS: Atorvastatin Calcium 20 MG TAB PO SCH (21:01)
[2019-03-21 22:31] LABS: #Eosinphils 0.2 thou/uL (0.0-0.7); #Lymphocytes 1.4 thou/uL (1.20-3.40); #Monocytes 0.8 thou/uL (0.11-0.59); #Neutrophils 4.9 thou/uL (1.40-6.50); %Basophils 0.3 % (0.0-1.0); %Eosinophils 2.6 % (0.0-10.0); %Lymphocytes 19.5 % (21.0-51.0); %Neutrophils 66.6 % (42.0-75.0); Hemoglobin 7.6 g/dL (14.0-18.0); Mean Corpuscular HGB CONC 32.7 g/dL (32.0-36.0); Mean Corpuscular Volume 94.6 fL (78.0-98.0); Mean Platelet Volume 5.8 fL (7.4-10.4); Platelet Count 369 thou/uL (130-400); RBC Distribution Width 14.8 % (11.5-14.5); Red Blood Cell (RBC) Count 2.45 mill/uL (4.70-6.10); White Blood Cell (WBC) Count 7.3 thou/uL (4.8-10.8)
[2019-03-22] MEDS: Meropenem 2 GM in Sodium Chloride 0.9% 100 ML IVPB SCH ×4 (00:57→21:32)
[2019-03-22 04:19] LABS: Hemoglobin 7.8 g/dL (14.0-18.0); Mean Corpuscular HGB CONC 32.6 g/dL (32.0-36.0); Mean Corpuscular Hemoglobin 30.7 pg (27.0-31.0); Mean Corpuscular Volume 94.3 fL (78.0-98.0); Mean Platelet Volume 5.8 fL (7.4-10.4); Platelet Count 358 thou/uL (130-400); RBC Distribution Width 14.9 % (11.5-14.5); Red Blood Cell (RBC) Count 2.53 mill/uL (4.70-6.10); White Blood Cell (WBC) Count 6.6 thou/uL (4.8-10.8)
[2019-03-22 04:25] LABS: INR-International Normal Ratio 1.2; Prothrombin Time 15.6 SEC (12.0-14.7)
[2019-03-22 04:38] LABS: Anion Gap 9 mmol/L (10-20); BUN (Urea Nitrogen) 24 mg/dL (8.4-25.7); Calc. Creatinine Clearance 59 mL/min (70-130); Calcium 8.4 mg/dL (7.8-10.44); Carbon Dioxide 29 mmol/L (23-31); Chloride 107 mmol/L (98-107); Estimated GFR-MDRD 50; Glucose 95 mg/dL (83-110); Potassium 4.2 mmol/L (3.5-5.1); Sodium 141 mmol/L (136-145)
[2019-03-22 06:36] LABS: Hemoglobin 8.4 g/dL (14.0-18.0)
[2019-03-22] MEDS: Furosemide 40 MG/4 ML VIAL SLOW IVP SCH ×2 (06:36→15:31)
[2019-03-22] MEDS ORDERED: Iron Sucrose Complex 200 MG in Sodium Chloride 0.9% 250 ML 250 ML IVPB SCH (09:15)
--- NOTE | 2019-03-22 09:17 | PDOC.HOSPP ---
- Subjective Encounter Date: 03/22/19 Encounter Time: 09:15 Subjective: f/u for mild CHF exacerbation with known NICM with EF 35% on current IV Lasix. s /p 1u PRBC's in context of acute/chronic anemia due to CKD/Iron deficiency. Current plans for ureteral stent/stone removal on 03/24/19. - Objective Vital Signs & Weight: Vital Signs (12 hours) Temp Pulse Resp BP Pulse Ox 03/22/19 07:09 98.1 F 74 17 116/73 94 L 03/22/19 03:39 98.2 F 65 20 117/62 03/22/19 00:00 97.8 F 78 20 121/63 93 L Weight Weight 232 lb 8 oz I&O: 03/21/19 03/22/19 03/23/19 06:59 06:59 06:59 Intake Total 440 1084 350 Output Total 125 Balance 315 1084 350 Result Diagrams: 03/22/19 06:16 03/22/19 04:12 Additional Labs: Microbiology 02/14/19 15:50 Stool C. difficile GDH Antigen & Toxins - Final 03/20/19 22:05 Urine Straight Catheter Urine Culture - Preliminary NO GROWTH AT 12 HOURS Laboratory Tests 02/07/19 02/08/19 02/09/19 03:50 03:30 04:50 Hgb 7.3 L 9.2 L 8.6 L Potassium Creatinine Iron TIBC % Saturation Transferrin Ferritin B-Natriuretic Peptide Vitamin B12 Folate 02/10/19 02/13/19 02/13/19 04:45 05:50 05:50 Hgb 8.7 L 8.6 L Potassium 3.5 Creatinine 2.14 H Iron TIBC % Saturation Transferrin Ferritin B-Natriuretic Peptide Vitamin B12 Folate 02/14/19 03/20/19 03/21/19 06:36 17:12 04:47 Hgb Potassium 3.3 L Creatinine 1.97 H 1.48 H Iron TIBC % Saturation Transferrin Ferritin B-Natriuretic Peptide 807.2 H Vitamin B12 Folate 03/21/19 03/21/19 03/21/19 04:47 17:15 17:15 Hgb 7.5 L Potassium Creatinine Iron 14 L TIBC 126 L % Saturation 11 L Transferrin 101 L Ferritin 1618.50 H B-Natriuretic Peptide Vitamin B12 646 Folate 17.10 03/21/19 03/22/19 22:25 04:12 Hgb 7.6 L 7.8 L Potassium Creatinine Iron TIBC % Saturation Transferrin Ferritin B-Natriuretic Peptide Vitamin B12 Folate EKG Reviewed by me: Yes (Tele - SR) Hospitalist ROS - Medication Medications: Active Medications Generic Name Dose Route Start Last Admin Trade Name Jasonq PRN Reason Stop Dose Admin Allopurinol 100 mg 03/21/19 09:00 03/21/19 09:19 Zyloprim PO 100 mg DAILY [facility]INO Administration Atorvastatin Calcium 20 mg 03/20/19 21:00 03/21/19 21:01 Lipitor PO 20 mg HS B[facility]INO Administration Carbidopa/Levodopa 1 tab 03/20/19 21:00 03/21/19 21:01 Sinemet 25-100 PO 1 tab TID [facility]INO Administration Carvedilol 6.25 mg 03/21/19 09:00 03/21/19 09:19 Coreg PO 6.25 mg DAILY [facility]INO Administration Cholecalciferol 1,000 units 03/21/19 09:00 03/21/19 09:19 Vitamin D3 PO 1,000 units DAILY [facility]INO Administration Donepezil HCl 5 mg 03/21/19 09:00 03/21/19 09:19 Aricept PO 5 mg DAILY [facility] Administration Dutasteride 0.5 mg 03/21/19 09:00 03/21/19 09:18 Avodart PO 0.5 mg DAILY [facility]INO Administration Finasteride 5 mg 03/21/19 09:00 03/21/19 09:19 Proscar PO 5 mg DAILY [facility] Administration Folic Acid 1 mg 03/21/19 09:00 03/21/19 09:19 Folvite PO 1 mg DAILY [facility] Administration Furosemide 40 mg 03/22/19 06:00 03/22/19 06:36 Lasix SLOW IVP 40 mg 0600,1400 [facility] Administration Gabapentin 100 mg 03/20/19 21:00 03/21/19 21:01 Neurontin PO 100 mg TID [facility]INO Administration Meropenem 2 gm/ Sodium 100 mls @ 100 mls/hr 03/21/19 20:00 03/22/19 06:36 Chloride IVPB 100 mls 0400,1200,2000 [facility]INO Administration Melatonin 6 mg 03/20/19 21:00 03/21/19 21:01 Melatonin PO 6 mg HS B[facility]INO Administration Polyethylene Glycol 17 gm 03/21/19 09:00 03/21/19 09:21 Miralax PO Not Given DAILY BERNARDINO Saccharomyces Boulardii 250 mg 03/21/19 09:00 03/21/19 09:18 Florastor PO 250 mg DAILY [facility] Administration Tamsulosin HCl 0.4 mg 03/20/19 21:00 03/21/19 21:01 Flomax PO 0.4 mg BID B[facility]INO Administration - Exam General Appearance: NAD, awake alert Eye: PERRL, anicteric sclera ENT: normocephalic atraumatic, no oropharyngeal lesions Neck: supple, symmetric, no JVD, no thyromegaly Heart: RRR, no gallops, no rubs, normal peripheral pulses, III/IV Respiratory: CTAB, no wheezes, no rales, no ronchi Gastrointestinal: soft, non-tender, non-distended, normal bowel sounds, no palpable masses Extremities: no cyanosis, no clubbing, no edema Skin: normal turgor Neurological: cranial nerve grossly intact, normal sensation to touch Musculoskeletal: generalized weakness Psychiatric: oriented to person Hosp A/P (1) Acute on chronic systolic (congestive) heart failure Code(s): I50.23 - ACUTE ON CHRONIC SYSTOLIC (CONGESTIVE) HEART FAILURE Status : Acute Plan: EF 30-35% with NICM, continue Lasix 40mg IV BID, serial I/O's, daily weight, overall weight down 233 to 228. (2) Anemia in CKD (chronic kidney disease) Code(s): N18.9 - CHRONIC KIDNEY DISEASE, UNSPECIFIED; D63.1 - ANEMIA IN CHRONIC KIDNEY DISEASE Status: Acute Plan: Suspect multifactorial anemia including CKD/Iron deficiency, s/p 1u PRBC's, serial H/H monitoring (3) Ureterolithiasis Code(s): N20.1 - CALCULUS OF URETER Status: Chronic Plan: Plan for second look with potential stone extraction, no new or worsening hydroureter on CT imaging, continue Meropenem (4) Nephrolithiasis Status: Chronic (5) CKD (chronic kidney disease) stage 3, GFR 30-59 ml/min Code(s): N18.3 - CHRONIC KIDNEY DISEASE, STAGE 3 (MODERATE) Status: Chronic Plan: Stable currently, continue to avoid nephrotoxic meds and limit contrast exposure (6) CLL (chronic lymphocytic leukemia) Code(s): C91.90 - LYMPHOID LEUKEMIA, UNSPECIFIED NOT HAVING ACHIEVED REMISSION Status: Chronic (7) DM type 2 (diabetes mellitus, type 2) Status: Chronic Qualifiers: Diabetes mellitus 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 insulin use: without half-way use Diabetes mellitus complication status: with unspecified complications (8) Ischemic cardiomyopathy Code(s): I25.5 - ISCHEMIC CARDIOMYOPATHY Status: Chronic Plan: EF 30-35%, continue to monitor fluid status (9) Parkinson disease Code(s): G20 - PARKINSON'S DISEASE Status: Chronic (10) Physical deconditioning Code(s): R53.81 - OTHER MALAISE Status: Chronic Plan: PT/OT for mobilization - Plan continue antibiotics, PT/OT, social secretary, out of bed/ambulate Stable currently PT/OT for mobilization Continue Meropenem IV IV Iron infusion today Continue Proscar/Avodart AM Lab: BMP, CBC Plan for ureteroscopy and ? stone extraction 03/24/19
[2019-03-22] MEDS ORDERED: Iron, Sodium Ferric Gluconate 250 MG in Sodium Chloride 0.9% 100 ML IVPB SCH (10:00)
[2019-03-22] MEDS: Allopurinol 100 MG TAB PO SCH (10:28)
[2019-03-22] MEDS: Carvedilol 6.25 MG TAB PO SCH (10:28)
[2019-03-22] MEDS: Donepezil HCl 5 MG TAB PO SCH (10:30)
[2019-03-22] MEDS: Carbidopa/Levodopa 25-100 mg Tablet PO SCH ×3 (10:30→20:14)
[2019-03-22] MEDS: Gabapentin 100 MG CAP PO SCH ×3 (10:31→20:14)
[2019-03-22] MEDS: Finasteride 5 MG TAB PO SCH (10:31)
[2019-03-22] MEDS: Tamsulosin HCl 0.4 MG CAP PO SCH ×2 (10:31→20:13)
[2019-03-22] MEDS: Dutasteride 0.5 MG CAP PO SCH (10:31)
[2019-03-22] MEDS: Saccharomyces boulardii 250 MG CAP PO SCH (10:31)
[2019-03-22] MEDS: Folic Acid 1 MG TAB PO SCH (10:31)
[2019-03-22] MEDS: Polyethylene Glycol 3350 17 GM Packet PO SCH (10:32)
--- NOTE | 2019-03-22 12:47 | PRG ---
DATE OF SERVICE: 03/22/2019 SUBJECTIVE: The patient states he is feeling fine. He has no bladder spasms or pain. He is potentially planning a ureteroscopy next week by Dr. Tejada for removal of remaining stones. OBJECTIVE: VITAL SIGNS: Temperature 98.1, pulse 74, respirations 17, blood pressure 109/66, and saturation 94% on 2 L nasal cannula. GENERAL: In no apparent distress. Communicating and alert. ABDOMEN: Soft, nontender, and nondistended. Positive bowel sounds. EXTREMITIES: No clubbing or cyanosis. 1+ edema. LABORATORY EVALUATION: Four sets of labs are in the [facility] system, which I have reviewed. Of note, the patient's hemoglobin is 7.8 with a white count of 6.6. Creatinine is 1.35. 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 He has already undergone one ureteroscopy and is currently being planned for a possible second ureteroscopy pending his general health. At the current time, the patient appears to be stable. No further recommendations or considerations at this time or change in management plan based on his kidney stones. I will continue to follow along and Dr. Tejada will see him on Sunday to resume care. Job ID: [id number]
[2019-03-22] MEDS ORDERED: HumaLOG 300 UNITS/3 ML VIAL SC PRN ×2 (18:38)
[2019-03-22] MEDS ORDERED: Dextrose 50% Abboject 50 ML SYRINGE SLOW IVP PRN (18:38)
[2019-03-22] MEDS ORDERED: Dextrose 5% in Water 1,000 ML IV PRN (18:38)
[2019-03-22] MEDS: Melatonin 3 MG TAB PO SCH (20:13)
[2019-03-22] MEDS: Atorvastatin Calcium 20 MG TAB PO SCH (20:14)
[2019-03-23] MEDS: Meropenem 2 GM in Sodium Chloride 0.9% 100 ML IVPB SCH ×3 (04:53→20:47)
[2019-03-23 06:34] LABS: INR-International Normal Ratio 1.2; Prothrombin Time 15.3 SEC (12.0-14.7)
[2019-03-23 06:36] LABS: Hemoglobin 8.8 g/dL (14.0-18.0); Mean Corpuscular HGB CONC 32.8 g/dL (32.0-36.0); Mean Corpuscular Hemoglobin 30.2 pg (27.0-31.0); Mean Corpuscular Volume 92.2 fL (78.0-98.0); Mean Platelet Volume 5.9 fL (7.4-10.4); Platelet Count 381 thou/uL (130-400); RBC Distribution Width 15.2 % (11.5-14.5); White Blood Cell (WBC) Count 7.8 thou/uL (4.8-10.8)
[2019-03-23 06:43] LABS: Anion Gap 11 mmol/L (10-20); BUN (Urea Nitrogen) 22 mg/dL (8.4-25.7); Calc. Creatinine Clearance 58 mL/min (70-130); Calcium 8.5 mg/dL (7.8-10.44); Carbon Dioxide 30 mmol/L (23-31); Chloride 103 mmol/L (98-107); Estimated GFR-MDRD 50; Glucose 96 mg/dL (83-110); Potassium 3.8 mmol/L (3.5-5.1); Sodium 140 mmol/L (136-145)
[2019-03-23] MEDS: Furosemide 40 MG/4 ML VIAL SLOW IVP SCH ×2 (06:47→14:30)
[2019-03-23] MEDS: Allopurinol 100 MG TAB PO SCH (09:33)
[2019-03-23] MEDS: Donepezil HCl 5 MG TAB PO SCH (09:34)
[2019-03-23] MEDS: Dutasteride 0.5 MG CAP PO SCH (09:34)
[2019-03-23] MEDS: Finasteride 5 MG TAB PO SCH (09:34)
[2019-03-23] MEDS: Carbidopa/Levodopa 25-100 mg Tablet PO SCH ×3 (09:34→20:47)
[2019-03-23] MEDS: Carvedilol 6.25 MG TAB PO SCH (09:34)
[2019-03-23] MEDS: Saccharomyces boulardii 250 MG CAP PO SCH (09:34)
[2019-03-23] MEDS: Tamsulosin HCl 0.4 MG CAP PO SCH ×2 (09:34→20:47)
[2019-03-23] MEDS: Gabapentin 100 MG CAP PO SCH ×3 (09:35→20:47)
[2019-03-23] MEDS: Folic Acid 1 MG TAB PO SCH (09:35)
[2019-03-23] MEDS: Polyethylene Glycol 3350 17 GM Packet PO SCH (09:36)
--- NOTE | 2019-03-23 12:30 | PRG ---
DATE OF SERVICE: 03/23/2019 SUBJECTIVE: The patient states he is feeling fine. Has no complaints. OBJECTIVE: VITAL SIGNS: Stable. GENERAL: No apparent distress, communicative and alert. CARDIOVASCULAR: Regular rate and rhythm. ABDOMEN: Soft, protuberant belly, nondistended, nontender. Positive bowel sounds. EXTREMITIES: Bilateral edema, worse on the left. GENITOURINARY: Penis nonfocal. No significant abnormalities. ASSESSMENT AND PLAN: An 88-year-old white male with numerous comorbidities, including heart failure with horseshoe kidneys and persistent impacted left ureteral stone. The patient is planned to undergo a right-sided ureteroscopy. He still has an impacted right ureteral stone. He has undergone a right ureteroscopy in the past. He is scheduled for another right ureteroscopy tomorrow. I have answered any of the patient's questions. He states he is familiar with the procedure and is fine going forward. He will need to be n.p.o. after midnight. Dr. Tejada will resume care of this patient in the morning after surgery. Job ID: [id number]
--- NOTE | 2019-03-23 12:38 | PDOC.HOSPP ---
- Subjective Encounter Date: 03/23/19 Encounter Time: 12:35 Subjective: f/u for acute/chronic systolic CHF on IV Lasix with weight down 8lbs since admit. Respiratory status improved and no new complaints. - Objective Vital Signs & Weight: Vital Signs (12 hours) Temp Pulse Resp BP BP Pulse Ox 03/23/19 11:43 98.1 F 75 18 111/62 94 L 03/23/19 09:34 114/61 03/23/19 08:55 92 L 03/23/19 07:42 98.4 F 82 18 114/61 92 L 03/23/19 04:00 97.9 F 92 20 98/60 93 L Weight Weight 225 lb 6.4 oz I&O: 03/22/19 03/23/19 03/24/19 06:59 06:59 06:59 Intake Total 1084 1610 120 Balance 1084 1610 120 Result Diagrams: 03/23/19 06:06 03/23/19 06:06 Additional Labs: Accuchecks 03/23/19 03/23/19 03/22/19 10:45 06:26 20:27 POC Glucose 119 H 126 H 120 H Microbiology 02/14/19 15:50 Stool C. difficile GDH Antigen & Toxins - Final 03/20/19 22:05 Urine Straight Catheter Urine Culture - Preliminary NO GROWTH AT 12 HOURS Laboratory Tests 02/07/19 02/08/19 02/09/19 03:50 03:30 04:50 Hgb 7.3 L 9.2 L 8.6 L Potassium Creatinine Iron TIBC % Saturation Transferrin Ferritin B-Natriuretic Peptide Vitamin B12 Folate 02/10/19 02/13/19 02/13/19 04:45 05:50 05:50 Hgb 8.7 L 8.6 L Potassium 3.5 Creatinine 2.14 H Iron TIBC % Saturation Transferrin Ferritin B-Natriuretic Peptide Vitamin B12 Folate 02/14/19 03/20/19 03/21/19 06:36 17:12 04:47 Hgb Potassium 3.3 L Creatinine 1.97 H 1.48 H Iron TIBC % Saturation Transferrin Ferritin B-Natriuretic Peptide 807.2 H Vitamin B12 Folate 03/21/19 03/21/19 03/21/19 04:47 17:15 17:15 Hgb 7.5 L Potassium Creatinine Iron 14 L TIBC 126 L % Saturation 11 L Transferrin 101 L Ferritin 1618.50 H B-Natriuretic Peptide Vitamin B12 646 Folate 17.10 03/21/19 03/22/19 22:25 04:12 Hgb 7.6 L 7.8 L Potassium Creatinine Iron TIBC % Saturation Transferrin Ferritin B-Natriuretic Peptide Vitamin B12 Folate EKG Reviewed by me: Yes (Tele - SR) Hospitalist ROS - Medication Medications: Active Medications Generic Name Dose Route Start Last Admin Trade Name Vikki PRN Reason Stop Dose Admin Allopurinol 100 mg 03/21/19 09:00 03/23/19 09:33 Zyloprim PO 100 mg DAILY [facility]INO Administration Atorvastatin Calcium 20 mg 03/20/19 21:00 03/22/19 20:14 Lipitor PO 20 mg HS B[facility]ARDINO Administration Carbidopa/Levodopa 1 tab 03/20/19 21:00 03/23/19 09:34 Sinemet 25-100 PO 1 tab TID BERNARDINO Administration Carvedilol 6.25 mg 03/21/19 09:00 03/23/19 09:34 Coreg PO 6.25 mg DAILY BERN[facility]INO Administration Cholecalciferol 1,000 units 03/21/19 09:00 03/23/19 09:33 Vitamin D3 PO 1,000 units DAILY BERN[facility]INO Administration Donepezil HCl 5 mg 03/21/19 09:00 03/23/19 09:34 Aricept PO 5 mg DAILY B[facility]INO Administration Dutasteride 0.5 mg 03/21/19 09:00 03/23/19 09:34 Avodart PO 0.5 mg DAILY B[facility]INO Administration Finasteride 5 mg 03/21/19 09:00 03/23/19 09:34 Proscar PO 5 mg DAILY BERN[facility]INO Administration Folic Acid 1 mg 03/21/19 09:00 03/23/19 09:35 Folvite PO 1 mg DAILY B[facility]INO Administration Furosemide 40 mg 03/22/19 06:00 03/23/19 06:47 Lasix SLOW IVP 40 mg 0600,1400 B[facility]INO Administration Gabapentin 100 mg 03/20/19 21:00 03/23/19 09:35 Neurontin PO 100 mg TID B[facility]INO Administration Meropenem 2 gm/ Sodium 100 mls @ 100 mls/hr 03/21/19 20:00 03/23/19 04:53 Chloride IVPB 100 mls 0400,1200,2000 [facility]INO Administration Melatonin 6 mg 03/20/19 21:00 03/22/19 20:13 Melatonin PO 6 mg HS BERN[facility]INO Administration Polyethylene Glycol 17 gm 03/21/19 09:00 03/23/19 09:36 Miralax PO Not Given DAILY BERNARDINO Saccharomyces Bocammiedii 250 mg 03/21/19 09:00 03/23/19 09:34 Florastor PO 250 mg DAILY B[facility]INO Administration Tamsulosin HCl 0.4 mg 03/20/19 21:00 03/23/19 09:34 Flomax PO 0.4 mg BID BERNARDINO Administration - Exam General Appearance: NAD, awake alert Eye: PERRL, anicteric sclera ENT: normocephalic atraumatic, no oropharyngeal lesions Neck: supple, symmetric, no JVD, no thyromegaly Heart: RRR, no gallops, no rubs, normal peripheral pulses Respiratory: CTAB, no wheezes, no rales, no ronchi Respiratory - other findings: diminished in bases Gastrointestinal: soft, non-tender, non-distended, normal bowel sounds, no palpable masses Extremities: 1+ LE edema Extremities - other findings: edema on dorsum of feet Skin: normal turgor, no lesions Neurological: cranial nerve grossly intact, no new deficit Musculoskeletal: generalized weakness Psychiatric: oriented to person, oriented to place Hosp A/P (1) Acute on chronic systolic (congestive) heart failure Code(s): I50.23 - ACUTE ON CHRONIC SYSTOLIC (CONGESTIVE) HEART FAILURE Status : Acute Plan: Continue diuresis with IV Lasix, monitor daily weights and I/O's, weight down 8lbs since admit (2) Anemia in CKD (chronic kidney disease) Code(s): N18.9 - CHRONIC KIDNEY DISEASE, UNSPECIFIED; D63.1 - ANEMIA IN CHRONIC KIDNEY DISEASE Status: Acute Plan: Stable currently, s/p IV Iron infusion, serial H/H (3) Ureterolithiasis Code(s): N20.1 - CALCULUS OF URETER Status: Chronic Plan: Plan for ureteroscopy and stone extraction 03/24/19 (4) Nephrolithiasis Status: Chronic (5) CKD (chronic kidney disease) stage 3, GFR 30-59 ml/min Code(s): N18.3 - CHRONIC KIDNEY DISEASE, STAGE 3 (MODERATE) Status: Chronic (6) CLL (chronic lymphocytic leukemia) Code(s): C91.90 - LYMPHOID LEUKEMIA, UNSPECIFIED NOT HAVING ACHIEVED REMISSION Status: Chronic (7) DM type 2 (diabetes mellitus, type 2) Status: Chronic Qualifiers: Diabetes mellitus mcc insulin use: without 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 termite use Diabetes mellitus complication status: with unspecified complications (8) Ischemic cardiomyopathy Code(s): I25.5 - ISCHEMIC CARDIOMYOPATHY Status: Chronic Plan: EF 30-35%, IV Lasix (9) Parkinson disease Code(s): G20 - PARKINSON'S DISEASE Status: Chronic (10) Physical deconditioning Code(s): R53.81 - OTHER MALAISE Status: Chronic Plan: PT/OT for mobilization - Plan plan discussed w/ family, continue antibiotics, PT/OT, social service agency director, DVT proph w/SCDs Stable currently PT/OT for mobilization Continue Meropenem IV s/p IV Iron infusion Continue Proscar/Avodart Resume Sertraline 100mg daily AM Lab: BMP, CBC Plan for ureteroscopy and stone extraction 03/24/19
--- NOTE | 2019-03-23 14:13 | PDOC.CPN ---
- Subjective Date: 03/23/19 Time: 14:11 Interval history: No new issues. No chest pain, Breathing at baseline. - Review of Systems General: denies: fever/chills, weight/appetite/sleep changes, night sweats, fatigue Respiratory: reports: cough, congestion, shortness of breath, exercise intolerance Cardiovascular: denies: chest pain, palpitation, edema, paroxysmal nocturnal dyspnea, orthopnea Gastrointestinal: denies: nausea, vomiting, diarrhea, constipation, abd pain, GI bleeding Musculoskeletal: denies: pain, tenderness, stiffness, swelling, arthritis/ arthralgias Neurological: denies: numbness, syncope, seizure, weakness - Objective Allergies/Adverse Reactions: Allergies Allergy/AdvReac Type Severity Reaction Status Date / Time whey Allergy Mild Verified 03/20/19 15:34 No Known Drug Allergies Allergy Verified 03/20/19 15:14 Visit Medications: Current Medications Acetaminophen (Tylenol) 650 mg PO Q4H PRN PRN Reason: Headache/Fever/Mild Pain (1-3) Acetaminophen (Tylenol) 650 mg SC Q4H PRN PRN Reason: Headache/Fever/Mild Pain (1-3) Allopurinol (Zyloprim) 100 mg PO DAILY [facility] Last Admin: 03/23/19 09:33 Dose: 100 mg Atorvastatin Calcium (Lipitor) 20 mg PO HS [facility] Last Admin: 03/22/19 20:14 Dose: 20 mg Carbidopa/Levodopa (Sinemet 25-100) 1 tab PO TID [facility] Last Admin: 03/23/19 09:34 Dose: 1 tab Carvedilol (Coreg) 6.25 mg PO DAILY [facility] Last Admin: 03/23/19 09:34 Dose: 6.25 mg Cholecalciferol (Vitamin D3) 1,000 units PO DAILY [facility] Last Admin: 03/23/19 09:33 Dose: 1,000 units Dextrose/Water (Dextrose 50%) 25 gm SLOW IVP PRN PRN PRN Reason: Hypoglycemia Donepezil HCl (Aricept) 5 mg PO DAILY [facility] Last Admin: 03/23/19 09:34 Dose: 5 mg Dutasteride (Avodart) 0.5 mg PO DAILY [facility] Last Admin: 03/23/19 09:34 Dose: 0.5 mg Finasteride (Proscar) 5 mg PO DAILY [facility] Last Admin: 03/23/19 09:34 Dose: 5 mg Folic Acid (Folvite) 1 mg PO DAILY [facility] Last Admin: 03/23/19 09:35 Dose: 1 mg Furosemide (Lasix) 40 mg SLOW IVP 0600,1400 [facility] Last Admin: 03/23/19 06:47 Dose: 40 mg Gabapentin (Neurontin) 100 mg PO TID [facility] Last Admin: 03/23/19 09:35 Dose: 100 mg Glucagon (Glucagon) 1 mg IM PRN PRN PRN Reason: Hypoglycemia Meropenem 2 gm/ Sodium (Chloride) 100 mls @ 100 mls/hr IVPB 0400,1200,2000 [facility] Last Admin: 03/23/19 12:57 Dose: 100 mls Dextrose/Water (D5w) 1,000 mls @ 0 mls/hr IV .Q0M PRN PRN Reason: Hypoglycemia Insulin Human Lispro (Humalog) 0 units SC .MODERATE SLIDING SC PRN PRN Reason: Moderate Correctional Scale Insulin Human Lispro (Humalog) 0 units SC .BEDTIME SLIDING SC PRN PRN Reason: Bedtime Correctional Scale Melatonin (Melatonin) 6 mg PO [facility] Last Admin: 03/22/19 20:13 Dose: 6 mg Polyethylene Glycol (Miralax) 17 gm PO DAILY [facility] Last Admin: 03/23/19 09:36 Dose: Not Given Saccharomyces Boulardii (Florastor) 250 mg PO DAILY [facility] Last Admin: 03/23/19 09:34 Dose: 250 mg Sertraline HCl (Zoloft) 100 mg PO DAILY [facility] Sertraline HCl (Zoloft) 100 mg PO NOW [facility] Stop: 03/23/19 15:00 Last Admin: 03/23/19 13:15 Dose: 100 mg Sodium Chloride (Flush - Normal Saline) 10 ml IVF PRN PRN PRN Reason: Saline Flush Tamsulosin HCl (Flomax) 0.4 mg PO BID [facility] Last Admin: 03/23/19 09:34 Dose: 0.4 mg Vital Signs & Weight: Vital Signs Temp Pulse Resp BP BP Pulse Ox 03/23/19 11:43 98.1 F 75 18 111/62 94 L 03/23/19 09:34 114/61 03/23/19 08:55 92 L 03/23/19 07:42 98.4 F 82 18 114/61 92 L 09/29/19 04:00 97.9 F 92 20 98/60 93 L Weight 225 lb 6.4 oz - Physical Exam General: no apparent distress HEENT: mucus membranes moist Neck: supple neck, midline trachea Cardiac: regular rate and rhythm Lungs: normal breath sounds Neuro: no lateralizing findings Abdomen: active bowel sounds, soft, non-tender Skin: clear Musculoskeletal: normal range of motion - Labs Result Diagrams: 03/23/19 06:06 03/23/19 06:06 - Telemetry Sinus rhythms and dysrhythmias: sinus rhythm - Assessment/Plan Assessment/Plan: 1. Acute on chronic systolic heart failure, stable now. 2. Non ischemic CM EF at 30-35% 3. Moderate CAD. 4. Horseshoe kidney 5. Persistent impacted left ureteral stone. PLAN; - Urologic procedure scheduled for tomorrow. - OK to proceed from cardiac perspective, high risk patient given all co- morbidities. - Continue current meds.
[2019-03-23] MEDS: Melatonin 3 MG TAB PO SCH (20:47)
[2019-03-23] MEDS: Atorvastatin Calcium 20 MG TAB PO SCH (20:48)
[2019-03-24] MEDS: Meropenem 2 GM in Sodium Chloride 0.9% 100 ML IVPB SCH ×3 (04:02→20:28)
[2019-03-24 05:38] LABS: Hemoglobin 8.9 g/dL (14.0-18.0); Mean Corpuscular HGB CONC 31.6 g/dL (32.0-36.0); Mean Corpuscular Hemoglobin 29.7 pg (27.0-31.0); Platelet Count 401 thou/uL (130-400); RBC Distribution Width 14.9 % (11.5-14.5); Red Blood Cell (RBC) Count 2.99 mill/uL (4.70-6.10); White Blood Cell (WBC) Count 9.1 thou/uL (4.8-10.8)
[2019-03-24 05:45] LABS: INR-International Normal Ratio 1.2; Prothrombin Time 14.9 SEC (12.0-14.7)
[2019-03-24 06:04] LABS: Anion Gap 13 mmol/L (10-20); BUN (Urea Nitrogen) 24 mg/dL (8.4-25.7); Calc. Creatinine Clearance 54 mL/min (70-130); Calcium 8.6 mg/dL (7.8-10.44); Carbon Dioxide 31 mmol/L (23-31); Chloride 101 mmol/L (98-107); Estimated GFR-MDRD 48; Glucose 90 mg/dL (83-110); Potassium 3.6 mmol/L (3.5-5.1); Sodium 141 mmol/L (136-145)
[2019-03-24] MEDS: Furosemide 40 MG/4 ML VIAL SLOW IVP SCH ×2 (06:11→15:15)
--- NOTE | 2019-03-24 06:42 | PDOC.CPN ---
- Subjective Date: 03/24/19 Time: 19:09 Interval history: Doing well post op. Appreciative of what we are doing. Feels well. - Objective Allergies/Adverse Reactions: Allergies Allergy/AdvReac Type Severity Reaction Status Date / Time whey Allergy Mild Verified 03/20/19 15:34 No Known Drug Allergies Allergy Verified 03/20/19 15:14 Visit Medications: Current Medications Acetaminophen (Tylenol) 650 mg PO Q4H PRN PRN Reason: Headache/Fever/Mild Pain (1-3) Acetaminophen (Tylenol) 650 mg [place] Q4H PRN PRN Reason: Headache/Fever/Mild Pain (1-3) Allopurinol (Zyloprim) 100 mg PO DAILY [facility] Last Admin: 03/23/19 09:33 Dose: 100 mg Atorvastatin Calcium (Lipitor) 20 mg PO HS [facility] Last Admin: 03/23/19 20:48 Dose: 20 mg Carbidopa/Levodopa (Sinemet 25-100) 1 tab PO TID [facility] Last Admin: 03/23/19 20:47 Dose: 1 tab Carvedilol (Coreg) 6.25 mg PO DAILY [facility] Last Admin: 03/23/19 09:34 Dose: 6.25 mg Cholecalciferol (Vitamin D3) 1,000 units PO DAILY [facility] Last Admin: 03/23/19 09:33 Dose: 1,000 units Dextrose/Water (Dextrose 50%) 25 gm SLOW IVP PRN PRN PRN Reason: Hypoglycemia Donepezil HCl (Aricept) 5 mg PO DAILY [facility] Last Admin: 03/23/19 09:34 Dose: 5 mg Dutasteride (Avodart) 0.5 mg PO DAILY [facility] Last Admin: 03/23/19 09:34 Dose: 0.5 mg Finasteride (Proscar) 5 mg PO DAILY [facility] Last Admin: 03/23/19 09:34 Dose: 5 mg Folic Acid (Folvite) 1 mg PO DAILY [facility] Last Admin: 03/23/19 09:35 Dose: 1 mg Furosemide (Lasix) 40 mg SLOW IVP 0600,1400 [facility] Last Admin: 03/24/19 06:11 Dose: 40 mg Gabapentin (Neurontin) 100 mg PO TID [facility] Last Admin: 03/23/19 20:47 Dose: 100 mg Glucagon (Glucagon) 1 mg IM PRN PRN PRN Reason: Hypoglycemia Meropenem 2 gm/ Sodium (Chloride) 100 mls @ 100 mls/hr IVPB 0400,1200,2000 [facility] Last Admin: 03/24/19 04:02 Dose: 100 mls Dextrose/Water (D5w) 1,000 mls @ 0 mls/hr IV .Q0M PRN PRN Reason: Hypoglycemia Insulin Human Lispro (Humalog) 0 units SC .MODERATE SLIDING SC PRN PRN Reason: Moderate Correctional Scale Insulin Human Lispro (Humalog) 0 units SC .BEDTIME SLIDING SC PRN PRN Reason: Bedtime Correctional Scale Melatonin (Melatonin) 6 mg PO HS [facility] Last Admin: 03/23/19 20:47 Dose: 6 mg Polyethylene Glycol (Miralax) 17 gm PO DAILY [facility] Last Admin: 03/23/19 09:36 Dose: Not Given Saccharomyces Boulardii (Florastor) 250 mg PO DAILY [facility] Last Admin: 03/23/19 09:34 Dose: 250 mg Sertraline HCl (Zoloft) 100 mg PO DAILY [facility] Sodium Chloride (Flush - Normal Saline) 10 ml IVF PRN PRN PRN Reason: Saline Flush Tamsulosin HCl (Flomax) 0.4 mg PO BID [facility] Last Admin: 03/23/19 20:47 Dose: 0.4 mg Vital Signs & Weight: Vital Signs Temp Pulse Resp BP Pulse Ox 03/24/19 04:00 98.3 F 87 18 123/60 91 L 03/24/19 00:00 97.9 F 85 18 119/66 94 L 03/23/19 20:00 98.3 F 76 16 129/66 93 L Weight 221 lb 11.2 oz - Physical Exam General: no apparent distress HEENT: mucus membranes moist Cardiac: regular rate and rhythm Lungs: clear to auscultation Neuro: grossly intact Abdomen: active bowel sounds, no masses Musculoskeletal: no pain - Labs Result Diagrams: 03/24/19 12:43 03/25/19 05:45 - Assessment/Plan Assessment/Plan: Severe 3 vessel disease Acute on chronic CHF Anemia CKI s/p ICD Preop clearance Ptr appears euvolemic Pt felt to be at high risk for complications but the benefits of proceeding outweigh the risks; Has done well postop Pt with severe CAD not amenadble to intervention or CABG several years ago Recommend MICU overnight given tenuous situation
[2019-03-24] MEDS: Carvedilol 6.25 MG TAB PO SCH (07:42)
[2019-03-24] MEDS ORDERED: Fentanyl 100 MCG/2 ML VIAL ONE (08:59)
[2019-03-24] MEDS ORDERED: Meropenem 2 GM in Admixture Fee 1 EACH IVPB SCH (09:00)
[2019-03-24] MEDS ORDERED: SUGAMMADEX SODIUM 500 MG/5 ML VIAL ONE (09:06)
[2019-03-24] MEDS ORDERED: Hyoscyamine Sulfate SL 0.125 mg Tablet SL SCH (09:15)
[2019-03-24] MEDS ORDERED: Phenylephrine HCL 10 MG/ML VIAL ONE (09:19)
[2019-03-24] MEDS ORDERED: Promethazine HCl 25 MG/ML VIAL SLOW IVP PRN (10:09)
[2019-03-24] MEDS ORDERED: Ondansetron HCl/PF 4 MG/2 ML Vial IVP PRN (10:09)
[2019-03-24] MEDS ORDERED: Promethazine HCl 25 MG/ML VIAL IM PRN (10:09)
[2019-03-24] MEDS ORDERED: Iothalamate Meglumine 60% 50 ML VIAL FS ONE (12:34)
[2019-03-24 12:51] LABS: #Eosinphils 0.4 thou/uL (0.0-0.7); #Lymphocytes 2.1 thou/uL (1.20-3.40); #Monocytes 0.9 thou/uL (0.11-0.59); %Basophils 0.1 % (0.0-1.0); %Eosinophils 3.9 % (0.0-10.0); %Lymphocytes 18.2 % (21.0-51.0); %Monocytes 7.7 % (0.0-10.0); Hemoglobin 11.1 g/dL (14.0-18.0); Mean Corpuscular HGB CONC 32.3 g/dL (32.0-36.0); Mean Corpuscular Hemoglobin 29.6 pg (27.0-31.0); Mean Corpuscular Volume 91.7 fL (78.0-98.0); Mean Platelet Volume 5.7 fL (7.4-10.4); Platelet Count 413 thou/uL (130-400); RBC Distribution Width 15.1 % (11.5-14.5); Red Blood Cell (RBC) Count 3.75 mill/uL (4.70-6.10); White Blood Cell (WBC) Count 11.4 thou/uL (4.8-10.8)
[2019-03-24 13:15] LABS: Anion Gap 14 mmol/L (10-20); BUN (Urea Nitrogen) 23 mg/dL (8.4-25.7); Calc. Creatinine Clearance 49 mL/min (70-130); Calcium 8.7 mg/dL (7.8-10.44); Carbon Dioxide 30 mmol/L (23-31); Chloride 100 mmol/L (98-107); Estimated GFR-MDRD 43; Glucose 106 mg/dL (83-110); Potassium 4.2 mmol/L (3.5-5.1); Sodium 140 mmol/L (136-145)
--- NOTE | 2019-03-24 14:03 | OP ---
DATE OF PROCEDURE: 03/24/2019 PREOPERATIVE DIAGNOSIS: 1. An 88-year-old male with history of bilateral renal stone burden; horseshoe kidney 2. History of multiple right ureteral calculi. 3. History of impacted right mid ureteral calculi, history of urosepsis. POSTOPERATIVE DIAGNOSES: 1. An 88-year-old male with history of bilateral renal stone burden. 2. History of multiple right ureteral calculi. 3. History of impacted right mid ureteral calculi, history of urosepsis. PROCEDURES PERFORMED: Cystoscopy, right retrograde pyelogram, 6 x 22 double-J ureteral stent exchange, flexible ureteroscopy, laser lithotripsy of multiple ureteral calculi, basket extraction of stone fragments. ANESTHESIA: General. COMPLICATIONS: None apparent. DISPOSITION: To recovery room in guarded condition. SPECIMEN: Stone for chemical analysis. INTRAOPERATIVE FINDINGS: 1. Nonobstructing wide caliber bulbar stricture, not warranting treatment. 2. High median bar with mild bilobar hyperplasia, nonobstructing. 3. Right ureteral calculi baout 8-10mm imbedded in the ureteral mucosa, severe at S1-S2 :second nidus stone approximately 8 mm. 4. Multiple punctate pebble-like stone debris within the course of the right ureter. DESCRIPTION OF PROCEDURE: After an informed consent was signed, the patient was taken to the operating room, placed in a dorsal lithotomy position with the genital area prepped and draped in the usual surgical sterile fashion. He was provided preop Levsin sublingual as he has significant specificity of the bladder hindering visualization of the bladder mucosa due to urge incontinence. A 22- Libyan cystoscope was utilized for cystoscopy, which demonstrated bilobar hyperplasia with no significant outlet obstruction per se, high median bar was noted. Bladder was entered, which demonstrated tiny punctate stone debris within the bladder. The right ureteral stent was left in situ as the stent is quite short, a 6 x 22. A 0.35 Sensor wire was placed along the ureteral stent to the level of the right upper pole. The stent was then completely removed. We passed a dual-lumen access sheath and passed this up into the right upper pole as well. From a prior endeavor, we were unable to engage the stone as he has a horseshoe kidney and the ureter was deviated medial anterior. Therefore, we passed an 11/13 x 36 cm navigator to the level of the stone on CT scan. From this level, we can see that the ureter was deviated anteriorly, therefore I did not further pursue passing the navigator any higher than this. It does require the flexible ureteroscope to be negotiated anteriorly from this level to engage the rest of the ureter. Stones are unable to be visualized with rigid ureteroscope, due to anteriorly deviated mid ureter. We found the stone as previously noted, which was imbedded, impacted in the ureteral mucosa. I found the edge of the stone and we gently laser lithotripsy the stone rendering this free. The stone was quite large, much larger than what CT eludes. On CT, measured about 7 mm; it appears to be about 10 mm. The stone was rendered free from the mucosa gently and laser lithotripsies. We spend quite a bit of time carefully lasering the stone as it was severely impacted with mucosal overgrowth. We were able to subsequently render this free and laser lithotripsy and basket extracted all nidus from this fragment. At the end of the procedure, we can see that the ureteral mucosa had inflammatory changes consistent with impacted adherent ureteral calculi, which has been present for many months. After we rendered this free, we saw a multiple tiny pebble-like stone debris coming out of the ureter and we basket extracted these and got these out of the way. We were unable to pass a navigator passed this point at the level of S3 ureter due to deviated ureter. From this location, we were able to negotiate the flexible ureteroscope under direct visualization to see the larger stone debris at the level of L3-L4. This was free-floating, appeared to be about 8 mm. We laser lithotripsied this into multiple fragments and basket extracted all the fragment debris. I was able to then negotiate the flexible ureteroscope to the level of the renal pelvis. There was a calcific density adjacent to the wire. I looked at this area. This was not a stone at the level of the UPJ or the renal pelvis. As we were treating the ureteral stone fragments only, I did not perform a diagnostic pyeloscopy that was more involved as goal was to clear his ureteral stone burden due to significant comorbidities. The ureter was then surveyed, which demonstrated no further stone nidus warranting treatment or basket extraction. There was no evidence of ureteral mucosa perforation . A 6 x 22 double-J ureteral stent was replaced. An 18-Libyan Coude catheter was passed due to high median bar as a regular 18Fwas difficulty at the level of the bladder neck. Coude was able to be passed without significant issues and pink-tinged urine was obtained. The patient was transported to the recovery room in stable condition. All wires accounted and removed. Job ID: [id number] [facility]
--- NOTE | 2019-03-24 14:03 | RAD ---
TWO SUBMITTED FLUOROSCOPIC SPOT IMAGES FROM AN INTRAOPERATIVE EXAMINATION FOR RETROGRADE IVP: FINDINGS: Retrograde IVP demonstrates canalization of the right renal collecting system and wire localization o f the right renal collecting system. There is subsequent placement of a double-J ureteral stent. Bi lateral nipple device is again noted when compared to the prior dated 02/26/2019. IMPRESSION: Intraoperative fluoroscopy for a retrograde IVP. POS: OFF
[2019-03-24] MEDS ORDERED: Ondansetron PF 4 MG/2 ML Vial ONE (15:07)
[2019-03-24] MEDS ORDERED: PHENYLEPHRINE-NS 100 MCG/ML 10 ML SYRINGE ONE (15:07)
[2019-03-24] MEDS ORDERED: Rocuronium Bromide 10 MG/ML (10ML VIAL) ONE (15:07)
[2019-03-24] MEDS ORDERED: Vecuronium 10 MG VIAL ONE (15:07)
[2019-03-24] MEDS ORDERED: Glycopyrrolate 0.2 MG/ML 5 ML SYRINGE ONE (15:07)
[2019-03-24] MEDS ORDERED: ePHEDrine 50 MG/ML VIAL ONE (15:07)
[2019-03-24] MEDS ORDERED: Sodium Chloride 0.9% 10 ML ONE ×2 (15:10→18:32)
[2019-03-24] MEDS ORDERED: Furosemide 20 MG/2 ML VIAL ONE (15:10)
[2019-03-24] MEDS ORDERED: Gabapentin 100 MG CAP PO SCH (15:15)
[2019-03-24] MEDS ORDERED: Carvedilol 6.25 MG TAB PO SCH (15:15)
[2019-03-24] MEDS ORDERED: Dutasteride 0.5 MG CAP PO SCH (15:15)
[2019-03-24] MEDS ORDERED: Finasteride 5 MG TAB PO SCH (15:15)
[2019-03-24] MEDS ORDERED: Tamsulosin HCl 0.4 MG CAP PO SCH (15:15)
[2019-03-24] MEDS ORDERED: Folic Acid 1 MG TAB PO SCH (15:15)
[2019-03-24] MEDS ORDERED: Allopurinol 100 MG TAB PO SCH (15:15)
[2019-03-24] MEDS ORDERED: Donepezil HCl 5 MG TAB PO SCH (15:15)
--- NOTE | 2019-03-24 17:05 | PDOC.HOSPP ---
- Subjective Encounter Date: 03/24/19 Encounter Time: 17:00 Subjective: f/u s/p laser lithotripsy and ureteral stent with multiple stone extractions. Feels ok overall and stable in recovery per nursing. - Objective Vital Signs & Weight: Vital Signs (12 hours) Temp Pulse Resp BP BP Pulse Ox 03/24/19 07:45 92 L 03/24/19 07:42 125/69 03/24/19 07:40 98.0 F 89 18 125/69 92 L Weight Weight 221 lb 11.2 oz I&O: 03/23/19 03/24/19 03/25/19 06:59 06:59 06:59 Intake Total 1610 650 Balance 1610 650 Result Diagrams: 03/24/19 12:43 03/24/19 12:43 Additional Labs: Accuchecks 03/24/19 03/24/19 03/23/19 15:26 05:55 20:14 POC Glucose 103 98 150 H Microbiology 02/14/19 15:50 Stool C. difficile GDH Antigen & Toxins - Final 03/20/19 22:05 Urine Straight Catheter Urine Culture - Preliminary NO GROWTH AT 12 HOURS Laboratory Tests 02/07/19 02/08/19 02/09/19 03:50 03:30 04:50 Hgb 7.3 L 9.2 L 8.6 L Potassium Creatinine Iron TIBC % Saturation Transferrin Ferritin B-Natriuretic Peptide Vitamin B12 Folate 02/10/19 02/13/19 02/13/19 04:45 05:50 05:50 Hgb 8.7 L 8.6 L Potassium 3.5 Creatinine 2.14 H Iron TIBC % Saturation Transferrin Ferritin B-Natriuretic Peptide Vitamin B12 Folate 02/14/19 03/20/19 03/21/19 06:36 17:12 04:47 Hgb Potassium 3.3 L Creatinine 1.97 H 1.48 H Iron TIBC % Saturation Transferrin Ferritin B-Natriuretic Peptide 807.2 H Vitamin B12 Folate 03/21/19 03/21/19 03/21/19 04:47 17:15 17:15 Hgb 7.5 L Potassium Creatinine Iron 14 L TIBC 126 L % Saturation 11 L Transferrin 101 L Ferritin 1618.50 H B-Natriuretic Peptide Vitamin B12 646 Folate 17.10 03/21/19 03/22/19 22:25 04:12 Hgb 7.6 L 7.8 L Potassium Creatinine Iron TIBC % Saturation Transferrin Ferritin B-Natriuretic Peptide Vitamin B12 Folate EKG Reviewed by me: Yes (Tele - SR) Hospitalist ROS - Medication Medications: Active Medications Generic Name Dose Route Start Last Admin Trade Name Vikki PRN Reason Stop Dose Admin Allopurinol 100 mg 03/21/19 09:00 03/23/19 09:33 Zyloprim PO 100 mg DAILY BERNARDINO Administration Atorvastatin Calcium 20 mg 03/20/19 21:00 03/23/19 20:48 Lipitor PO 20 mg HS BERNARDINO Administration Carbidopa/Levodopa 1 tab 03/20/19 21:00 03/23/19 20:47 Sinemet 25-100 PO 1 tab TID BERNARDINO Administration Carvedilol 6.25 mg 03/21/19 09:00 03/24/19 07:42 Coreg PO 6.25 mg DAILY BERNARDINO Administration Cholecalciferol 1,000 units 03/21/19 09:00 03/23/19 09:33 Vitamin D3 PO 1,000 units DAILY BERNARDINO Administration Donepezil HCl 5 mg 03/21/19 09:00 03/23/19 09:34 Aricept PO 5 mg DAILY BERNARDINO Administration Dutasteride 0.5 mg 03/21/19 09:00 03/23/19 09:34 Avodart PO 0.5 mg DAILY BERNARDINO Administration Finasteride 5 mg 03/21/19 09:00 03/23/19 09:34 Proscar PO 5 mg DAILY BERNARDINO Administration Folic Acid 1 mg 03/21/19 09:00 03/23/19 09:35 Folvite PO 1 mg DAILY BERNARDINO Administration Furosemide 40 mg 03/22/19 06:00 03/24/19 06:11 Lasix SLOW IVP 40 mg 0600,1400 BERNARDINO Administration Gabapentin 100 mg 03/20/19 21:00 03/23/19 20:47 Neurontin PO 100 mg TID BERNARDINO Administration Meropenem 2 gm/ Sodium 100 mls @ 100 mls/hr 03/21/19 20:00 03/24/19 04:02 Chloride IVPB 100 mls 0400,1200,2000 BERNARDINO Administration Melatonin 6 mg 03/20/19 21:00 03/23/19 20:47 Melatonin PO 6 mg HS BERNARDINO Administration Polyethylene Glycol 17 gm 03/21/19 09:00 03/23/19 09:36 Miralax PO Not Given DAILY BERNARDINO Saccharomyces Boulardii 250 mg 03/21/19 09:00 03/23/19 09:34 Florastor PO 250 mg DAILY BERNARDINO Administration Tamsulosin HCl 0.4 mg 03/20/19 21:00 03/23/19 20:47 Flomax PO 0.4 mg BID BERNARDINO Administration - Exam General Appearance: NAD, awake alert Eye: PERRL, anicteric sclera ENT: normocephalic atraumatic, no oropharyngeal lesions Neck: supple, symmetric, no JVD, no thyromegaly Heart: RRR, no gallops, no rubs, normal peripheral pulses Respiratory: CTAB, no wheezes, no rales, no ronchi Gastrointestinal: soft, non-tender, non-distended, normal bowel sounds, no palpable masses Gastrointestinal - other findings: Benavides with gross hematuria Extremities: no cyanosis Extremities - other findings: + edema of feet Skin: normal turgor, no lesions Neurological: cranial nerve grossly intact, no new deficit Musculoskeletal: normal tone, generalized weakness Psychiatric: normal affect, oriented to person, oriented to place Hosp A/P (1) Acute on chronic systolic (congestive) heart failure Code(s): I50.23 - ACUTE ON CHRONIC SYSTOLIC (CONGESTIVE) HEART FAILURE Status : Acute Plan: Stable currently, continue routine Lasix dosing, no current volume overload (2) Anemia in CKD (chronic kidney disease) Code(s): N18.9 - CHRONIC KIDNEY DISEASE, UNSPECIFIED; D63.1 - ANEMIA IN CHRONIC KIDNEY DISEASE Status: Acute Plan: Stable, received 2u PRBC's today, serial H/H monitoring (3) Ureterolithiasis Code(s): N20.1 - CALCULUS OF URETER Status: Chronic Plan: s/p laser lithotripsy and extraction per Urology (4) Nephrolithiasis Status: Chronic (5) CKD (chronic kidney disease) stage 3, GFR 30-59 ml/min Code(s): N18.3 - CHRONIC KIDNEY DISEASE, STAGE 3 (MODERATE) Status: Chronic (6) CLL (chronic lymphocytic leukemia) Code(s): C91.90 - LYMPHOID LEUKEMIA, UNSPECIFIED NOT HAVING ACHIEVED REMISSION Status: Chronic (7) DM type 2 (diabetes mellitus, type 2) Status: Chronic Qualifiers: Diabetes mellitus senior care insulin use: without intermediate manager use Diabetes mellitus complication status: with unspecified complications (8) Ischemic cardiomyopathy Code(s): I25.5 - ISCHEMIC CARDIOMYOPATHY Status: Chronic Plan: Continue medical mgmt, Lasix 40mg IV BID (9) Parkinson disease Code(s): G20 - PARKINSON'S DISEASE Status: Chronic (10) Physical deconditioning Code(s): R53.81 - OTHER MALAISE Status: Chronic - Plan continue antibiotics, PT/OT, social 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
[2019-03-24] MEDS: Folic Acid 1 MG TAB PO SCH (17:15)
[2019-03-24] MEDS: Donepezil HCl 5 MG TAB PO SCH (17:15)
[2019-03-24] MEDS: Finasteride 5 MG TAB PO SCH (17:15)
[2019-03-24] MEDS: Allopurinol 100 MG TAB PO SCH (17:45)
[2019-03-24] MEDS: Carbidopa/Levodopa 25-100 mg Tablet PO SCH ×2 (19:50→20:30)
[2019-03-24] MEDS: Gabapentin 100 MG CAP PO SCH ×2 (19:51→20:29)
[2019-03-24] MEDS: Polyethylene Glycol 3350 17 GM Packet PO SCH (19:51)
[2019-03-24] MEDS: Saccharomyces boulardii 250 MG CAP PO SCH (19:51)
[2019-03-24] MEDS: Dutasteride 0.5 MG CAP PO SCH (19:51)
[2019-03-24] MEDS: Tamsulosin HCl 0.4 MG CAP PO SCH ×2 (19:52→20:30)
[2019-03-24] MEDS: Atorvastatin Calcium 20 MG TAB PO SCH (20:29)
[2019-03-24] MEDS: Melatonin 3 MG TAB PO SCH (20:30)
[2019-03-25] MEDS: Meropenem 2 GM in Sodium Chloride 0.9% 100 ML IVPB SCH ×3 (04:17→20:50)
[2019-03-25] MEDS: Furosemide 40 MG/4 ML VIAL SLOW IVP SCH (04:54)
[2019-03-25 06:11] LABS: Anion Gap 14 mmol/L (10-20); BUN (Urea Nitrogen) 28 mg/dL (8.4-25.7); Calc. Creatinine Clearance 49 mL/min (70-130); Calcium 8.1 mg/dL (7.8-10.44); Carbon Dioxide 28 mmol/L (23-31); Chloride 100 mmol/L (98-107); Estimated GFR-MDRD 44; Glucose 85 mg/dL (83-110); Potassium 4.5 mmol/L (3.5-5.1); Sodium 137 mmol/L (136-145)
--- NOTE | 2019-03-25 07:04 | PDOC.CPN ---
- Subjective Date: 03/25/19 Time: 13:42 Interval history: Pt with hypotension intermittently No current complaints Feels comfortable - Objective Allergies/Adverse Reactions: Allergies Allergy/AdvReac Type Severity Reaction Status Date / Time whey Allergy Mild Verified 03/20/19 15:34 No Known Drug Allergies Allergy Verified 03/20/19 15:14 Visit Medications: Current Medications Acetaminophen (Tylenol) 650 mg PO Q4H PRN PRN Reason: Headache/Fever/Mild Pain (1-3) Acetaminophen (Tylenol) 650 mg SC Q4H PRN PRN Reason: Headache/Fever/Mild Pain (1-3) Allopurinol (Zyloprim) 100 mg PO DAILY [facility] Last Admin: 03/24/19 17:45 Dose: 100 mg Atorvastatin Calcium (Lipitor) 20 mg PO HS [facility] Last Admin: 03/24/19 20:29 Dose: 20 mg Carbidopa/Levodopa (Sinemet 25-100) 1 tab PO TID [facility] Last Admin: 03/24/19 20:30 Dose: 1 tab Carvedilol (Coreg) 6.25 mg PO DAILY [facility] Last Admin: 03/24/19 07:42 Dose: 6.25 mg Cholecalciferol (Vitamin D3) 1,000 units PO DAILY [facility] Last Admin: 03/24/19 17:15 Dose: 1,000 units Dextrose/Water (Dextrose 50%) 25 gm SLOW IVP PRN PRN PRN Reason: Hypoglycemia Donepezil HCl (Aricept) 5 mg PO DAILY [facility] Last Admin: 03/24/19 17:15 Dose: 5 mg Dutasteride (Avodart) 0.5 mg PO DAILY [facility] Last Admin: 03/24/19 19:51 Dose: Not Given Finasteride (Proscar) 5 mg PO DAILY [facility] Last Admin: 03/24/19 17:15 Dose: 5 mg Folic Acid (Folvite) 1 mg PO DAILY [facility] Last Admin: 03/24/19 17:15 Dose: 1 mg Furosemide (Lasix) 40 mg SLOW IVP 0600,1400 [facility] Last Admin: 03/25/19 04:54 Dose: 40 mg Gabapentin (Neurontin) 100 mg PO TID [facility] Last Admin: 03/24/19 20:29 Dose: 100 mg Glucagon (Glucagon) 1 mg IM PRN PRN PRN Reason: Hypoglycemia Meropenem 2 gm/ Sodium (Chloride) 100 mls @ 100 mls/hr IVPB 0400,1200,2000 [facility] Last Admin: 03/25/19 04:17 Dose: 100 mls Dextrose/Water (D5w) 1,000 mls @ 0 mls/hr IV .Q0M PRN PRN Reason: Hypoglycemia Insulin Human Lispro (Humalog) 0 units SC .MODERATE SLIDING SC PRN PRN Reason: Moderate Correctional Scale Insulin Human Lispro (Humalog) 0 units SC .BEDTIME SLIDING SC PRN PRN Reason: Bedtime Correctional Scale Melatonin (Melatonin) 6 mg PO HS [facility] Last Admin: 03/24/19 20:30 Dose: 6 mg Polyethylene Glycol (Miralax) 17 gm PO DAILY [facility] Last Admin: 03/24/19 19:51 Dose: Not Given Saccharomyces Boulardii (Florastor) 250 mg PO DAILY [facility] Last Admin: 03/24/19 19:51 Dose: Not Given Sertraline HCl (Zoloft) 100 mg PO DAILY [facility] Last Admin: 03/24/19 17:15 Dose: 100 mg Sodium Chloride (Flush - Normal Saline) 10 ml IVF PRN PRN PRN Reason: Saline Flush Last Admin: 03/24/19 20:29 Dose: 10 ml Sodium Chloride (Flush - Normal Saline) 10 ml IVF PRN PRN PRN Reason: Saline Flush Tamsulosin HCl (Flomax) 0.4 mg PO BID [facility] Last Admin: 03/24/19 20:30 Dose: 0.4 mg Vital Signs & Weight: Vital Signs Temp Pulse Ox 03/25/19 03:25 97.8 F 03/24/19 23:24 98.4 F 03/24/19 20:00 98.0 F 98 03/24/19 19:51 98.4 F Weight 219 lb 9.286 oz - Physical Exam General: alert & oriented x3 HEENT: normocephaly Neck: supple neck, no masses, no bruit Cardiac: regular rate, regular rhythm Lungs: normal exam, no wheezes Neuro: grossly intact Musculoskeletal: no pain - Labs Result Diagrams: 03/25/19 08:27 03/25/19 05:45 - Assessment/Plan Assessment/Plan: Hypotension Severe 3 vessel disease Acute on chronic CHF Anemia CKI s/p ICD Preop clearance 03/25 REC Hypotension may be mutifactorial DC coreg, lasix Pt with severe 3VD and anemia as well that may be contributing factors No other recommendations 03/24 REC Ptr appears euvolemic Pt felt to be at high risk for complications but the benefits of proceeding outweigh the risks; Has done well postop Pt with severe CAD not amenadble to intervention or CABG several years ago Recommend MICU overnight given tenuous situation
[2019-03-25] MEDS: Carbidopa/Levodopa 25-100 mg Tablet PO SCH ×3 (08:47→20:51)
[2019-03-25] MEDS: Carvedilol 6.25 MG TAB PO SCH (08:47)
[2019-03-25] MEDS: Allopurinol 100 MG TAB PO SCH (08:47)
[2019-03-25] MEDS: Dutasteride 0.5 MG CAP PO SCH (08:48)
[2019-03-25] MEDS: Folic Acid 1 MG TAB PO SCH (08:48)
[2019-03-25] MEDS: Finasteride 5 MG TAB PO SCH (08:48)
[2019-03-25] MEDS: Donepezil HCl 5 MG TAB PO SCH (08:48)
[2019-03-25] MEDS: Tamsulosin HCl 0.4 MG CAP PO SCH ×2 (08:48→20:51)
[2019-03-25] MEDS: Polyethylene Glycol 3350 17 GM Packet PO SCH (08:49)
[2019-03-25] MEDS: Saccharomyces boulardii 250 MG CAP PO SCH (08:49)
[2019-03-25] MEDS: Gabapentin 100 MG CAP PO SCH ×3 (08:49→20:51)
[2019-03-25 08:55] LABS: #Eosinphils 0.7 thou/uL (0.0-0.7); #Lymphocytes 1.6 thou/uL (1.20-3.40); #Neutrophils 7.3 thou/uL (1.40-6.50); %Basophils 0.3 % (0.0-1.0); %Eosinophils 6.5 % (0.0-10.0); %Lymphocytes 15.2 % (21.0-51.0); Hemoglobin 9.7 g/dL (14.0-18.0); Mean Corpuscular HGB CONC 32.7 g/dL (32.0-36.0); Mean Corpuscular Hemoglobin 30.1 pg (27.0-31.0); Mean Corpuscular Volume 91.8 fL (78.0-98.0); Mean Platelet Volume 5.9 fL (7.4-10.4); Platelet Count 345 thou/uL (130-400); RBC Distribution Width 14.9 % (11.5-14.5); Red Blood Cell (RBC) Count 3.21 mill/uL (4.70-6.10); White Blood Cell (WBC) Count 10.6 thou/uL (4.8-10.8)
--- NOTE | 2019-03-25 09:26 | PRG ---
DATE OF SERVICE: 03/25/2019 SUBJECTIVE: The patient is alert and awake, no acute distress. He states that he is feeling okay. Denies chest pain or shortness of breath. OBJECTIVE: VITAL SIGNS: Stable. I's and O's, 1120 in, 700 out. He is positive for 120 mL. ABDOMEN: Morbidly obese, protuberant. GENITOURINARY: Benavides catheter is adequately secured, megan pink-tinged urine. LABORATORY DATA: A.m. CBC is pending. Morning BMP, creatinine is 1.51, which is near his baseline. IMPRESSION: Mr. Rowland is an 88-year-old male with; 1. History of horseshoe kidney. 2. History of atrial fibrillation. 3. History of congestive heart failure. 4. History of CLL. 5. Multiple bilateral renal stone burden. 6. History of right high-grade ureteral obstruction due to multiple ureteral calculi. PLAN: He is postop day #1, status post staged right ureteroscopy, laser lithotripsy, intraoperatively found to have severely impacted ureteral stone nidus. Endoscopic clearance of his ureteral stone burden was noted, replacement of ureteral stents. Despite his significant comorbidities, he has tolerated surgery without significant cardiac or pulmonary events. Appreciate hospitalist, cardiology. He has received 2 units since admission and remains hemodynamically stable. Diuresis per Primary Service, Cardiology as needed. Continue indwelling Benavides catheter for now. Anticipated in the next few days, patient will be able to transition back to his rehab facility. His ureteral stent will be removed in my office under local in 3 to 4 week interval. Continue meropenem. One need to coordinate with infectious disease regarding course of antibiotic regimen, as he will have indwelling ureteral stent for few weeks. ? PIC Job ID: [id number] [facility]
[2019-03-25 16:16] VITALS: BP 107/51
--- NOTE | 2019-03-25 17:15 | PDOC.HOSPP ---
- Subjective Encounter Date: 03/25/19 Encounter Time: 16:15 Subjective: f/u s/p laser lithotripsy with stone extraction POD #1. Remains with Benavides catheter in place but complaining of pain in penis after working with PT. Confusion noted per nursing. - Objective Vital Signs & Weight: Vital Signs (12 hours) Temp Pulse BP BP BP Pulse Ox 03/25/19 15:31 62 107/51 L 113/59 L 112/62 03/25/19 12:00 98.0 F 03/25/19 08:00 97.7 F 97 Weight Weight 219 lb 9.286 oz Most Recent Monitor Data Heart Rate from ECG 62 NIBP 101/51 NIBP BP-Mean 67 Respiration from ECG 22 SpO2 100 I&O: 03/24/19 03/25/19 03/26/19 06:59 06:59 06:59 Intake Total 650 1120 Output Total 700 Balance 650 420 Result Diagrams: 03/25/19 08:27 03/25/19 05:45 Additional Labs: Accuchecks 03/25/19 03/25/19 03/24/19 13:03 05:37 20:21 POC Glucose 149 H 86 154 H Microbiology 02/14/19 15:50 Stool C. difficile GDH Antigen & Toxins - Final 03/20/19 22:05 Urine Straight Catheter Urine Culture - Preliminary NO GROWTH AT 12 HOURS Laboratory Tests 02/07/19 02/08/19 02/09/19 03:50 03:30 04:50 Hgb 7.3 L 9.2 L 8.6 L Potassium Creatinine Iron TIBC % Saturation Transferrin Ferritin B-Natriuretic Peptide Vitamin B12 Folate 02/10/19 02/13/19 02/13/19 04:45 05:50 05:50 Hgb 8.7 L 8.6 L Potassium 3.5 Creatinine 2.14 H Iron TIBC % Saturation Transferrin Ferritin B-Natriuretic Peptide Vitamin B12 Folate 02/14/19 03/20/19 03/21/19 06:36 17:12 04:47 Hgb Potassium 3.3 L Creatinine 1.97 H 1.48 H Iron TIBC % Saturation Transferrin Ferritin B-Natriuretic Peptide 807.2 H Vitamin B12 Folate 03/21/19 03/21/19 03/21/19 04:47 17:15 17:15 Hgb 7.5 L Potassium Creatinine Iron 14 L TIBC 126 L % Saturation 11 L Transferrin 101 L Ferritin 1618.50 H B-Natriuretic Peptide Vitamin B12 646 Folate 17.10 03/21/19 03/22/19 22:25 04:12 Hgb 7.6 L 7.8 L Potassium Creatinine Iron TIBC % Saturation Transferrin Ferritin B-Natriuretic Peptide Vitamin B12 Folate EKG Reviewed by me: Yes (Tele - paced) Hospitalist ROS - Medication Medications: Active Medications Generic Name Dose Route Start Last Admin Trade Name Vikki PRN Reason Stop Dose Admin Allopurinol 100 mg 03/21/19 09:00 03/25/19 08:47 Zyloprim PO 100 mg DAILY BERNARDINO Administration Atorvastatin Calcium 20 mg 03/20/19 21:00 03/24/19 20:29 Lipitor PO 20 mg HS BERNARDINO Administration Carbidopa/Levodopa 1 tab 03/20/19 21:00 03/25/19 13:53 Sinemet 25-100 PO 1 tab TID BERNARDINO Administration Cholecalciferol 1,000 units 03/21/19 09:00 03/25/19 08:47 Vitamin D3 PO 1,000 units DAILY BERNARDINO Administration Donepezil HCl 5 mg 03/21/19 09:00 03/25/19 08:48 Aricept PO 5 mg DAILY BERNARDINO Administration Dutasteride 0.5 mg 03/21/19 09:00 03/25/19 08:48 Avodart PO 0.5 mg DAILY BERNARDINO Administration Finasteride 5 mg 03/21/19 09:00 03/25/19 08:48 Proscar PO 5 mg DAILY BERNARDINO Administration Folic Acid 1 mg 03/21/19 09:00 03/25/19 08:48 Folvite PO 1 mg DAILY BERNARDINO Administration Gabapentin 100 mg 03/20/19 21:00 03/25/19 13:53 Neurontin PO 100 mg TID BERNARDINO Administration Meropenem 2 gm/ Sodium 100 mls @ 100 mls/hr 03/21/19 20:00 03/25/19 13:53 Chloride IVPB 100 mls 0400,1200,2000 BERNARDINO Administration Melatonin 6 mg 03/20/19 21:00 03/24/19 20:30 Melatonin PO 6 mg HS BERNARDION Administration Polyethylene Glycol 17 gm 03/21/19 09:00 03/25/19 08:49 Miralax PO 17 gm DAILY BERNARDINO Administration Saccharomyces Boulardii 250 mg 03/21/19 09:00 03/25/19 08:49 Florastor PO 250 mg DAILY BERNARDINO Administration Sertraline HCl 100 mg 03/24/19 09:00 03/25/19 08:49 Zoloft PO 100 mg DAILY BERNARDINO Administration Sodium Chloride 10 ml 03/20/19 15:44 03/24/19 20:29 Flush - Normal Saline IVF 10 ml PRN PRN Administration Saline Flush Tamsulosin HCl 0.4 mg 03/20/19 21:00 03/25/19 08:48 Flomax PO 0.4 mg BID BERNARDINO Administration - Exam General Appearance: awake alert General - other findings: mild distress Eye: PERRL, anicteric sclera ENT: normocephalic atraumatic, no oropharyngeal lesions Neck: supple, symmetric, no JVD, no thyromegaly Heart: RRR, no gallops, no rubs, normal peripheral pulses Respiratory: CTAB, no wheezes, no rales, no ronchi, normal chest expansion Gastrointestinal: soft, non-tender, non-distended, normal bowel sounds, no palpable masses Gastrointestinal - other findings: Benavides in place, TTP in distal urethral region , megan urine in bag Extremities: no cyanosis, 1+ LE edema Skin: normal turgor, no lesions Musculoskeletal: normal tone, generalized weakness Psychiatric: oriented to person, oriented to place Psychiatric - other findings: agitated, repeating words/phrases Hosp A/P (1) Acute on chronic systolic (congestive) heart failure Code(s): I50.23 - ACUTE ON CHRONIC SYSTOLIC (CONGESTIVE) HEART FAILURE Status : Acute Plan: Stable, continue diuresis (2) Anemia in CKD (chronic kidney disease) Code(s): N18.9 - CHRONIC KIDNEY DISEASE, UNSPECIFIED; D63.1 - ANEMIA IN CHRONIC KIDNEY DISEASE Status: Acute Plan: Stable, continue serial H/H, s/p 2u PRBC's (3) Ureterolithiasis Code(s): N20.1 - CALCULUS OF URETER Status: Chronic Plan: s/p laser lithotripsy POD #1, continue Benavides, continue ureteral stent with tentative plan for removal in 3 weeks (4) Nephrolithiasis Status: Chronic (5) CKD (chronic kidney disease) stage 3, GFR 30-59 ml/min Code(s): N18.3 - CHRONIC KIDNEY DISEASE, STAGE 3 (MODERATE) Status: Chronic (6) CLL (chronic lymphocytic leukemia) Code(s): C91.90 - LYMPHOID LEUKEMIA, UNSPECIFIED NOT HAVING ACHIEVED REMISSION Status: Chronic (7) DM type 2 (diabetes mellitus, type 2) Status: Chronic Qualifiers: Diabetes mellitus extermination inspector insulin use: without extermination inspector use Diabetes mellitus complication status: with unspecified complications (8) Ischemic cardiomyopathy Code(s): I25.5 - ISCHEMIC CARDIOMYOPATHY Status: Chronic (9) Parkinson disease Code(s): G20 - PARKINSON'S DISEASE Status: Chronic (10) Physical deconditioning Code(s): R53.81 - OTHER MALAISE Status: Chronic - Plan continue antibiotics, PT/OT, 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
[2019-03-25] MEDS: Melatonin 3 MG TAB PO SCH (20:51)
[2019-03-25] MEDS: Atorvastatin Calcium 20 MG TAB PO SCH (20:51)
[2019-03-26] MEDS: Meropenem 2 GM in Sodium Chloride 0.9% 100 ML IVPB SCH ×3 (04:22→20:24)
[2019-03-26 05:53] LABS: Anion Gap 9 mmol/L (10-20); BUN (Urea Nitrogen) 30 mg/dL (8.4-25.7); Calc. Creatinine Clearance 48 mL/min (70-130); Calcium 8.4 mg/dL (7.8-10.44); Carbon Dioxide 36 mmol/L (23-31); Chloride 98 mmol/L (98-107); Estimated GFR-MDRD 42; Glucose 85 mg/dL (83-110); Potassium 3.9 mmol/L (3.5-5.1); Sodium 139 mmol/L (136-145)
[2019-03-26 07:22] LABS: Hemoglobin 9.1 g/dL (14.0-18.0); Mean Corpuscular Hemoglobin 30.1 pg (27.0-31.0); Mean Corpuscular Volume 94.1 fL (78.0-98.0); Mean Platelet Volume 5.7 fL (7.4-10.4); Platelet Count 321 thou/uL (130-400); Red Blood Cell (RBC) Count 3.02 mill/uL (4.70-6.10); White Blood Cell (WBC) Count 9.7 thou/uL (4.8-10.8)
--- NOTE | 2019-03-26 08:07 | PRG ---
DATE OF SERVICE: 03/26/2019 SUBJECTIVE: The patient is alert, awake, denies chest pain, complaining of discomfort in the left buttock, posterior thigh. Per nursing staff, patient has had limited mobility with physical therapy. Complaining of discomfort at the Benavides catheter site. Urine output is clear yellow. OBJECTIVE: VITAL SIGNS: Stable. He is afebrile. Blood pressure 106/53. I's and O's; 1470 in, 900 out. He is positive 570 mL. Admitting weight 233. Current weight 220. HEART: Regular rate. LUNGS: Audible wheeze. ABDOMEN: Morbidly obese. No rigidity. No rebound. : Benavides catheter removed at bedside demonstrating concentrated yellow urine. The patient was turned laterally with nursing assist demonstrating no evidence of ecchymosis, ulcerative lesions in the posterior thigh of concern. We did remove some towels that were rolled in that region. Sacral decubitus dressing remains in place. PERTINENT LABORATORY DATA: CBC a.m. not drawn, ordered. Creatinine 1.56 near his baseline. IMPRESSION AND PLAN: Mr. Rowland is an 88-year-old male: 1. History of horseshoe kidney with bilateral stone burden. 2. History of atrial fibrillation. 3. History of congestive heart failure. 4. History of chronic lymphocytic leukemia. 5. History of prostate cancer, in remission. 6. History of high-grade right ureteral obstruction impacted with prior history of urosepsis. He is postop day #2, status post staged right ureteroscopy, laser lithotripsy, stent replacement. Benavides catheter removed at the bedside, to aid in physical therapy and out of bed ambulation. Diapers to be placed with pure wick for monitoring his output. Diuresis per Primary/Cardiology as he appears to have audible wheeze. From urologic perspective, he can be transitioned to a regular or telemetry bed per Cardiology discretion. He can be transitioned to rehab when Medical and Cardiology cleared. indwelling ureteral stent will be removed in 3 to 4 week interval in office under local. Continue meropenem per Infectious Disease recommendation. Daily labs. Job ID: [id number] [facility]
[2019-03-26] MEDS: Carbidopa/Levodopa 25-100 mg Tablet PO SCH ×3 (09:11→20:26)
[2019-03-26] MEDS: Allopurinol 100 MG TAB PO SCH (09:11)
[2019-03-26] MEDS: Dutasteride 0.5 MG CAP PO SCH (09:12)
[2019-03-26] MEDS: Saccharomyces boulardii 250 MG CAP PO SCH (09:12)
[2019-03-26] MEDS: Donepezil HCl 5 MG TAB PO SCH (09:12)
[2019-03-26] MEDS: Folic Acid 1 MG TAB PO SCH (09:12)
[2019-03-26] MEDS: Tamsulosin HCl 0.4 MG CAP PO SCH ×2 (09:12→20:25)
[2019-03-26] MEDS: Polyethylene Glycol 3350 17 GM Packet PO SCH (09:12)
[2019-03-26] MEDS: Finasteride 5 MG TAB PO SCH (09:12)
[2019-03-26] MEDS: Gabapentin 100 MG CAP PO SCH ×3 (09:12→20:26)
--- NOTE | 2019-03-26 16:27 | PDOC.HOSPP ---
- Subjective Encounter Date: 03/26/19 Encounter Time: 16:20 Subjective: f/u s/p Laser lithotripsy POD #2 with stone extraction/stent placement. Overall feels ok but nursing reports some wheezing. - Objective Vital Signs & Weight: Vital Signs (12 hours) Temp Pulse Ox 03/26/19 15:23 98.6 F 03/26/19 11:24 97.9 F 03/26/19 08:00 98 03/26/19 07:47 98.3 F Weight Weight 220 lb 0.341 oz Most Recent Monitor Data Heart Rate from ECG 87 NIBP 105/56 NIBP BP-Mean 72 Respiration from ECG 21 SpO2 100 I&O: 03/25/19 03/26/19 03/27/19 06:59 06:59 06:59 Intake Total 1120 1470 Output Total 700 900 Balance 420 570 Result Diagrams: 03/26/19 07:09 03/26/19 05:10 Additional Labs: Accuchecks 03/26/19 03/26/19 03/25/19 11:20 05:39 19:53 POC Glucose 114 H 107 134 H 03/25/19 18:31 POC Glucose 131 H Microbiology 02/14/19 15:50 Stool C. difficile GDH Antigen & Toxins - Final 03/20/19 22:05 Urine Straight Catheter Urine Culture - Preliminary NO GROWTH AT 12 HOURS Laboratory Tests 02/07/19 02/08/19 02/09/19 03:50 03:30 04:50 Hgb 7.3 L 9.2 L 8.6 L Potassium Creatinine Iron TIBC % Saturation Transferrin Ferritin B-Natriuretic Peptide Vitamin B12 Folate 02/10/19 02/13/19 02/13/19 04:45 05:50 05:50 Hgb 8.7 L 8.6 L Potassium 3.5 Creatinine 2.14 H Iron TIBC % Saturation Transferrin Ferritin B-Natriuretic Peptide Vitamin B12 Folate 02/14/19 03/20/19 03/21/19 06:36 17:12 04:47 Hgb Potassium 3.3 L Creatinine 1.97 H 1.48 H Iron TIBC % Saturation Transferrin Ferritin B-Natriuretic Peptide 807.2 H Vitamin B12 Folate 03/21/19 03/21/19 03/21/19 04:47 17:15 17:15 Hgb 7.5 L Potassium Creatinine Iron 14 L TIBC 126 L % Saturation 11 L Transferrin 101 L Ferritin 1618.50 H B-Natriuretic Peptide Vitamin B12 646 Folate 17.10 03/21/19 03/22/19 22:25 04:12 Hgb 7.6 L 7.8 L Potassium Creatinine Iron TIBC % Saturation Transferrin Ferritin B-Natriuretic Peptide Vitamin B12 Folate EKG Reviewed by me: Yes (Tele - Paced in 80's) Hospitalist ROS - Medication Medications: Active Medications Generic Name Dose Route Start Last Admin Trade Name Vikki PRN Reason Stop Dose Admin Allopurinol 100 mg 03/21/19 09:00 03/26/19 09:11 Zyloprim PO 100 mg DAILY BERNARDINO Administration Atorvastatin Calcium 20 mg 03/20/19 21:00 03/25/19 20:51 Lipitor PO 20 mg HS BERNARDINO Administration Carbidopa/Levodopa 1 tab 03/20/19 21:00 03/26/19 09:11 Sinemet 25-100 PO 1 tab TID BERNARDINO Administration Cholecalciferol 1,000 units 03/21/19 09:00 03/26/19 09:11 Vitamin D3 PO 1,000 units DAILY BERNARDINO Administration Donepezil HCl 5 mg 03/21/19 09:00 03/26/19 09:12 Aricept PO 5 mg DAILY BERNARDINO Administration Dutasteride 0.5 mg 03/21/19 09:00 03/26/19 09:12 Avodart PO 0.5 mg DAILY BERNARDINO Administration Finasteride 5 mg 03/21/19 09:00 03/26/19 09:12 Proscar PO 5 mg DAILY BERNARDINO Administration Folic Acid 1 mg 03/21/19 09:00 03/26/19 09:12 Folvite PO 1 mg DAILY BERNARDINO Administration Gabapentin 100 mg 03/20/19 21:00 03/26/19 09:12 Neurontin PO 100 mg TID BERNARDINO Administration Meropenem 2 gm/ Sodium 100 mls @ 100 mls/hr 03/21/19 20:00 03/26/19 11:43 Chloride IVPB 100 mls 0400,1200,2000 BERNARDINO Administration Melatonin 6 mg 03/20/19 21:00 03/25/19 20:51 Melatonin PO 6 mg HS BERNARDINO Administration Polyethylene Glycol 17 gm 03/21/19 09:00 03/26/19 09:12 Miralax PO 17 gm DAILY BERNARDINO Administration Saccharomyces Boulardii 250 mg 03/21/19 09:00 03/26/19 09:12 Florastor PO 250 mg DAILY BERNARDINO Administration Sertraline HCl 100 mg 03/24/19 09:00 03/26/19 09:12 Zoloft PO 100 mg DAILY BERNARDINO Administration Sodium Chloride 10 ml 03/20/19 15:44 03/24/19 20:29 Flush - Normal Saline IVF 10 ml PRN PRN Administration Saline Flush Tamsulosin HCl 0.4 mg 03/20/19 21:00 03/26/19 09:12 Flomax PO 0.4 mg BID BERNARDINO Administration - Exam General Appearance: NAD, awake alert Eye: PERRL, anicteric sclera ENT: normocephalic atraumatic, no oropharyngeal lesions Neck: supple, symmetric, no JVD, no thyromegaly, no lymphadenopathy Heart: RRR, no gallops, no rubs, normal peripheral pulses Respiratory - other findings: exp wheezing, prolonged exp phase Gastrointestinal: soft, non-tender, non-distended, normal bowel sounds, no palpable masses Extremities: no cyanosis, no clubbing, 1+ LE edema Skin: normal turgor Neurological: no new deficit Musculoskeletal: generalized weakness Psychiatric: normal affect, oriented to person, oriented to place Hosp A/P (1) Acute on chronic systolic (congestive) heart failure Code(s): I50.23 - ACUTE ON CHRONIC SYSTOLIC (CONGESTIVE) HEART FAILURE Status : Acute Plan: Add Lasix 20mg IV x 1 dose now then BID, monitor I/O's, daily weight (2) Anemia in CKD (chronic kidney disease) Code(s): N18.9 - CHRONIC KIDNEY DISEASE, UNSPECIFIED; D63.1 - ANEMIA IN CHRONIC KIDNEY DISEASE Status: Acute Plan: post-op blood loss anemia stable currently, serial H/H (3) Ureterolithiasis Code(s): N20.1 - CALCULUS OF URETER Status: Chronic Plan: s/p laser lithotripsy and stone extraction POD #2 (4) Nephrolithiasis Status: Chronic (5) CKD (chronic kidney disease) stage 3, GFR 30-59 ml/min Code(s): N18.3 - CHRONIC KIDNEY DISEASE, STAGE 3 (MODERATE) Status: Chronic (6) CLL (chronic lymphocytic leukemia) Code(s): C91.90 - LYMPHOID LEUKEMIA, UNSPECIFIED NOT HAVING ACHIEVED REMISSION Status: Chronic (7) DM type 2 (diabetes mellitus, type 2) Status: Chronic Qualifiers: 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 insulin use: without penitentiary use Diabetes mellitus complication status: with unspecified complications (8) Ischemic cardiomyopathy Code(s): I25.5 - ISCHEMIC CARDIOMYOPATHY Status: Chronic (9) Parkinson disease Code(s): G20 - PARKINSON'S DISEASE Status: Chronic (10) Physical deconditioning Code(s): R53.81 - OTHER MALAISE Status: Chronic - Plan continue antibiotics, PT/OT, social work associate, respiratory therapy Stable currently PT/OT for mobilization Continue Meropenem IV s/p 2u PRBC's Continue Proscar/Avodart Resume Sertraline 100mg daily Lasix 20mg IV BID Add Duonebs AM Lab: BMP, CBC SNF option pending
[2019-03-26] MEDS ORDERED: Furosemide 20 MG/2 ML VIAL SLOW IVP SCH (16:30)
--- NOTE | 2019-03-26 16:34 | PRG ---
DATE OF SERVICE: 03/26/2019 SUBJECTIVE: The patient is feeling well. He had a complex procedure by Dr. Tejada with extraction of stones that were embedded in the ureteral mucosal wall. He is in no distress. He denies any shortness of breath or abdominal pain. OBJECTIVE: VITAL SIGNS: Showed normal temperature, blood pressure 105/56, pulse is 89. GENERAL: Awake, alert, oriented, chronically ill appearing, in no distress. HEENT: Ocular movements conjugate. Oral cavity moist. NECK: Supple. LUNGS: Symmetric clear breath sounds. HEART: S1 and S2, regular rate. ABDOMEN: Soft, not distended. LABORATORY DATA: White cell count 9.7, hemoglobin 9.1, platelets 321. Creatinine is 1.56, which is stable. ASSESSMENT AND DISCUSSION: Horseshoe kidney with complex stone burden, status post removal via laser lithotripsy and endoscopic assistance. He will continue meropenem or Invanz for another week or so after this procedure, and he probably will need a placement of a PICC line for discharge planning. Job ID: [id number]
--- NOTE | 2019-03-26 16:59 | PDOC.CPN ---
- Subjective Date: 03/26/19 Time: 16:52 - Objective Allergies/Adverse Reactions: Allergies Allergy/AdvReac Type Severity Reaction Status Date / Time whey Allergy Mild Verified 03/20/19 15:34 No Known Drug Allergies Allergy Verified 03/20/19 15:14 Visit Medications: Current Medications Acetaminophen (Tylenol) 650 mg PO Q4H PRN PRN Reason: Headache/Fever/Mild Pain (1-3) Acetaminophen (Tylenol) 650 mg [place] Q4H PRN PRN Reason: Headache/Fever/Mild Pain (1-3) Albuterol/Ipratropium (Duoneb) 3 ml NEB [id number] SCH Allopurinol (Zyloprim) 100 mg PO DAILY [facility] Last Admin: 03/26/19 09:11 Dose: 100 mg Atorvastatin Calcium (Lipitor) 20 mg PO HS [facility] Last Admin: 03/25/19 20:51 Dose: 20 mg Carbidopa/Levodopa (Sinemet 25-100) 1 tab PO TID [facility] Last Admin: 03/26/19 09:11 Dose: 1 tab Cholecalciferol (Vitamin D3) 1,000 units PO DAILY [facility] Last Admin: 03/26/19 09:11 Dose: 1,000 units Dextrose/Water (Dextrose 50%) 25 gm SLOW IVP PRN PRN PRN Reason: Hypoglycemia Donepezil HCl (Aricept) 5 mg PO DAILY [facility] Last Admin: 03/26/19 09:12 Dose: 5 mg Dutasteride (Avodart) 0.5 mg PO DAILY [facility] Last Admin: 03/26/19 09:12 Dose: 0.5 mg Finasteride (Proscar) 5 mg PO DAILY [facility] Last Admin: 03/26/19 09:12 Dose: 5 mg Folic Acid (Folvite) 1 mg PO DAILY [facility] Last Admin: 03/26/19 09:12 Dose: 1 mg Furosemide (Lasix) 20 mg SLOW IVP 0600,1400 [facility] Furosemide (Lasix) 20 mg SLOW IVP NOW [facility] Stop: 03/26/19 18:30 Gabapentin (Neurontin) 100 mg PO TID [facility] Last Admin: 03/26/19 09:12 Dose: 100 mg Glucagon (Glucagon) 1 mg IM PRN PRN PRN Reason: Hypoglycemia Meropenem 2 gm/ Sodium (Chloride) 100 mls @ 100 mls/hr IVPB 0400,1200,2000 [facility] Last Admin: 03/26/19 11:43 Dose: 100 mls Dextrose/Water (D5w) 1,000 mls @ 0 mls/hr IV .Q0M PRN PRN Reason: Hypoglycemia Insulin Human Lispro (Humalog) 0 units SC .MODERATE SLIDING SC PRN PRN Reason: Moderate Correctional Scale Insulin Human Lispro (Humalog) 0 units SC .BEDTIME SLIDING SC PRN PRN Reason: Bedtime Correctional Scale Melatonin (Melatonin) 6 mg PO HS [facility] Last Admin: 03/25/19 20:51 Dose: 6 mg Polyethylene Glycol (Miralax) 17 gm PO DAILY [facility] Last Admin: 03/26/19 09:12 Dose: 17 gm Saccharomyces Boulardii (Florastor) 250 mg PO DAILY [facility] Last Admin: 03/26/19 09:12 Dose: 250 mg Sertraline HCl (Zoloft) 100 mg PO DAILY [facility] Last Admin: 03/26/19 09:12 Dose: 100 mg Sodium Chloride (Flush - Normal Saline) 10 ml IVF PRN PRN PRN Reason: Saline Flush Last Admin: 03/24/19 20:29 Dose: 10 ml Sodium Chloride (Flush - Normal Saline) 10 ml IVF PRN PRN PRN Reason: Saline Flush Tamsulosin HCl (Flomax) 0.4 mg PO BID [facility] Last Admin: 03/26/19 09:12 Dose: 0.4 mg Vital Signs & Weight: Vital Signs Temp Pulse Ox 03/26/19 15:23 98.6 F 03/26/19 11:24 97.9 F 03/26/19 08:00 98 03/26/19 07:47 98.3 F Weight 220 lb 0.341 oz - Physical Exam General: alert & oriented x3 HEENT: normocephaly Neck: no masses Cardiac: no murmur, regular rate Lungs: other (wheezing bilaterally) Abdomen: soft Musculoskeletal: no pain - Labs Result Diagrams: 03/27/19 05:52 03/27/19 05:52 - Assessment/Plan Assessment/Plan: Hypotension Severe 3 vessel disease Acute on chronic CHF Anemia CKI s/p ICD Preop clearance 10/ REC Increase SOB noted Add lasix low dose Pt also wheezing. Add duoneb Tx 03/25 REC Hypotension may be mutifactorial DC coreg, lasix Pt with severe 3VD and anemia as well that may be contributing factors No other recommendations 03/24 REC Ptr appears euvolemic Pt felt to be at high risk for complications but the benefits of proceeding outweigh the risks; Has done well postop Pt with severe CAD not amenadble to intervention or CABG several years ago Recommend MICU overnight given tenuous situation
[2019-03-26] MEDS: Atorvastatin Calcium 20 MG TAB PO SCH (20:25)
[2019-03-26] MEDS: Melatonin 3 MG TAB PO SCH (20:27)
[2019-03-27] MEDS: Meropenem 2 GM in Sodium Chloride 0.9% 100 ML IVPB SCH ×3 (04:16→20:47)
[2019-03-27] MEDS: Furosemide 20 MG/2 ML VIAL SLOW IVP SCH ×2 (05:45→16:42)
[2019-03-27 06:23] LABS: Mean Corpuscular HGB CONC 32.3 g/dL (32.0-36.0); Mean Corpuscular Hemoglobin 30.3 pg (27.0-31.0); Mean Corpuscular Volume 93.7 fL (78.0-98.0); Mean Platelet Volume 5.9 fL (7.4-10.4); Platelet Count 324 thou/uL (130-400); RBC Distribution Width 14.8 % (11.5-14.5); Red Blood Cell (RBC) Count 2.97 mill/uL (4.70-6.10)
[2019-03-27 06:43] LABS: Anion Gap 8 mmol/L (10-20); BUN (Urea Nitrogen) 29 mg/dL (8.4-25.7); Calc. Creatinine Clearance 51 mL/min (70-130); Calcium 8.4 mg/dL (7.8-10.44); Carbon Dioxide 37 mmol/L (23-31); Chloride 96 mmol/L (98-107); Estimated GFR-MDRD 45; Glucose 105 mg/dL (83-110); Sodium 137 mmol/L (136-145)
--- NOTE | 2019-03-27 07:17 | PDOC.CPN ---
- Subjective Date: 03/27/19 Time: 08:00 Interval history: Doing better Less sob after neb treatment and lasix IV - Objective Allergies/Adverse Reactions: Allergies Allergy/AdvReac Type Severity Reaction Status Date / Time whey Allergy Mild Verified 03/20/19 15:34 No Known Drug Allergies Allergy Verified 03/20/19 15:14 Visit Medications: Current Medications Acetaminophen (Tylenol) 650 mg PO Q4H PRN PRN Reason: Headache/Fever/Mild Pain (1-3) Acetaminophen (Tylenol) 650 mg [place] Q4H PRN PRN Reason: Headache/Fever/Mild Pain (1-3) Albuterol/Ipratropium (Duoneb) 3 ml NEB [id number] [facility] Last Admin: 03/26/19 18:22 Dose: 3 ml Allopurinol (Zyloprim) 100 mg PO DAILY [facility] Last Admin: 03/26/19 09:11 Dose: 100 mg Atorvastatin Calcium (Lipitor) 20 mg PO HS [facility] Last Admin: 03/26/19 20:25 Dose: 20 mg Carbidopa/Levodopa (Sinemet 25-100) 1 tab PO TID [facility] Last Admin: 03/26/19 20:26 Dose: 1 tab Cholecalciferol (Vitamin D3) 1,000 units PO DAILY [facility] Last Admin: 03/26/19 09:11 Dose: 1,000 units Dextrose/Water (Dextrose 50%) 25 gm SLOW IVP PRN PRN PRN Reason: Hypoglycemia Donepezil HCl (Aricept) 5 mg PO DAILY [facility] Last Admin: 03/26/19 09:12 Dose: 5 mg Dutasteride (Avodart) 0.5 mg PO DAILY [facility] Last Admin: 03/26/19 09:12 Dose: 0.5 mg Finasteride (Proscar) 5 mg PO DAILY [facility] Last Admin: 03/26/19 09:12 Dose: 5 mg Folic Acid (Folvite) 1 mg PO DAILY [facility] Last Admin: 03/26/19 09:12 Dose: 1 mg Furosemide (Lasix) 20 mg SLOW IVP 0600,1400 [facility] Last Admin: 03/27/19 05:45 Dose: 20 mg Gabapentin (Neurontin) 100 mg PO TID [facility] Last Admin: 03/26/19 20:26 Dose: 100 mg Glucagon (Glucagon) 1 mg IM PRN PRN PRN Reason: Hypoglycemia Meropenem 2 gm/ Sodium (Chloride) 100 mls @ 100 mls/hr IVPB 0400,1200,2000 [facility] Last Admin: 03/27/19 04:16 Dose: 100 mls Dextrose/Water (D5w) 1,000 mls @ 0 mls/hr IV .Q0M PRN PRN Reason: Hypoglycemia Insulin Human Lispro (Humalog) 0 units SC .MODERATE SLIDING SC PRN PRN Reason: Moderate Correctional Scale Insulin Human Lispro (Humalog) 0 units SC .BEDTIME SLIDING SC PRN PRN Reason: Bedtime Correctional Scale Melatonin (Melatonin) 6 mg PO HS [facility] Last Admin: 03/26/19 20:27 Dose: 6 mg Polyethylene Glycol (Miralax) 17 gm PO DAILY [facility] Last Admin: 03/26/19 09:12 Dose: 17 gm Saccharomyces Boulardii (Florastor) 250 mg PO DAILY [facility] Last Admin: 03/26/19 09:12 Dose: 250 mg Sertraline HCl (Zoloft) 100 mg PO DAILY [facility] Last Admin: 03/26/19 09:12 Dose: 100 mg Sodium Chloride (Flush - Normal Saline) 10 ml IVF PRN PRN PRN Reason: Saline Flush Last Admin: 03/24/19 20:29 Dose: 10 ml Sodium Chloride (Flush - Normal Saline) 10 ml IVF PRN PRN PRN Reason: Saline Flush Tamsulosin HCl (Flomax) 0.4 mg PO BID [facility] Last Admin: 03/26/19 20:25 Dose: 0.4 mg Vital Signs & Weight: Vital Signs Temp Pulse Ox 03/27/19 03:30 98.7 F 03/26/19 20:00 98 03/26/19 19:21 99.0 F Weight 221 lb 5.506 oz - Physical Exam General: alert & oriented x3 Neck: supple neck, no masses Cardiac: no murmur, regular rate Lungs: normal exam Neuro: grossly intact Musculoskeletal: no pain - Labs Result Diagrams: 03/27/19 05:52 03/27/19 05:52 - Assessment/Plan Assessment/Plan: Hypotension Severe 3 vessel disease Acute on chronic CHF Anemia CKI s/p ICD Preop clearance 10/3 REC Hypotension improved Breathing better No other recommendations Ok to transfer to medical will follow peripherally 10/2 REC Increase SOB noted Add lasix low dose Pt also wheezing. Add duoneb Tx 03/25 REC Hypotension may be mutifactorial DC coreg, lasix Pt with severe 3VD and anemia as well that may be contributing factors No other recommendations 03/24 REC Ptr appears euvolemic Pt felt to be at high risk for complications but the benefits of proceeding outweigh the risks; Has done well postop Pt with severe CAD not amenadble to intervention or CABG several years ago Recommend MICU overnight given tenuous situation
--- NOTE | 2019-03-27 07:31 | PRG ---
DATE OF SERVICE: 03/27/2019 SUBJECTIVE: The patient without complaints, feeling well, voiding without significant issues. OBJECTIVE: VITAL SIGNS: Stable. I's and O's: 2 L in, 900 out. ABDOMEN: Morbidly obese, protuberant. No CVA tenderness. : No blood at the meatus. PERTINENT LABORATORY DATA: White count 9, hemoglobin 9.0, platelet 324. Creatinine stable at 1.49. IMPRESSION AND PLAN: Mr. Rowland is an 88-year-old male with past medical history of; 1. Horseshoe kidney, bilateral stone burden. 2. Atrial fibrillation. 3. Congestive heart failure. 4. Chronic lymphocytic leukemia. 5. History of prostate cancer, in remission. 6. History of right high-grade ureteral obstruction and impacted ureteral calculi, multiple; postop day #3 status post staged ureteroscopy, laser lithotripsy, stent replacement. patient voiding without significant issues, continue Flomax, Avodart. From urologic perspective, patient can be transitioned back to rehab when cleared by Medical, Cardiology. Appreciate Infectious Disease input, plan Invanz for the next week or two. PICC line is pending for dispo. From urologic perspective, as I have him tentatively scheduled for cysto stent pull April 17 in my office, it would be prudent to continue his antibiotic therapy until his ureteral stent is out. Would discuss with Dr. Alfred if he recommends otherwise. Hopefully, he can be discharged tomorrow after PICC line placement sometime today or tomorrow. Call if any questions or concerns. Appreciate Medical /Cardiology, and Infectious Disease input. Job ID: [id number] [facility]
[2019-03-27] MEDS: Folic Acid 1 MG TAB PO SCH (08:38)
[2019-03-27] MEDS: Allopurinol 100 MG TAB PO SCH (08:38)
[2019-03-27] MEDS: Finasteride 5 MG TAB PO SCH (08:38)
[2019-03-27] MEDS: Gabapentin 100 MG CAP PO SCH ×3 (08:38→20:49)
[2019-03-27] MEDS: Tamsulosin HCl 0.4 MG CAP PO SCH ×2 (08:38→20:48)
[2019-03-27] MEDS: Saccharomyces boulardii 250 MG CAP PO SCH (08:38)
[2019-03-27] MEDS: Carbidopa/Levodopa 25-100 mg Tablet PO SCH ×3 (08:39→20:49)
[2019-03-27] MEDS: Dutasteride 0.5 MG CAP PO SCH (08:39)
[2019-03-27] MEDS: Polyethylene Glycol 3350 17 GM Packet PO SCH (08:39)
[2019-03-27] MEDS: Donepezil HCl 5 MG TAB PO SCH (09:43)
--- NOTE | 2019-03-27 15:40 | SPC ---
PROCEDURE: Peripheral insertion central catheter. INDICATIONS: IV therapy. FINDINGS: A single lumen 5 Chinese PICC line placed via the right brachial vein under ultrasound guidance with f luoroscopic confirmation. The tip is positioned in the SVC. PROCEDURE NOTE: Right upper extremity prepped and draped in a sterile manner. Ultrasound was used to assess the venou s structures. The brachial vein and the proximal humerus region was selected for puncture. Local anes thesia was administered. This vein was punctured under ultrasound guidance with micropuncture technProTip ue. Wire was advanced into the vein. The tip of the wire was positioned in the SVC. Catheter length w as measured and cut. Sheath placed. Catheter advanced over the wire. Peel away sheath removed. Wire r emoved. Catheter was flushed and secured with sterile dressing. There were no problems or complicatio ns. POS: [facility]
[2019-03-27 17:09] LABS: CA Oxalate Monohydrate 65 % (.); CA Phosphate 35 % (.); Color Tan (.); Comment Note: (.); Stone Weight 101.7 mg (.)
--- NOTE | 2019-03-27 19:48 | PDOC.HOSPP ---
- Subjective Encounter Date: 03/27/19 Encounter Time: 15:10 Subjective: f/u s/p laser lithotripsy and stone extraction with stent placement POD #3. Remains on Meropenem and plans for PICC line placement to continue IV abx coverage for approximately one more week after d/c. SOB improved. - Objective Vital Signs & Weight: Vital Signs (12 hours) Temp Pulse Resp Pulse Ox 03/27/19 19:21 98.4 F 03/27/19 18:30 75 22 H 97 03/27/19 16:24 97.6 F 03/27/19 14:05 71 20 100 03/27/19 11:19 97.6 F 03/27/19 10:56 82 19 97 03/27/19 08:00 97 Weight Weight 221 lb 5.506 oz Most Recent Monitor Data Heart Rate from ECG 89 NIBP 111/54 NIBP BP-Mean 73 Respiration from ECG 16 SpO2 100 I&O: 03/26/19 03/27/19 03/28/19 06:59 06:59 06:59 Intake Total 1470 2060 450 Output Total 900 900 750 Balance 570 1160 -300 Result Diagrams: 03/27/19 05:52 03/27/19 05:52 Additional Labs: Accuchecks 03/27/19 03/27/19 03/27/19 17:04 10:54 05:54 POC Glucose 127 H 97 110 03/26/19 20:16 POC Glucose 98 Microbiology 02/14/19 15:50 Stool C. difficile GDH Antigen & Toxins - Final 03/20/19 22:05 Urine Straight Catheter Urine Culture - Preliminary NO GROWTH AT 12 HOURS Laboratory Tests 02/07/19 02/08/19 02/09/19 03:50 03:30 04:50 Hgb 7.3 L 9.2 L 8.6 L Potassium Creatinine Iron TIBC % Saturation Transferrin Ferritin B-Natriuretic Peptide Vitamin B12 Folate 02/10/19 02/13/19 02/13/19 04:45 05:50 05:50 Hgb 8.7 L 8.6 L Potassium 3.5 Creatinine 2.14 H Iron TIBC % Saturation Transferrin Ferritin B-Natriuretic Peptide Vitamin B12 Folate 02/14/19 03/20/19 03/21/19 06:36 17:12 04:47 Hgb Potassium 3.3 L Creatinine 1.97 H 1.48 H Iron TIBC % Saturation Transferrin Ferritin B-Natriuretic Peptide 807.2 H Vitamin B12 Folate 03/21/19 03/21/19 03/21/19 04:47 17:15 17:15 Hgb 7.5 L Potassium Creatinine Iron 14 L TIBC 126 L % Saturation 11 L Transferrin 101 L Ferritin 1618.50 H B-Natriuretic Peptide Vitamin B12 646 Folate 17.10 03/21/19 03/22/19 22:25 04:12 Hgb 7.6 L 7.8 L Potassium Creatinine Iron TIBC % Saturation Transferrin Ferritin B-Natriuretic Peptide Vitamin B12 Folate EKG Reviewed by me: Yes (Tele - Paced in 80's) Hospitalist ROS - Medication Medications: Active Medications Generic Name Dose Route Start Last Admin Trade Name Freq PRN Reason Stop Dose Admin Acetaminophen 650 mg 03/20/19 16:01 03/27/19 08:39 Tylenol PO 650 mg Q4H PRN Administration Headache/Fever/Mild Pain (1-3) Albuterol/Ipratropium 3 ml 03/26/19 19:00 03/27/19 18:30 Duoneb NEB 3 ml [id number] BERNARDINO Administration Allopurinol 100 mg 03/21/19 09:00 03/27/19 08:38 Zyloprim PO 100 mg DAILY BERNARDINO Administration Atorvastatin Calcium 20 mg 03/20/19 21:00 03/26/19 20:25 Lipitor PO 20 mg HS BERNARDINO Administration Carbidopa/Levodopa 1 tab 03/20/19 21:00 03/27/19 16:44 Sinemet 25-100 PO 1 tab TID BERNARDINO Administration Cholecalciferol 1,000 units 03/21/19 09:00 03/27/19 08:38 Vitamin D3 PO 1,000 units DAILY BERNARDINO Administration Donepezil HCl 5 mg 03/21/19 09:00 03/27/19 09:43 Aricept PO 5 mg DAILY BERNARDINO Administration Dutasteride 0.5 mg 03/21/19 09:00 03/27/19 08:39 Avodart PO 0.5 mg DAILY BERNARDINO Administration Finasteride 5 mg 03/21/19 09:00 03/27/19 08:38 Proscar PO 5 mg DAILY BERNARDINO Administration Folic Acid 1 mg 03/21/19 09:00 03/27/19 08:38 Folvite PO 1 mg DAILY BERNARDINO Administration Furosemide 20 mg 10/03/19 06:00 03/27/19 16:42 Lasix SLOW IVP 20 mg 0600,1400 BERNARDINO Administration Gabapentin 100 mg 03/20/19 21:00 03/27/19 16:43 Neurontin PO 100 mg TID BERNARDINO Administration Meropenem 2 gm/ Sodium 100 mls @ 100 mls/hr 03/21/19 20:00 03/27/19 16:41 Chloride IVPB Not Given 0400,1200,2000 BERNARDINO Melatonin 6 mg 03/20/19 21:00 03/26/19 20:27 Melatonin PO 6 mg HS BERNARDINO Administration Polyethylene Glycol 17 gm 03/21/19 09:00 03/27/19 08:39 Miralax PO 17 gm DAILY BERNARDINO Administration Saccharomyces Boulardii 250 mg 03/21/19 09:00 03/27/19 08:38 Florastor PO 250 mg DAILY BERNARDINO Administration Sertraline HCl 100 mg 03/24/19 09:00 03/27/19 08:39 Zoloft PO 100 mg DAILY BERNARDINO Administration Sodium Chloride 10 ml 03/20/19 15:44 03/24/19 20:29 Flush - Normal Saline IVF 10 ml PRN PRN Administration Saline Flush Tamsulosin HCl 0.4 mg 03/20/19 21:00 03/27/19 08:38 Flomax PO 0.4 mg BID BERNARDINO Administration - Exam General Appearance: NAD, awake alert Eye: PERRL, anicteric sclera ENT: normocephalic atraumatic, no oropharyngeal lesions Neck: supple, symmetric, no JVD, no thyromegaly Heart: RRR, no gallops, no rubs, normal peripheral pulses Respiratory - other findings: diminished in bases o/w clear Gastrointestinal: soft, non-tender, non-distended, normal bowel sounds, no palpable masses Extremities: no cyanosis, 1+ LE edema Skin: normal turgor Neurological: cranial nerve grossly intact, no new deficit Musculoskeletal: generalized weakness Psychiatric: oriented to person, oriented to place Hosp A/P (1) Acute on chronic systolic (congestive) heart failure Code(s): I50.23 - ACUTE ON CHRONIC SYSTOLIC (CONGESTIVE) HEART FAILURE Status : Acute Plan: Stable currently, decrease Lasix 20mg IV daily, likely transition to po Lasix (2) Anemia in CKD (chronic kidney disease) Code(s): N18.9 - CHRONIC KIDNEY DISEASE, UNSPECIFIED; D63.1 - ANEMIA IN CHRONIC KIDNEY DISEASE Status: Acute Plan: Stable currently, serial H/H monitoring (3) Ureterolithiasis Code(s): N20.1 - CALCULUS OF URETER Status: Chronic Plan: s/p laser lithotripsy with stone extraction POD #3, s/p ureteral stent placement , continue Meropenem (4) Nephrolithiasis Status: Chronic (5) CKD (chronic kidney disease) stage 3, GFR 30-59 ml/min Code(s): N18.3 - CHRONIC KIDNEY DISEASE, STAGE 3 (MODERATE) Status: Chronic (6) CLL (chronic lymphocytic leukemia) Code(s): C91.90 - LYMPHOID LEUKEMIA, UNSPECIFIED NOT HAVING ACHIEVED REMISSION Status: Chronic (7) DM type 2 (diabetes mellitus, type 2) Status: Chronic Qualifiers: Diabetes mellitus [facility] insulin use: without [facility] use Diabetes mellitus complication status: with unspecified complications (8) Ischemic cardiomyopathy Code(s): I25.5 - ISCHEMIC CARDIOMYOPATHY Status: Chronic (9) Parkinson disease Code(s): G20 - PARKINSON'S DISEASE Status: Chronic (10) Physical deconditioning Code(s): R53.81 - OTHER MALAISE Status: Chronic - Plan continue antibiotics, PT/OT, social media marketer, respiratory therapy, DVT proph w/ SCDs Stable currently PT/OT for mobilization Continue Meropenem IV another week after discharge s/p 2u PRBC's Continue Proscar/Avodart Resume Sertraline 100mg daily Lasix 20mg IV daily Add Duonebs AM Lab: BMP, CBC Transfer to [facility] 03/28/19
[2019-03-27] MEDS: Melatonin 3 MG TAB PO SCH (20:49)
[2019-03-27] MEDS: Atorvastatin Calcium 20 MG TAB PO SCH (20:49)
[2019-03-28] MEDS: Meropenem 2 GM in Sodium Chloride 0.9% 100 ML IVPB SCH (05:29)
[2019-03-28 07:24] LABS: Hemoglobin 9.7 g/dL (14.0-18.0); Mean Corpuscular HGB CONC 31.6 g/dL (32.0-36.0); Mean Corpuscular Volume 95.1 fL (78.0-98.0); Mean Platelet Volume 6.1 fL (7.4-10.4); Platelet Count 327 thou/uL (130-400); RBC Distribution Width 14.8 % (11.5-14.5); Red Blood Cell (RBC) Count 3.23 mill/uL (4.70-6.10); White Blood Cell (WBC) Count 9.3 thou/uL (4.8-10.8)
[2019-03-28 07:44] LABS: Anion Gap 11 mmol/L (10-20); BUN (Urea Nitrogen) 29 mg/dL (8.4-25.7); Calc. Creatinine Clearance 49 mL/min (70-130); Calcium 8.5 mg/dL (7.8-10.44); Carbon Dioxide 34 mmol/L (23-31); Chloride 98 mmol/L (98-107); Estimated GFR-MDRD 43; Glucose 134 mg/dL (83-110); Potassium 3.7 mmol/L (3.5-5.1); Sodium 139 mmol/L (136-145)
--- NOTE | 2019-03-28 07:48 | PRG ---
DATE OF SERVICE: 03/28/2019 SUBJECTIVE: The patient without chest pain, shortness of breath. Appears euvolemic. OBJECTIVE: VITAL SIGNS: Stable. Afebrile. Blood pressure 106/52. I's and O' s 1140 in, 1675 out. He is -535 mL. His weight has been relatively stable. ABDOMEN: Morbidly obese. No rigidity. No rebound. A.m. labs are pending. LABORATORY DATA: 03/20/2019, urine culture negative. IMPRESSION AND PLAN: Mr. Rowland is an 88-year-old male with past medical history, 1. Horseshoe kidneys with bilateral stone burden. 2. History of atrial fibrillation. 3. History of congestive heart failure. 4. Chronic lymphocytic leukemia. 5. History of prostate cancer, in remission. 6. History of right high-grade ureteral obstruction, prior history of urosepsis. He is postop day #4 status post staged right ureteroscopy, laser lithotripsy, stent replacement. Recommend he continue his Flomax, Avodart, IV meropenem via his PICC line. He is scheduled for cysto stent pull under local April 17. He will require IV antibiotic coverage, for ureteral stent placement periprocedural. As such, options include continuing meropenem until the day until day after his stent is removed, conversely it can be discontinued per Infectious Disease after 1 or 2 weeks and we will require to be covered for cysto stent pull under local. As such, I think it would be more efficient if he stays on his antibiotics for his ureteral stent removal in my office until April 18. If it is okay with Infectious Disease, I would prefer as such. Please arrange longterm to provide IV meropenem as advised. From urologic perspective, the patient can be discharged to his rehab facility today. Plan followup CT two days prior to his cysto stent pull to stage his ureteral stone burden. If no obvious ureteral stone burden of concern or newly obstructing stone, plan cysto stent pull under local. addendum: Discussed with infectious disease, approved to continue IV meropenem until April 18, stent pull in my office April 17. Job ID: [id number] MTDD
[2019-03-28] MEDS ORDERED: Furosemide 20 MG/2 ML VIAL SLOW IVP SCH (09:00)
[2019-03-28] MEDS: Dutasteride 0.5 MG CAP PO SCH (09:30)
[2019-03-28] MEDS: Carbidopa/Levodopa 25-100 mg Tablet PO SCH (09:30)
[2019-03-28] MEDS: Tamsulosin HCl 0.4 MG CAP PO SCH (09:30)
[2019-03-28] MEDS: Polyethylene Glycol 3350 17 GM Packet PO SCH (09:30)
[2019-03-28] MEDS: Finasteride 5 MG TAB PO SCH (09:30)
[2019-03-28] MEDS: Allopurinol 100 MG TAB PO SCH (09:30)
[2019-03-28] MEDS: Gabapentin 100 MG CAP PO SCH (09:30)
[2019-03-28] MEDS: Folic Acid 1 MG TAB PO SCH (09:30)
[2019-03-28] MEDS: Saccharomyces boulardii 250 MG CAP PO SCH (09:30)
[2019-03-28] MEDS: Donepezil HCl 5 MG TAB PO SCH (09:31)
[2019-03-28 11:40] VITALS: TEMP 98.2
--- NOTE | 2019-03-28 15:24 | DIS ---
DATE OF ADMISSION: 03/20/2019 DATE OF DISCHARGE: 03/28/2019 DISCHARGE DIAGNOSES: 1. Acute on chronic systolic heart failure. 2. Horseshoe kidneys. 3. Nephrolithiasis. 4. Anemia of chronic kidney disease. 5. Chronic kidney disease, stage 3. 6. Chronic lymphocytic leukemia. 7. Hypotension. 8. Severe coronary artery disease, not amenable to intervention. 9. Ischemic cardiomyopathy, status post AICD with EF of 30% to 35%. 10. Prior history of prostate cancer. 11. Physical deconditioning. 12. Parkinson disease. 13. Type 2 diabetes mellitus. 14. Morbid obesity. 15. Acute respiratory failure with hypoxia. CONSULTS: 1. Urology. 2. Cardiology. 3. Infectious Disease. PROCEDURES PERFORMED: Cystoscopy with right retrograde pyelogram as well as a double-J ureteral stent exchange, flexible ureteroscopy, laser lithotripsy of multiple ureteral calculi, and basket extraction of stone fragments. HOSPITAL COURSE: An 88-year-old male patient with multiple comorbidities including horseshoe kidneys with multiple renal stones with high stone burden complicated by recurrent UTI as well as recent septic shock, who was re-admitted at the recommendation of Urology for interval attention to the bilateral nephrolithiasis. The patient was found to have bilateral leg edema concerning for congestive heart failure. Cardiology consult was obtained, and medications were adjusted to optimize the patient prior to procedure. Initial hypertension improved and the patient subsequently underwent cystoscopy with stent exchange and lithotripsy with extraction of multiple stone fragments. Postoperative recovery was uneventful. Infectious Disease consult was obtained, and broad-spectrum antibiotic therapy was recommended. Hospital course was complicated by hypoxia, which was related to acute on chronic systolic heart failure. The patient was optimized with diuretics with improvement. He was found to have marked physical deconditioning and was subsequently [facility] for restorative therapy prior to removal of stents. The patient also is to be on IV antibiotics until removal of the stent. PHYSICAL EXAMINATION: VITAL SIGNS: Temperature 98.2, pulse 88, respiratory rate 22, SpO2 of 100% on 2 L nasal cannula, and blood pressure is 131/49. GENERAL: Obese male, in no obvious distress. The patient, however, is fatigued. HEENT: Normocephalic and atraumatic. CARDIOVASCULAR: Irregular rhythm with demand ischemia. Normal heart sounds 1 and 2 were noted. RESPIRATORY: Fair air entry bilaterally with prolonged expiration and scattered rhonchi. GI: Obese, soft, nontender, and nondistended with normal bowel sounds. EXTREMITIES: Left upper limb edema as well as bilateral lower extremity edema noted. PRACTICING DERMATOLOGIST: The patient is sleepy, but arousable. Obeys simple commands. Moves extremities. DISCHARGE DISPOSITION: residential facility. DISCHARGE CONDITION: Improved/stable. DISCHARGE MEDICATIONS: Please see discharge med rec. TIME SPENT: This discharge took more than 38 minutes. Job ID: [id number]
== END 2019-03-28 14:50 | DRG 659 ==
LOC: OBSVTOIN 13:57 → 2SE 13:57 → INTOOBSV 13:57 → IMCU/EMU 03-24 13:47
PROVIDERS: ADMIT Family Medicine; ATTEND Family Medicine
PROC: BT1D1ZZ Fluoroscopy of Right Kidney, Ureter and Bladder using Low Osmolar Contrast (ICD-10-PCS; principal; 2019-03-24)
PROC: 0T768DZ Dilation of Right Ureter with Intraluminal Device, Via Natural or Artificial Opening Endoscopic (ICD-10-PCS; 2019-03-24)
PROC: 0TC68ZZ Extirpation of Matter from Right Ureter, Via Natural or Artificial Opening Endoscopic (ICD-10-PCS; 2019-03-24)
PROC: 0TP98DZ Removal of Intraluminal Device from Ureter, Via Natural or Artificial Opening Endoscopic (ICD-10-PCS; 2019-03-24)
PROC: 02HV33Z Insertion of Infusion Device into Superior Vena Cava, Percutaneous Approach (ICD-10-PCS; 2019-03-27)
PROC: B548ZZA Ultrasonography of Superior Vena Cava, Guidance (ICD-10-PCS; 2019-03-27)
DX: N20.2 Calculus of kidney with calculus of ureter (principal); I50.23 Acute on chronic systolic (congestive) heart failure; J96.01 Acute respiratory failure with hypoxia; I13.0 Hypertensive heart and chronic kidney disease with heart failure and stage 1 through stage 4 chronic kidney disease, or unspecified chronic kidney disease; C91.10 Chronic lymphocytic leukemia of B-cell type not having achieved remission; N17.9 Acute kidney failure, unspecified; I42.0 Dilated cardiomyopathy; D63.1 Anemia in chronic kidney disease; G20 Parkinson's disease; J45.909 Unspecified asthma, uncomplicated; E78.5 Hyperlipidemia, unspecified; E11.22 Type 2 diabetes mellitus with diabetic chronic kidney disease; I48.91 Unspecified atrial fibrillation; N18.3 Chronic kidney disease, stage 3 (moderate); I25.10 Atherosclerotic heart disease of native coronary artery without angina pectoris; R53.81 Other malaise; I95.9 Hypotension, unspecified; E66.01 Morbid (severe) obesity due to excess calories; Q63.1 Lobulated, fused and horseshoe kidney; Z85.46 Personal history of malignant neoplasm of prostate; Z90.49 Acquired absence of other specified parts of digestive tract; Z95.810 Presence of automatic (implantable) cardiac defibrillator; Z87.891 Personal history of nicotine dependence; Z79.899 Other long term (current) drug therapy; Z88.8 Allergy status to other drugs, medicaments and biological substances; Q62.61 Deviation of ureter; Z90.89 Acquired absence of other organs; Z79.01 Long term (current) use of anticoagulants; Z68.31 Body mass index [BMI] 31.0-31.9, adult
CPT/HCPCS: 36415; 36416; 36430; 36569; 71045; 74420; 80048; 80053; 81001; 82365; 82607; 82728; 82746; 83540; 83550; 83880; 84466; 85025; 85027; 85610; 86850; 86900; 86901; 87086; 88300; 94640; C1751; C1758; C1769; J1644; J1940; J2185; J2370; J2405; J2916; J3010; J3490; J7620; P9016

== ENCOUNTER 2019-04-09 13:48 | Inpatient (IN) | payer OTHER, MEDICARE ==
[~2019-04-09 13:48] MED LIST changes: -ISOVUE-370 76%-LOCM 1 ML ONE; +Iopamidol 370 76% 100 ML VIAL ONE
[2019-04-09 14:35] LABS: #Eosinphils 0.5 thou/uL (0.0-0.7); #Lymphocytes 1.7 thou/uL (1.20-3.40); #Monocytes 0.6 thou/uL (0.11-0.59); #Neutrophils 4.9 thou/uL (1.40-6.50); %Basophils 0.3 % (0.0-1.0); %Eosinophils 6.8 % (0.0-10.0); %Monocytes 7.4 % (0.0-10.0); %Neutrophils 63.5 % (42.0-75.0); Hemoglobin 9.3 g/dL (14.0-18.0); Mean Corpuscular HGB CONC 31.6 g/dL (32.0-36.0); Mean Corpuscular Hemoglobin 29.6 pg (27.0-31.0); Mean Corpuscular Volume 93.6 fL (78.0-98.0); Mean Platelet Volume 6.2 fL (7.4-10.4); Platelet Count 314 thou/uL (130-400); RBC Distribution Width 15.2 % (11.5-14.5); Red Blood Cell (RBC) Count 3.14 mill/uL (4.70-6.10); White Blood Cell (WBC) Count 7.7 thou/uL (4.8-10.8)
--- NOTE | 2019-04-09 14:41 | RAD ---
FRONTAL RADIOGRAPH CHEST: Date: 04/09/19 COMPARISON: 03/20/19. HISTORY: Chronic pain. FINDINGS: Cardiac silhouette is enlarged. There is atherosclerotic calcification of the aortic arch. There is a stable multilead AICD inserted via left subclavian approach. There is a right upper extremity PICC, distal tip terminating in the region of the cavoatrial junction. Opacity in the left base with obscuration of the left hemidiaphragm suggesting nonspecific left lower lobe consolidation/collapse. There is lateral left pleural thickening, new, suggesting new left pleu ral effusion. There is nonspecific hazy right basilar and right perihilar air space disease, similar when compared to prior imaging. There is a vague 1.5 cm lateral right basilar mass as seen on prior i maging. IMPRESSION: Hazy bibasilar density. Prominent cardiac silhouette with left pleural fluid. The known mass within t he right lung base seen on 03/14/19 CT abdomen/pelvis and 03/20/19 chest x-ray is vaguely visualized on this exam. POS: [facility]
[2019-04-09 14:57] LABS: ALT (SGPT) 7 U/L (8-55); AST (SGOT) 20 U/L (5-34); Albumin 2.1 g/dL (3.4-4.8); Alkaline Phosphatase 83 U/L (40-110); Anion Gap 12 mmol/L (10-20); BUN (Urea Nitrogen) 27 mg/dL (8.4-25.7); Bilirubin, Total 0.3 mg/dL (0.2-1.2); CK (CPK) Less than 9 U/L (30-200); Calc. Creatinine Clearance 0 mL/min (70-130); Calcium 8.2 mg/dL (7.8-10.44); Carbon Dioxide 30 mmol/L (23-31); Chloride 107 mmol/L (98-107); Estimated GFR-MDRD 46; Globulin 3.6 g/dL (2.4-3.5); Glucose 111 mg/dL (83-110); Potassium 4.7 mmol/L (3.5-5.1); Protein, Total 5.7 g/dL (5.8-8.1); Sodium 144 mmol/L (136-145)
[2019-04-09 15:13] LABS: Bilirubin Negative (Negative); Blood, Urine 1+ (Negative); Clarity Turbid (Clear); Glucose, Urine (Dipstick) Normal (Negative); Leukocyte 500 Leu/uL (Negative); Nitrite Negative (Negative); Protein, Urine (Dipstick) 200 mg/dL (Neg-Trace); RBC/HPF 21-50 HPF (0-3); Squamous Epithelial 0-3 HPF (0-3); WBC/HPF Greater than 50 HPF (0-3)
[2019-04-09 15:29] LABS: Bacteria/HPF 1+ HPF (None Seen); Transitional Epithelial 0-3 HPF (None Seen)
--- NOTE | 2019-04-09 16:27 | ULT ---
LEFT UPPER EXTREMITY VENOUS DOPPLER ULTRASOUND: HISTORY: Left arm edema TECHNIQUE: Grayscale color-flow and spectral Doppler imaging of the deep venous systems of the upper extremities was performed on the left. FINDINGS: There is good flow, compression and normal spectral waveforms in the left internal jugular, subclavia n, axillary, brachial, radial, ulnar, basilic and cephalic veins. IMPRESSION: No evidence of DVT in the left upper extremity.
[2019-04-09] MEDS ORDERED: Albumin 25% 25 GM/100 ML BOT IVPB SCH (16:30)
[2019-04-09] MEDS ORDERED: cefTRIAXone\\ROCEPHIN 1 GM VIAL ONE (17:10)
--- NOTE | 2019-04-09 18:19 | CT ---
EXAM: Chest, Abdomen and Pelvic CT scan with contrast: HISTORY: Dyspnea COMPARISON: CT abdomen pelvis 03/14/2019 is referenced FINDINGS: There is moderate bilateral pleural fluid with adjacent consolidation containing air bronchograms inv olving each lung. Scattered groundglass opacities are also present. The thoracic aorta demonstrates diffuse calcification. No pneumothorax. Redemonstration of subcapsular fluid of the horseshoe kidney with adjacent multifocal calcifications. Exophytic cyst anteriorly and laterally from the right renal moiety persists. There is redemonstration of diffuse retroperitoneal fat stranding. The bowel is incompletely evaluated without enteric contrast although is nonobstructed in appearance. The liver, spleen, pancreas, and adrenal glands are stable appearing. Right ureteral stent remains in place. Fluid tracking along each paracol ic gutter is redemonstrated. Osseous structures reveal no interval acute process IMPRESSION: Moderate bilateral pleural effusions with adjacent consolidation indicative of pneumonia. Rounded sup erimposed density of the right lung is redemonstrated, not fully assessed due to the adjacent pleural and parenchymal opacities. Recommend continued follow-up to resolution as the possibility of underlying mass is not excluded. Redemonstration of large subcapsular fluid collection of the horseshoe kidney, with adjacent multifoc al renal calcification. Transcribed Date/Time: 04/09/2019 6:38 PM
[2019-04-09 19:36] LABS: Lactic Acid 0.6 mmol/L (0.5-2.2)
--- NOTE | 2019-04-09 20:52 | PDOC.EVN ---
Event Note - Event Note Event Note: [id number] HP
[2019-04-09] MEDS ORDERED: Ondansetron ODT 4 MG TAB SL PRN (21:03)
[2019-04-09] MEDS ORDERED: Ondansetron PF 4 MG/2 ML Vial IVP PRN (21:03)
[2019-04-09] MEDS ORDERED: Acetaminophen 325 MG TAB PO PRN (21:03)
[2019-04-09] MEDS: Sodium Chloride 0.45% 1,000 ML IV SCH (22:03)
[2019-04-09] MEDS: Cefepime 1 GM in Sodium Chloride 0.9% 100 ML IVPB SCH (22:04)
[2019-04-09] MEDS: Azithromycin 500 MG in Sodium Chloride 0.9% 250 ML 250 ML IVPB SCH (22:52)
--- NOTE | 2019-04-10 00:05 | HP ---
CHIEF COMPLAINT: Weakness and decreased appetite. HISTORY OF PRESENT ILLNESS: Mr. Rowland is an 88-year-old male with multiple medical problems including coronary artery disease, congestive heart failure, arrhythmia, pacemaker, chronic kidney disease, prostate cancer, diabetes, among others, was brought to the emergency room after the family noticed weakness, some alteration in his mental status, and generalized swelling mainly of the left upper extremity. The patient reports that he was admitted here for a kidney stone and had a stent placed. The patient developed a hematoma on his kidney, went into renal failure and was placed on dialysis. Family stated his kidney function has improved and he has since been taken off dialysis. The patient and family also stated that he had another kidney stone and had a stent placed and also had lithotripsy to remove the stone. The patient is currently a resident at [facility]. Workup in the emergency room including imaging studies showed ?pneumonia, but the patient is denying any cough or fever. Also, urinalysis shows questionable UTI, but also showing hematuria. Septic workup done in the ED. The patient is being started on IV antibiotics. The patient is being admitted to hospital for further management. PAST MEDICAL HISTORY: 1. Hypertension. 2. Coronary artery disease. 3. Congestive heart failure. Ejection fraction 35%. 4. Cardiac arrhythmias. 5. Cardiac pacemaker/AICD. 6. Diabetes mellitus. 7. Prostate cancer. 8. Hyperlipidemia. 9. Parkinson disease. 10. Chronic lymphocytic leukemia. PAST SURGICAL HISTORY: 1. Eye surgery. 2. Gallbladder stent removed. 3. Cholecystectomy. 4. Heart surgery as an infant. 5. Tonsillectomy. 6. Pacemaker placement. 7. Kidney stone removal. SOCIAL HISTORY: The patient is a former cigarette smoker. Denies alcohol drinking. Denies drug use. FAMILY HISTORY: Reviewed and noncontributory. ALLERGIES: NO KNOWN ALLERGIES. HOME MEDICATIONS: Please see home medication reconciliation form for updated medications. REVIEW OF SYSTEMS: Review of 14 systems negative except what is mentioned in the history of present illness. PHYSICAL EXAMINATION: GENERAL: The patient is awake, alert, does not appear to be in acute distress. VITAL SIGNS: Blood pressure 110/65, pulse is 70, respiratory rate is 20, temperature is 98. HEAD AND NECK: Normocephalic, atraumatic. NECK: Supple. No JVD. CHEST: Decreased air entry in both bases. HEART: Distant heart sounds. ABDOMEN: Obese, soft. Bowel sounds present. There is right flank pitting edema. NEUROLOGIC: Awake, alert, oriented. EXTREMITIES: Edema present to the right and left upper extremity and edema of both lower extremities. NEUROLOGIC: Awake, alert, oriented. PSYCHIATRIC: Unable to assess. EXTREMITIES: No clubbing or cyanosis. LABORATORY DATA: CT of the chest, abdomen, and pelvis showed moderate bilateral pleural effusions with adjacent consolidation ?pneumonia. Recommend continued followup for evaluation as the possibility of underlying mass is not excluded. Also, it did show re-demonstration of large subcapsular fluid collection of the horseshoe kidney with adjacent multifocal renal calcification. Clostridium difficile negative. Venous Doppler of the left upper extremity negative for DVT. BNP is 1372. Urine is positive for WBCs, RBCs. Sodium is 144, potassium is 4.7, BUN is 27, creatinine 1.4. ASSESSMENT AND PLAN: 1. Weakness. 2. Pneumonia? based on the imaging studies, but the patient does not have any fever or cough, underlying mass cannot be entirely excluded. 3. Urinary tract infection in the setting of hematuria? 4. Chronic kidney disease. 5. Hematuria. 6. Congestive heart failure. PLAN: 1. Admit. 2. Septic workup including urine cultures and blood cultures sent. 3. Continue IV antibiotics for now, reassess in the morning regarding continued antibiotic treatment? 4. Cautious IV fluid hydration given his cardiac history, reassess in a.m. 5. Reconcile home medications. 6. Deep venous thrombosis prophylaxis with SCDs. 7. Expected length of stay, 2 midnights or more. 8. Case discussed with the patient and family. Job ID: [id number]
[2019-04-10] MEDS ORDERED: FLU VACC TS2019-20(65YR UP)/PF 180 MCG/0.5 ML SYRINGE IM ONE (09:00)
[2019-04-10] MEDS: Cefepime 1 GM in Sodium Chloride 0.9% 100 ML IVPB SCH ×2 (10:33→22:25)
[2019-04-10] MEDS: Sodium Chloride 0.45% 1,000 ML IV SCH (10:36)
--- NOTE | 2019-04-10 15:40 | PDOC.HOSPP ---
- Subjective Encounter Date: 04/10/19 Encounter Time: 15:38 Subjective: doing okay, spoke to and son at [facility]. - Objective Vital Signs & Weight: Vital Signs (12 hours) Temp Pulse Resp BP Pulse Ox 04/10/19 03:47 97.8 F 86 20 122/65 98 Weight Admit Weight 238 lb Weight 238 lb Result Diagrams: 04/09/19 14:13 04/09/19 14:13 Additional Labs: Accuchecks 04/10/19 04/10/19 04/09/19 10:56 05:30 21:09 POC Glucose 106 85 125 H Hospitalist ROS - Medication Medications: Active Medications Generic Name Dose Route Start Last Admin Trade Name Freq PRN Reason Stop Dose Admin Cefepime HCl 1 gm/ Sodium 100 mls @ 200 mls/hr 04/09/19 21:00 04/10/19 10:33 Chloride IVPB 100 mls Q12HR BERNARDINO Administration Azithromycin 500 mg/ Sodium 250 mls @ 250 mls/hr 04/09/19 20:00 04/09/19 22: 52 Chloride IVPB 250 mls Q24HR BERNARDINO Administration Sodium Chloride 1,000 mls @ 75 mls/hr 04/09/19 19:30 04/10/19 10:36 1/2 Normal Saline IV 1,000 mls .[id number] BERNARDINO Administration Sodium Chloride 10 ml 04/10/19 09:00 04/10/19 10:39 Flush - Normal Saline IVF Not Given Q12HR BERNARDINO - Exam General Appearance: NAD, awake alert, ill appearing Eye: PERRL, anicteric sclera, scleral icterus ENT: normocephalic atraumatic, no oropharyngeal lesions, moist mucosa, dry oral mucosa Neck: supple, symmetric, no JVD, no thyromegaly, no lymphadenopathy, no carotid bruit, JVD Heart: RRR, no murmur, no gallops, no rubs, normal peripheral pulses, irregular , diminshed peripheral pulses, murmur present, II/IV, III/IV Respiratory: CTAB, no wheezes, no rales, no ronchi, normal chest expansion, no tachypnea, normal percussion, rales, rhonchi, tachypneic, wheezes Gastrointestinal: soft, non-tender, non-distended, normal bowel sounds, no palpable masses, no hepatomegaly, no splenomegaly, no bruit, no guarding, no rigidity, tender to palpation, distended, diminished bowl sounds, voluntary guarding Extremities: no cyanosis, no clubbing, no edema, 1+ LE edema, 2+ LE edema, clubbing Hosp A/P - Plan old records reviewed/req Consult ID for IV antibiotic management as the patient has been on several IV antibiotics for the past one month.
[2019-04-10] MEDS: Azithromycin 500 MG in Sodium Chloride 0.9% 250 ML 250 ML IVPB SCH (20:31)
[2019-04-11] MEDS ORDERED: Sodium Chloride 0.45% 1,000 ML IV SCH (02:53)
[2019-04-11 03:19] LABS: #Eosinphils 0.1 thou/uL (0.0-0.7); #Lymphocytes 1.7 thou/uL (1.20-3.40); #Monocytes 0.7 thou/uL (0.11-0.59); %Basophils 0.5 % (0.0-1.0); %Eosinophils 1.4 % (0.0-10.0); %Lymphocytes 19.3 % (21.0-51.0); %Monocytes 8.4 % (0.0-10.0); %Neutrophils 70.3 % (42.0-75.0); Hemoglobin 9.4 g/dL (14.0-18.0); Mean Corpuscular HGB CONC 32.1 g/dL (32.0-36.0); Mean Corpuscular Hemoglobin 29.9 pg (27.0-31.0); Mean Corpuscular Volume 93.3 fL (78.0-98.0); Mean Platelet Volume 6.2 fL (7.4-10.4); Platelet Count 316 thou/uL (130-400); RBC Distribution Width 15.5 % (11.5-14.5); Red Blood Cell (RBC) Count 3.15 mill/uL (4.70-6.10); White Blood Cell (WBC) Count 8.6 thou/uL (4.8-10.8)
[2019-04-11 03:38] LABS: Anion Gap 10 mmol/L (10-20); BUN (Urea Nitrogen) 24 mg/dL (8.4-25.7); Calc. Creatinine Clearance 62 mL/min (70-130); Calcium 8.5 mg/dL (7.8-10.44); Carbon Dioxide 27 mmol/L (23-31); Chloride 109 mmol/L (98-107); Estimated GFR-MDRD 52; Glucose 108 mg/dL (83-110); Sodium 142 mmol/L (136-145)
[2019-04-11] MEDS: Sodium Chloride 0.45% 1,000 ML IV SCH (04:16)
[2019-04-11] MEDS ORDERED: Nitroglycerin 0.4 MG TAB 1 EACH PO PRN (06:50)
[2019-04-11] MEDS ORDERED: Nitroglycerin 0.4 MG TAB (25 Tab Bottle) ONE (06:52)
--- NOTE | 2019-04-11 06:59 | PDOC.EVN ---
Event Note - Event Note Event Note: RN called - Pt having CP - Will order STAT EKG, trops and CXR
--- NOTE | 2019-04-11 07:52 | RAD ---
PORTABLE CHEST: DATE: 04/11/2019. PROVIDED CLINICAL HISTORY: Shortness of breath. FINDINGS: Comparison 04/09/2019. Evaluation is limited by patient body habitus. The cardiac silhouette appear s enlarged. There is increased left basilar pleural parenchymal opacity. Hazy density overlying the right lung base with blunting of the right costophrenic angle may reflect right pleural fluid. Prom inence of the pulmonary interstitium. No evidence for pneumothorax. IMPRESSION: Limited study. Increasing left basilar pleural parenchymal opacities likely reflecting effusion and adjacent atelectasis or infiltrate. Right-sided pleural effusion and vascular congestion along with cardiomegaly are noted. POS: OFF
[2019-04-11] MEDS: Dutasteride 0.5 MG CAP PO SCH (08:45)
[2019-04-11] MEDS: Cefepime 1 GM in Sodium Chloride 0.9% 100 ML IVPB SCH (08:46)
[2019-04-11] MEDS: Gabapentin 100 MG CAP PO SCH ×3 (08:46→22:04)
[2019-04-11] MEDS: Tamsulosin HCl 0.4 MG CAP PO SCH (08:46)
[2019-04-11] MEDS ORDERED: Carbidopa/Levodopa 25-100 mg Tablet PO SCH (09:00)
--- NOTE | 2019-04-11 11:37 | PDOC.HOSPP ---
- Subjective Encounter Date: 04/11/19 Encounter Time: 11:35 Subjective: the patient has been resting comfortably - Objective Vital Signs & Weight: Vital Signs (12 hours) Temp Pulse Resp BP Pulse Ox 04/11/19 11:19 98.5 F 90 17 120/66 95 04/11/19 08:00 97.9 F 88 17 110/50 L 97 04/11/19 06:43 95 04/11/19 06:40 82 24 H 04/11/19 04:00 97.5 F L 84 20 116/60 94 L 04/11/19 00:00 97.4 F L 98 22 H 138/65 92 L Weight Admit Weight 238 lb Weight 240 lb 1.6 oz I&O: 04/10/19 04/11/19 04/12/19 06:59 06:59 06:59 Intake Total 3280 Balance 3280 Result Diagrams: 04/11/19 03:10 04/11/19 03:10 Additional Labs: Accuchecks 04/11/19 04/11/19 04/10/19 10:43 05:29 20:10 POC Glucose 124 H 108 150 H 04/10/19 16:41 POC Glucose 116 H Hospitalist ROS - Medication Medications: Active Medications Generic Name Dose Route Start Last Admin Trade Name Freq PRN Reason Stop Dose Admin Albuterol/Ipratropium 3 ml 04/11/19 06:17 04/11/19 06:40 Duoneb NEB 3 ml [id number] PRN Administration SOB &/or Wheezing Carbidopa/Levodopa 1 tab 04/11/19 09:00 04/11/19 08:49 Sinemet 25-100 PO 1 tab TID BERNARDINO Administration Dutasteride 0.5 mg 04/11/19 09:00 04/11/19 08:45 Avodart PO 0.5 mg DAILY BERNARDINO Administration Gabapentin 100 mg 04/11/19 09:00 04/11/19 08:46 Neurontin PO 100 mg TID BERNARDINO Administration Cefepime HCl 1 gm/ Sodium 100 mls @ 200 mls/hr 04/09/19 21:00 04/11/19 08:46 Chloride IVPB 100 mls Q12HR BERNARDINO Administration Azithromycin 500 mg/ Sodium 250 mls @ 250 mls/hr 04/09/19 20:00 04/10/19 20: 31 Chloride IVPB 250 mls Q24HR BERNARDINO Administration Sertraline HCl 100 mg 04/11/19 09:00 04/11/19 08:46 Zoloft PO 100 mg BID BERNARDINO Administration Sodium Chloride 10 ml 04/10/19 09:00 04/11/19 08:47 Flush - Normal Saline IVF 10 ml Q12HR BERNARDINO Administration Tamsulosin HCl 0.4 mg 04/11/19 09:00 04/11/19 08:46 Flomax PO 0.4 mg DAILY BERNARDINO Administration - Exam General Appearance: NAD, awake alert, ill appearing Eye: PERRL, anicteric sclera, scleral icterus ENT: normocephalic atraumatic, no oropharyngeal lesions, moist mucosa, dry oral mucosa Heart: RRR, no murmur, no gallops, no rubs, normal peripheral pulses, irregular , diminshed peripheral pulses, murmur present, II/IV, III/IV Respiratory: CTAB, no wheezes, no rales, no ronchi, normal chest expansion, no tachypnea, normal percussion, rales, rhonchi, tachypneic, wheezes Gastrointestinal: soft, non-tender, non-distended, normal bowel sounds, no palpable masses, no hepatomegaly, no splenomegaly, no bruit, no guarding, no rigidity, tender to palpation, distended, diminished bowl sounds, voluntary guarding Extremities: no cyanosis, no clubbing, no edema, 1+ LE edema, 2+ LE edema, clubbing Hosp A/P (1) Pneumonia Code(s): J18.9 - PNEUMONIA, UNSPECIFIED ORGANISM Status: Acute Qualifiers: Lung location: unspecified part of lung - Plan old records reviewed/req Consult ID for IV antibiotic management as the patient has been on several IV antibiotics for the past one month. Consider LTAC
--- NOTE | 2019-04-11 13:35 | CON ---
DATE OF CONSULTATION: REQUEST FOR CONSULT: Son, family member. The patient currently admitted for generalized weakness, swelling of the left upper extremity, chest pain workup in progress. PREVIOUS UROLOGIST: Dr. Soumya Mcknight. HISTORY OF PRESENT ILLNESS: Mr. Rowland is a present 88-year-old male with history of prostate cancer previously on Casodex, horseshoe kidney, multiple bilateral extensive stone moiety, who was admitted back in January 2019, whom I had seen the patient as an inpatient consultation as Dr. Mcknight is no longer present locally. He presented with high-grade right ureteral obstruction due to multiple ureteral calculi, subcapsular bleed, calyceal rupture due to high-grade ureteral obstruction. He initially underwent stent placement, was dialyzed due to multiorgan failure, was seen by Infectious Disease, Cardiology, and Pulmonology and has an extensive hospital stay. He underwent staged ureteroscopy and laser lithotripsy, his stones were very difficult to treat in the ureter as they were impacted and obstructed for prolonged period of time and given extensive disease, he underwent ureteroscopy. Although, surgery was challenging, endoscopic clearance of the ureteral stones were noted. He did have embedment of the ureteral stone on ureteroscopy. I did not approach his renal calculi, as he does have significant subcapsular hematoma, and prior history of bleeding. Moreover, we wanted to minimize intraoperative time , as the goal was to clear his ureteral stone burden component only due to his high risk comorbidities. The patient and family agree to this as he is frail, high risk for surgical intervention due to his comorbidities. He is scheduled for cysto stent pull in my office next , son has stopped by my office regarding his admission and desires for me to check on his father. Records reviewed. He had a CT of the abdomen, pelvis, and chest with contrast on arrival, which demonstrated pleural effusion, likely right lower lobe pneumonia, he has a stable horseshoe kidney with subcapsular fluid and hematoma as previous with no significant enlargement. There is no gross hydronephrosis per se. The right ureteral stent is in good position. He did have a Doppler of his left upper extremity, which demonstrated edema demonstrating no evidence of DVT. He had chest pain this morning and is currently being worked up with chest x-ray and troponins. His renal function on arrival is stable at his baseline, this morning is 1.3. He has been without fever with no significant leukocytosis. His urine culture, blood culture, and C. diff are negative thus far and currently, he is on Zithromax and cefepime per Primary Service. PAST MEDICAL HISTORY: Asthma, cardiomyopathy followed by Dr. Shin, dyslipidemia, type 2 diabetes, hypertension, history of CHF, Parkinson's, obesity, prostate cancer in remission previously on Casodex, history of chronic renal insufficiency followed by Dr. Vera, and history of lymphocytic leukemia followed by Dr. Mccann. PAST SURGICAL HISTORY: Includes laparoscopic cholecystectomy; tonsillectomy; pacemaker defibrillator; retinal surgery; cystoscopy; circumcision; bladder irrigation of bladder stones by Dr. Mcknight in April 2018; history of right 6 x 22 stent, subsequent right ureteroscopy and laser lithotripsy on February 26; staging ureteroscopy, laser lithotripsy, clearance of his right ureteral stone burden on March 24, 2019. ALLERGIES: HE HAS NO KNOWN DRUG ALLERGIES. REVIEW OF SYSTEMS: Ten-point review of systems as above, otherwise noncontributory. He lives currently in a rehab facility, followed by Dr. Cruz. He is full code. PHYSICAL EXAMINATION: VITAL SIGNS: Stable. He is afebrile,VSS , oxygen saturation 95% on 2 L, and blood pressure 116/60. GENERAL: He has been incontinent. There is no gross history of gross hematuria ; however, his microscopic hematuria on arrival as expected with ureteral stent and kidney stone. The patient is easily arousable, recognizes me as one of his providers. HEENT: Grossly unremarkable. HEART: Regular rate. LUNGS: Distant intermittent wheeze. ABDOMEN: Morbidly obese, protuberant. EXTREMITIES: There is evidence of left upper extremity edema and mild erythema. : Circumcised meatus is grossly unremarkable. Diaper demonstrates no significant saturation with blood. EXTREMITIES: Demonstrate chronic bilateral lower extremity chronic venous stasis edema. PERTINENT LABORATORY AND IMAGING DATA: White count today is 8, hemoglobin 9.4, platelet 316. On arrival, his creatinine is 1.4, which is near his baseline, creatinine today is 1.3. Urine culture preliminary is negative. UA demonstrates yellow, 200 of protein, 500 leukocytes, 20 to 50 wbc's, greater than 50 rbc's, 0 to 3 epithelials, 1+ bacteria. Culture preliminary negative. Blood culture preliminary negative. C. diff negative. CT of the chest, abdomen, and pelvis with contrast, which I reviewed myself, demonstrates moderate bilateral pleural effusion with consolidation indicating pneumonia. Redemonstration of subcapsular fluid of his right horseshoe kidney with multiple renal calcific density as previous, right anterior renal cyst. Right ureteral stent is in good position, which I reviewed myself. I do not appreciate any gross evidence of right ureteral stone burden of concern. IMPRESSION AND PLAN: Mr. Rowland is an 88-year-old male with past medical history of: 1. History of prostate cancer, history of horseshoe kidney, history of atrial fibrillation. 2. History of congestive heart failure. 3. History of chronic lymphocytic leukemia. 4. History of septic shock and urosepsis, with high-grade right ureteral obstruction of his horseshoe kidney due to long-standing ureteral obstruction due to multiple impacted ureteral calculi, status post ureteroscopy and laser lithotripsy on March 24 with resolution of ureteral stone burden. CT recent on admission was reviewed. The patient currently being worked up for medical service for cardiopulmonary issues. I will follow along. Advised to divert to monitor his output, renal function is stable. Pending his clinical course for the next few days, as he is scheduled for outpatient cystoscopy stent pull, anticipate the patient will be in-house until next week. will coordinate a cysto stent pull next Sunday under local versus sedation. Continue broad-spectrum antibiotic therapy until cultures even finalized. Prognosis remains poor and guarded. Job ID: [id number] [facility]
--- NOTE | 2019-04-11 19:53 | CON ---
DATE OF CONSULTATION: 04/11/2019 REASON FOR CONSULTATION: Possible pneumonia. HISTORY OF PRESENT ILLNESS: An 88-year-old known to me from multiple prior visits, who has a history of essential tremor, not Parkinson disease, ischemic cardiomyopathy with pacemaker, prostate cancer in remission, type-2 diabetes, and horseshoe kidney, as well as recently diagnosed CLL, who had extensive urological intervention for clearing of nephrolithiasis associated with his horseshoe kidney. He also has had problems with anasarca, requiring diuresis in the past. He received meropenem for treatment of a presumptive UTI. All prior cultures were negative though except for cultures in 2014. He improved following the most recent interventions and I had seen him on March 26, 2019, and he continued antibiotics for another week. I think he finished it around April 02 or and then was transferred to rehab and then residential. At the residential, the son noticed that he was getting progressively more swollen, has not had a fever. No diarrhea. No genitourinary symptoms. He was then admitted for because of this finding. Actually, he did have some diarrhea also and he was checked for C diff downstairs in the emergency room and it was negative. Initial evaluation with BP 94/52, pulse 80, temperature 98, O2 saturation 98% on oxygen supplementation. In the exam, the patient was in no distress. There was edema in all 4 extremities and the flank as well. Initial laboratory results; white cell count 7.7, hemoglobin 9.3, MCV 93, platelets 314, with 63% neutrophils and 22% lymphocytes. The sodium was 144; creatinine 1.45 on arrival and 1.3, which is the lowest he has had in a while. His liver function was within normal limits. Albumin 2.1, and his albumin has been low since November, consistently low and steadily going down at 2.0 and 2.1. Urinalysis with 200 protein, greater than 50 wbc's, leukocyte esterase 500. Chest x-ray with evidence of bilateral pleural effusions. The chest, abdomen, and pelvis CT that was done demonstrated moderate bilateral pleural effusions with adjacent consolidation indicative of pneumonia, but most likely indicative of atelectasis and large subcapsular fluid collection in horseshoe kidney with adjacent renal calcification. Currently, Mr. Rowland is lying in bed with family in the room. He is awake, oriented, with his usual good humor. He follows commands. Denies headaches. No visual symptoms, sore throat, odynophagia, or dysphagia. No dental pain. No back pain. Mild pain in the right side of the abdomen. No genitourinary symptoms. No joint symptoms. No neurological symptoms. PAST MEDICAL HISTORY: 1. Type-2 diabetes. 2. CLL, on Imbruvica. 3. Nephrolithiasis. 4. Horseshoe kidney. 5. Essential tremor. 6. Prior episodes of what was diagnosed as urosepsis. 7. Subcapsular hematoma in the horseshoe kidney. 8. CHF. 9. AICD placement. 10. Hypoalbuminemia. PAST SURGICAL HISTORY: 1. Cholecystectomy. 2. Nephrolithiasis with stenting. 3. Laser treatment. SOCIAL HISTORY: He had been living with son. Retired. Never smoker. Currently, in the residential. ALLERGIES: NONE. CURRENT MEDICATIONS: 1. DuoNeb. 2. Azithromycin. 3. Carbidopa. 4. Cefepime. 5. Avodart. 6. Neurontin. 7. Melatonin. 8. Nitrostat. 9. Zoloft. 10. Tamsulosin. PHYSICAL EXAMINATION: VITAL SIGNS: T-max 98, blood pressure 110/50, pulse 88, respirations 17, O2 saturation 97% on 2 L nasal cannula. GENERAL: Appears chronically ill, but in no distress. SKIN: With mild erythema, intertriginous maceration in the intergluteal region. The patient has a peripheral IV access and he is voiding in the diaper. No lymphadenopathy. HEENT: Ocular movements conjugate. Sclerae white. Pupils are reactive. Conjunctivae bit pale. Oral cavity still with quite a few teeth in place with the expected decay and gum disease. Oral mucosa is normal. NECK: Supple. No jugular vein distention. LUNGS AND HEART: With diminished breath sounds at bases. S1, S2. Regular rate. No wheezing. No crackles. ABDOMEN: Moderately tender in the right side on percussion. No distention or maybe [id number] distention. No ascites or maybe some ascites noted. EXTREMITIES: There is 3+ edema in all 4 extremities. There is some edema in the abdominal wall as well. No bladder distention. Osteoarthrosis in knees and ankles. Pulses 1+ in dorsalis pedis. Evidence of onychomycosis in the left first toenail. Able to move extremities equally with diffuse weakness. He is oriented, follows commands. Speech appears to be normal. LABORATORY DATA: Latest white cell count 8.6, hemoglobin 9.4, MCV 93, platelets 316. The other findings noted above. Urine culture with yeast species. C diff antigen and toxin negative, and imaging studies as noted above. ASSESSMENT: 1. Ischemic cardiomyopathy, AICD in place, anasarca, worsening chronic renal insufficiency stage 3 to 4 with GFR in the 46 range which is better than what he has been in a while. 2. Hypoalbuminemia, which has been worsening lately. 3. Proteinuria. 4. Chronic lymphocytic leukemia. DISCUSSION: I believe that the clinical evidence argues against the presence of infective pneumonitis and I would recommend discontinuation of antimicrobial therapy at this point. We will submit procalcitonin to verify the interpretation. I believe the anasarca is probably a combination of volume overload plus hypoalbuminemia. In that regard, he may have nephrotic syndrome and we will go ahead and order a 24-hour protein measurement. If he does have nephrotic syndrome, then may have to consider renal consultation since some patients with CLL may develop nephrotic syndrome due to membranous nephropathy. Job ID: [id number] [facility]
[2019-04-11] MEDS: Melatonin 3 MG TAB PO SCH (22:03)
[2019-04-12 05:45] LABS: Anion Gap 8 mmol/L (10-20); BUN (Urea Nitrogen) 22 mg/dL (8.4-25.7); Calc. Creatinine Clearance 67 mL/min (70-130); Calcium 8.8 mg/dL (7.8-10.44); Carbon Dioxide 31 mmol/L (23-31); Chloride 109 mmol/L (98-107); Estimated GFR-MDRD 56; Glucose 88 mg/dL (83-110); Magnesium 2.2 mg/dL (1.6-2.6); Potassium 3.9 mmol/L (3.5-5.1); Sodium 144 mmol/L (136-145)
[2019-04-12] MEDS: Gabapentin 100 MG CAP PO SCH ×3 (09:34→20:22)
[2019-04-12] MEDS: Tamsulosin HCl 0.4 MG CAP PO SCH (09:35)
[2019-04-12] MEDS: Dutasteride 0.5 MG CAP PO SCH (09:35)
--- NOTE | 2019-04-12 10:43 | PRG ---
DATE OF SERVICE: 04/12/2019 SUBJECTIVE: The patient is without complaints. OBJECTIVE: VITAL SIGNS: Stable. He is afebrile. Benavides catheter placed by Primary Service, collecting 24-hour urine. ABDOMEN: Soft, nontender, nondistended. No CVA tenderness. : Benavides catheter draining yellow urine. PERTINENT LABORATORY DATA: On April 11; white count 8.8, hemoglobin 9.4, platelet 316. Creatinine on April 12 is 1.22. IMPRESSION AND PLAN: Mr. Rowland is an 88-year-old male with; 1. History of congestive heart failure, atrial fibrillation, chronic lymphocytic leukemia, prostate cancer in remission. 2. History of septic shock, urosepsis with high-grade right ureteral obstruction due to multiple impacted ureteral calculi with horseshoe kidney, where he initially presented with subcapsular bleed/hematoma which persists with high-grade obstruction. He underwent ureteroscopy, laser lithotripsy with clearance of his ureteral stone burden. CT on this admission is stable with no gross ureteral calculi of concern. He was scheduled for an outpatient cysto stent pull, I will remove his stent this Sunday inhouse. As such, he will stay inhouse and monitor for tolerability for stent removal. Workup in progress for proteinuria per primary service, I appreciate Infectious Disease input. No antibiotic regimen indicated per Dr. Alfred. However, for cysto stent pull this Sunday, I will provide his previous antibiotic regimen of meropenem, Diflucan, on-call to OR. October BEENA Benavides when workup by Primary Service complete. Continue dutasteride, Flomax. Job ID: [id number] [facility]
--- NOTE | 2019-04-12 12:11 | PDOC.HOSPP ---
- Subjective Encounter Date: 04/12/19 Encounter Time: 08:50 Subjective: Does not verbalize.. Follows commands. - Objective Vital Signs & Weight: Vital Signs (12 hours) Temp Pulse Resp BP Pulse Ox 04/12/19 12:03 99.1 F 70 16 113/56 L 96 04/12/19 07:50 97.5 F L 72 14 114/59 L 95 04/12/19 04:00 97.4 F L 89 20 119/53 L 93 L 04/12/19 02:25 97 Weight Admit Weight 238 lb Weight 239 lb 14.4 oz I&O: 04/11/19 04/12/19 04/13/19 06:59 06:59 06:59 Intake Total 3280 150 240 Output Total 150 Balance 3280 0 240 Result Diagrams: 04/11/19 03:10 04/12/19 04:52 Additional Labs: Accuchecks 04/12/19 04/12/19 04/11/19 10:46 05:43 20:17 POC Glucose 120 H 86 101 04/11/19 16:37 POC Glucose 164 H Hospitalist ROS - Medication Medications: Active Medications Generic Name Dose Route Start Last Admin Trade Name Freq PRN Reason Stop Dose Admin Albuterol/Ipratropium 3 ml 04/11/19 06:17 04/11/19 06:40 Duoneb NEB 3 ml [id number] PRN Administration SOB &/or Wheezing Dutasteride 0.5 mg 04/11/19 09:00 04/12/19 09:35 Avodart PO 0.5 mg DAILY BERNARDINO Administration Gabapentin 100 mg 04/11/19 09:00 04/12/19 09:34 Neurontin PO 100 mg TID BERNARDINO Administration Melatonin 6 mg 04/11/19 21:00 04/11/19 22:03 Melatonin PO 6 mg HS BERNARDINO Administration Sertraline HCl 100 mg 04/11/19 09:00 04/12/19 09:34 Zoloft PO 100 mg BID BERNARDINO Administration Sodium Chloride 10 ml 04/10/19 09:00 04/12/19 09:35 Flush - Normal Saline IVF 10 ml Q12HR BERNARDINO Administration Tamsulosin HCl 0.4 mg 04/11/19 09:00 04/12/19 09:35 Flomax PO 0.4 mg DAILY BERNARDINO Administration - Exam General Appearance: NAD Neck: no JVD Heart: RRR Respiratory: CTAB Gastrointestinal: soft Extremities: 2+ LE edema Hosp A/P (1) Hydroureter Code(s): N13.4 - HYDROURETER Status: Resolved Plan: Seen by .. (2) UTI (urinary tract infection) Status: Acute Plan: Secondary to above.. (3) CKD (chronic kidney disease) stage 3, GFR 30-59 ml/min Code(s): N18.3 - CHRONIC KIDNEY DISEASE, STAGE 3 (MODERATE) Status: Chronic (4) Chronic systolic congestive heart failure, NYHA class 3 Code(s): I50.22 - CHRONIC SYSTOLIC (CONGESTIVE) HEART FAILURE Status: Chronic Plan: No pneumonia per ID.. (5) DM type 2 (diabetes mellitus, type 2) Status: Chronic Qualifiers: Diabetes mellitus terminal block assembler insulin use: without terminal block assembler use Diabetes mellitus complication status: with unspecified complications Plan: BS satisfactory. (6) H/O prostate cancer Code(s): Z85.46 - PERSONAL HISTORY OF MALIGNANT NEOPLASM OF PROSTATE Status: Chronic (7) HTN (hypertension) Code(s): I10 - ESSENTIAL (PRIMARY) HYPERTENSION Status: Chronic Qualifiers: Hypertension type: essential hypertension Qualified Code(s): I10 - Essential (primary) hypertension Plan: BP satisfactory.. - Plan Continue current management.. F/U with , ID..
--- NOTE | 2019-04-12 14:39 | EKG ---
Test Reason : Blood Pressure : / mmHG Vent. Rate : 080 BPM Atrial Rate : 394 BPM P-R Int : 000 ms QRS Dur : 132 ms QT Int : 454 ms P-R-T Axes : 000 094 -67 degrees QTc Int : 523 ms Demand pacemaker; interpretation is based on intrinsic rhythm Undetermined rhythm Right bundle branch block T wave abnormality, consider inferolateral ischemia Abnormal ECG Confirmed by LUAN UGARTE DO ([id number]), managing editor EDI RODAS ([id number]) on 04/12/2019 2:39:20 PM Referred By: Confirmed By:LUAN UGARTE DO
[2019-04-12] MEDS: Melatonin 3 MG TAB PO SCH (20:22)
[2019-04-12 22:16] LABS: Urine Total Volume 525 mL (250-2400)
[2019-04-12 22:45] LABS: Protein - 24 Hr 1087 mg/24 hr (Less than 300); Protein, Urine 207 mg/dL (1-14)
[2019-04-13] MEDS: Dutasteride 0.5 MG CAP PO SCH (09:29)
[2019-04-13] MEDS: Tamsulosin HCl 0.4 MG CAP PO SCH (09:29)
[2019-04-13] MEDS: Gabapentin 100 MG CAP PO SCH ×3 (09:29→21:09)
--- NOTE | 2019-04-13 10:02 | PDOC.HOSPP ---
- Subjective Encounter Date: 04/13/19 Encounter Time: 08:40 Subjective: complaint. Feels better. - Objective Vital Signs & Weight: Vital Signs (12 hours) Temp Pulse Resp BP Pulse Ox 04/13/19 08:00 97.8 F 83 18 118/60 97 04/13/19 04:40 97.7 F 92 14 104/59 L 95 04/13/19 00:15 88 112/52 L 97 Weight Admit Weight 238 lb Weight 241 lb 14.4 oz I&O: 04/12/19 04/13/19 04/14/19 06:59 06:59 06:59 Intake Total 150 1200 Output Total 150 600 Balance 0 600 Result Diagrams: 04/11/19 03:10 04/12/19 04:52 Additional Labs: Accuchecks 04/13/19 04/12/19 04/12/19 04:50 20:45 17:28 POC Glucose 112 H 147 H 112 H 04/12/19 10:46 POC Glucose 120 H Hospitalist ROS - Medication Medications: Active Medications Generic Name Dose Route Start Last Admin Trade Name Freq PRN Reason Stop Dose Admin Albuterol/Ipratropium 3 ml 04/11/19 06:17 04/11/19 06:40 Duoneb NEB 3 ml [id number] PRN Administration SOB &/or Wheezing Dutasteride 0.5 mg 04/11/19 09:00 04/13/19 09:29 Avodart PO 0.5 mg DAILY BERNARDINO Administration Gabapentin 100 mg 04/11/19 09:00 04/13/19 09:29 Neurontin PO 100 mg TID BERNARDINO Administration Melatonin 6 mg 04/11/19 21:00 04/12/19 20:22 Melatonin PO 6 mg HS BERNARDINO Administration Sertraline HCl 100 mg 04/11/19 09:00 04/13/19 09:29 Zoloft PO 100 mg BID BERNARDINO Administration Sodium Chloride 10 ml 04/10/19 09:00 04/12/19 20:22 Flush - Normal Saline IVF 10 ml Q12HR BERNARDINO Administration Tamsulosin HCl 0.4 mg 04/11/19 09:00 04/13/19 09:29 Flomax PO 0.4 mg DAILY BERNARDINO Administration - Exam General Appearance: NAD Neck: no JVD Heart: RRR Respiratory: CTAB Gastrointestinal: soft Extremities: 1+ LE edema Neurological: no focal deficits Hosp A/P (1) Hydroureter Code(s): N13.4 - HYDROURETER Status: Resolved Plan: Seen by . (2) UTI (urinary tract infection) Status: Acute Plan: Secondary to above.. (3) CKD (chronic kidney disease) stage 3, GFR 30-59 ml/min Code(s): N18.3 - CHRONIC KIDNEY DISEASE, STAGE 3 (MODERATE) Status: Chronic Plan: stable (4) Chronic systolic congestive heart failure, NYHA class 3 Code(s): I50.22 - CHRONIC SYSTOLIC (CONGESTIVE) HEART FAILURE Status: Chronic Plan: No superimposed pneumonia.. (5) DM type 2 (diabetes mellitus, type 2) Status: Chronic Qualifiers: Diabetes mellitus intermediate project manager insulin use: without intermediate project manager use Diabetes mellitus complication status: with unspecified complications Plan: on sliding scale.. (6) H/O prostate cancer Code(s): Z85.46 - PERSONAL HISTORY OF MALIGNANT NEOPLASM OF PROSTATE Status: Chronic (7) HTN (hypertension) Code(s): I10 - ESSENTIAL (PRIMARY) HYPERTENSION Status: Chronic Qualifiers: Hypertension type: essential hypertension Qualified Code(s): I10 - Essential (primary) hypertension - Plan Continue current management.. F/U with , ID..
--- NOTE | 2019-04-13 11:58 | PRG ---
DATE OF SERVICE: 04/13/2019 SUBJECTIVE: The patient without complaints, easily arousable. Denies discomfort. OBJECTIVE: VITAL SIGNS: Stable. He is 97 on 3 L. I's and O's 1200 in and 600 out. ABDOMEN: Soft, nontender, nondistended. No rigidity. No rebound. Last creatinine of record is 1.22 from April 12. He has a Benavides catheter as he is being monitored for 24 hour urine collection. IMPRESSION AND PLAN: 1. An 88-year-old male with history of congestive heart failure, atrial fibrillation, chronic lymphocytic leukemia, prostate cancer in remission. 2. History of septic shock due to high-grade right ureteral obstruction due to multiple right impacted ureteral stones. 3. He previously presented with subcapsular hematoma bleed, which persists on recent CT. 4. Staging CT demonstrates no obvious ureteral stone burden of concern. Plan cysto and stent pull this Sunday. 5. Infectious Disease recommendations as previous. No antibiotics warranted at this time, however, I will cover for cysto and stent pull with meropenem and Diflucan. Continue dutasteride and Flomax. follow [facility] Job ID: [id number] [facility]
[2019-04-13] MEDS: Melatonin 3 MG TAB PO SCH (21:09)
[2019-04-14 05:34] LABS: Anion Gap 14 mmol/L (10-20); BUN (Urea Nitrogen) 22 mg/dL (8.4-25.7); Calc. Creatinine Clearance 65 mL/min (70-130); Calcium 9.3 mg/dL (7.8-10.44); Carbon Dioxide 25 mmol/L (23-31); Chloride 107 mmol/L (98-107); Estimated GFR-MDRD 54; Glucose 101 mg/dL (83-110); Potassium 4.5 mmol/L (3.5-5.1); Sodium 141 mmol/L (136-145)
--- NOTE | 2019-04-14 07:40 | PRG ---
DATE OF SERVICE: 04/14/2019 SUBJECTIVE: The patient without complaints. OBJECTIVE: VITAL SIGNS: Stable. Afebrile. Urine output 600. ABDOMEN: Soft, nontender, nondistended. No rigidity. No rebound. Urine output clear. However, there is sediment in the urine. Creatinine 1.2, which is stable. IMPRESSION AND PLAN: 1. 88-year-old male with history of heart failure, atrial fibrillation, chronic lymphocytic leukemia, prostate cancer in remission. 2. 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 3. Previously presented with subcapsular hematoma bleed, which persisted on recent CT. 4. Staging CT demonstrates no obvious ureteral stone burden of concern, plan cysto and stent pull this Sunday. 5. Infectious Disease consult as previous. No antibiotics warranted at this time. I will cover him with meropenem and Diflucan on-call, continue to justify Flomax. Continue present management. Monitor BMP. Job ID: [id number]
--- NOTE | 2019-04-14 08:04 | PDOC.HOSPP ---
- Subjective Encounter Date: 04/14/19 Encounter Time: 07:58 Subjective: has sensation of palpatations, weakness. asks " how many days to be alive?. discussed current care - Objective Vital Signs & Weight: Vital Signs (12 hours) Temp Pulse Resp BP Pulse Ox 04/14/19 04:00 98.8 F 84 16 111/72 97 04/13/19 20:55 98.0 F 93 16 118/61 96 Weight Admit Weight 238 lb Weight 244 lb I&O: 04/13/19 04/14/19 04/15/19 06:59 06:59 06:59 Intake Total 1200 820 Output Total 600 875 Balance 600 -55 Result Diagrams: 04/11/19 03:10 04/14/19 04:54 Additional Labs: Accuchecks 04/14/19 04/13/19 04/13/19 06:16 20:11 16:44 POC Glucose 112 H 128 H 131 H 04/13/19 11:19 POC Glucose 117 H Hospitalist ROS - Medication Medications: Active Medications Generic Name Dose Route Start Last Admin Trade Name Freq PRN Reason Stop Dose Admin Albuterol/Ipratropium 3 ml 04/11/19 06:17 04/11/19 06:40 Duoneb NEB 3 ml [id number] PRN Administration SOB &/or Wheezing Dutasteride 0.5 mg 04/11/19 09:00 04/13/19 09:29 Avodart PO 0.5 mg DAILY BERNARDINO Administration Gabapentin 100 mg 04/11/19 09:00 04/13/19 21:09 Neurontin PO 100 mg TID BERNARDINO Administration Melatonin 6 mg 04/11/19 21:00 04/13/19 21:09 Melatonin PO 6 mg HS BERNARDINO Administration Sertraline HCl 100 mg 04/11/19 09:00 04/13/19 21:08 Zoloft PO 100 mg BID BERNARDINO Administration Sodium Chloride 10 ml 04/10/19 09:00 04/13/19 21:09 Flush - Normal Saline IVF 10 ml Q12HR BERNARDINO Administration Tamsulosin HCl 0.4 mg 04/11/19 09:00 04/13/19 09:29 Flomax PO 0.4 mg DAILY BERNARDINO Administration - Exam General Appearance: awake alert Neck: no JVD Heart: RRR, no murmur Respiratory - other findings: clear anterior chest, decreased BS in bases Gastrointestinal: soft, non-tender, normal bowel sounds Extremities: 2+ LE edema Hosp A/P (1) UTI (urinary tract infection) Status: Ruled-out Qualifiers: Indwelling urinary catheter type: unspecified Encounter type: sequela (2) Chronic systolic congestive heart failure, NYHA class 3 Code(s): I50.22 - CHRONIC SYSTOLIC (CONGESTIVE) HEART FAILURE Status: Chronic (3) Coronary artery disease Code(s): I25.10 - ATHSCL HEART DISEASE OF [place] CORONARY ARTERY W/O ANG PCTRS Status: Chronic Qualifiers: Coronary Disease-Associated Artery/Lesion type: [place] artery [place] vs. transplanted heart: [place] heart Associated angina: without angina Qualified Code(s): I25.10 - Atherosclerotic heart disease of [place] coronary artery without angina pectoris (4) DM type 2 (diabetes mellitus, type 2) Status: Chronic Qualifiers: Diabetes mellitus snf insulin use: without snf use Diabetes mellitus complication status: with kidney complications Diabetes mellitus complication detail: with chronic kidney disease Chronic kidney disease stage : stage 3 (moderate) Qualified Code(s): E11.22 - Type 2 diabetes mellitus with diabetic chronic kidney disease; N18.3 - Chronic kidney disease, stage 3 ( moderate) (5) Dyslipidemia Code(s): E78.5 - HYPERLIPIDEMIA, UNSPECIFIED Status: Chronic (6) HTN (hypertension) Code(s): I10 - ESSENTIAL (PRIMARY) HYPERTENSION Status: Chronic Qualifiers: Hypertension type: essential hypertension Qualified Code(s): I10 - Essential (primary) hypertension (7) Horseshoe kidney Code(s): Q63.1 - LOBULATED, FUSED AND HORSESHOE KIDNEY Status: Chronic (8) Parkinson disease Code(s): G20 - PARKINSON'S DISEASE Status: Chronic (9) Ureterolithiasis Code(s): N20.1 - CALCULUS OF URETER Status: Chronic (10) Hydroureter Code(s): N13.4 - HYDROURETER Status: Resolved - Plan plans removal of ereteral stent in 2 days patient off eliquis, b-bloccker, lasix, statin ,etc restart meds excetpt po lasix, eliquis startiv diuresis, wt up, etc
[2019-04-14] MEDS ORDERED: Allopurinol 100 MG TAB PO SCH (09:00)
[2019-04-14] MEDS ORDERED: Carvedilol 6.25 MG TAB PO SCH (09:00)
[2019-04-14] MEDS: Carvedilol 3.125 MG TAB PO SCH (09:37)
[2019-04-14] MEDS: Finasteride 5 MG TAB PO SCH (09:37)
[2019-04-14] MEDS: Dutasteride 0.5 MG CAP PO SCH (09:37)
[2019-04-14] MEDS: Tamsulosin HCl 0.4 MG CAP PO SCH (09:38)
[2019-04-14] MEDS: Folic Acid 1 MG TAB PO SCH (09:38)
[2019-04-14] MEDS: Gabapentin 100 MG CAP PO SCH ×3 (09:38→21:53)
[2019-04-14] MEDS: Allopurinol 300 MG TAB PO SCH (09:38)
[2019-04-14] MEDS ORDERED: Furosemide 40 MG/4 ML VIAL SLOW IVP SCH (11:15)
[2019-04-14] MEDS: Furosemide 40 MG/4 ML VIAL SLOW IVP SCH (15:05)
[2019-04-14] MEDS ORDERED: SIMVASTATIN 40 MG PO SCH (21:00)
[2019-04-14] MEDS: Donepezil HCl 5 MG TAB PO SCH (21:53)
[2019-04-14] MEDS: Melatonin 3 MG TAB PO SCH (21:53)
[2019-04-14] MEDS: Atorvastatin Calcium 20 MG TAB PO SCH (21:53)
--- NOTE | 2019-04-14 23:05 | EKG ---
Test Reason : C/O CHEST PAIN Blood Pressure : / mmHG Vent. Rate : 080 BPM Atrial Rate : 080 BPM P-R Int : 000 ms QRS Dur : 154 ms QT Int : 486 ms P-R-T Axes : 000 -41 095 degrees QTc Int : 560 ms AV sequential or dual chamber electronic pacemaker When compared with ECG of 09-APR-2019 14:13, (Unconfirmed) Previous ECG has undetermined rhythm, needs review Confirmed by VAL VARGAS M.D. ([id number]) on 04/14/2019 11:04:32 PM Referred By: JUNIOR Confirmed By:VAL VARGAS M.D.
[2019-04-15] MEDS: Furosemide 40 MG/4 ML VIAL SLOW IVP SCH ×2 (05:19→14:25)
[2019-04-15 06:11] LABS: Anion Gap 15 mmol/L (10-20); BUN (Urea Nitrogen) 25 mg/dL (8.4-25.7); Calc. Creatinine Clearance 59 mL/min (70-130); Calcium 8.9 mg/dL (7.8-10.44); Carbon Dioxide 28 mmol/L (23-31); Chloride 104 mmol/L (98-107); Estimated GFR-MDRD 49; Glucose 130 mg/dL (83-110); Potassium 4.5 mmol/L (3.5-5.1); Sodium 142 mmol/L (136-145)
--- NOTE | 2019-04-15 08:20 | PDOC.HOSPP ---
- Subjective Encounter Date: 04/15/19 Encounter Time: 08:18 Subjective: alert, no complaints this AM - Objective Vital Signs & Weight: Vital Signs (12 hours) Temp Pulse Resp BP Pulse Ox 04/15/19 07:53 98.6 F 82 24 H 97/48 L 94 L 04/15/19 04:00 98.5 F 75 20 116/51 L 91 L 04/14/19 21:50 98.5 F 87 20 109/52 L 98 Weight Admit Weight 238 lb Weight 240 lb 7 oz I&O: 04/14/19 04/15/19 04/16/19 06:59 06:59 06:59 Intake Total 820 900 Output Total 875 2325 Balance -55 -3936 Result Diagrams: 04/11/19 03:10 04/15/19 05:08 Additional Labs: Accuchecks 04/15/19 04/14/19 04/14/19 05:29 20:22 17:26 POC Glucose 146 H 205 H 137 H 04/14/19 10:40 POC Glucose 129 H Hospitalist ROS - Medication Medications: Active Medications Generic Name Dose Route Start Last Admin Trade Name Freq PRN Reason Stop Dose Admin Albuterol/Ipratropium 3 ml 04/11/19 06:17 04/11/19 06:40 Duoneb NEB 3 ml [id number] PRN Administration SOB &/or Wheezing Allopurinol 300 mg 04/14/19 09:00 04/14/19 09:38 Zyloprim PO 300 mg DAILY BERNARDINO Administration Atorvastatin Calcium 20 mg 04/14/19 21:00 04/14/19 21:53 Lipitor PO 20 mg HS BERNARDINO Administration Carvedilol 3.125 mg 04/14/19 09:00 04/14/19 09:37 Coreg PO 3.125 mg DAILY BERNARDINO Administration Donepezil HCl 5 mg 04/14/19 21:00 04/14/19 21:53 Aricept PO 5 mg HS BERNARDINO Administration Dutasteride 0.5 mg 04/11/19 09:00 04/14/19 09:37 Avodart PO 0.5 mg DAILY BERNARDINO Administration Finasteride 5 mg 04/14/19 09:00 04/14/19 09:37 Proscar PO 5 mg DAILY BERNARDINO Administration Folic Acid 1 mg 04/14/19 09:00 04/14/19 09:38 Folvite PO 1 mg DAILY BERNARDINO Administration Furosemide 40 mg 04/14/19 14:00 04/15/19 05:19 Lasix SLOW IVP 40 mg 0600,1400 BERNARDINO Administration Gabapentin 100 mg 04/11/19 09:00 04/14/19 21:53 Neurontin PO 100 mg TID BERNARDINO Administration Melatonin 6 mg 04/11/19 21:00 04/14/19 21:53 Melatonin PO 6 mg HS BERNARDINO Administration Sertraline HCl 100 mg 04/11/19 09:00 04/14/19 21:53 Zoloft PO 100 mg BID BERNARDINO Administration Sodium Chloride 10 ml 04/10/19 09:00 04/14/19 21:54 Flush - Normal Saline IVF 10 ml Q12HR BERNARDINO Administration Tamsulosin HCl 0.4 mg 04/11/19 09:00 04/14/19 09:38 Flomax PO 0.4 mg DAILY BERNARDINO Administration - Exam General Appearance: awake alert Heart: RRR, no murmur Respiratory: CTAB Gastrointestinal: soft, normal bowel sounds Extremities: 1+ LE edema Hosp A/P (1) UTI (urinary tract infection) Status: Ruled-out Qualifiers: Indwelling urinary catheter type: unspecified Encounter type: sequela (2) Chronic systolic congestive heart failure, NYHA class 3 Code(s): I50.22 - CHRONIC SYSTOLIC (CONGESTIVE) HEART FAILURE Status: Chronic (3) Coronary artery disease Code(s): I25.10 - ATHSCL HEART DISEASE OF [place] CORONARY ARTERY W/O ANG PCTRS Status: Chronic Qualifiers: Coronary Disease-Associated Artery/Lesion type: [place] artery [place] vs. transplanted heart: [place] heart Associated angina: without angina Qualified Code(s): I25.10 - Atherosclerotic heart disease of [place] coronary artery without angina pectoris (4) DM type 2 (diabetes mellitus, type 2) Status: Chronic Qualifiers: Diabetes mellitus technician terminal and repeater insulin use: without [facility] use Diabetes mellitus complication status: with kidney complications Diabetes mellitus complication detail: with chronic kidney disease Chronic kidney disease stage : stage 3 (moderate) Qualified Code(s): E11.22 - Type 2 diabetes mellitus with diabetic chronic kidney disease; N18.3 - Chronic kidney disease, stage 3 ( moderate) (5) Dyslipidemia Code(s): E78.5 - HYPERLIPIDEMIA, UNSPECIFIED Status: Chronic (6) HTN (hypertension) Code(s): I10 - ESSENTIAL (PRIMARY) HYPERTENSION Status: Chronic Qualifiers: Hypertension type: essential hypertension Qualified Code(s): I10 - Essential (primary) hypertension (7) Horseshoe kidney Code(s): Q63.1 - LOBULATED, FUSED AND HORSESHOE KIDNEY Status: Chronic (8) Parkinson disease Code(s): G20 - PARKINSON'S DISEASE Status: Chronic (9) Ureterolithiasis Code(s): N20.1 - CALCULUS OF URETER Status: Chronic (10) Hydroureter Code(s): N13.4 - HYDROURETER Status: Resolved - Plan plans removal of ureteral stent in day cont to hold eliquis eliquis cont iv diuresis, wt up, etc
[2019-04-15] MEDS: Tamsulosin HCl 0.4 MG CAP PO SCH (08:46)
[2019-04-15] MEDS: Gabapentin 100 MG CAP PO SCH ×3 (08:46→20:49)
[2019-04-15] MEDS: Carvedilol 3.125 MG TAB PO SCH (08:46)
[2019-04-15] MEDS: Dutasteride 0.5 MG CAP PO SCH (08:46)
[2019-04-15] MEDS: Finasteride 5 MG TAB PO SCH (08:46)
[2019-04-15] MEDS: Folic Acid 1 MG TAB PO SCH (08:46)
[2019-04-15] MEDS: Allopurinol 300 MG TAB PO SCH (08:46)
[2019-04-15] MEDS: MEROPENEM 1 GM/50 ML 1 GM in Premix Bag 1 BAG IVPB SCH ×2 (08:48→16:48)
[2019-04-15] MEDS ORDERED: Fluconazole In NaCl,Iso-Osm 200 MG in Premix Bag 1 BAG IVPB SCH (09:00)
--- NOTE | 2019-04-15 09:46 | PRG ---
DATE OF SERVICE: 04/15/2019 SUBJECTIVE: The patient easily arousable. Denies discomfort. OBJECTIVE: VITAL SIGNS: Stable. I's and O's, 2900 in and 2325 out, negative 1.4 L. ABDOMEN: Morbidly obese. No rigidity. No rebound. : Benavides catheter, yellow with sediment. LABORATORY DATA: Creatinine today is 1.3, which is near his baseline. Urine culture on this admission is yeast species. IMPRESSION AND PLAN: 1. Mr. Rowland is an 88-year-old male with history of atrial fibrillation, heart failure, chronic lymphocytic leukemia, and prostate cancer in remission. 2. History of septic shock due to his high-grade right ureteral obstruction with horseshoe kidney, impacted ureteral stone treated. 3. History of subcapsular hematoma, which persists on recent CT. Recent CT scan on this admission demonstrates no obvious ureteral stone or burden. Meropenem and Diflucan started today, n.p.o. after midnight, plan cysto and stent pull tomorrow under local versus TIVA. We will continue to monitor for tolerability of stent pull, if tolerates stent pull, I anticipate the patient can be [facility] . Job ID: [id number]
[2019-04-15] MEDS: Atorvastatin Calcium 20 MG TAB PO SCH (20:49)
[2019-04-15] MEDS ORDERED: Furosemide 20 MG/2 ML VIAL SLOW IVP SCH (21:30)
[2019-04-15] MEDS ORDERED: Furosemide 100 MG/10 ML VIAL SLOW IVP SCH (21:48)
--- NOTE | 2019-04-15 21:51 | PDOC.EVN ---
Event Note - Event Note Event Note: Notified by RN, patient lethargic and with increasing SOB as well as crackles and +3 pitting edema. Receive neb, remains with slight increased work in breathing. Stat CXR and ABG ordered. Will repeat labs including BNP, last one was elevated at 1491 on 04/11. Patient started on Lasix 40 mg twice a day yesterday evening. Has gotten 80 mg IV lasix today in total. Last creatinine was 1.38, will give an additional 80 mg IV Lasix per discussion with Dr. Guerrero, who came to assess patient. Patient for transfer to [facility].
--- NOTE | 2019-04-15 21:59 | RAD ---
PORTABLE AP CHEST X-RAY: 04/15/19 HISTORY: Shortness of breath and crackles. COMPARISON: 04/11/19. FINDINGS: There is now opacification of the left hemithorax likely related to increase in left pleural effusion and associated atelectasis. There is a right pleural effusion with parenchymal change in the right l glenn base, probably related to associated atelectasis. A triple lead left subclavian AICD device remai ns in place. The cardiac silhouette is mostly obscured. Vascular calcifications seen in the thoracic aorta. IMPRESSION: 1. Interval development of complete opacification of the left hemithorax which may be related to a large left pleural effusion and associated atelectasis versus infiltrate. 2. Right pleural effusion and atelectasis overall similar to the prior study given differences i n technique. 3. Mild prominence of the right perihilar interstitial densities similar to prior exam. This cou ld be related to an element of mild pulmonary edema. POS: OFF
[2019-04-15 22:24] LABS: #Eosinphils 0.1 thou/uL (0.0-0.7); #Lymphocytes 1.9 thou/uL (1.20-3.40); #Monocytes 0.7 thou/uL (0.11-0.59); #Neutrophils 5.5 thou/uL (1.40-6.50); %Basophils 0.4 % (0.0-1.0); %Eosinophils 1.1 % (0.0-10.0); %Lymphocytes 23.3 % (21.0-51.0); %Monocytes 8.4 % (0.0-10.0); %Neutrophils 66.8 % (42.0-75.0); Hemoglobin 8.8 g/dL (14.0-18.0); Mean Corpuscular HGB CONC 30.2 g/dL (32.0-36.0); Mean Corpuscular Hemoglobin 28.7 pg (27.0-31.0); Mean Corpuscular Volume 95.2 fL (78.0-98.0); Mean Platelet Volume 6.3 fL (7.4-10.4); Platelet Count 288 thou/uL (130-400); RBC Distribution Width 15.5 % (11.5-14.5); Red Blood Cell (RBC) Count 3.08 mill/uL (4.70-6.10); White Blood Cell (WBC) Count 8.3 thou/uL (4.8-10.8)
[2019-04-15 22:37] LABS: Actual Bicarbonate (HCO3a) 39.9 mEq/L (22-28); Analyzer IN Cardio OR; Calcium, Ionized 1.22 mmol/L (1.12-1.30); Carboxyhemoglobin (COHb) 0.9 gm% (0.0-3.0); O2 Tension (PaO2) 73.4 mmHg (> 60.0); pH, Arterial 7.31 (7.35-7.45)
[2019-04-15 22:40] LABS: ALV-art Gradient 52.635 (0-20); CO2 Tension 81.7 mmHg (35.0-45.0); Puncture Site RRA
[2019-04-15 22:44] LABS: Lactic Acid 0.5 mmol/L (0.5-2.2)
[2019-04-15 22:49] LABS: ALT (SGPT) 10 U/L (8-55); AST (SGOT) 12 U/L (5-34); Albumin 2.5 g/dL (3.4-4.8); Alkaline Phosphatase 71 U/L (40-110); Anion Gap 10 mmol/L (10-20); BUN (Urea Nitrogen) 24 mg/dL (8.4-25.7); Bilirubin, Total 0.3 mg/dL (0.2-1.2); Calc. Creatinine Clearance 60 mL/min (70-130); Calcium 8.9 mg/dL (7.8-10.44); Carbon Dioxide 33 mmol/L (23-31); Chloride 102 mmol/L (98-107); Estimated GFR-MDRD 49; Globulin 4.1 g/dL (2.4-3.5); Glucose 129 mg/dL (83-110); Potassium 4.1 mmol/L (3.5-5.1); Protein, Total 6.6 g/dL (5.8-8.1); Sodium 141 mmol/L (136-145)
[2019-04-15] MEDS: Melatonin 3 MG TAB PO SCH (23:04)
[2019-04-16] MEDS: MEROPENEM 1 GM/50 ML 1 GM in Premix Bag 1 BAG IVPB SCH (01:14)
[2019-04-16 01:38] LABS: Actual Bicarbonate (HCO3a) 37.5 mEq/L (22-28); CO2 Tension 61.5 mmHg (35.0-45.0)
[2019-04-16 01:39] LABS: Hemoglobin (Hb) 9.6 g/dL (14.0-18.0)
[2019-04-16 01:40] LABS: Carboxyhemoglobin (COHb) 1.5 gm% (0.0-3.0)
[2019-04-16 01:41] LABS: Puncture Site RRA
[2019-04-16 01:42] LABS: ALV-art Gradient 98.285 (0-20)
--- NOTE | 2019-04-16 05:30 | PDOC.EVN ---
Event Note - Event Note Event Note: Nurse called pt very lethargic, will get a abg. His cxr is worse and has complete opacification of his left lung. will transfer him to [facility] and put him on a bipap per abg. He will need thoracentesis. He was given an additional dose of lasix.
[2019-04-16 06:01] LABS: Anion Gap 15 mmol/L (10-20); BUN (Urea Nitrogen) 24 mg/dL (8.4-25.7); Calc. Creatinine Clearance 64 mL/min (70-130); Calcium 8.9 mg/dL (7.8-10.44); Carbon Dioxide 30 mmol/L (23-31); Chloride 102 mmol/L (98-107); Estimated GFR-MDRD 54; Glucose 95 mg/dL (83-110); Sodium 143 mmol/L (136-145)
[2019-04-16] MEDS: Furosemide 40 MG/4 ML VIAL SLOW IVP SCH (06:33)
--- NOTE | 2019-04-16 08:08 | PRG ---
DATE OF SERVICE: 04/16/2019 SUBJECTIVE: Events of last night reviewed, patient developed pleural effusion, CHF, has been transitioned to IMCU, provided aggressive diuresis. Currently on CPAP. Son at bedside. OBJECTIVE: GENERAL: Patient is arousable. VITAL SIGNS: Temperature 99.3, pulse 76, blood pressure 122/58. I's and O's: 980 in and 2680 out. He is negative 1.7 L. ABDOMEN: Morbidly obese, protuberant. No rigidity, no rebound. : Benavides catheter draining concentrated yellow urine. LABORATORY DATA: White count yesterday is 8.3, hemoglobin 8.8, platelet 288. Renal function today, creatinine is 1.27. IMPRESSION AND PLAN: 1. An 88-year-old male with history of atrial fibrillation, congestive heart failure, chronic lymphocytic leukemia, prostate cancer in remission. 2. History of septic shock due to high-grade right ureteral obstruction of impacted multiple ureteral calculi, status post ureteroscopy, laser lithotripsy on March 24. 3. History of subcapsular hematoma which persisted on recent admitting CT scan with bilateral renal stone burden with horseshoe kidney. 4. Recent transition back to IMCU due to fluid overload, left pleural effusion. Due to current events of cardiopulmonary decompensation, I will defer his cysto stent pull. Pending his clinical course, I will consider performing under local at bedside. Informed son who is at bedside. The patient may resume his previous diet, discontinue meropenem, Diflucan, which was provided for preop coverage. Job ID: [id number] [facility]
[2019-04-16] MEDS: Gabapentin 100 MG CAP PO SCH ×3 (10:38→20:33)
[2019-04-16] MEDS: Allopurinol 300 MG TAB PO SCH (10:38)
[2019-04-16] MEDS: Folic Acid 1 MG TAB PO SCH (10:38)
[2019-04-16] MEDS: Finasteride 5 MG TAB PO SCH (10:38)
[2019-04-16] MEDS: Dutasteride 0.5 MG CAP PO SCH (10:38)
[2019-04-16] MEDS: Carvedilol 3.125 MG TAB PO SCH (10:38)
[2019-04-16] MEDS: Tamsulosin HCl 0.4 MG CAP PO SCH (10:39)
--- NOTE | 2019-04-16 11:03 | PDOC.HOSPP ---
- Subjective Encounter Date: 04/16/19 Encounter Time: 11:01 Subjective: moved to IM for resp failure , pleural effusion - Objective Vital Signs & Weight: Vital Signs (12 hours) Temp Pulse Resp BP Pulse Ox 04/16/19 07:35 76 04/16/19 07:24 99.3 F 04/16/19 05:49 92 04/16/19 04:46 92 L 04/16/19 04:38 96 04/16/19 03:35 98.8 F 04/16/19 01:51 92 04/16/19 00:06 94 L 04/15/19 23:47 97.4 F L 80 04/15/19 23:27 97.5 F L 70 20 121/67 99 Weight Admit Weight 238 lb Weight 245 lb Most Recent Monitor Data Heart Rate from ECG 77 NIBP 88/56 NIBP BP-Mean 66 Respiration from ECG 19 SpO2 98 I&O: 04/15/19 04/16/19 04/17/19 06:59 06:59 06:59 Intake Total 900 980 Output Total 1616 2680 Balance -1425 -3310 Result Diagrams: 04/15/19 22:17 04/16/19 05:07 Additional Labs: Accuchecks 04/16/19 04/15/19 04/15/19 05:34 20:10 10:52 POC Glucose 102 129 H 172 H Hospitalist ROS - Medication Medications: Active Medications Generic Name Dose Route Start Last Admin Trade Name Freq PRN Reason Stop Dose Admin Albuterol/Ipratropium 3 ml 04/11/19 06:17 04/15/19 21:09 Duoneb NEB 3 ml [id number] PRN Administration SOB &/or Wheezing Allopurinol 300 mg 04/14/19 09:00 04/16/19 10:38 Zyloprim PO 300 mg DAILY BERNARDINO Administration Atorvastatin Calcium 20 mg 04/14/19 21:00 04/15/19 20:49 Lipitor PO 20 mg HS BERNARDINO Administration Carvedilol 3.125 mg 04/14/19 09:00 04/16/19 10:38 Coreg PO 3.125 mg DAILY BERNARDINO Administration Donepezil HCl 5 mg 04/14/19 21:00 04/14/19 21:53 Aricept PO 5 mg HS BERNARDINO Administration Dutasteride 0.5 mg 04/11/19 09:00 04/16/19 10:38 Avodart PO 0.5 mg DAILY BERNARDINO Administration Finasteride 5 mg 04/14/19 09:00 04/16/19 10:38 Proscar PO 5 mg DAILY BERNARDINO Administration Folic Acid 1 mg 04/14/19 09:00 04/16/19 10:38 Folvite PO 1 mg DAILY BERNARDINO Administration Furosemide 40 mg 04/14/19 14:00 04/16/19 06:33 Lasix SLOW IVP 40 mg 0600,1400 BERNARDINO Administration Gabapentin 100 mg 04/11/19 09:00 04/16/19 10:38 Neurontin PO 100 mg TID BERNARDINO Administration Melatonin 6 mg 04/11/19 21:00 04/15/19 23:04 Melatonin PO Not Given HS BERNARDINO Sertraline HCl 100 mg 04/11/19 09:00 04/16/19 10:39 Zoloft PO 100 mg BID BERNARDINO Administration Sodium Chloride 10 ml 04/10/19 09:00 04/16/19 10:39 Flush - Normal Saline IVF 10 ml Q12HR BERNARDINO Administration Tamsulosin HCl 0.4 mg 04/11/19 09:00 04/16/19 10:39 Flomax PO 0.4 mg DAILY BERNARDINO Administration - Exam General Appearance: awake alert Neck: JVD Heart: RRR Respiratory - other findings: dull L chest, adequate BS on R Extremities: 1+ LE edema Hosp A/P (1) Pleural effusion Code(s): J90 - PLEURAL EFFUSION, NOT ELSEWHERE CLASSIFIED Status: Acute (2) Acute on chronic systolic (congestive) heart failure Code(s): I50.23 - ACUTE ON CHRONIC SYSTOLIC (CONGESTIVE) HEART FAILURE Status : Acute (3) Acute respiratory failure with hypoxemia Code(s): J96.01 - ACUTE RESPIRATORY FAILURE WITH HYPOXIA Status: Acute (4) UTI (urinary tract infection) Status: Ruled-out Qualifiers: Indwelling urinary catheter type: unspecified Encounter type: sequela (5) Chronic systolic congestive heart failure, NYHA class 3 Code(s): I50.22 - CHRONIC SYSTOLIC (CONGESTIVE) HEART FAILURE Status: Inactive (6) Coronary artery disease Code(s): I25.10 - ATHSCL HEART DISEASE OF [place] CORONARY ARTERY W/O ANG PCTRS Status: Chronic Qualifiers: Coronary Disease-Associated Artery/Lesion type: [place] artery [place] vs. transplanted heart: [place] heart Associated angina: without angina Qualified Code(s): I25.10 - Atherosclerotic heart disease of [place] coronary artery without angina pectoris (7) DM type 2 (diabetes mellitus, type 2) Status: Chronic Qualifiers: Diabetes mellitus director long term care insulin use: without penitentiary use Diabetes mellitus complication status: with kidney complications Diabetes mellitus complication detail: with chronic kidney disease Chronic kidney disease stage : stage 3 (moderate) Qualified Code(s): E11.22 - Type 2 diabetes mellitus with diabetic chronic kidney disease; N18.3 - Chronic kidney disease, stage 3 ( moderate) (8) Dyslipidemia Code(s): E78.5 - HYPERLIPIDEMIA, UNSPECIFIED Status: Chronic (9) HTN (hypertension) Code(s): I10 - ESSENTIAL (PRIMARY) HYPERTENSION Status: Chronic Qualifiers: Hypertension type: essential hypertension Qualified Code(s): I10 - Essential (primary) hypertension (10) Horseshoe kidney Code(s): Q63.1 - LOBULATED, FUSED AND HORSESHOE KIDNEY Status: Chronic (11) Parkinson disease Code(s): G20 - PARKINSON'S DISEASE Status: Chronic (12) Ureterolithiasis Code(s): N20.1 - CALCULUS OF URETER Status: Chronic (13) Hydroureter Code(s): N13.4 - HYDROURETER Status: Resolved - Plan cont BIPAP, O2 discuss with intesist, thoracentesis? change iv lasix to 80 q 12h urgent ECHO further comments post discussion with intesivist
--- NOTE | 2019-04-16 14:51 | CON ---
DATE OF CONSULTATION: 04/16/2019 SERVICE: Pulmonary Medicine. REASON FOR CONSULTATION: Pleural effusion. HISTORY OF PRESENT ILLNESS: The patient is an 88-year-old white male with past medical history significant for heart failure. He presented to the emergency department on 09 April 2019 with complaints of increasing difficulty breathing , in his sepsis profile. On the original chest x-ray, he had a small pleural effusion on the left. He has been in the in the hospital for several days getting appropriate IV antibiotics. That being said, it was recognized that he was somewhat volume overloaded. As such, he has been diuresed slowly through time. Despite becoming more volume negative, his left-sided pleural effusion has actually been growing. He was subsequently moved to the [facility]. He currently denies any fevers or chills. There has been no nausea, vomiting, or diarrhea. He has a history of requiring dialysis, but has subsequently stopped this recently. PAST MEDICAL HISTORY: 1. Chronic systolic heart failure. 2. Coronary artery disease. 3. Type 2 diabetes mellitus. 4. Dyslipidemia. 5. Hypertension. 6. Parkinson disease. 7. CLL. 8. History of atrial fibrillation. PAST SURGICAL HISTORY: 1. Eye surgery. 2. Cholecystectomy. 3. Heart surgery as an . 4. Tonsillectomy. 5. AICD placement. 6. Extraction of stone. SOCIAL HISTORY: He has a greater than 50 pack-year history of smoking, but quit remotely. Denies any alcohol or illicit drugs. FAMILY HISTORY: Noncontributory. ALLERGIES: NO KNOWN DRUG ALLERGIES. MEDICATIONS: List of inpatient medications was reviewed. No specific updates were made at this time. REVIEW OF SYSTEMS: General, head, ears, eyes, nose, throat, cardiovascular, respiratory, GI, , musculoskeletal, neurologic, and skin is negative except as mentioned in the HPI. PHYSICAL EXAMINATION: VITAL SIGNS: Afebrile, pulse 67, respirations 14, and saturation 99% on room air. GENERAL: The patient is awake and alert, in no apparent distress. LUNGS: Decreased air entry in the left base with dullness to percussion. There is no prolonged expiratory phase or wheezing. Right side has crackles. HEART: Normal rate and regular. ABDOMEN: Soft, nontender and nondistended. Bowel sounds are positive. MUSCULOSKELETAL: No cyanosis or clubbing. There is 1 to 2+ pitting in bilateral lower extremities. NEUROLOGIC: Grossly nonfocal. LABORATORY DATA: WBC 8.3, hemoglobin 8.8, platelets 288,000. PH 7.40, pCO2 61 corresponding to a saturation of 87% while wearing BiPAP. Basic metabolic profile is completely unremarkable. His creatinine is actually downtrending to 1.27. Liver function studies are unremarkable. BNP is up trending to 2500. Urinalysis is negative. 24 hour urine total is 1.087 L. His urine protein in that sample is 207, which corresponds to 2.3 g of protein per day. Yeast is growing in the urine. Outside of that, blood cultures x2 and C diff antigen and toxin are unremarkable. IMAGING STUDIES: 1. Chest x-ray demonstrates left yann opacification. There is also a right- sided pleural effusion present. 2. CT of the chest, abdomen, and pelvis demonstrates complete atelectasis of 3 segments of the right lower lobe, and the entirety of the left lower lobe. I do not see any obvious infiltrates. ASSESSMENT: 1. Acute hypoxic respiratory failure. 2. Pleural effusion, not otherwise specified. 3. Yeast growing in the urine. DISCUSSION AND PLAN: At this point, the patient came in with sepsis. He has cleared his inflammatory profile very well and antibiotics have subsequently been interrupted. Despite diuresing the patient, his left-sided pleural effusion has actually enlarged. As such, we will perform a diagnostic and therapeutic thoracentesis on the left to see if we can further identify what is happening in the space. Dr. Taveras will assume coverage in the morning as he has an established relationship with Mr. Rowland. He does have near nephrotic range proteinuria and if this fluid proves to be a transudate, this in combination with his heart failure may be causing this fluid to accumulate. Time will tell, however. 70 minutes have been devoted to this patient in various activities. I personally reviewed all imaging studies and laboratory data noted within this document. For fifty percent of this time, I was interacting with the patient at the bedside or coordinating care with the care team. For the remainder of the time I was immediately available to the patient in the hospital unit. Job ID: [id number] [facility]
[2019-04-16 16:11] LABS: Pleural Fluid, Protein 2.8 g/dL
[2019-04-16 16:29] LABS: RBC Count-Automated (BF) 25620 /cumm; WBC/Nucleated-Auto (BF) 812 uL
[2019-04-16] MEDS: Furosemide 100 MG/10 ML VIAL SLOW IVP SCH (16:45)
--- NOTE | 2019-04-16 16:45 | PRG ---
DATE OF SERVICE: 04/16/2019 SUBJECTIVE: The patient has been transferred to the [facility] and is on BiPAP. He had a thoracentesis. OBJECTIVE: GENERAL: He is sleeping at this time, did not respond to questions, did not follow commands. HEENT: His pupils are equal. LUNGS: Symmetric air entry with diminished breath sounds at the bases. HEART: S1 and S2. Regular rate. ABDOMEN: Not distended. EXTREMITIES: The edema in lower extremities is less. VITAL SIGNS: T-max 99.3, blood pressure 105/67, heart rate 95, O2 saturation 98% with a BiPAP mask. LABORATORY DATA: White cell count 8.3, hemoglobin 8.8, platelets 288, 66% neutrophils, 22% lymphocytes, pleural fluid with LDH 90, glucose 112, amylase 42, protein 2.8. The 24-hour urine, protein was 1 g and 87 mg previous; albumin was 2.5 in the serum. ASSESSMENT AND DISCUSSION: Ischemic cardiomyopathy, AICD, anasarca, worsening chronic renal insufficiency, hypoalbuminemia with evidence of nephrotic syndrome, chronic lymphocytic leukemia, chronic lymphocytic leukemia can be sometimes associated with proteinuria either due to membranous nephropathy or due to renal vein thrombosis. This may be contributing to the patient's anasarca. Job ID: [id number]
--- NOTE | 2019-04-16 17:40 | OP ---
DATE OF PROCEDURE: 04/16/2019 SERVICE: Pulmonary Medicine. PROCEDURE PERFORMED: Left-sided pleural drainage with catheter insertion with ultrasound guidance. CONSENT: The risks and benefits of the procedure were discussed with the patient and his family. All questions were answered and alternative options explained. STAFF PHYSICIAN: Torin Carballo MD MEDICATIONS: Lidocaine 1% without epinephrine, 10 mL. PREOPERATIVE DIAGNOSES: 1. Acute hypoxic respiratory failure. 2. Pleural effusion, not otherwise specified. POSTPROCEDURE DIAGNOSES: 1. Acute hypoxic respiratory failure. 2. Pleural effusion, not otherwise specified. DESCRIPTION OF PROCEDURE: A time-out was performed by the procedure team and the patient. The patient was positively identified using name and date of . The procedure site was marked. Vital sign monitoring was accomplished by noninvasive hemodynamic monitoring, pulse oximetry, and telemetry. In the seated position, the left posterior hemothorax was examined using ultrasound probe. The diaphragm and pleural fluid were easily identified. The skin was prepped and draped in sterile fashion and anesthetized with 1% lidocaine without epinephrine. A finder needle was inserted in the pleural space with return of cloudy megan fluid. A pleural drainage catheter was inserted in the same location, and a total of 1300 mL was withdrawn by syringe pump technique. A sample was sent for analysis. Evacuation of fluid was terminated because of the fluid stopped coming abruptly. At the end of the procedure, estimated pleural pressures, measured by manometry, was -16 cm of pleural fluid. The intact catheter was withdrawn on exhalation and a sterile dressing was applied. The patient had stable vitals throughout the entire procedure. ESTIMATED BLOOD LOSS: 2 mL. COMPLICATIONS: Transient hypoxemia that resolved spontaneously. Job ID: [id number]
[2019-04-16 17:44] LABS: BF Color Red; Body Fluid Source Pleural Fluid; Clarity Cloudy/Turbid (Clear); Tube # 2
[2019-04-16 18:19] LABS: BF Segmented Neutrophils 13 %; Cell Count Non Hematic 33 %; Lymphocytes 54 %
[2019-04-16] MEDS: Melatonin 3 MG TAB PO SCH (20:33)
[2019-04-16] MEDS: Atorvastatin Calcium 20 MG TAB PO SCH (20:33)
[2019-04-17] MEDS: Furosemide 100 MG/10 ML VIAL SLOW IVP SCH ×2 (05:39→14:52)
[2019-04-17 05:40] LABS: BUN (Urea Nitrogen) 29 mg/dL (8.4-25.7); Calc. Creatinine Clearance 59 mL/min (70-130); Calcium 8.7 mg/dL (7.8-10.44); Estimated GFR-MDRD 48; Glucose 93 mg/dL (83-110)
[2019-04-17 05:49] LABS: Anion Gap 11 mmol/L (10-20); Carbon Dioxide 36 mmol/L (23-31); Chloride 99 mmol/L (98-107); Potassium 3.3 mmol/L (3.5-5.1); Sodium 143 mmol/L (136-145)
--- NOTE | 2019-04-17 07:36 | PRG ---
DATE OF SERVICE: 04/17/2019 SUBJECTIVE: The patient resting, at bedside, updated regarding clinical course and findings of recent echocardiogram. OBJECTIVE: VITAL SIGNS: Stable. Temperature, he is 97.4, blood pressure 93/ 54 to 106/71, 92% on 2 L. ABDOMEN: Morbidly obese, protuberant. : Demonstrating megan yellow tinged urine. ABDOMEN: Demonstrates no rigidity, no rebound. Creatinine today is 1.4. IMPRESSION AND PLAN: 1. Mr. Rowland is an 88-year-old male with history of congestive heart failure, atrial fibrillation, chronic lymphocytic leukemia, prostate cancer in remission. 2. 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 3. Status post right ureteroscopy, laser lithotripsy of multiple right impacted ureteral calculi on March 24. 4. History of subcapsular hematoma, calyceal rupture due to high-grade right ureteral obstruction. 5. Left pleural effusion status post thoracocentesis. His cysto stent pull was canceled yesterday due to cardiopulmonary decompensation. will continue to follow along, informed , pending his clinical course, will defer stent removal, tentative stent pull date next Sunday. Prognosis remains guarded and poor. Job ID: [id number] MTDD
[2019-04-17] MEDS: Finasteride 5 MG TAB PO SCH (09:27)
[2019-04-17] MEDS: Dutasteride 0.5 MG CAP PO SCH (09:28)
[2019-04-17] MEDS: Carvedilol 3.125 MG TAB PO SCH (09:28)
[2019-04-17] MEDS: Folic Acid 1 MG TAB PO SCH (09:28)
[2019-04-17] MEDS: Allopurinol 300 MG TAB PO SCH (09:28)
[2019-04-17] MEDS: Gabapentin 100 MG CAP PO SCH ×3 (09:28→20:11)
[2019-04-17] MEDS: Tamsulosin HCl 0.4 MG CAP PO SCH (09:28)
--- NOTE | 2019-04-17 09:46 | PRG ---
DATE OF SERVICE: 04/17/2019 SUBJECTIVE: This patient had a thoracentesis performed yesterday with large amount of pleural fluid removed by Dr. Carballo. The pleural fluid was transudative in nature. OBJECTIVE: VITAL SIGNS: His temperature is 97.4, pulse 93, blood pressure 110/58, O2 sats running in the low 90s. He was on BiPAP overnight. GENERAL: He looks chronically ill. HEENT: Unremarkable. NECK: No JVD. LUNGS: Diminished breath sounds in the bases. CARDIAC: S1 and S2. Irregularly irregular. ABDOMEN: Soft. EXTREMITIES: Edematous. LABORATORY DATA: Sodium 143, potassium 3.3, BUN 29, creatinine 1.4, and glucose 93. ASSESSMENT: 1. Acute on chronic respiratory failure secondary to fluid overload. 2. Cardiomyopathy with ejection fraction of 25% to 30%. 3. Nephrotic range proteinuria. PLAN: His prognosis is extremely poor. I think that pleural effusion is likely to reaccumulate at some point. His best chance is to continue diuresis and to improve his nutritional state and perhaps address the proteinuria. Ultimately, the fluid overload may have to be managed by dialysis again. Job ID: [id number]
--- NOTE | 2019-04-17 10:42 | PDOC.HOSPP ---
- Subjective Encounter Date: 04/17/19 Encounter Time: 10:41 - Objective Vital Signs & Weight: Vital Signs (12 hours) Temp Pulse Ox 04/17/19 03:19 97.4 F L 04/17/19 01:22 97 04/16/19 23:15 98.0 F Weight Admit Weight 238 lb Weight 236 lb Most Recent Monitor Data Heart Rate from ECG 93 NIBP 110/58 NIBP BP-Mean 75 Respiration from ECG 19 SpO2 90 I&O: 04/16/19 04/17/19 04/18/19 06:59 06:59 06:59 Intake Total 980 1600 Output Total 2680 2900 Balance -1700 -1300 Result Diagrams: 04/15/19 22:17 04/17/19 04:56 Additional Labs: Accuchecks 04/17/19 04/16/19 04/16/19 05:20 20:52 16:57 POC Glucose 96 125 H 118 H 04/16/19 10:57 POC Glucose 92 Radiology Reviewed by me: No (echo LVEF 25-30 %) Hospitalist ROS - Medication Medications: Active Medications Generic Name Dose Route Start Last Admin Trade Name Freq PRN Reason Stop Dose Admin Albuterol/Ipratropium 3 ml 04/11/19 06:17 04/16/19 18:11 Duoneb NEB 3 ml [id number] PRN Administration SOB &/or Wheezing Allopurinol 300 mg 04/14/19 09:00 04/17/19 09:28 Zyloprim PO 300 mg DAILY BERNARDINO Administration Atorvastatin Calcium 20 mg 04/14/19 21:00 04/16/19 20:33 Lipitor PO 20 mg HS BERNARDINO Administration Carvedilol 3.125 mg 04/14/19 09:00 04/17/19 09:28 Coreg PO 3.125 mg DAILY BERNARDINO Administration Donepezil HCl 5 mg 04/14/19 21:00 04/14/19 21:53 Aricept PO 5 mg HS BERNARDINO Administration Dutasteride 0.5 mg 04/11/19 09:00 04/17/19 09:28 Avodart PO 0.5 mg DAILY BERNARDINO Administration Finasteride 5 mg 04/14/19 09:00 04/17/19 09:27 Proscar PO 5 mg DAILY BERNARDINO Administration Folic Acid 1 mg 04/14/19 09:00 04/17/19 09:28 Folvite PO 1 mg DAILY BERNARDINO Administration Furosemide 80 mg 04/16/19 14:00 04/17/19 05:39 Lasix SLOW IVP 80 mg 0600,1400 BERNARDINO Administration Gabapentin 100 mg 04/11/19 09:00 04/17/19 09:28 Neurontin PO 100 mg TID BERNARDINO Administration Melatonin 6 mg 04/11/19 21:00 04/16/19 20:33 Melatonin PO 6 mg HS BERNARDINO Administration Sertraline HCl 100 mg 04/11/19 09:00 04/17/19 09:28 Zoloft PO 100 mg BID BERNARDINO Administration Sodium Chloride 10 ml 04/10/19 09:00 04/17/19 09:29 Flush - Normal Saline IVF 10 ml Q12HR BERNARDINO Administration Tamsulosin HCl 0.4 mg 04/11/19 09:00 04/17/19 09:28 Flomax PO 0.4 mg DAILY BERNARDINO Administration - Exam Neck: no JVD Heart: RRR Respiratory - other findings: dull L base, good BS anteior Gastrointestinal: soft, normal bowel sounds Extremities: 1+ LE edema Hosp A/P (1) Pleural effusion Code(s): J90 - PLEURAL EFFUSION, NOT ELSEWHERE CLASSIFIED Status: Acute (2) Acute on chronic systolic (congestive) heart failure Code(s): I50.23 - ACUTE ON CHRONIC SYSTOLIC (CONGESTIVE) HEART FAILURE Status : Acute (3) Acute respiratory failure with hypoxemia Code(s): J96.01 - ACUTE RESPIRATORY FAILURE WITH HYPOXIA Status: Acute (4) UTI (urinary tract infection) Status: Ruled-out Qualifiers: Indwelling urinary catheter type: unspecified Encounter type: sequela (5) Coronary artery disease Code(s): I25.10 - ATHSCL HEART DISEASE OF [place] CORONARY ARTERY W/O ANG PCTRS Status: Chronic Qualifiers: Coronary Disease-Associated Artery/Lesion type: grindstone artery [place] vs. transplanted heart: grindstone heart Associated angina: without angina Qualified Code(s): I25.10 - Atherosclerotic heart disease of [place] coronary artery without angina pectoris (6) DM type 2 (diabetes mellitus, type 2) Status: Chronic Qualifiers: Diabetes mellitus director of retail analytics insulin use: without snf use Diabetes mellitus complication status: with kidney complications Diabetes mellitus complication detail: with chronic kidney disease Chronic kidney disease stage : stage 3 (moderate) Qualified Code(s): E11.22 - Type 2 diabetes mellitus with diabetic chronic kidney disease; N18.3 - Chronic kidney disease, stage 3 ( moderate) (7) Dyslipidemia Code(s): E78.5 - HYPERLIPIDEMIA, UNSPECIFIED Status: Chronic (8) HTN (hypertension) Code(s): I10 - ESSENTIAL (PRIMARY) HYPERTENSION Status: Chronic Qualifiers: Hypertension type: essential hypertension Qualified Code(s): I10 - Essential (primary) hypertension (9) Horseshoe kidney Code(s): Q63.1 - LOBULATED, FUSED AND HORSESHOE KIDNEY Status: Chronic (10) Parkinson disease Code(s): G20 - PARKINSON'S DISEASE Status: Chronic (11) Ureterolithiasis Code(s): N20.1 - CALCULUS OF URETER Status: Chronic - Plan cont BIPAP, O2 post thoracentrsis-transudate iv lasix to 80 q 12h cont b-mike long discussion with family still needs ureteral stent out
--- NOTE | 2019-04-17 12:23 | CON ---
DATE OF CONSULTATION: REASON FOR CONSULTATION: Elevated creatinine. HISTORY OF PRESENT ILLNESS: This is a very pleasant 88-year-old gentleman, who presented to the hospital with a baseline creatinine of less than 1.3, which has increased to 1.4. The patient was noted to have cardiomyopathy with congestive heart failure as well as proteinuria. The patient denies any numbness, tingling, or weakness. The patient has a 1000 mg of protein in his urine for 24 hours. The patient has an EF of 25%. PAST MEDICAL HISTORY: Significant for asthma, cardiomyopathy, hyperlipidemia, diabetes mellitus, Parkinson's, prostate cancer, CKD, history of lymphocytic leukemia, history of cholecystectomy, tonsillectomy, defibrillator, retinal surgery, cystoscopy, history of renal stents, history of lithotripsy, and multiple kidney stone. REVIEW OF SYSTEMS: A 15-point review of system was performed and was negative except for positives noted above. GENERAL: HEAD: NECK: No swelling or lumps. NOSE: No epistaxis or discharge. EYES: No diplopia or pain. RESPIRATORY: CARDIOVASCULAR: GASTROINTESTINAL: /DRAIN TECHNICIAN: MUSCULOSKELETAL: No joint pain. NEUROPSYCHIATIC SYSTEMS: No suicidal ideation. No ideation. SKIN: Denies any rash or ulcer. CONSTITUTIONAL: No fever or chills. HOSPITAL MEDICATIONS: List reviewed. ALLERGIES: REVIEWED. HOME MEDICATIONS: List reviewed. PHYSICAL EXAMINATION: CONSTITUTIONAL: The patient is awake and alert. VITAL SIGNS: Afebrile, pulse was 75, breathing 16, and blood pressure 118/57. GENERAL APPEARANCE AND MENTAL STATUS: Fair. HEAD/NECK: Normocephalic. Atraumatic. EYES: EOMI. No deformity. EARS: Clear. No ulcers. NOSE: Intact. No lesions. MOUTH: Clear. No discharge. THROAT: Clear. No exudate. LUNGS: Clear. No crackles. CARDIAC: S1, S2. No rub. ABDOMEN: Benign. Bowel sounds positive. GENITALIA/RECTUM: Benavides absent. BACK/EXTREMITIES: Edema 0+. NEUROLOGICAL: Alert and motor intact. SKIN: LYMPHATICS: LABORATORY DATA: Labs show creatinine was 1.4 and potassium 3.3. ASSESSMENT AND PLAN: Acute kidney injury, chronic kidney disease stage 3, most likely due to decreased effective arterial blood volume, continue diuresis. Congestive heart failure, stable. Anemia, stable. Hypokalemia, recommend potassium replacement. Anemia, would recommend Epogen therapy 20,000 units every week if okay with Urology. Medications based on GFR appropriate. Job ID: [id number]
--- NOTE | 2019-04-17 13:24 | RAD ---
XR Chest 1 View Portable HISTORY: Pleural effusion COMPARISON: 04/15/2019 FINDINGS: The heart size is stable. The aorta is tortuous. Left-sided AICD remains in place. Bilatera l pleural effusions are seen with adjacent atelectatic changes. Interval reduction is seen in the size of the left pleural effusion. No pneumothoraces are seen.
[2019-04-17] MEDS: Melatonin 3 MG TAB PO SCH (20:11)
[2019-04-17] MEDS: Donepezil HCl 5 MG TAB PO SCH (20:11)
[2019-04-17] MEDS: Atorvastatin Calcium 20 MG TAB PO SCH (20:11)
[2019-04-18] MEDS: Furosemide 100 MG/10 ML VIAL SLOW IVP SCH ×2 (05:22→15:06)
--- NOTE | 2019-04-18 07:54 | PRG ---
DATE OF SERVICE: 04/18/2019 SUBJECTIVE: The patient is alert and awake, feels fatigued; however, feels better. OBJECTIVE: VITAL SIGNS: Stable. He is afebrile. Urine output 2650. ABDOMEN: Morbidly obese, protuberant. Benavides catheter adequately secured with clear dilute urine. LABORATORY DATA: White count is 8.3, hemoglobin 9.8, and platelet 288. Fluid from thoracocentesis is pending thus far. IMPRESSION AND PLAN: 1. Mr. Rowland is a pleasant 88-year-old male, previously followed by Dr. Mcknight with history of horseshoe kidney with significant bilateral stone burden obstructing right ureteral calculi. 2. History of congestive heart failure, atrial fibrillation, chronic lymphocytic leukemia, and prostate cancer in remission. 3. Status post right ureteroscopy, laser lithotripsy of multiple right impacted ureteral calculi March 24, 2019. 4. History of subcapsular hematoma, calyceal rupture due to high-grade right ureteral obstruction. 5. New onset left pleural effusion, of unclear etiology, status post thoracocentesis. Fluid analysis culture pending thus far. The patient's elective cysto stent pull was canceled with this Sunday due to pulmonary compromise. I have electively added the patient for cysto stent pull this Sunday on April 23 pending his clinical course. The patient remains in guarded, poor condition due to multiple comorbidities. I do not anticipate acute urologic events over the weekend, Dr. Gaitan covering me this weekend. Job ID: [id number] MTDD
[2019-04-18] MEDS: Finasteride 5 MG TAB PO SCH (09:14)
[2019-04-18] MEDS: Gabapentin 100 MG CAP PO SCH ×3 (09:14→21:18)
[2019-04-18] MEDS: Folic Acid 1 MG TAB PO SCH (09:14)
[2019-04-18] MEDS: Tamsulosin HCl 0.4 MG CAP PO SCH (09:14)
[2019-04-18] MEDS: Dutasteride 0.5 MG CAP PO SCH (09:14)
[2019-04-18] MEDS: Carvedilol 3.125 MG TAB PO SCH (09:15)
[2019-04-18] MEDS: Allopurinol 300 MG TAB PO SCH (09:15)
[2019-04-18 09:43] LABS: Anion Gap 14 mmol/L (10-20); BUN (Urea Nitrogen) 34 mg/dL (8.4-25.7); Calc. Creatinine Clearance 55 mL/min (70-130); Calcium 8.5 mg/dL (7.8-10.44); Carbon Dioxide 35 mmol/L (23-31); Chloride 99 mmol/L (98-107); Estimated GFR-MDRD 47; Glucose 149 mg/dL (83-110); Potassium 3.7 mmol/L (3.5-5.1); Sodium 144 mmol/L (136-145)
--- NOTE | 2019-04-18 09:45 | PRG ---
DATE OF SERVICE: 04/18/2019 SUBJECTIVE: The patient is awake this morning, which is different than yesterday. He appears calm and in no distress. OBJECTIVE: VITAL SIGNS: On exam, temperature 97.4, pulse 94, blood pressure 123/66, and O2 saturation 95%. Intake for 24 hours 1700, output 2650. Weight 229 pounds. HEENT: Unremarkable. NECK: No adenopathy or JVD. LUNGS: Clear, on the right. He has diminished breath sounds on the left. CARDIAC: S1 and S2. Regular. ABDOMEN: Soft. EXTREMITIES: Edematous. LABORATORY DATA: None was done today. ASSESSMENT: 1. This patient has end-stage cardiomyopathy with congestive heart failure and a recurrent transudative left pleural effusion. 2. Nephrotic range proteinuria. 3. Chronic respiratory failure. PLAN: His prognosis is quite poor. I fully support the other physicians on the case, who have told the family that the patient's care needs to be steered in a more palliative direction. Apparently, there are some issues with the patient's son understanding the severity of the situation and the fact that medical therapy is not going to help the situation. For the time being, he is stable from Pulmonary standpoint, although I do not expect that they last long. We will continue to follow. Job ID: [id number]
--- NOTE | 2019-04-18 15:09 | PRG ---
DATE OF SERVICE: 04/18/2019 SUBJECTIVE: An 88-year-old gentleman, being seen for acute kidney injury. The patient denied any nausea, vomiting, or chest pain. OBJECTIVE: GENERAL: The patient is awake and alert. VITAL SIGNS: Afebrile, pulse 85, breathing 16, blood pressure was 130/70. GENERAL APPEARANCE AND MENTAL STATUS: Fair. HEAD/NECK: Normocephalic. Atraumatic. EYES: EOMI. No deformity. EARS: Clear. No ulcers. NOSE: Intact. No lesions. MOUTH: Clear. No discharge. THROAT: Clear. No exudate. LUNGS: Clear. No crackles. CARDIAC: S1, S2. No rub. ABDOMEN: Benign. Bowel sounds positive. GENITALIA/RECTUM: Benavides absent. BACK/EXTREMITIES: Edema 0+. NEUROLOGICAL: Alert and motor intact. SKIN: LYMPHATICS: LABORATORY DATA: Reviewed. ASSESSMENT AND PLAN: 1. Chronic kidney disease, stage 3, stable. 2. Hypertension, stable. 3. Acute kidney injury, stable. No indication for dialysis. I will sign off on this patient. Please reconsult as needed. Job ID: [id number]
--- NOTE | 2019-04-18 18:23 | PDOC.HOSPP ---
- Subjective Subjective: Seen and examined. Patient resting comfortably this a.m., when awoken he denies pain. Breathing well on low-flow nasal cannula. No family available at bedside this a.m. Short and long-term prognosis for this patient is poor. - Objective Vital Signs & Weight: Vital Signs (12 hours) Temp Pulse Pulse BP BP Pulse Ox Pulse Ox 04/18/19 15:38 97.8 F 04/18/19 12:05 89 87 110/59 L 103/53 L 95 04/18/19 11:08 97.8 F 04/18/19 08:00 98 04/18/19 07:30 97.4 F L Pulse Ox 04/18/19 15:38 04/18/19 12:05 95 04/18/19 11:08 04/18/19 08:00 04/18/19 07:30 Weight Admit Weight 238 lb Weight 229 lb 4.8 oz Most Recent Monitor Data Heart Rate from ECG 67 NIBP 100/43 NIBP BP-Mean 62 Respiration from ECG 20 SpO2 94 I&O: 04/17/19 04/18/19 04/19/19 06:59 06:59 06:59 Intake Total 1600 1700 Output Total 2900 2650 Balance -1300 -950 Result Diagrams: 04/15/19 22:17 04/18/19 09:09 Additional Labs: Accuchecks 04/18/19 04/18/19 04/18/19 16:41 10:59 05:59 POC Glucose 147 H 146 H 109 04/17/19 20:11 POC Glucose 117 H Radiology Reviewed by me: Yes (CXR) Hospitalist ROS - Review of Systems All other systems reviewed; all pertinent +/- noted in HPI/Subj - Medication Medications: Active Medications Generic Name Dose Route Start Last Admin Trade Name Freq PRN Reason Stop Dose Admin Albuterol/Ipratropium 3 ml 04/11/19 06:17 04/16/19 18:11 Duoneb NEB 3 ml [id number] PRN Administration SOB &/or Wheezing Allopurinol 300 mg 04/14/19 09:00 04/18/19 09:15 Zyloprim PO 300 mg DAILY BERNARDINO Administration Atorvastatin Calcium 20 mg 04/14/19 21:00 04/17/19 20:11 Lipitor PO 20 mg HS BERNARDINO Administration Carvedilol 3.125 mg 04/14/19 09:00 04/18/19 09:15 Coreg PO 3.125 mg DAILY BERNARDINO Administration Donepezil HCl 5 mg 04/14/19 21:00 04/17/19 20:11 Aricept PO 5 mg HS BERNARDINO Administration Dutasteride 0.5 mg 04/11/19 09:00 04/18/19 09:14 Avodart PO 0.5 mg DAILY BERNARDINO Administration Finasteride 5 mg 04/14/19 09:00 04/18/19 09:14 Proscar PO 5 mg DAILY BERNARDINO Administration Folic Acid 1 mg 04/14/19 09:00 04/18/19 09:14 Folvite PO 1 mg DAILY BERNARDINO Administration Furosemide 80 mg 04/16/19 14:00 04/18/19 15:06 Lasix SLOW IVP 80 mg 0600,1400 BERNARDINO Administration Gabapentin 100 mg 04/11/19 09:00 04/18/19 15:07 Neurontin PO 100 mg TID BERNARDINO Administration Melatonin 6 mg 04/11/19 21:00 04/17/19 20:11 Melatonin PO 6 mg HS BERNARDINO Administration Sertraline HCl 100 mg 04/11/19 09:00 04/18/19 09:15 Zoloft PO 100 mg BID BERNARDINO Administration Sodium Chloride 10 ml 04/10/19 09:00 04/18/19 09:15 Flush - Normal Saline IVF 10 ml Q12HR BERNARDINO Administration Tamsulosin HCl 0.4 mg 04/11/19 09:00 04/18/19 09:14 Flomax PO 0.4 mg DAILY BERNARDINO Administration - Exam General Appearance: ill appearing Eye: PERRL ENT: normocephalic atraumatic, moist mucosa Neck: supple, symmetric, no lymphadenopathy Heart: no murmur, no gallops, no rubs Respiratory: CTAB, no wheezes, no rales, no ronchi Gastrointestinal: soft, non-tender, non-distended, no guarding, no rigidity Extremities: no edema Skin: no lesions, no rashes Neurological: cranial nerve grossly intact, no focal deficits Musculoskeletal: generalized weakness Psychiatric: flat affect, somnolent Hosp A/P (1) ESRD (end stage renal disease) on dialysis Code(s): N18.6 - END STAGE RENAL DISEASE; Z99.2 - DEPENDENCE ON RENAL DIALYSIS Status: Chronic (2) Acute on chronic systolic (congestive) heart failure Code(s): I50.23 - ACUTE ON CHRONIC SYSTOLIC (CONGESTIVE) HEART FAILURE Status : Acute (3) Acute respiratory failure with hypoxemia Code(s): J96.01 - ACUTE RESPIRATORY FAILURE WITH HYPOXIA Status: Acute (4) Pleural effusion Code(s): J90 - PLEURAL EFFUSION, NOT ELSEWHERE CLASSIFIED Status: Acute (5) Pneumonia Code(s): J18.9 - PNEUMONIA, UNSPECIFIED ORGANISM Status: Resolved Qualifiers: Lung location: unspecified part of lung (6) UTI (urinary tract infection) Status: Ruled-out Qualifiers: Indwelling urinary catheter type: unspecified Encounter type: sequela (7) Anemia in CKD (chronic kidney disease) Code(s): N18.9 - CHRONIC KIDNEY DISEASE, UNSPECIFIED; D63.1 - ANEMIA IN CHRONIC KIDNEY DISEASE Status: Acute (8) CLL (chronic lymphocytic leukemia) Code(s): C91.90 - LYMPHOID LEUKEMIA, UNSPECIFIED NOT HAVING ACHIEVED REMISSION Status: Chronic (9) Coronary artery disease Code(s): I25.10 - ATHSCL HEART DISEASE OF [place] CORONARY ARTERY W/O ANG PCTRS Status: Chronic Qualifiers: Coronary Disease-Associated Artery/Lesion type: [place] artery [place] vs. transplanted heart: [place] heart Associated angina: without angina Qualified Code(s): I25.10 - Atherosclerotic heart disease of [place] coronary artery without angina pectoris (10) DM type 2 (diabetes mellitus, type 2) Status: Chronic Qualifiers: Diabetes mellitus jail insulin use: without jail use Diabetes mellitus complication status: with kidney complications Diabetes mellitus complication detail: with chronic kidney disease Chronic kidney disease stage : stage 3 (moderate) Qualified Code(s): E11.22 - Type 2 diabetes mellitus with diabetic chronic kidney disease; N18.3 - Chronic kidney disease, stage 3 ( moderate) (11) Dyslipidemia Code(s): E78.5 - HYPERLIPIDEMIA, UNSPECIFIED Status: Chronic (12) H/O prostate cancer Code(s): Z85.46 - PERSONAL HISTORY OF MALIGNANT NEOPLASM OF PROSTATE Status: Chronic (13) Horseshoe kidney Code(s): Q63.1 - LOBULATED, FUSED AND HORSESHOE KIDNEY Status: Chronic (14) Ischemic cardiomyopathy Code(s): I25.5 - ISCHEMIC CARDIOMYOPATHY Status: Chronic (15) Nephrolithiasis Status: Chronic (16) Parkinson disease Code(s): G20 - PARKINSON'S DISEASE Status: Chronic - Plan Plan: IMCU pulmonology consultation, recommendations appreciated nephrology consultation, recommendations appreciated palliative care consultation, recommendations appreciated supplemental oxygen as needed to maintain O2 saturation greater than 88% BiPAP therapy as needed CKD required HD in the past, HD as needed per nephrology continue home medications as able Cardiomyopathy regimen as able Long and short term prognosis for meaningul recovery is poor
[2019-04-18] MEDS: Melatonin 3 MG TAB PO SCH (21:18)
[2019-04-18] MEDS: Donepezil HCl 5 MG TAB PO SCH (21:18)
[2019-04-18] MEDS: Atorvastatin Calcium 20 MG TAB PO SCH (21:18)
[2019-04-19] MEDS: Furosemide 100 MG/10 ML VIAL SLOW IVP SCH ×2 (06:22→14:25)
[2019-04-19] MEDS: Finasteride 5 MG TAB PO SCH (09:33)
[2019-04-19] MEDS: Gabapentin 100 MG CAP PO SCH ×3 (09:33→21:45)
[2019-04-19] MEDS: Tamsulosin HCl 0.4 MG CAP PO SCH (09:33)
[2019-04-19] MEDS: Dutasteride 0.5 MG CAP PO SCH (09:33)
[2019-04-19] MEDS: Folic Acid 1 MG TAB PO SCH (09:33)
[2019-04-19] MEDS: Allopurinol 300 MG TAB PO SCH (09:33)
[2019-04-19] MEDS: Carvedilol 3.125 MG TAB PO SCH (09:34)
--- NOTE | 2019-04-19 15:16 | PDOC.HOSPP ---
- Subjective Subjective: Seen and examined. Clinically improving. More alert and awake. Answering questions appropriately to his baseline. Breathing more comfortably on low-flow nasal cannula. - Objective Vital Signs & Weight: Vital Signs (12 hours) Temp Pulse Pulse BP BP Pulse Ox Pulse Ox 04/19/19 11:33 72 70 102/40 L 104/46 L 97 04/19/19 10:45 98.6 F 04/19/19 08:00 94 L 04/19/19 07:30 98.5 F 04/19/19 03:42 97.7 F Pulse Ox 04/19/19 11:33 97 04/19/19 10:45 04/19/19 08:00 04/19/19 07:30 04/19/19 03:42 Weight Admit Weight 238 lb Weight 231 lb 11.2 oz Most Recent Monitor Data Heart Rate from ECG 87 NIBP 105/50 NIBP BP-Mean 68 Respiration from ECG 20 SpO2 98 I&O: 04/18/19 04/19/19 04/20/19 06:59 06:59 06:59 Intake Total 1700 1450 Output Total 2650 2550 Balance -950 -1100 Result Diagrams: 04/15/19 22:17 04/18/19 09:09 Additional Labs: Accuchecks 04/19/19 04/19/19 04/18/19 10:15 05:42 21:19 POC Glucose 193 H 120 H 158 H 04/18/19 16:41 POC Glucose 147 H Hospitalist ROS - Review of Systems All other systems reviewed; all pertinent +/- noted in HPI/Subj - Medication Medications: Active Medications Generic Name Dose Route Start Last Admin Trade Name Freq PRN Reason Stop Dose Admin Albuterol/Ipratropium 3 ml 04/11/19 06:17 04/16/19 18:11 Duoneb NEB 3 ml [id number] PRN Administration SOB &/or Wheezing Allopurinol 300 mg 04/14/19 09:00 04/19/19 09:33 Zyloprim PO 300 mg DAILY BERNARDINO Administration Atorvastatin Calcium 20 mg 04/14/19 21:00 04/18/19 21:18 Lipitor PO 20 mg HS BERNARDINO Administration Carvedilol 3.125 mg 04/14/19 09:00 04/19/19 09:34 Coreg PO 3.125 mg DAILY BERNARDINO Administration Donepezil HCl 5 mg 04/14/19 21:00 04/18/19 21:18 Aricept PO 5 mg HS BERNARDINO Administration Dutasteride 0.5 mg 04/11/19 09:00 04/19/19 09:33 Avodart PO 0.5 mg DAILY BERNARDINO Administration Finasteride 5 mg 04/14/19 09:00 04/19/19 09:33 Proscar PO 5 mg DAILY BERNARDINO Administration Folic Acid 1 mg 04/14/19 09:00 04/19/19 09:33 Folvite PO 1 mg DAILY BERNARDINO Administration Furosemide 80 mg 04/16/19 14:00 04/19/19 14:25 Lasix SLOW IVP 80 mg 0600,1400 BERNARDINO Administration Gabapentin 100 mg 04/11/19 09:00 04/19/19 14:25 Neurontin PO 100 mg TID BERNARDINO Administration Melatonin 6 mg 04/11/19 21:00 04/18/19 21:18 Melatonin PO 6 mg HS BERNARDINO Administration Sertraline HCl 100 mg 04/11/19 09:00 04/19/19 09:33 Zoloft PO 100 mg BID BERNARDINO Administration Sodium Chloride 10 ml 04/10/19 09:00 04/19/19 09:34 Flush - Normal Saline IVF 10 ml Q12HR BERNARDINO Administration Tamsulosin HCl 0.4 mg 04/11/19 09:00 04/19/19 09:33 Flomax PO 0.4 mg DAILY BERNARDINO Administration - Exam General Appearance: NAD, awake alert Eye: PERRL ENT: normocephalic atraumatic, moist mucosa Neck: supple, no lymphadenopathy Heart: no murmur, no gallops, no rubs Respiratory: no rales, no ronchi, wheezes (Few scattered wheezing. Deminished breath sounds lower lung [place].) Hosp A/P (1) ESRD (end stage renal disease) on dialysis Code(s): N18.6 - END STAGE RENAL DISEASE; Z99.2 - DEPENDENCE ON RENAL DIALYSIS Status: Chronic (2) Acute on chronic systolic (congestive) heart failure Code(s): I50.23 - ACUTE ON CHRONIC SYSTOLIC (CONGESTIVE) HEART FAILURE Status : Acute (3) Acute respiratory failure with hypoxemia Code(s): J96.01 - ACUTE RESPIRATORY FAILURE WITH HYPOXIA Status: Acute (4) Pleural effusion Code(s): J90 - PLEURAL EFFUSION, NOT ELSEWHERE CLASSIFIED Status: Acute (5) Pneumonia Code(s): J18.9 - PNEUMONIA, UNSPECIFIED ORGANISM Status: Resolved Qualifiers: Lung location: unspecified part of lung (6) UTI (urinary tract infection) Status: Ruled-out Qualifiers: Indwelling urinary catheter type: unspecified Encounter type: sequela (7) Anemia in CKD (chronic kidney disease) Code(s): N18.9 - CHRONIC KIDNEY DISEASE, UNSPECIFIED; D63.1 - ANEMIA IN CHRONIC KIDNEY DISEASE Status: Acute (8) CLL (chronic lymphocytic leukemia) Code(s): C91.90 - LYMPHOID LEUKEMIA, UNSPECIFIED NOT HAVING ACHIEVED REMISSION Status: Chronic (9) Coronary artery disease Code(s): I25.10 - ATHSCL HEART DISEASE OF [place] CORONARY ARTERY W/O ANG PCTRS Status: Chronic Qualifiers: Coronary Disease-Associated Artery/Lesion type: [place] artery [place] vs. transplanted heart: [place] heart Associated angina: without angina Qualified Code(s): I25.10 - Atherosclerotic heart disease of [place] coronary artery without angina pectoris (10) DM type 2 (diabetes mellitus, type 2) Status: Chronic Qualifiers: Diabetes mellitus mcc insulin use: without long goods drier use Diabetes mellitus complication status: with kidney complications Diabetes mellitus complication detail: with chronic kidney disease Chronic kidney disease stage : stage 3 (moderate) Qualified Code(s): E11.22 - Type 2 diabetes mellitus with diabetic chronic kidney disease; N18.3 - Chronic kidney disease, stage 3 ( moderate) (11) Dyslipidemia Code(s): E78.5 - HYPERLIPIDEMIA, UNSPECIFIED Status: Chronic (12) H/O prostate cancer Code(s): Z85.46 - PERSONAL HISTORY OF MALIGNANT NEOPLASM OF PROSTATE Status: Chronic (13) [place]orseshoe kidney Code(s): Q63.1 - LOBULATED, FUSED AND HORSESHOE KIDNEY Status: Chronic (14) Ischemic cardiomyopathy Code(s): I25.5 - ISCHEMIC CARDIOMYOPATHY Status: Chronic (15) Nephrolithiasis Status: Chronic (16) Parkinson disease Code(s): G20 - PARKINSON'S DISEASE Status: Chronic - Plan Plan: IMCU pulmonology consultation, recommendations appreciated nephrology consultation, recommendations appreciated palliative care consultation, recommendations appreciated supplemental oxygen as needed to maintain O2 saturation greater than 88% BiPAP therapy as needed CKD required HD in the past, HD as needed per nephrology continue home medications as able Cardiomyopathy regimen as able Long and short term prognosis for meaningul recovery is poor
--- NOTE | 2019-04-19 21:21 | PRG ---
DATE OF SERVICE: 04/19/2019 SUBJECTIVE: Mr. Rowland is in no distress. OBJECTIVE: VITAL SIGNS: Heart rate is in the 70s to 80s, blood pressure 108/62, respiratory rate is 18, oximetry is 100%. LUNGS: Clear. HEART: Regular rhythm. ABDOMEN: Soft. GENERAL: He is lying at 30 degrees, in no distress. LABORATORY DATA: Glucoses have been less than 200 today. IMPRESSION: 1. Advanced cardiomyopathy with congestive heart failure, recurrent transudative pleural effusion. 2. Massive proteinuria. 3. Chronic respiratory failure. 4. Advanced age with deconditioning. 5. Obesity. 6. Chronic hypoxemic respiratory failure with hypercarbia. 7. Anasarca. 8. Status post placement of defibrillator. 9. Chronic kidney disease. 10. Chronic lymphocytic leukemia. His prognosis is dismal short-term. There is no family at the bedside when I rounded on him. Job ID: [id number]
[2019-04-19] MEDS: Donepezil HCl 5 MG TAB PO SCH (21:45)
[2019-04-19] MEDS: Melatonin 3 MG TAB PO SCH (21:45)
[2019-04-19] MEDS: Atorvastatin Calcium 20 MG TAB PO SCH (21:45)
[2019-04-20] MEDS: Furosemide 100 MG/10 ML VIAL SLOW IVP SCH ×2 (06:32→16:20)
[2019-04-20] MEDS: Finasteride 5 MG TAB PO SCH (09:20)
[2019-04-20] MEDS: Dutasteride 0.5 MG CAP PO SCH (09:20)
[2019-04-20] MEDS: Folic Acid 1 MG TAB PO SCH (09:21)
[2019-04-20] MEDS: Tamsulosin HCl 0.4 MG CAP PO SCH (09:21)
[2019-04-20] MEDS: Allopurinol 300 MG TAB PO SCH (09:21)
[2019-04-20] MEDS: Gabapentin 100 MG CAP PO SCH ×3 (09:21→21:47)
[2019-04-20] MEDS: Carvedilol 3.125 MG TAB PO SCH (09:22)
--- NOTE | 2019-04-20 13:49 | PDOC.HOSPP ---
- Subjective Subjective: Seen and examined. Clinically unchanged. Breathing well on low-flow nasal cannula. Patient does not have much of an appetite and is asking me for chocolate milk, I recommended he drink ensure TID with meals if he does not have an appetite for regular food. Patient not moving much. No family at bedside this a.m. - Objective Vital Signs & Weight: Vital Signs (12 hours) Temp Pulse Resp BP Pulse Ox 04/20/19 10:44 98.6 F 04/20/19 07:10 97.8 F 04/20/19 07:07 98 04/20/19 04:00 98.1 F 95 24 H 104/51 L 100 Weight Admit Weight 238 lb Weight 229 lb 8 oz Most Recent Monitor Data Heart Rate from ECG 88 NIBP 110/61 NIBP BP-Mean 77 Respiration from ECG 23 SpO2 97 I&O: 04/19/19 04/20/19 04/21/19 06:59 06:59 06:59 Intake Total 1450 1240 Output Total 2550 2100 Balance -1100 -860 Result Diagrams: 04/15/19 22:17 04/18/19 09:09 Additional Labs: Accuchecks 04/20/19 04/20/19 04/19/19 10:15 05:47 21:46 POC Glucose 147 H 95 114 H 04/19/19 16:01 POC Glucose 155 H Hospitalist ROS - Review of Systems All other systems reviewed; all pertinent +/- noted in HPI/Subj - Medication Medications: Active Medications Generic Name Dose Route Start Last Admin Trade Name Freq PRN Reason Stop Dose Admin Albuterol/Ipratropium 3 ml 04/11/19 06:17 04/16/19 18:11 Duoneb NEB 3 ml [id number] PRN Administration SOB &/or Wheezing Allopurinol 300 mg 04/14/19 09:00 04/20/19 09:21 Zyloprim PO 300 mg DAILY BERNARDINO Administration Atorvastatin Calcium 20 mg 04/14/19 21:00 04/19/19 21:45 Lipitor PO 20 mg HS BERNARDINO Administration Carvedilol 3.125 mg 04/14/19 09:00 04/20/19 09:22 Coreg PO 3.125 mg DAILY BERNARDINO Administration Donepezil HCl 5 mg 04/14/19 21:00 04/19/19 21:45 Aricept PO 5 mg HS BERNARDINO Administration Dutasteride 0.5 mg 04/11/19 09:00 04/20/19 09:20 Avodart PO 0.5 mg DAILY BERNARDINO Administration Finasteride 5 mg 04/14/19 09:00 04/20/19 09:20 Proscar PO 5 mg DAILY BERNARDINO Administration Folic Acid 1 mg 04/14/19 09:00 04/20/19 09:21 Folvite PO 1 mg DAILY BERNARDINO Administration Furosemide 80 mg 04/16/19 14:00 04/20/19 06:32 Lasix SLOW IVP Not Given 0600,1400 BERNARDINO Gabapentin 100 mg 04/11/19 09:00 04/20/19 09:21 Neurontin PO 100 mg TID BERNARDINO Administration Melatonin 6 mg 04/11/19 21:00 04/19/19 21:45 Melatonin PO 6 mg HS BERNARDINO Administration Sertraline HCl 100 mg 04/11/19 09:00 04/20/19 09:21 Zoloft PO 100 mg BID BERNARDINO Administration Sodium Chloride 10 ml 04/10/19 09:00 04/20/19 09:21 Flush - Normal Saline IVF 10 ml Q12HR BERNARDINO Administration Tamsulosin HCl 0.4 mg 04/11/19 09:00 04/20/19 09:21 Flomax PO 0.4 mg DAILY BERNARDINO Administration - Exam General Appearance: NAD Eye: PERRL, anicteric sclera ENT: normocephalic atraumatic, moist mucosa Neck: supple, symmetric, no lymphadenopathy Heart: no murmur, no gallops, no rubs Respiratory: CTAB, no wheezes, no rales, no ronchi Gastrointestinal: soft, non-tender, non-distended, no guarding, no rigidity Extremities: 1+ LE edema Skin: no lesions, no rashes Neurological: cranial nerve grossly intact, no focal deficits Musculoskeletal: generalized weakness Psychiatric: oriented to person, oriented to place, flat affect Hosp A/P (1) ESRD (end stage renal disease) on dialysis Code(s): N18.6 - END STAGE RENAL DISEASE; Z99.2 - DEPENDENCE ON RENAL DIALYSIS Status: Chronic (2) Acute on chronic systolic (congestive) heart failure Code(s): I50.23 - ACUTE ON CHRONIC SYSTOLIC (CONGESTIVE) HEART FAILURE Status : Acute (3) Acute respiratory failure with hypoxemia Code(s): J96.01 - ACUTE RESPIRATORY FAILURE WITH HYPOXIA Status: Acute (4) Pleural effusion Code(s): J90 - PLEURAL EFFUSION, NOT ELSEWHERE CLASSIFIED Status: Acute (5) Pneumonia Code(s): J18.9 - PNEUMONIA, UNSPECIFIED ORGANISM Status: Resolved Qualifiers: Lung location: unspecified part of lung (6) UTI (urinary tract infection) Status: Ruled-out Qualifiers: Indwelling urinary catheter type: unspecified Encounter type: sequela (7) Anemia in CKD (chronic kidney disease) Code(s): N18.9 - CHRONIC KIDNEY DISEASE, UNSPECIFIED; D63.1 - ANEMIA IN CHRONIC KIDNEY DISEASE Status: Acute (8) CLL (chronic lymphocytic leukemia) Code(s): C91.90 - LYMPHOID LEUKEMIA, UNSPECIFIED NOT HAVING ACHIEVED REMISSION Status: Chronic (9) Coronary artery disease Code(s): I25.10 - ATHSCL HEART DISEASE OF [place] CORONARY ARTERY W/O ANG PCTRS Status: Chronic Qualifiers: Coronary Disease-Associated Artery/Lesion type: [place] artery [place] vs. transplanted heart: [place] heart Associated angina: without angina Qualified Code(s): I25.10 - Atherosclerotic heart disease of [place] coronary artery without angina pectoris (10) DM type 2 (diabetes mellitus, type 2) Status: Chronic Qualifiers: Diabetes mellitus human resources partner insulin use: without human resources partner use Diabetes mellitus complication status: with kidney complications Diabetes mellitus complication detail: with chronic kidney disease Chronic kidney disease stage : stage 3 (moderate) Qualified Code(s): E11.22 - Type 2 diabetes mellitus with diabetic chronic kidney disease; N18.3 - Chronic kidney disease, stage 3 ( moderate) (11) Dyslipidemia Code(s): E78.5 - HYPERLIPIDEMIA, UNSPECIFIED Status: Chronic (12) H/O prostate cancer Code(s): Z85.46 - PERSONAL HISTORY OF MALIGNANT NEOPLASM OF PROSTATE Status: Chronic (13) [place]hoe kidney Code(s): Q63.1 - LOBULATED, FUSED AND HORSESHOE KIDNEY Status: Chronic (14) Ischemic cardiomyopathy Code(s): I25.5 - ISCHEMIC CARDIOMYOPATHY Status: Chronic (15) Nephrolithiasis Status: Chronic (16) Parkinson disease Code(s): G20 - PARKINSON'S DISEASE Status: Chronic - Plan Plan: IMCU, stable for med/ tel pulmonology consultation, recommendations appreciated nephrology consultation, recommendations appreciated palliative care consultation, recommendations appreciated supplemental oxygen as needed to maintain O2 saturation greater than 88% BiPAP therapy as needed CKD required HD in the past, HD as needed per nephrology continue home medications as able Cardiomyopathy regimen as able Long and short term prognosis for meaningul recovery is poor despite maximum medical/ surgical management
--- NOTE | 2019-04-20 17:58 | PRG ---
DATE OF SERVICE: 04/20/2019 SUBJECTIVE: Pierre Rowland is in no distress. He has no complaints. He is able to lie flat in bed. OBJECTIVE: VITAL SIGNS: He is afebrile. Blood pressure 110/62, heart rate is 88, respiratory rate is in the teens, he is on 2 L. LUNGS: Clear. HEART: Regular rhythm. ABDOMEN: Soft and nontender. EXTREMITIES: Without asymmetry or edema. LABORATORY DATA: White count 8.3, hemoglobin 8.8, platelets 288. No new electrolytes today. No blood gas today. IMPRESSION: Congestive heart failure, transudative effusion, proteinuria, chronic respiratory failure with hypoxia and hypercarbia, advanced age with deconditioning, obesity, anasarca, status post placement of defibrillator, chronic kidney disease, chronic lymphocytic leukemia. Needless to say, his prognosis is dismal short-term. Placement in the assisted in my opinion is the next best option. There is no family at the bedside today. He is stable to move out of the intermediate care unit to a medical bed. Job ID: [id number]
[2019-04-20] MEDS: Atorvastatin Calcium 20 MG TAB PO SCH (21:47)
[2019-04-20] MEDS: Donepezil HCl 5 MG TAB PO SCH (21:47)
[2019-04-20] MEDS: Melatonin 3 MG TAB PO SCH (21:47)
[2019-04-21] MEDS: Furosemide 40 MG/4 ML VIAL SLOW IVP SCH ×2 (05:45→14:48)
[2019-04-21 06:56] LABS: BUN (Urea Nitrogen) 37 mg/dL (8.4-25.7); Calc. Creatinine Clearance 59 mL/min (70-130); Calcium 8.9 mg/dL (7.8-10.44); Estimated GFR-MDRD 53; Glucose 126 mg/dL (83-110)
[2019-04-21 07:04] LABS: Chloride 96 mmol/L (98-107); Potassium 2.9 mmol/L (3.5-5.1); Sodium 147 mmol/L (136-145)
[2019-04-21 07:30] LABS: Carbon Dioxide 37 mmol/L (23-31)
[2019-04-21 07:32] LABS: Anion Gap 17 mmol/L (10-20)
[2019-04-21] MEDS: Potassium Chloride 20 MEQ TAB PO SCH ×2 (09:12→17:47)
[2019-04-21] MEDS: Allopurinol 300 MG TAB PO SCH (09:12)
[2019-04-21] MEDS: Carvedilol 3.125 MG TAB PO SCH (09:12)
[2019-04-21] MEDS: Folic Acid 1 MG TAB PO SCH (09:13)
[2019-04-21] MEDS: Dutasteride 0.5 MG CAP PO SCH (09:13)
[2019-04-21] MEDS: Gabapentin 100 MG CAP PO SCH ×3 (09:13→21:06)
[2019-04-21] MEDS: Finasteride 5 MG TAB PO SCH (09:13)
[2019-04-21] MEDS: Tamsulosin HCl 0.4 MG CAP PO SCH (09:13)
--- NOTE | 2019-04-21 10:49 | PRG ---
DATE OF SERVICE: 04/21/2019 SUBJECTIVE: The patient is about the same. He is very sleepy. He will arouse. His sentences are short. OBJECTIVE: VITAL SIGNS: Temperature is 98.2, pulse 83, respirations 18, O2 saturation 94% on 2 L, and blood pressure 121/65. HEENT: Unremarkable. NECK: No adenopathy or JVD. CHEST: Clear anteriorly. Diminished breath sounds at bases. CARDIAC: S1 and S2. Regular. ABDOMEN: Soft. EXTREMITIES: Edematous. LABORATORY DATA: Sodium 147, potassium 2.9, chloride 96, CO2 of 37, BUN 37, creatinine 1.3, and glucose 126. ASSESSMENT: 1. Generalized failure to thrive. 2. Congestive heart failure with transudative effusions. 3. Anemia of chronic disease with iron deficiency. PLAN: I spoke with the son at the bedside. He is apparently accessing the portal and getting lab results on an almost daily basis. He asked me to go ahead and try to replace the patient's iron. Job ID: [id number]
--- NOTE | 2019-04-21 16:24 | PDOC.HOSPP ---
- Subjective Subjective: Seen and examined. Saturating well on low-flow nasal cannula. The patient does tell me that he fell short of breath, O2 saturation's are adequate. Patient did well with breakfast. No family at bedside this a.m. - Objective Vital Signs & Weight: Vital Signs (12 hours) Temp Pulse Resp BP Pulse Ox 04/21/19 11:25 97.9 F 86 18 110/56 L 95 04/21/19 08:00 98.2 F 83 18 121/65 94 L Weight Admit Weight 238 lb Weight 221 lb 3.2 oz Most Recent Monitor Data Heart Rate from ECG 89 NIBP 113/54 NIBP BP-Mean 73 Respiration from ECG 19 SpO2 99 I&O: 04/20/19 04/21/19 04/22/19 06:59 06:59 06:59 Intake Total 1240 1300 Output Total 2100 1425 Balance -860 -125 Result Diagrams: 04/15/19 22:17 04/21/19 05:25 Additional Labs: Accuchecks 04/21/19 04/21/19 04/20/19 10:34 05:33 20:35 POC Glucose 193 H 138 H 197 H 04/20/19 16:15 POC Glucose 147 H Hospitalist ROS - Review of Systems All other systems reviewed; all pertinent +/- noted in HPI/Subj - Medication Medications: Active Medications Generic Name Dose Route Start Last Admin Trade Name Freq PRN Reason Stop Dose Admin Albuterol/Ipratropium 3 ml 04/11/19 06:17 04/16/19 18:11 Duoneb NEB 3 ml [id number] PRN Administration SOB &/or Wheezing Allopurinol 300 mg 04/14/19 09:00 04/21/19 09:12 Zyloprim PO 300 mg DAILY BERNARDINO Administration Atorvastatin Calcium 20 mg 04/14/19 21:00 04/20/19 21:47 Lipitor PO 20 mg HS BERNARDINO Administration Carvedilol 3.125 mg 04/14/19 09:00 04/21/19 09:12 Coreg PO 3.125 mg DAILY BERNARDINO Administration Donepezil HCl 5 mg 04/14/19 21:00 04/20/19 21:47 Aricept PO 5 mg HS BERNARDINO Administration Dutasteride 0.5 mg 04/11/19 09:00 04/21/19 09:13 Avodart PO 0.5 mg DAILY BERNARDINO Administration Finasteride 5 mg 04/14/19 09:00 04/21/19 09:13 Proscar PO 5 mg DAILY BERNARDINO Administration Folic Acid 1 mg 04/14/19 09:00 04/21/19 09:13 Folvite PO 1 mg DAILY BERNARDINO Administration Furosemide 40 mg 04/21/19 06:00 04/21/19 14:48 Lasix SLOW IVP 40 mg 0600,1400 BERNARDINO Administration Gabapentin 100 mg 04/11/19 09:00 04/21/19 14:49 Neurontin PO 100 mg TID BERNARDINO Administration Melatonin 6 mg 04/11/19 21:00 04/20/19 21:47 Melatonin PO 6 mg HS BERNARDINO Administration Potassium Chloride 40 meq 04/21/19 08:00 04/21/19 09:12 K-Dur PO 04/21/19 17:01 40 meq BID-WM BERNARDINO Administration Sertraline HCl 100 mg 04/11/19 09:00 04/21/19 09:13 Zoloft PO 100 mg BID BERNARDINO Administration Sodium Chloride 10 ml 04/10/19 09:00 04/21/19 09:13 Flush - Normal Saline IVF 10 ml Q12HR BERNARDINO Administration Tamsulosin HCl 0.4 mg 04/11/19 09:00 04/21/19 09:13 Flomax PO 0.4 mg DAILY BERNARDINO Administration - Exam General Appearance: NAD, awake alert Eye: PERRL ENT: normocephalic atraumatic, moist mucosa Neck: supple, symmetric, no lymphadenopathy Heart: no murmur, no gallops, no rubs Respiratory: no rales, no ronchi, normal chest expansion, wheezes Gastrointestinal: soft, non-tender, non-distended, normal bowel sounds, no guarding, no rigidity Extremities: no edema Skin: no lesions, no rashes Neurological: cranial nerve grossly intact, no focal deficits Musculoskeletal: generalized weakness Psychiatric: oriented to person, oriented to place, flat affect Hosp A/P (1) ESRD (end stage renal disease) on dialysis Code(s): N18.6 - END STAGE RENAL DISEASE; Z99.2 - DEPENDENCE ON RENAL DIALYSIS Status: Chronic (2) Acute on chronic systolic (congestive) heart failure Code(s): I50.23 - ACUTE ON CHRONIC SYSTOLIC (CONGESTIVE) HEART FAILURE Status : Acute (3) Acute respiratory failure with hypoxemia Code(s): J96.01 - ACUTE RESPIRATORY FAILURE WITH HYPOXIA Status: Acute (4) Pleural effusion Code(s): J90 - PLEURAL EFFUSION, NOT ELSEWHERE CLASSIFIED Status: Acute (5) Pneumonia Code(s): J18.9 - PNEUMONIA, UNSPECIFIED ORGANISM Status: Resolved Qualifiers: Lung location: unspecified part of lung (6) UTI (urinary tract infection) Status: Ruled-out Qualifiers: Indwelling urinary catheter type: unspecified Encounter type: sequela (7) Anemia in CKD (chronic kidney disease) Code(s): N18.9 - CHRONIC KIDNEY DISEASE, UNSPECIFIED; D63.1 - ANEMIA IN CHRONIC KIDNEY DISEASE Status: Acute (8) CLL (chronic lymphocytic leukemia) Code(s): C91.90 - LYMPHOID LEUKEMIA, UNSPECIFIED NOT HAVING ACHIEVED REMISSION Status: Chronic (9) Coronary artery disease Code(s): I25.10 - ATHSCL HEART DISEASE OF [place] CORONARY ARTERY W/O ANG PCTRS Status: Chronic Qualifiers: Coronary Disease-Associated Artery/Lesion type: [place] artery [place] vs. transplanted heart: [place] heart Associated angina: without angina Qualified Code(s): I25.10 - Atherosclerotic heart disease of [place] coronary artery without angina pectoris (10) DM type 2 (diabetes mellitus, type 2) Status: Chronic Qualifiers: Diabetes mellitus mcc insulin use: without mcc use Diabetes mellitus complication status: with kidney complications Diabetes mellitus complication detail: with chronic kidney disease Chronic kidney disease stage : stage 3 (moderate) Qualified Code(s): E11.22 - Type 2 diabetes mellitus with diabetic chronic kidney disease; N18.3 - Chronic kidney disease, stage 3 ( moderate) (11) Dyslipidemia Code(s): E78.5 - HYPERLIPIDEMIA, UNSPECIFIED Status: Chronic (12) H/O prostate cancer Code(s): Z85.46 - PERSONAL HISTORY OF MALIGNANT NEOPLASM OF PROSTATE Status: Chronic (13) Horseshoe kidney Code(s): Q63.1 - LOBULATED, FUSED AND HORSESHOE KIDNEY Status: Chronic (14) Ischemic cardiomyopathy Code(s): I25.5 - ISCHEMIC CARDIOMYOPATHY Status: Chronic (15) Nephrolithiasis Status: Chronic (16) Parkinson disease Code(s): G20 - PARKINSON'S DISEASE Status: Chronic - Plan Plan: med/ tel pulmonology consultation, recommendations appreciated nephrology consultation, recommendations appreciated palliative care consultation, recommendations appreciated CM consultation, recommendations appreciated - will need placement in SNF Pulm status has been stable, question is for how long Renal function has been stable, continue IV lasix - will transition to oral if continues to improve Replace electrolytes as needed supplemental oxygen as needed to maintain O2 saturation greater than 88% BiPAP therapy as needed CKD per nephrology continue home medications as able Cardiomyopathy regimen as able Long and short term prognosis for meaningful recovery is poor despite maximum medical/ surgical management
[2019-04-21] MEDS: Ferrous Sulfate 325 MG TAB PO SCH (17:47)
[2019-04-21] MEDS: Atorvastatin Calcium 20 MG TAB PO SCH (21:05)
[2019-04-21] MEDS: Donepezil HCl 5 MG TAB PO SCH (21:06)
[2019-04-21] MEDS: Docusate 100 MG CAP PO SCH (21:06)
[2019-04-21] MEDS: Melatonin 3 MG TAB PO SCH (21:07)
[2019-04-22] MEDS: Furosemide 40 MG/4 ML VIAL SLOW IVP SCH ×2 (05:51→14:28)
[2019-04-22 06:24] LABS: BUN (Urea Nitrogen) 37 mg/dL (8.4-25.7); Calc. Creatinine Clearance 62 mL/min (70-130); Calcium 8.8 mg/dL (7.8-10.44); Estimated GFR-MDRD 57; Glucose 100 mg/dL (83-110)
[2019-04-22 06:42] LABS: Chloride 99 mmol/L (98-107)
[2019-04-22 06:43] LABS: Sodium 146 mmol/L (136-145)
[2019-04-22 06:45] LABS: Anion Gap 13 mmol/L (10-20); Carbon Dioxide 38 mmol/L (23-31)
[2019-04-22] MEDS: Ferrous Sulfate 325 MG TAB PO SCH ×2 (09:00→16:52)
[2019-04-22] MEDS: Finasteride 5 MG TAB PO SCH (09:06)
[2019-04-22] MEDS: Folic Acid 1 MG TAB PO SCH (09:06)
[2019-04-22] MEDS: Docusate 100 MG CAP PO SCH ×2 (09:06→20:09)
[2019-04-22] MEDS: Allopurinol 300 MG TAB PO SCH (09:06)
[2019-04-22] MEDS: Gabapentin 100 MG CAP PO SCH ×3 (09:06→20:09)
[2019-04-22] MEDS: Dutasteride 0.5 MG CAP PO SCH (09:06)
[2019-04-22] MEDS: Tamsulosin HCl 0.4 MG CAP PO SCH (09:06)
[2019-04-22] MEDS: Carvedilol 3.125 MG TAB PO SCH (09:07)
--- NOTE | 2019-04-22 09:07 | PRG ---
DATE OF SERVICE: 04/22/2019 SUBJECTIVE: The patient states that he is feeling better, his on diuretics, Lasix IV b.i.d. OBJECTIVE: VITAL SIGNS: He is afebrile, 97, 89, 19, 94% on 2 L, 115/59. I'S and O's 1000 in and 2250 out. He is negative 1.2 L. ABDOMEN: Morbidly obese, protuberant. No rigidity. No rebound. : Benavides catheter draining. PERTINENT LABORATORY DATA: Creatinine today is 1.21. IMPRESSION AND PLAN: 1. Mr. Rowland is an 88-year-old male with history of horseshoe kidney, bilateral stone burden with history of right obstructing ureteral calculi, impacted, status post laser lithotripsy, stent exchange, March 24. 2. History of subcapsular hematoma with caliceal rupture due to high-grade right ureteral obstruction. 3. History of left pleural effusion, resolved with diuresis, status post thoracocentesis. I was planning on removing the stent last week; however, this was held off, as he developed pleural effusion. Although, he remains in frail condition, his pleural effusion has resolved, currently stable on diuresis. I will proceed with a stent pull tomorrow under local versus light TIVA. N.P.O. after midnight. IV antibiotic on-call order in chart. From perspective, if he tolerates the stent being removed, he can be discharged to snf facility ideally on . Stent pull scheduled for tomorrow afternoon. Job ID: [id number]
--- NOTE | 2019-04-22 09:52 | PDOC.HOSPP ---
- Subjective Encounter Date: 04/22/19 Subjective: pt seen son in the room concerned about pt albumin level low also wants lisinopril can be started and corticosteroids can be added Pt says has mild abdominal pain and nasuea , Denies vomiting SOB improving not in distress - Objective Vital Signs & Weight: Vital Signs (12 hours) Temp Pulse Resp BP Pulse Ox 04/22/19 07:26 97.4 F L 89 18 115/59 L 94 L 04/22/19 04:00 97.3 F L 91 16 117/55 L 94 L Weight Admit Weight 238 lb Weight 222 lb Most Recent Monitor Data Heart Rate from ECG 89 NIBP 113/54 NIBP BP-Mean 73 Respiration from ECG 19 SpO2 99 I&O: 04/21/19 04/22/19 04/23/19 06:59 06:59 06:59 Intake Total 1300 970 Output Total 1425 2250 Balance -125 -1280 Result Diagrams: 04/15/19 22:17 04/22/19 05:54 Additional Labs: Accuchecks 04/22/19 04/21/19 04/21/19 05:59 20:17 16:35 POC Glucose 103 224 H 176 H 04/21/19 10:34 POC Glucose 193 H Hospitalist ROS - Review of Systems Constitutional: denies: fever Eyes: denies: vision change ENT: denies: ear pain Respiratory: reports: cough, shortness of breath Cardiovascular: denies: chest pain Gastrointestinal: reports: nausea, abdominal pain Genitourinary: reports: other ([place]) Musculoskeletal: denies: neck pain Neurological: reports: weakness - Medication Medications: Active Medications Generic Name Dose Route Start Last Admin Trade Name Freq PRN Reason Stop Dose Admin Albuterol/Ipratropium 3 ml 04/11/19 06:17 04/16/19 18:11 Duoneb NEB 3 ml [id number] PRN Administration SOB &/or Wheezing Allopurinol 300 mg 04/14/19 09:00 04/22/19 09:06 Zyloprim PO 300 mg DAILY BERNARDINO Administration Atorvastatin Calcium 20 mg 04/14/19 21:00 04/21/19 21:05 Lipitor PO 20 mg HS BERNARDINO Administration Carvedilol 3.125 mg 04/14/19 09:00 04/22/19 09:07 Coreg PO 3.125 mg DAILY BERNARDINO Administration Docusate Sodium 100 mg 04/21/19 21:00 04/22/19 09:06 Colace PO 100 mg BID BERNARDINO Administration Donepezil HCl 5 mg 04/14/19 21:00 04/21/19 21:06 Aricept PO 5 mg HS BERNARDINO Administration Dutasteride 0.5 mg 04/11/19 09:00 04/22/19 09:06 Avodart PO 0.5 mg DAILY BERNARDINO Administration Ferrous Sulfate 325 mg 04/21/19 17:00 04/22/19 09:00 Feosol PO 325 mg BID-WM BERNARDINO Administration Finasteride 5 mg 04/14/19 09:00 04/22/19 09:06 Proscar PO 5 mg DAILY BERNARDINO Administration Folic Acid 1 mg 04/14/19 09:00 04/22/19 09:06 Folvite PO 1 mg DAILY BERNARDINO Administration Furosemide 40 mg 04/21/19 06:00 04/22/19 05:51 Lasix SLOW IVP 40 mg 0600,1400 BERNARDINO Administration Gabapentin 100 mg 04/11/19 09:00 04/22/19 09:06 Neurontin PO 100 mg TID BERNARDINO Administration Melatonin 6 mg 04/11/19 21:00 04/21/19 21:07 Melatonin PO 6 mg HS BERNARDINO Administration Sertraline HCl 100 mg 04/11/19 09:00 04/22/19 09:06 Zoloft PO 100 mg BID BERNARDINO Administration Sodium Chloride 10 ml 04/10/19 09:00 04/22/19 09:07 Flush - Normal Saline IVF 10 ml Q12HR BERNARDINO Administration Tamsulosin HCl 0.4 mg 04/11/19 09:00 04/22/19 09:06 Flomax PO 0.4 mg DAILY BERNARDINO Administration - Exam General Appearance: ill appearing Eye: anicteric sclera ENT: normocephalic atraumatic Neck: supple Heart: no murmur Respiratory: no wheezes Gastrointestinal: soft, non-distended, normal bowel sounds Extremities: negative: no cyanosis Skin: normal turgor Musculoskeletal: normal tone Psychiatric: lethargic Hosp A/P - Plan Hosp A/P Acute on chronic systolic (congestive) heart failureContinue lasix , Oxygen son wants if lisinopril can be added Acute respiratory failure with hypoxemia and hypercapnea Pneumoniaand pl effusion Continue oxygen UTI (urinary tract infection) with Horseshoe kidney and Nephrolithiasis and ureteral stone s/p laser lithotrypsy and stent exchange Continue meropenuum , Diflucan pending stent removal in am Anemia in CKD (chronic kidney disease) Continue iron CLL (chronic lymphocytic leukemia) Discussed with Dr Hampton No need Ibrutinib Coronary artery disease Currently Denies chest pain DM type 2 (diabetes mellitus, type 2) Continue to monitor blood sugar Dyslipidemia H/O prostate cancer Continue flomax finastride , avodart Ischemic cardiomyopathy Continue lasix , coreg Parkinson disease Continue supportive care Functional Decline Continue PT evaluation Discussed with Son , Dr Mccann and nursing staff in detail , Son has had multiple questions about management plan addressed All questions
--- NOTE | 2019-04-22 14:57 | PDOC.MOPN ---
Interval History: Patient resting comfortable. and son at bedside. Possible dc home later this week. - Vital Signs Vital Signs: Vital Signs (12 hours) Temp Pulse Pulse Pulse Resp BP BP 04/22/19 11:49 92 88 120/55 L 115/55 L 04/22/19 11:34 98.1 F 85 18 04/22/19 07:26 97.4 F L 89 18 04/22/19 04:00 97.3 F L 91 16 BP Pulse Ox 04/22/19 11:49 04/22/19 11:34 130/58 L 95 04/22/19 07:26 115/59 L 94 L 04/22/19 04:00 117/55 L 94 L Weight Admit Weight 238 lb Weight 222 lb Most Recent Monitor Data Heart Rate from ECG 89 NIBP 113/54 NIBP BP-Mean 73 Respiration from ECG 19 SpO2 99 - Physical Exam General: No acute distress HEENT: Atraumatic Cardiovascular: Regular rate - Labs Result Diagrams: 04/15/19 22:17 04/22/19 05:54 Lab results: Laboratory Results - last 24 hr 04/22/19 10:43: POC Glucose 144 H 04/22/19 05:59: POC Glucose 103 04/22/19 05:54: Sodium 146 H, Potassium 4.0, Chloride 99, Carbon Dioxide 38 H, Anion Gap 13, BUN 37 H, Creatinine 1.21, Estimated GFR (MDRD) 57, Glucose 100, Calcium 8.8 04/21/19 20:17: POC Glucose 224 H 04/21/19 16:35: POC Glucose 176 H Status: lab reviewed by me A/P - Problem (1) CLL (chronic lymphocytic leukemia) Current Visit: Yes Code(s): C91.10 - CHRONIC LYMPHOCYTIC LEUK OF B-CELL TYPE NOT ACHIEVE REMIS Status: Acute (2) Acute on chronic systolic (congestive) heart failure Current Visit: No Code(s): I50.23 - ACUTE ON CHRONIC SYSTOLIC (CONGESTIVE) HEART FAILURE Status: Acute (3) Anemia in CKD (chronic kidney disease) Current Visit: No Code(s): N18.9 - CHRONIC KIDNEY DISEASE, UNSPECIFIED; D63.1 - ANEMIA IN CHRONIC KIDNEY DISEASE Status: Acute (4) CLL (chronic lymphocytic leukemia) Current Visit: No Code(s): C91.90 - LYMPHOID LEUKEMIA, UNSPECIFIED NOT HAVING ACHIEVED REMISSION Status: Chronic - Plan Plan: 1. Continue to hold Ibrutinib 2. Follow-up outpatient with Dr. Mccann once strength improves 3. Anemia of chronic disease is stable. Continue oral iron.
[2019-04-22] MEDS: Melatonin 3 MG TAB PO SCH (20:09)
[2019-04-22] MEDS: Atorvastatin Calcium 20 MG TAB PO SCH (20:09)
[2019-04-23 05:29] LABS: #Basophils 0.1 thou/uL (0.0-0.2); #Eosinphils 0.3 thou/uL (0.0-0.7); #Lymphocytes 1.8 thou/uL (1.20-3.40); #Monocytes 0.5 thou/uL (0.11-0.59); #Neutrophils 4.8 thou/uL (1.40-6.50); %Basophils 0.7 % (0.0-1.0); %Eosinophils 4.5 % (0.0-10.0); %Lymphocytes 24.1 % (21.0-51.0); %Monocytes 6.8 % (0.0-10.0); %Neutrophils 63.9 % (42.0-75.0); Hemoglobin 8.5 g/dL (14.0-18.0); Mean Corpuscular HGB CONC 32.3 g/dL (32.0-36.0); Mean Corpuscular Hemoglobin 29.9 pg (27.0-31.0); Mean Corpuscular Volume 92.6 fL (78.0-98.0); Mean Platelet Volume 6.6 fL (7.4-10.4); Platelet Count 234 thou/uL (130-400); RBC Distribution Width 16.4 % (11.5-14.5); Red Blood Cell (RBC) Count 2.86 mill/uL (4.70-6.10); White Blood Cell (WBC) Count 7.5 thou/uL (4.8-10.8)
[2019-04-23] MEDS: Furosemide 40 MG/4 ML VIAL SLOW IVP SCH ×2 (06:00→14:57)
[2019-04-23 06:05] LABS: ALT (SGPT) 15 U/L (8-55); AST (SGOT) 25 U/L (5-34); Albumin 2.5 g/dL (3.4-4.8); Alkaline Phosphatase 64 U/L (40-110); BUN (Urea Nitrogen) 34 mg/dL (8.4-25.7); Bilirubin, Total 0.4 mg/dL (0.2-1.2); Calc. Creatinine Clearance 60 mL/min (70-130); Calcium 8.8 mg/dL (7.8-10.44); Estimated GFR-MDRD 58; Globulin 3.7 g/dL (2.4-3.5); Glucose 87 mg/dL (83-110); Magnesium 2.1 mg/dL (1.6-2.6); Protein, Total 6.2 g/dL (5.8-8.1)
[2019-04-23] MEDS ORDERED: Meropenem 2 GM in Sodium Chloride 0.9% 100 ML IVPB SCH (06:15)
[2019-04-23 06:18] LABS: Chloride 96 mmol/L (98-107); Potassium 3.7 mmol/L (3.5-5.1); Sodium 143 mmol/L (136-145)
[2019-04-23 06:21] LABS: Anion Gap 15 mmol/L (10-20); Carbon Dioxide 36 mmol/L (23-31)
[2019-04-23] MEDS ORDERED: Iothalamate Meglumine 60% 50 ML VIAL FS ONE (11:56)
[2019-04-23] MEDS ORDERED: Fluconazole In NaCl,Iso-Osm 200 MG in Premix Bag 1 BAG IVPB SCH (12:00)
[2019-04-23] MEDS ORDERED: Meropenem 2 GM in Admixture Fee 1 EACH IVPB ONE ×2 (12:00→12:30)
[2019-04-23 12:53] VITALS: BMI 32.0
[2019-04-23] MEDS ORDERED: PROPOFOL 200 MG/20 ML VIAL ONE (13:01)
--- NOTE | 2019-04-23 13:13 | PDOC.HOSPP ---
- Subjective Encounter Date: 04/23/19 Subjective: Pt seen feeling same , weak and abdominal discomfort , no fever - Objective Vital Signs & Weight: Vital Signs (12 hours) Temp Pulse Resp BP Pulse Ox 04/23/19 07:46 97.5 F L 81 18 94/52 L 94 L 04/23/19 04:01 93 L 04/23/19 04:00 97.8 F 72 20 107/51 L 94 L Weight Admit Weight 238 lb Weight 210 lb 12.8 oz Most Recent Monitor Data Heart Rate from ECG 89 NIBP 113/54 NIBP BP-Mean 73 Respiration from ECG 19 SpO2 99 I&O: 04/22/19 04/23/19 04/24/19 06:59 06:59 06:59 Intake Total 970 1160 Output Total 2250 1825 Balance -2830 -215 Result Diagrams: 04/23/19 04:40 04/23/19 04:39 Additional Labs: Accuchecks 04/23/19 04/22/19 04/22/19 05:34 20:04 17:16 POC Glucose 93 218 H 181 H Hospitalist ROS - Review of Systems Constitutional: reports: weakness Eyes: denies: pain ENT: denies: ear pain Respiratory: reports: shortness of breath. denies: cough Cardiovascular: denies: chest pain Gastrointestinal: reports: abdominal pain Genitourinary: denies: dysuria Musculoskeletal: denies: neck pain Neurological: denies: weakness - Medication Medications: Active Medications Generic Name Dose Route Start Last Admin Trade Name Freq PRN Reason Stop Dose Admin Albuterol/Ipratropium 3 ml 04/11/19 06:17 04/16/19 18:11 Duoneb NEB 3 ml [id number] PRN Administration SOB &/or Wheezing Allopurinol 300 mg 04/14/19 09:00 04/22/19 09:06 Zyloprim PO 300 mg DAILY BERNARDINO Administration Atorvastatin Calcium 20 mg 04/14/19 21:00 04/22/19 20:09 Lipitor PO 20 mg HS BERNARDINO Administration Carvedilol 3.125 mg 04/14/19 09:00 04/22/19 09:07 Coreg PO 3.125 mg DAILY BERNARDINO Administration Docusate Sodium 100 mg 04/21/19 21:00 04/22/19 20:09 Colace PO 100 mg BID BERNARDINO Administration Donepezil HCl 5 mg 04/14/19 21:00 04/21/19 21:06 Aricept PO 5 mg HS BERNARDINO Administration Dutasteride 0.5 mg 04/11/19 09:00 04/22/19 09:06 Avodart PO 0.5 mg DAILY BERNARDINO Administration Ferrous Sulfate 325 mg 04/21/19 17:00 04/22/19 16:52 Feosol PO 325 mg BID-WM BERNARDINO Administration Finasteride 5 mg 04/14/19 09:00 04/22/19 09:06 Proscar PO 5 mg DAILY BERNARDINO Administration Folic Acid 1 mg 04/14/19 09:00 04/22/19 09:06 Folvite PO 1 mg DAILY BERNARDINO Administration Furosemide 40 mg 04/21/19 06:00 04/23/19 06:00 Lasix SLOW IVP 40 mg 0600,1400 BERNARDINO Administration Gabapentin 100 mg 04/11/19 09:00 04/22/19 20:09 Neurontin PO 100 mg TID BERNARDINO Administration Melatonin 6 mg 04/11/19 21:00 04/22/19 20:09 Melatonin PO 6 mg HS BERNARDINO Administration Sertraline HCl 100 mg 04/11/19 09:00 04/22/19 20:10 Zoloft PO 100 mg BID BERNARDINO Administration Sodium Chloride 10 ml 04/10/19 09:00 04/22/19 20:10 Flush - Normal Saline IVF 10 ml Q12HR BERNARDINO Administration Tamsulosin HCl 0.4 mg 04/11/19 09:00 04/22/19 09:06 Flomax PO 0.4 mg DAILY BERNARDINO Administration - Exam General Appearance: ill appearing Eye: anicteric sclera ENT: normocephalic atraumatic Neck: supple Heart: no murmur Respiratory: no wheezes Gastrointestinal: soft, non-tender Extremities: no cyanosis Neurological: cranial nerve grossly intact Musculoskeletal: normal tone Hosp A/P - Plan Hosp A/P Acute on chronic systolic (congestive) heart failure Continue lasix , Oxygen son wants if lisinopril can be added BP on lower side today if table BP next 24 hours will add lisinopril Acute respiratory failure with hypoxemia and hypercapnea Pneumoniaand pl effusion Continue oxygen , continue nebs PRN UTI (urinary tract infection) with Horseshoe kidney and Nephrolithiasis and ureteral stone s/p laser lithotrypsy and stent exchange Continue meropenuum , Diflucan pending stent removal TODAY Anemia in CKD (chronic kidney disease) Continue iron currently stable CLL (chronic lymphocytic leukemia) Discussed with Dr Hampton No need Ibrutinib Coronary artery disease Currently Denies chest pain DM type 2 (diabetes mellitus, type 2) Continue to monitor blood sugar Dyslipidemia H/O prostate cancer Continue flomax finastride , avodart Ischemic cardiomyopathy Continue lasix , coreg Parkinson disease Continue supportive care Functional Decline Continue PT evaluation Discussed with nursing staff in detail
--- NOTE | 2019-04-23 14:07 | PRG ---
DATE OF SERVICE: 04/23/2019 SUBJECTIVE: Seems to be in better spirits, had no acute complaints today. OBJECTIVE: VITAL SIGNS: His temperature is 97.5, pulse 81, respirations 18, O2 saturation 94% on 2 L, and blood pressure 94/52. HEENT: Unremarkable. NECK: Without adenopathy or JVD. CHEST: Fairly clear anteriorly bilaterally. CARDIAC: S1 and S2. Regular. ABDOMEN: Soft. EXTREMITIES: Trace edema. LABORATORY DATA: White blood cell count 7.5, hematocrit 26.5, and platelet count 234. Sodium 143, potassium 3.7, BUN 34, creatinine 1.2, and glucose 87. His BNP level 615. ASSESSMENT: 1. Stable pulmonary status. He has transudative effusions from heart failure. 2. Anemia of chronic disease. 3. Underlying obstructive sleep apnea. PLAN: He is continuing aggressive medical management. I would expect that he would need some type of rehab at the time of discharge. No further recommendations. We will see less often. Job ID: [id number]
[2019-04-23] MEDS: Tamsulosin HCl 0.4 MG CAP PO SCH (14:50)
[2019-04-23] MEDS: Finasteride 5 MG TAB PO SCH (14:50)
[2019-04-23] MEDS: Folic Acid 1 MG TAB PO SCH (14:50)
[2019-04-23] MEDS: Dutasteride 0.5 MG CAP PO SCH (14:50)
[2019-04-23] MEDS: Gabapentin 100 MG CAP PO SCH ×3 (14:50→20:11)
[2019-04-23] MEDS: Ferrous Sulfate 325 MG TAB PO SCH ×2 (14:50→18:17)
[2019-04-23] MEDS: Allopurinol 300 MG TAB PO SCH (14:51)
[2019-04-23] MEDS: Docusate 100 MG CAP PO SCH ×2 (14:51→20:10)
[2019-04-23] MEDS: Carvedilol 3.125 MG TAB PO SCH (14:51)
--- NOTE | 2019-04-23 17:00 | OP ---
DATE OF PROCEDURE: 04/23/2019 PREOPERATIVE DIAGNOSIS: An 88-year-old male with history of horseshoe kidney with bilateral renal stone burden with history of right multiple impacted ureteral calculi status post ureteroscopy and laser lithotripsy. POSTOPERATIVE DIAGNOSIS: An 88-year-old male with history of horseshoe kidney with bilateral renal stone burden with history of right multiple impacted ureteral calculi status post ureteroscopy and laser lithotripsy. PROCEDURES PERFORMED: 1. Cystoscopy. 2. Right stent removal. 3. An 18-Citizen Of [place] Coude 10 mL Benavides catheter placement. ANESTHESIA: TIVA. COMPLICATIONS: None apparent. IV FLUIDS: 200 mL. INDICATIONS FOR PROCEDURE: Mr. Rowland is an 88-year-old male with significant comorbidities, underwent right ureteroscopy and laser lithotripsy last month. He has been in the hospital due to cardiopulmonary issues and his outpatient cysto stent removal was deferred. He presents to proceed with cysto stent pull today. Risks and complications and indications of the procedure have been discussed with the patient and in detail. They desired to proceed with stent removal. DESCRIPTION OF PROCEDURE: After an informed consent was signed, the patient was taken to the operating room. Broad-spectrum antibiotics were provided. Bilateral SCDs were placed. TIVA anesthesia was administered. A 22-Citizen Of [place] cystoscope was utilized for cystoscopy, which demonstrated normal anterior and posterior urethra. 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 The bladder was grossly unremarkable. I did remove his ureteral stent with a grasper atraumatically. An 18-Citizen Of [place] Coude was placed, 10 mL insufflated and irrigated to clear. The patient will be monitored overnight, with labs. Pending disposition, he will most likely be discharge to LTAC longterm facility; however, it is my understanding the patient's family is requesting to take the patient home. Job ID: [id number]
[2019-04-23] MEDS: Atorvastatin Calcium 20 MG TAB PO SCH (20:10)
[2019-04-23] MEDS: Melatonin 3 MG TAB PO SCH (20:11)
[2019-04-24 04:55] LABS: #Eosinphils 0.5 thou/uL (0.0-0.7); #Lymphocytes 1.6 thou/uL (1.20-3.40); #Monocytes 0.6 thou/uL (0.11-0.59); #Neutrophils 6.2 thou/uL (1.40-6.50); %Basophils 0.4 % (0.0-1.0); %Eosinophils 5.6 % (0.0-10.0); %Lymphocytes 18.1 % (21.0-51.0); %Monocytes 6.7 % (0.0-10.0); %Neutrophils 69.2 % (42.0-75.0); Hemoglobin 8.6 g/dL (14.0-18.0); Mean Corpuscular Hemoglobin 29.4 pg (27.0-31.0); Mean Platelet Volume 6.7 fL (7.4-10.4); Platelet Count 251 thou/uL (130-400); RBC Distribution Width 16.7 % (11.5-14.5); Red Blood Cell (RBC) Count 2.93 mill/uL (4.70-6.10); White Blood Cell (WBC) Count 8.9 thou/uL (4.8-10.8)
[2019-04-24 05:16] LABS: BUN (Urea Nitrogen) 37 mg/dL (8.4-25.7); Calc. Creatinine Clearance 51 mL/min (70-130); Calcium 9.1 mg/dL (7.8-10.44); Estimated GFR-MDRD 48; Glucose 124 mg/dL (83-110)
[2019-04-24 05:27] LABS: Anion Gap 16 mmol/L (10-20); Carbon Dioxide 38 mmol/L (23-31); Chloride 98 mmol/L (98-107); Potassium 4.5 mmol/L (3.5-5.1); Sodium 147 mmol/L (136-145)
[2019-04-24] MEDS: Furosemide 40 MG/4 ML VIAL SLOW IVP SCH (05:34)
--- NOTE | 2019-04-24 07:50 | PRG ---
DATE OF SERVICE: 04/24/2019 SUBJECTIVE: The patient complaining of fecal soilage. Denies flank pain or fever. OBJECTIVE: VITAL SIGNS: Vital signs are stable. He is afebrile. I's and O's -866 mL. Urine output 2200, clear dilute. ABDOMEN: Morbidly obese, protuberant. No CVA tenderness. : Benavides catheter adequately secured with clear dilute urine, moderate amount of soilage in diaper. PERTINENT LABORATORY DATA: White count 8.9, hemoglobin stable at 8.6. Creatinine today is 1.4, which is his baseline. IMPRESSION AND PLAN: 1. Mr. Rowland is an 88-year-old male with history of horseshoe kidney, history of right impacted ureteral calculi, status post ureteroscopy, postop day #1 status post cystoscopy, right ureteral stent removal yesterday, which he tolerated uneventfully. He has no significant issues status post stent pull, making good urine output, renal function stable at his baseline. Benavides catheter will be removed today. Continue his BPH medications. 2. History of prostate cancer, in remission. 3. History of chronic lymphocytic leukemia. 4. History of congestive heart failure. 5. History of subcapsular bleed. The patient is a poor candidate for anticoagulation. From urologic perspective, the patient can be discharged to nursing facility, rehabilitation per primary service discretion. It appears that the family is declining rehabilitation and has elected to take the patient home with home health, which I advised against because of his significant comorbidities. Never the less that is their desire. May discharge from urologic perspective. Job ID: [id number] [id number]
--- NOTE | 2019-04-24 09:53 | PDOC.HOSPP ---
- Subjective Encounter Date: 04/24/19 Subjective: Pt seen says has some sob and has some abdominal discomfort but has abdominal pain , Not in distress has bowel movement today - Objective Vital Signs & Weight: Vital Signs (12 hours) Temp Pulse Resp BP Pulse Ox 04/24/19 07:30 98.6 F 83 18 117/58 L 04/24/19 07:23 94 L 04/24/19 04:00 97.8 F 85 19 98/57 L 94 L Weight Admit Weight 238 lb Weight 212 lb 11.2 oz Most Recent Monitor Data Heart Rate from ECG 89 NIBP 113/54 NIBP BP-Mean 73 Respiration from ECG 19 SpO2 99 I&O: 04/23/19 04/24/19 04/25/19 06:59 06:59 06:59 Intake Total 1160 1340 Output Total 1825 2200 Balance -878 -685 Result Diagrams: 04/24/19 04:46 04/24/19 04:46 Additional Labs: Accuchecks 04/24/19 04/23/19 04/23/19 05:43 20:08 16:46 POC Glucose 136 H 147 H 171 H Hospitalist ROS - Review of Systems Constitutional: denies: fever Eyes: denies: pain ENT: denies: ear pain Respiratory: denies: cough Cardiovascular: denies: chest pain Gastrointestinal: reports: abdominal pain Musculoskeletal: denies: neck pain Neurological: denies: weakness - Medication Medications: Active Medications Generic Name Dose Route Start Last Admin Trade Name Freq PRN Reason Stop Dose Admin Albuterol/Ipratropium 3 ml 04/11/19 06:17 04/16/19 18:11 Duoneb NEB 3 ml [id number] PRN Administration SOB &/or Wheezing Allopurinol 300 mg 04/14/19 09:00 04/23/19 14:51 Zyloprim PO 300 mg DAILY BERNARDINO Administration Atorvastatin Calcium 20 mg 04/14/19 21:00 04/23/19 20:10 Lipitor PO 20 mg HS BERNARDINO Administration Carvedilol 3.125 mg 04/14/19 09:00 04/23/19 14:51 Coreg PO 3.125 mg DAILY BERNARDINO Administration Docusate Sodium 100 mg 04/21/19 21:00 04/23/19 20:10 Colace PO 100 mg BID BERNARDINO Administration Donepezil HCl 5 mg 04/14/19 21:00 04/21/19 21:06 Aricept PO 5 mg HS BERNARDINO Administration Dutasteride 0.5 mg 04/11/19 09:00 04/23/19 14:50 Avodart PO 0.5 mg DAILY BERNARDINO Administration Ferrous Sulfate 325 mg 04/21/19 17:00 04/23/19 18:17 Feosol PO 325 mg BID-WM BERNARDINO Administration Finasteride 5 mg 04/14/19 09:00 04/23/19 14:50 Proscar PO 5 mg DAILY BERNARDINO Administration Folic Acid 1 mg 04/14/19 09:00 04/23/19 14:50 Folvite PO 1 mg DAILY BERNARDINO Administration Gabapentin 100 mg 04/11/19 09:00 04/23/19 20:11 Neurontin PO 100 mg TID BERNARDINO Administration Melatonin 6 mg 04/11/19 21:00 04/23/19 20:11 Melatonin PO 6 mg HS BERNARDINO Administration Sertraline HCl 100 mg 04/11/19 09:00 04/23/19 20:11 Zoloft PO 100 mg BID BERNARDINO Administration Sodium Chloride 10 ml 04/10/19 09:00 04/23/19 20:11 Flush - Normal Saline IVF 10 ml Q12HR BERNARDINO Administration Tamsulosin HCl 0.4 mg 04/11/19 09:00 04/23/19 14:50 Flomax PO 0.4 mg DAILY BERNARDINO Administration - Exam General Appearance: awake alert Eye: anicteric sclera ENT: normocephalic atraumatic Neck: supple Heart: no murmur Respiratory: no wheezes Gastrointestinal: soft Extremities: no cyanosis Neurological: cranial nerve grossly intact Musculoskeletal: normal tone Psychiatric: normal affect Hosp A/P - Plan Hosp A/P Acute on chronic systolic (congestive) heart failure Continue lasix changed to PO , Continue Oxygen , Acute respiratory failure with hypoxemia and hypercapnea Pneumoniaand pl effusion Continue oxygen , continue nebs PRN UTI (urinary tract infection) with Horseshoe kidney and Nephrolithiasis and ureteral stone s/p laser lithotrypsy and stent exchange and s/p stent remove , s/p meropenuum , Diflucan , Voiding normal urine Anemia in CKD (chronic kidney disease) Continue iron currently stable UZMA with CKD creatinine mildly went up Lasix changed to po monitor creatinine CLL (chronic lymphocytic leukemia) Discussed with Dr Hampton No need Ibrutinib Coronary artery disease Currently Denies chest pain at present DM type 2 (diabetes mellitus, type 2) Continue to monitor blood sugar , Dyslipidemia H/O prostate cancer Continue flomax finastride , avodart Ischemic cardiomyopathy Continue lasix , coreg Parkinson disease Continue supportive care Functional Decline Continue PT evaluation Discussed with nursing staff in detail
[2019-04-24] MEDS: Tamsulosin HCl 0.4 MG CAP PO SCH (10:51)
[2019-04-24] MEDS: Gabapentin 100 MG CAP PO SCH ×3 (10:51→20:39)
[2019-04-24] MEDS: Ferrous Sulfate 325 MG TAB PO SCH ×2 (10:51→15:32)
[2019-04-24] MEDS: Folic Acid 1 MG TAB PO SCH (10:51)
[2019-04-24] MEDS: Dutasteride 0.5 MG CAP PO SCH (10:52)
[2019-04-24] MEDS: Docusate 100 MG CAP PO SCH ×2 (10:52→20:40)
[2019-04-24] MEDS: Allopurinol 300 MG TAB PO SCH (10:52)
[2019-04-24] MEDS: Finasteride 5 MG TAB PO SCH (10:52)
[2019-04-24] MEDS: Carvedilol 3.125 MG TAB PO SCH (10:52)
[2019-04-24] MEDS ORDERED: Furosemide 20 MG TAB PO SCH (14:00)
[2019-04-24] MEDS: traMADol HCl 50 MG TAB PO PRN (15:30)
[2019-04-24] MEDS: Furosemide 40 MG TAB PO SCH (15:32)
[2019-04-24] MEDS: Melatonin 3 MG TAB PO SCH (20:39)
[2019-04-24] MEDS: Atorvastatin Calcium 20 MG TAB PO SCH (20:39)
[2019-04-24] MEDS: Donepezil HCl 5 MG TAB PO SCH (20:39)
[2019-04-25 05:02] LABS: #Eosinphils 0.3 thou/uL (0.0-0.7); #Lymphocytes 1.7 thou/uL (1.20-3.40); #Monocytes 0.6 thou/uL (0.11-0.59); #Neutrophils 4.4 thou/uL (1.40-6.50); %Basophils 0.2 % (0.0-1.0); %Eosinophils 4.4 % (0.0-10.0); %Lymphocytes 23.7 % (21.0-51.0); %Monocytes 8.7 % (0.0-10.0); Hemoglobin 8.5 g/dL (14.0-18.0); Mean Corpuscular Hemoglobin 28.8 pg (27.0-31.0); Mean Corpuscular Volume 92.9 fL (78.0-98.0); Mean Platelet Volume 5.9 fL (7.4-10.4); Platelet Count 219 thou/uL (130-400); RBC Distribution Width 16.7 % (11.5-14.5); Red Blood Cell (RBC) Count 2.96 mill/uL (4.70-6.10); White Blood Cell (WBC) Count 7.1 thou/uL (4.8-10.8)
[2019-04-25 05:24] LABS: BUN (Urea Nitrogen) 36 mg/dL (8.4-25.7); Calc. Creatinine Clearance 57 mL/min (70-130); Calcium 8.9 mg/dL (7.8-10.44); Estimated GFR-MDRD 53; Glucose 91 mg/dL (83-110)
[2019-04-25 05:33] LABS: Anion Gap 12 mmol/L (10-20); Carbon Dioxide 39 mmol/L (23-31); Chloride 98 mmol/L (98-107); Potassium 3.7 mmol/L (3.5-5.1); Sodium 145 mmol/L (136-145)
[2019-04-25] MEDS ORDERED: Furosemide 40 MG TAB PO SCH (07:30)
--- NOTE | 2019-04-25 07:45 | PRG ---
DATE OF SERVICE: 04/25/2019 SUBJECTIVE: The patient is resting, easily arousable. Denies chest pain, shortness of breath, flank or abdominal pain. OBJECTIVE: VITAL SIGNS: Stable. He is afebrile. ABDOMEN: Morbidly obese, protuberant. There is no rigidity. No rebound. GENITOURINARY: Diaper in place. Urine output with no significant hematuria of concern. EXTREMITIES: Chronic edema noted. LABORATORY DATA: White count is 7; hemoglobin 8.5, stable; and platelet 219. Creatinine today is 1.2. IMPRESSION AND PLAN: 1. Mr. Rowland is an 88-year-old frail male with history of congestive heart failure, chronic lymphocytic leukemia, prostate cancer in remission. 2. History of horseshoe kidney with bilateral renal stone. 3. History of right impacted ureteral calculi, status post laser lithotripsy, stent placement. 4. Postop day #2, status post right stent pull, which he is tolerating uneventfully. Renal function is stable, the patient can be discharged to facility or his private residence per family's request with Home Health. Followup with in couple of weeks. Anticipate he can be discharged to his private residence today per family's request. Follow-up appointment in chart, will sign off. [facility] covering me this weekend Job ID: [id number] MTDD
[2019-04-25] MEDS: Allopurinol 300 MG TAB PO SCH (08:36)
[2019-04-25] MEDS: Carvedilol 3.125 MG TAB PO SCH (08:36)
[2019-04-25] MEDS: Ferrous Sulfate 325 MG TAB PO SCH ×2 (08:36→18:03)
[2019-04-25] MEDS: Dutasteride 0.5 MG CAP PO SCH (08:36)
[2019-04-25] MEDS: Tamsulosin HCl 0.4 MG CAP PO SCH (08:37)
[2019-04-25] MEDS: Gabapentin 100 MG CAP PO SCH ×2 (08:37→14:59)
[2019-04-25] MEDS: Docusate 100 MG CAP PO SCH (08:37)
[2019-04-25] MEDS: Furosemide 40 MG TAB PO SCH ×2 (08:37→14:59)
[2019-04-25] MEDS: Folic Acid 1 MG TAB PO SCH (08:37)
[2019-04-25] MEDS: Finasteride 5 MG TAB PO SCH (08:37)
[2019-04-25] MEDS: traMADol HCl 50 MG TAB PO PRN (15:00)
[2019-04-25 15:11] VITALS: BP 110/56; TEMP 97.7
--- NOTE | 2019-04-26 01:50 | DIS ---
DATE OF ADMISSION: 04/09/2019 DATE OF DISCHARGE: 04/25/2019 DISCHARGE DIAGNOSES: 1. Acute on chronic systolic congestive heart failure. 2. Acute respiratory failure with hypoxia, hypercapnia secondary to pneumonia and pleural effusion. 3. Urinary tract infection with horseshoe kidney, nephrolithiasis, ureteral stent placement and removal. 4. Right subcapsular hematoma. 5. Anemia of chronic disease. 6. Chronic lymphocytic leukemia. 7. Coronary artery disease. 8. Diabetes mellitus. 9. Dyslipidemia. 10. History of prostate cancer. 11. Ischemic cardiomyopathy. 12. Parkinson disease. 13. Functional decline. PHYSICAL EXAMINATION: VITAL SIGNS: Blood pressure 110/56, temperature 97.7, pulse 84, respirations 16, oxygen saturation 97%. GENERAL: The patient is awake, in no distress. Conjunctiva normal. Oral mucosa moist. NECK: Supple. No JVD. No lymphadenopathy. CHEST: Decreased air entry bilateral lower lung carlin. ABDOMEN: Mildly distended. Bowel sounds audible. Minimal edema of feet positive. DISCHARGE LABORATORY DATA: CBC unremarkable. BMP unremarkable. Blood glucose 120. HOSPITAL SUMMARY: The patient was admitted on 04/09/2019 with generalized weakness, abdominal pain and not feeling well. The patient was admitted with possible diagnosis of pneumonia and possible UTI. The patient has a horseshoe kidney and ureteral stone and stent placement and exchange. CT showed subcapsular hematoma. The patient's oral anticoagulation was held and patient due to respiratory difficulty, was transferred to ICU. The patient has been treated with diuretics and was transferred out of ICU. The patient was evaluated by Cardiology, Pulmonology and Dr. Mccann, Oncologist, Palliative Care, Dr. Alfred, Infectious Disease and Urology. The patient currently at his baseline with 2 to 3 L oxygen at home, tolerating a diet. Right ureteral stent removed by Urology. However, the patient not recommended oral anticoagulation due to subcapsular hematoma. The patient also not recommended to continue chemotherapy for CLL. The patient currently at his baseline, both and son wanted to be discharged home with home health physical therapy. Patient currently stable, being discharged home. However, son requested to be started on ANN inhibitor. However, due to patient's low blood pressure borderline, ANN inhibitor was held and advised to follow up outpatient with Cardiology and once patient's blood pressure improved, ANN inhibitor can be started. The patient is discharged in a stable condition. Plan discussed with the son in detail. Also, I had multiple discussions with the patient's son during hospital stay. Job ID: [id number]
--- NOTE | 2019-04-28 04:13 | PQF ---
ANGI YING KATHY DO [id number] O-[id number] CLINICAL DOCUMENTATION CLARIFICATION FORM: POST DISCHARGE Addendum to original discharge summary date: ____ Late entry note date: __ DATE: 04/28/19 ATTN: Dagmar Tejada Please exercise your independent, professional judgment in responding to the clarification form. Clinical indicators are provided on the bottom of this form for your review Please check appropriate box(es): [ ] Sepsis due to Pneumonia and UTI [ ] SIRS due to non-infectious process (please specify etiology) [ ] with organ dysfunction [ ] without organ dysfunction [ ] Severe sepsis with acute organ dysfunction of: (Examples: respiratory failure, encephalopathy, acute kidney failure, other) [ ] Septic Shock [ ] Localized infection without sepsis [ ] Other diagnosis [ ] Unable to determine In addition, please specify: Present on Admission (POA): [ ] Yes [ ] No [ ] Unable to determine For continuity of documentation, please document condition throughout progress notes and discharge summary. Thank You. CLINICAL INDICATORS - SIGNS / SYMPTOMS / LABS ED Notes 04/09 "patient presented for evaluation of left arm swelling, edema and diarrhea" ED Notes 04/09 "CC:weakness and decreased appetite" HP 04/09 "imaging studies showed PNA but the patient is denying any cough or fever" HP 04/09 "urinalysis shows questionable UTI" HP 04/09 "altered mental status" Labs: Lactic acid 04/09=2.7 RISK FACTORS ED Notes 04/09-88 years old male ED Notes 04/09-HTN ED Notes 04/09-CAD ED Notes 04/09-Horseshoe kidney ED Notes 04/09-HLD ED Notes 04/09-DM HP 04/09-s/p ureteral stent placement HP 04/09-Prostate cancer PN 04/24-UTI PN 04/24-PNA TREATMENTS: HP 04/09-Sepsis protocol initiated HP 04/09-Urinalysis HP 04/09-Chest Xray 04/09-Blood culture HP 04/09-IVF OP Note 04/23-cystoscopy with stent removal SEP 01-Rocephin 1gm IV SEP 01-Vancomycin 1gm IV (This form is maintained as a part of the permanent medical record) 2014 [employer] All Rights Reserved Michael [email or web address] [not provided] MTDD
--- NOTE | 2019-04-28 04:16 | PQF ---
ANGI YING KATHY DO [id number] O-259 [id number] CLINICAL DOCUMENTATION CLARIFICATION FORM: POST DISCHARGE Addendum to original discharge summary date: ____ Late entry note date: __ DATE: 04/28/19 ATTN: Dagmar Tejada Please exercise your independent, professional judgment in responding to the clarification form. Clinical indicators are provided on the bottom of this form for your review Please check appropriate box(es): [ ] Sepsis due to Pneumonia and UTI [ ] SIRS due to non-infectious process (please specify etiology) [ ] with organ dysfunction [ ] without organ dysfunction [ ] Severe sepsis with acute organ dysfunction of: (Examples: respiratory failure, encephalopathy, acute kidney failure, other) [ ] Septic Shock [ ] Localized infection without sepsis [ ] Other diagnosis [ ] Unable to determine In addition, please specify: Present on Admission (POA): [ ] Yes [ ] No [ ] Unable to determine For continuity of documentation, please document condition throughout progress notes and discharge summary. Thank You. CLINICAL INDICATORS - SIGNS / SYMPTOMS / LABS ED Notes 04/09 "patient presented for evaluation of left arm swelling, edema and diarrhea" ED Notes 04/09 "CC:weakness and decreased appetite" HP 04/09 "imaging studies showed PNA but the patient is denying any cough or fever" HP 04/09 "urinalysis shows questionable UTI" HP 04/09 "altered mental status" Labs: Lactic acid 04/09=2.7 RISK FACTORS ED Notes 04/09-88 years old male ED Notes 04/09-HTN ED Notes 04/09-CAD ED Notes 04/09-Horseshoe kidney ED Notes 04/09-HLD ED Notes 04/09-DM HP 04/09-s/p ureteral stent placement HP 04/09-Prostate cancer PN 04/24-UTI PN 04/24-PNA TREATMENTS: HP 04/09-Sepsis protocol initiated HP 04/09-Urinalysis HP 04/09-Chest Xray 04/09-Blood culture HP 04/09-IVF OP Note 04/23-cystoscopy with stent removal SEP 01-Rocephin 1gm IV SEP 01-Vancomycin 1gm IV (This form is maintained as a part of the permanent medical record) 2014 [employer] All Rights Reserved Michael [not provided] MTDD
--- NOTE | 2019-05-02 03:39 | PQF ---
ANGI YING MUHAMMAD [id number] O-[id number] CLINICAL DOCUMENTATION CLARIFICATION FORM: POST DISCHARGE Addendum to original discharge summary date: ____ Late entry note date: __ DATE: 05/02/19 ATTN: Jeyson Matt Please exercise your independent, professional judgment in responding to the clarification form. Clinical indicators are provided on the bottom of this form for your review Please check appropriate box(es): [ ] Sepsis due to Pneumonia and UTI [ ] SIRS due to non-infectious process (please specify etiology) [ ] with organ dysfunction [ ] without organ dysfunction [ ] Severe sepsis with acute organ dysfunction of: (Examples: respiratory failure, encephalopathy, acute kidney failure, other) [ ] Septic Shock [ ] Localized infection without sepsis [ ] Other diagnosis [ ] Unable to determine In addition, please specify: Present on Admission (POA): [ ] Yes [ ] No [ ] Unable to determine For continuity of documentation, please document condition throughout progress notes and discharge summary. Thank You. CLINICAL INDICATORS - SIGNS / SYMPTOMS / LABS ED Notes 04/09 "patient presented for evaluation of left arm swelling, edema and diarrhea" ED Notes 04/09 "CC:weakness and decreased appetite" HP 04/09 "imaging studies showed PNA but the patient is denying any cough or fever" HP 04/09 "urinalysis shows questionable UTI" HP 04/09 "altered mental status" Labs: Lactic acid 04/09=2.7 RISK FACTORS ED Notes 04/09-88 years old male ED Notes 04/09-HTN ED Notes 04/09-CAD ED Notes 04/09-Horseshoe kidney ED Notes 04/09-HLD ED Notes 04/09-DM HP 04/09-s/p ureteral stent placement HP 04/09-Prostate cancer PN 04/24-UTI PN 04/24-PNA TREATMENTS: HP 04/09-Sepsis protocol initiated HP 04/09-Urinalysis HP 04/09-Chest Xray 04/09-Blood culture HP 04/09-IVF OP Note 04/23-cystoscopy with stent removal SEP 01-Rocephin 1gm IV SEP 01-Vancomycin 1gm IV (This form is maintained as a part of the permanent medical record) 2014 [email or web address] All Rights Reserved Michael [email or web address] [not provided] MTDD
== END 2019-04-25 19:20 | disposition home health service (06) | DRG 291 ==
LOC: ERS 13:48 → 2NO 20:49 → IMCU/EMU 04-15 23:40 → 2NO 04-20 22:46
PROVIDERS: ADMIT Internal Medicine; ATTEND Internal Medicine
PROC: 02HV33Z Insertion of Infusion Device into Superior Vena Cava, Percutaneous Approach (ICD-10-PCS; 2019-04-09)
PROC: 3E02340 Introduction of Influenza Vaccine into Muscle, Percutaneous Approach (ICD-10-PCS; 2019-04-10)
PROC: 5A09457 Assistance with Respiratory Ventilation, 24-96 Consecutive Hours, Continuous Positive Airway Pressure (ICD-10-PCS; 2019-04-15)
PROC: 0W9B3ZX Drainage of Left Pleural Cavity, Percutaneous Approach, Diagnostic (ICD-10-PCS; principal; 2019-04-16)
PROC: 0TP98DZ Removal of Intraluminal Device from Ureter, Via Natural or Artificial Opening Endoscopic (ICD-10-PCS; 2019-04-23)
DX: I13.2 Hypertensive heart and chronic kidney disease with heart failure and with stage 5 chronic kidney disease, or end stage renal disease (principal); J18.9 Pneumonia, unspecified organism; I50.23 Acute on chronic systolic (congestive) heart failure; J96.21 Acute and chronic respiratory failure with hypoxia; Z23 Encounter for immunization; N18.6 End stage renal disease; J96.22 Acute and chronic respiratory failure with hypercapnia; C91.90 Lymphoid leukemia, unspecified not having achieved remission; N17.9 Acute kidney failure, unspecified; J90 Pleural effusion, not elsewhere classified; N13.6 Pyonephrosis; I25.10 Atherosclerotic heart disease of native coronary artery without angina pectoris; D53.9 Nutritional anemia, unspecified; C61 Malignant neoplasm of prostate; E78.5 Hyperlipidemia, unspecified; F32.9 Major depressive disorder, single episode, unspecified; E11.22 Type 2 diabetes mellitus with diabetic chronic kidney disease; E66.9 Obesity, unspecified; G20 Parkinson's disease; I48.91 Unspecified atrial fibrillation; I25.5 Ischemic cardiomyopathy; E88.09 Other disorders of plasma-protein metabolism, not elsewhere classified; D63.1 Anemia in chronic kidney disease; E87.6 Hypokalemia; D50.9 Iron deficiency anemia, unspecified; R62.7 Adult failure to thrive; G47.33 Obstructive sleep apnea (adult) (pediatric); K76.89 Other specified diseases of liver; Z99.2 Dependence on renal dialysis; Z87.891 Personal history of nicotine dependence; Z91.018 Allergy to other foods; Z79.01 Long term (current) use of anticoagulants; Z79.899 Other long term (current) drug therapy; Z68.32 Body mass index [BMI] 32.0-32.9, adult; Z87.442 Personal history of urinary calculi; Z95.810 Presence of automatic (implantable) cardiac defibrillator; Q63.1 Lobulated, fused and horseshoe kidney; Z87.440 Personal history of urinary (tract) infections; Z90.49 Acquired absence of other specified parts of digestive tract
CPT/HCPCS: 36415; 36416; 71045; 71260; 74177; 80048; 80053; 81003; 81015; 82150; 82550; 82805; 82945; 83605; 83615; 83735; 83880; 84145; 84156; 84157; 84478; 84484; 85025; 85060; 87070; 87086; 87116; 87205; 87206; 87324; 87449; 88112; 88305; 89051; 93005; 93010; 93306; 94640; 94660; 94760; 96365; 96366; 96367; 96375; J0456; J0692; J0696; J1450; J1940; J2185; J2704; J3370; J3490; J7050; J7620; P9047; Q9967

== ENCOUNTER 2019-05-01 11:55 | Emergency (ER) | payer MEDICARE, OTHER ==
[2019-05-01 12:27] LABS: Bilirubin Negative (Negative); Blood, Urine 2+ (Negative); Clarity Clear (Clear); Glucose, Urine (Dipstick) Normal (Negative); Leukocyte 75 Leu/uL (Negative); Nitrite Negative (Negative); Protein, Urine (Dipstick) 50 mg/dL (Neg-Trace); RBC/HPF Greater than 50 HPF (0-3); Squamous Epithelial 0-3 HPF (0-3); Urobilinogen Normal mg/dL (Less than 2)
[2019-05-01 12:28] LABS: Bacteria/HPF 1+ HPF (None Seen)
[2019-05-01 12:51] LABS: #Eosinphils 0.5 thou/uL (0.0-0.7); #Monocytes 0.5 thou/uL (0.11-0.59); #Neutrophils 5.2 thou/uL (1.40-6.50); %Basophils 0.2 % (0.0-1.0); %Eosinophils 6.5 % (0.0-10.0); %Lymphocytes 24.5 % (21.0-51.0); %Monocytes 6.3 % (0.0-10.0); %Neutrophils 62.5 % (42.0-75.0); Hemoglobin 10.1 g/dL (14.0-18.0); Mean Corpuscular HGB CONC 31.6 g/dL (32.0-36.0); Mean Corpuscular Hemoglobin 29.5 pg (27.0-31.0); Mean Corpuscular Volume 93.3 fL (78.0-98.0); Mean Platelet Volume 6.6 fL (7.4-10.4); Platelet Count 312 thou/uL (130-400); RBC Distribution Width 17.6 % (11.5-14.5); Red Blood Cell (RBC) Count 3.42 mill/uL (4.70-6.10); White Blood Cell (WBC) Count 8.2 thou/uL (4.8-10.8)
[2019-05-01 13:58] LABS: Albumin 2.8 g/dL (3.4-4.8)
[2019-05-01 13:59] LABS: Chloride 104 mmol/L (98-107); Potassium 3.9 mmol/L (3.5-5.1); Sodium 143 mmol/L (136-145)
[2019-05-01 14:00] LABS: Glucose 120 mg/dL (83-110)
[2019-05-01 14:01] LABS: Globulin 4.1 g/dL (2.4-3.5); Protein, Total 6.9 g/dL (5.8-8.1)
[2019-05-01 14:02] LABS: Anion Gap 11 mmol/L (10-20); Bilirubin, Total 0.4 mg/dL (0.2-1.2); Carbon Dioxide 32 mmol/L (23-31)
[2019-05-01 14:03] LABS: Alkaline Phosphatase 76 U/L (40-110)
[2019-05-01 14:04] LABS: Calc. Creatinine Clearance 0 mL/min (70-130); Estimated GFR-MDRD 53
[2019-05-01 14:05] LABS: BUN (Urea Nitrogen) 29 mg/dL (8.4-25.7)
[2019-05-01 14:06] LABS: ALT (SGPT) Less than 7 U/L (8-55); AST (SGOT) 33 U/L (5-34)
[2019-05-01] MEDS ORDERED: Iopamidol-370 76% 500 ML 1 ML ONE (15:59)
--- NOTE | 2019-05-01 16:05 | CT ---
EXAM: CT ABDOMEN AND PELVIS HISTORY: Flank swelling. Pain. Note is long the left flank, not. Last night. COMPARISON: 04/09/2019, 04/03/2018, 11/18/2014 Procedure: Multiple contiguous axial images were obtained and a CT of the abdomen and pelvis with IV contrast. C oronal reformats were performed. FINDINGS: Lower Chest: Redemonstration of bilateral effusions with adjacent lung parenchymal consolidation due to atelectasis or pneumonia. There is a soft tissue mass in the middle lobe, abutting the fissure measuring 2.7 x 2.8 cm. Central calcification is noted. Lesion is unchanged from October 2014 Vessels: Atherosclerosis of a nonaneurysmal aorta. Heart: Cardiomegaly. No significant pericardial fluid Abdomen: Portal vein:Patent Gallbladder: Surgically absent Liver: within normal limits. Pancreas: within normal limits. Spleen: within normal limits. Adrenals: within normal limits. Kidneys: Redemonstration of horseshoe kidneys. There are large complex cyst emanating from the upper pole right kidney. Stable complex subcapsular fluid along the lower pole of the left and right kidney. There are multiple calcifications which are in the bilateral renal parenchyma as well as the bilateral intrarenal collecting system. Interval removal of previously noted right-sided ureteral stent. No evidence of high-grade hydronephrosis. Visualized ureters have a normal caliber. No hydrour eter, periureteral fat stranding or ureterolithiasis. Peritoneum: No ascites or free air, no fluid collection. Bowel: Limited evaluation due to the lack of oral contrast administration. No evidence of bowel obstr uction. Ileocecal junction is unremarkable. Normal caliber appendix. Scattered fecal material in a nondistended, nondilated colon. Diverticulosis, without evidence of diverticulitis. Mesentery and Retroperitoneum: No enlarged mesenteric or retroperitoneal lymph nodes. Abdominal Wall: within normal limits. Pelvis: Reproductive Organs: Mildly enlarged prostate gland, measuring 5.3 x 4.6 cm Pelvis: No mass, lymphadenopathy, free air or free fluid. Bladder: within normal limits. Bones: within normal limits. IMPRESSION: 1. Redemonstration of bilateral pleural effusions with parenchymal changes. 2. Redemonstration of horseshoe kidney. Complex cystic lesions are redemonstrated. Additionally, stab le subcapsular fluid, complex 3. Interval removal of a right ureteral stent. No evidence of obstructive uropathy. Stable intrarenal calculi.
[2019-05-01 17:37] LABS: INR-International Normal Ratio 1.2; PTT 30.1 SEC (22.9-36.1); Prothrombin Time 14.7 SEC (12.0-14.7)
--- NOTE | 2019-05-01 17:37 | RAD ---
EXAM: 4 views of the left knee HISTORY: Knee pain COMPARISON: None FINDINGS: A small knee effusion is seen. There is no evidence of acute fracture or dislocation. Moder ate tricompartmental degenerative changes are seen. No soft tissue swelling is present. IMPRESSION: Moderate left knee osteoarthritis without acute osseous abnormality.
== END 2019-05-01 18:08 | disposition short-term general hospital (02) ==
LOC: ERS 11:55
DX: R19.00 Intra-abdominal and pelvic swelling, mass and lump, unspecified site (principal); I25.10 Atherosclerotic heart disease of native coronary artery without angina pectoris; I11.0 Hypertensive heart disease with heart failure; I50.9 Heart failure, unspecified; D53.9 Nutritional anemia, unspecified; E11.9 Type 2 diabetes mellitus without complications; E78.5 Hyperlipidemia, unspecified; J45.909 Unspecified asthma, uncomplicated; F32.9 Major depressive disorder, single episode, unspecified; Z87.891 Personal history of nicotine dependence; Z79.899 Other long term (current) drug therapy
CPT/HCPCS: 36415; 74177; 80053; 81003; 81015; 85025; 85610; 85730; 87086; 94760; Q9967

== ENCOUNTER 2019-08-26 12:57 | Inpatient (IN) | payer OTHER, MEDICARE ==
--- NOTE | 2019-08-26 13:38 | RAD ---
Exam: Chest one view: HISTORY: Cough COMPARISON: 04/17/2019 FINDINGS: Stable cardiomegaly with left pleural effusion and left lower lobe partial atelectatic changes. Left ICD. 2.5 cm diameter right lower lobe pulmonary nodule, which appears stable. There is progressive left pleural effusion and pleural and parenchymal opacity changes when compared to the prior study. IMPRESSION: Worsening left pleural effusion and associated parenchymal change with very little residual aerated l eft lung. Stable right lower pulmonary nodule.
[2019-08-26 13:57] LABS: #Eosinphils 0.1 thou/uL (0.0-0.7); #Monocytes 0.3 thou/uL (0.11-0.59); #Neutrophils 3.3 thou/uL (1.40-6.50); %Basophils 0.6 % (0.0-1.0); %Eosinophils 1.3 % (0.0-10.0); %Lymphocytes 35.3 % (21.0-51.0); %Monocytes 5.7 % (0.0-10.0); %Neutrophils 57.2 % (42.0-75.0); Hemoglobin 13.5 g/dL (14.0-18.0); Mean Corpuscular HGB CONC 31.7 g/dL (32.0-36.0); Mean Corpuscular Hemoglobin 32.7 pg (27.0-31.0); Mean Platelet Volume 8.5 fL (7.4-10.4); Platelet Count 161 thou/uL (130-400); RBC Distribution Width 14.4 % (11.5-14.5); Red Blood Cell (RBC) Count 4.14 mill/uL (4.70-6.10); White Blood Cell (WBC) Count 5.7 thou/uL (4.8-10.8)
[2019-08-26 14:13] LABS: ALT (SGPT) 19 U/L (8-55); AST (SGOT) 28 U/L (5-34); Albumin 3.8 g/dL (3.4-4.8); Alkaline Phosphatase 80 U/L (40-110); Anion Gap 15 mmol/L (10-20); BUN (Urea Nitrogen) 24 mg/dL (8.4-25.7); Bilirubin, Total 0.6 mg/dL (0.2-1.2); Calc. Creatinine Clearance 0 mL/min (70-130); Calcium 9.1 mg/dL (7.8-10.44); Carbon Dioxide 26 mmol/L (23-31); Chloride 108 mmol/L (98-107); Estimated GFR-MDRD 31; Globulin 3.3 g/dL (2.4-3.5); Glucose 102 mg/dL (83-110); Potassium 4.6 mmol/L (3.5-5.1); Protein, Total 7.1 g/dL (5.8-8.1); Sodium 144 mmol/L (136-145)
[2019-08-26 14:35] LABS: CKMB 1.1 ng/mL (0-6.6)
[2019-08-26] MEDS ORDERED: Aspirin Chewable 81 MG TAB ONE (14:50)
[2019-08-26 16:11] LABS: Bacteria/HPF None Seen HPF (None Seen); Bilirubin Negative (Negative); Blood, Urine 2+ (Negative); Clarity Clear (Clear); Glucose, Urine (Dipstick) Normal (Negative); Leukocyte 75 Leu/uL (Negative); Nitrite Negative (Negative); Protein, Urine (Dipstick) 50 mg/dL (Neg-Trace); RBC/HPF Greater than 50 HPF (0-3); Squamous Epithelial 0-3 HPF (0-3)
[2019-08-26] MEDS ORDERED: Acetaminophen 325 MG TAB PO PRN (16:21)
[2019-08-26] MEDS ORDERED: Senokot S 8.6-50 MG TAB PO PRN (16:21)
[2019-08-26] MEDS: Ferrous Sulfate 325 MG TAB PO SCH (18:00)
[2019-08-26 18:11] LABS: Troponin I 0.048 ng/mL (< 0.028)
--- NOTE | 2019-08-26 20:07 | HP ---
CHIEF COMPLAINT: Shortness of breath. HISTORY OF PRESENT ILLNESS: The patient is an 88-year-old male with a past medical history of essential tremors, ischemic cardiomyopathy with pacemaker, prostate cancer, however, was minimum according to the family, diabetes type 2, horseshoe kidney, and recently diagnosed with CLL, currently on no treatment. The patient has had extensive urological intervention in the past, especially nephrolithiasis associated with the horseshoe kidney. He presents today with complaints of shortness of breath and just feeling tired. The patient's family is at the bedside, who states that for the past day or two, he has been feeling unwell and today, the son noted that he was hypoxic on room air. His sats were in the 86%. The patient states that he normally uses oxygen at nighttime. Only during the day, he does not require any oxygenation. He denies any chest pain or chest tightness, any nausea or vomiting, however, does complain of some lower abdominal pain. He denies any diarrhea currently, however, had about 2 bouts of diarrhea in the past couple of weeks. Per family, he did have a low-grade fever. No cough. The patient has been in the hospital multiple times. He has had thoracentesis x1, this was back 04/17/2019. His culture was negative, cytology just indicated lymphocytes and mesothelial cells and neutrophils. Per documentation note, stated that most likely this was secondary to his malnutrition status and also secondary due to his nephrotic syndrome. PAST MEDICAL HISTORY: The patient has a history of: 1. Diabetes type 2. 2. CLL, not on any medications. 3. Nephrolithiasis. 4. Horseshoe kidney. 5. Essential tremors. 6. He has had urosepsis. 7. Subscapular hematoma in the horseshoe kidney that is why he is off anticoagulation. 8. CHF. 9. AICD placement. 10. Hypoalbuminemia. PAST SURGICAL HISTORY: 1. He has had a cholecystectomy. 2. He has had a nephrolithiasis with stenting. Currently, he does not have any stents. 3. Laser treatment, unknown where. SOCIAL HISTORY: He has been living with his son and his . He is retired. Never smoked. Did not drink. He is a full code, I did discuss this in front of the son and the and the patient. ALLERGIES: NO KNOWN DRUG ALLERGIES. MEDICATIONS: 1. He is on allopurinol 300 mg daily. 2. Carvedilol 3.125 daily. 3. He is on Aricept 5 mg daily. 4. He is on Avodart 0.5 mg daily. 5. He is on iron 325 daily. 6. He is on finasteride 5 mg daily. 7. He is on folic acid one p.o. daily. 8. He is on gabapentin 100 mg t.i.d. 9. He is on melatonin 6 mg at bedtime. 10. He is on MiraLAX 17 g p.o. daily. 11. He is on Florastor 250 mg daily. 12. He is on sertraline 100 mg daily. 13. He is on simvastatin 40 mg at bedtime. 14. He is on Flomax 0.4 mg daily. 15. He is on Topamax 25 mg daily. REVIEW OF SYSTEMS: All negative except for the ones mentioned above in the HPI. PHYSICAL EXAMINATION: VITAL SIGNS: Temperature 97.8, pulse 91, respirations 18, 96% on 2 L, blood pressure 130/71. GENERAL: He is awake, alert, and oriented x3. Does not appear in distress. He is lying almost flat in bed and has 2 L of oxygen and able to speak complete sentences. CV: S1 and S2 present. No murmurs heard. LUNGS: He has decreased breath sounds to left lower lung area compared to the right lower lung area. ABDOMEN: Soft. Bowel sounds are present x2. He does have pain upon palpation to his right lower abdominal area and also to his left abdominal area. EXTREMITIES: He does have mild 1+ lower extremity edema and chronic venous changes. NEUROVASCULAR: No focal deficits noted. SKIN: He has some chronic changes to his lower extremities, otherwise pretty benign. LABORATORY RESULTS: WBCs of 5.7, hemoglobin of 13.5, hematocrit of 42.7, his platelets are 161. He has no neutrophils. Chemistries; sodium of 144, potassium of 4.6, BUN of 24, creatinine of 2.03. His troponin was 0.042, then went up to 0.048. His BNP was 576. He did have a chest x-ray which appears that he has significant left-sided pleural effusion and also, he has a stable right lower pulmonary nodule. ASSESSMENT AND PLAN: The patient is an 88-year-old male who presents to the hospital with complaints of shortness of breath and hypoxia. 1. Acute hypoxic respiratory failure. The patient's oxygen saturations in room air at home were around 86 per family. He normally wears oxygen at night and does not wear during the daytime. Upon examining the patient's chest x-ray, appears that he has significant pleural effusion of the left lung area. We will go ahead and consult Pulmonology and go ahead and do a thoracentesis. He currently does not require urgent thoracentesis. He is very stable and his oxygen saturation on 2 L is about 97% to 98% and he is able to speak complete sentences and does not appear to be in any distress. We will check the fluid for protein and also cytology and also cell count. 2. Acute kidney injury and chronic kidney disease. Family states that he has not been eating or drinking very well for the past couple of days. He initially was supposed to be on 40 mg of diuretics twice a day, however, he has only been taking 20 mg twice a day. Family states that he has not been having any issues urinating. 3. Nausea and vomiting. This was mentioned in the ER note, however, the patient denies any vomiting or any nausea. He does have some abdominal pain, which is lower abdominal area. He recently had a CT scan done in April of 2018, which indicated some he has a horseshoe kidney. Also, he had some subscapular findings along the lower pole of the left and right kidney and this was concerning for possible bleed. Also, he had no high-grade hydronephrosis. He had no ascites at that time. Nothing significant was noted. If he continues to have abdominal pain tomorrow, I will go ahead and get a CAT scan. Again, he does not have a white count, he does not have any left shift. I do not believe there is any infectious etiology for this patient currently. 4. Systolic heart failure. Currently compensated. He does have an elevated BNP; however, he clinically appears well and most likely, his shortness of breath is related to his left-sided pleural effusion. We will continue to monitor him carefully. 5. Deep vein thrombosis prophylaxis. We will put the patient on SCDs. We will get Physical Therapy and Occupational Therapy to evaluate this patient. Hopefully once we removed his pleural effusion, he will be discharged home soon. Job ID: [id number]
[2019-08-26] MEDS: Melatonin 3 MG TAB PO SCH (22:23)
[2019-08-26] MEDS: Gabapentin 100 MG CAP PO SCH (22:23)
[2019-08-26] MEDS: Donepezil HCl 5 MG TAB PO SCH (22:23)
[2019-08-26] MEDS: Simvastatin 40 MG TAB PO SCH (22:24)
[2019-08-27 05:15] LABS: #Basophils 0.1 thou/uL (0.0-0.2); #Eosinphils 0.2 thou/uL (0.0-0.7); #Lymphocytes 2.3 thou/uL (1.20-3.40); #Monocytes 0.5 thou/uL (0.11-0.59); #Neutrophils 3.3 thou/uL (1.40-6.50); %Basophils 0.9 % (0.0-1.0); %Eosinophils 2.5 % (0.0-10.0); %Lymphocytes 36.5 % (21.0-51.0); %Monocytes 7.2 % (0.0-10.0); %Neutrophils 52.8 % (42.0-75.0); Hemoglobin 12.5 g/dL (14.0-18.0); Mean Corpuscular HGB CONC 32.2 g/dL (32.0-36.0); Mean Corpuscular Hemoglobin 33.1 pg (27.0-31.0); Mean Platelet Volume 7.9 fL (7.4-10.4); Platelet Count 151 thou/uL (130-400); RBC Distribution Width 14.3 % (11.5-14.5); Red Blood Cell (RBC) Count 3.77 mill/uL (4.70-6.10); White Blood Cell (WBC) Count 6.2 thou/uL (4.8-10.8)
[2019-08-27 05:25] LABS: Anion Gap 10 mmol/L (10-20); BUN (Urea Nitrogen) 29 mg/dL (8.4-25.7); Calc. Creatinine Clearance 40 mL/min (70-130); Calcium 9.2 mg/dL (7.8-10.44); Carbon Dioxide 26 mmol/L (23-31); Chloride 109 mmol/L (98-107); Estimated GFR-MDRD 37; Glucose 78 mg/dL (83-110); Potassium 4.2 mmol/L (3.5-5.1); Sodium 141 mmol/L (136-145)
[2019-08-27] MEDS ORDERED: FLU VACC TS2019-20(65YR UP)/PF 180 MCG/0.5 ML SYRINGE IM ONE (09:00)
[2019-08-27] MEDS: Gabapentin 100 MG CAP PO SCH ×3 (09:53→22:13)
[2019-08-27] MEDS: Topiramate 25 MG TAB PO SCH (09:53)
[2019-08-27] MEDS: Folic Acid 1 MG TAB PO SCH (09:53)
[2019-08-27] MEDS: Dutasteride 0.5 MG CAP PO SCH (09:53)
[2019-08-27] MEDS: Finasteride 5 MG TAB PO SCH (09:53)
[2019-08-27] MEDS: Saccharomyces boulardii 250 MG CAP PO SCH (09:53)
[2019-08-27] MEDS: Carvedilol 3.125 MG TAB PO SCH (09:53)
[2019-08-27] MEDS: Polyethylene Glycol 3350 17 GM Packet PO SCH (09:53)
[2019-08-27] MEDS: Allopurinol 300 MG TAB PO SCH (09:53)
[2019-08-27] MEDS: Ferrous Sulfate 325 MG TAB PO SCH ×2 (09:53→18:07)
[2019-08-27] MEDS: Tamsulosin HCl 0.4 MG CAP PO SCH (09:53)
[2019-08-27 11:49] VITALS: BMI 29.6
[2019-08-27 11:49] LABS: RBC Count-Automated (BF) 28992 /cumm; WBC/Nucleated-Auto (BF) 1059 uL
[2019-08-27 11:54] LABS: Pleural Fluid, Protein 3.8 g/dL
--- NOTE | 2019-08-27 12:04 | OP ---
DATE OF PROCEDURE: 08/27/2019 PROCEDURE PERFORMED: Thoracentesis. INDICATION: Pleural effusion. DESCRIPTION OF PROCEDURE: After informed consent, the left posterior thorax was cleaned with chlorhexidine. 1% Xylocaine was infiltrated into the left 9th intercostal space in the midscapular area. Pleural cavity was entered in, 20 mL of sanguinous fluid was removed. Thereafter, using an 8-[place] catheter, a total of 1900 mL of fluid was removed without any difficulty. The patient tolerated the procedure well. Effusion will be sent for appropriate studies including cytology and culture. Job ID: [id number]
--- NOTE | 2019-08-27 12:14 | CON ---
DATE OF CONSULTATION: HISTORY OF PRESENT ILLNESS: Pierre Rowland is an 88-year-old morbidly obese gentleman, who goes to the [facility]. He has been admitted to the hospital on 08/26/2019 at 12:00 p.m. He is being consulted this morning regarding his pleural effusion. His son, who is at the bedside, gives all the history and states that he had a recent sleep study done. It is unclear what transpired, but it appears he might not have CPAP titration. He has been getting weak, short of breath, lower extremity swelling. Home health nurse came to see him and thought he had pleural effusion and was sent here. X-ray shows a large left pleural effusion. He has severe limitation in his activity. He can barely walk even 20 feet without getting markedly short of breath. PAST MEDICAL HISTORY: 1. CHF. 2. Chronic renal failure. 3. Diabetes. 4. CLL. 5. LUIS 6. Kidney stones. 7. Coronary artery disease. PAST SURGICAL HISTORY: Previous surgeries include eye surgery, gallbladder, previous thoracentesis, cholecystectomy, tonsillectomy, pacemaker, and kidney stones removed. SOCIAL HISTORY: Tobacco, quit 20 years ago. HOME MEDICATIONS: Include; 1. Topiramate 25 once a day. 2. Flomax 0.4. 3. Gabapentin 100 three times a day. 4. Tylenol. 5. Zocor 40. 6. Aricept 5. 7. Lasix 40. 8. Coreg 3.125. 9. Allopurinol 300. ALLERGIES: NONE. REVIEW OF SYSTEMS: Otherwise, negative. PHYSICAL EXAMINATION: GENERAL: On examination, morbidly obese gentleman, appears to be very weak. VITAL SIGNS: Temperature 97, pulse 82, respiratory rate 18, saturations 96% on 2 L, and blood pressure 143/73. CHEST: Decreased breath sounds, left lung. CARDIAC: Normal S1 and S2. No gallops. ABDOMEN: No masses. EXTREMITIES: No edema. LABORATORY DATA: Creatinine 1.7. White count of 6000, platelet count is normal. BNP is 576. IMAGING DATA: X-ray shows a large pleural effusion. ASSESSMENT: Left pleural effusion, recurrent. Morbid obesity. Congestive heart failure. Dementia. Chronic lymphocytic leukemia. Renal failure. Benign prostatic hyperplasia. PLAN: A thoracentesis is going to be performed. Otherwise, continue supportive care and PT. Further recommendation after removing pleural effusion. This is a consultation note, 70 minutes, 50% direct patient care. Job ID: [id number] MTDD
--- NOTE | 2019-08-27 12:17 | RAD ---
SINGLE VIEW CHEST: Date: 08/27/2019 COMPARISON: 08/26/2019. HISTORY: Cough. FINDINGS: Single view of the chest shows an enlarged but stable cardiomediastinal silhouette. The patient appea rs to have had recent thoracocentesis with decreased size in the left pleural effusion. No pneumothor ax is seen. The pacemaker is unchanged in position. An opacity is again seen projecting over the righ t thorax measuring 8.0 cm in size. IMPRESSION: 1. Status post left thoracocentesis without evidence of pneumothorax. 2. Right pulmonary mass. POS: C
[2019-08-27 13:16] LABS: BF Color Red; Body Fluid Source Thoracentesis Fluid; Clarity Cloudy/Turbid (Clear); Tube # 3
[2019-08-27 13:45] LABS: BF Segmented Neutrophils 2 %; Cell Count Non Hematic 57 %; Lymphocytes 41 %
--- NOTE | 2019-08-27 19:12 | PDOC.HOSPP ---
- Subjective Encounter Date: 08/27/19 Encounter Time: 08:45 Subjective: pt up in bed does not complains of any sob. He is on 2l of oxygen. - Objective Vital Signs & Weight: Vital Signs (12 hours) Temp Pulse Pulse Pulse Resp BP BP 08/27/19 18:43 65 16 08/27/19 15:51 98.4 F 78 16 08/27/19 13:10 69 89 110/60 116/66 08/27/19 12:28 63 20 08/27/19 11:31 97.4 F L 72 20 08/27/19 07:23 97.4 F L 82 18 BP Pulse Ox 08/27/19 18:43 94 L 08/27/19 15:51 124/60 94 L 08/27/19 13:10 08/27/19 12:28 93 L 08/27/19 11:31 122/73 94 L 08/27/19 07:23 143/73 H 96 Weight Admit Weight 207 lb 2 oz Weight 206 lb 9.6 oz I&O: 08/26/19 08/27/19 08/28/19 06:59 06:59 06:59 Intake Total 120 Balance 120 Result Diagrams: 08/27/19 04:39 08/27/19 04:39 Additional Labs: Accuchecks 08/27/19 08/27/19 08/27/19 17:04 12:28 05:31 POC Glucose 109 91 75 08/26/19 20:49 POC Glucose 115 H Hospitalist ROS - Review of Systems Respiratory: reports: shortness of breath Cardiovascular: denies: chest pain, palpitations, orthopnea, paroxysmal noc. dyspnea, edema, light headedness, other Gastrointestinal: denies: nausea, vomiting, abdominal pain, diarrhea, constipation, melena, hematochezia, other Genitourinary: denies: dysuria, frequency, incontinence, hematuria, retention, other - Medication Medications: Active Medications Generic Name Dose Route Start Last Admin Trade Name Freq PRN Reason Stop Dose Admin Albuterol/Ipratropium 3 ml 08/27/19 13:00 08/27/19 18:43 Duoneb NEB 3 ml [id number] BERNARDINO Administration Allopurinol 300 mg 08/27/19 09:00 08/27/19 09:53 Zyloprim PO 300 mg DAILY BERNARDINO Administration Carvedilol 3.125 mg 08/27/19 09:00 08/27/19 09:53 Coreg PO 3.125 mg DAILY BERNARDINO Administration Cholecalciferol 1,000 units 08/27/19 09:00 08/27/19 09:53 Vitamin D3 PO 1,000 units DAILY BERNARDINO Administration Donepezil HCl 5 mg 08/26/19 21:00 08/26/19 22:23 Aricept PO 5 mg HS BERNARDINO Administration Dutasteride 0.5 mg 08/27/19 09:00 08/27/19 09:53 Avodart PO 0.5 mg DAILY BERNARDINO Administration Ferrous Sulfate 325 mg 08/26/19 17:00 08/27/19 18:07 Feosol PO 325 mg BID-WM BERNARDINO Administration Finasteride 5 mg 08/27/19 09:00 08/27/19 09:53 Proscar PO 5 mg DAILY BERNARDINO Administration Folic Acid 1 mg 08/27/19 09:00 08/27/19 09:53 Folvite PO 1 mg DAILY BERNARDINO Administration Gabapentin 100 mg 08/26/19 21:00 08/27/19 15:55 Neurontin PO 100 mg TID BERNARDINO Administration Melatonin 6 mg 08/26/19 21:00 08/26/19 22:23 Melatonin PO 6 mg HS BERNARDINO Administration Polyethylene Glycol 17 gm 08/27/19 09:00 08/27/19 09:53 Miralax PO 17 gm DAILY BERNARDINO Administration Saccharomyces Boulardii 250 mg 08/27/19 09:00 08/27/19 09:53 Florastor PO 250 mg DAILY BERNARDINO Administration Sertraline HCl 100 mg 08/27/19 09:00 08/27/19 09:53 Zoloft PO 100 mg DAILY BERNARDINO Administration Simvastatin 40 mg 08/26/19 21:00 08/26/19 22:24 Zocor PO 40 mg HS BERNARDINO Administration Tamsulosin HCl 0.4 mg 08/27/19 09:00 08/27/19 09:53 Flomax PO 0.4 mg DAILY BERNARDINO Administration Topiramate 25 mg 08/27/19 09:00 08/27/19 09:53 Topamax PO 25 mg DAILY BERNARDINO Administration - Exam Neck: negative: supple, symmetric, no JVD, no thyromegaly, no lymphadenopathy, no carotid bruit, JVD Heart: irregular Respiratory: rales Respiratory - other findings: decreased breath sounds to left lower lung bases, rales to right Gastrointestinal: soft, normal bowel sounds Gastrointestinal - other findings: mild pain to left upper quadrant. Extremities: negative: no cyanosis, no clubbing, no edema, 1+ LE edema, 2+ LE edema, clubbing Hosp A/P (1) Acute respiratory failure with hypoxia Code(s): J96.01 - ACUTE RESPIRATORY FAILURE WITH HYPOXIA Status: Acute (2) Anemia in CKD (chronic kidney disease) Code(s): N18.9 - CHRONIC KIDNEY DISEASE, UNSPECIFIED; D63.1 - ANEMIA IN CHRONIC KIDNEY DISEASE Status: Acute (3) CLL (chronic lymphocytic leukemia) Code(s): C91.10 - CHRONIC LYMPHOCYTIC LEUK OF B-CELL TYPE NOT ACHIEVE REMIS Status: Acute (4) Pleural effusion Code(s): J90 - PLEURAL EFFUSION, NOT ELSEWHERE CLASSIFIED Status: Acute (5) CKD (chronic kidney disease) stage 3, GFR 30-59 ml/min Code(s): N18.3 - CHRONIC KIDNEY DISEASE, STAGE 3 (MODERATE) Status: Chronic (6) Coronary artery disease Code(s): I25.10 - ATHSCL HEART DISEASE OF [place] CORONARY ARTERY W/O ANG PCTRS Status: Chronic Qualifiers: Coronary Disease-Associated Artery/Lesion type: [place] artery [place] vs. transplanted heart: [place] heart Associated angina: without angina Qualified Code(s): I25.10 - Atherosclerotic heart disease of [place] coronary artery without angina pectoris (7) DM type 2 (diabetes mellitus, type 2) Status: Chronic Qualifiers: Diabetes mellitus jail insulin use: without terminal carman use Diabetes mellitus complication status: with kidney complications Diabetes mellitus complication detail: with chronic kidney disease Chronic kidney disease stage : stage 3 (moderate) Qualified Code(s): E11.22 - Type 2 diabetes mellitus with diabetic chronic kidney disease; N18.3 - Chronic kidney disease, stage 3 ( moderate) (8) Horseshoe kidney Code(s): Q63.1 - LOBULATED, FUSED AND HORSESHOE KIDNEY Status: Chronic (9) UZMA (acute kidney injury) Code(s): N17.9 - ACUTE KIDNEY FAILURE, UNSPECIFIED Status: Acute - Plan pt to undergo thoracentesis per lights criteria appear to be transudate. cytology pending. pt uses oxygen at night. possible discharge in am if feels well. creatinine improving. may start his lasix in am.
[2019-08-27] MEDS: Donepezil HCl 5 MG TAB PO SCH (22:13)
[2019-08-27] MEDS: Melatonin 3 MG TAB PO SCH (22:13)
[2019-08-27] MEDS: Simvastatin 40 MG TAB PO SCH (22:14)
[2019-08-28] MEDS: Dutasteride 0.5 MG CAP PO SCH (09:43)
[2019-08-28] MEDS: Carvedilol 3.125 MG TAB PO SCH (09:44)
[2019-08-28] MEDS: Ferrous Sulfate 325 MG TAB PO SCH ×2 (09:44→17:51)
[2019-08-28] MEDS: Tamsulosin HCl 0.4 MG CAP PO SCH (09:44)
[2019-08-28] MEDS: Finasteride 5 MG TAB PO SCH (09:44)
[2019-08-28] MEDS: Allopurinol 300 MG TAB PO SCH (09:44)
[2019-08-28] MEDS: Saccharomyces boulardii 250 MG CAP PO SCH (09:44)
[2019-08-28] MEDS: Topiramate 25 MG TAB PO SCH (09:45)
[2019-08-28] MEDS: Gabapentin 100 MG CAP PO SCH ×3 (09:45→22:13)
[2019-08-28] MEDS: Folic Acid 1 MG TAB PO SCH (09:45)
[2019-08-28] MEDS: Polyethylene Glycol 3350 17 GM Packet PO SCH (09:49)
--- NOTE | 2019-08-28 10:37 | PDOC.HOSPP ---
- Subjective Encounter Date: 08/28/19 Encounter Time: 07:00 Subjective: Pt seen for followup re: acute hypoxic respiratory failure. States he feels better today. - Objective Vital Signs & Weight: Vital Signs (12 hours) Temp Pulse Resp BP Pulse Ox 08/28/19 07:49 98.2 F 89 16 102/61 94 L 08/28/19 06:31 87 L 08/28/19 06:28 83 16 87 L 08/28/19 03:39 97.7 F 87 18 118/57 L 94 L 08/28/19 00:03 64 16 94 L Weight Admit Weight 207 lb 2 oz Weight 204 lb 4 oz I&O: 08/27/19 08/28/19 08/29/19 06:59 06:59 06:59 Intake Total 120 1200 Output Total 625 Balance 120 575 Result Diagrams: 08/28/19 10:57 08/28/19 10:57 Additional Labs: Accuchecks 08/28/19 08/27/19 08/27/19 05:38 20:21 17:04 POC Glucose 79 132 H 109 08/27/19 12:28 POC Glucose 91 Labs and MARs reviewed by me EKG Reviewed by me: Yes (Tele: AV-paced) Hospitalist ROS - Review of Systems Respiratory: reports: SOB with excertion Cardiovascular: denies: chest pain, palpitations, orthopnea, paroxysmal noc. dyspnea, edema, light headedness Gastrointestinal: denies: nausea, vomiting, abdominal pain, diarrhea, constipation, melena, hematochezia - Medication Medications: Active Medications Generic Name Dose Route Start Last Admin Trade Name Jasonq PRN Reason Stop Dose Admin Albuterol/Ipratropium 3 ml 08/27/19 13:00 08/28/19 06:28 Duoneb NEB 3 ml [id number] BERNARDINO Administration Allopurinol 300 mg 08/27/19 09:00 08/28/19 09:44 Zyloprim PO 300 mg DAILY BERNARDINO Administration Carvedilol 3.125 mg 08/27/19 09:00 08/28/19 09:44 Coreg PO 3.125 mg DAILY BERNARDINO Administration Cholecalciferol 1,000 units 08/27/19 09:00 08/28/19 09:43 Vitamin D3 PO 1,000 units DAILY BERNARDINO Administration Donepezil HCl 5 mg 08/26/19 21:00 08/27/19 22:13 Aricept PO 5 mg HS BERNARDINO Administration Dutasteride 0.5 mg 08/27/19 09:00 08/28/19 09:43 Avodart PO 0.5 mg DAILY BERNARDINO Administration Ferrous Sulfate 325 mg 08/26/19 17:00 08/28/19 09:44 Feosol PO 325 mg BID-WM BERNARDINO Administration Finasteride 5 mg 08/27/19 09:00 08/28/19 09:44 Proscar PO 5 mg DAILY BERNARDINO Administration Folic Acid 1 mg 08/27/19 09:00 08/28/19 09:45 Folvite PO 1 mg DAILY BERNARDINO Administration Gabapentin 100 mg 08/26/19 21:00 08/28/19 09:45 Neurontin PO 100 mg TID BERNARDINO Administration Melatonin 6 mg 08/26/19 21:00 08/27/19 22:13 Melatonin PO 6 mg HS BERNARDINO Administration Polyethylene Glycol 17 gm 08/27/19 09:00 08/28/19 09:49 Miralax PO Not Given DAILY BERNARDINO Saccharomyces Boulardii 250 mg 08/27/19 09:00 08/28/19 09:44 Florastor PO 250 mg DAILY BERNARDINO Administration Sertraline HCl 100 mg 08/27/19 09:00 08/28/19 09:44 Zoloft PO 100 mg DAILY BERNARDINO Administration Simvastatin 40 mg 08/26/19 21:00 08/27/19 22:14 Zocor PO 40 mg HS BERNARDINO Administration Tamsulosin HCl 0.4 mg 08/27/19 09:00 08/28/19 09:44 Flomax PO 0.4 mg DAILY BERNARDINO Administration Topiramate 25 mg 08/27/19 09:00 08/28/19 09:45 Topamax PO 25 mg DAILY BERNARDINO Administration - Exam General Appearance: awake alert Eye: anicteric sclera ENT: moist mucosa Neck: supple Heart: RRR, no rubs Respiratory - other findings: Bibasal crackles Gastrointestinal: soft, non-tender Extremities: no cyanosis Psychiatric: normal affect, normal behavior Hosp A/P - Plan Hosp A/P (1) Acute respiratory failure with hypoxia Code(s): J96.01 - ACUTE RESPIRATORY FAILURE WITH HYPOXIA Status: Acute (2) Pleural effusion Code(s): J90 - PLEURAL EFFUSION, NOT ELSEWHERE CLASSIFIED Status: Acute (3) Acute on chronic stage 3 renal failure Status: Acute (4) CLL (chronic lymphocytic leukemia) Code(s): C91.10 - CHRONIC LYMPHOCYTIC LEUK OF B-CELL TYPE NOT ACHIEVE REMIS Status: Chronic (5) Anemia in CKD (chronic kidney disease) Code(s): N18.9 - CHRONIC KIDNEY DISEASE, UNSPECIFIED; D63.1 - ANEMIA IN CHRONIC KIDNEY DISEASE Status: Chronic (6) Coronary artery disease Code(s): I25.10 - ATHSCL HEART DISEASE OF [place] CORONARY ARTERY W/O ANG PCTRS Status: Chronic Qualifiers: Coronary Disease-Associated Artery/Lesion type: [place] artery [place] vs. transplanted heart: [place] heart Associated angina: without angina Qualified Code(s): I25.10 - Atherosclerotic heart disease of [place] coronary artery without angina pectoris (7) DM type 2 (diabetes mellitus, type 2) Status: Chronic Qualifiers: Diabetes mellitus halfway insulin use: without keno terminal operator use Diabetes mellitus complication status: with kidney complications Diabetes mellitus complication detail: with chronic kidney disease Chronic kidney disease stage : stage 3 (moderate) Qualified Code(s): E11.22 - Type 2 diabetes mellitus with diabetic chronic kidney disease; N18.3 - Chronic kidney disease, stage 3 ( moderate) (8) Horseshoe kidney Code(s): Q63.1 - LOBULATED, FUSED AND HORSESHOE KIDNEY Status: Chronic - Plan s/p thoracentesis. Ple effusion likely due to CLL. Recheck creatinine. Blood sugars controlled. Not on ACEI/ARB due to renal failure.
[2019-08-28 11:05] LABS: #Eosinphils 0.1 thou/uL (0.0-0.7); #Lymphocytes 1.9 thou/uL (1.20-3.40); #Monocytes 0.4 thou/uL (0.11-0.59); #Neutrophils 3.7 thou/uL (1.40-6.50); %Basophils 0.4 % (0.0-1.0); %Eosinophils 1.5 % (0.0-10.0); %Lymphocytes 31.2 % (21.0-51.0); %Monocytes 6.1 % (0.0-10.0); %Neutrophils 60.8 % (42.0-75.0); Mean Corpuscular HGB CONC 31.9 g/dL (32.0-36.0); Mean Corpuscular Hemoglobin 32.5 pg (27.0-31.0); Mean Platelet Volume 8.3 fL (7.4-10.4); Platelet Count 141 thou/uL (130-400); RBC Distribution Width 14.1 % (11.5-14.5); Red Blood Cell (RBC) Count 3.99 mill/uL (4.70-6.10); White Blood Cell (WBC) Count 6.1 thou/uL (4.8-10.8)
[2019-08-28 11:27] LABS: Anion Gap 11 mmol/L (10-20); BUN (Urea Nitrogen) 27 mg/dL (8.4-25.7); Calc. Creatinine Clearance 40 mL/min (70-130); Calcium 8.9 mg/dL (7.8-10.44); Carbon Dioxide 25 mmol/L (23-31); Chloride 107 mmol/L (98-107); Estimated GFR-MDRD 38; Glucose 110 mg/dL (83-110); Potassium 4.1 mmol/L (3.5-5.1); Sodium 139 mmol/L (136-145)
--- NOTE | 2019-08-28 14:46 | CON ---
DATE OF CONSULTATION: HISTORY OF PRESENT ILLNESS: The patient is an 88-year-old gentleman, who presents for evaluation of dyspnea. The patient has a history of ischemic cardiomyopathy. The patient underwent a cardiac catheterization in 2017. He was found to have left main and three-vessel coronary artery disease. He was felt to be at prohibitive risk for revascularization and the patient has been on medical therapy. He was admitted for increasing dyspnea. He was found to have a large pleural effusion. The patient also has history of an AICD placement. The patient denies having any chest discomfort. PAST MEDICAL HISTORY: Significant for, 1. Cardiomyopathy. 2. CAD. 3. Hypertension. 4. Parkinson disease. 5. Dyslipidemia. 6. Depression. PAST SURGICAL HISTORY: He had cholecystectomy, tonsillectomy. SOCIAL HISTORY: Nonsmoker. MEDICATIONS: See nursing list. ALLERGIES: NO KNOWN DRUG ALLERGIES. REVIEW OF SYSTEMS: Ten-point system otherwise unremarkable. PHYSICAL EXAMINATION: GENERAL: Obese gentleman, in no acute distress. VITAL SIGNS: Blood pressure 143/73. NECK: Showed no jugular venous distention. LUNGS: Have decreased breath sounds in the left base. HEART: Regular rate and rhythm. Normal S1 and S2. ABDOMEN: Distended. EXTREMITIES: Showed trace edema. LABORATORY RESULTS: Sodium 139, potassium 4.1, chloride 107, bicarbonate 25, BUN 27, and creatinine 1.7. White blood cell count 6.1, hemoglobin 13.0, hematocrit 40.7, and platelets 141. His troponin level was 0.06. IMAGING DATA: EKG revealed dual-chamber electronic pacemaker. IMPRESSION: 1. Ischemic cardiomyopathy. 2. History of severe three-vessel coronary artery disease. 3. Hypertension. 4. Dyslipidemia. 5. Chronic lymphocytic leukemia. 6. Chronic renal insufficiency. PLAN: This gentleman has presented with a pleural effusion. This is felt to be secondary to CLL. He does not appear to be in overt heart failure. From a cardiac standpoint, he is on Coreg. We will start low-dose hydralazine since he has chronic renal insufficiency. He may benefit from trying a trial of low-dose Entresto. We will also start the patient on aspirin. I would recommend he be on a high-dose statin. The patient's troponin level is indeterminate of no clinical significance. We will follow this patient with you through his hospitalization. Job ID: [id number]
--- NOTE | 2019-08-28 15:47 | PRG ---
DATE OF SERVICE: 08/28/2019 SUBJECTIVE: Yesterday, my colleague, Dr. Madrigal, performed a thoracentesis on this patient, removing 1.9 L of fluid. The fluid has a lymphocytic cell predominance consistent with chronic lymphocytic leukemia or lymphoma. The fluid has a neutrophilic predominance with a total protein of 3.8. 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 In the past, I believe his effusions have been attributed to heart failure. Today, he is complaining of some left-sided chest pain along his left 5th rib anteriorly. OBJECTIVE: VITAL SIGNS: His temperature is 98.1, pulse 65, respirations 20, O2 saturation 93% on 2 L, and blood pressure 129/72. GENERAL: He appears chronically ill. HEENT: Unremarkable. NECK: No adenopathy or JVD. LUNGS: Clear anteriorly. CARDIOVASCULAR: S1, S2. Regular. ABDOMEN: Soft. EXTREMITIES: No edema. ASSESSMENT: This patient is presenting with left pleural effusion, that is likely secondary to chronic lymphocytic leukemia. RECOMMENDATIONS: Oncology has been consulted to see the patient. I think it is going to be very difficult for this man to tolerate any kind of chemotherapy based on his performance status. He has been in declining health for quite sometime. If the effusion becomes problematic in terms of recurrence, then we can consider PleurX catheter placement. Job ID: [id number]
[2019-08-28] MEDS: hydrALAZINE 10 MG TAB PO SCH ×2 (15:50→22:14)
--- NOTE | 2019-08-28 18:47 | CON ---
DATE OF CONSULTATION: REASON FOR CONSULTATION: CLL. HISTORY OF PRESENT ILLNESS: Mr. Rowland is an 88-year-old gentleman with a history of essential tremors, cardiomyopathy, diabetes, kidney stones, and CLL/SLL. He presented to the emergency room with complaints of shortness of breath. He was found to have a left pleural effusion, for which he had a thoracentesis. Cytology showed lymphocytes consistent with the patient's CLL or SLL. The patient was diagnosed incidentally upon a prior hospitalization in June of 2018. He was having night sweats and fatigue. He was started on a low-dose ibrutinib, which he seemed to tolerate well. His symptoms did reside. His last dose was in November. It was stopped due to his poor performance status and his multiple hospitalizations. Thus, he has not been on treatment for about 9 months. At the time of diagnosis in June of 2018, his white count was elevated at 16 with a high of 33.7. On this admission, his white count is 6. He denies any complaints at this time other than some tenderness around his left diaphragm and rib area. His spleen is not palpable. PAST MEDICAL HISTORY: 1. Diabetes, type 2. 2. CLL. 3. Nephrolithiasis. 4. Horseshoe kidney. 5. Tremors. 6. CHF. 7. Arthritis. 8. Remote history of prostate cancer. 9. Atrial fibrillation. PAST SURGICAL HISTORY: 1. Cholecystectomy. 2. Appendectomy. 3. AICD placement. 4. Nephrolithiasis with stenting. ALLERGIES: NO KNOWN DRUG ALLERGIES. HOME MEDICATIONS: Reviewed per [facility]. FAMILY HISTORY: Mother had colon cancer. SOCIAL HISTORY: , lives with his spouse. No alcohol, tobacco, or illicit drug use. REVIEW OF SYSTEMS: A 10-point review of systems is negative except for noted in HPI. PHYSICAL EXAMINATION: VITAL SIGNS: Temperature 98.2, pulse is 89, respiratory rate 14, blood pressure is 124/70. He is 95% on room air. GENERAL: This is a well-developed, elderly gentleman, in no acute distress. HEENT: Normocephalic and atraumatic. Pupils are equal and reactive to light. CV: Irregular rate and rhythm. LUNGS: Clear anterior. ABDOMEN: Obese. Bowel sounds are positive. EXTREMITIES: No clubbing or cyanosis. SKIN: No rash. HEMATOLOGICAL: No petechiae or purpura. NEUROLOGIC: Nonfocal. PERTINENT LABS AND X-RAYS: Current WBCs 6.1, hemoglobin 13, hematocrit 40.7, platelet counts 141,000. He has 60% neutrophils, 31% lymphocytes. Sodium is 139, potassium 4.1, chloride 107, CO2 is 25, BUN is 27, creatinine 1.72, calcium is 8.9. Radiology, per HPI. ASSESSMENT: 1. Left pleural effusion, status post thoracentesis. 2. History of chronic lymphocytic leukemia, off treatment for the past 8 months. DISCUSSION: The patient was on reduced dose of ibrutinib for his CLL. It was stopped back in November due to multiple hospitalizations and poor performance status. He now has a pleural effusion with lymphocytes consistent with his CLL. The plan is for him to be discharged and follow up with Dr. Mccann in the clinic as he has not seen him since November of last year. Discussions will be had at that time whether to continue oral chemotherapy. Thank you for the consult. Job ID: [id number]
[2019-08-28] MEDS ORDERED: Atorvastatin Calcium 40 MG TAB PO SCH (21:00)
[2019-08-28] MEDS: Donepezil HCl 5 MG TAB PO SCH (22:13)
[2019-08-28] MEDS: Melatonin 3 MG TAB PO SCH (22:13)
[2019-08-29 04:55] LABS: #Eosinphils 0.2 thou/uL (0.0-0.7); #Lymphocytes 2.1 thou/uL (1.20-3.40); #Monocytes 0.5 thou/uL (0.11-0.59); #Neutrophils 3.3 thou/uL (1.40-6.50); %Basophils 0.8 % (0.0-1.0); %Eosinophils 3.2 % (0.0-10.0); %Lymphocytes 34.6 % (21.0-51.0); %Monocytes 7.6 % (0.0-10.0); %Neutrophils 53.8 % (42.0-75.0); Hemoglobin 12.2 g/dL (14.0-18.0); Mean Corpuscular HGB CONC 32.6 g/dL (32.0-36.0); Mean Corpuscular Hemoglobin 33.3 pg (27.0-31.0); Mean Platelet Volume 8.3 fL (7.4-10.4); Platelet Count 135 thou/uL (130-400); RBC Distribution Width 14.3 % (11.5-14.5); Red Blood Cell (RBC) Count 3.67 mill/uL (4.70-6.10)
[2019-08-29 05:14] LABS: Anion Gap 11 mmol/L (10-20); BUN (Urea Nitrogen) 30 mg/dL (8.4-25.7); Calc. Creatinine Clearance 40 mL/min (70-130); Carbon Dioxide 26 mmol/L (23-31); Chloride 107 mmol/L (98-107); Estimated GFR-MDRD 38; Glucose 75 mg/dL (83-110); Potassium 3.9 mmol/L (3.5-5.1); Sodium 140 mmol/L (136-145)
[2019-08-29] MEDS: Ferrous Sulfate 325 MG TAB PO SCH (08:47)
[2019-08-29] MEDS: Allopurinol 300 MG TAB PO SCH (08:47)
[2019-08-29] MEDS: Dutasteride 0.5 MG CAP PO SCH (08:48)
[2019-08-29] MEDS: Finasteride 5 MG TAB PO SCH (08:48)
[2019-08-29] MEDS: Carvedilol 3.125 MG TAB PO SCH (08:48)
[2019-08-29] MEDS: Gabapentin 100 MG CAP PO SCH (08:48)
[2019-08-29] MEDS: Folic Acid 1 MG TAB PO SCH (08:48)
[2019-08-29] MEDS: Tamsulosin HCl 0.4 MG CAP PO SCH (08:49)
[2019-08-29] MEDS: Polyethylene Glycol 3350 17 GM Packet PO SCH (08:49)
[2019-08-29] MEDS: Saccharomyces boulardii 250 MG CAP PO SCH (08:49)
[2019-08-29] MEDS: Topiramate 25 MG TAB PO SCH (08:49)
[2019-08-29] MEDS: hydrALAZINE 10 MG TAB PO SCH (08:49)
[2019-08-29] MEDS ORDERED: Aspirin 81 mg Enteric Coated Tablet PO SCH (09:00)
--- NOTE | 2019-08-29 09:29 | PRG ---
DATE OF SERVICE: 08/29/2019 SUBJECTIVE: The patient seems to be doing reasonably well. He had no acute complaints. OBJECTIVE: VITAL SIGNS: Temperature 98.2, pulse 89, respirations 16, O2 saturation 93% on 2 L, and blood pressure 111/69. HEENT: Unremarkable. NECK: No adenopathy or JVD. LUNGS: Clear. CARDIAC: S1 and S2. Regular. ABDOMEN: Soft. EXTREMITIES: Trace edema. ASSESSMENT: The patient has a left-sided pleural effusion secondary to chronic lymphocytic leukemia. RECOMMENDATIONS: This is going to be a very difficult issue. If he can at all stand and restart therapy for the CLL, then I would recommend that. If he does not restart therapy, then the effusion will eventually come back and this would either have to be treated conservatively or treated with a PleurX catheter. In any event, there is nothing else to do for this problem during this admission. The patient is safe to discharge from our standpoint. Job ID: [id number]
[2019-08-29 11:18] VITALS: TEMP 98
[2019-08-29 12:20] VITALS: BP 128/65
--- NOTE | 2019-08-30 01:36 | DIS ---
DATE OF ADMISSION: 08/26/2019 DATE OF DISCHARGE: 08/29/2019 PRIMARY CARE PROVIDER: [facility] in [place]. DISCHARGE DIAGNOSES: 1. Acute hypoxic respiratory failure. 2. Left-sided pleural effusion. 3. Acute on chronic stage 3 renal failure. CONDITION OF PATIENT ON THE DAY OF DISCHARGE: Stable. I assessed Mr. Rowland on the day of discharge. He denies any chest pain or shortness of breath. Vital signs are stable. S1 and S2 are heard, regular. Lungs are clear to auscultation bilaterally. CONSULTATIONS DURING THIS HOSPITALIZATION: 1. Cardiology, Dr. Guadarrama. 2. Pulmonology, Dr. Madrigal. 3. Oncology, Ms. Leong. DISCHARGE MEDICATIONS: He has been started on, 1. Hydralazine 10 mg 3 times a day. 2. Aspirin 81 mg daily. 3. Otherwise, no change was made to his pre-admission home medications as dictated by Dr. Guerrero in her history and physical note dated August 26, 2019. POST ACUTE CARE FOLLOWUP: With Dr. Mccann, with Dr. Shin, and with primary care provider. HOSPITAL COURSE: Mr. Rowland is a pleasant 88-year-old gentleman, who was admitted to [facility] on August 26, 2019, for acute hypoxic respiratory failure secondary to large left-sided pleural effusion. He was seen by Pulmonology Service. He underwent thoracentesis. The pathology report indicates uniform small lymphocytes, consistent with known CLL/SLL. He continued to improve clinically. He was seen by Cardiology Service. He has been started on hydralazine for optimal blood pressure control. He is being discharged home in a stable condition. On the day of discharge, he has sodium 140, potassium 3.9, creatinine 1.73, white count 6000, hemoglobin 12.2, and platelet count 135,000. DIET: Heart healthy and renal. ACTIVITY: As tolerated. DISCHARGE DESTINATION: Home with Home Health. TIME SPENT: Total amount of time spent coordinating this discharge: 33 minutes. Job ID: [id number]
== END 2019-08-29 13:45 | disposition home health service (06) | DRG 840 ==
LOC: ERS 12:57 → ERHOLD 15:43 → 2NO 17:24
PROVIDERS: ADMIT Emergency Medicine; ATTEND Internal Medicine
PROC: 0W9B3ZZ Drainage of Left Pleural Cavity, Percutaneous Approach (ICD-10-PCS; principal; 2019-08-27)
DX: C91.10 Chronic lymphocytic leukemia of B-cell type not having achieved remission (principal); J96.01 Acute respiratory failure with hypoxia; N17.9 Acute kidney failure, unspecified; I42.9 Cardiomyopathy, unspecified; I13.0 Hypertensive heart and chronic kidney disease with heart failure and stage 1 through stage 4 chronic kidney disease, or unspecified chronic kidney disease; I50.22 Chronic systolic (congestive) heart failure; J91.0 Malignant pleural effusion; N18.3 Chronic kidney disease, stage 3 (moderate); I25.5 Ischemic cardiomyopathy; Z87.442 Personal history of urinary calculi; Z95.810 Presence of automatic (implantable) cardiac defibrillator; Z90.49 Acquired absence of other specified parts of digestive tract; E11.22 Type 2 diabetes mellitus with diabetic chronic kidney disease; D63.1 Anemia in chronic kidney disease; I25.10 Atherosclerotic heart disease of native coronary artery without angina pectoris; Q63.1 Lobulated, fused and horseshoe kidney; G47.33 Obstructive sleep apnea (adult) (pediatric); E78.5 Hyperlipidemia, unspecified; G20 Parkinson's disease; F32.9 Major depressive disorder, single episode, unspecified; E66.9 Obesity, unspecified; Z68.29 Body mass index [BMI] 29.0-29.9, adult
CPT/HCPCS: 36415; 36416; 71045; 80048; 80053; 81003; 81015; 82150; 82553; 82945; 83615; 83880; 83986; 84155; 84157; 84478; 84484; 85025; 85060; 87070; 87086; 87116; 87205; 87206; 88112; 88305; 89051; 93005; 93798; 94640; J1642; J7620

== ENCOUNTER 2019-09-10 12:23 | Outpatient (CLI) | payer MEDICARE ==
--- NOTE | 2019-09-10 13:02 | RAD ---
EXAM: Chest 4 views: HISTORY: Pleural effusion COMPARISON: 08/27/2019 FINDINGS: There is an enlarged but stable cardiomediastinal silhouette. The pacemaker is unchanged in position . There is a stable 2.8 cm right pulmonary mass. There is a small to moderate left pleural effusion which appears to demonstrate layering on the decubitus film. The bones are unremarkable. IMPRESSION: Cardiomegaly and left pleural effusion
== END 2019-09-10 12:24 | disposition home or self-care (01) ==
LOC: BICRAD 12:23
PROVIDERS: ATTEND Nurse Practitioner Family
DX: J90 Pleural effusion, not elsewhere classified (principal); I51.7 Cardiomegaly
CPT/HCPCS: 71048

== ENCOUNTER 2019-09-19 12:37 | Inpatient (IN) | payer OTHER ==
[2019-09-19 13:34] LABS: Hemoglobin 12.8 g/dL (14.0-18.0); Mean Corpuscular HGB CONC 32.3 g/dL (32.0-36.0); Mean Corpuscular Hemoglobin 32.6 pg (27.0-31.0); Mean Platelet Volume 8.6 fL (7.4-10.4); Platelet Count 172 thou/uL (130-400); Red Blood Cell (RBC) Count 3.93 mill/uL (4.70-6.10); White Blood Cell (WBC) Count 10.7 thou/uL (4.8-10.8)
--- NOTE | 2019-09-19 13:35 | RAD ---
XR Chest 1 View Portable HISTORY: Pleural effusion COMPARISON: 09/10/2019 FINDINGS: Left-sided AICD remains in place. The heart size normal but stable. The 2.8 cm right lung m ass is stable. Left moderate-sized pleural effusion is stable. No pneumothoraces are seen. IMPRESSION: Stable exam.
[2019-09-19 13:52] LABS: Band 18 % (5-11); Eosinophils 3 % (0-10); Lymphocytes 22 % (21-51); MDiff Complete? YES; Macrocytosis SLIGHT = 6-15 cells (100X) (0-5/hpf); Monocytes 4 % (0-10); Neutrophil 26 % (42-75); Platelet Morphology Comment Appears Adequate; Polychromasia SLIGHT = 2-3 cells (100X) (0-2/hpf); Reactive Lymphocytes 27 % (0-10)
[2019-09-19 14:10] LABS: ALT (SGPT) 23 U/L (8-55); AST (SGOT) 31 U/L (5-34); Albumin 3.8 g/dL (3.4-4.8); Alkaline Phosphatase 65 U/L (40-110); Anion Gap 16 mmol/L (10-20); BUN (Urea Nitrogen) 64 mg/dL (8.4-25.7); Bilirubin, Total 0.4 mg/dL (0.2-1.2); Calc. Creatinine Clearance 0 mL/min (70-130); Calcium 8.6 mg/dL (7.8-10.44); Carbon Dioxide 24 mmol/L (23-31); Chloride 104 mmol/L (98-107); Estimated GFR-MDRD 20; Globulin 2.6 g/dL (2.4-3.5); Glucose 94 mg/dL (83-110); Potassium 4.8 mmol/L (3.5-5.1); Protein, Total 6.4 g/dL (5.8-8.1); Sodium 139 mmol/L (136-145)
[2019-09-19 14:18] LABS: Bilirubin Negative (Negative); Blood, Urine 2+ (Negative); Clarity Clear (Clear); Glucose, Urine (Dipstick) Normal (Negative); Leukocyte 75 Leu/uL (Negative); Nitrite Negative (Negative); Protein, Urine (Dipstick) 20 mg/dL (Neg-Trace); RBC/HPF Greater than 50 HPF (0-3); Squamous Epithelial 0-3 HPF (0-3); Urobilinogen Normal mg/dL (Less than 2)
[2019-09-19 14:20] LABS: Bacteria/HPF 1+ HPF (None Seen)
[2019-09-19 14:28] LABS: WBC/HPF 21-50 HPF (0-3)
[2019-09-19] MEDS ORDERED: cefTRIAXone\\ROCEPHIN 2 GM VIAL ONE (15:37)
[2019-09-19] MEDS ORDERED: Sodium Chloride 0.9% 100 ML ONE (15:37)
[2019-09-19] MEDS ORDERED: Dextrose 50% Abboject 50 ML SYRINGE SLOW IVP PRN (17:40)
[2019-09-19] MEDS ORDERED: Ondansetron PF 4 MG/2 ML Vial IVP PRN (17:40)
[2019-09-19] MEDS ORDERED: Ondansetron ODT 4 MG TAB PO PRN (17:40)
[2019-09-19] MEDS ORDERED: Dextrose 5% in Water 1,000 ML IV PRN (17:40)
[2019-09-19] MEDS ORDERED: HumaLOG 300 UNITS/3 ML VIAL SC PRN ×2 (17:40)
[2019-09-19 17:46] VITALS: BMI 27.6
--- NOTE | 2019-09-19 18:02 | HP ---
PRIMARY CARE PHYSICIAN: SPINNING FRAME CLEANER: Dr. Woodward. ONCOLOGIST: Dr. Mccann. HISTORY OF PRESENT ILLNESS: Mr. Rowland is a very pleasant 89-year-old gentleman, who has a history of CLL. He was recently admitted to the hospital, where he had acute respiratory failure due to a pleural effusion. This was felt to be due to his CLL. He was treated and then discharged home. He was doing fairly well until recently. He started feeling weaker and his son, who is at the bedside says that he was not as spunky as he had been. He also says he has been feeling dizzy and and this has been getting progressively worse over the past 2 weeks. He also noted some nausea and also since the month, he started noticing low blood pressures more frequently, some as low as 80/45. His blood pressure continued to be low and for this reason, along with the weakness, they brought him in for evaluation. It is also notable that the patient had been off Entresto and carvedilol for some time and then was recently restarted on the of this month. The patient also noted some burning with urination and has also had a couple of episodes of diarrhea off and on. REVIEW OF SYSTEMS: All systems were reviewed and are negative except for that mentioned in the history of present illness. PAST MEDICAL HISTORY: Significant for CLL and a left pleural effusion secondary to that; history of diabetes mellitus type 2; history of a horseshoe kidney; tremors; chronic systolic heart failure with an ejection fraction of 25% to 30% from an echo back in March of 2019. He also is status post AICD placement. PAST SURGICAL HISTORY: He has had a cholecystectomy, also has a history of nephrolithiasis, status post lithotripsy and stent placement. ALLERGIES: NO KNOWN DRUG ALLERGIES. SOCIAL HISTORY: He is , has 4 children. He is a nonsmoker and nondrinker. He lives with his youngest son and he would like to be a full code. FAMILY HISTORY: Significant for cancer in both parents and also he has siblings with cancer. MEDICATIONS: 1. Aspirin 81 mg daily. 2. Docusate 50 mg as needed. 3. MiraLAX 17 g daily as needed. 4. Entresto 24/26 mg one tablet twice a day. 5. Multivitamins daily. 6. Melatonin. 7. Topiramate 25 mg once a day. 8. Flomax 0.4 mg at bedtime. 9. Acidophilus 250 mg once a day. 10. Avodart 0.5 mg once daily. 11. Gabapentin 100 mg 3 times a day. 12. Finasteride 5 mg once daily. 13. Potassium chloride 20 mEq once a day. 14. Folic acid 1 mg daily. 15. Donepezil 10 mg daily. 16. Lasix 20 mg twice a day. 17. Vitamin D3 a 1000 units daily. 18. Simvastatin 80 mg daily. 19. Sertraline 50 mg daily. 20. Iron sulfate 325 mg daily. 21. Carvedilol 3.125 mg twice a day. 22. Allopurinol 300 mg once daily. 23. Ipratropium-albuterol q.4 hours as needed. 24. Imbruvica 140 mg 2 tablets once daily. PHYSICAL EXAMINATION: GENERAL: He is alert and oriented. He appears to be in no acute distress, although he is a bit fatigued in appearance and appears a bit chronically ill. VITAL SIGNS: Blood pressure was 118/74, heart rate 75, respiratory rate of 22, and temperature 98.7. HEENT: Pupils are equal, round, and reactive. Extraocular muscles are intact. His sclerae are anicteric. Throat, there is no erythema, no exudates. NECK: No adenopathy. No bruits. LUNGS: Clear to auscultation. There is no wheezing, no rales, no rhonchi. CARDIOVASCULAR: Heart sounds are a bit distant. He has a normal S1 and S2. I did not appreciate an S3 or S4. He had a slight grade 2/6 systolic murmur. ABDOMEN: Obese. It is soft. He had some mild diffuse tenderness, but there is no rebound, no guarding, no organomegaly. EXTREMITIES: He has trace pedal edema, but no calf tenderness. No joint effusions. NEUROLOGIC: Grossly nonfocal. SKIN AND INTEGUMENT: He has scattered bruising on both his upper and lower extremities. The right upper and lower extremity more so than the left. His dorsalis pedis pulses are diminished, but palpable. He has some hammertoe deformities on the feet and otherwise no other lesions. LABORATORY DATA: White blood cell count is 10.7, hemoglobin 12.8, hematocrit is 39.7, and platelet count is 172. Sodium 139, potassium 4.8, chloride is 104, CO2 is 24, BUN of 64, creatinine 3.01, and glucose is 94. Lactic acid of 1.2. Urinalysis showed 2+ blood, positive leukocyte esterase as well as rbc's are positive, wbc's are 21 to 50, and 1+ bacteria. He had a chest x-ray demonstrating a slight cardiomegaly, left-sided pleural effusion and no infiltrate. It does not appear to have any significant airspace disease, this is by my reading. ASSESSMENT: This is a pleasant 89-year-old gentleman, who presents to the emergency room with generalized weakness and hypotension. He also was found to have findings consistent with a urinary tract infection. I suspect that the patient is also on acute on chronic kidney injury. I suspect that the patient is volume depleted as a result of poor oral intake as well as some mild diarrhea and being on Entresto, which has an ARB component. His blood pressure already has recovered. He was given 1 L of fluids in the ER. He will be admitted and we will continue the IV fluids. However, at this point, since his blood pressure has improved, we will do this cautiously given his history of significant low ejection fraction, systolic heart failure. We will also consult Dr. Woodward to help with his management. 1. Acute on chronic kidney disease. I suspect that this is likely due to volume depletion as well and we will recheck his renal function in the a.m. Should we have difficulty getting his renal function to baseline, then we will consult Dr. Helton, who is his regular vacuum drier operator. 2. Urinary tract infection. We will continue empiric Rocephin. Follow up on urine cultures and adjust the antibiotic as needed. 3. History of chronic lymphocytic leukemia. We will continue his usual home medications. 4. Diabetes mellitus. He will be placed on a sliding scale insulin. 5. He is already on Eliquis. Therefore, we will not place him on any Lovenox and we will place him on Protonix for gastrointestinal prophylaxis. Job ID: [id number]
[2019-09-19] MEDS: Atorvastatin Calcium 20 MG TAB PO SCH (22:53)
[2019-09-19] MEDS: Apixaban 2.5 MG TAB PO SCH (22:54)
--- NOTE | 2019-09-19 23:49 | CON ---
DATE OF CONSULTATION: 09/19/2019 SERVICE: [facility] Cardiology consulting service. REASON FOR CONSULT: Cardiac management in the setting of acute renal failure secondary to hypovolemia. HISTORY OF PRESENT ILLNESS: Mr. Rowland, 89-year-old with heart failure with reduced ejection fraction due to non-revascularizable coronary artery disease, presented with hypotension and acute renal failure. He is a poor historian. He requires multiple interviews. It also required talking to his son and his son's . I will describe his HPI in 2 points of view from patient's perspective and then from the family perspective. Mr. Rowland, the patient, said he had 3 days of shortness of breath. This shortness of breath is especially worse at nighttime. He also said he had 2 to 3 days of cough. The cough was especially severe yesterday. He coughed all day, had difficulty going to sleep. However, for some reason, he does not seem to be coughing tonight. Mr. Rowland also said he is very nauseated. He also complains he has been having 2 to 3 bouts of watery diarrhea per day and this has been ongoing for 3 days. He also complains of lost of appetite. He does not like the food at all. Finally, he said that he feels like there is a pressure on the chest and making him not breathe well. He has to force himself to breathe. Finally, he said he has diffuse abdominal pain, worse on the left side. He said there was a lot of gurgling sound in his abdomen. The combination of shortness of breath, cough, nausea, abdominal pain, and diarrhea were his principal complaints. His son and gave a different story. His baseline blood pressure systolics around 130 to 140. He did start half dose Entresto combination on about September 04, then he had a slow decline in blood pressure. By the time he saw oncologist , Dr. Mccann, his systolic blood pressure about 100 to 110. Carvedilol was started sometime after Entresto. His blood pressure continued to drop throughout. His son said earlier this week, 2 to 3 days ago, his blood pressure went down to the mid 80s. It stayed at mid 80s for at least 2 days and yesterday, blood pressure went down as low as systolic being 76. At that point, all heart failure medications of carvedilol and Entresto were stopped. Earlier, they did call the [facility] about lowering the blood pressure. Diuretics will also be cut in half. Lasix 40 mg twice a day was cut down to 40 mg daily. His son and also describes hypoxia and cough. He does have chronic cough. At baseline, his oxygen saturation was about 96% to 97% on room air. His son then notices general decrease in oxygen saturation down to about 90% when he is saw Dr. Mccann about September 09. His son then describes that oxygen saturation went down as low as 85% about 3 days ago and his son told his dad to practice deep breathing. At nighttime, they put oxygen on him. The son and the describes that Mr. Rowland does have chronic cough, however, the cough intensified over the last 4 days, then about 3 days ago, his son said that his cough turned into croupy sounding meaning that the cough sounding like a dog barking. Combination of these symptoms were described to the [facility] Failure [facility] today. As instructed by the [facility] Failure [facility], oncologist, and primary care, the patient was asked to come to the ER to be evaluated. In the ER, he received at least 1 L of IV fluids and maintenance fluid was started at 50 mL/hour. After a while, it was stopped and with that, the patient said he has felt better and his blood pressure returned to his normal baseline about 130 mmHg or higher. PAST MEDICAL HISTORY: 1. CLL, currently being treated, there is lung mass. 2. Heart failure with reduced ejection fraction due to ischemic cardiomyopathy. 3. Non-revascularizable coronary artery disease. 4. Hypertension. 5. Chronic renal insufficiency. 6. Parkinson' disease. SOCIAL HISTORY: He is a nonsmoker. He does not drink alcohol and does not use illicit drugs. He lives with , who was to him for over 49 years. I believe that both his and him live with his son. FAMILY HISTORY: His father at age 98, but he cannot recall what the cause is. He says that his mother also in very old age. Besides that, he cannot seem to remember. REVIEW OF SYSTEMS: GENERAL: Fatigue, groggy, dizzy, but better with IV fluids. HEENT: He says that he does not see in well his left eye and then has some trouble breathing through his nose. PULMONARY: He says there is chest pressure, shortness of breath, and cough. CARDIOVASCULAR: No palpitations, syncope, nor cardiac like chest pains. GASTROINTESTINAL: Please see HPI. GENITOURINARY: He is able to urinate. NEUROLOGIC: No focal deficits or weakness. MUSCULOSKELETAL: He complains some pains, but then is difficult to say where and how because he kept on changing his story. INTEGUMENT: He does not complain of skin breakdown. MEDICATIONS: His outpatient cardiac regimen includes; 1. Carvedilol 6.25 mg twice a day. 2. Entresto 24/ combination half tablet b.i.d. 3. Lasix 40 mg daily. PHYSICAL EXAMINATION: VITAL SIGNS: Heart rate about 84, oxygen saturation at 94% on room air, blood pressure 132/69. GENERAL: He is alert and conversational, reclining in bed comfortably, however , he is short of breath. We cannot sustain long sentences. HEENT: Show EOMI. Oropharynx is benign. There is moist mucosa. There is no gross erythema. No exudate. NECK: His JVP is about 9 cm. PULMONARY: Good air movement on the right lung, but there is also some wheeze in the right lung. His left lung has very diminished breath sounds at the upper lung carlin. From mid to base, there is absent breath sounds, likely to be a large pleural effusion. CARDIAC: Has regular rate and rhythm with 2/6 holosystolic murmur at the apex. ABDOMEN: Very enlarged, but soft, nontender. Hyperactive bowel sounds. EXTREMITIES: His lower extremities are without edema. DIAGNOSTIC DATA: Chest x-ray was also reviewed. There is whiteout of the left lung, at least the lower half corresponding to a large pleural diffusion. There is a mass in the right lung. There is also infiltrate in the right lung. His pacer AICD was also interrogated. It is a [employer] device Viva Quad XT CUSTOMER SUCCESS REPRESENTATIVE -D [id number]. -Setting is DDDR with lower rate of 70 beats per minute at adaptive CUSTOMER SUCCESS REPRESENTATIVE mode. - There is no VT,also there is no VF. There is no atrial fibrillation. There is no atrial flutter. - He is A paced, V paced nearly 100% of the time. His thoracic impedance actually has increased recently to indicate loss of edema. LABORATORY VALUES: Show sodium 138, potassium 4.8, BUN 64, creatinine 3.01 and BNP of 85.6. His CBC show white cell count 10.7 that is an elevation from his baseline, hemoglobin of 12.8, and platelets of 172. There is only 26% neutrophil, but there is 18% bands. ASSESSMENT: 89-year-old male suffers from acute renal failure, likely due to hypotension. The hypotension is caused by likely recent bouts of diarrhea for 3 days together with cardiac medications and diuretics. The patient also has cough and shortness of breath. Some of this can be explained by increasing pleural effusion. With BNP of only 85.6, this further shows that shortness of breath occurred due to a pulmonary cause instead of heart failure. The increased cough and croup-like cough can to be secondary to an infection. The patient's UA indicates urinary tract infection is taking place, so this also needs to be more appropriately investigated. His cardiac status is an innocent bystander in this case. He is currently euvolemic. However, he will not tolerate much more fluids, so I recommend there is no additional IV fluid at this time. He has sufficient blood pressure to reperfuse his kidneys. RECOMMENDATIONS: 1. Do not start any heart failure medication at this time. 2. Do not add additional IV fluids at this time. 3. Follow renal function. If the renal function is not recovering, then we will start dobutamine. Starting dobutamine will increase cardiac output to re- perfuse the kidney and restore his kidney function. 4. Please do urine culture. 5. Please do a respiratory viral panel. 6. Please consider COVID-19 rule out as he has combination of cough, shortness of breath, diarrhea, and GI symptoms. Pleural effusion can explain some of his cough, however, 3 days of diarrhea cannot be explained by his pleural effusion. 7. Also do a blood culture. 8. Once his COVID-19 is clear, once the CT scan is done, please consult Pulmonary for evaluation for therapeutic thoracentesis. 9. Once patient's renal function starts to return normal, then we will slowly add back on heart failure medications. 10. If he is becoming edematous again before normalization of renal function, then inotropic agent will be needed to restore his renal function. It has been a pleasure of taking care of Mr. Rowland. If you have questions, please give me a call. Job ID: [id number] [facility]
[2019-09-20 04:34] LABS: Anion Gap 15 mmol/L (10-20); BUN (Urea Nitrogen) 57 mg/dL (8.4-25.7); Calc. Creatinine Clearance 27 mL/min (70-130); Calcium 8.6 mg/dL (7.8-10.44); Carbon Dioxide 22 mmol/L (23-31); Chloride 107 mmol/L (98-107); Estimated GFR-MDRD 25; Glucose 87 mg/dL (83-110); Magnesium 2.8 mg/dL (1.6-2.6); Potassium 4.6 mmol/L (3.5-5.1); Sodium 139 mmol/L (136-145)
[2019-09-20 06:43] LABS: Band 7 % (5-11); Eosinophils 3 % (0-10); Hemoglobin 12.3 g/dL (14.0-18.0); Lymphocytes 45 % (21-51); MDiff Complete? YES; Mean Corpuscular HGB CONC 32.9 g/dL (32.0-36.0); Mean Corpuscular Hemoglobin 32.9 pg (27.0-31.0); Mean Corpuscular Volume 99.8 fL (78.0-98.0); Mean Platelet Volume 8.6 fL (7.4-10.4); Monocytes 14 % (0-10); Neutrophil 31 % (42-75); Nucleated RBC 1 % (0); Platelet Count 152 thou/uL (130-400); RBC Distribution Width 13.8 % (11.5-14.5); Red Blood Cell (RBC) Count 3.75 mill/uL (4.70-6.10); White Blood Cell (WBC) Count 10.6 thou/uL (4.8-10.8)
[2019-09-20] MEDS ORDERED: Carvedilol 3.125 MG TAB PO SCH ×2 (08:00→17:00)
[2019-09-20] MEDS ORDERED: Allopurinol 300 MG TAB PO SCH (09:00)
[2019-09-20] MEDS ORDERED: FLU VACC TS2019-20(65YR UP)/PF 180 MCG/0.5 ML SYRINGE IM ONE (09:00)
[2019-09-20] MEDS: Saccharomyces boulardii 250 MG CAP PO SCH (09:27)
[2019-09-20] MEDS: Apixaban 2.5 MG TAB PO SCH ×2 (09:28→21:54)
[2019-09-20] MEDS: Dutasteride 0.5 MG CAP PO SCH (09:28)
[2019-09-20] MEDS: Finasteride 5 MG TAB PO SCH (09:28)
--- NOTE | 2019-09-20 11:34 | CT ---
CT CHEST WITHOUT CONTRAST: INDICATIONS: Pleural effusion and shortness of breath. Possible Covid-19 patient. Cough and shortness of breath. COMPARISON: Prior chest CT from 04/09/2019. Bilateral pleural effusions and bibasilar atelectasis and left basila r consolidation was present on that exam. A rounded nodular mass in the right lower lobe with a centr al calcification was also noted on that study. FINDINGS: Small to moderate left pleural effusion is again seen. There is dense consolidation in the left lung base with air bronchograms, similar to the prior exam. Minimal right effusion today. No evidence of right lung infiltrate. The rounded mass in the peripheral right lower lobe abutting the pleural surface with central calcifi cation is again seen. This mass measures 3 cm and is stable. There is mild cardiomegaly and mild vascular engorgement. The mediastinum is otherwise unremarkable. Images through the upper abdomen are unremarkable. IMPRESSION: Small to moderate left effusion and left basilar atelectasis and consolidation, similar to the prior examination. This could represent left basilar pneumonia, superimposed with effusion and atelectasis. The findings are not typical for Covid-19 but could be seen with other nonspecific pneumonia. The mass in the right lower lobe with central calcification is again seen and is stable. No significa nt right lung process. POS: AGW
[2019-09-20] MEDS ORDERED: Doxycycline 100 MG CAP PO SCH (12:30)
[2019-09-20] MEDS: Tamsulosin HCl 0.4 MG CAP PO SCH (14:09)
[2019-09-20] MEDS: PATIENT'S HOME MEDICATION PO SCH (15:27)
[2019-09-20] MEDS: cefTRIAXone\\ROCEPHIN 1 GM in Sodium Chloride 0.9% 100 ML IVPB SCH (15:32)
--- NOTE | 2019-09-20 15:57 | PDOC.HOSPP ---
- Subjective Encounter Date: 09/20/19 Encounter Time: 15:00 Subjective: Patient seen and examined for UZMA/Gen weakness. Feeling better. No CP. No new complaints. No overnight events - Objective Vital Signs & Weight: Vital Signs (12 hours) Temp Pulse Resp BP Pulse Ox 09/20/19 15:35 97.7 F 94 20 118/69 93 L 09/20/19 12:03 98.1 F 76 16 122/61 09/20/19 07:47 95 09/20/19 07:20 97.8 F 93 20 118/62 95 09/20/19 05:00 97.7 F 75 18 124/59 L 94 L Weight Weight 206 lb 8 oz I&O: 09/19/19 09/20/19 09/21/19 06:59 06:59 06:59 Intake Total 300 Output Total 600 Balance -300 Result Diagrams: 09/20/19 04:03 09/20/19 04:04 Additional Labs: Accuchecks 09/20/19 09/20/19 12:06 05:28 POC Glucose 89 78 Radiology Reviewed by me: Yes (CT chest - B/L pleural eff) EKG Reviewed by me: Yes (Tele paced/NSVT) Hospitalist ROS - Review of Systems Cardiovascular: denies: chest pain, palpitations, orthopnea, paroxysmal noc. dyspnea, edema, light headedness, other Gastrointestinal: denies: nausea, vomiting, abdominal pain, diarrhea, constipation, melena, hematochezia, other Genitourinary: denies: dysuria, frequency, incontinence, hematuria, retention, other - Medication Medications: Active Medications Generic Name Dose Route Start Last Admin Trade Name Jasonq PRN Reason Stop Dose Admin Apixaban 2.5 mg 09/19/19 21:00 09/20/19 09:28 Eliquis PO 2.5 mg BID BERNARDINO Administration Atorvastatin Calcium 20 mg 09/19/19 21:00 09/19/19 22:53 Lipitor PO 20 mg HS BERNARDINO Administration Dutasteride 0.5 mg 09/20/19 09:00 09/20/19 09:28 Avodart PO 0.5 mg DAILY BERNARDINO Administration Finasteride 5 mg 09/20/19 09:00 09/20/19 09:28 Proscar PO 5 mg DAILY BERNARDINO Administration Ceftriaxone Sodium 1 gm/ 100 mls @ 200 mls/hr 09/20/19 16:00 09/20/19 15:32 Sodium Chloride IVPB 100 mls 1600 BERNARDINO Administration Pantoprazole Sodium 40 mg 09/20/19 09:00 09/20/19 09:28 Protonix PO 40 mg DAILY BERNARDINO Administration Patient Own Medication 0 each 09/20/19 14:45 09/20/19 15:27 Patient's Home Medication PO 1 each DAILY BERNARDINO Administration Saccharomyces Boulardii 250 mg 09/20/19 09:00 09/20/19 09:27 Florastor PO 250 mg DAILY BERNARDINO Administration Sertraline HCl 100 mg 09/20/19 09:00 09/20/19 09:28 Zoloft PO 100 mg DAILY BERNARDINO Administration Tamsulosin HCl 0.4 mg 09/20/19 14:00 09/20/19 14:09 Flomax PO 0.4 mg 1400 BERNARDINO Administration - Exam General Appearance: NAD Neck: supple Heart: RRR, no gallops, no rubs, normal peripheral pulses Respiratory: no wheezes, normal chest expansion, rales (at bases), rhonchi Gastrointestinal: non-tender, non-distended, no guarding, no rigidity Extremities: no cyanosis, no clubbing Extremities - other findings: trace edema Neurological: no new deficit Psychiatric: normal affect, normal behavior, A&O x 3 Hosp A/P - Plan plan discussed w/ family Gen weakness UZMA on CKD 3 Hypotension prob due to dehydration Chronic systolic HF 25-30% CA Pneumonia ?Pneumococcal - POA CLL ?UTI NSVT DM2 PLAN: ACEI/ARB on hold due to UZMA Restart Coreg at low dose if ok with Dr Woodward AM labs Dr Woodward's input appreciated Restart Ibrutinib Cont sliding scale Add Doxycycline Cont Ceftriaxone
[2019-09-20] MEDS: Milrinone Lactate/D5W 20 MG in Premix Bag 1 BAG IV SCH (16:38)
[2019-09-20] MEDS: Acetaminophen 325 MG TAB PO PRN (16:39)
[2019-09-20] MEDS: Atorvastatin Calcium 20 MG TAB PO SCH (21:54)
[2019-09-20] MEDS: Doxycycline 100 MG CAP PO SCH (21:54)
[2019-09-21 04:42] LABS: ALT (SGPT) 21 U/L (8-55); AST (SGOT) 21 U/L (5-34); Albumin 3.1 g/dL (3.4-4.8); Alkaline Phosphatase 55 U/L (40-110); Anion Gap 17 mmol/L (10-20); BUN (Urea Nitrogen) 51 mg/dL (8.4-25.7); Bilirubin, Total 0.4 mg/dL (0.2-1.2); Calc. Creatinine Clearance 29 mL/min (70-130); Calcium 8.5 mg/dL (7.8-10.44); Carbon Dioxide 20 mmol/L (23-31); Chloride 108 mmol/L (98-107); Estimated GFR-MDRD 26; Glucose 116 mg/dL (83-110); Potassium 4.8 mmol/L (3.5-5.1); Protein, Total 6.1 g/dL (5.8-8.1); Sodium 140 mmol/L (136-145)
[2019-09-21 04:46] LABS: Band 1 % (5-11); Eosinophils 3 % (0-10); Hemoglobin 11.7 g/dL (14.0-18.0); Lymphocytes 58 % (21-51); MDiff Complete? YES; Mean Corpuscular HGB CONC 33.2 g/dL (32.0-36.0); Mean Corpuscular Volume 99.4 fL (78.0-98.0); Mean Platelet Volume 8.4 fL (7.4-10.4); Monocytes 5 % (0-10); Neutrophil 31 % (42-75); Platelet Count 153 thou/uL (130-400); RBC Distribution Width 13.9 % (11.5-14.5); Reactive Lymphocytes 2 % (0-10); Red Blood Cell (RBC) Count 3.55 mill/uL (4.70-6.10); White Blood Cell (WBC) Count 9.4 thou/uL (4.8-10.8)
--- NOTE | 2019-09-21 07:56 | PRG ---
DATE OF SERVICE: 09/20/2019 SUBJECTIVE: Mr. Pierre Rowland had an excellent morning. He is awake, is talkative, is much more energetic. Surprisingly, he is not really coughing today at all, and his nausea seems to be abated. This is an entirely different picture from the story he and his family presented yesterday. However, he still has some shortness of breath and has some chest pressure. REVIEW OF SYSTEMS: GENERAL: There is no fever or chills. EYES: He still has diminishment vision in his left eye. PULMONARY: See HPI. CARDIOVASCULAR: He has some palpitations, but there is no syncope. GI: Nausea has clearly diminished. : He can urinate. NEUROLOGIC: There is no focal deficits or weakness. MUSCULOSKELETAL: He did not complain of joint pains. INTEGUMENT: He does not complain of rashes or skin breakdown. MEDICATION: Current cardiac medication is none. DIAGNOSTIC STUDIES: Telemetry was reviewed. He has a repeated recurring large amount of ectopy. There is bigeminy. There is 3-beat nonsustained ventricular tachycardia like morphology. There is a lot of variability, looks quite unstable. Dr. Crescencio Mathew, EP sanitation manager was consulted. He decided to increase the lower rate limit. Now the patient is being A paced and V paced to 85 beats per minute, this seemed to have reduced amount of ectopy. PHYSICAL EXAMINATION: VITAL SIGNS: Oxygen saturation 93%, blood pressure 118/69, heart rate is 94. GENERAL: He is alert and conversational, much more energetic today. HEENT: Show EOMI. Oropharynx is benign with moist mucosa without erythema, no exudate. NECK: The JVP is actually more elevated today at about 11 cm. That is much more elevated than yesterday. PULMONARY: He has nearly completely absent breath sounds in most of the left lung. In the top side of left lung there is wheeze. The right side of his lung has much better air movement. However, there are right basilar crackles. CARDIAC: Regular, is irregular sometimes and there is 2/6 holosystolic murmur with some radiation to the left axilla. ABDOMEN: Large, soft, and nontender. EXTREMITIES: There is now a slight pedal to above-ankle edema in his lower extremities. LABORATORY VALUES: Sodium 139, potassium of 4.6, BUN at 57, creatinine at 2.45 , so this is an excellent improvement from 3.0. ASSESSMENT: 89-year-old gentleman is recovering from acute renal injury due to hypovolemia. It is not clearcut why he gets hypovolemia. If he truly have diarrhea that could have done it. Per the CT scan done today, he has a large amount of left lung consolidation and at least moderate amount of pleural effusion. It could be that was generating his cough. Since the consolidations are completed with closure of those bronchus there is no more cough because it is completely closed off his bronchials from that region. His BNP has risen from 86 to 372 shows that his heart failure is again setting back in and he is becoming more volume overloaded. At this time, we can not really use diuretics because it will worsen his renal function. Consequently, we will need to add inotropic support to perfuse kidneys to allow initiation of diuresis and some mild heart failure medications. RECOMMENDATIONS: Please see the following for recommendations; 1. Thank you Dr. Crescencio Mathew need for changing his paced rate to eliminate most of the ectopy. 2. Start Milrinone 0.125 mcg/kg/min. If his systolic blood pressure is greater than 100 mmHg after 1 hour increase to 0.25 mcg/kg/min. 3. Please start Toprol-XL 12.5 mg q.12 hours. This is to quiet down his ectopy. In the termite inspector this will be used as a heart failure medication. This will take place of the carvedilol. The reason why we did this is because Toprol-XL has a better rate control and better prevention of ectopy and less effect on blood pressure. Once milrinone is at 0.25, at that point, we can initiate gentle diuresis, likely tomorrow morning. I appreciate primary team starting antibiotics. It has been a pleasure taking care of Pierre Rowland. Please feel free to call me if you have any questions. Job ID: [id number] MTDD
[2019-09-21] MEDS: Saccharomyces boulardii 250 MG CAP PO SCH (08:33)
[2019-09-21] MEDS: Allopurinol 100 MG TAB PO SCH (08:34)
[2019-09-21] MEDS: Dutasteride 0.5 MG CAP PO SCH (08:34)
[2019-09-21] MEDS: Finasteride 5 MG TAB PO SCH (08:34)
[2019-09-21] MEDS: Doxycycline 100 MG CAP PO SCH ×2 (08:34→20:10)
[2019-09-21] MEDS: PATIENT'S HOME MEDICATION PO SCH (08:37)
[2019-09-21] MEDS: Apixaban 2.5 MG TAB PO SCH ×2 (08:39→20:10)
[2019-09-21] MEDS: Acetaminophen 325 MG TAB PO PRN ×2 (10:04→20:11)
--- NOTE | 2019-09-21 10:26 | CON ---
DATE OF CONSULTATION: 09/21/2019 REFERRING BOOK JACKET COVER MACHINE OPERATOR: Cam Woodward. REASON FOR CONSULTATION: Nonsustained ventricular tachycardia, EMAIL DEPLOYMENT SPECIALIST-D. HISTORY OF PRESENT ILLNESS: Mr. Rowland is a pleasant 89-year-old male with history of chronic systolic heart failure, nonrevascularizable coronary artery disease, and renal failure. He was admitted with acute exacerbation of chronic systolic heart failure along with sepsis, hypotension and acute renal failure. He has positive blood cultures and was started on antibiotics. Dr. Woodward started Milrinone. He also increased his Toprol-XL. On telemetry, he has atrial paced rhythm with biventricular pacing. He has frequent ventricular ectopy with episodes of nonsustained ventricular tachycardia up to five beats in duration. Currently, he is able to lie flat. He has mild dyspnea. No exacerbating or alleviating factors. No chest discomfort, syncope, or palpitations. I have interrogated his [employer] EMAIL DEPLOYMENT SPECIALIST-D and have reprogrammed it to increase his lower rate limit at 80 beats per minute. His mode is DDD. Rate response is not on due to his inactivity. CARDIAC IMAGIN05/17/19 Echo: Mild LAE. EF 25-30%. Aortic sclerosis. Mild MR & AR. Mildly dilated aortic root at 4.5 cm. PAST MEDICAL HISTORY: 1. Chronic systolic heart failure due to ischemic cardiomyopathy. 2. Coronary artery disease, not a candidate for revascularization. 3. Chronic lymphocytic leukemia. 4. Left pleural effusion. 5. Type 2 diabetes mellitus. 6. Horseshoe kidney. 7. Tremors. PAST SURGICAL HISTORY: 1. [employer] EMAIL DEPLOYMENT SPECIALIST-D. 2. Cholecystectomy. 3. Lithotripsy with stent placement. 4. Cardiac imaging in March 2019, echo with ejection fraction of 25% to 30%. ALLERGIES: NO KNOWN DRUG ALLERGIES. SOCIAL HISTORY: , four children. No tobacco or alcohol. He lives with his younger son. He requests full code. FAMILY HISTORY: Positive for cancer in both parents. OUTPATIENT MEDICATIONS: Reviewed. He is on guideline-directed medical therapy. PHYSICAL EXAMINATION: GENERAL: Alert and oriented x4. No apparent distress. VITAL SIGNS: Afebrile. Blood pressure 108/56, oxygen saturation 93% on room air. Pulse 93, respiratory rate 12. HEENT: No lesions. Sclerae clear. SKIN: No lesions. CARDIOVASCULAR: Regular rate and rhythm. No murmurs, gallops, or rubs. LUNGS: Clear to auscultation bilaterally. Normal respiratory effort. EXTREMITIES: 1+ edema bilaterally. EKG: Atrial ventricular paced with biventricular pacing. LABORATORY DATA: Hemoglobin 12.8, platelets 172. Sodium 140, potassium 4.8, BUN 51, creatinine 2.3. AST 21, ALT 21. IMPRESSION: 1. Nonsustained ventricular tachycardia with frequent ventricular ectopy. I have increased his lower rate limit to 80 beats per minute to see if we can suppress his ectopy. 2. EMAIL DEPLOYMENT SPECIALIST-D. I have interrogated his device today, which shows normal function. 3. Acute exacerbation of chronic systolic heart failure. Milrinone started by Dr. Woodward yesterday. 4. I have discussed the case with Dr. Woodward and the patient. Job ID: [id number] [facility]
--- NOTE | 2019-09-21 12:50 | PDOC.HOSPP ---
- Subjective Encounter Date: 09/21/19 Encounter Time: 10:30 Subjective: No overnight events per RN - Objective Vital Signs & Weight: Vital Signs (12 hours) Temp Pulse Resp BP Pulse Ox 09/21/19 09:00 96.9 F L 93 17 108/56 L 93 L 09/21/19 08:00 93 L 09/21/19 04:00 98 F 71 17 124/71 96 09/21/19 01:00 81 118/69 Weight Weight 204 lb 14.4 oz I&O: 09/20/19 09/21/19 09/22/19 06:59 06:59 06:59 Intake Total 300 204 Output Total 600 650 Balance -300 -446 Result Diagrams: 09/21/19 04:03 09/21/19 04:03 Additional Labs: Accuchecks 09/21/19 09/20/19 09/20/19 06:12 21:52 15:44 POC Glucose 101 105 103 09/20/19 12:06 POC Glucose 89 EKG Reviewed by me: Yes (Tele - Paced) Hospitalist ROS - Review of Systems Respiratory: denies: cough, dry, shortness of breath, hemoptysis, SOB with excertion, pleuritic pain, sputum, wheezing, other Cardiovascular: denies: chest pain, palpitations, orthopnea, paroxysmal noc. dyspnea, edema, light headedness, other - Medication Medications: Active Medications Generic Name Dose Route Start Last Admin Trade Name Freq PRN Reason Stop Dose Admin Acetaminophen 650 mg 09/19/19 17:40 09/21/19 10:04 Tylenol PO 650 mg Q4H PRN Administration Headache/Fever/Mild Pain (1-3) Allopurinol 100 mg 09/21/19 09:00 09/21/19 08:34 Zyloprim PO 100 mg DAILY BERNARDINO Administration Apixaban 2.5 mg 09/19/19 21:00 09/21/19 08:39 Eliquis PO 2.5 mg BID BERNARDINO Administration Atorvastatin Calcium 20 mg 09/19/19 21:00 09/20/19 21:54 Lipitor PO 20 mg HS BERNARDINO Administration Doxycycline Hyclate 100 mg 09/20/19 21:00 09/21/19 08:34 Vibramycin PO 100 mg BID BERNARDINO Administration Dutasteride 0.5 mg 09/20/19 09:00 09/21/19 08:34 Avodart PO 0.5 mg DAILY BERNARDINO Administration Finasteride 5 mg 09/20/19 09:00 09/21/19 08:34 Proscar PO 5 mg DAILY BERNARDINO Administration Ceftriaxone Sodium 1 gm/ 100 mls @ 200 mls/hr 09/20/19 16:00 09/20/19 15:32 Sodium Chloride IVPB 100 mls 1600 BERNARDINO Administration Milrinone Lactate/Dextrose 20 100 mls @ 7.02 mls/hr 09/20/19 16:00 09/20/19 16:38 mg/ Device IV 100 mls INF BERNARDINO Administration Protocol 0.25 MCG/KG/MIN Metoprolol Succinate 12.5 mg 09/21/19 09:00 09/21/19 08:34 Toprol Xl PO 12.5 mg BID BERNARDINO Administration Pantoprazole Sodium 40 mg 09/20/19 09:00 09/21/19 08:34 Protonix PO 40 mg DAILY BERNARDINO Administration Patient Own Medication 0 each 09/20/19 14:45 09/21/19 08:37 Patient's Home Medication PO 1 each DAILY BERNARDINO Administration Saccharomyces Boulardii 250 mg 09/20/19 09:00 09/21/19 08:33 Florastor PO 250 mg DAILY BERNARDINO Administration Sertraline HCl 100 mg 09/20/19 09:00 09/21/19 08:34 Zoloft PO 100 mg DAILY BERNARDINO Administration Tamsulosin HCl 0.4 mg 09/20/19 14:00 09/20/19 14:09 Flomax PO 0.4 mg 1400 BERNARDINO Administration Hosp A/P - Plan DVT proph w/SCDs Gen weakness - multifactorial UZMA on CKD 3 Hypotension prob due to dehydration Chronic systolic HF 25-30% CA Pneumonia ?Pneumococcal CLL ?UTI NSVT DM2 PLAN: Renal function improving ACEI/ARB on hold due to UZMA Cont Toprol XL On Milrinone drip Cont Ibrutinib/sliding scale and other meds as above Cont Ceftriaxone/Doxycycline AM labs Pt not seen due to conserve PPE. Already seen by EP earlier today.
[2019-09-21] MEDS ORDERED: Furosemide 40 MG/4 ML VIAL SLOW IVP SCH (14:30)
[2019-09-21] MEDS: Tamsulosin HCl 0.4 MG CAP PO SCH (14:40)
--- NOTE | 2019-09-21 14:56 | PRG ---
DATE OF SERVICE: 09/21/2019 SUBJECTIVE: Mr. Rowland had a variable day. He said he is doing well. He believes his chest pressure has decreased. He still has some shortness of breath. He believes it is a little better. However, he said he now has returned to cough a little bit. REVIEW OF SYSTEMS: CONSTITUTIONAL: There is no fever or chills. HEENT: There is no changing in vision, hearing, or swallowing. PULMONARY: Please see HPI. CARDIOVASCULAR: There is no palpitations or syncope. GI: He still has some nausea. : He said he can urinate but the output has been low. NEUROLOGIC: There are no focal deficits or weaknesses. INTEGUMENT: There is no new breakdown. MUSCULOSKELETAL: He may have some back pains. MEDICATIONS: Current cardiac medications include 1. Milrinone now at 0.25 mcg/kg/minute. 2. Apixaban at 2.5 mg b.i.d. 3. Toprol-XL at 12.5 mg p.o. b.i.d. 4. Atorvastatin 20 mg p.o. at bedtime. His antibiotics include 1. Ceftriaxone 1 g daily. 2. Doxycycline 100 mg b.i.d. PHYSICAL EXAMINATION: VITAL SIGNS: His telemetry is reviewed. It is predominantly A-paced, V-paced rhythm. There is some A-sense, V-paced and there are frequent ectopies, but less so than 2 days ago. His current lower is 80. I believe Dr. Crescencio Mathew has adjusted the rate down to 80 beats per minute today. Current set of vitals include heart rate of 93, blood pressure 108/56. GENERAL: He is alert, conversational, but appears a bit short of breath. He is unable to sustain long sentences. He does have a few cough. NECK: His JVP is elevated about 12 cm. PULMONARY: Each time I ask him to take a deep breath, he will cough, then has to wait a bit after cough ceases. This happens almost every single time he takes a deep breath. There is wheeze at the left upper lobe, left lower two-third essentially absent breath sounds. His right lung has good air movement. There are some coarse breath sounds on mid and there are right basilar crackles. CARDIAC: Mostly regular rhythm with occasional irregularity. There is 2/6 holosystolic murmur at the apex with radiation to the left axilla. ABDOMEN: Soft, nontender. Positive bowel sounds. EXTREMITIES: Lower extremity have some pitting edema about 0.5 cm from his feet up to about 1 foot above the ankles. He does have quite a bit of loose tissue, but when you push in, there is indention. LABORATORY DATA: Sodium 140, potassium 4.8, chloride 108, bicarb 20, BUN 51, and creatinine is 2.37. This creatinine 2.37 is an improvement from yesterday. Out of two blood cultures from his arm is positive for gram-positive rods. ASSESSMENT: 89-year-old male has likely pneumonia. This is seen by CT scan and consolidation in the left lung. He also has at least moderate pleural effusions in the left lung. Unfortunately, he is more tachypneic today. This is worse than yesterday. This is his primary insult. At this point, his heart is an innocent bystander. However, his increasing tachypnea could be due to increased edema. Consequently, we will need to be careful to give him diuresis. With augmentation with milrinone, he should be able to withstand diuresis. Please see the following for detailed recommendations. RECOMMENDATIONS: 1. Please provide albumin 25 g IV q.12 hours for 2 days, that is to draw fluid back in the vessel. 2. Please give Lasix 40 mg IV one dose. We will follow his output. We will not give more than once per day. 3. If the patient drops his blood pressure to 90 mm below, we will need to start dobutamine at 2.5 mcg/mL/minute to bring it back up. 4. Agree with empiric antibiotics. This seemed to have helped. 5. Appreciate Dr. Mathew in care for management of CREDIT PORTFOLIO MANAGER-D device. I notice that the basal rate has been changed to 80. 6. Please provide oxygen to patient when he wants it especially when he goes to sleep. 7. Please consider consulting Pulmonary for combination diagnostic and therapeutic thoracentesis. This turning out to be a bit tenuous patient. It has been a pleasure taking care of him. If you have any questions, please give me a call. Job ID: [id number] [facility]
[2019-09-21] MEDS: cefTRIAXone\\ROCEPHIN 1 GM in Sodium Chloride 0.9% 100 ML IVPB SCH (16:58)
[2019-09-21] MEDS: Albumin 25% 25 GM/100 ML BOT IVPB SCH (16:59)
[2019-09-21] MEDS: Atorvastatin Calcium 20 MG TAB PO SCH (20:10)
[2019-09-21] MEDS: Milrinone Lactate/D5W 20 MG in Premix Bag 1 BAG IV SCH (22:33)
[2019-09-22] MEDS: Albumin 25% 25 GM/100 ML BOT IVPB SCH ×2 (03:25→14:06)
[2019-09-22 05:05] LABS: ALT (SGPT) 17 U/L (8-55); AST (SGOT) 15 U/L (5-34); Albumin 3.5 g/dL (3.4-4.8); Alkaline Phosphatase 47 U/L (40-110); Anion Gap 15 mmol/L (10-20); BUN (Urea Nitrogen) 49 mg/dL (8.4-25.7); Bilirubin, Total 0.4 mg/dL (0.2-1.2); Calc. Creatinine Clearance 28 mL/min (70-130); Calcium 8.7 mg/dL (7.8-10.44); Carbon Dioxide 19 mmol/L (23-31); Chloride 109 mmol/L (98-107); Estimated GFR-MDRD 25; Globulin 2.5 g/dL (2.4-3.5); Glucose 92 mg/dL (83-110); Magnesium 2.3 mg/dL (1.6-2.6); Potassium 4.1 mmol/L (3.5-5.1); Sodium 139 mmol/L (136-145)
[2019-09-22 05:46] LABS: Band 5 % (5-11); Eosinophils 2 % (0-10); Hemoglobin 10.5 g/dL (14.0-18.0); Lymphocytes 61 % (21-51); MDiff Complete? YES; Mean Corpuscular HGB CONC 33.8 g/dL (32.0-36.0); Mean Corpuscular Hemoglobin 33.4 pg (27.0-31.0); Mean Corpuscular Volume 98.8 fL (78.0-98.0); Mean Platelet Volume 8.5 fL (7.4-10.4); Monocytes 6 % (0-10); Neutrophil 26 % (42-75); Platelet Count 139 thou/uL (130-400); RBC Distribution Width 13.7 % (11.5-14.5); Red Blood Cell (RBC) Count 3.16 mill/uL (4.70-6.10); White Blood Cell (WBC) Count 7.5 thou/uL (4.8-10.8)
--- NOTE | 2019-09-22 08:33 | PDOC.EP ---
- Subjective Date: 09/22/19 Time: 08:30 Interval History: Feels better. Dyspnea improved. No chest discomfort orthopnea or falls. - Objective Allergies/Adverse Reactions: Allergies Allergy/AdvReac Type Severity Reaction Status Date / Time wheat Allergy Verified 09/19/19 19:39 Current Medications Acetaminophen (Tylenol) 650 mg PO Q4H PRN PRN Reason: Headache/Fever/Mild Pain (1-3) Last Admin: 09/21/19 20:11 Dose: 650 mg Albumin Human (Albumin 25%) 25 gm IVPB 0300,1500 [facility] Stop: 09/23/19 03:01 Last Admin: 09/22/19 03:25 Dose: 25 gm Allopurinol (Zyloprim) 100 mg PO DAILY [facility] Last Admin: 09/21/19 08:34 Dose: 100 mg Apixaban (Eliquis) 2.5 mg PO BID [facility] Last Admin: 09/21/19 20:10 Dose: 2.5 mg Atorvastatin Calcium (Lipitor) 20 mg PO HS [facility] Last Admin: 09/21/19 20:10 Dose: 20 mg Dextrose/Water (Dextrose 50%) 25 gm SLOW IVP PRN PRN PRN Reason: Hypoglycemia Doxycycline Hyclate (Vibramycin) 100 mg PO BID [facility] Last Admin: 09/21/19 20:10 Dose: 100 mg Dutasteride (Avodart) 0.5 mg PO DAILY [facility] Last Admin: 09/21/19 08:34 Dose: 0.5 mg Finasteride (Proscar) 5 mg PO DAILY [facility] Last Admin: 09/21/19 08:34 Dose: 5 mg Glucagon (Glucagon) 1 mg IM PRN PRN PRN Reason: Hypoglycemia Ceftriaxone Sodium 1 gm/ (Sodium Chloride) 100 mls @ 200 mls/hr IVPB 1600 [facility] Last Admin: 09/21/19 16:58 Dose: 100 mls Dextrose/Water (D5w) 1,000 mls @ 0 mls/hr IV .Q0M PRN PRN Reason: Hypoglycemia Milrinone Lactate/Dextrose 20 (mg/ Device) 100 mls @ 7.02 mls/hr IV INF [facility]; Protocol Last Admin: 09/21/19 22:33 Dose: 100 mls Insulin Human Lispro (Humalog) 0 units SC .MODERATE SLIDING SC PRN PRN Reason: Moderate Correctional Scale Insulin Human Lispro (Humalog) 0 units SC .BEDTIME SLIDING SC PRN PRN Reason: Bedtime Correctional Scale Metoprolol Succinate (Toprol Xl) 12.5 mg PO BID [facility] Last Admin: 09/21/19 08:34 Dose: 12.5 mg Ondansetron HCl (Zofran Odt) 4 mg PO Q6H PRN PRN Reason: Nausea/Vomiting Ondansetron HCl (Zofran) 4 mg IVP Q6H PRN PRN Reason: Nausea/Vomiting Pantoprazole Sodium (Protonix) 40 mg PO DAILY [facility] Last Admin: 09/21/19 08:34 Dose: 40 mg Patient Own Medication (Patient's Home Medication) 0 each PO DAILY [facility] Last Admin: 09/21/19 08:37 Dose: 1 each Saccharomyces Boulardii (Florastor) 250 mg PO DAILY [facility] Last Admin: 09/21/19 08:33 Dose: 250 mg Sertraline HCl (Zoloft) 100 mg PO DAILY [facility] Last Admin: 09/21/19 08:34 Dose: 100 mg Tamsulosin HCl (Flomax) 0.4 mg PO 1400 [facility] Last Admin: 09/21/19 14:40 Dose: 0.4 mg Vital Signs & Weight: Vital Signs Temp Pulse Resp BP Pulse Ox 09/22/19 03:31 98.2 F 71 17 104/57 L 96 09/21/19 22:36 80 16 100/54 L 96 Weight 204 lb 4.8 oz I/O: I/O 09/21/19 09/22/19 09/23/19 06:59 06:59 06:59 Intake Total 204 954 Output Total 650 1000 [facility]46 - Quality Measures CV meds: Eliquis: Yes - Physical Exam Cardiology: regular rate and rhythm, no murmur Lungs: bibasilar rales Extremities: + edema B - Labs Result Diagrams: 09/22/19 04:28 09/22/19 04:28 - Assessment/Plan Assessment/Plan: NSVT/Frequent Ectopy: Lower rate limit of BRICK SHADER-D increased to 80 BPM Anticoagulation - On Elqiuis 2.5 mg BID. No evidence of active bleeding BRICK SHADER-D - Normal function
[2019-09-22] MEDS: Dutasteride 0.5 MG CAP PO SCH (08:44)
[2019-09-22] MEDS: Doxycycline 100 MG CAP PO SCH ×2 (08:44→20:32)
[2019-09-22] MEDS: Saccharomyces boulardii 250 MG CAP PO SCH (08:44)
[2019-09-22] MEDS: Allopurinol 100 MG TAB PO SCH (08:45)
[2019-09-22] MEDS: Apixaban 2.5 MG TAB PO SCH ×2 (08:45→20:32)
[2019-09-22] MEDS: Finasteride 5 MG TAB PO SCH (08:45)
[2019-09-22] MEDS: PATIENT'S HOME MEDICATION PO SCH (08:46)
--- NOTE | 2019-09-22 11:57 | CON ---
DATE OF CONSULTATION: 09/22/2019 HISTORY OF PRESENT ILLNESS: An 89-year-old gentleman, who was admitted to the hospital on . Today is the , being consulted regarding his pleural effusion, possibly pneumonia. He has been on ceftriaxone and doxycycline ever since admission. Though, he denies any chills or sweats. No fever or chills. He had COVID serology, which is negative. His maximum temperature is 98. He was just recently in the hospital. He sees Dr. Taveras. 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 PAST SURGICAL HISTORY: Previous surgeries; multiple thoracenteses, cholecystectomy, tonsils, pacemaker, and gallbladder. SOCIAL HISTORY: Former smoker. MEDICATIONS: Medicines from home include: 1. Imbruvica 280. 2. Entresto. 3. Coreg 6.25. 4. Aspirin. 5. Aricept. 6. Neurontin. 7. Ferrous sulfate. 8. DuoNeb. 9. Simvastatin. 10. Zoloft. 11. Flomax. ALLERGIES: NONE. REVIEW OF SYSTEMS: Ten-point, negative. PHYSICAL EXAMINATION: VITAL SIGNS: Temperature 98, pulse 93, blood pressure 104/57. CHEST: Decreased breath sound, left lung. CARDIAC: Normal S1 and S2. No gallops. ABDOMEN: No masses. LABORATORY DATA: Creatinine 2.4. His x-ray shows left pleural effusion. CT chest shows the pleural effusion, which appears to be loculated from previous thoracentesis. Bibasilar atelectatic changes. IMPRESSION AND PLAN: 1. 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 2. Renal failure. 3. Advanced age. 4. Parkinson disease. 5. Cardiomyopathy. Pulmonary hill, at this stage, thoracentesis is of not much benefit. Effusion appears to be loculated. I am not really sure rather even a pleural catheter to be of any benefit. I may consider switching to oral antibiotics and comfort care. I will notify Dr. Taveras, who has seen him in the past. TIME SPENT: Consultation note of 70 minutes, 50% in direct patient care. Job ID: [id number]
[2019-09-22] MEDS ORDERED: Amiodarone 200 MG TAB PO SCH (12:45)
[2019-09-22] MEDS: Tamsulosin HCl 0.4 MG CAP PO SCH (13:11)
--- NOTE | 2019-09-22 13:38 | PRG ---
DATE OF SERVICE: 09/22/2019 SERVICE: Advanced Heart Failure Cardiology Consulting Service. SUBJECTIVE: Mr. Rowland had a better day. His cough went away. Now, he can take a deep breath without coughing. This has resolved after receiving Lasix 40 mg IV yesterday that helped to relieve his chest congestion. He is able to eat. However, he understands his situation is dire. REVIEW OF SYSTEMS: GENERAL: He is more energetic, breathing easy. There is no fever or chills. HEENT: There is no change in vision, hearing, or swallowing. PULMONARY: Please see HPI. GASTROINTESTINAL: Please see HPI. GENITOURINARY: He considers to urinate. NEUROLOGIC: There is no focal deficit or weakness; however, there is a chronic resting tremor due to Parkinson disease. MUSCULOSKELETAL: He does complain of joint pains. INTEGUMENTARY: He does not complain of any skin breakdown or new rashes. CARDIAC MEDICATIONS: Include, 1. Apixaban 2.5 mg b.i.d. 2. Milrinone 0.25 mcg/kg/minute IV GTT. 3. Toprol-XL 12.5 mg b.i.d. His antibiotics include ceftriaxone and also doxycycline. OBJECTIVE: VITAL SIGNS: His vitals include heart rate between 70 and 80, blood pressure at 104/57. His telemetry was reviewed. He is mainly A-paced, V-paced. However, he has frequent runs of 3 to 4 beats of NSVT. GENERAL: He is alert and conversational, reclining comfortably in bed. He is less short of breath today. He is able to talk in longer sentences. He is more energetic today. He is eating. HEENT: Showed EOMI. Oropharynx is benign without erythema. No exudate. There is moist mucosa. NECK: His JVP is about 10 or 11 cm. PULMONARY: There is absent breath sounds in the lower three-quarters of the left lung. On top of the left lung, there is wheeze. On right lung top three- quarters, there is good air movement. However, there are slight basilar crackles at right base. CARDIAC: Regular rate and rhythm with occasional irregularity. There is 2/6 holosystolic murmur at the apex with radiation to axilla. ABDOMEN: Large, soft, nontender. Positive bowel sounds. EXTREMITIES: His lower extremities has about 1+ edema from feet to 18 inches above his ankles. LABORATORY DATA: His white cell count came down to 7.5, hemoglobin is 10.5, and platelet is at 139. The chemistry shows sodium 139, potassium 4.1, chloride 109, bicarb 19. His BUN has juan ramon slightly to 49 and the creatinine also juan ramon a bit to 2.42. ASSESSMENT: 89-year-old gentleman has most likely return to his functional baseline. He has recovered in terms of functionality from hypovolemia, hypotension, and somewhat from h is acute renal failure. However, maintaining diuresis and preserving the kidney will be a challenge. He is likely to reside in [place] [employer] stage D and [place] Heart Association class 4 heart failure with reduced ejection fraction. He has also quite a bit of ectopy. The best we can do is give him a short run of inotrope to improve the kidneys to try him up a bit more afterwards and give him an oral set of medications that might be able to keep him dry as possible. At this time, I do not suspect reversal of the heart failure would be possible. Combination with his chronic lymphocytic leukemia, large consolidations of the left lung and chronic pleural effusion that is also increasing, hospice may be a good idea. I talked to the patient about this approach. He is open to it. He does want to talk to the about it. He understands this was inevitable. RECOMMENDATIONS: 1. Stop Milrinone. 2. Start amiodarone 200 mg twice a day, first dose now. 3. Start dobutamine at 2.5 mcg/kg/minute. 4. We will watch him because as soon as he has sufficient amount of cardiac output, we will attempt to diurese him again while preserving his renal function. 5. Please consult Palliative Care. It has been a pleasure taking care of Mr. Rowland. If you have any questions, please give me a call. Job ID: [id number] [facility]
[2019-09-22] MEDS: DOBUTamine 500 mg/250 ml 500 MG in Premix Bag 1 BAG IVPB SCH (14:11)
--- NOTE | 2019-09-22 14:45 | PDOC.HOSPP ---
- Subjective Encounter Date: 09/22/19 Encounter Time: 10:30 Subjective: Patient seen and examined for CHF. No CP/fever or cough. No other complaints. No overnight events - Objective Vital Signs & Weight: Vital Signs (12 hours) Temp Pulse Resp BP Pulse Ox 09/22/19 12:00 96.7 F L 78 17 120/61 94 L 09/22/19 08:00 96.9 F L 70 18 103/58 L 93 L 09/22/19 03:31 98.2 F 71 17 104/57 L 96 Weight Weight 204 lb 4.8 oz I&O: 09/21/19 09/22/19 09/23/19 06:59 06:59 06:59 Intake Total 204 954 Output Total 650 1000 Balance -446 -46 Result Diagrams: 09/22/19 04:28 09/22/19 04:28 Additional Labs: Accuchecks 09/22/19 09/22/19 09/21/19 10:59 05:36 20:22 POC Glucose 108 103 122 H 09/21/19 09/21/19 16:58 12:09 POC Glucose 112 H 107 EKG Reviewed by me: Yes (Tele Paced) Hospitalist ROS - Review of Systems Cardiovascular: denies: chest pain, palpitations, orthopnea, paroxysmal noc. dyspnea, edema, light headedness, other Gastrointestinal: denies: nausea, vomiting, abdominal pain, diarrhea, constipation, melena, hematochezia, other - Medication Medications: Active Medications Generic Name Dose Route Start Last Admin Trade Name Freq PRN Reason Stop Dose Admin Acetaminophen 650 mg 09/19/19 17:40 09/21/19 20:11 Tylenol PO 650 mg Q4H PRN Administration Headache/Fever/Mild Pain (1-3) Albumin Human 25 gm 09/21/19 15:00 09/22/19 14:06 Albumin 25% IVPB 09/23/19 03:01 25 gm 0300,1500 BERNARDINO Administration Allopurinol 100 mg 09/21/19 09:00 09/22/19 08:45 Zyloprim PO 100 mg DAILY BERNARDINO Administration Amiodarone HCl 200 mg 09/22/19 12:45 09/22/19 13:11 Cordarone PO 09/22/19 14:45 200 mg NOW BERNARDINO Administration Apixaban 2.5 mg 09/19/19 21:00 09/22/19 08:45 Eliquis PO 2.5 mg BID BERNARDINO Administration Atorvastatin Calcium 20 mg 09/19/19 21:00 09/21/19 20:10 Lipitor PO 20 mg HS BERNARDINO Administration Doxycycline Hyclate 100 mg 09/20/19 21:00 09/22/19 08:44 Vibramycin PO 100 mg BID BERNARDINO Administration Dutasteride 0.5 mg 09/20/19 09:00 09/22/19 08:44 Avodart PO 0.5 mg DAILY BERNARDINO Administration Finasteride 5 mg 09/20/19 09:00 09/22/19 08:45 Proscar PO 5 mg DAILY BERNARDINO Administration Ceftriaxone Sodium 1 gm/ 100 mls @ 200 mls/hr 09/20/19 16:00 09/21/19 16:58 Sodium Chloride IVPB 100 mls 1600 BERNARDINO Administration Dobutamine HCl/Dextrose 500 mg 250 mls @ 6.95 mls/hr 09/22/19 13:00 09/22/19 14:11 / Device IVPB 250 mls INF BERNARDINO Administration Protocol 2.5 MCG/KG/MIN Metoprolol Succinate 12.5 mg 09/21/19 09:00 09/22/19 08:44 Toprol Xl PO 12.5 mg BID BERNARDINO Administration Pantoprazole Sodium 40 mg 09/20/19 09:00 09/22/19 08:45 Protonix PO 40 mg DAILY BERNARDINO Administration Patient Own Medication 0 each 09/20/19 14:45 09/22/19 08:46 Patient's Home Medication PO 1 each DAILY BERNARDINO Administration Saccharomyces Boulardii 250 mg 09/20/19 09:00 09/22/19 08:44 Florastor PO 250 mg DAILY BERNARDINO Administration Sertraline HCl 100 mg 09/20/19 09:00 09/22/19 08:44 Zoloft PO 100 mg DAILY BERNARDINO Administration Tamsulosin HCl 0.4 mg 09/20/19 14:00 09/22/19 13:11 Flomax PO 0.4 mg 1400 EBRNARDINO Administration - Exam General Appearance: NAD Neck: supple Heart: no gallops, no rubs Respiratory: normal chest expansion, rales, rhonchi Gastrointestinal: non-tender, non-distended, no bruit, no guarding Extremities: no cyanosis, no clubbing Neurological: no new deficit Hosp A/P - Plan Gen weakness - multifactorial UZMA on CKD 3 Hypotension prob due to dehydration Chronic systolic HF 25-30% CA Pneumonia ?Pneumococcal Pleural effusion CLL ?UTI - cultures negative NSVT DM2 PLAN: Started on Dobutamine drip with PO Amiodarone Cont Toprol XL ACEI/ARB on hold due to UZMA Cont Ceftriaxone/Doxycycline Off Milrinone drip Cont Ibrutinib/sliding scale and other meds as above AM labs
[2019-09-22] MEDS: cefTRIAXone\\ROCEPHIN 1 GM in Sodium Chloride 0.9% 100 ML IVPB SCH (16:37)
[2019-09-22] MEDS: Acetaminophen 325 MG TAB PO PRN (19:13)
[2019-09-22] MEDS: Atorvastatin Calcium 20 MG TAB PO SCH (20:32)
[2019-09-22] MEDS: Amiodarone 200 MG TAB PO SCH (20:32)
[2019-09-23 08:09] LABS: Hemoglobin 11.2 g/dL (14.0-18.0); Mean Corpuscular HGB CONC 33.6 g/dL (32.0-36.0); Mean Corpuscular Hemoglobin 33.7 pg (27.0-31.0); Mean Platelet Volume 8.3 fL (7.4-10.4); Platelet Count 124 thou/uL (130-400); RBC Distribution Width 13.8 % (11.5-14.5); Red Blood Cell (RBC) Count 3.32 mill/uL (4.70-6.10); White Blood Cell (WBC) Count 6.9 thou/uL (4.8-10.8)
[2019-09-23 08:29] LABS: Band 3 % (5-11); Eosinophils 6 % (0-10); Lymphocytes 46 % (21-51); MDiff Complete? YES; Monocytes 4 % (0-10); Neutrophil 40 % (42-75); Platelet Morphology Comment Appears Decreased; Polychromasia SLIGHT = 2-3 cells (100X) (0-2/hpf)
--- NOTE | 2019-09-23 08:36 | PDOC.EP ---
- Subjective Date: 09/23/19 Time: 08:35 Interval History: No chest discomfort, syncope or falls. Dyspnea unchanged. - Objective Allergies/Adverse Reactions: Allergies Allergy/AdvReac Type Severity Reaction Status Date / Time wheat Allergy Verified 09/19/19 19:39 Current Medications Acetaminophen (Tylenol) 650 mg PO Q4H PRN PRN Reason: Headache/Fever/Mild Pain (1-3) Last Admin: 09/22/19 19:13 Dose: 650 mg Allopurinol (Zyloprim) 100 mg PO DAILY ON LICENSE OF [facility] Last Admin: 09/22/19 08:45 Dose: 100 mg Amiodarone HCl (Cordarone) 200 mg PO BID ON LICENSE OF [facility] Last Admin: 09/22/19 20:32 Dose: 200 mg Apixaban (Eliquis) 2.5 mg PO BID ON LICENSE OF [facility] Last Admin: 09/22/19 20:32 Dose: 2.5 mg Atorvastatin Calcium (Lipitor) 20 mg PO HS ON LICENSE OF [facility] Last Admin: 09/22/19 20:32 Dose: 20 mg Dextrose/Water (Dextrose 50%) 25 gm SLOW IVP PRN PRN PRN Reason: Hypoglycemia Doxycycline Hyclate (Vibramycin) 100 mg PO BID ON LICENSE OF [facility] Last Admin: 09/22/19 20:32 Dose: 100 mg Dutasteride (Avodart) 0.5 mg PO DAILY ON LICENSE OF [facility] Last Admin: 09/22/19 08:44 Dose: 0.5 mg Finasteride (Proscar) 5 mg PO DAILY ON LICENSE OF [facility] Last Admin: 09/22/19 08:45 Dose: 5 mg Glucagon (Glucagon) 1 mg IM PRN PRN PRN Reason: Hypoglycemia Ceftriaxone Sodium 1 gm/ (Sodium Chloride) 100 mls @ 200 mls/hr IVPB 1600 ON LICENSE OF [facility] Last Admin: 09/22/19 16:37 Dose: 100 mls Dextrose/Water (D5w) 1,000 mls @ 0 mls/hr IV .Q0M PRN PRN Reason: Hypoglycemia Dobutamine HCl/Dextrose 500 mg (/ Device) 250 mls @ 6.95 mls/hr IVPB INF ON LICENSE OF [facility]; Protocol Last Admin: 09/22/19 14:11 Dose: 250 mls Insulin Human Lispro (Humalog) 0 units SC .MODERATE SLIDING SC PRN PRN Reason: Moderate Correctional Scale Insulin Human Lispro (Humalog) 0 units SC .BEDTIME SLIDING SC PRN PRN Reason: Bedtime Correctional Scale Metoprolol Succinate (Toprol Xl) 12.5 mg PO BID ON LICENSE OF [facility] Last Admin: 09/22/19 21:50 Dose: 12.5 mg Ondansetron HCl (Zofran Odt) 4 mg PO Q6H PRN PRN Reason: Nausea/Vomiting Ondansetron HCl (Zofran) 4 mg IVP Q6H PRN PRN Reason: Nausea/Vomiting Last Admin: 09/22/19 19:13 Dose: 4 mg Pantoprazole Sodium (Protonix) 40 mg PO DAILY ON LICENSE OF [facility] Last Admin: 09/22/19 08:45 Dose: 40 mg Patient Own Medication (Patient's Home Medication) 0 each PO DAILY ON LICENSE OF [facility] Last Admin: 09/22/19 08:46 Dose: 1 each Saccharomyces Boulardii (Florastor) 250 mg PO DAILY ON LICENSE OF [facility] Last Admin: 09/22/19 08:44 Dose: 250 mg Sertraline HCl (Zoloft) 100 mg PO DAILY ON LICENSE OF [facility] Last Admin: 09/22/19 08:44 Dose: 100 mg Tamsulosin HCl (Flomax) 0.4 mg PO 1400 ON LICENSE OF [facility] Last Admin: 09/22/19 13:11 Dose: 0.4 mg Vital Signs & Weight: Vital Signs Temp Pulse Resp BP Pulse Ox 09/23/19 07:45 97.8 F 94 18 102/59 L 95 09/23/19 03:48 98.9 F 80 16 105/57 L 95 Weight 196 lb 11.2 oz I/O: I/O 09/22/19 09/23/19 09/24/19 06:59 06:59 06:59 Intake Total 954 954 Output Total 1000 450 Balance -46 504 - Quality Measures CV meds: Eliquis: Yes - Physical Exam Neck: supple neck, midline trachea, no JVD/HJR, no masses, no bruit, no lymphadenopathy, no thromegaly Cardiology: regular rate and rhythm, no murmur, regular rate, regular rhythm, PMI nondisplaced Lungs: bibasilar rales Extremities: + edema B - Labs Result Diagrams: 09/23/19 07:44 09/22/19 04:28 - Assessment/Plan Assessment/Plan: NSVT/Frequent Ectopy: Lower rate limit of [employer]-D increased to 80 BPM. Amiodarone 200 mg BID started yesterday. Anticoagulation - On Elqiuis 2.5 mg BID. No evidence of active bleeding [employer]-D - Normal function
[2019-09-23 08:39] LABS: Albumin 3.6 g/dL (3.4-4.8); Anion Gap 12 mmol/L (10-20); BUN (Urea Nitrogen) 39 mg/dL (8.4-25.7); BUN/Creatinine Ratio 17.89; Calc. Creatinine Clearance 30 mL/min (70-130); Calcium 8.8 mg/dL (7.8-10.44); Carbon Dioxide 23 mmol/L (23-31); Chloride 109 mmol/L (98-107); Estimated GFR-MDRD 29; Glucose 76 mg/dL (83-110); Magnesium 2.2 mg/dL (1.6-2.6); Phosphorus 3.6 mg/dL (2.3-4.7); Potassium 4.4 mmol/L (3.5-5.1); Sodium 140 mmol/L (136-145)
[2019-09-23] MEDS: Amiodarone 200 MG TAB PO SCH ×2 (09:11→20:37)
[2019-09-23] MEDS: Saccharomyces boulardii 250 MG CAP PO SCH (09:11)
[2019-09-23] MEDS: Senokot S 8.6-50 MG TAB PO SCH ×2 (09:11→20:37)
[2019-09-23] MEDS: Doxycycline 100 MG CAP PO SCH ×2 (09:12→20:37)
[2019-09-23] MEDS: Apixaban 2.5 MG TAB PO SCH ×2 (09:13→20:37)
[2019-09-23] MEDS: Finasteride 5 MG TAB PO SCH (09:13)
[2019-09-23] MEDS: Allopurinol 100 MG TAB PO SCH (09:13)
[2019-09-23] MEDS: Dutasteride 0.5 MG CAP PO SCH (09:13)
[2019-09-23] MEDS: PATIENT'S HOME MEDICATION PO SCH (09:18)
--- NOTE | 2019-09-23 09:31 | PRG ---
DATE OF SERVICE: 09/23/2019 SUBJECTIVE: I reviewed the data from Dr. Madrigal yesterday, examined the patient today. He says he is breathing well without complaint. OBJECTIVE: VITAL SIGNS: On exam, temperature is 97.8, pulse 94, respirations 18, O2 saturation 95% on 2 L, and blood pressure 102/59. HEENT: Unremarkable. NECK: No adenopathy or JVD. LUNGS: Diminished breath sounds at the left base, right side clear. CARDIAC: S1 and S2. Regular. ABDOMEN: Soft. EXTREMITIES: No edema. ASSESSMENT: Left-sided pleural effusion from chronic lymphocytic leukemia. Right now, it is not large enough to readdress with repeat thoracentesis. It is not large enough to require PleurX catheter. That may change in the future. PLAN: Overall, Mr. Rowland's condition continues to slowly deteriorate. I really think that the more appropriate treatment for this gentleman will be hospice care and DNR. Job ID: [id number]
[2019-09-23] MEDS ORDERED: Furosemide 40 MG/4 ML VIAL SLOW IVP SCH (12:45)
--- NOTE | 2019-09-23 13:04 | PRG ---
DATE OF SERVICE: 09/23/2019 SERVICE: Advanced Heart Failure Cardiology Consulting Service. SUBJECTIVE: Mr. Rowland had a good day. He said he is breathing easier and he is more energetic. His cough is down. He understands his situation is terminal. He believes that hospice is reasonable. He wants to discuss this with his family. REVIEW OF SYSTEMS: GENERAL: There is no fever or chills. HEENT: There is no change in vision, hearing, or swallowing. PULMONARY: Please see HPI. CARDIOVASCULAR: There is no palpitation or syncope. GASTROINTESTINAL: He is still nauseated. GENITOURINARY: He does urinate. NEUROLOGIC: He has Parkinson's resting tremor, but there is no focal deficits or weakness. MUSCULOSKELETAL: He has some back pains. INTEGUMENT: There are no reports of new skin breakdown. MEDICATIONS: Cardiac medications include, 1. Amiodarone 200 mg twice a day. 2. Apixaban 2.5 mg twice a day. 3. Dobutamine 2.5 mcg/kg IV GTT. 4. Toprol-XL 12.5 twice a day. His antibiotics include ceftriaxone 1 g daily and also doxycycline 100 mg twice a day. He also has atorvastatin total 20 mg each night. PHYSICAL EXAMINATION: TELEMETRY: Reviewed. He is A-paced, V-paced with a basal rate of 80. He has a frequent runs of 3 to 4 NSVTs or PVCs, but stable. It did not change much from yesterday, so consequently changing from Milrinone to low-dose dobutamine did not increase his ectopy. VITAL SIGNS: His bedside vitals are heart rate 82 and blood pressure 110/64. However, his oxygen saturation is only 88% on room air. GENERAL: He is alert and conversational, reclining comfortably in bed. He is able to speak in medium-sized sentences. However, when he takes a deep breath, it causes cough. HEENT: Show EOMI. Oropharynx is benign. There is no erythema or exudate. NECK: JVP is roughly about 11 cm. PULMONARY: There is absent breath sounds in the left lung. In the right lung, there is good air movement with slight crackle at the right base. CARDIAC: Regular rate and rhythm with occasional irregularity, 2/6 holosystolic murmur at the apex with radiation to the left axilla. ABDOMEN: Soft and nontender, but large and distended. EXTREMITIES: There is minimal edema of the lower extremities. ASSESSMENT: An 89-year-old gentleman has consolidated pleural effusion in the left lung and chronic lymphocytic leukemia in the right lung and possibly in the left. He also has possible influenza infection in the left lung. None of these are amenable to invasive treatment. Pulmonary decided that thoracentesis will not be helpful. Consequently, there is no solution. The patient is not a candidate for any type of lobectomy or resection of the lung consolidated infected part. With cancer already in there, it may not be helpful. Finally, he is in such a debilitated state and high risk. Any type of thoracic surgery like that will be too risky. Consequently, the most reasonable course of action will be considering hospice. In the meantime, we will provide enough cardiac support with dobutamine and diuretics to keep him comfortable. When the hospice is set and the patient is ready to go home, then I will stop the dobutamine. RECOMMENDATIONS: 1. Continue with dobutamine 2.5 mcg/kg/minute. 2. Continue with amiodarone 200 twice a day right now to suppress arrhythmia. 3. I will adjust pacemaker rate and response as needed for his cardiac output. 4. Lasix 40 mg IV one dose now. 5. We will change to torsemide 20 mg daily. Hopefully, this could be his home dose. 6. He may be going home on very simplified cardiac regimen of amiodarone 200 mg daily, Toprol-XL 12.5 mg twice a day, and torsemide 20 mg daily. This is to keep the arrhythmia away and sufficient diuretic to keep him even. It has been a pleasure taking care of Mr. Rowland. If you have any questions, please give me a call. Job ID: [id number] [facility]TDD
[2019-09-23] MEDS: Tamsulosin HCl 0.4 MG CAP PO SCH (13:05)
--- NOTE | 2019-09-23 13:15 | PDOC.PALCO ---
Palliative Care Consult - Consult Details Requesting Physician: Dr Owen Reason for Consult: goals of care, advance directives assistance, assistance with communication prognosis/disease Family Members Present: Spoke with son and over the phone after assessing patient - Pertinent HPI Mr Rowland was recently discharged from the hospital, he experienced progressing weakness and dizziness with increasing in severity over two weeks and increase in episodes of hypotension. Secondary to complaints paired with onset of dysuria family had patient evaluated in the emergency room. He was admitted for medical management of urinary tract infection and volume depletion. Chronic comorbidities with recent treatment for CLL. - Pertinent PMH CLL, Kidney disease, Obesity, CHF, DM2 - Social History Smoking Status: Never smoker Smoking: no tobacco exposure Alcohol Use: none Drug Use History: none Living Situation: , other (Lives with his son and ) - Medications MAR Reviewed: Yes - Allergies Allergies/Adverse Reactions: Allergies Allergy/AdvReac Type Severity Reaction Status Date / Time No Known Drug Allergies Allergy Verified 09/24/19 17:10 - Subjective Awake, cheerful - ROS Constitutional: alert, weakness Eyes: other (denies vision changes) ENT: other (negative for rhinorrhea, throat irritation) Respiratory: shortness of breath, shortness of breath with extertion Cardiology: edema, light headedness, other (Negative for chest pain) Genitourinary: other (denies dysuria, hematuria) Musculoskeletal: arthritis/arthralgias Neurological: other (denies confusion, changes in speech) Skin: other (denies rash or puritis) Psychological: other - Objective Vital Signs: Vital Signs - Most Recent Temp Pulse Resp BP Pulse Ox 98.1 F 73 16 140/63 97 09/23/19 11:57 09/23/19 11:57 09/23/19 11:57 09/23/19 11:57 09/23/19 11:57 Palliative Performance Scale: 30 - Physical Exam Constitutional: NAD, ill appearing HEENT: moist MMs, sclera anicteric Respiratory: no wheezing, diminished lung sound Cardiovascular: RRR Gastrointestinal: continent, soft, non-tender Genitourinary: continent Musculoskeletal: no cyanosis, diffuse muscle atrophy Neurology: moves all 4 limbs Skin: cap refill <2 seconds Psychiatric: normal affect - Problem List (1) Palliative care encounter Code(s): Z51.5 - ENCOUNTER FOR PALLIATIVE CARE Status: Acute (2) UZMA (acute kidney injury) Code(s): N17.9 - ACUTE KIDNEY FAILURE, UNSPECIFIED Status: Acute (3) Acute on chronic systolic (congestive) heart failure Code(s): I50.23 - ACUTE ON CHRONIC SYSTOLIC (CONGESTIVE) HEART FAILURE Status : Acute (4) Acute respiratory failure with hypoxemia Code(s): J96.01 - ACUTE RESPIRATORY FAILURE WITH HYPOXIA Status: Acute (5) CLL (chronic lymphocytic leukemia) Code(s): C91.10 - CHRONIC LYMPHOCYTIC LEUK OF B-CELL TYPE NOT ACHIEVE REMIS Status: Acute (6) Pleural effusion Code(s): J90 - PLEURAL EFFUSION, NOT ELSEWHERE CLASSIFIED Status: Acute (7) Obesity (BMI 30-39.9) Code(s): E66.9 - OBESITY, UNSPECIFIED Status: Chronic (8) Physical deconditioning Code(s): R53.81 - OTHER MALAISE Status: Chronic - Plan/Recommendations Plan: Visited with and assessed patient. Subsequent conversation with the who them asked I call her son. In conversation with son I attempted to review continued decline and multiple morbidities. Discussed difference between palliative care and Hospice. Son relayed the family and patient wish to continue with aggressive measures for the time, home health and palliative care , then after completing current Chemo with Dr Mccann consider Hospice. Discussed quality of life and realistic expectations of continued aggressive measures. Therapeutic listening and emotional support. Dr Owen notified [75] minutes spent on this encounter with >50% of the time in counseling and coordination of care. Thank you for this very appropriate consult.
[2019-09-23] MEDS: cefTRIAXone\\ROCEPHIN 1 GM in Sodium Chloride 0.9% 100 ML IVPB SCH (16:01)
[2019-09-23 18:36] LABS: Anion Gap 15 mmol/L (10-20); BUN (Urea Nitrogen) 40 mg/dL (8.4-25.7); Calc. Creatinine Clearance 29 mL/min (70-130); Calcium 8.9 mg/dL (7.8-10.44); Carbon Dioxide 22 mmol/L (23-31); Chloride 110 mmol/L (98-107); Estimated GFR-MDRD 27; Glucose 108 mg/dL (83-110); Potassium 4.6 mmol/L (3.5-5.1); Sodium 142 mmol/L (136-145)
--- NOTE | 2019-09-23 18:42 | PDOC.HOSPP ---
- Subjective Encounter Date: 09/23/19 Encounter Time: 08:00 Subjective: Patient seen and examined for UZMA. Feeling better. No CP/SOB at rest. No new complaints. No overnight events - Objective Vital Signs & Weight: Vital Signs (12 hours) Temp Pulse Resp BP Pulse Ox 09/23/19 16:08 98.0 F 69 16 108/58 L 96 09/23/19 11:57 98.1 F 73 16 140/63 97 09/23/19 07:45 97.8 F 94 18 102/59 L 95 Weight Weight 196 lb 11.2 oz I&O: 09/22/19 09/23/19 09/24/19 06:59 06:59 06:59 Intake Total 381 540 5747 Output Total 1000 450 550 Balance -46 504 520 Result Diagrams: 09/23/19 07:44 09/23/19 18:09 Additional Labs: Accuchecks 09/23/19 09/23/19 09/23/19 15:50 11:24 05:56 POC Glucose 120 H 91 95 09/22/19 20:37 POC Glucose 125 H EKG Reviewed by me: Yes (Tele paced) Hospitalist ROS - Review of Systems Respiratory: denies: cough, dry, shortness of breath, hemoptysis, SOB with excertion, pleuritic pain, sputum, wheezing, other Cardiovascular: denies: chest pain, palpitations, orthopnea, paroxysmal noc. dyspnea, edema, light headedness, other Gastrointestinal: denies: nausea, vomiting, abdominal pain, diarrhea, constipation, melena, hematochezia, other - Medication Medications: Active Medications Generic Name Dose Route Start Last Admin Trade Name Vikki PRN Reason Stop Dose Admin Acetaminophen 650 mg 09/19/19 17:40 09/22/19 19:13 Tylenol PO 650 mg Q4H PRN Administration Headache/Fever/Mild Pain (1-3) Allopurinol 100 mg 09/21/19 09:00 09/23/19 09:13 Zyloprim PO 100 mg DAILY [facility] Administration Amiodarone HCl 200 mg 09/22/19 21:00 09/23/19 09:11 Cordarone PO 200 mg BID B[facility]INO Administration Apixaban 2.5 mg 09/19/19 21:00 09/23/19 09:13 Eliquis PO 2.5 mg BID B[facility]INO Administration Atorvastatin Calcium 20 mg 09/19/19 21:00 09/22/19 20:32 Lipitor PO 20 mg HS BERNARDINO Administration Doxycycline Hyclate 100 mg 09/20/19 21:00 09/23/19 09:12 Vibramycin PO 100 mg BID [facility] Administration Dutasteride 0.5 mg 09/20/19 09:00 09/23/19 09:13 Avodart PO 0.5 mg DAILY [facility] Administration Finasteride 5 mg 09/20/19 09:00 09/23/19 09:13 Proscar PO 5 mg DAILY [facility] Administration Ceftriaxone Sodium 1 gm/ 100 mls @ 200 mls/hr 09/20/19 16:00 09/23/19 16:01 Sodium Chloride IVPB 100 mls 1600 B[facility]ARDINO Administration Dobutamine HCl/Dextrose 500 mg 250 mls @ 6.95 mls/hr 09/22/19 13:00 09/22/19 14:11 / Device IVPB 250 mls INF BERNARDINO Administration Protocol 2.5 MCG/KG/MIN Metoprolol Succinate 12.5 mg 09/21/19 09:00 09/23/19 09:13 Toprol Xl PO 12.5 mg BID B[facility]INO Administration Ondansetron HCl 4 mg 09/19/19 17:40 09/22/19 19:13 Zofran IVP 4 mg Q6H PRN Administration Nausea/Vomiting Pantoprazole Sodium 40 mg 09/20/19 09:00 09/23/19 09:13 Protonix PO 40 mg DAILY B[facility]INO Administration Patient Own Medication 0 each 09/20/19 14:45 09/23/19 09:18 Patient's Home Medication PO 1 each DAILY [facility]INO Administration Saccharomyces Boulardii 250 mg 09/20/19 09:00 09/23/19 09:11 Florastor PO 250 mg DAILY [facility] Administration Senna/Docusate Sodium 1 tab 09/23/19 09:00 09/23/19 09:11 Senokot S PO 1 tab BID B[facility]INO Administration Sertraline HCl 100 mg 09/20/19 09:00 09/23/19 09:11 Zoloft PO 100 mg DAILY [facility]INO Administration Tamsulosin HCl 0.4 mg 09/20/19 14:00 09/23/19 13:05 Flomax PO 0.4 mg 1400 BERNARDINO Administration - Exam General Appearance: NAD Heart: RRR, no gallops Respiratory: no wheezes, no ronchi Respiratory - other findings: dec AE over left lung Gastrointestinal: non-tender, normal bowel sounds Extremities: no cyanosis Neurological: no new deficit Hosp A/P - Plan DVT proph w/SCDs Gen weakness - multifactorial UZMA on CKD 3 Hypotension prob due to dehydration Chronic systolic HF 25-30% CA Pneumonia ?Pneumococcal Pleural effusion CLL ?UTI - cultures negative NSVT DM2 Thrombocytopenia PLAN: Cont Dobutamine drip with PO Amiodarone ACEI/ARB on hold due to UZMA Cont Toprol XL Cont Ceftriaxone/Doxycycline Off Milrinone drip Cont Ibrutinib Cont sliding scale and other meds as above AM labs Palliative care consult for possible hospice Case d/w Palliative care/Dr Woodward
[2019-09-23] MEDS: Polyethylene Glycol 3350 17 GM Packet PO SCH (20:37)
[2019-09-23] MEDS: Atorvastatin Calcium 20 MG TAB PO SCH (20:37)
[2019-09-24] MEDS ORDERED: Lidocaine 2% Viscous Solution 10 ML, Aluminum & Magnesium Hydroxide 30 ML SSW SCH (00:15)
[2019-09-24] MEDS: DOBUTamine 500 mg/250 ml 500 MG in Premix Bag 1 BAG IVPB SCH (00:41)
[2019-09-24 06:05] LABS: Albumin 3.6 g/dL (3.4-4.8); Anion Gap 13 mmol/L (10-20); BUN (Urea Nitrogen) 38 mg/dL (8.4-25.7); BUN/Creatinine Ratio 17.43; Calc. Creatinine Clearance 30 mL/min (70-130); Calcium 9.1 mg/dL (7.8-10.44); Carbon Dioxide 24 mmol/L (23-31); Chloride 109 mmol/L (98-107); Estimated GFR-MDRD 29; Glucose 74 mg/dL (83-110); Phosphorus 3.2 mg/dL (2.3-4.7); Potassium 4.2 mmol/L (3.5-5.1); Sodium 142 mmol/L (136-145)
[2019-09-24 06:28] LABS: Band 6 % (5-11); Eosinophils 3 % (0-10); Hemoglobin 11.1 g/dL (14.0-18.0); Lymphocytes 50 % (21-51); MDiff Complete? YES; Mean Corpuscular HGB CONC 32.8 g/dL (32.0-36.0); Mean Corpuscular Hemoglobin 33.2 pg (27.0-31.0); Mean Platelet Volume 8.8 fL (7.4-10.4); Monocytes 5 % (0-10); Neutrophil 36 % (42-75); Platelet Count 145 thou/uL (130-400); RBC Distribution Width 13.7 % (11.5-14.5); Red Blood Cell (RBC) Count 3.34 mill/uL (4.70-6.10); White Blood Cell (WBC) Count 8.3 thou/uL (4.8-10.8)
[2019-09-24] MEDS: Doxycycline 100 MG CAP PO SCH ×2 (08:36→20:33)
[2019-09-24] MEDS: Saccharomyces boulardii 250 MG CAP PO SCH (08:36)
[2019-09-24] MEDS: Torsemide 20 MG TAB PO SCH (08:37)
[2019-09-24] MEDS: Dutasteride 0.5 MG CAP PO SCH (08:37)
[2019-09-24] MEDS: Allopurinol 100 MG TAB PO SCH (08:38)
[2019-09-24] MEDS: Apixaban 2.5 MG TAB PO SCH ×2 (08:38→20:34)
[2019-09-24] MEDS: Senokot S 8.6-50 MG TAB PO SCH ×3 (08:38→20:33)
[2019-09-24] MEDS: Finasteride 5 MG TAB PO SCH (08:38)
[2019-09-24] MEDS: PATIENT'S HOME MEDICATION PO SCH (08:44)
[2019-09-24] MEDS: Amiodarone 200 MG TAB PO SCH ×2 (08:47→20:33)
--- NOTE | 2019-09-24 11:17 | PRG ---
DATE OF SERVICE: 09/24/2019 SUBJECTIVE: Mr. Rowland is about the same. He complains of some vague abdominal pain. OBJECTIVE: VITAL SIGNS: His temperature is 97.8, pulse 79, respirations 14, O2 saturation 99% on room air, blood pressure 118/63. HEENT: Unremarkable. NECK: No adenopathy or JVD. LUNGS: Diminished breath sounds in left base compared to right. CARDIAC: S1 and S2. Regular. ABDOMEN: Soft. EXTREMITIES: No edema. ASSESSMENT: Mr. 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 It does not reaccumulate to the point where we can intervene, and hopefully, it will not do that. He has been receiving therapy for his chronic lymphocytic leukemia, hopefully he can continue that. In the meantime, he is continuing therapy for his congestive heart failure. His long-term prognosis is quite poor. In the past, his son has practically made all the decisions for the patient and has been very difficult to deal with. We will follow. Job ID: [id number]
--- NOTE | 2019-09-24 14:22 | PRG ---
DATE OF SERVICE: 09/24/2019 SERVICE: Advanced Heart Failure Cardiology Consult Service. SUBJECTIVE: Mr. Rowland had a good day. He is breathing easily. He is able to eat food. However, he complains that he has a left lower quadrant abdominal pain. He also said he did not have a bowel movement for 2 days. This is his main complaint. He said that is one of the main complaints that brought him to the hospital. REVIEW OF SYSTEMS: GENERAL: There is no fever or chills. HEENT: There are no changes in vision, hearing, or swallowing. PULMONARY: He has basal short of breath. CARDIOVASCULAR: There is no palpitation or syncope. GASTROINTESTINAL: Please see HPI. GENITOURINARY: He is able to urinate. NEUROLOGIC: He has no focal deficit or weakness, but he has chronic Parkinson disease resting tremor. INTEGUMENT: He does not complain of any new skin breakdown. MUSCULOSKELETAL: He does have back pain. PHYSICAL EXAMINATION: TELEMETRY: Reviewed. He is paced at 80 beats per minute; however, there is frequently occurring PVCs because sometimes it comes in string of 4. VITAL SIGNS: His current vital signs are heart rate 78 and blood pressure 101/89. GENERAL: He is alert and conversational, resting comfortably in bed. HEENT: Show EOMI. Oropharynx is benign without erythema. No exudate. NECK: His JVP is a bit elevated at about 10 cm. PULMONARY: He has absent breath sounds on the left lung. The only sound we hear is upper airway sound there. His right lung has good air movement, but right basilar crackles. CARDIAC: Mostly regular rhythm. There is occasional irregularity with 2/6 holosystolic murmur with radiation to the left axilla. ABDOMEN: Soft. It is distended. However, he has left upper quadrant tenderness just below the rib corresponding to either the colon or the spleen. EXTREMITIES: The lower extremities are without edema since all of his LE edema is basically gone as of today. ASSESSMENT AND RECOMMENDATIONS: An 89-year-old gentleman has recovered from his hypovolemia and acute renal failure. Unfortunately, he has unresolving and mostly likely not resolving chronic lymphocytic leukemia. He also has chronic consolidation and pleural effusions of the left lung. At this point, he has sufficient cardiac output to improve the renal function. His creatinine is down to 2.18. This is the lowest he has in a long time. He has sufficient diuresis and he is near euvolemic. At this point, I will wait for investigation of the left upper quadrant. As soon as that is understood what the problem is, then we can titrate off the dobutamine. Furthermore, we will need to follow to see how well he is doing on torsemide 10 mg daily. Continue with the current cardiac regimen. This includes, 1. Amiodarone 200 mg twice a day, upon discharge that can be reduced down to once daily. 2. Apixaban 2.5 mg twice a day. 3. Dobutamine currently at 2.5 mcg/kg/minute. This can be titrated off whenever he goes home. 4. He will need to be continued on Toprol-XL 12.5 q.12 hours. This will need to be maintained as outpatient. 5. Torsemide 20 mg daily. This will need to be maintained as outpatient. 6. Please consider doing an oral contrast only CT scan of abdomen and pelvis to investigate the cause of his left abdominal pain. He could have an ileus or could have a cancer infiltration of his spleen. 7. As soon as the patient is set for discharge, then we will titrate off the dobutamine. It has been a pleasure taking care of Mr. Pierre Rowland. Job ID: [id number]
--- NOTE | 2019-09-24 14:29 | PDOC.EP ---
- Subjective Date: 09/24/19 Time: 14:28 Interval History: No chest discomfort, syncope or falls. Dyspnea unchanged - Objective Allergies/Adverse Reactions: Allergies Allergy/AdvReac Type Severity Reaction Status Date / Time wheat Allergy Verified 09/19/19 19:39 Current Medications Acetaminophen (Tylenol) 650 mg PO Q4H PRN PRN Reason: Headache/Fever/Mild Pain (1-3) Last Admin: 09/22/19 19:13 Dose: 650 mg Allopurinol (Zyloprim) 100 mg PO DAILY [facility] Last Admin: 09/24/19 08:38 Dose: 100 mg Amiodarone HCl (Cordarone) 200 mg PO BID [facility] Last Admin: 09/24/19 08:47 Dose: 200 mg Apixaban (Eliquis) 2.5 mg PO BID [facility] Last Admin: 09/24/19 08:38 Dose: 2.5 mg Atorvastatin Calcium (Lipitor) 20 mg PO HS [facility] Last Admin: 09/23/19 20:37 Dose: 20 mg Dextrose/Water (Dextrose 50%) 25 gm SLOW IVP PRN PRN PRN Reason: Hypoglycemia Doxycycline Hyclate (Vibramycin) 100 mg PO BID [facility] Last Admin: 09/24/19 08:36 Dose: 100 mg Dutasteride (Avodart) 0.5 mg PO DAILY [facility] Last Admin: 09/24/19 08:37 Dose: 0.5 mg Finasteride (Proscar) 5 mg PO DAILY [facility] Last Admin: 09/24/19 08:38 Dose: 5 mg Glucagon (Glucagon) 1 mg IM PRN PRN PRN Reason: Hypoglycemia Ceftriaxone Sodium 1 gm/ (Sodium Chloride) 100 mls @ 200 mls/hr IVPB 1600 [facility] Last Admin: 09/23/19 16:01 Dose: 100 mls Dextrose/Water (D5w) 1,000 mls @ 0 mls/hr IV .Q0M PRN PRN Reason: Hypoglycemia Dobutamine HCl/Dextrose 500 mg (/ Device) 250 mls @ 6.95 mls/hr IVPB INF [facility]; Protocol Last Admin: 09/24/19 00:41 Dose: 250 mls Insulin Human Lispro (Humalog) 0 units SC .MODERATE SLIDING SC PRN PRN Reason: Moderate Correctional Scale Insulin Human Lispro (Humalog) 0 units SC .BEDTIME SLIDING SC PRN PRN Reason: Bedtime Correctional Scale Metoprolol Succinate (Toprol Xl) 12.5 mg PO BID [facility] Last Admin: 09/24/19 08:37 Dose: 12.5 mg Ondansetron HCl (Zofran Odt) 4 mg PO Q6H PRN PRN Reason: Nausea/Vomiting Ondansetron HCl (Zofran) 4 mg IVP Q6H PRN PRN Reason: Nausea/Vomiting Last Admin: 09/22/19 19:13 Dose: 4 mg Pantoprazole Sodium (Protonix) 40 mg PO DAILY [facility] Last Admin: 09/24/19 08:38 Dose: 40 mg Patient Own Medication (Patient's Home Medication) 0 each PO DAILY [facility] Last Admin: 09/24/19 08:44 Dose: 1 each Polyethylene Glycol (Miralax) 17 gm PO HS [facility] Last Admin: 09/23/19 20:37 Dose: 17 gm Saccharomyces Boulardii (Florastor) 250 mg PO DAILY [facility] Last Admin: 09/24/19 08:36 Dose: 250 mg Senna/Docusate Sodium (Senokot S) 1 tab PO BID [facility] Last Admin: 09/24/19 08:41 Dose: Not Given Sertraline HCl (Zoloft) 100 mg PO DAILY [facility] Last Admin: 09/24/19 08:37 Dose: 100 mg Tamsulosin HCl (Flomax) 0.4 mg PO 1400 [facility] Last Admin: 09/23/19 13:05 Dose: 0.4 mg Torsemide (Demadex) 20 mg PO DAILY [facility] Last Admin: 09/24/19 08:37 Dose: 20 mg Vital Signs & Weight: Vital Signs Temp Pulse Resp BP Pulse Ox 09/24/19 12:10 97.7 F 78 14 101/89 98 09/24/19 08:40 97.8 F 79 14 118/63 99 09/24/19 03:25 98.6 F 80 18 113/60 96 Weight 201 lb 4 oz I/O: I/O 09/23/19 09/24/19 09/25/19 06:59 06:59 06:59 Intake Total 954 1590 Output Total 450 1225 Balance 504 365 - Quality Measures CV meds: Eliquis: Yes - Physical Exam HEENT: mucus membranes moist, normocephaly Extremities: + edema B - Labs Result Diagrams: 09/24/19 04:29 09/24/19 04:29 - Assessment/Plan Assessment/Plan: NSVT/Frequent PVC's - Continue amiodarone. Agree with 200 mg daily at discharge [employer]-D - Normal function Anticoagulation - No evidence of active bleeding
--- NOTE | 2019-09-24 15:02 | RAD ---
ABDOMEN 2 VIEWS: HISTORY: Abdominal pain. FINDINGS: There appears to be some scattered nodular fecal material within the colon. No evidence for large or small bowel obstruction. No free intraperitoneal air. IMPRESSION: Minimal scattered nodular fecal material in the colon. No bowel obstruction or free air or overt atiya culus or other acute process. POS: [facility]
[2019-09-24] MEDS: cefTRIAXone\\ROCEPHIN 1 GM in Sodium Chloride 0.9% 100 ML IVPB SCH (16:01)
[2019-09-24] MEDS: Tamsulosin HCl 0.4 MG CAP PO SCH (16:01)
[2019-09-24] MEDS: Acetaminophen 325 MG TAB PO PRN (20:33)
[2019-09-24] MEDS: Polyethylene Glycol 3350 17 GM Packet PO SCH (20:34)
[2019-09-24] MEDS: Atorvastatin Calcium 20 MG TAB PO SCH (20:34)
--- NOTE | 2019-09-24 23:01 | PDOC.HOSPP ---
- Subjective Encounter Date: 09/24/19 Encounter Time: 10:15 Subjective: Patient seen and examined for CHF/NSVT. LUQ pain - constant - moderate - worst with movement. No N/V. No other complaints. No overnight events - Objective Vital Signs & Weight: Vital Signs (12 hours) Temp Pulse Resp BP Pulse Ox 09/24/19 19:30 98.3 F 79 18 117/67 94 L 09/24/19 15:40 98.1 F 84 14 125/58 L 09/24/19 12:10 97.7 F 78 14 101/89 98 Weight Weight 201 lb 4 oz I&O: 09/23/19 09/24/19 09/25/19 06:59 06:59 06:59 Intake Total 954 1590 904 Output Total 450 1225 500 Balance 504 365 404 Result Diagrams: 09/24/19 04:29 09/24/19 04:29 Additional Labs: Accuchecks 09/24/19 09/24/19 09/24/19 20:31 17:20 11:14 POC Glucose 124 H 142 H 97 09/24/19 05:29 POC Glucose 81 Radiology Reviewed by me: Yes (KUB - no obstruction) EKG Reviewed by me: Yes (Tele paced) Hospitalist ROS - Review of Systems Respiratory: denies: cough, dry, shortness of breath, hemoptysis, SOB with excertion, pleuritic pain, sputum, wheezing, other Cardiovascular: denies: chest pain, palpitations, orthopnea, paroxysmal noc. dyspnea, edema, light headedness, other - Medication Medications: Active Medications Generic Name Dose Route Start Last Admin Trade Name Freq PRN Reason Stop Dose Admin Acetaminophen 650 mg 09/19/19 17:40 09/24/19 20:33 Tylenol PO 650 mg Q4H PRN Administration Headache/Fever/Mild Pain (1-3) Allopurinol 100 mg 09/21/19 09:00 09/24/19 08:38 Zyloprim PO 100 mg DAILY B[facility]INO Administration Amiodarone HCl 200 mg 09/22/19 21:00 09/24/19 20:33 Cordarone PO 200 mg BID B[facility]INO Administration Apixaban 2.5 mg 09/19/19 21:00 09/24/19 20:34 Eliquis PO 2.5 mg BID BERN[facility]INO Administration Atorvastatin Calcium 20 mg 09/19/19 21:00 09/24/19 20:34 Lipitor PO 20 mg HS B[facility]INO Administration Doxycycline Hyclate 100 mg 09/20/19 21:00 09/24/19 20:33 Vibramycin PO 100 mg BID [facility]INO Administration Dutasteride 0.5 mg 09/20/19 09:00 09/24/19 08:37 Avodart PO 0.5 mg DAILY [facility] Administration Finasteride 5 mg 09/20/19 09:00 09/24/19 08:38 Proscar PO 5 mg DAILY [facility] Administration Ceftriaxone Sodium 1 gm/ 100 mls @ 200 mls/hr 09/20/19 16:00 09/24/19 16:01 Sodium Chloride IVPB 100 mls 1600 [facility]INO Administration Dobutamine HCl/Dextrose 500 mg 250 mls @ 6.95 mls/hr 09/22/19 13:00 09/24/19 00:41 / Device IVPB 250 mls INF [facility] Administration Protocol 2.5 MCG/KG/MIN Metoprolol Succinate 12.5 mg 09/21/19 09:00 09/24/19 20:34 Toprol Xl PO 12.5 mg BID BERN[facility]INO Administration Ondansetron HCl 4 mg 09/19/19 17:40 09/22/19 19:13 Zofran IVP 4 mg Q6H PRN Administration Nausea/Vomiting Pantoprazole Sodium 40 mg 09/20/19 09:00 09/24/19 08:38 Protonix PO 40 mg DAILY [facility]INO Administration Patient Own Medication 0 each 09/20/19 14:45 09/24/19 08:44 Patient's Home Medication PO 1 each DAILY [facility] Administration Polyethylene Glycol 17 gm 09/23/19 21:00 09/24/19 20:34 Miralax PO 17 gm HS BERN[facility]INO Administration Saccharomyces Boulardii 250 mg 09/20/19 09:00 09/24/19 08:36 Florastor PO 250 mg DAILY [facility] Administration Senna/Docusate Sodium 1 tab 09/23/19 09:00 09/24/19 20:33 Senokot S PO 1 tab BID [facility]INO Administration Sertraline HCl 100 mg 09/20/19 09:00 09/24/19 08:37 Zoloft PO 100 mg DAILY [facility] Administration Tamsulosin HCl 0.4 mg 09/20/19 14:00 09/24/19 16:01 Flomax PO 0.4 mg 1400 B[facility]INO Administration Torsemide 20 mg 09/24/19 09:00 09/24/19 08:37 Demadex PO 20 mg DAILY BERN[facility]INO Administration - Exam General Appearance: NAD Heart: RRR, no gallops Respiratory: no wheezes, no rales Gastrointestinal: soft, non-distended, no guarding, no rigidity Gastrointestinal - other findings: LUQ tenderness Extremities: no cyanosis Neurological: no new deficit Psychiatric: normal affect, A&O x 3 Hosp A/P - Plan Gen weakness - multifactorial UZMA on CKD 3 Hypotension prob due to dehydration Chronic systolic HF 25-30% CA Pneumonia ?Pneumococcal Pleural effusion CLL ?UTI - cultures negative NSVT DM2 Chronic anticoag - no new episodes of bleeding Thrombocytopenia PLAN: On Dobutamine drip with PO Amiodarone KUB reviewed Case d/w Dr Woodward - Will get Abd CT with PO contrast ACEI/ARB on hold due to UZMA Cont Toprol XL Cont Atbx Off Milrinone drip Cont Ibrutinib Cont sliding scale Cont other meds as above AM labs DC planning
[2019-09-25 05:03] LABS: ALT (SGPT) 15 U/L (8-55); AST (SGOT) 16 U/L (5-34); Albumin 3.6 g/dL (3.4-4.8); Alkaline Phosphatase 52 U/L (40-110); Anion Gap 12 mmol/L (10-20); BUN (Urea Nitrogen) 37 mg/dL (8.4-25.7); Bilirubin, Total 0.5 mg/dL (0.2-1.2); Calc. Creatinine Clearance 31 mL/min (70-130); Calcium 9.1 mg/dL (7.8-10.44); Carbon Dioxide 25 mmol/L (23-31); Chloride 107 mmol/L (98-107); Estimated GFR-MDRD 29; Globulin 2.7 g/dL (2.4-3.5); Glucose 73 mg/dL (83-110); Magnesium 1.9 mg/dL (1.6-2.6); Potassium 4.2 mmol/L (3.5-5.1); Protein, Total 6.3 g/dL (5.8-8.1); Sodium 140 mmol/L (136-145)
[2019-09-25 05:20] LABS: Band 1 % (5-11); Eosinophils 1 % (0-10); Lymphocytes 63 % (21-51); MDiff Complete? YES; Mean Corpuscular HGB CONC 33.3 g/dL (32.0-36.0); Mean Corpuscular Hemoglobin 33.3 pg (27.0-31.0); Mean Corpuscular Volume 99.9 fL (78.0-98.0); Mean Platelet Volume 8.5 fL (7.4-10.4); Monocytes 4 % (0-10); Neutrophil 31 % (42-75); Platelet Count 145 thou/uL (130-400); RBC Distribution Width 13.7 % (11.5-14.5); White Blood Cell (WBC) Count 8.3 thou/uL (4.8-10.8)
--- NOTE | 2019-09-25 07:45 | PDOC.EP ---
- Subjective Date: 09/25/19 Time: 07:43 Interval History: Large bowel movement this morning. No chest discomfort, syncope or falls. - Objective Allergies/Adverse Reactions: Allergies Allergy/AdvReac Type Severity Reaction Status Date / Time No Known Drug Allergies Allergy Verified 09/24/19 17:10 Current Medications Acetaminophen (Tylenol) 650 mg PO Q4H PRN PRN Reason: Headache/Fever/Mild Pain (1-3) Last Admin: 09/24/19 20:33 Dose: 650 mg Allopurinol (Zyloprim) 100 mg PO DAILY [facility] Last Admin: 09/24/19 08:38 Dose: 100 mg Amiodarone HCl (Cordarone) 200 mg PO BID [facility] Last Admin: 09/24/19 20:33 Dose: 200 mg Apixaban (Eliquis) 2.5 mg PO BID [facility] Last Admin: 09/24/19 20:34 Dose: 2.5 mg Atorvastatin Calcium (Lipitor) 20 mg PO HS [facility] Last Admin: 09/24/19 20:34 Dose: 20 mg Dextrose/Water (Dextrose 50%) 25 gm SLOW IVP PRN PRN PRN Reason: Hypoglycemia Doxycycline Hyclate (Vibramycin) 100 mg PO BID [facility] Last Admin: 09/24/19 20:33 Dose: 100 mg Dutasteride (Avodart) 0.5 mg PO DAILY [facility] Last Admin: 09/24/19 08:37 Dose: 0.5 mg Finasteride (Proscar) 5 mg PO DAILY [facility] Last Admin: 09/24/19 08:38 Dose: 5 mg Glucagon (Glucagon) 1 mg IM PRN PRN PRN Reason: Hypoglycemia Ceftriaxone Sodium 1 gm/ (Sodium Chloride) 100 mls @ 200 mls/hr IVPB 1600 [facility] Last Admin: 09/24/19 16:01 Dose: 100 mls Dextrose/Water (D5w) 1,000 mls @ 0 mls/hr IV .Q0M PRN PRN Reason: Hypoglycemia Dobutamine HCl/Dextrose 500 mg (/ Device) 250 mls @ 6.95 mls/hr IVPB INF [facility]; Protocol Last Admin: 09/24/19 00:41 Dose: 250 mls Insulin Human Lispro (Humalog) 0 units SC .MODERATE SLIDING SC PRN PRN Reason: Moderate Correctional Scale Insulin Human Lispro (Humalog) 0 units SC .BEDTIME SLIDING SC PRN PRN Reason: Bedtime Correctional Scale Metoprolol Succinate (Toprol Xl) 12.5 mg PO BID [facility] Last Admin: 09/24/19 20:34 Dose: 12.5 mg Ondansetron HCl (Zofran Odt) 4 mg PO Q6H PRN PRN Reason: Nausea/Vomiting Ondansetron HCl (Zofran) 4 mg IVP Q6H PRN PRN Reason: Nausea/Vomiting Last Admin: 09/22/19 19:13 Dose: 4 mg Pantoprazole Sodium (Protonix) 40 mg PO DAILY [facility] Last Admin: 09/24/19 08:38 Dose: 40 mg Patient Own Medication (Patient's Home Medication) 0 each PO DAILY [facility] Last Admin: 09/24/19 08:44 Dose: 1 each Polyethylene Glycol (Miralax) 17 gm PO HS [facility] Last Admin: 09/24/19 20:34 Dose: 17 gm Saccharomyces Boulardii (Florastor) 250 mg PO DAILY [facility] Last Admin: 09/24/19 08:36 Dose: 250 mg Senna/Docusate Sodium (Senokot S) 1 tab PO BID [facility] Last Admin: 09/24/19 20:33 Dose: 1 tab Sertraline HCl (Zoloft) 100 mg PO DAILY [facility] Last Admin: 09/24/19 08:37 Dose: 100 mg Tamsulosin HCl (Flomax) 0.4 mg PO 1400 [facility] Last Admin: 09/24/19 16:01 Dose: 0.4 mg Torsemide (Demadex) 20 mg PO DAILY [facility] Last Admin: 09/24/19 08:37 Dose: 20 mg Vital Signs & Weight: Vital Signs Temp Pulse Resp BP Pulse Ox 09/25/19 07:29 97.7 F 74 12 114/55 L 95 09/25/19 03:56 98.1 F 80 21 H 105/55 L 96 Weight 202 lb 8 oz I/O: I/O 09/24/19 09/25/19 09/26/19 06:59 06:59 06:59 Intake Total 1590 1630 Output Total 1225 900 Balance 365 730 - Quality Measures CV meds: Eliquis: Yes - Physical Exam Cardiology: regular rate and rhythm, no murmur, regular rate, regular rhythm, PMI nondisplaced Lungs: clear to auscultation, normal breath sounds, normal exam, no wheeze, rales, rhonchi, no wheezes, no rales, no rhonchi Extremities: + edema B - Labs Result Diagrams: 09/25/19 04:28 09/25/19 04:28 - Assessment/Plan Assessment/Plan: NSVT/Frequent PVC's - Tolerating amiodarone without side effects Agree with 200 mg daily at discharge [employer]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
--- NOTE | 2019-09-25 08:29 | CT ---
EXAM: CT Abdomen Pelvis WO Con PROVIDED CLINICAL HISTORY: Abdominal pain COMPARISON: 05/01/2019 FINDINGS: Cardiomegaly and small pericardial effusion are demonstrated. 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 Large partially visualized left pleural effusion with associated atelectasis of entirety of the visualized left lower lobe. There is small right pleural fluid. 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 There is right hydronephrosis and right hydroureter to the level of a distal right ureteral calculus measuring about 6 mm. This is present about the level of the midportio n of the right sacral alar. Multiple bilateral renal hypodensities are demonstrated, incompletely characterized in the absence of IV contrast material. The solid abdominal organs are suboptimally evaluated in the absence of IV contrast material but demo nstrate an otherwise unremarkable unenhanced CT appearance. There is no bowel dilatation, free fluid or free air apparent. Nonspecific bilateral perinephric fat stranding is similar to prior. Extensive vascular calcifications are seen. Stable nonspecific increased density within the presacral fat. The osseous structures demonstrate no concerning lytic or blastic lesions. IMPRESSION: 1. 6 mm obstructing right distal ureteral calculus. 2. Bilateral nephrolithiasis including staghorn left renal calculi appearing similar to prior. 3. Partially visualized large left and small right pleural fluid. 4. Other findings as above.
[2019-09-25] MEDS: Torsemide 20 MG TAB PO SCH (09:25)
[2019-09-25] MEDS: Dutasteride 0.5 MG CAP PO SCH (09:26)
[2019-09-25] MEDS: Amiodarone 200 MG TAB PO SCH (09:26)
[2019-09-25] MEDS: Saccharomyces boulardii 250 MG CAP PO SCH (09:26)
[2019-09-25] MEDS: Finasteride 5 MG TAB PO SCH (09:26)
[2019-09-25] MEDS: Apixaban 2.5 MG TAB PO SCH (09:26)
[2019-09-25] MEDS: Doxycycline 100 MG CAP PO SCH (09:26)
[2019-09-25] MEDS: Allopurinol 100 MG TAB PO SCH (09:26)
[2019-09-25] MEDS: PATIENT'S HOME MEDICATION PO SCH (09:32)
[2019-09-25] MEDS: Senokot S 8.6-50 MG TAB PO SCH (10:00)
--- NOTE | 2019-09-25 11:05 | PRG ---
DATE OF SERVICE: 09/25/2019 SUBJECTIVE: He is breathing comfortably. Continues to complain of abdominal pain. OBJECTIVE: VITAL SIGNS: Temperature 97.7, pulse 74, respirations 12, O2 saturation 95%, and blood pressure 114/55. HEENT: Unremarkable. NECK: No JVD. LUNGS: Diminished breath sounds at left base. Right side clear. CARDIAC: S1 and S2 regular. ABDOMEN: Mid epigastric point tenderness. EXTREMITIES: No edema. LABORATORY DATA: White blood cell count 8.3, hematocrit 32.9, and platelet count 145. Sodium 140, potassium 4.2, BUN 37, creatinine 2.2, glucose 73. ASSESSMENT: Mr. Rowland has chronic lymphocytic leukemia with a left pleural effusion from that. Currently, he is not requiring supplemental oxygen and I do not see any point intervening with the effusion at this time. RECOMMENDATION: From a pulmonary standpoint, he is stable to go home or to a snf. Other problems per specialists involved. Job ID: [id number]
[2019-09-25] MEDS: DOBUTamine 500 mg/250 ml 500 MG in Premix Bag 1 BAG IVPB SCH (12:24)
[2019-09-25 12:28] VITALS: BP 99/67; TEMP 97.5
--- NOTE | 2019-09-25 14:17 | EKG ---
Test Reason : Blood Pressure : / mmHG Vent. Rate : 070 BPM Atrial Rate : 070 BPM P-R Int : 000 ms QRS Dur : 146 ms QT Int : 456 ms P-R-T Axes : 000 121 -70 degrees QTc Int : 492 ms Ventricular-paced rhythm with frequent AV dual-paced complexes in a pattern of bigeminy Abnormal ECG Reconfirmed by ROSALBA CELIS ([id number]), legal editor PATRICIA EVANS ([id number] on 09/25/2019 2:17:19 PM Referred By: Confirmed By:ROSALBA Nova
--- NOTE | 2019-09-25 14:22 | CON ---
DATE OF CONSULTATION: 09/25/2019 REASON FOR CONSULTATION: Right ureteral calculi. HISTORY OF PRESENT ILLNESS: Mr. Rowland is an 89-year-old male, with complicated past medical history, urologic history. Patient's clinical history, records reviewed. Recently underwent thoracocentesis, 1900 cc evacuated, patient admitted on this admission due to hypotension and acute renal insufficiency exacerbated by diarrhea/diuretics. he has been cleared by cardiology/ pulmonolgy to be discharged. The patient with history of prostate cancer, horseshoe kidney, multiple bilateral renal calculi, extensive stone burden. patient was previously followed by Dr. Mcknight, I was consulted on his inpatient care back in January of 2019 as he presented with high-grade right ureteral obstruction with caliceal rupture and subcapsular hematoma. He had previously undergone surgical intervention by Dr. Mcknight, however ureteral, renal calculi were not treated. He was in the ICU for an extended period of time due to significant cardiopulmonary comorbidities and sepsis. He had multiple ureteral calculi that were stacked on top of each other /some embedded, with multiple tiny bladder stones presumed to be passed ureteral calculi. As he has no significant PVR. He underwent staged ureteroscopy, ureteral stone treatment. 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 We did clear his right ureteral stone burden and he did undergo stent pull 04/12. Family has been informed on multiple occasions regarding hospice palliative care given his advanced age and significant cardiac comorbidities. Palliative Care was again consulted on this visit inpatient, family declined. He lives in private residence with his son and , who is the power of research attorney. I had last seen him back in February 2019, advised regarding followup with staging CT, which they declined fu. Subsequently seen in house, stent pull performed as above March 2019 inpatient consultation obtained today as CT was ordered and recommended by Cardiology due to patient complaining of vague left upper quadrant abdominal pain. CT results, which I have reviewed myself, demonstrates bilateral stone burden as previous, there is mild right hydronephrosis due to a mid ureteral calculi measuring 6 mm in craniocaudal dimension measures about 2 to 3 mm in anterior-posterior dimension. patient denies flank pain, dysuria or gross hematuria. Most of his discomfort is left upper quadrant. He appears to be resting comfortably on my visit. PAST MEDICAL HISTORY: 1. Asthma. 2. Cardiomyopathy/ [employer] followed by Dr. Shin and Dr. Woodward, 3 dyslipidemia, 4 type 2diabetes, 5hypertension, 6 morbid obesity. 7 . History of chronic systolic heart failure, 8 Parkinson disease 9 prostate cancer, on watchful waiting. Previous Casodex was discontinued by Medical Oncology a few months ago. 10. Chronic renal insufficiency, followed by Dr. Vera. 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 Medications: Allopurinol 100 mg 1 p.o. daily, amiodarone 200 mg 1 p.o. twice daily, Lipitor, Vibramycin, Avodart, dobutamine, insulin, Zofran, Flomax, torsemide, Zoloft, Eliquis PAST SURGICAL HISTORY: 1. Laparoscopic cholecystectomy. 2. Tonsillectomy. 3. Pacemaker defibrillator. 4. Cystoscopy, evacuation of bladder stone, circumcision by Dr. Mcknight in April 2018; January 31, 2019, cysto right retrograde, 6 x 22 stent. 5. March 24, 2019, cysto right retrograde, 6 x 22 stent exchange, flexible ureteroscopy, laser lithotripsy of multiple ureteral calculi. 6. April 23, 2019, distal right stent pull under [facility]. 7 August 27, 2019, Dr. Madrigal, thoracocentesis. ALLERGIES: NO KNOWN DRUG ALLERGIES. Whey CAUSES DIARRHEA. FAMILY HISTORY: Positive for [place], colorectal cancer, brain cancer. SOCIAL HISTORY: Former smoker, quit in 1977. PSYCHIATRIC: Appears to be appropriate and intact, is alert and oriented. PHYSICAL EXAMINATION: VITAL SIGNS: Stable, 97.5, 85, 18, 95, blood pressure 99/67. I's and O's; 1630 in, 900 out. GENERAL: The patient appears to be in no acute distress. Alert and oriented x3. HEENT: Grossly unremarkable. Dry oropharynx. HEART: Regular rate. LUNGS: Intermittent wheezing. ABDOMEN: Morbidly obese, protuberant, subjective area of discomfort in left upper quadrant with no rigidity and no rebound. There is mild subcutaneous prominence of the left flank, nonspecific, with no ecchymosis. Morbidly obese. ABDOMEN: Soft. EXTREMITIES: No cyanosis. : Circumcised. Meatus is unremarkable. Testes descended. EXTREMITIES: Venous stasis changes of the lower extremity with mild pedal edema. NEUROLOGIC: No gross focal deficits per se; however, he has limited mobility. Sensation appears to be intact. PSYCHIATRIC: Appears to be appropriate. PERTINENT LABORATORY DATA: On admission on September 18, white count of 10, currently 8.3. His H and H have been stable on this admission with hemoglobin of 11 and platelet of 145. Chemistry profile; creatinine today is 2.16, September 24, admitting creatinine is 3.01. His baseline creatinine is 1.4 to 2.3. Hemoglobin A1c is 5.0 in April 2019. PSA in April 2018 is 0.05. Uric acid in November 2018 is 6.3, within normal limits. UA on admission is clear yellow, 75 leukocytes, greater than 50 rbc's, 20-50 wbcs, no epithelials, 1+ bacteria. Urine culture negative. Blood culture with one specimen with corneybact contaminant. PERTINENT IMAGING DATA: CT of the abdomen and pelvis, September 25, 2019 without contrast: Horseshoe kidney with multiple bilateral calculi as previous, staghorn component on the left, a right 6-mm mid ureteral calculi with mild hydroureter , per my review this measures 6 mm in craniocaudal dimension, 2 mm in transverse dimension. Partially visualized large left and small right pleural fluid. CT with contrast March 2019, moderate pleural effusion, horseshoe kidney with multiple calcifications, exophytic cyst on the right with no dilation of the ureter or ureteral calculi. IMPRESSION: Mr. Rowland is an 89-year-old male with past medical history, 1. Severe congestive heart failure, atrial fibrillation. 2. Horseshoe kidney; benign prostatic hyperplasia, nonobstructing; history of prostate cancer, on watchful waiting; previously on Casodex, discontinued by Medical Oncology. 3. History of right multiple ureteral calculi, resulting in high-grade obstruction, treated. 4. Current admission due to hypotension, renal insufficiency which resolved and improved to his baseline with observation, he was diagnosed with hypovolemia, resuscitated and medically managed with improvement. 5. Left upper quadrant abdominal pain, nonspecific. 6. Recent CT scan demonstrating right 6 mm x 2 mm ureteral calculi, asymptomatic. 7. Horseshoe kidney with multiple bilateral renal calculi, large stone burden. 8. Chronic renal insufficiency. RECOMMENDATION: I did speak with Cardiology, Dr. Woodward, as well as power of research attorney, his , Matilde Rowland, regarding his clinical history and current presentation. As previous, patient is high risk for surgical intervention due to his cardiopulmonary comorbidities. In correlation with previous recommendations, which family agrees due to his high-risk comorbidities, previous surgery only addressed his ureteral calculi to minimize intraoperative time due to his cardiopulmonary comorbidities. The plan is to treat his ureteral calculi if it is clinically significant to minimize operative time as previous. Recent CT demonstrates 6 x 2 mm ureteral calculi x1, patient asymptomatic with urine culture negative. Despite cardiology or pulmonary clearance, he remains high risk for perioperative morbidity/mortality. As his right stone has good probability of passing spontaneously and only one focus seen, recommend trial medical expulsion therapy. Certainly if he presents with UTI component with fever, multiple ureteral calculi obstructing , will warrant surgical intervention in life-saving scenario. family agrees with the current plan of management. The patient and agrees. They had previously canceled subsequent followup appointment with me, I encouraged the that he should be seen in my office with restaging CT in few weeks. Please discharge the patient with Flomax; Eliquis approved to be discontinued by Cardiology. Extensive time spent with the patient, coordinating care, reaching out to family, and review of previous records and imaging. From my perspective, he can be discharged with close followup with me with restaging imaging. Job ID: [id number] [email or web address]
[2019-09-25] MEDS: Tamsulosin HCl 0.4 MG CAP PO SCH (14:29)
--- NOTE | 2019-09-26 06:45 | PRG ---
DATE OF SERVICE: 09/25/2019 SUBJECTIVE: Mr. Rowland had a good day. He was breathing easier. He is able to eat. However, he still complains of left lower quadrant abdominal pain. That is the one of the main reasons that he came in, was he wanted this to be addressed. His telemetry was reviewed. He is mostly A paced and V paced. He has frequent 3-beat NSVT, but it does not seem to impact his hemodynamics. OBJECTIVE: VITAL SIGNS: Heart rate 80 and blood pressure 114/55. GENERAL: He is alert and conversational, resting comfortably in bed today. He can talk without being short of breath. HEENT: EOMI. Oropharynx benign with a moist mucosa. NECK: JVP is about 10 cm. LUNGS: There are absent breath sounds at majority of the left lung. At the top of left lung, there is wheeze, there is a little bit of air movement there, and no place else in the left lung. His right lung has good air movement; however, there are still right basilar crackles. CARDIAC: Regular rate and rhythm with occasional irregularity with 2/6 holosystolic murmur at the apex with radiation to the left axilla. ABDOMEN: Soft and distended. There is some tenderness in the left upper quadrant. EXTREMITIES: His lower extremities are without edema. Positive dorsalis pedis pulses bilaterally. MEDICATIONS: His current cardiac medications include: 1. Dobutamine 2.5 mcg/kg/minute. 2. Toprol-XL 12.5 mg every 12 hours. 3. Amiodarone 200 mg twice per day. 4. Torsemide 20 mg daily. LABORATORY DATA: His most recent laboratory value shows potassium 4.2, BUN 37, creatinine is 2.16. This is the best renal function on this visit. CT scan of abdomen was done. It reports a 6-mm obstructing right distal ureteral calculus. It also reported bilateral nephrolithiasis. It also reported there is a chronic large left pleural effusion. ASSESSMENT: An 89-year-old gentleman who was admitted for hypotension, acute renal failure, and possibly an infection, has recovered from those primary causes. His renal function has returned to its normal, possibly with aid of dobutamine. The current regimen seemed to have kept him euvolemic a little better. As such, he could be discharged to home with oral medications. However, in time without dobutamine, he will reaccumulate fluid and kidneys will get worse. There was consultation on surgical approach to remove the obstructing ureteral calculi. He can be supported through the surgery process. We can increase his dobutamine to augment the cardiac output and he should survive. We have taken patients with worse heart condition than he does through abdominal surgery. I understand he has many other comorbidities and the least trauma the better. In terms of anticoagulation, he is on Eliquis likely due to he has some history of atrial fibrillation. If this needs to be stopped, he can, without incurring great risk. Please see the following recommendations for potential discharge. RECOMMENDATIONS: 1. Continue amiodarone at 200 mg daily. 2. Continue Toprol-XL at 12.5 mg q.12 h. 3. Continue torsemide at 20 mg daily. 4. You may turn off dobutamine. 5. Please call ahead so I can come by and increase the basal rate to 85 to provide a little more cardiac output before going home. 6. Please do call [facility] to arrange for a visit within 1 week. He is a very difficult patient. He may need Bi-V pacer, so that visit will have to be a clinic visit. It has been a pleasure taking care of Mr. Rowland. If you have any question, please give me a call. Job ID: [id number]
--- NOTE | 2019-09-26 08:01 | DIS ---
DATE OF ADMISSION: 09/19/2019 DATE OF DISCHARGE: 09/25/2019 DISCHARGE DISPOSITION: Home with home health care. FOLLOWUP: 1. Follow up with primary care physician, Dr. Lagos, in 1 week. 2. Follow up with Cardiology and Urology as scheduled. ALLERGIES: NO KNOWN DRUG ALLERGIES. DISCHARGE MEDICATIONS: 1. Lasix was changed to torsemide 20 mg daily. 2. Flomax was added. 3. Potassium chloride was changed to 20 mEq twice a week. 4. Carvedilol was changed to Toprol-XL 12.5 mg b.i.d. 5. Amiodarone 200 mg was added. All other home medications were left unchanged. The patient was seen and examined on the day of discharge. Denies any new complaints. No chest pain, shortness of breath, or palpitations reported. Left upper quadrant pain is improving. Vital signs on the day of discharge show temperature 97.7 with pulse rate of 74, respiration of 12, blood pressure of 114/55 with O2 saturation 95% on room air. BRIEF HOSPITAL COURSE: The patient is an 89-year-old male with CLL with recent hospitalization for respiratory failure due to pleural effusion, presented to the emergency room with generalized weakness. His workup was consistent with hypotension probably due to dehydration along with diuretics. He was monitored on telemetry unit. He was evaluated by multiple consultants including Pulmonary, Dr. Taveras; Cardiology, Dr. Woodward; Electrophysiology, Dr. Mathew; Urology, Dr. Tejada; as well as palliative care team. He was started on milrinone drip that was later transitioned to dobutamine due to lack of significant response. He also had nonsustained ventricular tachycardia, for which amiodarone was added. Lower rate limit of OIL EXPLORATION ENGINEER-D was increased to 80 beats per minute. Anticoagulation with Eliquis was continued. COVID-19 was ruled out. His chest CT showed stable to moderate left effusion and left basilar atelectasis and consolidation similar to prior examination. Due to concern for pneumonia, he was placed on antibiotics, which will be discontinued on the day of discharge. Over the last 48 hours, he has been complaining of left upper quadrant pain. For this reason, he underwent a CT scan of the abdomen and pelvis without contrast that showed 6 mm obstructing right distal ureteral calculus with bilateral nephrolithiasis including staghorn in the left renal calculi. Flomax was added per urology recommendation. He appears stable for discharge. He is at very high risk of readmission due to multiple comorbidities. Dobutamine drip will be discontinued. Hospice was discussed with the family. He was advised to follow up with Oncology as well. FINAL DIAGNOSES: 1. Generalized weakness, multifactorial. 2. Acute kidney injury on chronic kidney disease, stage 3. 3. Hypotension, probably secondary to dehydration. 4. Chronic systolic heart failure, ejection fraction 25% to 30%. ANN inhibitors, ARB, and Aldactone will be held due to renal dysfunction. 5. Suspected pneumonia on admission, questionable pneumococcal versus aspiration. Antibiotics will be discontinued. 6. Bilateral pleural effusion due to chronic lymphocytic leukemia. 7. Nonsustained ventricular tachycardia. 8. Diabetes mellitus type 2. 9. Chronic anticoagulation. 10. Thrombocytopenia with platelets of 124 on 22 September. His platelet on the day of discharge is 145. TIME SPENT: Time coordinating the discharge of this patient was 33 minutes. Job ID: [id number]
--- NOTE | 2019-09-26 22:52 | PQF ---
[employer] Adjunct Writing Instructor Crystal Reports Winform Viewer ANGI YING MALIK MD [id number] [facility] [id number] CLINICAL DOCUMENTATION CLARIFICATION FORM: POST DISCHARGE Addendum to original discharge summary date: ____ Late entry note date: __ DATE: 09/26/19 ATTN: Jose F Owen Please exercise your independent, professional judgment in responding to the clarification form. Clinical indicators are provided on the bottom of this form for your review Can you please further clarify the diagnosis of the patient? Please check appropriate box(s): [ x ] Aspiration Pneumonia - suspected [ ] Pneumococcal Pneumonia [ ] Pneumonia secondary to (specify organism / underlying disease) [ ] Simple Pneumonia (community acquired - nosocomial) [ ] No pneumonia [ ] Pneumonia of unknown etiology [ ] Other diagnosis please specify [ ] Unable to determine In addition, please specify: Present on Admission (POA): [ ] Yes [ ] No [ ] Unable to determine For continuity of documentation, please document condition throughout progress notes and discharge summary. Thank You. CLINICAL INDICATORS DS pg.2 suspected pneumonia on admission, questionable pneumococcal versus aspiration DS pg.2- Due to concern for pneumonia, he was placed on antibiotics Chest X ray 09/18- stable exam CT Chest 09/19- cough and shortness of breath CT Chest 09/19-atelectasis and consolidation, similar to prior exam. This could represent left basilar pneumonia RISK FACTORS Chronic systolic CHF- DS pg.2 DM2- DS pg.2 CLL- H and P pg.1 Advance age- Consult Dr. Madrigal pg.2 TREATMENTS: Chest X ray 09/18 CT Chest 09/19 IV Antibiotics- MAR IV Fluid- MAR Blood culture- MAR Nasal Swab- Microbiology Pulmonary Consult Dr. Madrigal 09/21 (This form is maintained as a part of the permanent medical record) 2014 [employer] All Rights Reserved [email or web address]
== END 2019-09-25 16:19 | disposition home health service (06) | DRG 682 ==
LOC: ERS 12:37 → ONC 16:13 → 2NO 19:59
PROVIDERS: ADMIT Internal Medicine; ATTEND Internal Medicine
PROC: 4B02XTZ Measurement of Cardiac Defibrillator, External Approach (ICD-10-PCS; principal; 2019-09-23)
DX: N17.9 Acute kidney failure, unspecified (principal); J69.0 Pneumonitis due to inhalation of food and vomit; C91.10 Chronic lymphocytic leukemia of B-cell type not having achieved remission; I50.22 Chronic systolic (congestive) heart failure; I47.2 Ventricular tachycardia; I13.0 Hypertensive heart and chronic kidney disease with heart failure and stage 1 through stage 4 chronic kidney disease, or unspecified chronic kidney disease; J91.0 Malignant pleural effusion; F32.9 Major depressive disorder, single episode, unspecified; E11.22 Type 2 diabetes mellitus with diabetic chronic kidney disease; E86.1 Hypovolemia; I25.10 Atherosclerotic heart disease of native coronary artery without angina pectoris; G20 Parkinson's disease; N18.3 Chronic kidney disease, stage 3 (moderate); J45.909 Unspecified asthma, uncomplicated; E78.5 Hyperlipidemia, unspecified; E66.01 Morbid (severe) obesity due to excess calories; N13.6 Pyonephrosis; E86.0 Dehydration; I25.5 Ischemic cardiomyopathy; D69.6 Thrombocytopenia, unspecified; Z87.891 Personal history of nicotine dependence; Z95.810 Presence of automatic (implantable) cardiac defibrillator; Z79.899 Other long term (current) drug therapy; Z79.82 Long term (current) use of aspirin; Q63.1 Lobulated, fused and horseshoe kidney; Z79.01 Long term (current) use of anticoagulants
CPT/HCPCS: 36415; 36416; 71045; 71250; 74019; 74176; 80048; 80053; 80069; 81003; 81015; 82553; 83605; 83735; 83880; 84484; 85025; 87040; 87086; 87633; 93005; 93010; 94760; 96361; 96365; J0696; J1250; J1940; J2260; J2405; J3490; P9047; U0001

== ENCOUNTER 2019-10-10 13:56 | Outpatient (CLI) | payer OTHER ==
--- NOTE | 2019-10-10 15:04 | RAD ---
2 VIEWS CHEST: Date: 10/10/2019 PROVIDED CLINICAL HISTORY: Lymphoma. FINDINGS: Comparison with 09/19/2019. Increased left hemithoracic pleural parenchymal opacity. Stable right lung nodule. Cardiac silhouette appears enlarged as visualized. Vascular calcification and left subclavian cardiac pacing device are redemonstrated. No evidence for pneumothorax. IMPRESSION: Increased opacification of left hemithorax shown to represent predominantly pleural fluid on the conc urrently performed CT abdomen and pelvis. POS: ANGEL
--- NOTE | 2019-10-10 16:06 | CT ---
CT ABDOMEN AND PELVIS WITHOUT IV CONTRAST: 10/10/19 PROVIDED CLINICAL HISTORY: Renal stone. FINDINGS: Comparison is made with the study dated 09/25/19. Right lung base hamartoma and bilateral pleural fluid, appearing larger and potentially loculated on the left. Horseshoe kidney with multiple bilateral renal calculi including staghorn left renal calculi redemon strated. There is persistent hydronephrosis and hydroureter on the right to the level of a stable rig ht ureteral calculus that does not appear changed in position. The solid abdominal organs are suboptimally evaluated in the absence of IV contrast material but demo nstrate an otherwise unremarkable unenhanced CT appearance. Haziness of the central small bowel mesen sandra and bilateral perinephric fat stranding and renal cystic structures are again noted. There is no bowel dilatation, localized inflammatory fat stranding, free fluid or free air apparent. Nonspecific stranding of the presacral fat redemonstrated. Vascular calcifications are noted. The osseous structures demonstrate no concerning lytic or blastic lesions. IMPRESSION: 1. No significant interval change with respect to urinary tract findings with stable right urete ral calculus producing hydronephrosis. 2. Redemonstration of bilateral pleural fluid, greater on the left and appearing increased with respect to the prior examination and potentially loculated. POS: ANGEL
== END 2019-10-10 13:57 | disposition home or self-care (01) ==
LOC: BICCT 13:56 → CT 13:57
PROVIDERS: ATTEND Urology
DX: J90 Pleural effusion, not elsewhere classified (principal); C83.01 Small cell B-cell lymphoma, lymph nodes of head, face, and neck; Q63.1 Lobulated, fused and horseshoe kidney; N13.2 Hydronephrosis with renal and ureteral calculous obstruction; R91.8 Other nonspecific abnormal finding of lung field; I50.9 Heart failure, unspecified
CPT/HCPCS: 36415; 71046; 74176; 80053; 83735; 83880

== ENCOUNTER 2019-10-13 22:07 | Inpatient (IN) | payer MEDICARE, OTHER ==
--- NOTE | 2019-10-13 23:25 | RAD ---
SINGLE VIEW OF THE CHEST: Comparison: 09-19-2019 History: Low oxygen saturation and dyspnea. FINDINGS: Single view of the chest shows an enlarged cardiomediastinal silhouette. The pacemaker is unchanged i n position. There is a large left pleural effusion. There may be an infiltrate in the right lower lob e. There is a stable 2.7 cm area of nodularity projecting over the mid right lung. IMPRESSION: 1. Cardiomegaly. 2. Large left pleural effusion. 3. Stable right pulmonary nodule. 4. Possible right lower lobe infiltrate. POS: EAA
[2019-10-13 23:43] LABS: #Basophils 0.1 thou/uL (0.0-0.2); #Eosinphils 0.1 thou/uL (0.0-0.7); #Lymphocytes 4.2 thou/uL (1.20-3.40); #Monocytes 0.5 thou/uL (0.11-0.59); %Basophils 1.2 % (0.0-1.0); %Eosinophils 0.8 % (0.0-10.0); %Lymphocytes 38.2 % (21.0-51.0); %Monocytes 4.4 % (0.0-10.0); %Neutrophils 55.4 % (42.0-75.0); Hemoglobin 10.9 g/dL (14.0-18.0); Mean Corpuscular HGB CONC 31.8 g/dL (32.0-36.0); Mean Corpuscular Hemoglobin 33.5 pg (27.0-31.0); Mean Platelet Volume 7.5 fL (7.4-10.4); Platelet Count 183 thou/uL (130-400); RBC Distribution Width 14.6 % (11.5-14.5); Red Blood Cell (RBC) Count 3.26 mill/uL (4.70-6.10); White Blood Cell (WBC) Count 10.9 thou/uL (4.8-10.8)
[2019-10-14 00:04] LABS: ALT (SGPT) 15 U/L (8-55); AST (SGOT) 17 U/L (5-34); Albumin 3.5 g/dL (3.4-4.8); Alkaline Phosphatase 56 U/L (40-110); Anion Gap 13 mmol/L (10-20); BUN (Urea Nitrogen) 28 mg/dL (8.4-25.7); Bilirubin, Total 0.4 mg/dL (0.2-1.2); Calc. Creatinine Clearance 0 mL/min (70-130); Calcium 8.9 mg/dL (7.8-10.44); Carbon Dioxide 27 mmol/L (23-31); Chloride 105 mmol/L (98-107); Estimated GFR-MDRD 26; Globulin 3.2 g/dL (2.4-3.5); Glucose 154 mg/dL (83-110); Protein, Total 6.7 g/dL (5.8-8.1); Sodium 141 mmol/L (136-145)
[2019-10-14 00:17] LABS: CKMB 1.2 ng/mL (0-6.6)
[2019-10-14] MEDS ORDERED: Furosemide 40 MG/4 ML VIAL SLOW IVP SCH (01:00)
[2019-10-14] MEDS ORDERED: Cefepime 2 GM VIAL ONE (01:08)
[2019-10-14] MEDS ORDERED: Vancomycin 1 GM/200 ML BAG ONE (02:24)
--- NOTE | 2019-10-14 02:25 | HP ---
CHIEF COMPLAINT: Shortness of breath. HISTORY OF PRESENT ILLNESS: Mr. Rowland is an 89-year-old male with past medical history of chronic lymphocytic leukemia, congestive heart failure, cardiomyopathy with EF of 25%, cardiac pacemaker, AICD, pleural effusion, among others, presents to the emergency room with worsening shortness of breath. Workup in the emergency room, the patient was found to have an enlarging left pleural effusion, troponin 0.05, BNP was elevated , BUN is 28, and creatinine is 2.3. WBC count is 10.9, hemoglobin is 9.9, and platelets 183. The patient is being admitted to hospital for further management. PAST MEDICAL HISTORY: As mentioned above in History of Present Illness. PAST SURGICAL HISTORY: 1. Cholecystectomy. 2. Heart surgery as an . 3. Tonsillectomy. 4. Pacemaker placement. 5. Circumcision. 6. Kidney stone removal. 7. Lithotripsy. SOCIAL HISTORY: The patient denies alcohol drinking. He is a former tobacco smoker. ALLERGIES: NO KNOWN ALLERGIES. HOME MEDICATIONS: Please see home medication reconciliation form for updated medications. REVIEW OF SYSTEMS: Review of 14 systems negative except what is mentioned in History of Present Illness. PHYSICAL EXAMINATION: GENERAL: The patient is awake, alert, in moderate respiratory distress. VITAL SIGNS: Temperature is 98.8, oxygen saturation is 97% on 2 L/minute nasal cannula, blood pressure 130/70, and pulse of 75. HEAD AND NECK: Normocephalic, atraumatic. NECK: Supple. CHEST: Decreased air entry. No dullness to percussion in left chest. HEART: Distant heart sounds. ABDOMEN: Soft, nontender. Bowel sounds present. NEUROLOGIC: Awake, alert, oriented. PSYCH: Unable to assess. EXTREMITIES: . GENITOURINARY: No suprapubic tenderness. No flank tenderness. LABORATORY DATA: As mentioned above in History of Present Illness. DIAGNOSTIC DATA: Chest x-ray as mentioned above in History of Present Illness. ASSESSMENT: 1. Acute dyspnea. 2. Large pleural effusion, left. 3. Congestive heart failure with ejection fraction of 30%. 4. Cardiomyopathy. 5. Cardiac pacemaker. 6. Chronic obstructive pulmonary disease. 7. Chronic kidney disease. 8. Indeterminate troponin. PLAN: 1. Admit. 2. Tele monitoring. 3. IV diuresis. 4. Oxygen to keep saturation more than 92%. 5. Reassess patient in a.m., consider pleural taps/thoracentesis. 6. Reconcile home medications. 7. DVT prophylaxis as appropriate. EXPECTED LENGTH OF STAY: 2 midnights or more. Job ID: [id number]
[2019-10-14 02:56] VITALS: BMI 30.9
[2019-10-14] MEDS: Furosemide 40 MG/4 ML VIAL SLOW IVP SCH ×2 (03:58→15:48)
[2019-10-14 05:47] LABS: #Basophils 0.1 thou/uL (0.0-0.2); #Eosinphils 0.1 thou/uL (0.0-0.7); #Monocytes 0.5 thou/uL (0.11-0.59); #Neutrophils 5.1 thou/uL (1.40-6.50); %Basophils 0.7 % (0.0-1.0); %Eosinophils 1.1 % (0.0-10.0); %Lymphocytes 40.9 % (21.0-51.0); %Monocytes 5.1 % (0.0-10.0); %Neutrophils 52.3 % (42.0-75.0); Hemoglobin 10.5 g/dL (14.0-18.0); Mean Corpuscular HGB CONC 31.7 g/dL (32.0-36.0); Mean Corpuscular Hemoglobin 33.8 pg (27.0-31.0); Mean Platelet Volume 7.9 fL (7.4-10.4); Platelet Count 182 thou/uL (130-400); RBC Distribution Width 14.5 % (11.5-14.5); Red Blood Cell (RBC) Count 3.11 mill/uL (4.70-6.10); White Blood Cell (WBC) Count 9.8 thou/uL (4.8-10.8)
[2019-10-14 06:12] LABS: Troponin I 0.054 ng/mL (< 0.028)
[2019-10-14] MEDS ORDERED: Heparin 5,000 UNITS/ML VIAL SC SCH (09:00)
[2019-10-14] MEDS ORDERED: Allopurinol 300 MG TAB PO SCH (09:00)
[2019-10-14] MEDS ORDERED: Melatonin 3 MG TAB PO PRN (09:23)
[2019-10-14] MEDS: Allopurinol 100 MG TAB PO SCH (10:28)
[2019-10-14] MEDS: Aspirin 81 mg Enteric Coated Tablet PO SCH (10:28)
[2019-10-14] MEDS: Amiodarone 200 MG TAB PO SCH (10:28)
[2019-10-14] MEDS: Dutasteride 0.5 MG CAP PO SCH (10:28)
[2019-10-14] MEDS: Finasteride 5 MG TAB PO SCH (10:29)
[2019-10-14] MEDS: Gabapentin 100 MG CAP PO SCH ×3 (10:29→20:58)
[2019-10-14] MEDS: Famotidine 20 MG TAB PO SCH (10:29)
[2019-10-14] MEDS: Folic Acid 1 MG TAB PO SCH (10:29)
[2019-10-14] MEDS: Polyethylene Glycol 3350 17 GM Packet PO SCH (10:30)
[2019-10-14] MEDS: Saccharomyces boulardii 250 MG CAP PO SCH (10:30)
[2019-10-14] MEDS: Tamsulosin HCl 0.4 MG CAP PO SCH (10:30)
--- NOTE | 2019-10-14 13:56 | CON ---
DATE OF CONSULTATION: 10/14/2019 REASON FOR CONSULT: No-show for office followup, readmitted due to recurrent malignant pleural effusion. HISTORY OF PRESENT ILLNESS: Mr. Rowland is a pleasant 89-year-old male, who previously followed by Dr. Mcknight. The patient with known history of bilateral renal lithiasis, the patient was followed by Dr. Mcknight previously and was on observation for extensive right ureteral stone burden. She did treat him with circumcision, evacuation of tiny bladder stone, I subsequently acquired his care as he presented in January 2019 with severe sepsis, high-grade right ureteral obstruction and calyceal rupture with subcapsular hematoma. As he presented with sepsis, he did require surgery, i.e. ureteroscopy, staged intervention. 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 He subsequently underwent stent pull in March 2019. He required extensive cardiopulmonary optimization to proceed with surgery. Staging CT demonstrated no evidence of ureteral calculi. I was involved in his care recently as he was admitted on September 25, 2019. Cardiology obtained CT due to vague left lower quadrant abdominal discomfort. This demonstrated as previous bilateral renal calculi, with mild right hydronephrosis due to a 6 mm x 2 mm right mid ureteral calculi. He has no discomfort with his right ureteral calculi. He is currently admitted as he has recurrence of his malignant pleural effusion, presented with shortness of breath. He denies dysuria, gross hematuria, right flank pain. He has vague left lower quadrant abdominal discomfort as previous. This is not changed from prior admission and appears comfortable on physical exam. Palliative care consult was obtained on last visit due to the patient's significant comorbidities, severe CHF, and recurrent left pleural effusion and requiring 1.9 L to be evacuated. Per last palliative care, family was considering transition into hospice palliative care and they have been reconsulted, appointment pending. Patient was provided IV vancomycin cefepime on arrival in the ER. PAST MEDICAL HISTORY: Asthma, cardiomyopathy with history of atrial fibrillation, CHF followed by K[facility] and Dr. Woodward, hyperlipidemia, type 2 diabetes, hypertension, morbid obesity, history of heart failure, Parkinson's, prostate cancer on observation and previous Casodex discontinued by Med Onc, chronic renal insufficiency followed by Dr. Vera, and history of chronic lymphocytic leukemia followed by Dr. Mccann and chemotherapy on hold due to his performance status being poor. CURRENT MEDICATIONS: Include; 1. Tylenol. 2. Allopurinol 100 mg. 3. Amiodarone. 4. Baby aspirin. 5. Vitamin D.. 7. Donepezil. 8. Dutasteride 0.5. 9. Iron. 10. Gabapentin. 11. Lasix. 12. DuoNeb. 13. Melatonin. 14. Metoprolol. 15. Flomax 1 p.o. daily. 16. Sertraline. ALLERGIES: NO KNOWN DRUG ALLERGIES. SOCIAL HISTORY: History of smoking, quit in 1977. PSYCHIATRIC: Appears to be appropriate, he is cooperative to physical exam and is lucid. PHYSICAL EXAMINATION: VITAL SIGNS: His vital signs are stable. Vital signs; 98.1, 83, 18, 93% on 3 L , and 108/53. The patient not on strict I's and O's. GENERAL: The patient is elderly frail; however, is in no acute distress, conversational dyspnea noted. HEENT: Grossly unremarkable. Dry oropharynx. HEART: Regular rate. LUNGS: Decreased breath sounds on the left, consistent with current admission. ABDOMEN: Morbidly obese. There is no evidence of flank tenderness bilaterally. He has mild left mid to lower quadrant abdominal discomfort on deep palpation. However, there is no rigidity. No rebound. No evidence of right lower quadrant or flank tenderness of concern. EXTREMITIES: No edema is noted. There is diffuse petechiae of his upper and lower extremities skin. NEUROLOGIC: Difficult to assess as he is bedridden; however, there appears to be no gross focal deficits per se. Muscle strength decreased mobility of upper and lower extremities. PSYCHIATRIC: Appears to be appropriate and intact. . Circumcised, meatus is grossly unremarkable, bilateral testes unremarkable. Digital rectal exam demonstrates no discrete nodularity. PERTINENT LABORATORY AND IMAGING DATA: White count 9.8, hemoglobin 10.5, and platelet 182. No significant left shift. BMP profile reviewed, in which creatinine is 2.35. His baseline creatinine is variable from 1.1 to 3.7. He is at his baseline creatinine. Pertinent imaging, recent CT of the abdomen and pelvis, which I ordered on October 09 for staging demonstrates stable findings. There is mild right hydronephrosis due to stable right mid ureteral calculi per my review, measuring 5 mm in craniocaudal dimension by 2 to 3 mm in transverse dimension. Extensive bilateral renal calculi. Redemonstration of bilateral pleural fluid, left significantly greater than right, appears to be loculated. Chest x-ray demonstrates very large left pleural effusion, where stable right pulmonary nodule. IMPRESSION: Mr. Rowland is an 89-year-old male with significant comorbidities of : 1. Advanced age. 2. CLL with recurrent left malignant pleural effusion. 3. Severe congestive heart failure and atrial fibrillation. 4. Deconditioned. 5. Urologic issues of horseshoe kidney. 6. Prostate cancer on watchful waiting. Digital rectal exam today demonstrates , no discrete nodularity of concern. 7. History of extensive bilateral renal calculi. Given his significant comorbidities, previously only treated his presenting right obstructing ureteral calculi in January 2019. 8. Recent CT demonstrating stable 6 mm x 2 mm right mid ureteral calculi. The patient is asymptomatic. RECOMMENDATION: I did have a long discussion with patient, subsequently I contacted his . He has had accelerated recurrence of his left pleural effusion, which is concerning. I agree with palliative hospice care. Long discussion with to consider palliative hospice care given his comorbidities and accelerated recurrence of malignant pleural effusion concerning. Regarding his right ureteral and bilateral renal calculi stone burden, previously we did treat his right ureteral calculi as he presented with severe sepsis life-threatening. He is asymptomatic at this time, I do not recommend surgical intervention for now, as he remains very frail, and high risk cardiopulmonary comorbidities with recurrent malignant pleural effusion. He is currently being monitored for medical expulsion therapy as an option for his right ureteral calculi. will discuss with hospice palliative care regarding their final disposition, the patient himself verbalizes that he does not desire to pursue high risk surgery. This was relayed to the . Job ID: [id number] [facility]
[2019-10-14] MEDS ORDERED: Topiramate 25 MG TAB PO SCH (14:00)
--- NOTE | 2019-10-14 15:07 | PDOC.PALCO ---
Palliative Care Consult - Consult Details Requesting Physician: Dr Owen Reason for Consult: goals of care, assistance with communication prognosis/ disease, family support - Pertinent HPI Mr Rowland is a 89 year old male who is well known to the Palliative Care Team. He experienced increase in shortness of breath and presented to the emergency room for evaluation. Known history of pleural effusion. Evaluation identified enlarging left pleural effusion, elevated BNP. Admitted for further medical management. Found to also have recurrent renal calculi. - Pertinent PMH CHF, CLL, DM II, Atrial fib, Cardiomyopathy, Prostate Cancer, Renal failure, Morbid Obesity - Social History Smoking Status: Former smoker Smoking: quit greater than 1 year Alcohol Use: none Drug Use History: none Living Situation: - Medications MAR Reviewed: Yes - Allergies Allergies/Adverse Reactions: Allergies Allergy/AdvReac Type Severity Reaction Status Date / Time No Known Drug Allergies Allergy Verified 09/24/19 17:10 - Subjective Sleeping but arousable, weakness. Short conversation and patient wished to return to sleep. - ROS Constitutional: alert, weakness ENT: other (denies difficulty swallowing, congestion) Respiratory: shortness of breath, other (denies cough) Cardiology: other (Dneies chest pain or palpitations) Gastrointestinal: abdominal pain Musculoskeletal: arthritis/arthralgias - Objective Vital Signs: Vital Signs - Most Recent Temp Pulse Resp BP Pulse Ox 98.1 F 83 18 108/53 L 93 L 10/14/19 09:15 10/14/19 09:15 10/14/19 09:15 10/14/19 09:15 10/14/19 09:15 Palliative Performance Scale: 40 - Physical Exam Constitutional: ill appearing HEENT: EOMI, moist MMs Respiratory: diminished lung sound Cardiovascular: RRR Gastrointestinal: continent, soft Genitourinary: continent Musculoskeletal: no cyanosis, no clubbing Neurology: moves all 4 limbs, no focal deficits Skin: cap refill <2 seconds, fragile Psychiatric: A&O x 3, depressed - Problem List (1) UZMA (acute kidney injury) Code(s): N17.9 - ACUTE KIDNEY FAILURE, UNSPECIFIED Current Visit: No Status : Acute (2) Acute on chronic systolic (congestive) heart failure Code(s): I50.23 - ACUTE ON CHRONIC SYSTOLIC (CONGESTIVE) HEART FAILURE Current Visit: No Status: Acute (3) Anemia in CKD (chronic kidney disease) Code(s): N18.9 - CHRONIC KIDNEY DISEASE, UNSPECIFIED; D63.1 - ANEMIA IN CHRONIC KIDNEY DISEASE Current Visit: No Status: Acute (4) Palliative care encounter Code(s): Z51.5 - ENCOUNTER FOR PALLIATIVE CARE Current Visit: No Status: Acute (5) Pleural effusion Code(s): J90 - PLEURAL EFFUSION, NOT ELSEWHERE CLASSIFIED Current Visit: No Status: Acute (6) Obesity (BMI 30-39.9) Code(s): E66.9 - OBESITY, UNSPECIFIED Current Visit: No Status: Chronic (7) Physical deconditioning Code(s): R53.81 - OTHER MALAISE Current Visit: No Status: Chronic (8) Ureterolithiasis Code(s): N20.1 - CALCULUS OF URETER Current Visit: No Status: Chronic - Plan/Recommendations Plan: Conversation with family. Stated that Palliative Care would follow up after assessing patient Mr Rowland is sleepy and able to have slight conversation, but then requested to return to sleep and have me "call his family". Phone call to family. Initially discussed patient and urology not able to pursue any further procedures secondary to patient fragile state. Revisited patient chronic multiple morbidities. Discussed recurrent hospital visits, decline and quality of life. Mr Rowland defers decisions to son and . Because they feel oral chemo is slowing the pleural effusions they will not consider stopping oral chemo to transition to Hospice. They also hope to in the future have the renal calculi managed with ultrasound. Continue with all aggressive measures, state that they do not want Mr Rowland to suffer, but do not want to transition to hospice. Communicated with Dr Owen prior to discussion with patient family [75] minutes spent on this encounter with >50% of the time in counseling and coordination of care. Thank you for this very appropriate consult.
[2019-10-14] MEDS: Ferrous Sulfate 325 MG TAB PO SCH (18:18)
[2019-10-14] MEDS: Albumin 25% 25 GM/100 ML BOT IVPB SCH (18:27)
[2019-10-14] MEDS: DOBUTamine 500 mg/250 ml 500 MG in Premix Bag 1 BAG IVPB SCH (18:28)
[2019-10-14 20:52] LABS: Bacteria/HPF None Seen HPF (None Seen); Bilirubin Negative (Negative); Blood, Urine 2+ (Negative); Clarity Clear (Clear); Glucose, Urine (Dipstick) Normal (Negative); Leukocyte 25 Leu/uL (Negative); Nitrite Negative (Negative); Protein, Urine (Dipstick) Negative (Neg-Trace); RBC/HPF Greater than 50 HPF (0-3); Squamous Epithelial 0-3 HPF (0-3); Urobilinogen Normal mg/dL (Less than 2)
[2019-10-14] MEDS: IBRUTINIB 280 MG PO SCH (20:57)
[2019-10-14] MEDS: Donepezil HCl 5 MG TAB PO SCH (20:58)
[2019-10-14] MEDS: Atorvastatin Calcium 20 MG TAB PO SCH (20:58)
[2019-10-14] MEDS ORDERED: Apixaban 2.5 MG TAB PO SCH (21:00)
[2019-10-15 03:58] LABS: #Basophils 0.1 thou/uL (0.0-0.2); #Eosinphils 0.2 thou/uL (0.0-0.7); #Lymphocytes 3.9 thou/uL (1.20-3.40); #Monocytes 0.5 thou/uL (0.11-0.59); #Neutrophils 3.9 thou/uL (1.40-6.50); %Basophils 1.6 % (0.0-1.0); %Eosinophils 1.8 % (0.0-10.0); %Lymphocytes 45.1 % (21.0-51.0); %Neutrophils 45.5 % (42.0-75.0); Hemoglobin 9.9 g/dL (14.0-18.0); Mean Corpuscular HGB CONC 31.6 g/dL (32.0-36.0); Mean Corpuscular Hemoglobin 33.4 pg (27.0-31.0); Mean Platelet Volume 7.9 fL (7.4-10.4); Platelet Count 168 thou/uL (130-400); RBC Distribution Width 14.7 % (11.5-14.5); Red Blood Cell (RBC) Count 2.97 mill/uL (4.70-6.10); White Blood Cell (WBC) Count 8.5 thou/uL (4.8-10.8)
[2019-10-15 04:10] LABS: PTT 30.1 SEC (22.9-36.1)
[2019-10-15 04:17] LABS: INR-International Normal Ratio 1.2; Prothrombin Time 15.2 SEC (12.0-14.7)
[2019-10-15 04:21] LABS: ALT (SGPT) 13 U/L (8-55); AST (SGOT) 17 U/L (5-34); Albumin 3.5 g/dL (3.4-4.8); Alkaline Phosphatase 48 U/L (40-110); Anion Gap 13 mmol/L (10-20); BUN (Urea Nitrogen) 27 mg/dL (8.4-25.7); Bilirubin, Total 0.7 mg/dL (0.2-1.2); Calc. Creatinine Clearance 34 mL/min (70-130); Calcium 8.9 mg/dL (7.8-10.44); Carbon Dioxide 29 mmol/L (23-31); Chloride 106 mmol/L (98-107); Estimated GFR-MDRD 30; Globulin 2.8 g/dL (2.4-3.5); Glucose 90 mg/dL (83-110); Magnesium 2.1 mg/dL (1.6-2.6); Potassium 3.8 mmol/L (3.5-5.1); Protein, Total 6.3 g/dL (5.8-8.1); Sodium 144 mmol/L (136-145)
[2019-10-15] MEDS: Albumin 25% 25 GM/100 ML BOT IVPB SCH ×2 (06:01→18:10)
--- NOTE | 2019-10-15 06:49 | CON ---
DATE OF CONSULTATION: 10/14/2019 This is from [facility]. REASON FOR CONSULT: Management of cardiac function during severe malignant pleural effusion. HISTORY OF PRESENT ILLNESS: Mr. Pierre Rowland, 89-year-old male with CLL and recurring malignant pleural effusion, but has ejection fraction of 25%, was admitted for severe shortness of breath. He has a recurring left pleural effusion due to chronic lymphocytic leukemia. He undergone thoracentesis once before. It started to reaccumulate with the last visit. He was discharged home. He did well for a while. Over the last 10 days, he began to have increasing shortness of breath. This shortness of breath is not associated with exertion. It occurs at rest. It became worse and worse over the last 4 to 5 days to the point is becoming intolerable. A chest x-ray was done. It was reported to be a large left pleural effusion. He does have ischemic cardiomyopathy with ejection fraction of 25%. He also has quite a bit of arrhythmia. He did not require that much diuretics. He was on a combination of spironolactone and torsemide 20 mg daily. The torsemide 20 mg dried him out too much. He had elevated BUN and creatinine. So, torsemide 20 mg daily had to be carried down to just three times a week. PAST MEDICAL HISTORY: 1. CLL, currently being treated. There is a lung mass. There is also recurrent left-sided malignant pleural effusion due to CLL. 2. Heart failure with reduced ejection fraction due to ischemic cardiomyopathy, EF about 25%. 3. Non-revascularizable coronary artery disease. 4. History of hypertension. 5. 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 6. History of recurrent renal calculi. 7. Parkinson disease. SOCIAL HISTORY: He is a nonsmoker. He does not drink alcohol. Does not use illicit drugs. Lives with his who is to him for over 49 years. He also lives with his son. FAMILY HISTORY: His father at age 98, but he cannot recall the causes. His mother also of old age, but he does not remember, but in the current condition is noncontributory. REVIEW OF SYSTEMS: GENERAL: He is fatigued, but does not have fever or chills. HEENT: There is no change in vision, hearing, or swallowing. PULMONARY: Please see HPI. CARDIAC: He denied palpitation, chest pain, or syncope. GI: He has lost appetite due to shortness of breath. : He does not complain of flank pain. However, he does have a left upper quadrant pain that is diffuse and nonspecific in nature. EXTREMITIES: Lower extremities, he did not complain of any new edema. MUSCULOSKELETAL: There is no new muscle or joint pain. INTEGUMENT: There is no complaint of new skin breakdown. NEUROLOGIC: He has chronic Parkinson disease tremor, however, there are no new focal deficits or weaknesses. CURRENT MEDICATIONS: 1. Donepezil 5 mg daily. 2. Avodart 0.5 mg daily. 3. Amiodarone 200 mg daily. 4. Albuterol nebs every 4 hours p.r.n. 5. Aspirin 81 mg daily. 6. Apixaban 2.5 mg b.i.d. 7. Iron sulfate 325 mg each night. 8. Flomax 0.4 mg daily. 9. Ibrutinib 280 mg daily, this is a CLL medication. 10. Atorvastatin 20 mg at bedtime. 11. Melatonin 6 mg p.r.n. 12. MiraLAX 17 g daily. 13. Gabapentin 100 mg t.i.d. 14. Pepcid 20 mg q.a.m. 15. Proscar 5 mg daily. 16. Multivitamin one tablet daily. 17. Sertraline 100 mg daily. 18. Allopurinol 100 mg daily. PHYSICAL EXAMINATION: Telemetry was reviewed. It showed that he is paced about 75 beats per minute. However, there were PVCs and ectopies. It looks like that he did not have a good percentage of effective Bi-V pacing. His O2 saturation is 90% on 3 L of nasal cannula oxygen, and before the pacemaker adjustment I did. Blood pressure was 104/67 before adjustment and increased to 116/72 post adjustment. GENERAL: He appears fatigued, reclining in bed and is short of breath and has difficulty in maintaining long sentences. HEENT: EOMI. Oropharynx benign with moist mucosa. NECK: JVP is elevated about 11 cm. PULMONARY: He has good air movement, but coarse breath sounds, a little bit wheeze and rhonchi at the right base. To the left upper lung, there is some air movement, but then from the lower two-third absent breath sounds on the left lung. ABDOMEN: Large, soft. There is some diffuse tenderness at the left upper quadrant that is nonspecific. LOWER EXTREMITIES: Without edema and palpable dorsalis pedis pulses bilaterally. LABORATORY DATA: Chemistry values from yesterday consist of sodium 141, potassium 4, BUN 28, creatinine 2.35, total bilirubin 0.4. DIAGNOSTIC DATA: Chest x-ray was also reviewed. There is very large left pleural effusion that covers about 80% of the left chest. PROCEDURE: His pacemaker AICD was interrogated and also reprogrammed, it is [employer] device Viva quad XT GROUP PRACTICE PEDIATRICIAN-D [id number]. Setting: His DDDR with lower rate of 75 beats per minute at [employer] GROUP PRACTICE PEDIATRICIAN mode. There is no VT. There is no VF. There is also no atrial fibrillation. He has combination A-Bi-V paced and Bi-V paced. Thoracic impedance has increased a little bit, but if thoracic impedance is actually higher than his last admission, this shows there is not as much fluid overload. There was quite a bit escape rhythm from the atrium, different rate ranges were adjusted and also ventricular rate stabilization also was engaged. The lower rate limit was increased from 75 to 90 beats per minute. The patient felt a lot better at 90 beats per minute and also this greatly reduced amount of the ectopy. This is done for palliative reasons. In severe left pleural effusion and cancerous state, I am adjusting his Bi-V CRTD to maximize his cardiac output for comfort. ASSESSMENT: 89-year-old gentleman who is having severe shortness of breath due to recurring and fast reaccumulating left pleural effusion which is malignant. This will need thoracentesis or perhaps a chest tube or equivalent for relief. He also has [place] [employer] stage C and [place] [employer] Association class III heart failure with reduced ejection fraction due to ischemic cardiomyopathy; however, this large amount of pleural effusions is caused by CLL , it cannot be removed by diuresis. However, I will do the best I can to make him comfortable and support a possible thoracentesis or chest tube placement if desired. Please see the following for recommendations. RECOMMENDATIONS: 1. Increase his basal rate to 90 beats per minute with ventricular stabilization. This combination is meant to increase cardiac output and decrease amount of ectopy to provide comfort. 2. Start dobutamine 2.5 mcg/kg/minute. This is intended to recover his renal function some, so it will support thoracentesis if needed. 3. Albumin 25 g IV q.12 hours. Again this will draw fluid from his tissue and support thoracentesis or chest tube placement if desired. 4. Please consider consulting his primary roof painter or CT surgery about potential thoracentesis or placement of a chest tube or equivalent that will allow long- term drainage. 5. Please hold Lasix 40 mg IV for now. It is not going to help his pleural effusion. It just worsens his kidney function and drops his blood pressure even more. 6. Please do replace electrolytes to make sure potassium stays 4 or better and also magnesium is 2 or better. This will keep the arrhythmia at bay. 7. Please consider palliative care and hospice. The hospice may be the most reasonable route at this point. In the meantime, I will do whatever I can to have a good cardiac output, so he will feel comfortable. 8. When the hospice care is ready, then we can stop the minimal support dobutamine. It has been a pleasure of taking care of Mr. Rowland. If you have any questions, please give me a call. This visit include H&P and GROUP PRACTICE PEDIATRICIAN-D interrogation with reprograming procedure. The overall duration was about 90 minutes. Job ID: [id number] [facility]
[2019-10-15] MEDS: Aspirin 81 mg Enteric Coated Tablet PO SCH (08:51)
[2019-10-15] MEDS: Dutasteride 0.5 MG CAP PO SCH (08:52)
[2019-10-15] MEDS: Tamsulosin HCl 0.4 MG CAP PO SCH (08:52)
[2019-10-15] MEDS: Gabapentin 100 MG CAP PO SCH ×3 (08:52→20:22)
[2019-10-15] MEDS: Saccharomyces boulardii 250 MG CAP PO SCH (08:52)
[2019-10-15] MEDS: Folic Acid 1 MG TAB PO SCH (08:53)
[2019-10-15] MEDS: Allopurinol 100 MG TAB PO SCH (08:53)
[2019-10-15] MEDS: Finasteride 5 MG TAB PO SCH (08:53)
[2019-10-15] MEDS: Ferrous Sulfate 325 MG TAB PO SCH ×2 (08:53→16:07)
[2019-10-15] MEDS: Famotidine 20 MG TAB PO SCH (08:54)
[2019-10-15] MEDS: Amiodarone 200 MG TAB PO SCH (08:54)
[2019-10-15] MEDS: Polyethylene Glycol 3350 17 GM Packet PO SCH (08:58)
[2019-10-15] MEDS ORDERED: Furosemide 40 MG/4 ML VIAL SLOW IVP SCH ×2 (09:00→18:00)
--- NOTE | 2019-10-15 09:31 | PRG ---
DATE OF SERVICE: 10/15/2019 SERVICE: [facility]. HISTORY: Mr. Rowland had a good day. After the pacemaker adjustment and also a small amount of dopamine, he felt much better. He is stronger. He is more energetic. He was also . However, he has continued shortness of breath due to the left pleural effusion that really has not changed. REVIEW OF SYSTEMS: GENERAL: There is no fever, chills, or productive cough. HEENT: There is no change in vision, hearing, or swallowing. PULMONARY: Please see HPI. CARDIAC: There is no chest pain, palpitations, or syncope. GI: He still has a nondescript general left abdominal pain. : He is able to urinate. MUSCULOSKELETAL: He is not complaining of pain. INTEGUMENT: He is not complaining of new skin breakdown. NEUROLOGIC: He has chronic Parkinson disease, tremor, but there are no new focal deficits or weakness. MEDICATIONS: His current cardiac medications include: 1. Amiodarone at 200 mg daily. 2. Aspirin 81 mg daily. 3. Atorvastatin 20 mg q.h.s. 4. Dobutamine now is 2.5 mcg/kg per minute. 5. Toprol-XL at 25 mg q.12 h. 6. This is not a cardiac medication, but he is also on Flomax 0.4 mg daily. 7. This is not a cardiac medication, but he is also on ibrutinib, it is a CLL treatment medication. PHYSICAL EXAMINATION: TELEMETRY: His telemetry was reviewed. He has paced rhythm, A paced, V paced, and there are some PVCs but a lot less than yesterday. VITAL SIGNS: His latest vital signs, heart rate 94 and blood pressure 135/55. His oxygen saturation is 95% on 3 L by nasal cannula. GENERAL: He is alert and conversational, reclining comfortably in bed. He is more energetic today, able to speak in longer sentences. HEENT: Shows EOMI, oropharynx benign. There is moist mucosa. NECK: His JVP is about 11 cm. PULMONARY: Good air movement of right upper lung carlin, but there is diffuse wheeze on the right. There are right basilar crackles. In the left lung, there is air movement in the top one-quarter. There is absent breath sound in the lower two-thirds of the left base. ABDOMEN: Soft, but distended, some nonspecific diffuse discomfort of the left abdomen. EXTREMITIES: His lower extremities have minimal edema. Positive dorsalis pedis pulses bilaterally. LABORATORY DATA: His laboratory values show chemistry, current sodium 144, potassium of 3.8, BUN 27, creatinine 2.08 which is an improvement. His albumin with supplementation is 3.5. ASSESSMENT: An 89-year-old gentleman who suffers from a very large left pleural effusion caused by chronic lymphocytic leukemia. This is the principal cause of his shortness of breath at the current admission. Please consult Surgical Service for potential chest tube or some permanent relief device that would relieve this. I have adjusted his cardiac condition to go through this procedure. He should be able to undergo a chest tube placement or a similar device without too much problems. However, given his condition, the overall prognosis is very grim. The best course of action still is hospice. Please see the following recommendations. RECOMMENDATIONS: 1. Continue dobutamine 2.5 mcg/kg per minute for now. It is helping with his cardiac output to improve his renal condition. 2. Now add Lasix 40 mg IV once daily. 3. If the blood pressure is high, we will also add back spironolactone at 25 mg daily. 4. If desired, the patient can undergo chest tube placement or similar device. His cardiac condition should be able to support this. 5. If the patient decides to go hospice; this will be a very reasonable choice, perhaps the best choice. It has been a pleasure taking care of Mr. Pierre Rowland. If you have any questions, please give me a call. Job ID: [id number]
--- NOTE | 2019-10-15 09:50 | PRG ---
DATE OF SERVICE: 10/15/2019 SUBJECTIVE: The patient has baseline shortness of breath due to presenting left pleural effusion. Denies fever, chills, or right flank or abdominal pain. He has continued left lower quadrant abdominal pain, however, there was no pathology on CT. OBJECTIVE: VITAL SIGNS: Vital signs are stable. Temperature 98, heart rate 89 , respiratory rate 18, oxygen saturation 95%, and blood pressure 129/63. I's and O's 650 of urine output. GENERAL: The patient has conversational dyspnea. ABDOMEN: Soft. No rigidity. No rebound. No CVA tenderness is appreciated. PERTINENT LABORATORY DATA: White count 8, hemoglobin 9.9, and platelets 168. Creatinine is 2.08, which is near his baseline. UA demonstrates pH of 5.0, 50 rbc's, 7 to 10 wbc's. No epithelials, no bacteria seen. Culture pending. IMPRESSION AND PLAN: Mr. Rowland is an 89-year-old male with: 1. Advanced age. 2. 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 3. Severe congestive heart failure with ejection fraction of 25%. 4. Deconditioning. 5. Horseshoe kidney. 6. Prostate cancer, on watchful waiting. Digital rectal exam on this admission is unremarkable. 7. History of extensive bilateral renal stone burden. Prior history of multiple right ureteral calculi treated as he presented with life-threatening sepsis and subcapsular bleed. Current CT demonstrates hydronephrosis, mild, with 6 mm x 2 mm right mid ureteral calculi, which on followup CT stable in location, however, persists. He is asymptomatic with no flank pain. UA negative for bacteria. RECOMMENDATIONS: Although I discussed the patient's case with his , my concern is regarding the realistic expectation regarding Mr. Rowland's condition. Despite the fact that I informed her that he is high risk for surgery, I did review his palliative care note which they allude that he would undergo ultrasound treatment for his ureteral calculi. His ureteral calculi is challenging to treat, due to deviated ureter and a horseshoe kidney. I informed Mr. Rowland if he presents in similar fashion, as last year critically ill from ureteral calculi certainly options of proceeding with surgical intervention will be discussed. In the meantime, as he presents with recurrent malignant pleural effusion, deconditioned status, trial of medical expulsion therapy for his ureteral calculi seems reasonable. CT surgery has been consulted due to recurrent malignant pleural effusion, which is accelerated. The patient's family should consider multi-disciplinary meeting regarding his cardiopulmonary status for realistic expectations of his clinical status. Job ID: [id number] MTDD
[2019-10-15] MEDS ORDERED: Spironolactone 25 MG TAB PO SCH (10:30)
[2019-10-15] MEDS: Multivit, Therapeutic 1 TAB PO SCH (16:07)
--- NOTE | 2019-10-15 18:31 | PDOC.HOSPP ---
- Subjective Encounter Date: 10/15/19 Encounter Time: 09:00 Subjective: Patient seen and examined for SOB. Feels the same. No CP. No other complaints. No overnight events - Objective Vital Signs & Weight: Vital Signs (12 hours) Temp Pulse Pulse Pulse Resp BP BP 10/15/19 16:12 97.8 F 89 18 10/15/19 11:18 98.3 F 97 21 H 10/15/19 10:59 98.8 F 103 H 11 L 10/15/19 09:30 88 89 143/75 H 134/61 10/15/19 08:43 92 90 133/59 L 105/52 L 10/15/19 07:13 98.0 F 94 17 BP Pulse Ox Pulse Ox 10/15/19 16:12 117/66 95 10/15/19 11:18 154/63 H 96 10/15/19 10:59 124/59 L 100 10/15/19 09:30 10/15/19 08:43 96 10/15/19 07:13 135/55 L 97 Weight Admit Weight 209 lb 14.4 oz Weight 213 lb I&O: 10/14/19 10/15/19 10/16/19 06:59 06:59 06:59 Intake Total 450 480 570 Output Total 650 580 Balance 450 -170 -10 Result Diagrams: 10/15/19 03:48 10/15/19 03:48 Radiology Reviewed by me: Yes (CXR - reviewed) EKG Reviewed by me: Yes (Tele paced) Hospitalist ROS - Review of Systems Cardiovascular: denies: chest pain, palpitations, orthopnea, paroxysmal noc. dyspnea, edema, light headedness, other Gastrointestinal: denies: nausea, vomiting, abdominal pain, diarrhea, constipation, melena, hematochezia, other - Medication Medications: Active Medications Generic Name Dose Route Start Last Admin Trade Name Freq PRN Reason Stop Dose Admin Allopurinol 100 mg 10/14/19 09:00 10/15/19 08:53 Zyloprim PO 100 mg DAILY BERNARDINO Administration Amiodarone HCl 200 mg 10/14/19 09:00 10/15/19 08:54 Cordarone PO 200 mg DAILY BERNARDINO Administration Aspirin 81 mg 10/14/19 09:00 10/15/19 08:51 Ecotrin PO 81 mg DAILY BERNARDINO Administration Atorvastatin Calcium 20 mg 10/14/19 21:00 10/14/19 20:58 Lipitor PO 20 mg HS BERNARDINO Administration Cholecalciferol 1,000 units 10/14/19 09:00 10/15/19 08:52 Vitamin D3 PO 1,000 units DAILY BERNARDINO Administration Donepezil HCl 5 mg 10/14/19 21:00 10/14/19 20:58 Aricept PO 5 mg HS BERNARDINO Administration Dutasteride 0.5 mg 10/14/19 09:00 10/15/19 08:52 Avodart PO 0.5 mg DAILY BERNARDINO Administration Famotidine 20 mg 10/14/19 09:00 10/15/19 08:54 Pepcid PO 20 mg QAM BERNARDINO Administration Ferrous Sulfate 325 mg 10/14/19 17:00 10/15/19 16:07 Feosol PO 325 mg BID-WM BERNARDINO Administration Finasteride 5 mg 10/14/19 09:00 10/15/19 08:53 Proscar PO 5 mg DAILY BERNARDINO Administration Folic Acid 1 mg 10/14/19 09:00 10/15/19 08:53 Folvite PO 1 mg DAILY BERNARDINO Administration Furosemide 40 mg 10/15/19 18:00 10/15/19 18:11 Lasix SLOW IVP 10/15/19 20:00 40 mg NOW BERNARDINO Administration Gabapentin 100 mg 10/14/19 09:00 10/15/19 16:07 Neurontin PO 100 mg TID BERNARDINO Administration Dobutamine HCl/Dextrose 500 mg 250 mls @ 7.14 mls/hr 10/14/19 18:00 10/14/19 18:28 / Device IVPB 250 mls INF BERNARDINO Administration Protocol 2.5 MCG/KG/MIN Metoprolol Succinate 25 mg 10/14/19 21:00 10/15/19 08:53 Toprol Xl PO 25 mg Q12HR BERNARDINO Administration Multivitamins 1 tab 10/15/19 14:00 10/15/19 16:07 Theragran PO 1 tab 1400 BERNARDINO Administration Ibrutinib [Imbruvica 1 each 10/14/19 21:00 10/14/19 20:57 ] 280 Mg PO 1 each HS BERNARDINO Administration Polyethylene Glycol 17 gm 10/14/19 09:00 10/15/19 08:58 Miralax PO Not Given DAILY BERNARDINO Saccharomyces Boulardii 250 mg 10/14/19 09:00 10/15/19 08:52 Florastor PO 250 mg DAILY BERNARDINO Administration Sertraline HCl 100 mg 10/15/19 09:00 10/15/19 08:52 Zoloft PO 100 mg DAILY BERNARDINO Administration Tamsulosin HCl 0.4 mg 10/14/19 09:00 10/15/19 08:52 Flomax PO 0.4 mg DAILY BERNARDINO Administration - Exam General Appearance: NAD Neck: supple Respiratory: wheezes (on Rt upper) Respiratory - other findings: dim AE at left lower 1/2 Gastrointestinal: soft, non-tender, non-distended Extremities: no cyanosis, no clubbing Hosp A/P - Plan DVT proph w/SCDs Gen weakness/SOB - multifactorial Recurrent L Pleural effusion due to CLL CKD 3 Chronic systolic HF 25-30% h/o NSVT DM2 Chronic anticoag - no new episodes of bleeding Thrombocytopenia Horseshoe kidney with B/L renal calculi L ureteral calculi with hydronephrosis Prostate CA Physical deconditioning Type 2 NV - POA COPD PLAN: On Dobutamine drip Eliquis on hold for possible Pleurx catheter ACEI/ARB on hold due to UZMA Cont Toprol XL Cont Ibrutinib Cont other meds as above AM labs Case d/w Palliative care for family meeting
--- NOTE | 2019-10-15 18:48 | PDOC.EVN ---
Event Note - Event Note Event Note: Case d/w Dr Miller - Patient not a candidate for Pleurx catheter
[2019-10-15] MEDS: Donepezil HCl 5 MG TAB PO SCH (20:22)
[2019-10-15] MEDS: Apixaban 2.5 MG TAB PO SCH (20:22)
[2019-10-15] MEDS: Atorvastatin Calcium 20 MG TAB PO SCH (20:22)
[2019-10-15] MEDS: IBRUTINIB 280 MG PO SCH (20:23)
[2019-10-16] MEDS: Acetaminophen 325 MG TAB PO PRN ×3 (00:05→20:24)
[2019-10-16 04:01] LABS: #Basophils 0.1 thou/uL (0.0-0.2); #Eosinphils 0.2 thou/uL (0.0-0.7); #Lymphocytes 4.3 thou/uL (1.20-3.40); #Monocytes 0.5 thou/uL (0.11-0.59); #Neutrophils 3.8 thou/uL (1.40-6.50); %Basophils 1.1 % (0.0-1.0); %Eosinophils 2.6 % (0.0-10.0); %Monocytes 5.5 % (0.0-10.0); %Neutrophils 42.8 % (42.0-75.0); Hemoglobin 10.1 g/dL (14.0-18.0); Mean Corpuscular HGB CONC 31.8 g/dL (32.0-36.0); Mean Corpuscular Hemoglobin 33.6 pg (27.0-31.0); Mean Platelet Volume 8.5 fL (7.4-10.4); Platelet Count 187 thou/uL (130-400); RBC Distribution Width 14.5 % (11.5-14.5); White Blood Cell (WBC) Count 8.9 thou/uL (4.8-10.8)
[2019-10-16 04:22] LABS: ALT (SGPT) 16 U/L (8-55); AST (SGOT) 20 U/L (5-34); Albumin 3.6 g/dL (3.4-4.8); Alkaline Phosphatase 49 U/L (40-110); Anion Gap 12 mmol/L (10-20); BUN (Urea Nitrogen) 33 mg/dL (8.4-25.7); Bilirubin, Total 0.6 mg/dL (0.2-1.2); Calc. Creatinine Clearance 33 mL/min (70-130); Calcium 9.3 mg/dL (7.8-10.44); Carbon Dioxide 30 mmol/L (23-31); Chloride 105 mmol/L (98-107); Estimated GFR-MDRD 29; Globulin 2.7 g/dL (2.4-3.5); Glucose 94 mg/dL (83-110); Magnesium 2.1 mg/dL (1.6-2.6); Potassium 3.8 mmol/L (3.5-5.1); Protein, Total 6.3 g/dL (5.8-8.1); Sodium 143 mmol/L (136-145)
[2019-10-16] MEDS: DOBUTamine 500 mg/250 ml 500 MG in Premix Bag 1 BAG IVPB SCH (06:25)
[2019-10-16] MEDS: Famotidine 20 MG TAB PO SCH (08:52)
[2019-10-16] MEDS: Finasteride 5 MG TAB PO SCH (08:52)
[2019-10-16] MEDS: Dutasteride 0.5 MG CAP PO SCH (08:53)
[2019-10-16] MEDS: Gabapentin 100 MG CAP PO SCH ×3 (08:53→20:23)
[2019-10-16] MEDS: Saccharomyces boulardii 250 MG CAP PO SCH (08:53)
[2019-10-16] MEDS: Apixaban 2.5 MG TAB PO SCH ×2 (08:53→20:23)
[2019-10-16] MEDS: Allopurinol 100 MG TAB PO SCH (08:53)
[2019-10-16] MEDS: Aspirin 81 mg Enteric Coated Tablet PO SCH (08:53)
[2019-10-16] MEDS: Amiodarone 200 MG TAB PO SCH (08:53)
[2019-10-16] MEDS: Folic Acid 1 MG TAB PO SCH (08:54)
[2019-10-16] MEDS: Spironolactone 25 MG TAB PO SCH (08:54)
[2019-10-16] MEDS: Ferrous Sulfate 325 MG TAB PO SCH ×2 (08:54→16:25)
[2019-10-16] MEDS: Tamsulosin HCl 0.4 MG CAP PO SCH (08:54)
[2019-10-16] MEDS: Polyethylene Glycol 3350 17 GM Packet PO SCH (08:55)
[2019-10-16] MEDS ORDERED: Aspirin 81 mg Enteric Coated Tablet PO SCH (09:00)
--- NOTE | 2019-10-16 09:22 | PRG ---
DATE OF SERVICE: 10/16/2019 SUBJECTIVE: The patient is sleeping, easily arousable. He denies pain. OBJECTIVE: VITAL SIGNS: Stable at 98 temperature, pulse 90, 95% on 3 L. Blood pressure 108/57. I's and O's, 1435 of urine output. ABDOMEN: Morbidly obese, protuberant. There is no rigidity. No rebound. Conversational dyspnea noted as previous. PERTINENT LABORATORY DATA: White count today is 8.9, hemoglobin 10, and platelet 187. Coags within normal limits. BMP profile; creatinine of 2.1, which is his near baseline. Urine culture preliminary is negative. IMPRESSION AND PLAN: Mr. Rowland is an 89-year-old male with: 1. Advanced age. 2. 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 Deemed poor candidate for chest tube by DR Miller 3. Severe congestive heart failure with EF of 20% to 25%. On dobutamine drip 4. Deconditioning. 5. Horseshoe kidney. 6. Prostate cancer on watchful waiting. DIAN on this admission unremarkable. 7. History of extensive bilateral renal stone burden, prior history of multiple right ureteral calculi that was treated as he presented with life-threatening sepsis with subcapsular bleed with hydronephrosis. Current CT demonstrates hydronephrosis which is mild and stable, 6 mm x 2 mm right mid ureteral calculi in which he remains asymptomatic with UA negative. RECOMMENDATIONS: I did conference with multiple physicians on his case including his green hide inspector, CT Surgery, hospitalist. Based on conversation with all specialists, he is deemed high risk and has poor prognosis. Palliative care has been consulted on multiple occasions. I recommend family be consulted in a group meeting with specialists, as he is high risk for surgical intervention due to his comorbidities as above. Job ID: [id number] [facility]
[2019-10-16] MEDS ORDERED: Dextrose 5% in Water 1,000 ML IV PRN (09:37)
[2019-10-16] MEDS ORDERED: Insulin Regular 300 UNITS/3 ML VIAL SC PRN ×2 (09:37)
[2019-10-16] MEDS ORDERED: Dextrose 50% Abboject 50 ML SYRINGE SLOW IVP PRN (09:37)
--- NOTE | 2019-10-16 10:36 | PRG ---
DATE OF SERVICE: 10/16/2019 HISTORY: Mr. Rowland said he had a good day. He said he is breathing easier and is feeling stronger. However, he was visited by the CT surgeon yesterday. His CT surgeon believed that it is too risky to put in a chest tube. So, there is nothing to be done at this point. MEDICATIONS: His current cardiac medications include; 1. Amiodarone 200 mg daily. 2. Eliquis 2.5 mg twice a day. 3. Aspirin 81 mg daily. 4. Atorvastatin 20 mg at bedtime. 5. Dobutamine 2.5 mcg/kg/minute. 6. Toprol-XL at 25 mg q.12 hours. 7. Spironolactone 25 mg daily. Flomax 0.4 mg, this will have an effect on blood pressure, we will lower it. REVIEW OF SYSTEMS: GENERAL: There is no fever, chills, or productive cough. HEENT: There is no change in vision, hearing, or swallowing. PULMONARY: Please see HPI. CARDIAC: There is no complaint of chest pain, palpitations, syncope. GI: He is able to eat, but then he still has a chronic left-sided pain. : He is able to urinate. MUSCULOSKELETAL: There is back pain, but no new complaints above the chronicity. INTEGUMENT: There is no complaint of new breakdown. NEUROLOGIC: He has a chronic Parkinson disease, tremor, but there is no new focal deficits or weaknesses. PHYSICAL EXAMINATION: Telemetry is reviewed. He is primary A paced, V paced and also Bi-V paced. There is some PVC, but there are no concerning arrhythmias. He is being paced at 90 beats per minute. VITAL SIGNS: His last set of vitals, heart rate 90, blood pressure 119/61. GENERAL: He is alert and conversational, on oxygen 3 L by nasal cannula, saturating at 95%. HEENT: Show EOMI. Oropharynx benign with moist mucosa. NECK: His JVP is about 10 cm. LUNGS: He has good air movement in the right lung. There are right basilar crackles. However, lower 3/4 of left lung, he has absent breath sounds at all. This indicated a very large left pleural effusion. CARDIAC: Regular rate and rhythm with 2/6 holosystolic murmur at the apex with radiation to the left axilla. ABDOMEN: Soft, distended, diffuse on nonspecific tenderness of the left flank. EXTREMITIES: Lower extremities are warm, well perfused. Minimal if any edema with positive dorsalis pedis pulses. LABORATORY DATA: His laboratory values this morning are sodium 143, BUN 33, creatinine 2.17. ASSESSMENT: An 89-year-old male has continued reaccumulation of left pleural effusion in the left lung. This is caused by his CLL. It is a noncardiac cause. We are doing as best we can to optimize his cardiac output to support him during this situation. If there is no way for removal of the continued reaccumulating pleural effusion due to CLL; then, the best course of option will be hospice. RECOMMENDATIONS: 1. Restart torsemide 20 mg p.o. daily. 2. Stop IV Lasix. 3. Continue spironolactone 25 mg daily. 4. Please consider redo noncontrast CT scan of the chest to document severity of his pleural effusion. The last CT scan was done some time ago, so it is a mischaracterization of how higher it is now. 5. Please arrange for discussion with family for potential hospice. It has been a pleasure taking care of Mr. Rowland. If you have any questions, please give me a call. Job ID: [id number]
--- NOTE | 2019-10-16 11:39 | CT ---
CT THORAX WITHOUT CONTRAST: Date: 10/16/2019 INDICATION: History of left-sided pleural effusion and shortness of breath. COMPARISON: Prior exam dated 09/20/2019. FINDINGS: Since the comparison examination, there has been interval enlargement of the left-sided pleural effus ion with worsening volume loss in the left lung. There is stable slight shifting of the mediastinum t o the left. Right lower lobe 3 cm lung mass is stable appearing. There is enlarging small to moderate right-sided pleural effusion. Overlying left chest wall pacemaker is stable appearing. Severe vascul ar calcification over the thoracic aorta and coronary arteries is similar appearing. Visualized upper abdomen demonstrates prominent staghorn calculi within the renal collecting system of the horseshoe kidney. There is stable cornelia mesentery within the central abdomen. Gallbladder is surgically absent. There is scattered degenerative and osteoarthritic change. No definite acute osseous abnormality is d emonstrated. IMPRESSION: 1. Enlarging large left and small to moderate right pleural effusion. 2. Worsening volume loss within the left lung with shifting of the mediastinum to the left. 3. Stable cardiomegaly. 4. Stable right lower lobe 3.0 cm mass. 5. Stable numerous calcifications involving horseshoe kidney. POS: BH
[2019-10-16] MEDS: Multivit, Therapeutic 1 TAB PO SCH (14:48)
--- NOTE | 2019-10-16 19:18 | PDOC.HOSPP ---
- Subjective Encounter Date: 10/16/19 Encounter Time: 17:30 Subjective: Patient seen and examined for Gen weakness. Feels the same. No new complaints. No overnight events - Objective Vital Signs & Weight: Vital Signs (12 hours) Temp Pulse Pulse Pulse Resp BP BP 10/16/19 16:06 98.4 F 87 18 10/16/19 11:46 97.6 F 90 18 10/16/19 08:18 88 89 119/61 113/69 10/16/19 08:07 98.0 F 86 18 BP Pulse Ox 10/16/19 16:06 128/66 96 10/16/19 11:46 124/56 L 96 10/16/19 08:18 10/16/19 08:07 119/61 95 Weight Admit Weight 209 lb 14.4 oz Weight 209 lb 4.8 oz I&O: 10/15/19 10/16/19 10/17/19 06:59 06:59 06:59 Intake Total 480 1136 360 Output Total 650 1435 300 Balance -170 -299 60 Result Diagrams: 10/16/19 03:43 10/16/19 03:43 Additional Labs: Accuchecks 10/16/19 10/16/19 17:12 10:58 POC Glucose 116 H 119 H EKG Reviewed by me: Yes (Tele paced) Hospitalist ROS - Review of Systems Cardiovascular: denies: chest pain, palpitations, orthopnea, paroxysmal noc. dyspnea, edema, light headedness, other Gastrointestinal: denies: nausea, vomiting, abdominal pain, diarrhea, constipation, melena, hematochezia, other - Medication Medications: Active Medications Generic Name Dose Route Start Last Admin Trade Name Jasonq PRN Reason Stop Dose Admin Acetaminophen 650 mg 10/14/19 00:45 10/16/19 16:25 Tylenol PO 650 mg Q4H PRN Administration Headache/Fever/Mild Pain (1-3) Allopurinol 100 mg 10/14/19 09:00 10/16/19 08:53 Zyloprim PO 100 mg DAILY BERNARDINO Administration Amiodarone HCl 200 mg 10/14/19 09:00 10/16/19 08:53 Cordarone PO 200 mg DAILY BERNARDINO Administration Apixaban 2.5 mg 10/15/19 21:00 10/16/19 08:53 Eliquis PO 2.5 mg BID BERNARDINO Administration Aspirin 81 mg 10/14/19 09:00 10/16/19 08:53 Ecotrin PO 81 mg DAILY BERNARDINO Administration Atorvastatin Calcium 20 mg 10/14/19 21:00 10/15/19 20:22 Lipitor PO 20 mg HS BERNARDINO Administration Cholecalciferol 1,000 units 10/14/19 09:00 10/16/19 08:52 Vitamin D3 PO 1,000 units DAILY BERNARDINO Administration Donepezil HCl 5 mg 10/14/19 21:00 10/15/19 20:22 Aricept PO 5 mg HS BERNARDINO Administration Dutasteride 0.5 mg 10/14/19 09:00 10/16/19 08:53 Avodart PO 0.5 mg DAILY BERNARDINO Administration Famotidine 20 mg 10/14/19 09:00 10/16/19 08:52 Pepcid PO 20 mg QAM BERNARDINO Administration Ferrous Sulfate 325 mg 10/14/19 17:00 10/16/19 16:25 Feosol PO 325 mg BID-WM BERNARDINO Administration Finasteride 5 mg 10/14/19 09:00 10/16/19 08:52 Proscar PO 5 mg DAILY BERNARDINO Administration Folic Acid 1 mg 10/14/19 09:00 10/16/19 08:54 Folvite PO 1 mg DAILY BERNARDINO Administration Gabapentin 100 mg 10/14/19 09:00 10/16/19 14:48 Neurontin PO 100 mg TID BERNARDINO Administration Dobutamine HCl/Dextrose 500 mg 250 mls @ 7.14 mls/hr 10/14/19 18:00 10/16/19 06:25 / Device IVPB 250 mls INF BERNARDINO Administration Protocol 2.5 MCG/KG/MIN Metoprolol Succinate 25 mg 10/14/19 21:00 10/16/19 08:53 Toprol Xl PO 25 mg Q12HR BERNARDINO Administration Multivitamins 1 tab 10/15/19 14:00 10/16/19 14:48 Theragran PO 1 tab 1400 BERNARDINO Administration Ibrutinib [Imbruvica 1 each 10/14/19 21:00 10/15/19 20:23 ] 280 Mg PO 1 each HS BERNARDINO Administration Polyethylene Glycol 17 gm 10/14/19 09:00 10/16/19 08:55 Miralax PO Not Given DAILY [facility] Saccharomyces Boulardii 250 mg 10/14/19 09:00 10/16/19 08:53 Florastor PO 250 mg DAILY BERNARDINO Administration Sertraline HCl 100 mg 10/15/19 09:00 10/16/19 08:53 Zoloft PO 100 mg DAILY BERNARDINO Administration Spironolactone 25 mg 10/16/19 08:00 10/16/19 08:54 Aldactone PO 25 mg QAM-WM BERNARDINO Administration Tamsulosin HCl 0.4 mg 10/14/19 09:00 10/16/19 08:54 Flomax PO 0.4 mg DAILY BERNARDINO Administration - Exam General Appearance: NAD Neck: supple, no JVD Heart: no gallops Respiratory: rales, rhonchi Respiratory - other findings: dec AE on left Gastrointestinal: soft, non-tender, normal bowel sounds Extremities: no cyanosis Hosp A/P - Plan Gen weakness/SOB - multifactorial Recurrent L Pleural effusion due to CLL CLL on Ibrutinib CKD 3 Chronic systolic HF 25-30% h/o NSVT DM2 Chronic anticoag - on Eliquis Thrombocytopenia Horseshoe kidney with B/L renal calculi L ureteral calculi with hydronephrosis Prostate CA Physical deconditioning Type 2 [place] - POA COPD PLAN: On Dobutamine drip/Torsemide ACEI/ARB on hold due to UZMA Cont Toprol XL Cont other meds as above AM labs Palliative care input appreciated Family meeting tomorrow
[2019-10-16] MEDS: Atorvastatin Calcium 20 MG TAB PO SCH (20:23)
[2019-10-16] MEDS: Donepezil HCl 5 MG TAB PO SCH (20:23)
[2019-10-16] MEDS: IBRUTINIB 280 MG PO SCH (20:24)
[2019-10-17 04:34] LABS: #Basophils 0.1 thou/uL (0.0-0.2); #Eosinphils 0.2 thou/uL (0.0-0.7); #Monocytes 0.4 thou/uL (0.11-0.59); #Neutrophils 3.6 thou/uL (1.40-6.50); %Basophils 0.9 % (0.0-1.0); %Eosinophils 2.1 % (0.0-10.0); %Lymphocytes 48.1 % (21.0-51.0); %Monocytes 5.3 % (0.0-10.0); %Neutrophils 43.5 % (42.0-75.0); Hemoglobin 10.2 g/dL (14.0-18.0); Mean Corpuscular HGB CONC 32.4 g/dL (32.0-36.0); Mean Corpuscular Hemoglobin 34.1 pg (27.0-31.0); Platelet Count 177 thou/uL (130-400); RBC Distribution Width 14.5 % (11.5-14.5); Red Blood Cell (RBC) Count 2.98 mill/uL (4.70-6.10); White Blood Cell (WBC) Count 8.4 thou/uL (4.8-10.8)
[2019-10-17 04:54] LABS: ALT (SGPT) 11 U/L (8-55); AST (SGOT) 14 U/L (5-34); Albumin 3.4 g/dL (3.4-4.8); Alkaline Phosphatase 49 U/L (40-110); Anion Gap 13 mmol/L (10-20); BUN (Urea Nitrogen) 31 mg/dL (8.4-25.7); Bilirubin, Total 0.6 mg/dL (0.2-1.2); Calc. Creatinine Clearance 35 mL/min (70-130); Calcium 9.2 mg/dL (7.8-10.44); Carbon Dioxide 28 mmol/L (23-31); Chloride 106 mmol/L (98-107); Estimated GFR-MDRD 32; Globulin 2.7 g/dL (2.4-3.5); Glucose 104 mg/dL (83-110); Magnesium 2.2 mg/dL (1.6-2.6); Potassium 3.7 mmol/L (3.5-5.1); Protein, Total 6.1 g/dL (5.8-8.1); Sodium 143 mmol/L (136-145)
[2019-10-17] MEDS ORDERED: Torsemide 20 MG TAB PO SCH (09:00)
[2019-10-17] MEDS: Aspirin 81 mg Enteric Coated Tablet PO SCH (09:09)
[2019-10-17] MEDS: Folic Acid 1 MG TAB PO SCH (09:10)
[2019-10-17] MEDS: Saccharomyces boulardii 250 MG CAP PO SCH (09:10)
[2019-10-17] MEDS: Finasteride 5 MG TAB PO SCH (09:10)
[2019-10-17] MEDS: Ferrous Sulfate 325 MG TAB PO SCH ×2 (09:10→16:40)
[2019-10-17] MEDS: Famotidine 20 MG TAB PO SCH (09:11)
[2019-10-17] MEDS: Apixaban 2.5 MG TAB PO SCH ×2 (09:11→20:58)
[2019-10-17] MEDS: Allopurinol 100 MG TAB PO SCH (09:11)
[2019-10-17] MEDS: Gabapentin 100 MG CAP PO SCH ×3 (09:11→20:58)
[2019-10-17] MEDS: Spironolactone 25 MG TAB PO SCH (09:11)
[2019-10-17] MEDS: Tamsulosin HCl 0.4 MG CAP PO SCH (09:11)
[2019-10-17] MEDS: Dutasteride 0.5 MG CAP PO SCH (09:11)
[2019-10-17] MEDS: Amiodarone 200 MG TAB PO SCH (09:12)
[2019-10-17] MEDS: Polyethylene Glycol 3350 17 GM Packet PO SCH (09:12)
--- NOTE | 2019-10-17 09:59 | PRG ---
DATE OF SERVICE: 10/17/2019 SUBJECTIVE: The patient is alert, awake, nursing staff in room currently. OBJECTIVE: VITAL SIGNS: Stable, 97, 92, 18, 97% on 2 L. Blood pressure 113/ 77. I's and O's 845 in and 550 out. ABDOMEN: Morbidly obese, protuberant. No CVA tenderness. PERTINENT LABS: White count 8, hemoglobin 10, and platelets 177. Coagulation profile is within normal limits. Creatinine is 1.99. His baseline creatinine is variable from 1.1 to 3. Urine culture is negative. DIAGNOSTIC STUDIES: Staging CT of the chest October 15 demonstrates enlarging large left and [id number] right pleural effusion, worsening volume loss of the left lung, resulting in shifting of the mediastinum, cardiomegaly, right lower lobe 3-cm mass. IMPRESSION: Mr. Rowland is an 89-year-old male with: 1. 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 Miller, he is a poor candidate for PleurX chest tube. 2. History of severe congestive heart failure, ejection fraction of 20% to 25%, currently on dobutamine drip per Cardiology. 3. Severe deconditioning and advanced age. 4. History of horseshoe kidney with bilateral renal calculi. 5. Prostate cancer, on watchful waiting. Digital rectal examination on this admission is unremarkable. 6. Prior history of multiple right ureteral calculi treated as he presented with life-threatening sepsis of capsular hematoma and hydronephrosis. 7.CT 09/2019 demonstrating mild right hydronephrosis due to stable 6-mm craniocaudal dimension x 2-mm right mid ureteral calculi. He is asymptomatic with urine culture negative. RECOMMENDATIONS: Patient conference to be scheduled today as multiple subspecialists have recommended to family regarding hospice due to his comorbidities advanced age, severe cardiomyopathy, recurrent malignant recurrent pleural effusion. He is a poor surgical candidate, I had informed the patient/family regarding this on multiple occasions. Palliative care consult has been consulted. Recent CT chest scan is concerning with mediastinal shift . he will unlikely tolerate general anesthesia, therefore is a poor candidate for surgical intervention. If the patient and family desire higher level of care or consideration for second opinion, they may do so. Job ID: [id number] [facility]
--- NOTE | 2019-10-17 10:08 | PRG ---
DATE OF SERVICE: 10/17/2019 SUBJECTIVE: I was asked to participate in a discussion regarding Mr. Rowland' status today. I thought best that I would look at him in the hospital since I had already been consulted on this case. I asked him about his breathing. He says that it is acceptable at this point. It looks like his O2 sats around 97% on 2 L nasal cannula. He appears comfortable otherwise. His breath sounds are diminished in the left base, but he does have some air movement in the left apex. His right side is clear. His CT scan showed a fairly sizable left effusion, but also has extreme cardiomegaly on that side. IMPRESSION: Mr. Rowland is succumbing to multitude of factors including his cardiac status, chronic lymphocytic leukemia, malignant effusion, etc. He also has intractable kidney stones. I do not think he is a candidate for any further procedures going forward. He seems to be comfortable with his inevitable . I told him he needs to have a conversation with his son, directly to him. I believe his son has some concerns about what is going to happen to Mr. Rowland' afterward. I told Mr. Rowland that there is a problem that his is going to have to deal with sooner or later. If any further questions, please call. Job ID: [id number]
--- NOTE | 2019-10-17 13:47 | PRG ---
DATE OF SERVICE: 10/17/2019 This is from [facility] consult. HISTORY: Mr. Pierre Rowland had a pretty good day. He had a good appetite. He was able to eat food. He said he is breathing fairly easy. He is feeling fairly energetic. He realized that his life is just nearing. He wants us to convey that message to his . REVIEW OF SYSTEMS: GENERAL: There is no fever, chills, or productive cough. HEENT: There is no change in vision, hearing, or swallowing. PULMONARY: He is still short of breath, but able to breath with a nasal cannula for oxygen. CARDIAC: There is no palpitation, chest pain, or syncope. GI: See HPI. : He is able to urinate. MUSCULOSKELETAL: There are no complaints of joint or muscle pains. INTEGUMENT: There are no complaints or integument breakdown. 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 There is no new focal weaknesses or deficits. MEDICATIONS: His cardiac medications include: 1. Amiodarone 200 mg daily. 2. Apixaban 2.5 mg daily. 3. Aspirin 81 mg daily. 4. Atorvastatin at 20 mg q.h.s. 5. Dobutamine 2.5 mcg/kg per minute. 6. He also is taking ibrutinib for CLL. 7. He has Toprol-XL 25 mg q.12 h. PHYSICAL EXAMINATION: TELEMETRY: Reviewed. He is mostly A-paced, V-paced. There are some PVCs, but they are fairly infrequent. There is no concerning arrhythmia. VITAL SIGNS: His current vitals are heart rate 90, blood pressure 116/65. GENERAL: He is alert and conversational. He is eating lunch, sitting up in bed. HEENT: Shows EOMI. Oropharynx is benign. NECK: His JVP is elevated about 11 cm. PULMONARY: There is almost completely absent breath sound on the left lung. There is good air movement, but wheeze on the right lung, some crackles at the right base. CARDIAC: Regular rate and rhythm with 2/6 holosystolic murmur at the apex with radiation to the left axilla. ABDOMEN: Soft, nontender, but distended. EXTREMITIES: His lower extremities are warm and well perfused. Minimal edema. Positive dorsalis pedis pulses. LABORATORY DATA: His laboratory values from today are, chemistry: Sodium 143, potassium 3.7, BUN 31, creatinine 1.99, so this is slight improvement from yesterday. DIAGNOSTIC STUDIES: His CT of the chest shows much increased pleural effusion on the left lung. Essentially, his left lung is still with pleural effusion. The pleural effusion has now extended to the right base also. 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 Currently, complication such as ever increasing pleural effusion from chronic lymphocytic leukemia is his principal problem. He is having sufficient cardiac output to decrease the creatinine. His volume status has not changed much. Combination with pacing at 90 beats per minute with low-dose dobutamine has maximized cardiac output to support whatever choice that the family wishes to make. Some of the choices may be dobutamine can be turned off quickly. Overall, the combination comorbidity puts this patient at a very grim situation. The most reasonable pass forward will be consideration for hospice. RECOMMENDATIONS: 1. Continue augmentation with dobutamine 2.5 mcg/kg per minute. This is to continue his good renal perfusion to support whatever decisions the family finally makes. Combination of torsemide 20 mg and spironolactone 25 mg daily currently seem to be adequate. This could be the discharge home dose. 2. Agree with overall family meeting at 3:30 p.m. today. I look forward to meeting with the family and entire team. It has been a pleasure taking care of Mr. Rowland. If you have any questions, please give me a call. Job ID: [id number]
--- NOTE | 2019-10-17 14:08 | EKG ---
Test Reason : Blood Pressure : / mmHG Vent. Rate : 086 BPM Atrial Rate : 084 BPM P-R Int : 000 ms QRS Dur : 154 ms QT Int : 420 ms P-R-T Axes : 000 099 -86 degrees QTc Int : 502 ms Demand pacemaker; interpretation is based on intrinsic rhythm Undetermined rhythm Right bundle branch block T wave abnormality, consider inferolateral ischemia Abnormal ECG Confirmed by CRISTOPHER NEVAREZ ([id number]), proposal editor PATRICIA EVANS ([id number]) on 10/17/2019 2:07:54 PM Referred By: Confirmed By:CRISTOPHER NEVAREZ
[2019-10-17] MEDS: Multivit, Therapeutic 1 TAB PO SCH (14:37)
--- NOTE | 2019-10-17 15:00 | PDOC.PALPN ---
Palliative Progress Note - Subjective Cheerful, bedbound, pronounced weakness. - Objective Vital Signs: Vital Signs - Most Recent Temp Pulse Resp BP Pulse Ox 97.8 F 85 12 116/65 97 10/17/19 11:21 10/17/19 11:21 10/17/19 11:21 10/17/19 11:21 10/17/19 11:21 - Physical Exam Constitutional: ill appearing HEENT: EOMI, moist MMs Respiratory: no wheezing, diminished lung sound Cardiovascular: diminished peripheral pulses Gastrointestinal: soft Genitourinary: continent Musculoskeletal: diffuse muscle atrophy Neurology: moves all 4 limbs - Assessment (1) UZMA (acute kidney injury) Code(s): N17.9 - ACUTE KIDNEY FAILURE, UNSPECIFIED Current Visit: No Status : Acute (2) Acute on chronic systolic (congestive) heart failure Code(s): I50.23 - ACUTE ON CHRONIC SYSTOLIC (CONGESTIVE) HEART FAILURE Current Visit: No Status: Acute (3) Anemia in CKD (chronic kidney disease) Code(s): N18.9 - CHRONIC KIDNEY DISEASE, UNSPECIFIED; D63.1 - ANEMIA IN CHRONIC KIDNEY DISEASE Current Visit: No Status: Acute (4) Palliative care encounter Code(s): Z51.5 - ENCOUNTER FOR PALLIATIVE CARE Current Visit: No Status: Acute (5) Pleural effusion Code(s): J90 - PLEURAL EFFUSION, NOT ELSEWHERE CLASSIFIED Current Visit: No Status: Acute (6) Obesity (BMI 30-39.9) Code(s): E66.9 - OBESITY, UNSPECIFIED Current Visit: No Status: Chronic (7) Physical deconditioning Code(s): R53.81 - OTHER MALAISE Current Visit: No Status: Chronic (8) Ureterolithiasis Code(s): N20.1 - CALCULUS OF URETER Current Visit: No Status: Chronic - Plan Plan: [] minutes spent on this encounter with >50% of the time in counseling and coordination of care.
[2019-10-17] MEDS: DOBUTamine 500 mg/250 ml 500 MG in Premix Bag 1 BAG IVPB SCH (18:49)
[2019-10-17 19:38] VITALS: BP 136/61; TEMP 98.7
--- NOTE | 2019-10-17 19:40 | PDOC.HOSPP ---
- Subjective Encounter Date: 10/17/19 Encounter Time: 11:30 Subjective: Patient seen and examined for SOB. No new complaints. No overnight events - Objective Vital Signs & Weight: Vital Signs (12 hours) Temp Pulse Resp BP Pulse Ox 10/17/19 19:26 98.7 F 89 20 136/61 96 10/17/19 15:46 98.2 F 80 16 112/66 94 L 10/17/19 11:21 97.8 F 85 12 116/65 97 10/17/19 09:02 97.6 F 92 18 113/77 97 Weight Admit Weight 209 lb 14.4 oz Weight 209 lb 12.8 oz I&O: 10/16/19 10/17/19 10/18/19 06:59 06:59 06:59 Intake Total 1136 845 480 Output Total 1435 550 350 Balance -299 295 130 Result Diagrams: 10/17/19 04:01 10/17/19 04:01 Additional Labs: Accuchecks 10/17/19 10/16/19 10:46 20:30 POC Glucose 143 H 104 EKG Reviewed by me: Yes (Tele paced) Hospitalist ROS - Review of Systems Respiratory: reports: shortness of breath. denies: cough, dry, hemoptysis, SOB with excertion, pleuritic pain, sputum, wheezing, other Gastrointestinal: denies: nausea, vomiting, abdominal pain, diarrhea, constipation, melena, hematochezia, other - Medication Medications: Active Medications Generic Name Dose Route Start Last Admin Trade Name Freq PRN Reason Stop Dose Admin Acetaminophen 650 mg 10/14/19 00:45 10/16/19 20:24 Tylenol PO 650 mg Q4H PRN Administration Headache/Fever/Mild Pain (1-3) Allopurinol 100 mg 10/14/19 09:00 10/17/19 09:11 Zyloprim PO 100 mg DAILY BERNARDINO Administration Amiodarone HCl 200 mg 10/14/19 09:00 10/17/19 09:12 Cordarone PO 200 mg DAILY BERNARDINO Administration Apixaban 2.5 mg 10/15/19 21:00 10/17/19 09:11 Eliquis PO 2.5 mg BID BERNARDINO Administration Aspirin 81 mg 10/14/19 09:00 10/17/19 09:09 Ecotrin PO 81 mg DAILY BERNARDINO Administration Atorvastatin Calcium 20 mg 10/14/19 21:00 10/16/19 20:23 Lipitor PO 20 mg HS BERNARDINO Administration Cholecalciferol 1,000 units 10/14/19 09:00 10/17/19 09:10 Vitamin D3 PO 1,000 units DAILY BERNARDINO Administration Donepezil HCl 5 mg 10/14/19 21:00 10/16/19 20:23 Aricept PO 5 mg HS BERNARDINO Administration Dutasteride 0.5 mg 10/14/19 09:00 10/17/19 09:11 Avodart PO 0.5 mg DAILY BERNARDINO Administration Famotidine 20 mg 10/14/19 09:00 10/17/19 09:11 Pepcid PO 20 mg QAM BERNARDINO Administration Ferrous Sulfate 325 mg 10/14/19 17:00 10/17/19 16:40 Feosol PO 325 mg BID-WM BERNARDINO Administration Finasteride 5 mg 10/14/19 09:00 10/17/19 09:10 Proscar PO 5 mg DAILY BERNARDINO Administration Folic Acid 1 mg 10/14/19 09:00 10/17/19 09:10 Folvite PO 1 mg DAILY BERNARDINO Administration Gabapentin 100 mg 10/14/19 09:00 10/17/19 14:37 Neurontin PO 100 mg TID BERNARDINO Administration Dobutamine HCl/Dextrose 500 mg 250 mls @ 7.14 mls/hr 10/14/19 18:00 10/17/19 18:49 / Device IVPB 250 mls INF BERNARDINO Administration Protocol 2.5 MCG/KG/MIN Metoprolol Succinate 25 mg 10/14/19 21:00 10/17/19 09:12 Toprol Xl PO 25 mg Q12HR BERNARDINO Administration Multivitamins 1 tab 10/15/19 14:00 10/17/19 14:37 Theragran PO 1 tab 1400 BERNARDINO Administration Ibrutinib [Imbruvica 1 each 10/14/19 21:00 10/16/19 20:24 ] 280 Mg PO 1 each HS BERNARDINO Administration Polyethylene Glycol 17 gm 10/14/19 09:00 10/17/19 09:12 Miralax PO Not Given DAILY BERNARDINO Saccharomyces Boulardii 250 mg 10/14/19 09:00 10/17/19 09:10 Florastor PO 250 mg DAILY BERNARDINO Administration Sertraline HCl 100 mg 10/15/19 09:00 10/17/19 09:10 Zoloft PO 100 mg DAILY BERNARDINO Administration Sodium Chloride 10 ml 10/16/19 21:00 10/17/19 09:12 Flush - Normal Saline IVF 10 ml Q12HR BERNARDINO Administration Spironolactone 25 mg 10/16/19 08:00 10/17/19 09:11 Aldactone PO 25 mg QAM-WM BERNARDINO Administration Tamsulosin HCl 0.4 mg 10/14/19 09:00 10/17/19 09:11 Flomax PO 0.4 mg DAILY BERNARDINO Administration Torsemide 20 mg 10/17/19 09:00 10/17/19 09:11 Demadex PO 20 mg DAILY BERNARDINO Administration - Exam General Appearance: NAD Heart: no gallops, no rubs Respiratory: rales, rhonchi Respiratory - other findings: Dec AE on left Gastrointestinal: soft, non-tender, non-distended, normal bowel sounds Extremities: no cyanosis, no clubbing Hosp A/P - Plan Gen weakness/SOB - multifactorial Recurrent L Pleural effusion due to CLL CLL on Ibrutinib CKD 3 Chronic systolic HF 25-30% - on Dobutamine drip @2.5 h/o NSVT DM2 Chronic anticoag - on Eliquis Thrombocytopenia Horseshoe kidney with B/L renal calculi L ureteral calculi with hydronephrosis Prostate CA Physical deconditioning Type 2 ND - POA COPD PLAN: Cont Toprol XL Cont Dobutamine drip Cont Torsemide/Aldactone ACEI/ARB on hold due to UZMA Cont other meds as above AM labs Update@1700 Transfer to [facility] per family req for second opinion.
[2019-10-17] MEDS: Atorvastatin Calcium 20 MG TAB PO SCH (20:58)
[2019-10-17] MEDS: IBRUTINIB 280 MG PO SCH (20:58)
[2019-10-17] MEDS: Donepezil HCl 5 MG TAB PO SCH (20:58)
--- NOTE | 2019-10-18 15:00 | DIS ---
DATE OF ADMISSION: 10/14/2019 DATE OF DISCHARGE: 10/17/2019 DISCHARGE DISPOSITION: To [facility] in [place] for higher level of care. BRIEF HOSPITAL COURSE: The patient is an 89-year-old male with CKD stage 3, congestive heart failure with ejection fraction 25% to 30%, and chronic pleural effusion secondary to chronic lymphocytic leukemia, presented to the emergency room on October 14, 2019, with shortness of breath. His initial vital signs in the emergency room showed temperature 99.6 with pulse rate of 75, respirations of 22 with O2 saturation of 99% on 2 L nasal cannula. He was empirically started on vancomycin and cefepime in the emergency room. He was monitored on the telemetry unit. He did not receive any more antibiotics on the telemetry floor. His shortness of breath was probably secondary to malignant pleural effusion. He was evaluated by advanced congestive heart failure specialist, Dr. Woodward. His symptoms partially improved with dobutamine drip. He also intermittently received Lasix. CT scan of the chest was consistent with enlarging large left and [id number] right pleural effusion with worsening volume loss within the left lung with shifting of the mediastinum to the left. He will be transferred to [facility] for higher level of care per family's request. He is not a candidate for PleurX catheter at this time. The patient has a history of left ureteral calculi with hydronephrosis. He was scheduled to see Dr. Tejada on the day of admission. During this hospital course, the patient was evaluated by Dr. Tejada. Due to multiple comorbidities, he is probably not a surgical candidate. After extensive family meeting today, it was decided that the patient will be transferred to [facility] for higher level of care. FINAL DIAGNOSES: 1. Generalized weakness with shortness of breath, probably secondary to bilateral malignant pleural effusion. Sepsis ruled out. 2. Chronic lymphocytic leukemia, on ibrutinib. 3. Acute kidney injury on chronic kidney disease stage 3, improved with dobutamine drip. 4. History of nonsustained ventricular tachycardia. 5. Chronic systolic heart failure, ejection fraction 25% to 30% range. 6. Diabetes mellitus type 2. 7. Chronic anticoagulation, on Eliquis. 8. Thrombocytopenia. 9. Horseshoe kidney with bilateral renal calculi. 10. Left ureteral calculi with hydronephrosis. 11. Prostate cancer. 12. Physical deconditioning. 13. Type 2 myocardial infarction, present on admission. 14. Chronic obstructive pulmonary disease. Job ID: [id number]
== END 2019-10-17 22:30 | disposition short-term general hospital (02) | DRG 840 ==
LOC: ERS 22:07 → ONC 10-14 01:21 → 2NO 10-14 04:54
PROVIDERS: ADMIT Internal Medicine; ATTEND Internal Medicine
DX: C91.10 Chronic lymphocytic leukemia of B-cell type not having achieved remission (principal); I21.A1 Myocardial infarction type 2; I42.9 Cardiomyopathy, unspecified; N17.9 Acute kidney failure, unspecified; I13.0 Hypertensive heart and chronic kidney disease with heart failure and stage 1 through stage 4 chronic kidney disease, or unspecified chronic kidney disease; N13.2 Hydronephrosis with renal and ureteral calculous obstruction; J91.0 Malignant pleural effusion; I50.22 Chronic systolic (congestive) heart failure; J44.9 Chronic obstructive pulmonary disease, unspecified; R79.89 Other specified abnormal findings of blood chemistry; E78.5 Hyperlipidemia, unspecified; E11.22 Type 2 diabetes mellitus with diabetic chronic kidney disease; G20 Parkinson's disease; C61 Malignant neoplasm of prostate; R53.81 Other malaise; D63.1 Anemia in chronic kidney disease; E66.9 Obesity, unspecified; N18.3 Chronic kidney disease, stage 3 (moderate); D69.6 Thrombocytopenia, unspecified; Z79.01 Long term (current) use of anticoagulants; Z95.810 Presence of automatic (implantable) cardiac defibrillator; Z90.49 Acquired absence of other specified parts of digestive tract; Z90.89 Acquired absence of other organs; Z87.891 Personal history of nicotine dependence; Q63.1 Lobulated, fused and horseshoe kidney; Z68.31 Body mass index [BMI] 31.0-31.9, adult
CPT/HCPCS: 36415; 36416; 71045; 71250; 80053; 81001; 82553; 83735; 83880; 84484; 85025; 85610; 85730; 87086; 93005; 94760; 96365; 96367; J0692; J1250; J1940; J3370; P9047